=== PATIENT | female | born 1960 | race Caucasian/White ===

== ENCOUNTER 2021-10-22 20:44 | Inpatient (IN) ==
[2021-10-22] MEDS ORDERED: dilTIAZem HCl 5 MG/ML 5 ML VIAL IV STA (21:22)
[2021-10-22] MEDS ORDERED: STAT IV Infusion **Titration per Protocol STA (21:22)
[2021-10-22 21:26] LABS: Basophils # (auto) 0.02 K/uL (0-0.2); Basophils % (auto) 0.2 %; Eosinophils # (auto) 0.11 K/uL (0-0.5); Eosinophils % (auto) 1.1 %; Hematocrit (blood only) 36.7 % (37-47); Hemoglobin 11.6 g/dL (12.0-16.0); Immature Granulocytes # (auto) 0.03 K/uL (0.00-0.02); Immature Granulocytes % (auto) 0.3 %; Lymphocytes # (auto) 2.85 K/uL (1.2-3.4); Lymphocytes % (auto) 27.6 %; Mean Corpuscular Hemoglobin 26.4 pg (25-34); Mean Corpuscular Hgb Conc 31.6 g/dL (32-36); Mean Corpuscular Volume 83.6 fL (80-100); Mean Platelet Volume 9.8 fL (7.4-10.4); Monocytes # (auto) 0.88 K/uL (0.11-0.59); Monocytes % (auto) 8.5 %; Neutrophils # (auto) 6.44 K/uL (1.4-6.5); Neutrophils % (auto) 62.3 %; Platelet Count 303 K/uL (130-400); RDW Standard Deviation 46.2 fL (36.4-46.3); Red Blood Count 4.39 M/uL (4.2-5.4); White Blood Count 10.33 K/uL (4.8-10.8)
[2021-10-22] MEDS ORDERED: dilTIAZem HCL 125 MG in DEXTROSE 5% 100 ML IV SCH (21:30)
[2021-10-22 21:47] LABS: Partial Thromboplastin Ratio 0.9; Partial Thromboplastin Time 23.4 Seconds (21.0-31.0); Prothrombin Time 10.6 Seconds (9.0-12.0)
[2021-10-22 21:50] LABS: Alanine Aminotransferase 15 U/L (12-78); Albumin Globulin Ratio 0.8 (0.9-2); Albumin Level 3.7 gm/dl (3.4-5.0); Alkaline Phosphatase 66 U/L (45-117); Aspartate Aminotransferase 12 U/L (15-37); BUN Creatinine Ratio 20.2 (10-20); Bilirubin,Total 0.5 mg/dl (0.2-1); Blood Urea Nitrogen 21 mg/dl (7-18); Calcium 8.7 mg/dl (8.5-10.1); Carbon Dioxide 25 mmol/L (21-32); Chloride 105 mmol/L (98-107); Est GFR (African American) 66.6 ml/min; Est GFR (Non-African American) 57.4 ml/min; Globulin 4.4 gm/dl (2.5-4.0); Glucose 122 mg/dl (70-99); Lipase 151 U/L (73-393); Potassium 3.2 mmol/L (3.5-5.1); Sodium 140 mmol/L (136-145); Total Protein 8.1 gm/dl (6.4-8.2); Troponin I < 0.015 ng/ml (0-0.045)
[2021-10-22] MEDS ORDERED: Heparin IV Adult Wt-Based Low-Dose WITH Bolus Protocol IV STA (21:57)
[2021-10-22] MEDS ORDERED: HEPARIN SOD (PORCINE) 1000 UNIT/ML IV ONE (22:12)
[2021-10-22] MEDS ORDERED: HEPARIN SODIUM/DEXTROSE 25,000 UNITS/500 ML BAG IV SCH (22:15)
--- NOTE | 2021-10-22 23:38 | Emergency Department Note ---
Impression & Plan Atrial fibrillation with rapid ventricular response ED Provider Note Provider: Sctot Paulson MD DATE OF SERVICE: 10/22/2021 CHIEF COMPLAINT: Heart palpitations, back discomfort HISTORY OF PRESENT ILLNESS: Patient is a 60-year-old female history of hypertension and hypothyroidism presenting here today with maggy reporting onset about an hour prior to arrival of some palpitation sensation. Patient states he felt like her heart was beating fast and this is been consistent since it began. Patient denies chest pain or shortness of breath. Denies trauma. Reports has had little bit of back discomfort throughout the day and did come home from [facility]. Denies history of cardiac arrhythmia. Denies a significant cardiac history. Patient denies syncope. Denies fever or URI symptoms. Patient reports she does not take any aspirin regularly. REVIEW OF SYSTEMS: A total of 10 review of systems was obtained and negative except as stated above in the HPI. PAST MEDICAL HISTORY: As noted above MEDICATIONS: Reviewed home medications SOCIAL HISTORY:lives at home with maggy, works at [employer] PHYSICAL EXAM: GENERAL: alert and oriented in no acute distress on stretcher Head: normocephalic and atraumatic EYES: No injection, discharge or icterus. NECK: Trachea midline. LUNGS: Airway patent. No retractions. Breath sounds clear HEART: Irregular tachycardic rate and rhythm. No chest wall tenderness ABDOMEN: Soft and non-tender, without guarding or rebound. SKIN: Acyanotic, warm, dry EXTREMITIES: Without tenderness with 1+ bilateral lower extremity edema. NEUROLOGICAL: No focal deficits. No aphasia. No facial droop or slurred speech. Ambulatory EK bpm atrial fibrillation with rapid ventricular response. No acute ST segment elevation but diffuse ST segment depressions. QTc 458. CONTINUOUS CARDIAC MONITORING: was ordered and showed a heart rate of 100s to 150s bpm in atrial fibrillation 1 view chest x-ray per my interpretation: No evidence of pneumothorax or pneumonia. Borderline cardiomegaly. No free air under the diaphragm. Patient's laboratory studies and imaging reviewed. Differential includes Premature contractions, electrolyte abnormality, cardiac dysrhythmia, thyroid dysfunction, pulmonary embolism, infection, gastrointestinal, as well as other pathologies. IMPRESSION/MEDICAL DECISION MAKING: Patient with what appears to be new onset rapid atrial fibrillation. Given diltiazem start diltiazem drip. Blood pressure is elevated. Some mild back discomfort. Denies anterior chest pain. No trauma history. Mild hypokalemia noted but no signs of renal dysfunction. Troponin not elevated but some EKG changes indicative of likely some possible demand ischemia. Question she may bump her troponin going forward. Again rate control be important. Doubt acute ACS. Will start heparin drip. Not with severe back pain or chest pain and lower suspicion this represents dissection. No evidence of hepatitis or pancreatitis based on labs. Covid test negative. Patient not anxious to stay but after discussion with her and her fianc at bedside she was willing for further cardiac care here. Hospitalist contacted. DIAGNOSIS: Atrial fibrillation with rapid ventricular response DISPOSITION: Hospitalist will evaluate Patient was agreeable with this plan. Critical Care I have personally spent 32 minutes of critical care time in the direct management of this patient. This includes bedside care, interpretation of diagnostic studies, and testing, discussion with consultants, patient, and family members, and other required patient management activities. These 32 minutes is in excess of all separately billable procedures. Past Med/Surg History Medical History Hypertension Social History Smoking Status: Never smoker Preferred Language: Com[place] Feels Safe at Home: Yes Allergies Allergies Allergy/AdvReac Type Severity Reaction Status Date / Time lisinopril Allergy Unknown RASH Verified 10/22/21 22:16 simvastatin Allergy Unknown UNKNOWN Verified 10/22/21 22:16 baby oil Allergy Intermediate Rash Uncoded 10/22/21 22:16 Home Meds Home Medications Medication Instructions Recorded Confirmed alendronate 70 mg tablet 70 mg PO WK 02/04/21 10/22/21 atenolol 50 mg tablet 50 mg PO QAM 02/04/21 10/22/21 hydrochlorothiazide 25 mg tablet 25 mg PO QAM 02/04/21 10/22/21 naproxen 500 mg tablet 500 mg PO BID PRN 02/04/21 10/22/21 atorvastatin 20 mg tablet 20 mg PO DAILY 10/23/21 10/23/21 levothyroxine 100 mcg tablet 100 mcg PO DAILY 10/23/21 10/23/21 (Euthyrox) Previous Rx's Medication Instructions Recorded oxycodone-acetaminophen 5 mg-325 1 tab PO Q6H PRN #12 tab 02/04/21 mg tablet (Percocet) Results & Data (ED) Vital Signs Vital Signs - 24 hr 10/22/21 20:45 10/22/21 20:49 10/22/21 20:50 Temperature 36.4 C L Temperature Source Temporal Artery Scan Pulse Rate 149 H Pulse Rate [Finger] 140 H Pulse Rate from SpO2 Sensor Pulse Rhythm [Finger] Irregular Pulse Strength [Finger] Normal Respiratory Rate 18 16 Respiratory Effort / Characteristics Non-Labored Spontaneous Non-Labored Spontaneous Respiratory Depth Normal Respiratory Pattern Regular Blood Pressure 198/113 H Blood Pressure [Left Arm] 185/130 H Blood Pressure Mean 141 Blood Pressure Mean [Left Arm] 148 Blood Pressure Position Sitting Blood Pressure Position [Left Arm] Sitting Pulse Oximetry 97 99 99 Oxygen Delivery Method Room Air Room Air Room Air Sepsis Recent Fever Within 48 Hours No Sepsis New/Unexplained Change in Mental Status No Sepsis Action Taken by Nursing No Action Required 10/22/21 21:11 10/22/21 21:15 10/22/21 21:30 Temperature Temperature Source Pulse Rate 142 H 163 H 168 H Pulse Rate [Finger] Pulse Rate from SpO2 Sensor 109 H 154 H Pulse Rhythm [Finger] Pulse Strength [Finger] Respiratory Rate 20 37 H 21 Respiratory Effort / Characteristics Respiratory Depth Respiratory Pattern Blood Pressure Blood Pressure [Left Arm] Blood Pressure Mean Blood Pressure Mean [Left Arm] Blood Pressure Position Blood Pressure Position [Left Arm] Pulse Oximetry 99 98 Oxygen Delivery Method Sepsis Recent Fever Within 48 Hours Sepsis New/Unexplained Change in Mental Status Sepsis Action Taken by Nursing 10/22/21 21:45 10/22/21 22:00 10/22/21 22:15 Temperature Temperature Source Pulse Rate 116 H 146 H 118 H Pulse Rate [Finger] Pulse Rate from SpO2 Sensor 99 H 105 H 99 H Pulse Rhythm [Finger] Pulse Strength [Finger] Respiratory Rate 20 14 15 Respiratory Effort / Characteristics Respiratory Depth Respiratory Pattern Blood Pressure Blood Pressure [Left Arm] Blood Pressure Mean Blood Pressure Mean [Left Arm] Blood Pressure Position Blood Pressure Position [Left Arm] Pulse Oximetry 97 98 97 Oxygen Delivery Method Sepsis Recent Fever Within 48 Hours Sepsis New/Unexplained Change in Mental Status Sepsis Action Taken by Nursing 10/22/21 22:30 10/22/21 22:45 10/22/21 23:00 Temperature Temperature Source Pulse Rate 154 H 135 H 157 H Pulse Rate [Finger] Pulse Rate from SpO2 Sensor 134 H 107 H 104 H Pulse Rhythm [Finger] Pulse Strength [Finger] Respiratory Rate 17 18 16 Respiratory Effort / Characteristics Respiratory Depth Respiratory Pattern Blood Pressure Blood Pressure [Left Arm] Blood Pressure Mean Blood Pressure Mean [Left Arm] Blood Pressure Position Blood Pressure Position [Left Arm] Pulse Oximetry 97 97 97 Oxygen Delivery Method Sepsis Recent Fever Within 48 Hours Sepsis New/Unexplained Change in Mental Status Sepsis Action Taken by Nursing 10/22/21 23:15 10/22/21 23:30 10/22/21 23:45 Temperature Temperature Source Pulse Rate 150 H 135 H 125 H Pulse Rate [Finger] Pulse Rate from SpO2 Sensor 93 H 106 H 105 H Pulse Rhythm [Finger] Pulse Strength [Finger] Respiratory Rate 19 13 14 Respiratory Effort / Characteristics Respiratory Depth Respiratory Pattern Blood Pressure Blood Pressure [Left Arm] Blood Pressure Mean Blood Pressure Mean [Left Arm] Blood Pressure Position Blood Pressure Position [Left Arm] Pulse Oximetry 97 97 96 Oxygen Delivery Method Sepsis Recent Fever Within 48 Hours Sepsis New/Unexplained Change in Mental Status Sepsis Action Taken by Nursing 10/23/21 00:05 10/23/21 00:15 10/23/21 00:30 Temperature Temperature Source Pulse Rate 172 H 155 H 145 H Pulse Rate [Finger] Pulse Rate from SpO2 Sensor 97 H 94 H 100 H Pulse Rhythm [Finger] Pulse Strength [Finger] Respiratory Rate 18 18 Respiratory Effort / Characteristics Respiratory Depth Respiratory Pattern Blood Pressure Blood Pressure [Left Arm] Blood Pressure Mean Blood Pressure Mean [Left Arm] Blood Pressure Position Blood Pressure Position [Left Arm] Pulse Oximetry 96 97 97 Oxygen Delivery Method Sepsis Recent Fever Within 48 Hours Sepsis New/Unexplained Change in Mental Status Sepsis Action Taken by Nursing Laboratory Data Result diagrams: 10/22/21 21:12 10/22/21 21:12 Lab Results 10/22/21 10/22/21 10/22/21 Range/Units 21:12 21:12 21:12 WBC 10.33 (4.8-10.8) K/uL RBC 4.39 (4.2-5.4) M/uL Hgb 11.6 L (12.0-16.0) g/dL Hct 36.7 L (37-47) % MCV 83.6 (80-100) fL MCH 26.4 (25-34) pg MCHC 31.6 L (32-36) g/dL RDW Std Deviation 46.2 (36.4-46.3) fL RDW Coeff of Johnny 15.0 H (11.5-14.5) % Plt Count 303 (130-400) K/uL MPV 9.8 (7.4-10.4) fL Immature Gran % (Auto) 0.3 % Neut % (Auto) 62.3 % Lymph % (Auto) 27.6 % [place] % (Auto) 8.5 % Eos % (Auto) 1.1 % Baso % (Auto) 0.2 % Neut # (Auto) 6.44 (1.4-6.5) K/uL Lymph # (Auto) 2.85 (1.2-3.4) K/uL [place] # (Auto) 0.88 H (0.11-0.59) K/uL Eos # (Auto) 0.11 (0-0.5) K/uL Baso # (Auto) 0.02 (0-0.2) K/uL Immature Gran # (Auto) 0.03 H (0.00-0.02) K/uL PT 10.6 (9.0-12.0) Seconds INR 1.0 (0.9-1.1) APTT 23.4 (21.0-31.0) Seconds PTT Ratio 0.9 Sodium 140 (136-145) mmol/L Potassium 3.2 L (3.5-5.1) mmol/L Chloride 105 (98-107) mmol/L Carbon Dioxide 25 (21-32) mmol/L Anion Gap 10.0 (3-11) BUN 21 H (7-18) mg/dl Creatinine 1.06 (0.6-1.2) mg/dl Est Cr Clr Drug Dosing Not Reportable Est GFR ( Amer) 66.6 ml/min Est GFR (Non-Af Amer) 57.4 ml/min BUN/Creatinine Ratio 20.2 H (10-20) Glucose 122 H (70-99) mg/dl Calcium 8.7 (8.5-10.1) mg/dl Total Bilirubin 0.5 (0.2-1) mg/dl AST 12 L (15-37) U/L ALT 15 (12-78) U/L Alkaline Phosphatase 66 (45-117) U/L Troponin I < 0.015 (0-0.045) ng/ml Total Protein 8.1 (6.4-8.2) gm/dl Albumin 3.7 (3.4-5.0) gm/dl Globulin 4.4 H (2.5-4.0) gm/dl Albumin/Globulin Ratio 0.8 L (0.9-2) Lipase 151 (73-393) U/L Specimen Hemolysis SARS-CoV-2, RNA, NAAT (NEGATIVE) 10/22/21 Range/Units 22:00 WBC (4.8-10.8) K/uL RBC (4.2-5.4) M/uL Hgb (12.0-16.0) g/dL Hct (37-47) % MCV (80-100) fL MCH (25-34) pg MCHC (32-36) g/dL RDW Std Deviation (36.4-46.3) fL RDW Coeff of Johnny (11.5-14.5) % Plt Count (130-400) K/uL MPV (7.4-10.4) fL Immature Gran % (Auto) % Neut % (Auto) % Lymph % (Auto) % [place] % (Auto) % Eos % (Auto) % Baso % (Auto) % Neut # (Auto) (1.4-6.5) K/uL Lymph # (Auto) (1.2-3.4) K/uL [place] # (Auto) (0.11-0.59) K/uL Eos # (Auto) (0-0.5) K/uL Baso # (Auto) (0-0.2) K/uL Immature Gran # (Auto) (0.00-0.02) K/uL PT (9.0-12.0) Seconds INR (0.9-1.1) APTT (21.0-31.0) Seconds PTT Ratio Sodium (136-145) mmol/L Potassium (3.5-5.1) mmol/L Chloride (98-107) mmol/L Carbon Dioxide (21-32) mmol/L Anion Gap (3-11) BUN (7-18) mg/dl Creatinine (0.6-1.2) mg/dl Est Cr Clr Drug Dosing Est GFR ( Amer) ml/min Est GFR (Non-Af Amer) ml/min BUN/Creatinine Ratio (10-20) Glucose (70-99) mg/dl Calcium (8.5-10.1) mg/dl Total Bilirubin (0.2-1) mg/dl AST (15-37) U/L ALT (12-78) U/L Alkaline Phosphatase (45-117) U/L Troponin I (0-0.045) ng/ml Total Protein (6.4-8.2) gm/dl Albumin (3.4-5.0) gm/dl Globulin (2.5-4.0) gm/dl Albumin/Globulin Ratio (0.9-2) Lipase (73-393) U/L Specimen Hemolysis SARS-CoV-2, RNA, NAAT NEGATIVE (NEGATIVE) Administered Medications Diltiazem HCl 125 mg/ Dextrose 125 mls @ 5 mls/hr IV .Q24H BALJEET; Protocol Stop: 11/21/21 21:29 Last Admin: 10/22/21 21:57 Dose: 5 mg/hr, 5 mls/hr Documented by: [id number] Cosigned by: [id number] Heparin Sodium/Dextrose (Heparin Sodium/Dextrose) 25,000 units in 500 mls @ 20 mls/hr IV .Q24H BALJEET; Protocol Stop: 11/21/21 22:14 Last Admin: 10/23/21 00:51 Dose: 1,000 units/hr, 20 mls/hr Documented by: [id number] Cosigned by: [id number] Discontinued Medications Diltiazem HCl (Diltiazem Hcl 5 Mg/Ml 5 Ml Vial) 10 mg IV NOW STA Stop: 10/22/21 21:23 Last Admin: 10/22/21 21:37 Dose: 10 mg Documented by: [id number] Cosigned by: [id number] Diltiazem HCl (Diltiazem Hcl 5 Mg/Ml 5 Ml Vial) 10 mg IV NOW STA Stop: 10/23/21 00:39 Last Admin: 10/23/21 00:56 Dose: 10 mg Documented by: [id number] Cosigned by: [id number] Heparin Sodium/Dextrose (Heparin Iv Adult Wt-Based Low-Dose With Bolus Protocol) 1 ea IV NOW STA; Protocol Stop: 10/22/21 21:58 Last Admin: 10/23/21 00:53 Dose: 4,000 ea Documented by: [id number] Discharge Plan Visit Data Chief Complaint: Chest Pain Stated Complaint: CHEST PAIN ED Provider: Scott Paulson Discharge Problem: Atrial fibrillation with rapid ventricular response Patient Disposition: Admitted As Inpatient Discharge Instructions Interventions: ED Discharge Assessment Last Done: 10/23/21 02:21
[2021-10-23] MEDS ORDERED: dilTIAZem HCl 5 MG/ML 5 ML VIAL IV STA (00:38)
[2021-10-23] MEDS ORDERED: oxyCODONE/ACETAMINOPHEN 5mg/325mg TAB PO PRN (02:15)
[2021-10-23] MEDS ORDERED: ACETAMINOPHEN 325 MG TAB PO PRN (02:15)
[2021-10-23] MEDS ORDERED: NITROGLYCERIN SL 0.4 MG/TAB TAB SL PRN (02:15)
[2021-10-23] MEDS ORDERED: ONDANSETRON INJ 2 MG/ML 2 ML VIAL IV PRN (02:15)
[2021-10-23] MEDS ORDERED: LEVOTHYROXINE SODIUM 100 MCG TABLET PO SCH (06:30)
[2021-10-23] MEDS ORDERED: POTASSIUM CHLORIDE CRTAB 20 MEQ TABCR PO STA (07:03)
[2021-10-23 07:23] LABS: Basophils # (auto) 0.03 K/uL (0-0.2); Basophils % (auto) 0.4 %; Eosinophils # (auto) 0.09 K/uL (0-0.5); Eosinophils % (auto) 1.3 %; Hematocrit (blood only) 35.5 % (37-47); Hemoglobin 11.1 g/dL (12.0-16.0); Immature Granulocytes # (auto) 0.01 K/uL (0.00-0.02); Immature Granulocytes % (auto) 0.1 %; Lymphocytes # (auto) 2.52 K/uL (1.2-3.4); Lymphocytes % (auto) 36.4 %; Mean Corpuscular Hemoglobin 26.2 pg (25-34); Mean Corpuscular Hgb Conc 31.3 g/dL (32-36); Mean Corpuscular Volume 83.9 fL (80-100); Mean Platelet Volume 9.6 fL (7.4-10.4); Monocytes # (auto) 0.57 K/uL (0.11-0.59); Monocytes % (auto) 8.2 %; Neutrophils % (auto) 53.6 %; Platelet Count 280 K/uL (130-400); RDW Coefficient of Variation 15.1 % (11.5-14.5); RDW Standard Deviation 46.6 fL (36.4-46.3); Red Blood Count 4.23 M/uL (4.2-5.4); White Blood Count 6.92 K/uL (4.8-10.8)
[2021-10-23 07:42] LABS: Partial Thromboplastin Ratio 1.8
--- NOTE | 2021-10-23 07:42 | History and Physical Report ---
DATE OF ADMISSION: 10/23/2021. CHIEF COMPLAINT: New-onset atrial fibrillation. HISTORY OF PRESENT ILLNESS: This is a 60-year-old female with past medical history significant for hyperlipidemia, hypothyroidism, prediabetes, hypertension, obesity, female infertility, senile osteoporosis, depression, psychosis unspecific, comes because of feeling chest discomfort and palpitations in the evening. In the ER, she was found to have rapid AFib. Started on Cardizem drip and IV heparin. Currently, feeling better, but when she was trying to go to bathroom, she was feeling dizzy. Denies any shortness of breath, no cough, no fever, no chills, no headache, no blurred visions, no earache, no runny nose, no sore throat, no nausea, no abdominal pain. Normal bowel and bladder movements. Currently resting comfortably. ALLERGIES: LISINOPRIL, SIMVASTATIN, AND BABY OIL. PAST MEDICAL HISTORY: As mentioned above. PAST SURGICAL HISTORY: Cystoscopy, bilateral hip fracture repair. MEDICATIONS: The patient is on alendronate 70 mg p.o. weekly, atenolol 50 mg p.o. a.m., hydrochlorothiazide 25 mg p.o. a.m., naproxen 500 mg p.o. b.i.d. p.r.n., Percocet 1 tablet p.o. q. 6 hours p.r.n. FAMILY HISTORY: Significant for mother had cervical cancer, stroke; father had diabetes, hypertension. SOCIAL HISTORY: No smoking. Alcohol rare. No drug use. REVIEW OF SYSTEMS: As per HPI. Rest of the review of systems is negative. PHYSICAL EXAMINATION: GENERAL: The patient is morbidly obese, not in acute distress. VITAL SIGNS: Temperature 36.4, pulse 143, respiratory rate 16, blood pressure 180s/110s, oxygen 99% on room air. HEENT: Pupils equal, round and reactive to light. Oral mucosa moist. NECK: No JVD, no neck masses. CARDIOVASCULAR: S1 and S2 heard, tachycardia. Irregular rhythm. No murmurs. RESPIRATORY SYSTEM: Normal AP diameter. No accessory muscle use. No wheezing, no crackles. ABDOMEN: Soft. Bowel sounds present, nontender, no distention. CENTRAL NERVOUS SYSTEM: Cranial nerves II-XII grossly intact, nonfocal. EXTREMITIES: Bilateral lower extremity edema present, no erythema seen. LABORATORY DATA: WBC 10.3, hemoglobin 11.6, hematocrit 36.7, platelets 303. PT 10.6, INR 1, APTT 23.4. Sodium 140, potassium 3.2, chloride 105, bicarbonate 25, BUN 21, creatinine 1.06, serum glucose 102, calcium 8.7, total bilirubin 0.5, AST 12, ALT 15, alkaline phosphatase 66. Troponin I less than 0.015. Lipase 151. SARS-CoV-2 PCR negative. IMAGING DATA: Chest x-ray, no acute findings. EKG: Rapid AFib at the rate of 148. ST abnormalities seen. ASSESSMENT AND PLAN: This is a 60-year-old female who presents with chest discomfort and rapid atrial fibrillation. 1. Rapid atrial fibrillation, new onset: ER started on Cardizem drip and heparin drip, which will be continued. Monitor the heart rates. Monitor in the tele. Serial enzymes, echo, and keep her n.p.o. and consult cardiology in the a.m. for further recommendations. 2. Chest discomfort probably from above. Will follow serial enzymes, echocardiograms, and consult cardiology in the a.m. 3. History of hypertension: Continue her home atenolol and hydrochlorothiazide. Currently getting Cardizem drip. Will monitor the blood pressure. 4. Morbid obesity: Needs counseling. 5. Hypothyroidism: On levothyroxine. 6. Prediabetes: Will follow HbA1c levels.ISS 7. Osteoporosis: On alendronate. 8. Deep venous thrombosis prophylaxis: On IV heparin. DISPOSITION: Admit to tele floor. Expect to discharge home and follow with family doctor. Job ID: [id number] [facility]
[2021-10-23 07:51] LABS: BUN Creatinine Ratio 25.8 (10-20); Calcium 8.5 mg/dl (8.5-10.1); Creatinine Clr Calc Pharmacy 107.5 ml/min; Est GFR (African American) 88.2 ml/min; Est GFR (Non-African American) 76.1 ml/min; Magnesium 2.4 mg/dl (1.8-2.4); Potassium 3.4 mmol/L (3.5-5.1)
[2021-10-23 07:54] LABS: Partial Thromboplastin Time 46.8 Seconds (21.0-31.0)
[2021-10-23 08:11] LABS: Thyroid Stimulating Hormone 2.54 uIu/ml (0.300-4.500); Troponin I 0.227 ng/ml (0-0.045)
--- NOTE | 2021-10-23 08:54 | Cardiology Consultation ---
Date of Consultation October 23, 2021 Assessment & Plan (1) Atrial fibrillation with rapid ventricular response: (2) Hypertension: The patient spontaneously converted to normal sinus rhythm and I believe she can be continued on her beta-annamaria for now. In regard to anticoagulation, the patient's Gilbert vas score is 2 so she should return home on anticoagulation. An echocardiogram was completed and I will review it. I believe the borderline elevation in her cardiac troponin is related to stress from the atrial fibrillation and RVR and not acute coronary syndrome. History of Present Illness Attending Physician: Dagmar Soriano MD History of Present Illness This is a morbidly obese 60-year-old female who presented with heart palpitations and tachycardia. The patient was found to be in atrial fibrillation with RVR when she arrived to the emergency department. The patient was admitted and started on a diltiazem drip to control her heart rate. She converted spontaneously to sinus rhythm overnight. She has maintained sinus rhythm for several hours. She has no previous history of heart disease. No previous history of atrial arrhythmias. The patient's second troponin is slightly elevated which most likely reflects stress induced leakage of troponin due to the atrial fibrillation with RVR. Echocardiogram was completed and I will review it when it is available. Past medical history: Female infertility DEPRESS PSYCHOSIS-UNSPEC Dyslipidemia, goal LDL below 160 Adult body mass index 60.0-69.9 (HCC) Hypothyroidism due to acquired atrophy of thyroid Essential hypertension with goal blood pressure less than 140/90 Senile osteoporosis Prediabetes Allergies Allergy/AdvReac Type Severity Reaction Status Date / Time lisinopril Allergy Unknown RASH Verified 10/22/21 22:16 simvastatin Allergy Unknown UNKNOWN Verified 10/22/21 22:16 baby oil Allergy Intermediate Rash Uncoded 10/22/21 22:16 Home Medications Medication Instructions Recorded Confirmed Type alendronate 70 mg tablet 70 mg PO WK 02/04/21 10/22/21 History atenolol 50 mg tablet 50 mg PO QAM 02/04/21 10/22/21 History hydrochlorothiazide 25 mg tablet 25 mg PO QAM 02/04/21 10/22/21 History naproxen 500 mg tablet 500 mg PO BID PRN 02/04/21 10/22/21 History oxycodone-acetaminophen 5 mg-325 1 tab PO Q6H PRN #12 tab 02/04/21 10/22/21 Rx mg tablet (Percocet) atorvastatin 20 mg tablet 20 mg PO DAILY 10/23/21 10/23/21 History levothyroxine 100 mcg tablet 100 mcg PO DAILY 10/23/21 10/23/21 History (Euthyrox) Patient History Medical History Hypertension Social History Smoking Status: Never smoker Second Hand Exposure: No; Do You Dip or Chew Tobacco: No; Hx Alcohol Use: No Hx Substance Use: No Preferred Language: Greenlandic Communication Ability: Effective Cigar Inspector Required: No Beliefs That Will Affect Care: None Current Living Situation: Other Current Living Situation Comment: Home with Fiancee Other Information That Helps Us Care for You: No Feels Safe at Home: Yes Safety Concerns: Feels Safe At This Time Assistive Devices: Cane and Walker Review of Systems Review of Systems: Review of Systems: See HPI for pertinent positives. All other 10 point review of systems are negative. Physical Exam Physical Exam: General: no acute distress and stated age Head: normocephalic, no masses, lesions, tenderness or abnormalities Eyes: conjunctiva are pink and non-injected, sclera clear Neck: supple, no adenopathy, no bruits, normal jugular venous pulse, no hepatojugular reflux Chest: normal shape and normal respiratory effort Lungs: clear to auscultation and percussion Cardiac Exam: - regular rate & rhythm, no murmurs gallops or rubs - normal S1, normal S2 Pulses: 2(+) throughout Abdomen: abdomen soft, non-tender, no abnormal masses and no hepatosplenomegaly Musculoskeletal: no gait disturbance, no joint inflammation, no deforming arthritis Extremities: no edema and no cyanosis Neuro: grossly normal exam Results & Data ([facility]) Vital Signs (Past 12 Hours) Vital Signs Temp Pulse Pulse Resp BP BP Pulse Ox 10/23/21 07:00 36.8 C 71 20 169/81 H 95 10/23/21 03:50 36.7 C 72 20 188/92 H 96 10/23/21 02:38 127 H 10/23/21 02:15 37 C 80 17 142/61 H 96 10/23/21 01:45 112 H 20 96 10/23/21 01:30 108 H 18 96 10/23/21 01:15 135 H 17 95 10/23/21 01:00 147 H 18 117/78 97 10/23/21 00:45 125 H 16 160/89 H 96 10/23/21 00:30 145 H 18 97 10/23/21 00:15 155 H 18 97 10/23/21 00:05 172 H 96 10/22/21 23:45 125 H 14 96 10/22/21 23:30 135 H 13 97 10/22/21 23:15 150 H 19 97 10/22/21 23:00 157 H 16 97 10/22/21 22:45 135 H 18 97 10/22/21 22:30 154 H 17 97 10/22/21 22:15 118 H 15 97 10/22/21 22:00 146 H 14 98 10/22/21 21:45 116 H 20 97 10/22/21 21:30 168 H 21 98 10/22/21 21:15 163 H 37 H 99 10/22/21 21:11 142 H 20 Laboratory Results Laboratory Results - last 24 hr 10/22/21 10/22/21 10/22/21 21:12 21:12 21:12 WBC 10.33 RBC 4.39 Hgb 11.6 L Hct 36.7 L MCV 83.6 MCH 26.4 MCHC 31.6 L RDW Std Deviation 46.2 RDW Coeff of Johnny 15.0 H Plt Count 303 MPV 9.8 Immature Gran % (Auto) 0.3 Neut % (Auto) 62.3 Lymph % (Auto) 27.6 [place] % (Auto) 8.5 Eos % (Auto) 1.1 Baso % (Auto) 0.2 Neut # (Auto) 6.44 Lymph # (Auto) 2.85 [place] # (Auto) 0.88 H Eos # (Auto) 0.11 Baso # (Auto) 0.02 Immature Gran # (Auto) 0.03 H PT 10.6 INR 1.0 APTT 23.4 PTT Ratio 0.9 Sodium 140 Potassium 3.2 L Chloride 105 Carbon Dioxide 25 Anion Gap 10.0 BUN 21 H Creatinine 1.06 Est Cr Clr Drug Dosing Not Reportable Est GFR ( Amer) 66.6 Est GFR (Non-Af Amer) 57.4 BUN/Creatinine Ratio 20.2 H Glucose 122 H Calcium 8.7 Magnesium Total Bilirubin 0.5 AST 12 L ALT 15 Alkaline Phosphatase 66 Troponin I < 0.015 Total Protein 8.1 Albumin 3.7 Globulin 4.4 H Albumin/Globulin Ratio 0.8 L Lipase 151 TSH Specimen Hemolysis SARS-CoV-2, RNA, NAAT 10/22/21 10/23/21 10/23/21 22:00 07:09 07:09 WBC RBC Hgb Hct MCV MCH MCHC RDW Std Deviation RDW Coeff of Johnny Plt Count MPV Immature Gran % (Auto) Neut % (Auto) Lymph % (Auto) [place] % (Auto) Eos % (Auto) Baso % (Auto) Neut # (Auto) Lymph # (Auto) [place] # (Auto) Eos # (Auto) Baso # (Auto) Immature Gran # (Auto) PT INR APTT 46.8 H* PTT Ratio 1.8 Sodium 140 Potassium 3.4 L Chloride 107 Carbon Dioxide 25 Anion Gap 9.0 BUN 22 H Creatinine 0.84 Est Cr Clr Drug Dosing 107.5 Est GFR ( Amer) 88.2 Est GFR (Non-Af Amer) 76.1 BUN/Creatinine Ratio 25.8 H Glucose 127 H Calcium 8.5 Magnesium 2.4 Total Bilirubin AST ALT Alkaline Phosphatase Troponin I 0.227 H* Total Protein Albumin Globulin Albumin/Globulin Ratio Lipase TSH 2.540 Specimen Hemolysis SARS-CoV-2, RNA, NAAT NEGATIVE 10/23/21 10/23/21 07:09 11:16 WBC 6.92 RBC 4.23 Hgb 11.1 L Hct 35.5 L MCV 83.9 MCH 26.2 MCHC 31.3 L RDW Std Deviation 46.6 H RDW Coeff of Johnny 15.1 H Plt Count 280 MPV 9.6 Immature Gran % (Auto) 0.1 Neut % (Auto) 53.6 Lymph % (Auto) 36.4 [place] % (Auto) 8.2 Eos % (Auto) 1.3 Baso % (Auto) 0.4 Neut # (Auto) 3.70 Lymph # (Auto) 2.52 [place] # (Auto) 0.57 Eos # (Auto) 0.09 Baso # (Auto) 0.03 Immature Gran # (Auto) 0.01 PT INR APTT PTT Ratio Sodium Potassium Chloride Carbon Dioxide Anion Gap BUN Creatinine Est Cr Clr Drug Dosing Est GFR ( Amer) Est GFR (Non-Af Amer) BUN/Creatinine Ratio Glucose Calcium Magnesium Total Bilirubin AST ALT Alkaline Phosphatase Troponin I Pending Total Protein Albumin Globulin Albumin/Globulin Ratio Lipase TSH Specimen Hemolysis SARS-CoV-2, RNA, NAAT Medications Administered Current Inpatient Medications Alendronate Sodium (Alendronate Sodium 70 Mg Tab) 70 mg PO Sa@0630 [facility], [facility]1983 Stop: 11/24/21 06:29 Apixaban (Apixaban 5 Mg Tablet) 5 mg PO BID [facility]1983 Stop: 11/22/21 11:59 Atenolol (Atenolol 50 Mg Tablet) 50 mg PO QAM [facility], [facility]1983 Stop: 11/22/21 08:59 Last Admin: 10/23/21 08:21 Dose: 50 mg Documented by: Atorvastatin Calcium (Atorvastatin 20 Mg Tab) 20 mg PO DAILY [facility], [facility]1983 Stop: 11/22/21 08:59 Last Admin: 10/23/21 08:21 Dose: 20 mg Documented by: Hydrochlorothiazide (Hydrochlorothiazide 25 Mg Tab) 25 mg PO QAM [facility], [facility]1983 Stop: 11/22/21 08:59 Last Admin: 10/23/21 08:21 Dose: 25 mg Documented by: Levothyroxine Sodium (Levothyroxine Sodium 100 Mcg Tablet) 100 mcg PO DAILYBB [facility], [facility]1983 Stop: 11/22/21 06:29 Last Admin: 10/23/21 06:39 Dose: 100 mcg Documented by: Miscellaneous (Stop Order) 1 ea N/A ONE ONE Stop: 10/23/21 12:01 Oxycodone/Acetaminophen (Oxycodone/Acetaminophen 5mg/325mg Tab) 1 tab PO Q6H PRN PRN Reason: pain Stop: 11/06/21 02:14 Last Admin: 10/23/21 08:57 Dose: 1 tab Documented by:
[2021-10-23] MEDS ORDERED: ATORVASTATIN 20 MG TAB PO SCH (09:00)
[2021-10-23] MEDS ORDERED: ATENOLOL 50 MG TABLET PO SCH (09:00)
[2021-10-23] MEDS ORDERED: hydroCHLOROthiazide 25 MG TAB PO SCH (09:00)
--- NOTE | 2021-10-23 10:58 | XRay Report ---
XR chest 1V portable HISTORY: Atypical Chest Pain COMPARISON: Chest 06/18/2021. FINDINGS: No pneumothorax. No pleural effusions. The cardiac silhouette is mildly enlarged. No focal lung consolidations to suggest pneumonia. No evidence for pulmonary edema. Old, healed upper right ri b fractures. IMPRESSION: Mild cardiomegaly. ACT 112: Negative or not required by law. Electronically signed by: Clinton Chen M.D. 10/23/2021 10:56 AM
[2021-10-23] MEDS ORDERED: APIXABAN 5 MG TABLET PO SCH (12:00)
--- NOTE | 2021-10-23 12:27 | Electrocardiogram Report ---
Test Reason : Blood Pressure : / mmHG Vent. Rate : 148 BPM Atrial Rate : 197 BPM P-R Int : 000 ms QRS Dur : 096 ms QT Int : 292 ms P-R-T Axes : 000 007 191 degrees QTc Int : 458 ms Atrial fibrillation with rapid ventricular response Minimal voltage criteria for LVH, may be normal variant Marked ST abnormality, possible inferolateral subendocardial injury Abnormal ECG Confirmed by Frankie Escalera ([id number]) on 10/23/2021 12:27:05 PM Referred By: REFERRED SELF Confirmed By:Thomas Escalera
[2021-10-23 13:11] LABS: Partial Thromboplastin Ratio 0.9; Partial Thromboplastin Time 24.9 Seconds (21.0-31.0)
--- NOTE | 2021-10-23 13:44 | Discharge Summary ---
Date of Service October 23, 2021 Admission HPI Per Admitting Provider This is a 60-year-old female with past medical history significant for hyperlipidemia, hypothyroidism, prediabetes, hypertension, obesity, female infertility, senile osteoporosis, depression, psychosis unspecific, comes because of feeling chest discomfort and palpitations in the evening. In the ER, she was found to have rapid AFib. Started on Cardizem drip and IV heparin. Currently, feeling better, but when she was trying to go to bathroom, she was feeling dizzy. Denies any shortness of breath, no cough, no fever, no chills, no headache, no blurred visions, no earache, no runny nose, no sore throat, no nausea, no abdominal pain. Normal bowel and bladder movements. Currently resting comfortably. Admission Exam Per Admitting Provider GENERAL: The patient is morbidly obese, not in acute distress. VITAL SIGNS: Temperature 36.4, pulse 143, respiratory rate 16, blood pressure 180s/110s, oxygen 99% on room air. HEENT: Pupils equal, round and reactive to light. Oral mucosa moist. NECK: No JVD, no neck masses. CARDIOVASCULAR: S1 and S2 heard, tachycardia. Irregular rhythm. No murmurs. RESPIRATORY SYSTEM: Normal AP diameter. No accessory muscle use. No wheezing, no crackles. ABDOMEN: Soft. Bowel sounds present, nontender, no distention. CENTRAL NERVOUS SYSTEM: Cranial nerves II-XII grossly intact, nonfocal. EXTREMITIES: Bilateral lower extremity edema present, no erythema seen. Principal Diagnosis Atrial fibrillation with rapid ventricular rate Discharge Exam Constitutional + well hydrated and + morbidly obese; no acute distress Eyes PERRL, conjunctivae normal, anicteric sclerae ENMT external ear and nose normal, oropharynx normal Respiratory normal respiratory effort, lungs clear to auscultation Cardiovascular RRR, no murmur, no edema Gastrointestinal (Abdomen) normal bowel sounds, soft, nontender, no hepatosplenomegaly Musculoskeletal no cyanosis or clubbing, extremities motor strength 5/5 Neurologic PERRL, EOMI, accommodation nl, no face palsy, no dysarthria Psychiatric A+Ox3, euthymic affect Discharge Data Allergies Allergy/AdvReac Type Severity Reaction Status Date / Time lisinopril Allergy Unknown RASH Verified 10/22/21 22:16 simvastatin Allergy Unknown UNKNOWN Verified 11/24/21 22:16 baby oil Allergy Intermediate Rash Uncoded 10/22/21 22:16 Consultations 10/22/21 22:22 ED Decision to Admit Stat Hospital Course (1) Atrial fibrillation with rapid ventricular response: Atrial fibrillation, new onset with rapid ventricular rate Was started on cardizem drip in ER [facility] 2. Was started on heparin drip Afib converted to sinus rhythm this morning. Cardizem drip discontinued Chest discomfort resolved Evaluated by Cardiology. Echo grossly unremarkable except for moderate Aortic valve sclerosis without significant stenosis. Continue home atenolol Anticoagulation changed to eliquis. Patient educated on this Morbid obesity: Counselled on need for weight loss and lifestyle modification. Hypothyroidism: Continue levothyroxine. Total Time Total Time Spent Total Time Spent (In Minutes): 35 Total Time Includes: Examination of the Patient, Discharge Planning, Medication Reconciliation and Communication With Other Providers Discharge Plan Discharge Items Patient Disposition: Home - Self-Care Reason For Visit: CHEST PAIN, PALPITATIONS Discharge Diagnosis: Chest Pain New onset Atrial fibrillation with rapid ventricular rate Activity: Resume your previous activity Non-emergency contact: Primary Care Provider and Licensed Professional Counselor Call non-emergency contact if: you have any medication questions and your symptoms worsen Follow-up/Referrals: Rik Alan, [Primary Care Provider] - Diet: Heart Healthy Addtl Attending Provider Instructions: Ms Cox You came to the hospital with chest discomfort and palpitations. You were evaluated and found to have new onset Atrial fibrillation with rapid rate. This was managed with medications Your heart rhythm reverted to normal. Due to risk of stroke, you were started on blood thinner called eliquis / apixaban. Please take as prescribed. Please use tylenol as needed for pain. Stop taking naproxen while on the blood thinner. Please ensure follow up with your Primary Doctor. It was a pleasure taking care of you. Pending Studies at Discharge: No Stand-Alone Forms: My [employer], Smoking Cessation Medications and DC Order Prescriptions: New Eliquis 5 mg Tablet 5 mg PO BID Qty: 60 RF: 0 Continued alendronate 70 mg tablet 70 mg PO WK RF: 0 hydrochlorothiazide 25 mg tablet 25 mg PO QAM RF: 0 atenolol 50 mg tablet 50 mg PO QAM RF: 0 oxycodone-acetaminophen [Percocet] 5-325 mg tablet 1 tab PO Q6H PRN (Reason: pain) Qty: 12 RF: 0 atorvastatin 20 mg Tablet 20 mg PO DAILY RF: 0 levothyroxine [Euthyrox] 100 mcg tablet 100 mcg PO DAILY RF: 0 Discontinued naproxen 500 mg tablet 500 mg PO BID PRN (Reason: Pain) RF: 0 Discharge Orders: Discharge Order (Routine); Ordered 10/23/21 Ordered By: Dagmar Sorinao Admission Data Admit Date/Time: 10/23/21 00:38 Attending Provider: Dagmar Soriano I. Admit Provider: Jeronimo Sullivan Primary Care Provider: Rik Alan Other Providers: Jeronimo Sullivan Other Interventions: Discharge Summary Assessment (RN) Last Done: 10/23/21 13:49
[2021-10-23] MEDS ORDERED: HEPARIN SOD (PORCINE) 1000 UNIT/ML IV ONE (23:45)
[2021-10-25] MEDS ORDERED: ALENDRONATE SODIUM 70 MG TAB PO SCH (06:30)
== END 2021-10-23 15:00 | disposition home or self-care (01) | DRG 309 ==
LOC: ED 20:44 → 2S 10-23 00:38
DX: E78.5 Hyperlipidemia, unspecified; R73.03 Prediabetes; I10 Essential (primary) hypertension; R79.89 Other specified abnormal findings of blood chemistry; Z79.899 Other long term (current) drug therapy; Z20.822 Contact with and (suspected) exposure to COVID-19; M81.0 Age-related osteoporosis without current pathological fracture; Z79.890 Hormone replacement therapy; Z82.49 Family history of ischemic heart disease and other diseases of the circulatory system; Z51.81 Encounter for therapeutic drug level monitoring; I48.91 Unspecified atrial fibrillation; Z88.8 Allergy status to other drugs, medicaments and biological substances; Z68.43 Body mass index [BMI] 50.0-59.9, adult; E66.01 Morbid (severe) obesity due to excess calories; Z91.048 Other nonmedicinal substance allergy status; E03.9 Hypothyroidism, unspecified

== ENCOUNTER 2022-05-15 22:09 | Inpatient (IN) ==
[2022-05-15] MEDS ORDERED: dilTIAZem HCl 5 MG/ML 5 ML VIAL IV STA (22:46)
[2022-05-15] MEDS ORDERED: dilTIAZem HCl 5 MG/ML 5 ML VIAL IV ONE (22:47)
[2022-05-15 23:08] LABS: Hematocrit (blood only) 34.3 % (37-47); Hemoglobin 11.1 g/dL (12.0-16.0); Mean Corpuscular Hemoglobin 27.6 pg (25-34); Mean Corpuscular Hgb Conc 32.4 g/dL (32-36); Mean Corpuscular Volume 85.3 fL (80-100); Mean Platelet Volume 9.7 fL (7.4-10.4); Platelet Count 305 K/uL (130-400); RDW Coefficient of Variation 14.9 % (11.5-14.5); RDW Standard Deviation 47.1 fL (36.4-46.3); Red Blood Count 4.02 M/uL (4.2-5.4); White Blood Count 10.29 K/uL (4.8-10.8)
[2022-05-15] MEDS ORDERED: SODIUM CHLORIDE 0.9% 500 ML IV ONE (23:19)
[2022-05-15 23:22] LABS: Albumin Globulin Ratio 1.3 (0.9-2); Albumin Level 3.9 gm/dl (3.4-5.0); BUN Creatinine Ratio 23.9 (10-20); Bilirubin,Total 0.5 mg/dl (0.2-1.0); Calcium 8.5 mg/dl (8.5-10.1); Creatinine Clr Calc Pharmacy 104.8 ml/min; Est GFR (African American) 82.8 ml/min; Est GFR (Non-African American) 71.4 ml/min; Globulin 3.1 gm/dl (2.5-4.0); Potassium 3.8 mmol/L (3.5-5.1)
[2022-05-15 23:23] LABS: Troponin I High Sensitivity 7.1 pg/ml (0-14)
[2022-05-15 23:27] LABS: Basophils # (auto) 0.02 K/uL (0-0.2); Basophils % (auto) 0.2 %; Eosinophils # (auto) 0.16 K/uL (0-0.5); Eosinophils % (auto) 1.6 %; Immature Granulocytes # (auto) 0.03 K/uL (0.00-0.02); Immature Granulocytes % (auto) 0.3 %; Lymphocytes # (auto) 3.27 K/uL (1.2-3.4); Lymphocytes % (auto) 31.8 %; Monocytes % (auto) 7.8 %; Neutrophils # (auto) 6.01 K/uL (1.4-6.5); Neutrophils % (auto) 58.3 %
[2022-05-16] MEDS ORDERED: STAT IV Infusion **Titration per Protocol STA (00:20)
--- NOTE | 2022-05-16 00:25 | Emergency Department Note ---
History of Present Illness General Chief complaint: Tachycardia Stated complaint: FAST HEARTBEAT, SOB History of Present Illness Maximum Pain Intensity: 5 This 61-year-old with history of A. fib on Eliquis presents to the ER complaining of racing heart chest discomfort and shortness of breath Location: Chest Quality: Racing Severity: Moderate Duration: Today Timing: Today Context: Patient was concerned and came in Modifying factors: better with nothing; worse with activity patient is concerned she is back in A. fib. She is a history of this. She is on Eliquis. Patient denies fever, chills, flulike illness. She currently has a sore throat and ear discomfort and is on Bactrim by the PCP. Home Medications Medication Instructions Recorded Confirmed Type apixaban 5 mg tablet (Eliquis) 5 mg PO BID #60 tab 10/23/21 05/15/22 Rx atorvastatin 20 mg tablet 20 mg PO DAILY 10/23/21 05/15/22 History levothyroxine 100 mcg tablet 100 mcg PO DAILY 10/23/21 05/15/22 History (Euthyrox) acetaminophen 650 mg 1,300 mg PO Q8H PRN 05/15/22 05/15/22 History tablet,extended release alendronate 70 mg tablet 70 mg PO WK 05/15/22 05/15/22 History carvedilol 6.25 mg tablet 6.25 mg PO BID 05/15/22 05/15/22 History sulfamethoxazole 800 1 tab PO BID 05/15/22 05/15/22 History mg-trimethoprim 160 mg tablet (Bactrim DS) Allergies Allergy/AdvReac Type Severity Reaction Status Date / Time lisinopril Allergy Intermediate RASH Verified 05/15/22 23:12 simvastatin Allergy Unknown UNKNOWN Verified 05/15/22 23:12 baby oil Allergy Intermediate Rash Uncoded 05/15/22 23:12 Past Med/Surg History Medical History Hypertension Surgical History (Updated 05/16/22 @ 00:21 by Asya Haji PA-C) No pertinent past surgical history Social History Smoking Status: Never smoker Second Hand Exposure: No; Hx Alcohol Use: No Hx Substance Use: No Preferred Language: Turkish Communication Ability: Effective 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 Public Message Service Required: No Beliefs That Will Affect Care: None Current Living Situation: Other Current Living Situation Comment: Home with Ann Marie Feels Safe at Home: Yes Assistive Devices: Cane and Walker Review of Systems A total of 10 systems reviewed and were otherwise negative Physical Exam Vital Signs Vital Signs - 24 hr 05/15/22 22:17 05/15/22 22:50 05/15/22 22:51 Temperature 36.5 C Temperature Source Temporal Artery Scan Pulse Rate 101 H 142 H Pulse Rate [Right Finger] Respiratory Rate 20 24 Respiratory Effort / Characteristics Non-Labored Spontaneous Respiratory Depth Normal Respiratory Pattern Regular Blood Pressure 190/90 H 156/98 H Blood Pressure [Right Arm] Blood Pressure Mean 123 117 Blood Pressure Mean [Right Arm] Pulse Oximetry 96 97 Oxygen Delivery Method Room Air Sepsis Recent Fever Within 48 Hours No Sepsis New/Unexplained Change in Mental Status N/A Sepsis Action Taken by Nursing No Action Required 05/15/22 22:54 05/15/22 23:00 05/15/22 23:46 Temperature Temperature Source Pulse Rate 87 80 97 H Pulse Rate [Right Finger] Respiratory Rate 21 18 18 Respiratory Effort / Characteristics Respiratory Depth Respiratory Pattern Blood Pressure 103/63 131/63 172/101 H Blood Pressure [Right Arm] Blood Pressure Mean 76 85 124 Blood Pressure Mean [Right Arm] Pulse Oximetry 97 96 97 Oxygen Delivery Method Room Air Sepsis Recent Fever Within 48 Hours Sepsis New/Unexplained Change in Mental Status Sepsis Action Taken by Nursing 05/16/22 00:03 05/16/22 00:44 05/16/22 00:51 Temperature Temperature Source Pulse Rate 142 H Pulse Rate [Right Finger] 132 H 123 H Respiratory Rate 23 20 18 Respiratory Effort / Characteristics Respiratory Depth Respiratory Pattern Blood Pressure Blood Pressure [Right Arm] 174/70 H 151/60 H Blood Pressure Mean Blood Pressure Mean [Right Arm] 104 90 Pulse Oximetry 97 97 Oxygen Delivery Method Room Air Room Air Sepsis Recent Fever Within 48 Hours Sepsis New/Unexplained Change in Mental Status Sepsis Action Taken by Nursing 05/16/22 01:01 Temperature Temperature Source Pulse Rate 128 H Pulse Rate [Right Finger] Respiratory Rate 20 Respiratory Effort / Characteristics Respiratory Depth Respiratory Pattern Blood Pressure 145/62 H Blood Pressure [Right Arm] Blood Pressure Mean 89 Blood Pressure Mean [Right Arm] Pulse Oximetry Oxygen Delivery Method Sepsis Recent Fever Within 48 Hours Sepsis New/Unexplained Change in Mental Status Sepsis Action Taken by Nursing VITALS: Vitals are noted on the nurse's note and reviewed by myself. Vital signs tachycardic and hypertensive. GENERAL: Pleasant female with an elevated BMI, in no acute distress, nondiaphoretic, well-developed well-nourished. SKIN: The skin was without rashes, erythema, edema, or bruising. There is no tenting of the skin. Capillary reflex less than 2 seconds. HEAD: Normocephalic atraumatic. EARS: External auditory canals clear, tympanic membranes pearly rae without erythema or effusion bilaterally. EYES: Pupils equal round and reactive to light and accommodation. Conjunctivae without injection, sclerae without icterus. Extraocular movements intact. NOSE: Patent, turbinates without inflammation or discharge. No sinus tenderness. MOUTH: Mucous membranes moist. Pharynx without erythema or exudate. Uvula midline. Airway patent. Tongue does not deviate. NECK: Supple without nuchal rigidity. No lymphadenopathy. No thyromegaly. Cervical spine is nontender. No JVD. HEART: Tachycardic irregularly irregular LUNGS: Clear to auscultation bilaterally without wheezes, rales or rhonchi. No retractions or accessory muscle use. ABDOMEN: Positive bowel sounds x 4. Normal tympanic percussion. Soft, nontender, without masses or organomegaly. Mancuso sign negative. No guarding or rebound tenderness. No CVA tenderness MUSCULOSKELETAL: No muscle atrophy noted. NEURO: Patient was alert and oriented to person place and time. Normal sensatio n to light and sharp touch. No focal neurological deficits. Course Administered Medications Diltiazem HCl 125 mg/ Dextrose 125 mls @ 5 mls/hr IV .Q24H [facility]; Protocol Stop: 06/15/22 00:29 Last Admin: 05/16/22 00:51 Dose: 5 mg/hr, 5 mls/hr Documented by: [id number] Cosigned by: [id number] Discontinued Medications Diltiazem HCl (Diltiazem Hcl 5 Mg/Ml 5 Ml Vial) Confirm Administered Dose 25 mg IV .[facility]-MED ONE Stop: 05/15/22 22:48 Last Admin: 05/15/22 22:53 Dose: Not Given Documented by: [id number] Diltiazem HCl (Diltiazem Hcl 5 Mg/Ml 5 Ml Vial) 20 mg IV NOW STA Stop: 05/15/22 22:47 Last Admin: 05/15/22 22:53 Dose: 20 mg Documented by: [id number] Cosigned by: [id number] Sodium Chloride (Nss) 500 mls @ 999 mls/hr IV .Q31M ONE Stop: 05/15/22 23:49 Last Infusion: 05/15/22 23:51 Dose: 0 mls/hr Documented by: [id number] Admin: 05/15/22 23:20 Dose: 999 mls/hr Documented by: [id number] Critical Care Time Critical Care Time: Yes Total Critical Care Time: 35 I have personally spent 35 minutes of critical care time in the direct management of this patient. This includes bedside care, interpretation of diagnostic studies, and testing, discussion with consultants, patient, and family members, and other required patient management activities. This 35 minutes is in excess of all separately billable procedures. Medical Decision Making Medical Records Attestation: I reviewed the patient's medical records. Home Medications Current Medication List: was personally reviewed by me Laboratory Data Attestation: I reviewed the patient's lab results. Result diagrams: 05/15/22 22:22 05/15/22 22:22 Lab Results 05/15/22 05/15/22 05/15/22 Range/Units 22:22 22:22 22:22 WBC 10.29 (4.8-10.8) K/uL RBC 4.02 L (4.2-5.4) M/uL Hgb 11.1 L (12.0-16.0) g/dL Hct 34.3 L (37-47) % MCV 85.3 (80-100) fL MCH 27.6 (25-34) pg MCHC 32.4 (32-36) g/dL RDW Std Deviation 47.1 H (36.4-46.3) fL RDW Coeff of Johnny 14.9 H (11.5-14.5) % Plt Count 305 (130-400) K/uL MPV 9.7 (7.4-10.4) fL Immature Gran % (Auto) 0.3 % Neut % (Auto) 58.3 % Lymph % (Auto) 31.8 % Dupage % (Auto) 7.8 % Eos % (Auto) 1.6 % Baso % (Auto) 0.2 % Neut # (Auto) 6.01 (1.4-6.5) K/uL Lymph # (Auto) 3.27 (1.2-3.4) K/uL Dupage # (Auto) 0.80 H (0.11-0.59) K/uL Eos # (Auto) 0.16 (0-0.5) K/uL Baso # (Auto) 0.02 (0-0.2) K/uL Immature Gran # (Auto) 0.03 H (0.00-0.02) K/uL PT Cancelled INR Cancelled APTT Cancelled PTT Ratio Cancelled Sodium 138 (136-145) mmol/L Potassium 3.8 (3.5-5.1) mmol/L Chloride 103 (98-107) mmol/L Carbon Dioxide 27 (21-32) mmol/L Anion Gap 8 (3-11) BUN 21 (6-23) mg/dl Creatinine 0.88 (0.6-1.2) mg/dl Est Cr Clr Drug Dosing 104.8 ml/min Est GFR ( Amer) 82.8 ml/min Est GFR (Non-Af Amer) 71.4 ml/min BUN/Creatinine Ratio 23.9 H (10-20) Glucose 100 H (70-99(Fasting)) mg/dl Calcium 8.5 (8.5-10.1) mg/dl Magnesium (1.7-2.4) mg/dl Total Bilirubin 0.5 (0.2-1.0) mg/dl AST 11 L (13-39) U/L ALT 8 (7-52) U/L Alkaline Phosphatase 66 (34-104) U/L Troponin I High Sens 7.1 (0-14) pg/ml Total Protein 7.0 (6.0-8.3) gm/dl Albumin 3.9 (3.4-5.0) gm/dl Globulin 3.1 (2.5-4.0) gm/dl Albumin/Globulin Ratio 1.3 (0.9-2) SARS-CoV-2, RNA, NAAT (NEGATIVE) Group A Strep (PCR) (NotDetected) 05/15/22 05/15/22 05/15/22 Range/Units 22:22 22:55 22:55 WBC (4.8-10.8) K/uL RBC (4.2-5.4) M/uL Hgb (12.0-16.0) g/dL Hct (37-47) % MCV (80-100) fL MCH (25-34) pg MCHC (32-36) g/dL RDW Std Deviation (36.4-46.3) fL RDW Coeff of Johnny (11.5-14.5) % Plt Count (130-400) K/uL MPV (7.4-10.4) fL Immature Gran % (Auto) % Neut % (Auto) % Lymph % (Auto) % Dupage % (Auto) % Eos % (Auto) % Baso % (Auto) % Neut # (Auto) (1.4-6.5) K/uL Lymph # (Auto) (1.2-3.4) K/uL Dupage # (Auto) (0.11-0.59) K/uL Eos # (Auto) (0-0.5) K/uL Baso # (Auto) (0-0.2) K/uL Immature Gran # (Auto) (0.00-0.02) K/uL PT INR APTT PTT Ratio Sodium (136-145) mmol/L Potassium (3.5-5.1) mmol/L Chloride (98-107) mmol/L Carbon Dioxide (21-32) mmol/L Anion Gap (3-11) BUN (6-23) mg/dl Creatinine (0.6-1.2) mg/dl Est Cr Clr Drug Dosing ml/min Est GFR ( Amer) ml/min Est GFR (Non-Af Amer) ml/min BUN/Creatinine Ratio (10-20) Glucose (70-99(Fasting)) mg/dl Calcium (8.5-10.1) mg/dl Magnesium 2.1 (1.7-2.4) mg/dl Total Bilirubin (0.2-1.0) mg/dl AST (13-39) U/L ALT (7-52) U/L Alkaline Phosphatase (34-104) U/L Troponin I High Sens (0-14) pg/ml Total Protein (6.0-8.3) gm/dl Albumin (3.4-5.0) gm/dl Globulin (2.5-4.0) gm/dl Albumin/Globulin Ratio (0.9-2) SARS-CoV-2, RNA, NAAT NEGATIVE (NEGATIVE) Group A Strep (PCR) NOT DETECTED (NotDetected) 05/16/22 Range/Units 00:55 WBC (4.8-10.8) K/uL RBC (4.2-5.4) M/uL Hgb (12.0-16.0) g/dL Hct (37-47) % MCV (80-100) fL MCH (25-34) pg MCHC (32-36) g/dL RDW Std Deviation (36.4-46.3) fL RDW Coeff of Johnny (11.5-14.5) % Plt Count (130-400) K/uL MPV (7.4-10.4) fL Immature Gran % (Auto) % Neut % (Auto) % Lymph % (Auto) % Dupage % (Auto) % Eos % (Auto) % Baso % (Auto) % Neut # (Auto) (1.4-6.5) K/uL Lymph # (Auto) (1.2-3.4) K/uL Dupage # (Auto) (0.11-0.59) K/uL Eos # (Auto) (0-0.5) K/uL Baso # (Auto) (0-0.2) K/uL Immature Gran # (Auto) (0.00-0.02) K/uL PT INR APTT PTT Ratio Sodium (136-145) mmol/L Potassium (3.5-5.1) mmol/L Chloride (98-107) mmol/L Carbon Dioxide (21-32) mmol/L Anion Gap (3-11) BUN (6-23) mg/dl Creatinine (0.6-1.2) mg/dl Est Cr Clr Drug Dosing ml/min Est GFR ( Amer) ml/min Est GFR (Non-Af Amer) ml/min BUN/Creatinine Ratio (10-20) Glucose (70-99(Fasting)) mg/dl Calcium (8.5-10.1) mg/dl Magnesium (1.7-2.4) mg/dl Total Bilirubin (0.2-1.0) mg/dl AST (13-39) U/L ALT (7-52) U/L Alkaline Phosphatase (34-104) U/L Troponin I High Sens 13.4 D (0-14) pg/ml Total Protein (6.0-8.3) gm/dl Albumin (3.4-5.0) gm/dl Globulin (2.5-4.0) gm/dl Albumin/Globulin Ratio (0.9-2) SARS-CoV-2, RNA, NAAT (NEGATIVE) Group A Strep (PCR) (NotDetected) Imaging Data Attestation: I personally reviewed and interpreted this imaging study as follows: MDM Narrative Prior records/ancillary studies reviewed. Triage Nursing notes reviewed. Additional history obtained from family. The patient's history was concerning for tachycardia and chest pain. Differential diagnosis: Etiologies such as A. fib, dysrhythmia, cardiac ischemia, aortic dissection, pulmonary embolism, pneumonia, pneumothorax, musculoskeletal, infections, pericarditis, myocarditis, esophageal rupture, gastrointestinal, as well as others were entertained. Physical examination: As above. ER treatment provided: An order was placed for continuous cardiac monitoring. The monitor shows a rate of 60-200 with a A. fib rhythm. Cardizem IV fluids Cardizem drip On reassessment the patient felt better. Diagnostic interpretation by me: The electrocardiogram was ordered for tachycardia and chest pain EKG: Irregularly irregular with minimal ST depressions in the lateral leads occasional PVC with rate of 143. Impression A. fib with RVR with occasional PVC with ST depressions in lateral leads interpreted by myself The labs revealed negative troponin and repeat was ordered Euthyroid Imaging studies: Chest x-ray with no acute consolidation, pneumothorax or free air per my interpretation HEART SCORE: Hx: high/mod/low suspicion: 1 ECG: ST depression/nonspecific changes/normal: 1 Age: Greater than 65/45-64/less than 45: 1 Risk factors: (Hypertension, hyperlipidemia, diabetes, coronary disease, tobacco use, cocaine use): 2 Troponin: Greater than 2 times normal limits/1-2 times normal limits/normal: 0 Total: 5 Consultation: A consultation was placed with the hospitalist. The case was discussed and diagnostics were reviewed. The patient was evaluated in the ER for further treatment. Exam and history seem consistent with A. fib with RVR. Patient started on Cardizem. Her heart rate did drop to the 80s but then tracked back up. Drip was ordered. Medicine is consulted. She will be admitted. By the evaluation outlined above emergent etiologies such as aortic dissection, pulmonary embolism, pneumonia, pneumothorax, pericarditis, myocarditis, gastrointestinal, as well as others were deemed relatively unlikely. The pt informed about the findings as listed above. All questions were answered and pleased with the treatment. The chart was completed utilizing [employer] Speech voice recognition software. Grammatical errors, random word insertions, pronoun errors, and incomplete sentences are an occassional consequence of this system due to software limitations, ambient noise, and hardware issues. Any formal questions or concerns about the content, text, or information contained within the body of this dictation should be directly addressed to the physician sales assistant entertainment and media for clarification. Impression & Plan Atrial fibrillation with rapid ventricular response, Chest pain Discharge Plan Visit Data Chief Complaint: Tachycardia Stated Complaint: FAST HEARTBEAT, SOB ED Provider: Dinah Ortiz ED Midlevel Provider: Asya Haji Discharge Problem: Atrial fibrillation with rapid ventricular response, Chest pain Patient Disposition: Admitted As Inpatient Condition: Good Forms Stand Alone Forms: [email or web address] Prescriptions Prescriptions: No Action atorvastatin 20 mg Tablet 20 mg PO DAILY RF: 0 levothyroxine [Euthyrox] 100 mcg tablet 100 mcg PO DAILY RF: 0 Eliquis 5 mg Tablet 5 mg PO BID Qty: 60 RF: 0 carvedilol 6.25 mg tablet 6.25 mg PO BID RF: 0 alendronate 70 mg tablet 70 mg PO WK RF: 0 sulfamethoxazole-trimethoprim [Bactrim DS] 800-160 mg Tablet 1 tab PO BID RF: 0 acetaminophen [Tylenol Arthritis] 650 mg Tablet Extended Release 1,300 mg PO Q8H PRN (Reason: Pain) RF: 0 Referrals Referrals: Rik Alan, [Primary Care Provider] -
[2022-05-16] MEDS ORDERED: dilTIAZem HCL 125 MG in DEXTROSE 5% 100 ML IV SCH (00:30)
--- NOTE | 2022-05-16 00:37 | Emergency Department Note ---
ED Visit Note I agree with the diagnosis and management decisions and have been personally involved in the case. Patient received IV Cardizem for rapid atrial fib rillation with better rate control. Patient did require Cardizem drip for continued atrial fib with RVR. Please see Analilia Haji PA-C's notes for further details of the history, physical and visit. .
[2022-05-16] MEDS ORDERED: POLYETHYLENE (MIRALAX) 17 GM PACK PO PRN (03:04)
[2022-05-16] MEDS ORDERED: NITROGLYCERIN SL 0.4 MG/TAB TAB SL PRN (03:04)
[2022-05-16] MEDS: cefTRIAXone SODIUM 2,000 MG in DEXTROSE 5% 50 ML IV SCH (04:08)
[2022-05-16 05:46] LABS: Basophils # (auto) 0.01 K/uL (0-0.2); Basophils % (auto) 0.1 %; Eosinophils # (auto) 0.09 K/uL (0-0.5); Eosinophils % (auto) 0.9 %; Hematocrit (blood only) 33.6 % (37-47); Hemoglobin 10.6 g/dL (12.0-16.0); Immature Granulocytes # (auto) 0.04 K/uL (0.00-0.02); Immature Granulocytes % (auto) 0.4 %; Lymphocytes # (auto) 3.55 K/uL (1.2-3.4); Lymphocytes % (auto) 36.9 %; Mean Corpuscular Hemoglobin 26.4 pg (25-34); Mean Corpuscular Hgb Conc 31.5 g/dL (32-36); Mean Corpuscular Volume 83.8 fL (80-100); Mean Platelet Volume 9.6 fL (7.4-10.4); Monocytes # (auto) 0.75 K/uL (0.11-0.59); Monocytes % (auto) 7.8 %; Neutrophils # (auto) 5.19 K/uL (1.4-6.5); Neutrophils % (auto) 53.9 %; Platelet Count 298 K/uL (130-400); RDW Standard Deviation 46.5 fL (36.4-46.3); Red Blood Count 4.01 M/uL (4.2-5.4); White Blood Count 9.63 K/uL (4.8-10.8)
[2022-05-16] MEDS: LEVOTHYROXINE SODIUM 100 MCG TABLET PO SCH (05:48)
[2022-05-16 05:55] LABS: Partial Thromboplastin Time 27.3 Seconds (21.0-31.0); Prothrombin Time 11.1 Seconds (9.0-12.0)
[2022-05-16 06:03] LABS: BUN Creatinine Ratio 26.6 (10-20); Calcium 8.1 mg/dl (8.5-10.1); Creatinine Clr Calc Pharmacy 117.9 ml/min; Est GFR (African American) 94.3 ml/min; Est GFR (Non-African American) 81.4 ml/min; Magnesium 2.1 mg/dl (1.7-2.4); Potassium 3.7 mmol/L (3.5-5.1)
[2022-05-16 06:09] LABS: Troponin I High Sensitivity 20.7 pg/ml (0-14)
--- NOTE | 2022-05-16 07:23 | XRay Report ---
XR chest 1V portable CLINICAL HISTORY: Chest Pain. COMPARISON STUDY: 10/22/2021 TECHNIQUE: 1 view of the chest FINDINGS: Single frontal view of the chest demonstrates the heart to again be enlarged. The lungs are clear of alveolar opacities. There is no evidence for pleural effusion. There is no evidence for vascular arely estion. There is no acute osseous pathology. IMPRESSION: 1. No acute cardiopulmonary disease. ACT 112: Negative or not required by law. Electronically signed by: Ravi Adame M.D. 05/16/2022 7:21 AM
[2022-05-16] MEDS: hydroCHLOROthiazide 25 MG TAB PO SCH (07:44)
[2022-05-16] MEDS: LOSARTAN POTASSIUM 50 MG TAB PO SCH (07:44)
[2022-05-16] MEDS: APIXABAN 5 MG TABLET PO SCH ×2 (07:45→20:13)
[2022-05-16] MEDS: ATORVASTATIN 20 MG TAB PO SCH (07:45)
--- NOTE | 2022-05-16 07:55 | History and Physical Report ---
DATE OF ADMISSION: 05/16/2022. CHIEF COMPLAINT: Rapid AFib. HISTORY OF PRESENT ILLNESS: A 61-year-old female with past medical history significant for hyperlipidemia, hypothyroidism, AFib, hypertension, morbid obesity, female infertility, senile osteoporosis, neuropathy, depression, who presents with rapid atrial fibrillation. The patient says when she was trying to sleep, she felt chest discomfort, palpitations, and shortness of breath.In ER found to be in rapid AFib, started on Cardizem drip. Currently resting comfortably, hemodynamically stable. Currently asymptomatic. Denies any headache, felt dizzy . No blurred vision, no earache, no runny nose. She always has some cough. She recently has some sore throat and earache and she was started on Bactrim, she took first dose tonight. No nausea, no abdominal pain. Normal bowel and bladder movements. She has chronic swelling of the lower extremities. Ambulates with a cane. ALLERGIES: LISINOPRIL, ZOCOR. PAST MEDICAL HISTORY: As mentioned above. PAST SURGICAL HISTORY: Cystoscopy, repair of hip fractures and fixation, bilateral. MEDICATIONS: The patient is on Tylenol Arthritis p.o. q. 8 hours p.r.n., alendronate 70 mg p.o. weekly, Eliquis 5 mg p.o. b.i.d., atorvastatin 20 mg p.o. daily, Coreg 6.25 mg p.o. b.i.d., hydrochlorothiazide 25 mg p.o. daily, levothyroxine 100 mcg p.o. daily, losartan 50 mg daily, Bactrim Double Strength one tablet p.o. b.i.d. FAMILY HISTORY: Significant for mother has cervical cancer; father has diabetes, hypertension; mother has stroke. SOCIAL HISTORY: . No smoking. Alcohol rare. No drug use. REVIEW OF SYSTEMS: As per HPI. Rest of the review of systems is negative. PHYSICAL EXAMINATION: GENERAL: The patient is morbidly obese, not in acute distress. VITAL SIGNS: Temperature 36.5, pulse 108, respiratory rate 20, blood pressure 131/74, oxygen 97% on room air. HEENT: Pupils equal, round and reactive to light. Oral mucosa moist. LUNGS: No JVD, no neck masses. CARDIOVASCULAR: S1 and S2 heard. irregular rhythm, tachycardia. No murmurs. RESPIRATORY SYSTEM: Normal AP diameter. No accessory muscle use. No wheezing, no crackles. ABDOMEN: Soft. Bowel sounds are present, nontender, no distention. CENTRAL NERVOUS SYSTEM: Cranial nerves II-XII grossly intact, nonfocal. EXTREMITIES: Bilateral lower extremity, +2 pedal edema present, no erythema seen. LABORATORY DATA: WBC 10.9, hemoglobin 11.1, hematocrit 34.3, platelets 305. Sodium 138, potassium 3.8, chloride 103, bicarbonate 27, BUN 21, creatinine 0.8, serum glucose 100, calcium 8.5, magnesium 2.1, total bilirubin 0.5, AST 11, ALT 8, alkaline phosphatase 66. Troponin I high sensitivity 13.4. TSH pending. SARS-CoV-2 rapid test negative. Group A PCR not detected. IMAGING DATA: Chest x-ray, no acute findings. EKG: Rapid AFib with rate of 143, no acute ST changes seen. ASSESSMENT AND PLAN: This is a 61-year-old female who presents with rapid atrial fibrillation. 1. Rapid atrial fibrillation: Chest discomfort and shortness of breath most likely from rapid fibrillation. Started on Cardizem drip, which will be continued. Continue her home Coreg. The patient is on Eliquis. Initial troponin negative. Follow serial cardiac enzymes. Repeat EKG in the a.m., echocardiogram. Consult cardiology in the a.m. for further recommendations. 2. History of hypertension: Continue home Coreg, hydrochlorothiazide, losartan. Will monitor blood pressure while the patient is on Cardizem drip. 3. History of otitis media: The patient was recently prescribed Bactrim, which she took one dose. While the patient is in the hospital, will place her on Rocephin. 4. History of hyperlipidemia: Continue statin. 5. Morbid obesity: Needs counseling. 6. Hypothyroidism: On Synthroid. 7. Deep venous thrombosis prophylaxis: On Eliquis. DISPOSITION: Admit to tele floor. Expect to discharge home and follow with family doctor. Job ID: [id number] [facility]
[2022-05-16] MEDS ORDERED: POTASSIUM CHLORIDE CRTAB 20 MEQ TABCR PO ONE (08:17)
[2022-05-16] MEDS ORDERED: carvediloL 6.25 MG TAB PO SCH (09:00)
--- NOTE | 2022-05-16 10:33 | Electrocardiogram Report ---
Test Reason : Blood Pressure : / mmHG Vent. Rate : 143 BPM Atrial Rate : 105 BPM P-R Int : 000 ms QRS Dur : 088 ms QT Int : 300 ms P-R-T Axes : 000 009 248 degrees QTc Int : 463 ms Poor data quality, interpretation may be adversely affected Atrial fibrillation with rapid ventricular response with premature ventricular or aberrantly conducte d complexes Abnormal ECG When compared with ECG of 22-OCT-2021 20:57, No significant change was found Confirmed by Goyo Schwartz ([id number]) on 05/16/2022 10:32:36 AM Referred By: REFERRED SELF Confirmed By:Goyo Schwartz
[2022-05-16] MEDS ORDERED: CHLORASEPTIC 1.4% SOLN 180 ML BTL MT PRN (10:35)
--- NOTE | 2022-05-16 10:41 | Electrocardiogram Report ---
Test Reason : Blood Pressure : / mmHG Vent. Rate : 088 BPM Atrial Rate : 120 BPM P-R Int : 000 ms QRS Dur : 076 ms QT Int : 346 ms P-R-T Axes : 000 000 000 degrees QTc Int : 418 ms Poor data quality, interpretation may be adversely affected Atrial fibrillation with premature ventricular or aberrantly conducted complexes Voltage criteria for left ventricular hypertrophy Abnormal ECG When compared with ECG of 15-MAY-2022 22:22, (unconfirmed) Vent. rate has decreased BY [address] depression has resolved T wave inversion no longer evident in Lateral leads Confirmed by Goyo Schwartz ([id number]) on 05/16/2022 10:41:34 AM Referred By: REFERRED SELF Confirmed By:Goyo Schwartz
--- NOTE | 2022-05-16 14:35 | Cardiology Consultation ---
Date of Consultation May 16, 2022 Assessment & Plan (1) Atrial fibrillation with rapid ventricular response: (2) Chest pain: (3) Hypertension: (4) Tachycardia-bradycardia syndrome: The pathophysiology, treatment options were discussed with the patient and her at great lengths. Given the fact that this is now recurrent atrial fibrillation I believe the patient would benefit from antiarrhythmic therapy. Likely she has been anticoagulated for a month without interruption so at this time I will initiate sotalol 80 mg p.o. twice daily. She will then be monitored on telemetry and DC cardioversion may be considered should she not lapsed back into normal sinus on her own. Follow and replete electrolytes Daily EKGs and continuous telemetry monitoring during 72-hour sotalol load Obviously Eliquis will be continued uninterrupted. History of Present Illness Reason for Consultation: afib with rvr Requesting Physician: Dr. Sullivan Attending Physician: Stef Lugo MD History of Present Illness It was my pleasure to see Mrs. Cox in cardiac consultation today May 16, 2022. She is a 61-year-old woman who routinely follows with Dr. Corley and Angela of our cardiology practice for history of paroxysmal atrial fibrillation. She states that she awoke this morning and felt her self lapsed back into atrial fibrillation which she has experienced in the past. She states that she felt weak, short of breath and her heart racing in her chest. Upon presentation emergency department it was confirmed that she was in atrial fibrillation. She states that she been compliant with her medications as an outpatient. She has not missed any doses of her Eliquis since restarting on April 18 after being held for dental extraction by the patient. Past medical history: 1. Paroxysmal atrial fibrillation, [id number] score of 2, on Eliquis a. Negative nuclear stress 12/31/2021 2. Tachy-brennan syndrome, asymptomatic requiring pacemaker at this juncture 3. Hypertension 4. Dyslipidemia 5. ? CARINE 6. Obesity 7. Medication noncompliance Allergies Allergy/AdvReac Type Severity Reaction Status Date / Time lisinopril Allergy Intermediate RASH Verified 05/15/22 23:12 simvastatin Allergy Unknown UNKNOWN Verified 05/15/22 23:12 baby oil Allergy Intermediate Rash Uncoded 05/15/22 23:12 Home Medications Medication Instructions Recorded Confirmed Type apixaban 5 mg tablet (Eliquis) 5 mg PO BID #60 tab 10/23/21 05/15/22 Rx atorvastatin 20 mg tablet 20 mg PO DAILY 10/23/21 05/15/22 History levothyroxine 100 mcg tablet 100 mcg PO DAILY 10/23/21 05/15/22 History (Euthyrox) acetaminophen 650 mg 1,300 mg PO Q8H PRN 05/15/22 05/15/22 History tablet,extended release alendronate 70 mg tablet 70 mg PO WK 05/15/22 05/15/22 History carvedilol 6.25 mg tablet 6.25 mg PO BID 05/15/22 05/15/22 History sulfamethoxazole 800 1 tab PO BID 05/15/22 05/15/22 History mg-trimethoprim 160 mg tablet (Bactrim DS) hydrochlorothiazide 25 mg tablet 25 mg PO DAILY 05/16/22 05/16/22 History losartan 50 mg PO DAILY 05/16/22 05/16/22 History Patient History Medical History Hypertension Surgical History No pertinent past surgical history Social History Smoking Status: Never smoker Second Hand Exposure: No; Do You Dip or Chew Tobacco: No; Tobacco Cessation Education Requested by Patient: No Hx Alcohol Use: No Hx Substance Use: No Preferred Language: Wolof Communication Ability: Effective I&C Technician Required: No Beliefs That Will Affect Care: None Current Living Situation: Significant Other Current Living Situation Comment: Home with Ann Marie How many Children do You have: 0 Feels Safe at Home: Yes Safety Concerns: Feels Safe At This Time Assistive Devices: Cane and Walker Review of Systems Review of Systems: All systems reviewed & are unremarkable except as noted in HPI & below Physical Exam Physical Exam: General: Awake, alert and oriented x 3. No acute distress. HEENT: Normocephalic, atraumatic. Pupils equal, round and reactive to light and accommodation. Extraocular muscles are intact. Anicteric sclera. Moist mucous membranes. Neck: No JVD. No bruit. Cardiovascular: irregularly irregular, unable to appreciate murmur, rub or gallop. Pulmonary: Clear to auscultation bilaterally. No rales, rhonchi, or wheezing. Abdomen: Bowel sounds x 4, soft. No rebound, guarding or tenderness. No organomegaly. Extremities: No clubbing, cyanosis or edema. +2 pedal pulses bilaterally. Skin: Warm and dry. Results & Data ([facility]) Vital Signs (Past 12 Hours) Vital Signs Temp Pulse Pulse Resp BP Pulse Ox 05/16/22 08:00 92 H 05/16/22 06:46 36.6 C 17 95 05/16/22 06:33 95 H 119/76 05/16/22 06:06 90 138/67 05/16/22 05:28 90 134/69 05/16/22 04:56 106 H 145/69 H 05/16/22 04:42 101 H 127/74 05/16/22 04:17 106 H 143/79 H 05/16/22 03:43 103 H 157/97 H 05/16/22 03:06 36.9 C 115 H 20 135/109 H 95
--- NOTE | 2022-05-16 16:46 | Hospitalist Progress Note ---
Date of Service May 16, 2022 Assessment & Plan (1) Tachycardia-bradycardia syndrome: Plan: Patient is a 61 yr old female who presents with rapid atrial fibrillation Atrial fibrillation with rapid ventricular response Tachybradycardia syndrome Normal TSH ECHO: No significant change from prior echo. EF 65 to 70%. No segmental left ventricular wall motion abnormality. Aortic valve sclerosis moderate, without significant aortic valvular stenosis. IV Cardizem discontinued Started on sotalol 80 mg twice a day Daily EKGs to monitor for QTC Appreciate cardiology input May need DC cardioversion Continue Eliquis for anticoagulation Monitor and replace electrolytes as needed Hypertension: Continue losartan, HCTZ Carvedilol on hold Also on sotalol Otitis media: Continue Rocephin Hyperlipidemia: Continue statin Morbid obesity: BMI 62 Needs counseling. Hypothyroidism: Continue Levothyroxine DVT Px: SCDs Admission and Anticipated Discharge Date Admission Date: May 16, 2022 Subjective Patient is seen and examined at bedside States having sore throat, back pain Palpitation, dyspnea resolved Denies any chest pain, nausea, vomiting, abdominal pain, diarrhea Offers no other complaints Review of Systems Review of Systems: All systems reviewed & are unremarkable except as noted in Subjective Physical Exam Physical Exam: Physical Exam: Vitals signs as noted above General Appearance:Morbidly Obese, no apparent distress Head: normocephalic, Atraumatic Eyes: normal inspection, EOMI Neck: supple, Trachea midline Respiratory/Chest: Normal breath sounds, CTA, No accessory muscle use Cardiovascular: Irregular, irregular, No murmur Abdomen/GI:Soft, Non tender, Bowel sounds present Extremities/Musculoskeletal:normal inspection, + edema Neurologic/Psych:AAOX3, grossly no focal neurological deficits Skin: normal color, warm Results & Data Results & Data ([facility]) Vital Signs (Past 12 Hours) Vital Signs Temp Pulse Pulse Pulse Resp BP Pulse Ox 05/16/22 15:47 93 H 05/16/22 15:25 36.5 C 87 18 146/66 H 97 05/16/22 08:00 92 H 05/16/22 06:46 36.6 C 17 95 05/16/22 06:33 95 H 119/76 05/16/22 06:06 90 138/67 05/16/22 05:28 90 134/69 05/16/22 04:56 106 H 145/69 H 05/16/22 04:42 101 H 127/74 Laboratory Results Short CBC 05/15/22 05/16/22 Range/Units 22:22 05:21 WBC 10.29 9.63 (4.8-10.8) K/uL Hgb 11.1 L 10.6 L (12.0-16.0) g/dL Hct 34.3 L 33.6 L (37-47) % Plt Count 305 298 (130-400) K/uL BMP 05/15/22 05/16/22 22:22 05:21 Sodium 138 136 Potassium 3.8 3.7 Chloride 103 103 Carbon Dioxide 27 26 BUN 21 21 Creatinine 0.88 0.79 Glucose 100 H 106 H Calcium 8.5 8.1 L Liver Function 05/15/22 Range/Units 22:22 Total Bilirubin 0.5 (0.2-1.0) mg/dl AST 11 L (13-39) U/L ALT 8 (7-52) U/L Alkaline Phosphatase 66 (34-104) U/L Albumin 3.9 (3.4-5.0) gm/dl
[2022-05-16] MEDS: SOTALOL HCL 80 MG TAB PO SCH (17:35)
[2022-05-17] MEDS: cefTRIAXone SODIUM 2,000 MG in DEXTROSE 5% 50 ML IV SCH (04:21)
[2022-05-17] MEDS: LEVOTHYROXINE SODIUM 100 MCG TABLET PO SCH (06:17)
[2022-05-17 07:23] LABS: Hematocrit (blood only) 32.6 % (37-47); Hemoglobin 10.3 g/dL (12.0-16.0); Mean Corpuscular Hemoglobin 26.4 pg (25-34); Mean Corpuscular Hgb Conc 31.6 g/dL (32-36); Mean Corpuscular Volume 83.6 fL (80-100); Mean Platelet Volume 9.6 fL (7.4-10.4); Platelet Count 304 K/uL (130-400); RDW Coefficient of Variation 15.3 % (11.5-14.5); RDW Standard Deviation 46.8 fL (36.4-46.3); White Blood Count 8.33 K/uL (4.8-10.8)
[2022-05-17 07:53] LABS: BUN Creatinine Ratio 28.8 (10-20); Calcium 8.5 mg/dl (8.5-10.1); Creatinine Clr Calc Pharmacy 116.4 ml/min; Est GFR (African American) 92.9 ml/min; Est GFR (Non-African American) 80.1 ml/min; Magnesium 2.1 mg/dl (1.7-2.4); Potassium 3.9 mmol/L (3.5-5.1)
[2022-05-17] MEDS: APIXABAN 5 MG TABLET PO SCH ×2 (08:19→20:24)
[2022-05-17] MEDS: LOSARTAN POTASSIUM 50 MG TAB PO SCH (08:20)
[2022-05-17] MEDS: hydroCHLOROthiazide 25 MG TAB PO SCH (08:20)
[2022-05-17] MEDS: SOTALOL HCL 80 MG TAB PO SCH ×2 (08:20→17:53)
[2022-05-17] MEDS: ATORVASTATIN 20 MG TAB PO SCH (08:20)
--- NOTE | 2022-05-17 09:14 | Cardiology Progress Note ---
Date of Service May 17, 2022 Assessment & Plan (1) Atrial fibrillation with rapid ventricular response: (2) Chest pain: (3) Hypertension: (4) Tachycardia-bradycardia syndrome: Plan: The pathophysiology, treatment options were discussed with the patient and her at great lengths. Given the fact that this is now recurrent atrial fibrillation I believe the patient would benefit from antiarrhythmic therapy. Likely she has been anticoagulated for a month without interruption so at this time I will initiate sotalol 80 mg p.o. twice daily. She will then be monitored on telemetry and DC cardioversion may be considered should she not lapsed back into normal sinus on her own. spontaneously converted to sinus after intitial dose of sotalol cont eliquis cont 72 hour monitoring on tele daily ekg follow and replete lytes Admission and Anticipated Discharge Date Admission Date: May 16, 2022 Subjective Pt seen and examined, chart reviewed. No further cardiac complaints. Chest discomfort resolved. tele reviewed: spontaneously converted to sinus rhythm last PM. no arrhythmias Review of Systems Review of Systems: All systems reviewed & are unremarkable except as noted in HPI & below Physical Exam Physical Exam: General: Awake, alert and oriented x 3. No acute distress. HEENT: Normocephalic, atraumatic. Pupils equal, round and reactive to light and accommodation. Extraocular muscles are intact. Anicteric sclera. Moist mucous membranes. Neck: No JVD. No bruit. Cardiovascular: Regular. Positive S-4. Normal S-1 and S-2. No S-3. 3/6 mid to late systolic ejection murmur, greatest at the right sternal border, second intercostal space with radiation to the bilateral carotids. No rubs. Pulmonary: Clear to auscultation bilaterally. No rales, rhonchi, or wheezing. Abdomen: Bowel sounds x 4, soft. No rebound, guarding or tenderness. No organomegaly. Extremities: No clubbing, cyanosis or edema. +2 pedal pulses bilaterally. Skin: Warm and dry. Results & Data ([facility]) Vital Signs (Past 12 Hours) Vital Signs Temp Pulse Pulse Pulse Resp BP Pulse Ox 05/17/22 07:30 59 L 05/17/22 06:57 36.6 C 62 21 145/64 H 95 05/17/22 03:41 36.8 C 63 16 120/90 96 05/16/22 23:29 36.7 C 61 16 127/68 96
[2022-05-17] MEDS: ACETAMINOPHEN 325 MG TAB PO PRN (10:14)
--- NOTE | 2022-05-17 10:29 | Electrocardiogram Report ---
Test Reason : Blood Pressure : / mmHG Vent. Rate : 059 BPM Atrial Rate : 059 BPM P-R Int : 178 ms QRS Dur : 084 ms QT Int : 438 ms P-R-T Axes : 020 002 000 degrees QTc Int : 433 ms Sinus bradycardia Otherwise normal ECG When compared with ECG of 16-MAY-2022 05:37, Sinus rhythm has replaced Atrial fibrillation Vent. rate has decreased BY 29 BPM Confirmed by Goyo Schwartz ([id number]) on 05/17/2022 10:29:33 AM Referred By: REFERRED SELF Confirmed By:Goyo Schwartz
--- NOTE | 2022-05-17 15:22 | Hospitalist Progress Note ---
Date of Service May 17, 2022 Assessment & Plan (1) Tachycardia-bradycardia syndrome: Plan: Patient is a 61 yr old female who presents with rapid atrial fibrillation Atrial fibrillation with rapid ventricular response Tachybradycardia syndrome Normal TSH ECHO: No significant change from prior echo. EF 65 to 70%. No segmental left ventricular wall motion abnormality. Aortic valve sclerosis moderate, without significant aortic valvular stenosis. On IV Cardizem Continue sotalol 80 mg twice a day Daily EKGs to monitor for QTC Appreciate cardiology input Continue Eliquis for anticoagulation Monitor and replace electrolytes as needed Converted to sinus Hypertension: Continue losartan, HCTZ Carvedilol on hold Also on sotalol Otitis media: Continue Rocephin Hyperlipidemia: Continue statin Morbid obesity: BMI 62 Needs counseling. Hypothyroidism: Continue Levothyroxine DVT Px: SCDs Admission and Anticipated Discharge Date Admission Date: May 16, 2022 Subjective Patient is seen and examined at bedside Spontaneously converted to sinus States having minimal cough Sore throat better Denies any chest pain, dyspnea, nausea, vomiting, abdominal pain, diarrhea Review of Systems Review of Systems: All systems reviewed & are unremarkable except as noted in Subjective Physical Exam Physical Exam: Physical Exam: Vitals signs as noted above General Appearance:Morbidly Obese, no apparent distress Head: normocephalic, Atraumatic Eyes: normal inspection, EOMI Neck: supple, Trachea midline Respiratory/Chest: Normal breath sounds, CTA, No accessory muscle use Cardiovascular: S1, S2, No murmur Abdomen/GI:Soft, Non tender, Bowel sounds present Extremities/Musculoskeletal:normal inspection, + edema Neurologic/Psych:AAOX3, grossly no focal neurological deficits Skin: normal color, warm Results & Data Results & Data ([facility]) Vital Signs (Past 12 Hours) Vital Signs Temp Pulse Pulse Pulse Resp BP Pulse Ox 05/17/22 15:04 60 05/17/22 11:38 36.7 C 58 L 20 147/66 H 97 05/17/22 07:30 59 L 05/17/22 06:57 36.6 C 62 21 145/64 H 95 05/17/22 03:41 36.8 C 63 16 120/90 96 Laboratory Results Short CBC 05/17/22 Range/Units 06:43 WBC 8.33 (4.8-10.8) K/uL Hgb 10.3 L (12.0-16.0) g/dL Hct 32.6 L (37-47) % Plt Count 304 (130-400) K/uL BMP 05/17/22 06:43 Sodium 135 L Potassium 3.9 Chloride 102 Carbon Dioxide 27 BUN 23 Creatinine 0.80 Glucose 102 H Calcium 8.5
[2022-05-18] MEDS: cefTRIAXone SODIUM 2,000 MG in DEXTROSE 5% 50 ML IV SCH (04:20)
[2022-05-18] MEDS: LEVOTHYROXINE SODIUM 100 MCG TABLET PO SCH (06:09)
[2022-05-18 06:56] LABS: BUN Creatinine Ratio 30.9 (10-20); Calcium 8.4 mg/dl (8.5-10.1); Creatinine Clr Calc Pharmacy 113.6 ml/min; Est GFR (African American) 91.5 ml/min; Est GFR (Non-African American) 78.9 ml/min; Magnesium 2.1 mg/dl (1.7-2.4); Potassium 3.9 mmol/L (3.5-5.1)
[2022-05-18] MEDS: ATORVASTATIN 20 MG TAB PO SCH (09:10)
[2022-05-18] MEDS: LOSARTAN POTASSIUM 50 MG TAB PO SCH (09:10)
[2022-05-18] MEDS: APIXABAN 5 MG TABLET PO SCH ×2 (09:10→20:57)
[2022-05-18] MEDS: hydroCHLOROthiazide 25 MG TAB PO SCH (09:10)
[2022-05-18] MEDS: SOTALOL HCL 80 MG TAB PO SCH ×2 (09:11→16:55)
--- NOTE | 2022-05-18 14:13 | Electrocardiogram Report ---
Test Reason : Blood Pressure : / mmHG Vent. Rate : 051 BPM Atrial Rate : 051 BPM P-R Int : 182 ms QRS Dur : 096 ms QT Int : 506 ms P-R-T Axes : 044 015 017 degrees QTc Int : 466 ms Sinus bradycardia Otherwise normal ECG When compared with ECG of 17-MAY-2022 06:20, No significant change was found Confirmed by Adrien Moody ([id number] on 05/18/2022 2:13:17 PM Referred By: REFERRED SELF Confirmed By:Adrien Moody
--- NOTE | 2022-05-18 15:15 | Cardiology Progress Note ---
Date of Service May 18, 2022 Assessment & Plan (1) Atrial fibrillation with rapid ventricular response: (2) Chest pain: (3) Hypertension: (4) Tachycardia-bradycardia syndrome: Plan: The pathophysiology, treatment options were discussed with the patient and her at great lengths. Given the fact that this is now recurrent atrial fibrillation I believe the patient would benefit from antiarrhythmic therapy. Likely she has been anticoagulated for a month without interruption so at this time I will initiate sotalol 80 mg p.o. twice daily. She will then be monitored on telemetry and DC cardioversion may be considered should she not lapsed back into normal sinus on her own. spontaneously converted to sinus after intitial dose of sotalol, 6th dose will be be tomorrow morning qtc stable at 466 ms cont eliquis cont 72 hour monitoring on tele daily ekg follow and replete lytes HR in 50's will decrease coreg and increase losartan Admission and Anticipated Discharge Date Admission Date: May 16, 2022 Subjective Pt seen and examined, chart reviewed. No further cardiac complaints. Chest discomfort resolved. tele reviewed: spontaneously converted to sinus rhythm last PM. no arrhythmias Review of Systems Review of Systems: All systems reviewed & are unremarkable except as noted in HPI & below Physical Exam Physical Exam: General: Awake, alert and oriented x 3. No acute distress. HEENT: Normocephalic, atraumatic. Pupils equal, round and reactive to light and accommodation. Extraocular muscles are intact. Anicteric sclera. Moist mucous membranes. Neck: No JVD. No bruit. Cardiovascular: Regular. Positive S-4. Normal S-1 and S-2. No S-3. 3/6 mid to late systolic ejection murmur, greatest at the right sternal border, second intercostal space with radiation to the bilateral carotids. No rubs. Pulmonary: Clear to auscultation bilaterally. No rales, rhonchi, or wheezing. Abdomen: Bowel sounds x 4, soft. No rebound, guarding or tenderness. No organomegaly. Extremities: No clubbing, cyanosis or edema. +2 pedal pulses bilaterally. Skin: Warm and dry. Results & Data ([facility]) Vital Signs (Past 12 Hours) Vital Signs Temp Pulse Pulse Resp BP Pulse Ox 05/18/22 10:41 36.5 C 55 L 17 112/68 96 05/18/22 07:52 36.6 C 57 L 19 169/79 H 96 05/18/22 04:42 36.6 C 53 L 20 140/64 94
--- NOTE | 2022-05-18 18:15 | Hospitalist Progress Note ---
Date of Service May 18, 2022 Assessment & Plan (1) Tachycardia-bradycardia syndrome: Plan: Patient is a 61 yr old female who presents with rapid atrial fibrillation Atrial fibrillation with rapid ventricular response Tachybradycardia syndrome Normal TSH ECHO: No significant change from prior echo. EF 65 to 70%. No segmental left ventricular wall motion abnormality. Aortic valve sclerosis moderate, without significant aortic valvular stenosis. On IV Cardizem discontinued Resume Coreg as able Continue sotalol 80 mg twice a day Daily EKGs to monitor for QTC Appreciate cardiology input Continue Eliquis for anticoagulation Monitor and replace electrolytes as needed Converted to sinus spontaneously Needs follow-up with cardiology upon discharge Hypertension: Continue losartan, HCTZ Carvedilol on hold Also on sotalol Losartan dose increased 100 mg daily Otitis media: Continue Rocephin Hyperlipidemia: Continue statin Morbid obesity: BMI 62 Needs counseling. Hypothyroidism: Continue Levothyroxine DVT Px: SCDs Admission and Anticipated Discharge Date Admission Date: May 16, 2022 Subjective Patient is seen and examined at bedside Remains in sinus Sore throat slowly improving No new complaints Denies any chest pain, dyspnea, palpitations, nausea, vomiting, abdominal pain, diarrhea Review of Systems Review of Systems: All systems reviewed & are unremarkable except as noted in Subjective Physical Exam Physical Exam: Physical Exam: Vitals signs as noted above General Appearance:Morbidly Obese, no apparent distress Head: normocephalic, Atraumatic Eyes: normal inspection, EOMI Neck: supple, Trachea midline Respiratory/Chest: Normal breath sounds, CTA, No accessory muscle use Cardiovascular: S1, S2, No murmur Abdomen/GI:Soft, Non tender, Bowel sounds present Extremities/Musculoskeletal:normal inspection, + edema Neurologic/Psych:AAOX3, grossly no focal neurological deficits Skin: normal color, warm Results & Data Results & Data ([facility]) Vital Signs (Past 12 Hours) Vital Signs Temp Pulse Resp BP Pulse Ox 05/18/22 16:05 36.6 C 59 L 18 164/79 H 94 05/18/22 10:41 36.5 C 55 L 17 112/68 96 05/18/22 07:52 36.6 C 57 L 19 169/79 H 96 Laboratory Results [facility] 05/18/22 06:01 Sodium 136 Potassium 3.9 Chloride 101 Carbon Dioxide 28 BUN 25 H Creatinine 0.81 Glucose 95 Calcium 8.4 L
[2022-05-18] MEDS: ACETAMINOPHEN 325 MG TAB PO PRN (19:29)
[2022-05-18] MEDS ORDERED: DICLOFENAC SOD 1% GEL 100 GM TUBE EXT PRN (19:50)
[2022-05-18] MEDS ORDERED: carvediloL 3.125 MG TAB PO SCH (21:00)
[2022-05-19] MEDS: cefTRIAXone SODIUM 2,000 MG in DEXTROSE 5% 50 ML IV SCH (03:39)
[2022-05-19] MEDS: LEVOTHYROXINE SODIUM 100 MCG TABLET PO SCH (05:51)
[2022-05-19 07:10] LABS: BUN Creatinine Ratio 34.9 (10-20); Calcium 8.6 mg/dl (8.5-10.1); Est GFR (African American) 88.8 ml/min; Est GFR (Non-African American) 76.6 ml/min; Potassium 3.5 mmol/L (3.5-5.1)
[2022-05-19] MEDS: SOTALOL HCL 80 MG TAB PO SCH (08:55)
[2022-05-19] MEDS: APIXABAN 5 MG TABLET PO SCH (08:55)
[2022-05-19] MEDS ORDERED: POTASSIUM CHLORIDE CRTAB 20 MEQ TABCR PO ONE (08:55)
[2022-05-19] MEDS: ATORVASTATIN 20 MG TAB PO SCH (08:55)
[2022-05-19] MEDS: hydroCHLOROthiazide 25 MG TAB PO SCH (08:55)
[2022-05-19] MEDS ORDERED: LOSARTAN POTASSIUM 50 MG TAB PO SCH (09:00)
--- NOTE | 2022-05-19 10:13 | Cardiology Progress Note ---
Date of Service May 19, 2022 Assessment & Plan (1) Atrial fibrillation with rapid ventricular response: (2) Chest pain: (3) Hypertension: (4) Tachycardia-bradycardia syndrome: Plan: The pathophysiology, treatment options were discussed with the patient and her at great lengths. Given the fact that this is now recurrent atrial fibrillation I believe the patient would benefit from antiarrhythmic therapy. Likely she has been anticoagulated for a month without interruption so at this time I will initiate sotalol 80 mg p.o. twice daily. She will then be monitored on telemetry and DC cardioversion may be considered should she not lapsed back into normal sinus on her own. spontaneously converted to sinus after intitial dose of sotalol, qtc stable at 437 ms cont eliquis sotalol load has been completed ok to d/c to home from cardiac standpoint my office will call to arrange follow up Admission and Anticipated Discharge Date Admission Date: May 16, 2022 Subjective Patient seen and examined, chart reviewed. No further cardiac complaints. Telemetry reviewed: Normal sinus rhythm without significant ventricular ectopy Review of Systems Review of Systems: All systems reviewed & are unremarkable except as noted in HPI & below Physical Exam Physical Exam: General: Awake, alert and oriented x 3. No acute distress. HEENT: Normocephalic, atraumatic. Pupils equal, round and reactive to light and accommodation. Extraocular muscles are intact. Anicteric sclera. Moist mucous membranes. Neck: No JVD. No bruit. Cardiovascular: Regular. Positive S-4. Normal S-1 and S-2. No S-3. 3/6 mid to late systolic ejection murmur, greatest at the right sternal border, second intercostal space with radiation to the bilateral carotids. No rubs. Pulmonary: Clear to auscultation bilaterally. No rales, rhonchi, or wheezing. Abdomen: Bowel sounds x 4, soft. No rebound, guarding or tenderness. No organomegaly. Extremities: No clubbing, cyanosis or edema. +2 pedal pulses bilaterally. Skin: Warm and dry. Results & Data ([facility]) Vital Signs (Past 12 Hours) Vital Signs Temp Pulse Pulse Resp BP BP Pulse Ox 05/19/22 08:00 36.2 C L 54 L 20 141/59 H 05/19/22 03:42 36.5 C 58 L 18 142/54 H 96 05/18/22 22:56 36.6 C 48 L 18 152/68 H 96 05/18/22 22:54 51 L
--- NOTE | 2022-05-19 12:56 | Hospitalist Progress Note ---
Date of Service May 19, 2022 Assessment & Plan (1) Tachycardia-bradycardia syndrome: Plan: Patient is a 61 yr old female who presents with rapid atrial fibrillation Atrial fibrillation with rapid ventricular response Tachybradycardia syndrome Normal TSH ECHO: No significant change from prior echo. EF 65 to 70%. No segmental left ventricular wall motion abnormality. Aortic valve sclerosis moderate, without significant aortic valvular stenosis. On IV Cardizem discontinued Coreg held for now--Continue to hold upon discharge as per cardiology (Discussed on 05/19/22) Continue sotalol 80 mg twice a day Daily EKGs to monitor for QTC Appreciate cardiology input Continue Eliquis for anticoagulation Monitor and replace electrolytes as needed Converted to sinus spontaneously Needs follow-up with cardiology upon discharge Plan to continue sotalol 80 mg twice a day upon discharge. Hypertension: Continue losartan, HCTZ Carvedilol held for now Also on sotalol Losartan dose increased 100 mg daily Otitis media: Continue Rocephin Hyperlipidemia: Continue statin Morbid obesity: BMI 62 Needs counseling. Hypothyroidism: Continue Levothyroxine DVT Px: SCDs Admission and Anticipated Discharge Date Admission Date: May 16, 2022 Subjective Patient is seen and examined at bedside States having some hip pain today but otherwise no complaints Sore throat improved No other complaints Denies any chest pain, dyspnea, palpitations, nausea, vomiting, abdominal pain, diarrhea Review of Systems Review of Systems: All systems reviewed & are unremarkable except as noted in Subjective Physical Exam Physical Exam: Physical Exam: Vitals signs as noted above General Appearance:Morbidly Obese, no apparent distress Head: normocephalic, Atraumatic Eyes: normal inspection, EOMI Neck: supple, Trachea midline Respiratory/Chest: Normal breath sounds, CTA, No accessory muscle use Cardiovascular: S1, S2, No murmur Abdomen/GI:Soft, Non tender, Bowel sounds present Extremities/Musculoskeletal:normal inspection, + edema Neurologic/Psych:AAOX3, grossly no focal neurological deficits Skin: normal color, warm Results & Data Results & Data ([facility]) Vital Signs (Past 12 Hours) Vital Signs Temp Pulse Resp BP BP Pulse Ox 05/19/22 12:00 36.8 C 54 L 20 136/49 L 96 05/19/22 08:00 36.2 C L 54 L 20 141/59 H 05/19/22 03:42 36.5 C 58 L 18 142/54 H 96 Laboratory Results [facility] 05/19/22 06:02 Sodium 134 L Potassium 3.5 Chloride 99 Carbon Dioxide 28 BUN 29 H Creatinine 0.83 Glucose 95 Calcium 8.6
--- NOTE | 2022-05-19 13:13 | Discharge Summary ---
Date of Service May 19, 2022 Admission HPI Per Admitting Provider CHIEF COMPLAINT: Rapid AFib. HISTORY OF PRESENT ILLNESS: A 61-year-old female with past medical history significant for hyperlipidemia, hypothyroidism, AFib, hypertension, morbid obesity, female infertility, senile osteoporosis, neuropathy, depression, who presents with rapid atrial fibrillation. The patient says when she was trying to sleep, she felt chest discomfort, palpitations, and shortness of breath.In ER found to be in rapid AFib, started on Cardizem drip. Currently resting comfortably, hemodynamically stable. Currently asymptomatic. Denies any headache, felt dizzy . No blurred vision, no earache, no runny nose. She always has some cough. She recently has some sore throat and earache and she was started on Bactrim, she took first dose tonight. No nausea, no abdominal pain. Normal bowel and bladder movements. She has chronic swelling of the lower extremities. Ambulates with a cane. Admission Exam Per Admitting Provider PHYSICAL EXAMINATION: GENERAL: The patient is morbidly obese, not in acute distress. VITAL SIGNS: Temperature 36.5, pulse 108, respiratory rate 20, blood pressure 131/74, oxygen 97% on room air. HEENT: Pupils equal, round and reactive to light. Oral mucosa moist. LUNGS: No JVD, no neck masses. CARDIOVASCULAR: S1 and S2 heard. irregular rhythm, tachycardia. No murmurs. RESPIRATORY SYSTEM: Normal AP diameter. No accessory muscle use. No wheezing, no crackles. ABDOMEN: Soft. Bowel sounds are present, nontender, no distention. CENTRAL NERVOUS SYSTEM: Cranial nerves II-XII grossly intact, nonfocal. EXTREMITIES: Bilateral lower extremity, +2 pedal edema present, no erythema seen. Principal Diagnosis Atrial fibrillation with rapid ventricular response Tachybradycardia syndrome Hypertension Discharge Data Allergies Allergy/AdvReac Type Severity Reaction Status Date / Time lisinopril Allergy Intermediate RASH Verified 05/15/22 23:12 simvastatin Allergy Unknown UNKNOWN Verified 05/15/22 23:12 baby oil Allergy Intermediate Rash Uncoded 05/15/22 23:12 Consultations 05/15/22 23:35 ED Decision to Admit Stat 05/16/22 08:00 Consult Cardiology Routine Hospital Course (1) Tachycardia-bradycardia syndrome: Patient is a 61 yr old female who presents with rapid atrial fibrillation Atrial fibrillation with rapid ventricular response Tachybradycardia syndrome Normal TSH ECHO: No significant change from prior echo. EF 65 to 70%. No segmental left ventricular wall motion abnormality. Aortic valve sclerosis moderate, without significant aortic valvular stenosis. On IV Cardizem discontinued Coreg held for now--Continue to hold upon discharge as per cardiology (Discussed on 05/19/22) Continue sotalol 80 mg twice a day Daily EKGs to monitor for QTC Appreciate cardiology input Continue Eliquis for anticoagulation Monitor and replace electrolytes as needed Converted to sinus spontaneously Needs follow-up with cardiology upon discharge Plan to continue sotalol 80 mg twice a day upon discharge. Hypertension: Continue losartan, HCTZ Carvedilol held for now Also on sotalol Losartan dose increased 100 mg daily Otitis media: Continue Rocephin Hyperlipidemia: Continue statin Morbid obesity: BMI 62 Needs counseling. Hypothyroidism: Continue Levothyroxine DVT Px: SCDs Total Time Total Time Spent Total Time Spent (In Minutes): 45 minutes Discharge Plan Discharge Items Patient Disposition: Home - Self-Care Reason For Visit: TACHYCARDIA Discharge Diagnosis: Atrial fibrillation with rapid ventricular response Tachybradycardia syndrome Hypertension Condition on Discharge: Good Activity: Per Instructions section Exercise/Sports: Gradually increase as tolerated Non-emergency contact: Primary Care Provider and In Class Special Education Teacher Call non-emergency contact if: you have any medication questions, your symptoms worsen, your pain is concerning for you and you have a fever Follow-up/Referrals: [facility] Cardiology [Other] (The Cardiology office will call you with a follow up appointment.) Rik Alan DO [Primary Care Provider] - (Date & Time 05/22/2022 1:40 PM Provider Rik Alan DO Department [facility] ) Diet: Heart Healthy Addtl Attending Provider Instructions: Follow-up with your primary care physician on 05/22/2022 1:40 PM Follow-up with your In Class Special Education Teacher at [facility] cardiology as advised. Office will call you with appointment. --Medication Changes: 1) you are started on sotalol 80 mg twice a day 2) your losartan dose is increased 100 mg daily 3) your antibiotic--Bactrim is changed to cefdinir to complete the course for ear infection 4) your carvedilol is currently discontinued. Follow-up with your physician for further recommendations. Seek immediate medical attention if your symptoms reoccur or worsen Please take all medications as instructed on discharge list below. Please call if you have any questions or problems. You can reach a [facility] hospitalist on duty at [facility] 24 hours a day by calling [phone] Pending Studies at Discharge: No Stand-Alone Forms: My [facility], Smoking Cessation Medications and DC Order Prescriptions: New sotalol 80 mg Tablet 80 mg PO BID17 Qty: 60 RF: 1 losartan 100 mg tablet 100 mg PO DAILY Qty: 30 RF: 1 cefdinir 300 mg capsule 300 mg PO BID Qty: 6 RF: 0 Continued atorvastatin 20 mg Tablet 20 mg PO DAILY RF: 0 levothyroxine [Euthyrox] 100 mcg tablet 100 mcg PO DAILY RF: 0 Eliquis 5 mg Tablet 5 mg PO BID Qty: 60 RF: 0 alendronate 70 mg tablet 70 mg PO WK RF: 0 acetaminophen [Tylenol Arthritis] 650 mg Tablet Extended Release 1,300 mg PO Q8H PRN (Reason: Pain) RF: 0 hydrochlorothiazide 25 mg tablet 25 mg PO DAILY RF: 0 Discontinued carvedilol 6.25 mg tablet 6.25 mg PO BID RF: 0 sulfamethoxazole-trimethoprim [Bactrim DS] 800-160 mg Tablet 1 tab PO BID RF: 0 losartan 50 mg 50 mg PO DAILY RF: 0 Discharge Orders: Discharge Order (Routine); Ordered 05/19/22 Ordered By: Stef Lugo Admission Data Admit Date/Time: 05/16/22 01:38 Attending Provider: Stef Lugo Admit Provider: Jeronimo Sullivan Primary Care Provider: Rik Alan Other Providers: Jeronimo Sullivan ; Stephen Ambrocio ; Asher Arreola ; Buddy Maria ; Daron Duggan ; Pasha Roe ; Adrian Barrientos ; Mellisa Puentes ; Kristan Hill ; Angela Benton ; Alvin Vaughan
--- NOTE | 2022-05-19 14:20 | Electrocardiogram Report ---
Test Reason : Blood Pressure : / mmHG Vent. Rate : 058 BPM Atrial Rate : 058 BPM P-R Int : 174 ms QRS Dur : 094 ms QT Int : 446 ms P-R-T Axes : 050 013 013 degrees QTc Int : 437 ms Sinus bradycardia Otherwise normal ECG When compared with ECG of 19-MAY-2022 06:11, (unconfirmed) No significant change was found Confirmed by Adrien Moody ([id number]) on 05/19/2022 2:19:25 PM Referred By: REFERRED SELF Confirmed By:Adrien Moody
== END 2022-05-19 13:55 | disposition home or self-care (01) | DRG 309 ==
LOC: ED 22:09 → 2E 05-16 01:38

== ENCOUNTER 2023-11-08 09:28 | Inpatient (IN) ==
--- NOTE | 2023-11-08 09:43 | Emergency Department Note ---
ED Provider Note History of Present Illness Chief Complaint: Flank Pain Stated Complaint: pains down left side, feels like kidney stone Time Seen by Provider: 11/08/23 09:42 This is a 63-year-old female who presents to the emergency department with left sided abdominal pain that began acutely yesterday. She is concerned this is a kidney stone. Has a history of kidney stones about 10 years ago which felt very similar to this. She also states that she has had hematuria over the past 2 weeks. She did see her urologist last week who ordered a CAT scan but she has not received the results. She was not having the pain that she is currently experiencing when a CAT scan was obtained. Patient denies any nausea or vomiting. No significant back pain. Pain does not radiate. It is relatively constant in nature. She has not had any fevers or chills. No chest pain or shortness of breath. Has been dealing with urinary frequency as well. Does take Eliquis for atrial fibrillation. Home Medications Medication Instructions Recorded Confirmed Type apixaban 5 mg tablet (Eliquis) 5 mg PO BID #60 tabs 10/23/21 11/08/23 Rx atorvastatin 20 mg tablet 40 mg PO QAM 10/23/21 11/08/23 History levothyroxine 100 mcg tablet 100 mcg PO QAM 10/23/21 11/08/23 History (Euthyrox) acetaminophen 650 mg 1,300 mg PO Q8H PRN Pain 05/15/22 11/08/23 History tablet,extended release alendronate 70 mg tablet 70 mg PO WK 05/15/22 11/08/23 History hydrochlorothiazide 25 mg tablet 25 mg PO QAM 05/16/22 11/08/23 History hydroxyzine HCl 25 mg tablet 25 - 50 mg (1 - 2 x 25 mg) PO Q6H 07/10/22 11/08/23 Rx PRN itching #20 tabs losartan 100 mg tablet 50 mg PO QAM 12/16/22 11/08/23 History nystatin 100,000 unit/gram topical 1 applic topical TID #15 grams 05/06/23 11/08/23 Rx powder mirabegron 50 mg tablet,extended 50 mg PO DAILY 11/08/23 11/08/23 History release 24 hr (Myrbetriq) sotalol 80 mg tablet 40 mg PO BID17 11/08/23 11/08/23 History valacyclovir 1 gram tablet See Rx Instructions .Route 11/08/23 11/08/23 History (Valtrex) .COMPLEX PRN Cold Sores Allergies Allergy/AdvReac Type Severity Reaction Status Date / Time lisinopril Allergy Intermediate RASH Verified 12/24/22 08:43 simvastatin Allergy Unknown UNKNOWN Verified 12/24/22 08:43 nickel Allergy itching Verified 12/24/22 08:43 baby oil Allergy Intermediate Rash Uncoded 12/24/22 08:43 Past Med/Surg History Medical History Morbid obesity with BMI of 60.0-69.9, adult Frequent urination at night Pre-diabetes Neuropathy Atrial fibrillation on Eliquis Cardiac murmur Follows with Dr. Olga Lidia BARRAZA (hyperlipidemia) Osteoporosis Hypothyroidism Tachycardia-bradycardia syndrome Hypertension Surgical History History of wisdom tooth extraction History of hip surgery BL Family History Other No family history of adverse response to anesthesia Social History Smoking Status: Never smoker Second Hand Exposure: No; Do You Dip or Chew Tobacco: No; Hx Alcohol Use: No Hx Substance Use: No Preferred Language: Citizen Of [place] Communication Ability: Effective Naturalist Required: No Beliefs That Will Affect Care: None Current Living Situation: Significant Other Current Living Situation Comment: Home with Fiancee How many Children do You have: 0 Feels Safe at Home: Yes Assistive Devices: Cane and Glasses Physical Exam Vital Signs Vital Signs - 24 hr 11/08/23 09:29 11/08/23 10:05 11/08/23 11:09 Temperature 97.0 F L Temperature Source Skin Pulse Rate 66 69 Pulse Rate [Apical] 67 Respiratory Rate 20 20 Respiratory Effort / Characteristics Non-Labored Spontaneous Non-Labored Respiratory Depth Normal Normal Respiratory Pattern Regular Blood Pressure 203/87 H Blood Pressure [Right Arm] 202/75 H Blood Pressure Mean 125 Blood Pressure Mean [Right Arm] 117 Blood Pressure Position [Right Arm] Lying Pulse Oximetry 97 94 Oxygen Delivery Method Room Air Room Air Sepsis Recent Fever Within 48 Hours No Sepsis New/Unexplained Change in Mental Status N/A Sepsis Action Taken by Nursing No Action Required 11/08/23 11:09 11/08/23 12:32 11/08/23 12:32 Temperature Temperature Source Pulse Rate 68 73 Pulse Rate [Apical] 72 Respiratory Rate 22 22 22 Respiratory Effort / Characteristics Respiratory Depth Normal Respiratory Pattern Blood Pressure Blood Pressure [Right Arm] 206/97 H Blood Pressure Mean Blood Pressure Mean [Right Arm] 133 Blood Pressure Position [Right Arm] Pulse Oximetry 95 97 97 Oxygen Delivery Method Room Air Room Air Room Air Sepsis Recent Fever Within 48 Hours Sepsis New/Unexplained Change in Mental Status Sepsis Action Taken by Nursing CONSTITUTIONAL: Well developed, well nourished, appears to be uncomfortable. HEAD: Normocephalic, atraumatic. EYES: conjunctivae normal, extraocular muscles intact. No scleral icterus ENMT: External ears normal. Nose with normal external appearance, no congestion. Oral mucous membranes moist. NECK: Full active range of motion. LYMPHATIC: No inguinal adenopathy RESPIRATORY: Breathing unlabored and symmetric. Lungs clear to auscultation bilaterally. No wheeze, rales, or rhonchi. CARDIOVASCULAR: Regular rate and rhythm. No murmurs, rubs, or gallops. ABDOMEN: Normal bowel sounds. There is reproducible tenderness in the left lower quadrant extending into the left oblique. No CVA tenderness bilaterally. No back tenderness. MUSCULOSKELETAL: Moves all extremities at all joints without pain or difficulty SKIN: [place], warm, dry. No rash, skin changes, or swelling about the back or abdomen NEUROLOGIC: Awake, alert, oriented. Gaze is conjugate. Face symmetric, speech normal. Moves head and all four extremities spontaneously. PSYCHIATRIC: Appropriate. Normal affect Course Administered Medications Lactated Ringer's (Lr) 1,000 mls @ 15 mls/hr IV .Q24H BALJEET Stop: 12/08/23 12:59 Last Admin: 11/08/23 13:30 Dose: 15 mls/hr Documented By: NOVA Cefazolin Sodium (Ancef 3000mg) 72.5 mls @ 130 mls/hr IV PREOP BALJEET; Protocol Stop: 11/08/23 20:00 Last Admin: 11/08/23 13:52 Dose: 130 mls/hr Documented By: [id number] Promethazine HCl 6.25 mg/ (Sodium Chloride) 50.25 mls @ 204 mls/hr IV ONCE PRN PRN Reason: PACU Use Only-Nausea/Vomiting Stop: 11/08/23 21:53 Last Admin: 11/08/23 16:15 Dose: 204 mls/hr Documented By: JONATHON Ondansetron HCl (Ondansetron Inj 2 Mg/Ml 2 Ml Vial) 4 mg IV Q6H PRN PRN Reason: Nausea Stop: 12/08/23 12:23 Last Admin: 11/08/23 12:48 Dose: 4 mg Documented By: YUSUF Discontinued Medications Cefazolin Sodium (Cefazolin 3000mg/72.5 Ml Bag) Confirm Administered Dose 3,000 mg IV .STK-MED ONE Stop: 11/08/23 13:39 Last Admin: 11/08/23 14:27 Dose: Not Given Documented By: LDV Diatrizoate Meglumine (Diatrizoate Meglumine 30% 100ml Vial) 100 ml INSTIL ONCE ONE Stop: 11/08/23 14:40 Last Admin: 11/08/23 14:39 Dose: 10 ml Documented By: [id number] Hydralazine HCl (Hydralazine Hcl 20 Mg/Ml Vial) 5 mg IV NOW ONE Stop: 11/08/23 16:00 Last Admin: 11/08/23 16:03 Dose: 5 mg Documented By: JONATHON Hydralazine HCl (Hydralazine Hcl 20 Mg/Ml Vial) Confirm Administered Dose 20 mg .ROUTE .STK-MED ONE Stop: 11/08/23 16:02 Last Admin: 11/08/23 16:04 Dose: Not Given Documented By: JONATHON Hydromorphone HCl (Hydromorphone Inj 1 Mg/Ml Syringe) 1 mg IV NOW STA Stop: 11/08/23 11:52 Last Admin: 11/08/23 12:32 Dose: 1 mg Documented By: YUSUF Sodium Chloride (Nss) 500 mls @ 999 mls/hr IV .Q31M ONE Stop: 11/08/23 10:36 Last Infusion: 11/08/23 11:09 Dose: Infused Documented By: Admin: 11/08/23 10:32 Dose: 999 mls/hr Documented By: LUIS Ioversol (Optiray 320 125ml) 116 ml IV ONCE ONE Stop: 11/08/23 10:46 Last Admin: 12/11/23 10:45 Dose: 116 ml Documented By: QUINN Morphine Sulfate (Morphine Sulfate 4 Mg/Ml 1 Ml Carp\Vial) 4 mg IV NOW STA Stop: 11/08/23 10:02 Last Admin: 11/08/23 10:05 Dose: 4 mg Documented By: LUIS Promethazine HCl (Promethazine Hcl Inj 25 Mg/Ml 1 Ml Vial) Confirm Administered Dose 25 mg .ROUTE .STK-MED ONE Stop: 11/08/23 16:10 Last Admin: 11/08/23 16:41 Dose: Not Given Documented By: [facility] Sodium Chloride (Sodium Chloride 0.9% 50 Ml Bag) Confirm Administered Dose 50 ml .ROUTE .STK-MED ONE Stop: 11/08/23 16:10 Last Admin: 11/08/23 16:41 Dose: Not Given Documented By: [facility] Medical Decision Making Differential Diagnosis Ureterolithiasis, hydronephrosis, abscess, UTI, pyelonephritis, myofascial pain, radicular pain, diverticulitis, constipation, bowel gas, vascular injury, among other pathology Laboratory Data 11/08/23 09:57 11/08/23 09:57 Lab Results 11/08/23 11/08/23 Range/Units 09:50 09:57 WBC 9.95 (4.8-10.8) K/ul RBC 4.09 L (4.20-5.40) M/uL Hgb 11.4 L (12.0-16.0) g/dl Hct 35.4 L (37.0-47.0) % MCV 86.6 (80.0-100.0) fL MCH 27.9 (25.0-34.0) pg MCHC 32.2 (32.0-36.0) g/dL RDW Std Deviation 45.1 (36.4-46.3) fL RDW Coeff of Johnny 14.4 (11.5-14.5) % Plt Count 299 (130-400) K/uL MPV 9.5 (9.4-12.4) fL Immature Gran % (Auto) 0.7 % Neut % (Auto) 60.4 % Lymph % (Auto) 30.3 % [place] % (Auto) 6.9 % Eos % (Auto) 1.3 % Baso % (Auto) 0.4 % Neut # (Auto) 6.01 (1.40-6.50) K/uL Lymph # (Auto) 3.01 (1.20-3.40) K/uL [place] # (Auto) 0.69 H (0.11-0.59) K/uL Eos # (Auto) 0.13 (0.00-0.50) K/uL Baso # (Auto) 0.04 (0.00-0.20) K/uL Immature Gran # (Auto) 0.07 (0.01-0.20) K/uL PT 10.4 (9.0-12.0) Seconds INR 0.9 (0.9-1.1) APTT 25 (21-31) Seconds PTT Ratio 0.9 Sodium 136 (136-145) mmol/L Potassium 4.2 (3.5-5.1) mmol/L Chloride 103 (98-107) mmol/L Carbon Dioxide 27 (21-32) mmol/L Anion Gap 6 (3-11) BUN 19 (6-23) mg/dl Creatinine 0.92 (0.6-1.2) mg/dl Est Cr Clr Drug Dosing Not Reportable Est GFR ( Amer) 77.3 ml/min Est GFR (Non-Af Amer) 66.7 ml/min BUN/Creatinine Ratio 20.7 H (10-20) Glucose 108 H (70-99(Fasting)) mg/dl Calcium 9.0 (8.6-10.3) mg/dl Total Bilirubin 0.5 (0.2-1.0) mg/dl AST 12 L (13-39) U/L ALT 9 (7-52) U/L Alkaline Phosphatase 65 (34-104) U/L Total Protein 7.3 (6.0-8.3) gm/dl Albumin 4.0 (3.4-5.0) gm/dl Globulin 3.3 (2.5-4.0) gm/dl Albumin/Globulin Ratio 1.2 (0.9-2) Lipase 20 (11-82) U/L Urine Color Yellow Urine Appearance Cloudy A (Clear) Urine pH 5.5 (4.5-7.5) Ur Specific [place] 1.015 (1.000-1.030) Urine Protein Negative (Negative) Urine Glucose (UA) Negative (Negative) Urine Ketones Negative (Negative) Urine Blood 3+ H (Negative) Urine Nitrite Negative (Negative) Urine Bilirubin Negative (Negative) Urine Urobilinogen Negative (Negative) Ur Leukocyte Esterase Trace H (Negative) Urine WBC (Auto) 1-5 (0-5) /hpf Urine RBC (Auto) >30 H (0-4) /hpf U Hyaline Cast (Auto) 1-5 (0-5) /lpf U Epithel Cells (Auto) >30 H (0-5) /lpf Urine Bacteria (Auto) Negative (Negative) Imaging Data Radiologist's Impression: Abdomen/Pelvis CT 11/08/23 09:59 CT SCAN OF THE ABDOMEN AND PELVIS WITH IV CONTRAST CLINICAL HISTORY: Left flank/lower quadrant abdominal pain. COMPARISON STUDY: Abdominal CT dated 03/08/2023. TECHNIQUE: Following the IV administration of 116 cc of Optiray 320, CT scan of the abdomen and pelvis is performed from the lung bases to the proximal femora. Images are reviewed in the axial, sagittal, and coronal planes. IV contrast was administered without complication. A dose lowering technique was utilized adhering to the principles of ALARA. The examination is degraded by large body habitus, and by streak artifact from the body wall abutting the CT gantry. CT DOSE: 1535.53 mGy.cm FINDINGS: Lung bases: The heart is normal in size and without pericardial effusion. The lung bases are clear. Liver: The contrast-enhanced liver is enlarged, measuring 20 cm in length. The liver demonstrates diffusely diminished attenuation indicating steatosis. Fatty sparing is seen adjacent to the gallbladder fossa. There is no intrahepatic biliary ductal dilatation. The hepatic veins and portal veins are patent. Gallbladder: Unremarkable. Spleen: Normal in size and attenuation. Pancreas: Unremarkable. Adrenal glands: Unremarkable. Kidneys: The contrast enhanced kidneys are normal in size. There is a 10 mm obstructing calculus in the proximal ureter below the ureteropelvic junction. This is seen on image #177 at the level of L3 and causes mild to moderate left hydroureteronephrosis. There is associated left-sided perinephric stranding and trace fluid. There is heterogeneously diminished enhancement of the left kidney as compared to the right. There is an additional 2 cm nonobstructing calculus in the left upper pole. Punctate nonobstructing calculi are suspected in the left lower pole. There are at least 2 nonobstructing right renal calculi which measure up to 9 mm. No right ureteral stones or right-sided hydronephrosis is seen. Abdominal vasculature: The abdominal aorta is normal in course and caliber noting advanced atherosclerotic calcification. Bowel: There is moderate sigmoid diverticulosis without CT evidence of acute diverticulitis. No bowel obstruction is seen. The appendix is well-visualized and normal. Peritoneum: There is no intraperitoneal free air or abdominal ascites. Lymphadenopathy: None. Pelvic viscera: The bladder, uterus, and adnexa are normal as visualized. Skeletal structures: The skeletal structures are osteopenic. There is mild to moderate lumbosacral spondylosis. No lytic or blastic lesions are seen. Postsurgical change is seen in the proximal femora. IMPRESSION: 1. There is a 10 mm obstructing calculus in the left proximal ureter. This causes mild to moderate left-sided hydronephrosis. 2. Additional bilateral nonobstructing renal calculi as above. 3. There is heterogeneously diminished enhancement of the left kidney as compared to the right, likely related to obstruction and hydronephrosis. Correlate with clinical findings and urinalysis for evidence of superimposed urinary tract infection. 4. Hepatomegaly and hepatic steatosis. 5. Sigmoid diverticulosis without CT evidence of acute diverticulitis. 6. Additional findings as above. ACT 112: Negative or not required by law. Electronically signed by: Leland Tate M.D. 11/08/2023 11:01 AM MDM Narrative This is a 63-year-old female who presents to the emergency department with acute left abdominal/flank pain that began yesterday and has been progressively worsening. Has had hematuria and urinary frequency over the past 2 weeks. See above for further details. Patient does appear to be in acute pain on my initial exam. She was hypertensive. She has reproducible tenderness in the left lower abdomen into the left oblique region. IV was inserted and labs were obtained. She was given IV morphine and gentle IV fluids. Labs: No leukocytosis. Stable anemia. No thrombocytopenia. Coags are normal. Renal function is normal. No transaminitis. Lipase is normal. Urine is positive for blood, trace leukocyte esterase, and greater than 30 epithelial cells. No convincing evidence of infection. CT abdomen and pelvis was obtained demonstrating a 10 mm left proximal ureter stone with hydronephrosis and decreased enhancement of the left kidney. Do not suspect infection. This was reviewed with ED attending Dr. Wallace who agrees. I had reviewed a prior CT from [facility] obtained several days ago and there were no stones in the ureter at that time however there were stones sitting within the upper and lower poles of the kidney at that time which certainly could be contributing to her symptoms over the past few weeks. Patient did not receive relief with morphine so was given a dose of Dilaudid. I discussed the case with [facility] urology on-call Jennifer Tucker who requested that she remain NPO and will likely be taken to the OR later for stenting. They requested that I admit the patient under medicine with urology consult. Spoke with [facility] hospitalist group Vy Schmidt DISPLAY FABRICATION SUPERVISOR who agrees to admit the patient under Dr. Mason. Impression Calculus of proximal left ureter, Intractable back pain Discharge Plan Visit Data Chief Complaint: Flank Pain Stated Complaint: pains down left side, feels like kidney stone ED Provider: Ruddy Wallace ED Midlevel Provider: Tyrese Phan Discharge Problem: Calculus of proximal left ureter, Intractable back pain Patient Disposition: Admitted As Inpatient Condition: Fair
[2023-11-08] MEDS ORDERED: MoRPHine SULFATE 4 MG/ML 1 ML CARP\\VIAL IV STA (10:01)
[2023-11-08] MEDS ORDERED: SODIUM CHLORIDE 0.9% 500 ML IV ONE (10:06)
[2023-11-08 10:19] LABS: Basophils # (auto) 0.04 K/uL (0.00-0.20); Basophils % (auto) 0.4 %; Eosinophils # (auto) 0.13 K/uL (0.00-0.50); Eosinophils % (auto) 1.3 %; Hematocrit (blood only) 35.4 % (37.0-47.0); Hemoglobin 11.4 g/dl (12.0-16.0); Immature Granulocytes # (auto) 0.07 K/uL (0.01-0.20); Immature Granulocytes % (auto) 0.7 %; Lymphocytes # (auto) 3.01 K/uL (1.20-3.40); Lymphocytes % (auto) 30.3 %; Mean Corpuscular Hemoglobin 27.9 pg (25.0-34.0); Mean Corpuscular Hgb Conc 32.2 g/dL (32.0-36.0); Mean Corpuscular Volume 86.6 fL (80.0-100.0); Mean Platelet Volume 9.5 fL (9.4-12.4); Monocytes # (auto) 0.69 K/uL (0.11-0.59); Monocytes % (auto) 6.9 %; Neutrophils # (auto) 6.01 K/uL (1.40-6.50); Neutrophils % (auto) 60.4 %; Platelet Count 299 K/uL (130-400); RDW Coefficient of Variation 14.4 % (11.5-14.5); RDW Standard Deviation 45.1 fL (36.4-46.3); Red Blood Count 4.09 M/uL (4.20-5.40); White Blood Count 9.95 K/ul (4.8-10.8)
[2023-11-08 10:29] LABS: Appearance Urine Cloudy (Clear); Bacteria Urine Automated Negative (Negative); Bilirubin Urine Negative (Negative); Blood Urine 3+ (Negative); Color Urine Yellow; Epithelial Cell Urine Auto >30 /lpf (0-5); Glucose Urine UA Negative (Negative); Ketones Urine Negative (Negative); Leukocyte Esterase Urine Trace (Negative); Nitrite Urine Negative (Negative); Protein Urine Negative (Negative); RBC Urine Automated >30 /hpf (0-4); Specific Gravity Urine 1.015 (1.000-1.030); Urobilinogen Urine Negative (Negative); pH Urine 5.5 (4.5-7.5)
[2023-11-08 10:30] LABS: Alanine Aminotransferase 9 U/L (7-52); Albumin Globulin Ratio 1.2 (0.9-2); Alkaline Phosphatase 65 U/L (34-104); Anion Gap 6 (3-11); Aspartate Aminotransferase 12 U/L (13-39); BUN Creatinine Ratio 20.7 (10-20); Bilirubin,Total 0.5 mg/dl (0.2-1.0); Blood Urea Nitrogen 19 mg/dl (6-23); Carbon Dioxide 27 mmol/L (21-32); Chloride 103 mmol/L (98-107); Est GFR (African American) 77.3 ml/min; Est GFR (Non-African American) 66.7 ml/min; Globulin 3.3 gm/dl (2.5-4.0); Glucose 108 mg/dl (70-99(Fasting)); Potassium 4.2 mmol/L (3.5-5.1); Sodium 136 mmol/L (136-145); Total Protein 7.3 gm/dl (6.0-8.3)
[2023-11-08 10:41] LABS: INR 0.9 (0.9-1.1); Partial Thromboplastin Ratio 0.9; Partial Thromboplastin Time 25 Seconds (21-31); Prothrombin Time 10.4 Seconds (9.0-12.0)
[2023-11-08] MEDS ORDERED: OPTIRAY 320 125ml IV ONE (10:45)
--- NOTE | 2023-11-08 11:04 | CT Scan Report ---
CT SCAN OF THE ABDOMEN AND PELVIS WITH IV CONTRAST CLINICAL HISTORY: Left flank/lower quadrant abdominal pain. COMPARISON STUDY: Abdominal CT dated 03/08/2023. TECHNIQUE: Following the IV administration of 116 cc of Optiray 320, CT scan of the abdomen and pelv is is performed from the lung bases to the proximal femora. Images are reviewed in the axial, sagitta l, and coronal planes. IV contrast was administered without complication. A dose lowering technique w as utilized adhering to the principles of ALARA. The examination is degraded by large body habitus, a nd by streak artifact from the body wall abutting the CT gantry. CT DOSE: 1535.53 mGy.cm FINDINGS: Lung bases: The heart is normal in size and without pericardial effusion. The lung bases are clear. Liver: The contrast-enhanced liver is enlarged, measuring 20 cm in length. The liver demonstrates dif fusely diminished attenuation indicating steatosis. Fatty sparing is seen adjacent to the gallbladder fossa. There is no intrahepatic biliary ductal dilatation. The hepatic veins and portal veins are pa tent. Gallbladder: Unremarkable. Spleen: Normal in size and attenuation. Pancreas: Unremarkable. Adrenal glands: Unremarkable. Kidneys: The contrast enhanced kidneys are normal in size. There is a 10 mm obstructing calculus in t he proximal ureter below the ureteropelvic junction. This is seen on image #177 at the level of L3 an d causes mild to moderate left hydroureteronephrosis. There is associated left-sided perinephric stra nding and trace fluid. There is heterogeneously diminished enhancement of the left kidney as compared to the right. There is an additional 2 cm nonobstructing calculus in the left upper pole. Punctate n onobstructing calculi are suspected in the left lower pole. There are at least 2 nonobstructing right renal calculi which measure up to 9 mm. No right ureteral stones or right-sided hydronephrosis is se en. Abdominal vasculature: The abdominal aorta is normal in course and caliber noting advanced atheroscle rotic calcification. Bowel: There is moderate sigmoid diverticulosis without CT evidence of acute diverticulitis. No bowel obstruction is seen. The appendix is well-visualized and normal. Peritoneum: There is no intraperitoneal free air or abdominal ascites. Lymphadenopathy: None. Pelvic viscera: The bladder, uterus, and adnexa are normal as visualized. Skeletal structures: The skeletal structures are osteopenic. There is mild to moderate lumbosacral sp ondylosis. No lytic or blastic lesions are seen. Postsurgical change is seen in the proximal femora. IMPRESSION: 1. There is a 10 mm obstructing calculus in the left proximal ureter. This causes mild to moderate le ft-sided hydronephrosis. 2. Additional bilateral nonobstructing renal calculi as above. 3. There is heterogeneously diminished enhancement of the left kidney as compared to the right, likel y related to obstruction and hydronephrosis. Correlate with clinical findings and urinalysis for evid ence of superimposed urinary tract infection. 4. Hepatomegaly and hepatic steatosis. 5. Sigmoid diverticulosis without CT evidence of acute diverticulitis. 6. Additional findings as above. ACT 112: Negative or not required by law. Electronically signed by: Leland Tate M.D. 11/08/2023 11:01 AM
[2023-11-08 11:08] LABS: Lipase 20 U/L (11-82)
--- NOTE | 2023-11-08 11:42 | Emergency Department Note ---
ED Visit Note Physician Evaluation Note: I did review patient's history and chart with JOSE E and developed MDM. I agree with assessment and plan of Tyrese Phan PA-C. I did independently interpret and formulated the CT scan of the abdomen pelvis. There is a proximal left ureteral stone causing obstruction and hydronephrosis. Ruddy Wallace MD
[2023-11-08] MEDS ORDERED: HYDROmorphone INJ 1 MG/ML SYRINGE IV STA (11:51)
[2023-11-08] MEDS ORDERED: MAGNESIUM HYDROXIDE SUSP 30 ML UDC PO PRN (12:24)
[2023-11-08] MEDS ORDERED: ALUMINUM/MAGNESIUM SUSP 30 ML UDC PO PRN (12:24)
[2023-11-08] MEDS ORDERED: POLYETHYLENE (MIRALAX) 17 GM PACK PO PRN (12:24)
--- NOTE | 2023-11-08 12:40 | History & Physical Report ---
Date of Service November 08, 2023 Assessment & Plan (1) Calculus of proximal left ureter: (2) Atrial fibrillation: (3) Hypothyroidism: (4) Obesity: (5) HLD (hyperlipidemia): Plan Ms. Cox is a 63 year old female with a PMH of Atrial Fibrillation (On Eliquis), HDL, and Hypothyroidism that presents to the ED today with acute left flank pain. She has been complaining of having hematuria for three weeks. She does follow with [facility] for urine incontinence and nocturia (6-7 x per night). Patient afebrile and does not appear systemic/does not appear toxic. Hypertensive in ED likely secondary to pain. She was given Dilaudid in the ED with some relief. Urology saw the patient and discussed acute stone management with cystoscopy and stent placement. Ureteral stents were discussed as well as postoperative issues and pain management. It will be necessary for her to undergo a second procedure for stone treatment in the future. Abdomen/Pelvis CT reveals There is a 10 mm obstructing calculus in the left proximal ureter. This causes mild to moderate left-sided hydronephrosis. 2. Additional bilateral nonobstructing renal calculi as above. 3. There is heterogeneously diminished enhancement of the left kidney as compared to the right, likely related to obstruction and hydronephrosis. Correlate with clinical findings and urinalysis for evidence of superimposed urinary tract infection. 4. Hepatomegaly and hepatic steatosis. 5. Sigmoid diverticulosis without CT evidence of acute diverticulitis. Spoke with Urology; likely plan for stent placement proceed to OR today for cystoscopy, left retrograde pyelogram, left ureteral stent placement with Dr. Nassar. For now, keep NPO (has not eaten anything today), and pain control. Urology will initiate preop abx. Patient cleared for surgery from a hospitalist perspective. Calculus of proximal left ureter with hydronephrosis: Acute History of kidney stones; 10 years ago without surgical intervention abdomen/pelvis CT: 1. There is a 10 mm obstructing calculus in the left proximal ureter. This causes mild to moderate left-sided hydronephrosis. 2. Additional bilateral nonobstructing renal calculi as above. 3. There is heterogeneously diminished enhancement of the left kidney as compared to the right, likely related to obstruction and hydronephrosis. Correlate with clinical findings and urinalysis for evidence of superimposed urinary tract infection. 5. Sigmoid diverticulosis without CT evidence of acute diverticulitis. No Leukocytosis, does not appear toxic (+) flank/abdominal pain; Dilaudid given in ED; caused nausea; Zofran administered. Keep NPO Urology planning to take to OR for stent placement this afternoon Urology will order pre-op abx Atrial fibrillation: Chronic stable Diagnosed 2020; spontaneous conversion to NSR Takes Eliquis, sotalol; continue Did not take Eliquis or any of her medications this AM Resume Eliquis tonight; discussed with Urology Hepatomegaly: Acute Noted on CT Check LFTs and consider liver US Denies alcohol use H/O Urolithiasis: Follows with Dr. Sanford [facility] Urinary incontinence and nocturia 6-7 times per night No surgery in the past Consideration discussed regarding starting oxybutynin HTN: Chronic stable Follows with outpatient cardiology Currently hypertensive suspect due to pain Takes losartan; continue HLD: Chronic stable Last lipid panel 10/26/2023; TG 160, HDL 37 LDL 128 Takes atorvastatin; continue Hypothyroidism: Chronic stable Most recent TSH 09/11/2023; 3.55 Takes levothyroxine; continue Disposition: PCP: Dr. Alan Code Status: Full Code VTE Prophylaxis: On Eliquis I spent a total of 87 minutes coordinating, documenting, and providing care for this patient excluding time spent in the performance of separately billed services. All of the aforementioned completed while collaborating with the assigned attending physician for a full treatment plan. Please see their addendum for further details. History of Present Illness Chief Complaint: obstructing kidney stone Primary Care Provider: Rik Alan DO Ms. Cox is a 63 year old female with a PMH of Atrial Fibrillation (On Eliquis), HDL, and Hypothyroidism that presents to the ED today with acute left flank pain. She has been complaining of having hematuria for three weeks. She does follow with [facility] for urine incontinence and nocturia (6-7 x per night). Patient afebrile and does not appear systemic/does not appear toxic. Hypertensive in ED likely secondary to pain. She was given Dilaudid in the ED with some relief. Urology saw the patient and discussed acute stone management with cystoscopy and stent placement. Ureteral stents were discussed as well as postoperative issues and pain management. It will be necessary for her to undergo a second procedure for stone treatment in the future. Abdomen/Pelvis CT reveals There is a 10 mm obstructing calculus in the left proximal ureter. This causes mild to moderate left-sided hydronephrosis. 2. Additional bilateral nonobstructing renal calculi as above. 3. There is heterogeneously diminished enhancement of the left kidney as compared to the right, likely related to obstruction and hydronephrosis. Correlate with clinical findings and urinalysis for evidence of superimposed urinary tract infection. 4. Hepatomegaly and hepatic steatosis. 5. Sigmoid diverticulosis without CT evidence of acute diverticulitis. She was diagnosed with AF in 2020 and had a ZIO patch in 2021 with thirteen runs of SVT lasting up to seven seconds. There was discussion of pacemaker placement but patient was hesitant. Spoke with Urology; likely plan for stent placement this afternoon in the OR. For now, keep NPO (has not eaten anything today), and pain control. Urology will initiate preop abx. Patient cleared for surgery from a hospitalist perspective. Patient would like to proceed to OR today for cystoscopy, left retrograde pyelogram, left ureteral stent placement with Dr. Nassar. Patient will be admitted for further evaluation and management. Please see A/P for further details. Allergies Allergy/AdvReac Type Severity Reaction Status Date / Time lisinopril Allergy Intermediate RASH Verified 12/24/22 08:43 simvastatin Allergy Unknown UNKNOWN Verified 12/24/22 08:43 nickel Allergy itching Verified 12/24/22 08:43 baby oil Allergy Intermediate Rash Uncoded 12/24/22 08:43 Home Medications Medication Instructions Recorded Confirmed Type apixaban 5 mg tablet (Eliquis) 5 mg PO BID #60 tabs 10/23/21 11/08/23 Rx atorvastatin 20 mg tablet 40 mg PO QAM 10/23/21 11/08/23 History levothyroxine 100 mcg tablet 100 mcg PO QAM 10/23/21 11/08/23 History (Euthyrox) acetaminophen 650 mg 1,300 mg PO Q8H PRN Pain 05/15/22 11/08/23 History tablet,extended release alendronate 70 mg tablet 70 mg PO WK 05/15/22 11/08/23 History hydrochlorothiazide 25 mg tablet 25 mg PO QAM 05/16/22 11/08/23 History hydroxyzine HCl 25 mg tablet 25 - 50 mg (1 - 2 x 25 mg) PO Q6H 07/10/22 11/08/23 Rx PRN itching #20 tabs losartan 100 mg tablet 50 mg PO QAM 12/16/22 11/08/23 History nystatin 100,000 unit/gram topical 1 applic topical TID #15 grams 05/06/23 11/08/23 Rx powder mirabegron 50 mg tablet,extended 50 mg PO DAILY 11/08/23 11/08/23 History release 24 hr (Myrbetriq) sotalol 80 mg tablet 40 mg PO BID17 11/08/23 11/08/23 History valacyclovir 1 gram tablet See Rx Instructions .Route 11/08/23 11/08/23 History (Valtrex) .COMPLEX PRN Cold Sores Past Med/Surg History Medical History Morbid obesity with BMI of 60.0-69.9, adult Frequent urination at night Pre-diabetes Neuropathy Atrial fibrillation on Eliquis Cardiac murmur Follows with Dr. 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: No Beliefs That Will Affect Care: None Current Living Situation: Significant Other Current Living Situation Comment: Home with Fiancee How many Children do You have: 0 Feels Safe at Home: Yes Assistive Devices: Cane, Denture - Upper, Denture - Lower and Walker Review of Systems Review of Systems: Neuro: (-) Falls, trauma, slurred speech HEENT: (-) FIELDS, dizziness, dysphagia, visual or auditory changes CV: (-) CP, palpitations, swelling Resp: (-) SOB GI: (-) appetite changes, N/V/D, bowel changes : (-) urinary changes Skin: (-) rashes Psych: (-) anxiety, depression Physical Exam Physical Exam: Neuro: AAOx4, PERRLA, no aphagia, memory changes, CNII-XII grossly intact (+) pain HEENT: head normocephalic, moist mucus membranes CV: S1/S2, (+) M (-) G/R, (+) generalized LE edema, cap refill < 3 seconds Resp: Lungs CTA in all redding. On RA GI: Abdomen S/NT/ND, Ax4 bowel sounds, (+) left CVA tenderness Musculoskeletal: 5/5 B/L UE strength, 5/5 B/L LE strength. Uses a walker at baseline d/t knee pain Skin: (-) rashes , (-) erythema. Psych: euthymic mood Results & Data Results & Data Vital Signs (Past 12 Hours) Vital Signs Temp Pulse Pulse Resp BP BP Pulse Ox 11/08/23 11:09 68 22 95 11/08/23 11:09 67 20 202/75 H 94 11/08/23 10:05 69 11/08/23 09:29 36.1 C L 66 20 203/87 H 97 O2 Del Method 11/08/23 11:09 Room Air 11/08/23 11:09 Room Air 11/08/23 10:05 11/08/23 09:29 Room Air Laboratory Results Short CBC 11/08/23 Range/Units 09:57 WBC 9.95 (4.8-10.8) K/ul Hgb 11.4 L (12.0-16.0) g/dl Hct 35.4 L (37.0-47.0) % Plt Count 299 (130-400) K/uL BMP 11/08/23 09:57 Sodium 136 Potassium 4.2 Chloride 103 Carbon Dioxide 27 BUN 19 Creatinine 0.92 Glucose 108 H Calcium 9.0 Liver Function 11/08/23 Range/Units 09:57 Total Bilirubin 0.5 (0.2-1.0) mg/dl AST 12 L (13-39) U/L ALT 9 (7-52) U/L Alkaline Phosphatase 65 (34-104) U/L Albumin 4.0 (3.4-5.0) gm/dl Urine 11/08/23 Range/Units 09:50 Urine Color Yellow Urine Appearance Cloudy A (Clear) Urine pH 5.5 (4.5-7.5) Ur Specific [place] 1.015 (1.000-1.030) Urine Protein Negative (Negative) Urine Glucose (UA) Negative (Negative) Diagnostic Findings Abdomen/Pelvis CT 11/08/23 09:59 CT SCAN OF THE ABDOMEN AND PELVIS WITH IV CONTRAST CLINICAL HISTORY: Left flank/lower quadrant abdominal pain. COMPARISON STUDY: Abdominal CT dated 03/08/2023. TECHNIQUE: Following the IV administration of 116 cc of Optiray 320, CT scan of the abdomen and pelvis is performed from the lung bases to the proximal femora. Images are reviewed in the axial, sagittal, and coronal planes. IV contrast was administered without complication. A dose lowering technique was utilized adhering to the principles of ALARA. The examination is degraded by large body habitus, and by streak artifact from the body wall abutting the CT gantry. CT DOSE: 1535.53 mGy.cm FINDINGS: Lung bases: The heart is normal in size and without pericardial effusion. The lung bases are clear. Liver: The contrast-enhanced liver is enlarged, measuring 20 cm in length. The liver demonstrates diffusely diminished attenuation indicating steatosis. Fatty sparing is seen adjacent to the gallbladder fossa. There is no intrahepatic biliary ductal dilatation. The hepatic veins and portal veins are patent. Gallbladder: Unremarkable. Spleen: Normal in size and attenuation. Pancreas: Unremarkable. Adrenal glands: Unremarkable. Kidneys: The contrast enhanced kidneys are normal in size. There is a 10 mm obstructing calculus in the proximal ureter below the ureteropelvic junction. This is seen on image #177 at the level of L3 and causes mild to moderate left hydroureteronephrosis. There is associated left-sided perinephric stranding and trace fluid. There is heterogeneously diminished enhancement of the left kidney as compared to the right. There is an additional 2 cm nonobstructing calculus in the left upper pole. Punctate nonobstructing calculi are suspected in the left lower pole. There are at least 2 nonobstructing right renal calculi which measure up to 9 mm. No right ureteral stones or right-sided hydronephrosis is seen. Abdominal vasculature: The abdominal aorta is normal in course and caliber noting advanced atherosclerotic calcification. Bowel: There is moderate sigmoid diverticulosis without CT evidence of acute diverticulitis. No bowel obstruction is seen. The appendix is well-visualized and normal. Peritoneum: There is no intraperitoneal free air or abdominal ascites. Lymphadenopathy: None. Pelvic viscera: The bladder, uterus, and adnexa are normal as visualized. Skeletal structures: The skeletal structures are osteopenic. There is mild to moderate lumbosacral spondylosis. No lytic or blastic lesions are seen. Postsurgical change is seen in the proximal femora. IMPRESSION: 1. There is a 10 mm obstructing calculus in the left proximal ureter. This causes mild to moderate left-sided hydronephrosis. 2. Additional bilateral nonobstructing renal calculi as above. 3. There is heterogeneously diminished enhancement of the left kidney as compared to the right, likely related to obstruction and hydronephrosis. Correlate with clinical findings and urinalysis for evidence of superimposed urinary tract infection. 4. Hepatomegaly and hepatic steatosis. 5. Sigmoid diverticulosis without CT evidence of acute diverticulitis. 6. Additional findings as above. ACT 112: Negative or not required by law. Electronically signed by: Leland Tate M.D. 11/08/2023 11:01 AM Code Status & VTE Plan Code Status Full Code in the event of cardiac or respiratory arrest VTE Prophylaxis Plan VTE Prophylaxis will be ordered: Yes Supervising Physician Co-Signing Physician Notes Pt seen and examined by myself, Nancy Mason MD on the day of service. Care was coordinated with FLYNN Piper. 63yoF with 10mm obstructing kidney stone. Pt in significant pain on exam, not comfortable. Abdomen tender diffusely, left flank pain. CT abd/pelvis with 10mm obstructing stone and mild-moderate hydronephrosis pain control, antiemetics Urology consult- pt made NPO in anticipation of surgery. Hold home eliquis in anticipation of surgery. Otherwise as above.
--- OUTSIDE RECORDS SUMMARY | 2023-11-08 12:43 | External Medical Summary | Summary of Care ---
Author Name Unknown Organization [facility] Address [address] [facility] [address] [address] [place] [address] Phone [phone] Care Team Providers Care Assembly Lead Person Name Role Phone Dayanna Rik Shamika CH Primary Care Provider [phone] Reason for Visit * Reason Comments Outpatient Testing Encounter Details Date Type Department Care Team (Late st Contact Info) Description 10/26/2023 10:30 AM EST Laboratory Laboratory, [facility] [address] [facility] [address] [facility] [address] [facility] [address] Dyslipidemia, goal LDL below 160; Hypothyroidism due to acquired atrophy of thyroid; Hypertension, unspecified type Allergies Active Allergy Reactions Criticality Noted Date Comments Baby Oil High 05/15/2022 Other reaction(s): Rash Lisinopril Cough 09/10/2010 Other Allergy (See Comments) Itching 014 BABY OIL Simvastatin 01/24/2008 myalgias documented as of this encounter (statuses as of 10/26/2023) Medications Medication Sig Dispensed Refills Start Date End Date Status Tylenol PM Extra Strength 500-25 MG Oral Tablet (diphenhydrAMINE-APA P (sleep)) Take 1 Tablet by mouth at bedtime as needed for Sleep. 0 Active Loperamide HCl 2 MG Oral Tablet (Immodium (A-D)) Take 1 Tablet by mouth 4 times a day as needed for Diarrhea. 0 Active hydrOXYzine HCl 25 MG Oral Tablet TAKE 1 TO 2 TABLETS BY MOUTH EVERY 6 HOURS NEEDED FOR ITCHING 20 Tablet 5 11/04/2022 3 Active Fluocinolone Acetonide 0.01 % Otic Oil (DermOtic) Applied to the ears once daily for 2 weeks and then once weekly for maintenance. 20 mL 1 05/26/2023 Active Additional Information Patient not taking.Reported on 09/03/2023 Nystatin 719027 UNIT/GM External Powder 3 times a day. 0 05/06/2023 Active valACYclovir HCl 1 GM Oral Tablet (Valtrex)Indications :Cold sore Take 2 Tablets by mouth in the morning and 2 Tablets before bedtime. For 1 day for cold sores. 4 Tablet 11 07/29/2023 Active Additional Information Patient not taking.Reported on 10/26/2023 Apixaban 5 MG Oral Tablet (Eliquis)Indications :Essential hypertension with goal blood pressure less than 140/90 TAKE 1 TABLET BY MOUTH IN THE MORNING AND 1 TABLET BEFORE BEDTIME. 180 Tablet 0 08/12/2023 4 Active Gabapentin 600 MG Oral Tablet (Neurontin)Indicatio ns:Idiopathic polyneuropathy Take 1 Tablet by mouth at bedtime. 90 Tablet 1 09/03/2023 Active oxyBUTYnin Chloride ER 5 MG Oral Tablet Extended Release 24 Hour (Ditropan XL)Indications:Urina ry frequency Take 1 Tablet by mouth in the morning. Do not cut, crush or chew. 90 Tablet 3 09/03/2023 Active Alendronate Sodium 70 MG Oral Tablet (Fosamax)Indications :Senile osteoporosis Take 1 Tablet by mouth once a week. 12 Tablet 3 10/12/2023 Active Atorvastatin Calcium 40 MG Oral Tablet (Lipitor)Indications :Dyslipidemia, goal LDL below 160 Take 1 Tablet by mouth in the morning. 90 Tablet 3 10/12/2023 Active Sotalol HCl 80 MG Oral Tablet (Betapace) Take 1/2 a tablet by mouth in the morning and 1/2 a tablet before bedtime. 90 Tablet 2 10/12/2023 Active Losartan Potassium 50 MG Oral Tablet (Cozaar)Indications: Essential hypertension with goal blood pressure less than 140/90 Take 1 Tablet by mouth in the morning. 90 Tablet 3 10/12/2023 Active Levothyroxine Sodium 100 MCG Oral Tablet (Levoxyl) Take 1 Tablet by mouth in the morning. (at least 30 min prior to breakfast or other meds). 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 08/31/2022 Medical home patient encounter 08/18/2022 Neuropathy 02/18/2022 Body mass index (BMI) of 60.0 to 69.9 in adult 0 02/09/2022 Overview: Per Obesity protocol - Per Obesity protocol PAF (paroxysmal atrial fibrillation) 10/28/2021 Senile osteoporosis 11/10/2016 HTN, goal below 130/80 06/16/2016 Hypothyroidism due to acquired atrophy of thyroi d 07/31/2015 Dyslipidemia, goal LDL below 160 02/17/2011 Female infertility DEPRESS PSYCHOSIS-UNSPEC documented as of this encounter (statuses as of 10/26/2023) Resolved Problems Problem Noted Date Diagnosed Date Resolved Date Body mass index (BMI) of 50. 0 to 59.9 in adult 11/10/2021 02/11/2022 Overview: Per Obesity protocol Prediabetes 06/09/2021 12/11/2021 Overview: Per Prediabetes protocol Super obese 08/16/2017 08/16/2017 Bilateral hip fractures 07/30/201512/31 Age-related osteoporosis wit h current pathological fracture 07/22/2015 02/08/2018 Adult body mass index 60.0-69.9 02/17/2011 11/13/2021 Overview: Per Obesity protocol Obesity, morbid (more than 1 00 lbs over ideal weight or BMI > 40) 02/25/2010 02/17/2011 Overview: Per Obesity Taxonomy ICD-10 update of inactive term Dyslipidemia, goal to be determined 11/14/2009 02/17/2011 Overview: Per Lipid Taxonomy. Dyslipidemia, goal LDL below 160 05/08/2008 11/14/2009 Overview: Per Lipid Taxonomy. Morbid obesity, BMI not known 05/03/2007 02/25/2010 Overview: Per Obesity Taxonomy ACQUIRED HYPOTHYROID NEC 06/08/2006 ADVANCE DIRECTIVE INFORMATION 03/25/2005 02/08/2018 Overview: pt was given a brochure at a prior appt. HTN, goal below 140/90 02/03/200506/16 Mixed dyslipidemia 02/14/200310/23/ 9 Overview: Per Lipid Taxonomy OBESITY, UNSPECIFIED 007 documented as of this encounter (statuses as of 10/26/2023) Immunizations Name Administration Dates Next Due COVID-19 mRNA, LNP-s, PF, 18 + or 6-11Yrs (Moderna) 10/31/2021 COVID-19, LNP-s, No Preserve , Alexx-sucrose, Ages 12+ (Pfizer) 06/02/2022 Covid-19 Ad26, Single Dose (Aaron/J&J) 03/09/2021 Pneumococcal Conjugate Vacci ne, 20-valent ([id number]) 02/24/2023 SEASONAL INFLUENZA, PF, 6 M & Above, IM , (FLULAVAL or FLUZONE) 08/27/2023,08/25/2022,09/09/2021,2019,08/15/2019,08/16/2018 Seasonal Influenza, Quadriva lent, No Preserve, IM 08/10/2017,09/01/2016 Seasonal Influenza, Split, I IV3, With Preserve, Inj 07/30/2015,2013,10/18/2012,2010,01/20/2010,11/06/2008 TD, Preservative Free 02/14/2019 TDAP (age 11 and older)(Adacel) 05/08/2008 Zoster Vaccine Recombinant (Shingrix) 08/25/2022 ,09/09/2021 documented as of this encounter Social History Tobacco Use Types Packs/Day Years Used Date Smoking Tobacco: Never Smokeless Tobacco: Never Alcohol Use Standard Drinks/Week Comments Yes 0 (1 standard drink = 0.6 oz pur e alcohol) rare PHQ-2 Answer Date Recorded PHQ Adult Total Score 0 07/14/2022 Sex and Gender Information Value Date Recorded Sex Assigned at Female 02/14/2019 9:12 AM EDT Gender Identity Female 02/14/2019 9:12 AM EDT Sexual Orientation Straight 02/14/2019 9: 12 AM EDT Job Start Date Occupation Industry Not on file Not on file Not on file documented as of this encounter Plan of Treatment Upcoming Encounters Date Type Department Care Team (Late st Contact Info) Description 11/12/2023 1:00 PM EST Office Visit Orthopaedics [facility] [address] [place] [address] Sree Monsivais MD [address] [place] [address] 02/09/2024 9:30 AM EDT Cardiac Studies Cardiac Studies, [facility] [address] [place] [address] 03/07/2024 10:00 AM EDT Office Visit Cardiology, [facility] [address] [place] [address] Soila Esparza CRNP [address] [place] [address] 03/07/2024 1:40 PM EDT Office Visit Family Practice [facility] [place] [address] [place] [address] Rik lAan DO [address] [place] [address] Pending Results Name Type Priority Associated Diagnoses Date /Time LIPID PANEL WITH DIRECT LDL IF TG IS HIGH Lab Routine Dyslipidemia, goal LDL below 160 10/26/2023 10:14 AM EST TSH WITH FREE T4 IF INDICATED Lab Routine Hypothyroidism due to acquired atrophy of thyroid 10/26/2023 10:14 AM EST ALBUMIN / CREATININE RATIO, URINE Lab Routine Hypertension, unspecified type 10/26/2023 10:42 AM EST Scheduled Procedures Name Priority Associated Diagnoses Date/Ti me COLONOSCOPY FLEXIBLE PROXIMAL DIAGNOSTIC Recall History of colon polyps Health Maintenance Due Date Last Done Comments Albumin/Creatinine Ratio 1979 HPV/Co-Test 1991 Cervical Cancer Screening 12/25/2011 Pap Smear 12/25/2011 12/25/2008, 11/30, 01/13/2005, Additional history exists Depression Screening 07/14/2023 07/14/2022 COVID-19 Vaccine ( season) 2023 06/02/2022, 10/31/2021, 03/09/2021 GFR 02/25/2024 02/24/2023, 07/03/2022, 05/23/2022, Additional history exists Mammogram 04/16/2024 04/16/2023, 03/29, 09/20/2007 TSH 08/13/2024 08/13/2023, 01/28, 05/23/2022, Additional history exists DXA Scan 02/09/2025 02/09/2023, 10/29, 10/29/2015, Additional history exists Diabetes Screening 02/24/2026 02/24/2023, 0 02/24/2023, 06/02/2022, Additional history exists COLONOSCOPY-EVERY 5 YRS AGES 18-100 12/24/2027 12/24/2022 Lipid Panel 02/25/2028 02/24/2023, 12/30, 04/23/2022, Additional history exists DTaP,Tdap,and Td Vaccines (3 - Td or Tdap) 02/14/2029 02/14/2019, 05/08/2008 Fecal Occult Blood Test Discontinued 11/09/2013 VITAMIN D LEVEL ONCE IN A LIFETIME-USE SMARTSET# [id number] Completed 02/20/2020, 11/09/2017, 04/14/2016, Additional history exists Zoster Vaccines Completed 08/25/2022, 09/09/2021 Colonoscopy Discontinued 12/24/2022 Colorectal Cancer Screening Discontinued Pneumococcal Vaccine: Pediatrics (0 to 5 Years) and At-Risk Patients (6 to 64 Years) Aged Out 02/24/2023 No longer eligible based on patient's age to complete this topic Influenza Vaccine (FLU shot) Completed 08/27/2023, 08/25/2022, 09/09/2021, Additional history exists Cologuard Discontinued GARDASIL-HPV IMMUNIZATION SERIES Aged Out No longer eligible based on patient's age to complete this topic Hepatitis B Aged Out No longer eligi ble based on patient's age to complete this topic MENINGOCOCCAL (MENACTRA/MENVEO) Aged Out No longer eligible based on patient's age to complete this topic Sigmoidoscopy Discontinued documented as of this encounter Medical Devices Not on filedocumented as of this encounter Visit Diagnoses Diagnosis Dyslipidemia, goal LDL below 160 Other and unspecified hyperlipidemia Hypothyroidism due to acquired atrophy of thyroid Hypertension, unspecified type documented in this encounter Care Teams Assembly Lead Person Relationship Specialty Start Date End Date Rik Alan DO [address] [place] [address] PCP - General Family Medicine 04/17/16 documented as of this encounter
--- OUTSIDE RECORDS SUMMARY | 2023-11-08 12:43 | External Medical Summary ---
Author Name Unknown Address Unknown Organization K01:[facility] [address] [place] [address] Laboratory Report Ordering Provider Test Date Status KATIE SOSAVICKY 10/26/2023 10:42:22 Final Normal: <30 mg/g creatinine< br/>High: 30-300 mg/g creatinine
Very High: >300 mg/g creatinine
Nephrotic: >2200 mg/g creatinine Observation Date Value Abnormality Reference (Units ) Status Albumin, Urine 10/26/2023 10:42:22 28.82 (mg/dL) Final Creatinine, Urine 10/26/2023 10:42:22 101 (mg/dL) Final Albumin/Creatinine [Mass Ratio] in Urine 10/26/2023 10:42:22 285 Above high normal <30 (mg/g Creat) Final Performing Location [facility] [place] [facility] [address] [place] [address]
--- OUTSIDE RECORDS SUMMARY | 2023-11-08 12:43 | External Medical Summary | Summary of Care ---
Author Name Unknown Organization [facility] Address [address] [facility] [place] [address] Phone [phone] Care Team Providers Care Movers Name Role Phone Rik Alan DO Primary Care Provider [phone] Reason for Visit * Reason Onset Date Comments Order Request 10/25/2023 Encounter Details Date Type Department Care Team (Late st Contact Info) Description 10/25/2023 Telephone Family Practice [facility] [address] [facility] [place] [address] Rik Alan DO [address] [facility] [place] [address] Order Request Allergies Active Allergy Reactions Criticality Noted Date [...] Information Patient not taking.Reported on 09/03/2023 Nystatin [id number] UNIT/GM External Powder 3 times a day. [...] HTN, goal below 140/90 02/03/200506/16 Mixed dyslipidemia 02/14/2003 9 Overview: Per Lipid Taxonomy OBESITY, UNSPECIFIED 007 documented as of this encounter (statuses as of 10/26/2023) Immunizations Name Administration Dates Next Due COVID-19 mRNA, LNP-s, PF, 18 + or 6-11Yrs (Moderna) 10/31/2021 COVID-19, LNP-s, No Preserve , Alexx-sucrose, Ages 12+ (Pfizer) 06/02/2022 Covid-19 Ad26, Single Dose (Aaron/J&J) 03/09/2021 Pneumococcal Conjugate Vacci ne, 20-valent ([id number]) 02/24/2023 SEASONAL INFLUENZA, PF, 6 M & [...] on file documented as of this encounter Miscellaneous Notes * Telephone Encounter - Tammy Hurtado LPN - 10/26/2023 12:33 PM EST Submitted online via [employer] * Telephone Encounter - Rik Alan DO - 10/26/2023 10:27 AM EST Please fax order * Telephone Encounter - Heena Parrish PA-C - 10/25/2023 3:56 PM EST Order signed. * Telephone Encounter - Lexi Frank LPN - 10/25/2023 3:45 PM EST Patient states that the last time she was in the office 10/12/23 She asked Heena Parrish for a DME order for a new walker, she has had her since 2013 and it is starting to fall apart She has [employer] Ins and will need to use [employer] DME order pended Please advise * Telephone Encounter - Jessica Celaya OSA - 10/25/2023 3:39 PM EST Reason for patient's call: wants to speak to nurse about an order that was supposed to be put in Caller was transferred to [facility] at the nurse line. documented in this encounter Plan of Treatment Upcoming Encounters Date Type Department Care Team (Late st Contact Info) Description 11/04/2023 4:00 PM EST Imaging Radiology [facility] 1st Floor, [place] [address] [facility] [place] [address] 11/12/2023 1:00 PM EST Office Visit Orthopaedics [facility] [address] [facility] [place] [address] Sree Monsivais MD [address] [place] [address] 02/09/2024 9:30 AM EDT Cardiac Studies Cardiac Studies, [facility] 132 [facility] [place] [address] 03/07/2024 10:00 AM EDT Office Visit Cardiology, [facility] 132 [facility] [place] [address] Soila Esparza CRNP 132 [facility] [place] [address] 03/07/2024 1:40 PM EDT Office Visit Family Practice [facility] [place] [address] [facility] [place] [address] Rik Alan, DO [address] [facility] [place] [address] 03/20/2024 3:30 PM EDT Procedure Only Urology, [facility] 132 [facility] [place] [address] Candido Sanford MD 27 [facility] [address] [place] [address] Scheduled Procedures Name Priority Associated Diagnoses Date/Ti me COLONOSCOPY FLEXIBLE PROXIMAL DIAGNOSTIC Recall History of colon polyps Health Maintenance Due Date Last Done Comments Albumin/Creatinine Ratio 1979 HPV/Co-Test 1991 Cervical Cancer Screening 12/25/2011 Pap Smear 12/25/2011 12/25/2008, 11/30, 01/13/2005, Additional history exists Depression Screening 07/14/2023 07/14/2022 COVID-19 Vaccine ( season) 2023 06/02/2022, 10/31/2021, 03/09/2021 GFR 02/25/2024 02/24/2023, 03/2022, 05/23/2022, Additional history exists Mammogram 04/16/2024 04/16/2023, [...] D LEVEL ONCE IN A LIFETIME-USE SMARTSET# [id number] Completed 02/20/2020, 11/09/2017, 04/14/2016, Additional history exists [...] as of this encounter Visit Diagnoses Diagnosis Osteoporosis- Primary Osteoporosis, unspecified Idiopathic polyneuropathy Unspecified hereditary and idiopathic peripheral neuropathy CMC arthritis Unspecified arthropathy, hand Neuropathy Mononeuritis of unspecified site documented in this encounter Care Teams Movers Relationship Specialty Start Date End Date Rik Alan DO [address] [place] [address] PCP - General Family Medicine 04/17/16 documented as of this encounter
--- OUTSIDE RECORDS SUMMARY | 2023-11-08 12:43 | External Medical Summary | Summary of Care ---
Author Name Unknown Organization [facility] Address 100 [facility] [place] [address] Phone [phone] Care Team Providers Care Jack Tamp Operator Name Role Phone Rik Aaln DO Primary Care Provider [phone] Reason for Visit * Reason Onset Date Comments Order Request 10/25/2023 Encounter Details Date Type Department Care Team (Late st Contact Info) Description 10/25/2023 Telephone Family Practice [facility] [address] [facility] [place] [address] Rik Alan DO 200 [facility] [place] [address] Order Request Allergies Active Allergy Reactions Criticality Noted Date Comments Baby Oil High 05/15/2022 Other reaction(s): Rash Lisinopril Cough 09/10/2010 Other Allergy (See Comments) Itching 014 BABY OIL Simvastatin 01/24/2008 myalgias documented as of this encounter (statuses as of 11/05/2023) Medications Medication Sig Dispensed Refills Start Date End Date Status Tylenol PM Extra Strength 500-25 MG Oral Tablet (diphenhydrAMINE-AP AP (sleep)) Take 1 Tablet by mouth at bedtime as needed for Sleep. 0 Active Loperamide HCl 2 MG Oral Tablet (Immodium (A-D)) Take 1 Tablet by mouth 4 times a day as needed for Diarrhea. 0 Active Fluocinolone Acetonide 0.01 % Otic Oil (DermOtic) Applied to the ears once daily for 2 weeks and then once weekly for maintenance. 20 mL 1 05/26/2023 Active Additional Information Patient not taking.Reported on 09/03/2023 Nystatin [id number] UNIT/GM External Powder 3 times a day. 0 05/06/2023 Active valACYclovir HCl 1 GM Oral Tablet (Valtrex)Indication s:Cold sore Take 2 Tablets by mouth in the morning and 2 Tablets before bedtime. For 1 day for cold sores. 4 Tablet 11 07/29/2023 Active Additional Information Patient not taking.Reported on 10/26/2023 Gabapentin 600 MG Oral Tablet (Neurontin)Indicati ons:Idiopathic polyneuropathy Take 1 Tablet by mouth at bedtime. 90 Tablet 1 09/03/2023 Active oxyBUTYnin Chloride ER 5 MG Oral Tablet Extended Release 24 Hour (Ditropan XL)Indications:Urin lazara frequency Take 1 Tablet by mouth in the morning. Do not cut, crush or chew. 90 Tablet 3 09/03/2023 Active Alendronate Sodium 70 MG Oral Tablet (Fosamax)Indication s:Senile osteoporosis Take 1 Tablet by mouth once a week. 12 Tablet 3 10/12/2023 Active Atorvastatin Calcium 40 MG Oral Tablet (Lipitor)Indication s:Dyslipidemia, goal LDL below 160 Take 1 Tablet by mouth in the morning. 90 Tablet 3 10/12/2023 Active Sotalol HCl 80 MG Oral Tablet (Betapace) Take 1/2 a tablet by mouth in the morning and 1/2 a tablet before bedtime. 90 Tablet 2 10/12/2023 Active Losartan Potassium 50 MG Oral Tablet (Cozaar)Indications :Essential hypertension with goal blood pressure less than 140/90 Take 1 Tablet by mouth in the morning. 90 Tablet 3 10/12/2023 Active Levothyroxine Sodium 100 MCG Oral Tablet (Levoxyl) Take 1 Tablet by mouth in the morning. (at least 30 min prior to breakfast or other meds). 90 Tablet 3 10/12/2023 Active hydrOXYzine HCl 25 MG Oral Tablet TAKE 1 TO 2 TABLETS BY MOUTH EVERY 6 HOURS NEEDED FOR ITCHING 20 Tablet 5 11/04/2022 11/04/20 23 Apixaban 5 MG Oral Tablet (Eliquis)Indication s:Essential hypertension with goal blood pressure less than 140/90 TAKE 1 TABLET BY MOUTH IN THE MORNING AND 1 TABLET BEFORE BEDTIME. 180 Tablet 0 08/12/2023 11/04/20 Discontinue d(Refill) documented as of this encounter (statuses as of 11/05/2023) Active Problems Problem Noted Date Diagnosed Date FELTCHER (acute kidney injury) 05/10/2023 Idiopathic polyneuropathy 05/10/2023 [...] as of this encounter (statuses as of 11/05/2023) Resolved Problems Problem Noted Date Diagnosed Date [...] as of this encounter (statuses as of 11/05/2023) Immunizations Name Administration Dates Next Due COVID-19 mRNA, LNP-s, PF, 18 + or 6-11Yrs (Moderna) 10/31/2021 COVID-19, LNP-s, No Preserve , Alexx-sucrose, Ages 12+ (Pfizer) 06/02/2022 Covid-19 Ad26, Single Dose (Aaron/J&J) 03/09/2021 Pneumococcal Conjugate Vacci ne, 20-valent ([id number]) 02/24/2023 SEASONAL INFLUENZA, PF, 6 M & [...] encounter Miscellaneous Notes * Telephone Encounter - Lucille Chowdhury OSA - 11/05/2023 1:52 PM EST Pt is calling to say the request for the walker fax to [employer] on 10/26/23 has not been received. Please refax order. Call [phone] for more information. * Telephone Encounter - Tammy Hurtado LPN - 10/26/2023 12:33 PM EST Submitted online via [employer] * Telephone Encounter - Rik Alan DO - 10/26/2023 10:27 AM EST Please fax order * Telephone Encounter - Heena Parrish PA-C - 10/25/2023 3:56 PM EST Order signed. * Telephone Encounter - Kayley Frank LPN - 10/25/2023 3:45 PM EST Patient states that the last time she was in the office 10/12/23 She asked Heena Parrish for a DME order for a new walker, she has had her since 2014 and it is starting to fall apart She has [employer] Ins and will need to use [employer] DME order pended Please advise * Telephone Encounter - Jessica Celaya OSA - 10/25/2023 3:39 PM EST Reason for patient's call: wants to speak to nurse about an order that was supposed to be put in Caller was transferred to [facility] at the nurse line. documented in this encounter Plan of Treatment Upcoming Encounters Date Type Department Care Team (Late st Contact Info) Description 11/12/2023 1:00 PM EST Office Visit Orthopaedics [facility] [address] [place] [address] Sree Monsivais MD [address] [place] [address] 02/09/2024 9:30 AM EDT Cardiac Studies Cardiac Studies, [facility] [address] [place] [address] 03/07/2024 10:00 AM EDT Office Visit Cardiology, [facility] [address] [place] [address] Soila Esparza CRNP [address] [place] [address] 03/07/2024 1:40 PM EDT Office Visit Family Practice [facility] [place] [address] [facility] [place] [address] Rik Alan, 200 [facility] [place] [address] 03/20/2024 3:30 PM EDT Procedure Only Urology, [facility] [address] [place] [address] Candido Sanford MD 27 [facility] [place] [address] [place] [address] Scheduled Procedures Name Priority Associated Diagnoses Date/Ti me COLONOSCOPY FLEXIBLE PROXIMAL DIAGNOSTIC Recall History of colon polyps Health Maintenance Due Date Last Done Comments HPV/Co-Test 1991 Cervical Cancer Screening 12/25/2011 Pap Smear 12/25/2011 12/25/2008, 11/30, 01/13/2005, Additional history exists Depression Screening 07/14/2023 07/14/2022 COVID-19 Vaccine ( season) 2023 06/02/2022, 10/31/2021, 03/09/2021 Mammogram 04/16/2024 04/16/2023, 03/29, 09/20/2007 GFR 10/26/2024 10/26/2023, 01/28, 06/02/2022, Additional history exists TSH 10/26/2024 10/26/2023, 07/30, 02/24/2023, Additional history exists DXA Scan 02/09/2025 02/09/2023, 10/29, 10/29/2015, Additional history exists Diabetes Screening 02/24/2026 02/24/2023, 0 02/24/2023, 06/02/2022, Additional history exists Albumin/Creatinine Ratio 10/26/2026 10/26/2023 COLONOSCOPY-EVERY 5 YRS AGES 18-100 12/24/2027 12/24/2022 Lipid Panel 10/26/2028 10/26/2023, 01/28, 01/13/2023, Additional history exists DTaP,Tdap,and Td Vaccines (3 - Td or Tdap) 02/14/2029 02/14/2019, 05/08/2008 Fecal Occult Blood Test Discontinued 11/09/2013 VITAMIN D LEVEL ONCE IN A LIFETIME-USE SMARTSET# [id number] Completed 02/20/2020, 11/09/2017, 04/14/2016, Additional history exists [...] site documented in this encounter Care Teams Jack Tamp Operator Relationship Specialty Start Date End Date Rik Alan DO [address] [place] [address] PCP - General Family Medicine 04/17/16 documented as of this encounter
--- OUTSIDE RECORDS SUMMARY | 2023-11-08 12:43 | External Medical Summary | Summary of Care ---
Author Name Unknown Organization [facility] Address [address] [address] Phone [phone] Care Team Providers Care Photoresist Contact Printer Name Role Phone Saud Alane Shamika CH Primary Care Provider [phone] Reason for Visit * Reason Comments Medication Refill Encounter Details Date Type Department Care Team (Late st Contact Info) Description 11/04/2023 Refill Family Practice [facility] [address] [facility] [place] [address] Kassandra Farfan PA-C [address] [facility] [place] [address] Essential hypertension with goal blood pressure less than 140/90 Allergies Active Allergy Reactions Criticality Noted Date Comments Baby Oil High 05/15/2022 Other reaction(s): Rash Lisinopril Cough 09/10/2010 Other Allergy (See Comments) Itching 014 BABY OIL Simvastatin 01/24/2008 myalgias documented as of this encounter (statuses as of 11/04/2023) Medications Medication Sig Dispensed Refills Start Date [...] NEEDED FOR ITCHING 20 Tablet 5 11/04/2022 Active Fluocinolone Acetonide 0.01 % Otic Oil (DermOtic) Applied to the ears once daily for 2 weeks and then once weekly for maintenance. 20 mL 1 05/26/2023 Active Additional Information Patient not taking.Reported on 09/03/2023 Nystatin 213609 UNIT/GM External Powder 3 times a day. [...] other meds). 90 Tablet 3 10/12/2023 Active Myrbetriq 50 MG Oral Tablet Extended Release 24 Hour (Mirabegron ER) Take 1 Tablet by mouth in the morning. 30 Tablet 6 10/26/2023 Active Apixaban 5 MG Oral Tablet (Eliquis)Indication s:Essential hypertension with goal blood pressure less than 140/90 TAKE 1 TABLET BY MOUTH IN THE MORNING AND 1 TABLET BEFORE BEDTIME. 180 Tablet 0 11/04/2023 4 Active Apixaban 5 MG Oral Tablet (Eliquis)Indication s:Essential hypertension with goal blood pressure less than 140/90 TAKE 1 TABLET BY MOUTH IN THE MORNING AND 1 TABLET BEFORE BEDTIME. 180 Tablet 0 08/12/2023 3 Discontinu ed(Refill) Hospital, Clinic, or Other Facility Administered Medication Ordered Dose Route Frequency Start Date End Date Status sodium chloride 0.9 % flush/inj 10 mL 10 mL IV PUSH ONCE 11/04/2023 11/05/2023 Active documented as of this encounter (statuses as of 11/04/2023) Active Problems Problem Noted Date Diagnosed Date [...] as of this encounter (statuses as of 11/04/2023) Resolved Problems Problem Noted Date Diagnosed Date [...] HTN, goal below 140/90 02/03/200506/16 Mixed dyslipidemia 02/14/200310/23/200 9 Overview: Per Lipid Taxonomy OBESITY, UNSPECIFIED 007 documented as of this encounter (statuses as of 11/04/2023) Immunizations Name Administration Dates Next Due COVID-19 mRNA, LNP-s, PF, 18 + or 6-11Yrs (Moderna) 10/31/2021 COVID-19, LNP-s, No Preserve , Alexx-sucrose, Ages 12+ (Pfizer) 06/02/2022 Covid-19 Ad26, Single Dose (Aaron/J&J) 03/09/2021 Pneumococcal Conjugate Vacci ne, 20-valent ([id number]) 02/24/2023 SEASONAL INFLUENZA, PF, 6 M & [...] encounter Miscellaneous Notes * Telephone Encounter - Kassandra Farfan PA-C - 11/04/2023 6:30 PM ESTSigned Prescriptions: Disp Refills Apixaban 5 MG Oral Tablet (Eliquis) 180 Ta*0 Sig: TAKE 1 TABLETBY MOUTH IN THE MORNING AND 1 TABLET BEFORE BEDTIME.Authorizing Provider: KASSANDRA FARFAN documented in this encounter Plan of Treatment Upcoming Encounters Date Type Department Care Team (Late st Contact Info) Description 11/12/2023 1:00 PM EST Office Visit Orthopaedics [facility] [address] [facility] [place] [address] Sree Monsivais MD [address] [place] [address] 02/09/2024 9:30 AM EDT Cardiac Studies Cardiac Studies, [facility] [address] [facility] [place] [address] 03/07/2024 10:00 AM EDT Office Visit Cardiology, [facility] [address] [facility] [place] [address] Soila Esparza CRNP [address] [facility] [place] [address] 03/07/2024 1:40 PM EDT Office Visit Family Practice [facility] [address] [facility] [address] [place] [address] Rik Alan, DO [address] [facility] [place] [address] 03/20/2024 3:30 PM EDT Procedure Only Urology, [facility] [address] [facility] [place] [address] Candido Sanford MD [address] [facility] [address] [place] [address] Scheduled Procedures Name Priority Associated Diagnoses Date/Ti [...] D LEVEL ONCE IN A LIFETIME-USE SMARTSET# [id number] Completed 02/20/2020, 11/09/2017, 04/14/2016, Additional history exists [...] as of this encounter Visit Diagnoses Diagnosis Essential hypertension with goal blood pressure less than 140/90 documented in this encounter Care Teams Photoresist Contact Printer Relationship Specialty Start Date End Date Rik Alan DO [facility] [place] [address] PCP - General Family Medicine 04/17/16 documented as of this encounter
--- OUTSIDE RECORDS SUMMARY | 2023-11-08 12:43 | External Medical Summary | Summary of Care ---
Author Name Unknown Organization [facility] Address [address] [facility] [place] [address] Phone [phone] Care Team Providers Care Sales And Leasing Agent Name Role Phone DayannaRik Shamika CH Primary Care Provider [phone] Reason for Visit * Reason Comments Outpatient Testing Encounter Details Date Type Department Care Team (Late st Contact Info) Description 10/26/2023 10:30 AM EST Laboratory Laboratory, [facility] [address] [facility] [address] [facility] [address] [facility] [address] Dyslipidemia, goal LDL below 160; Hypothyroidism due to acquired atrophy of thyroid; Hypertension, unspecified type; Hematuria, gross Allergies Active Allergy Reactions Criticality Noted Date Comments Baby Oil High 05/15/2022 Other reaction(s): Rash Lisinopril Cough 09/10/2010 Other Allergy (See Comments) Itching 014 BABY OIL Simvastatin 01/24/2008 myalgias documented as of this encounter (statuses as of 11/01/2023) Medications Medication Sig Dispensed Refills Start Date [...] Information Patient not taking.Reported on 09/03/2023 Nystatin [id number] UNIT/GM External Powder 3 times a day. [...] as of this encounter (statuses as of 11/01/2023) Active Problems Problem Noted Date Diagnosed Date [...] as of this encounter (statuses as of 11/01/2023) Resolved Problems Problem Noted Date Diagnosed Date [...] as of this encounter (statuses as of 11/01/2023) Immunizations Name Administration Dates Next Due COVID-19 mRNA, LNP-s, PF, 18 + or 6-11Yrs (Moderna) 10/31/2021 COVID-19, LNP-s, No Preserve , Alexx-sucrose, Ages 12+ (Pfizer) 06/02/2022 Covid-19 Ad26, Single Dose (Aaron/J&J) 03/09/2021 Pneumococcal Conjugate Vacci ne, 20-valent ([id number]) 02/24/2023 SEASONAL INFLUENZA, PF, 6 M & [...] on file documented as of this encounter Progress Notes * Heidy Alfaro LPN - 11/01/2023 12:57 PM EST Lab letter sent. documented in this encounter Miscellaneous Notes * Result Encounter Note - Soila Esparza CRNP - 10/29/2023 2:33 PM EST Lipid levels are stable. LDL still slightly above target, but significant improvement from one yearago. Continue current medications. * Result Encounter Note - Rik Alan DO - 10/29/2023 9:05 AM EST Letter: Your urine shows some protein sneaking through from your kidneys. I recommend that you keep workingon adding water to help prevent kidney failure in the future. documented in this encounter Plan of Treatment Upcoming Encounters Date Type Department Care Team (Late st Contact Info) Description 11/04/2023 4:00 PM EST Imaging Radiology [address], [address] [place] [address] 11/12/2023 1:00 PM EST Office Visit Orthopaedics [facility] [address] [facility] [place] [address] Sree Monsivais MD [address] [place] [address] 02/09/2024 9:30 AM EDT Cardiac Studies Cardiac Studies, [facility] [address] [facility] [place] [address] 03/07/2024 10:00 AM EDT Office Visit Cardiology, [facility] [address] [facility] [place] [address] Soila Esparza CRNP [address] [place] [address] 03/07/2024 1:40 PM EDT Office Visit Family Practice [facility] [address] [facility] [address] [place] [address] Rik Alan, DO [address] [facility] [place] [address] 03/20/2024 3:30 PM EDT Procedure Only Urology, [facility] [address] [facility] [place] [address] Candido Sanford MD [address] [facility] [address] [place] [address] Scheduled Procedures Name Priority Associated Diagnoses Date/Ti [...] D LEVEL ONCE IN A LIFETIME-USE SMARTSET# [id number] Completed 02/20/2020, 11/09/2017, 04/14/2016, Additional history exists [...] Not on filedocumented as of this encounter Procedures Procedure Name Priority Date/Time Associated Diagnosis Comments ALBUMIN / CREATININE RATIO, URINE Routine 10/26/2023 10:42 AM EST Hypertension, unspecified type TSH WITH FREE T4 IF INDICATED Routine 10/26/2023 10:14 AM EST Hypothyroidism due to acquired atrophy of thyroid LIPID PANEL WITH DIRECT LDL IF TG IS HIGH Routine 10/26/2023 10:14 AM EST Dyslipidemia, goal LDL below 160 CREATININE Routine 10/26/2023 10:14 AM EST Hematuria, gross documented in this encounter Results * (ABNORMAL) ALBUMIN / CREATININE RATIO, URINE (10/26/2023 10:42 AM EST) Albumin, Random Urine 28.82 mg/dL 10/26/2023 8:19 PM EST [facility] [place] Creatinine, Random Urine 101 mg/dL 10/26/2023 8:19 PM EST [facility] [place] Albumin / Creatinine Ratio, Urine 285(H) <30 mg/g Creat 10/26/2023 8:19 PM EST [facility] [place] Urine Urine specimen obtained by clean catch procedure / Unknown Non-blood Collection / Unknown 10/26/2023 10:42 AM EST 10/26/2023 10:42 AM EST [facility]ORY [facility] [place] - 10/26/2023 8:19 PM EST Normal: <30 mg/g creatinine High: 30-300 mg/g creatinine Very High: >300 mg/g creatinine Nephrotic: >2200 mg/g creatinine Rik Alan DO LAB URINE ORDERABLE S LAB[facility]ORY [facility] [place] [address] [place] [address] * CREATININE (10/26/2023 10:14 AM EST) Creatinine 0.9 0.5 - 1.0 mg/dL 10/26/2023 7:48 PM EST [facility] [place] Estimated Glomerular Filtration Rate 72 >=60 mL/min 10/26/2023 7:48 PM EST LABORATORY [facility] Comment:eGFR is calculated b ased on the CKD-EPI 2020 equation Blood Venous blood specimen / Unknown Venipuncture / Unknown 10/26/2023 10:14 AM EST 10/26/2023 10:14 AM EST Candido Sanford MD LAB BLOOD ORDERA BLES Performing Organization Address City/[facility] [address]/ZIP Co de Phone Number LAB[facility]ATORY [facility] [place] [place] [address] [place] [address] * TSH WITH FREE T4 IF INDICATED (10/26/2023 10:14 AM EST) TSH 3.55 0.27 - 4.20 uIU/mL 10/26/2023 8:49 PM EST [facility]ORY [facility] [place] Blood Venous blood specimen / Unknown Venipuncture / Unknown 10/26/2023 10:14 AM EST 10/26/2023 10:14 AM EST Rik Alan DO LAB BLOOD ORDERABLE S Performing Organization Address City/[facility] [address]/ZIP Co de Phone Number LAB[facility]ATORY [facility] [place] [place] [address] [place] [address] * (ABNORMAL) LIPID PANEL WITH DIRECT LDL IF TG IS HIGH (10/26/2023 10:14 AM EST) Triglycerides 160 <=174 mg/dL 10/26/2023 7:48 PM EST LAB[facility]ORY [facility] [place] Comment: Triglyceride Reference Ranges (mg/dL): <150 Acceptable 150-174 Borderline high 175-499 High >=500 Very high Cholesterol 197 <200 mg/dL 10/26/2023 7:48 PM EST [facility]ORY [facility] [place] Comment: Total Cholesterol Reference Ranges (mg/dL): <200 Desirable 200-239 Borderline high >=240 High HDL Cholesterol 37(L) >49 mg/dL 7:48 PM EST LAB[facility]ORY [facility] [place] Comment: HDL Cholesterol Reference Ranges (mg/dL): >=60 High (Desirable) <50 Low (Undesirable) For Females <40 Low (Undesirable) For Males Non-HDL Cholesterol 160(H) <=159 mg/dL 10/26/2023 7:48 PM EST LAB[facility]ORY [facility] [place] Comment: Non-HDL Cholesterol Reference Range (mg/dL): <100 Target level for high risk ASCVD patient <130 Optimal for general population 130-159 Near optimal for general population 160-189 Borderline High 190-219 High >=220 Very High LDL Cholesterol 128 <=129 mg/dL 10/26/2023 7:48 PM EST LAB[facility]ORY [facility] [place] Comment: LDL Cholesterol Reference Ranges (mg/dL): <70 Target level for high risk ASCVD patient <100 Optimal for general population 100-129 Near optimal for general population 130-159 Borderline high 160-189 High >=190 Very high Blood Venous blood specimen / Unknown Venipuncture / Unknown 10/26/2023 10:14 AM EST 10/26/2023 10:14 AM EST Soila PRUETT LAB BLOOD ORDER ANDREW LAB[facility]ATORY [facility] [place] [address] [place] [address] documented in this encounter Visit Diagnoses Diagnosis Dyslipidemia, goal LDL below 160 Other and unspecified hyperlipidemia Hypothyroidism due to acquired atrophy of thyroid Hypertension, unspecified type Hematuria, gross Gross hematuria documented in this encounter Care Teams Sales And Leasing Agent Relationship Specialty Start Date End Date Rik Alan DO [address] [place] [address] PCP - General Family Medicine 04/17/16 documented as of this encounter
--- OUTSIDE RECORDS SUMMARY | 2023-11-08 12:43 | External Medical Summary | Summary of Care ---
Author Name Unknown Organization [facility] Address [address] [address] Phone [phone] Care Team Providers Care Automotive Professional Name Role Phone Sheila Alan Primary Care Provider [phone] [phone] Reason for Referral * Precert (Within 10 days (routine)) - Pending Review Specialty Diagnoses / Procedures Referred By Contriddhi t Referred To Contact Radiology Diagnoses Hematuria, gross Procedures CT ABD/PELVIS W WO IV CONTRAST - WO ORAL CONT Candido Sanford MD [address] [place] [address] [place] [address] Referral ID Status Reason Start Date Expiration Date V isits Requested Visits Authorized [id number] Pending Review 10/26/2023 999 999 Reason for Visit * Reason Comments NEW PATIENT * Evaluate & Treat - Unlimited Visits (Within 30 days (routine)) - Closed Specialty Diagnoses / Procedures Referred By Devan t Referred To Contact Urology Diagnoses Urinary incontinence, unspecified type Keeley Zambrano PA-C [address] [facility] [place] [address] Referral ID Status Reason Start Date Expiration Date V isits Requested Visits Authorized [id number] Closed Specialty Services Required 09/23/[phone] Encounter Details Date Type Department Care Team (Late st Contact Info) Description 10/26/2023 11:00 AM EST Office Visit Urology, [facility] [place] [address] [place] [phone] Candido Sanford MD [address] [facility] [address] [place] [address] Hematuria, gross*; Urge incontinence Allergies Active Allergy Reactions Criticality Noted Date [...] Information Patient not taking.Reported on 09/03/2023 Nystatin 285413 UNIT/GM External Powder 3 times a day. [...] TABLET BEFORE BEDTIME. 180 Tablet 0 08/12/2023 Active Gabapentin 600 MG Oral Tablet (Neurontin)Indicatio [...] the morning. 30 Tablet 6 10/26/2023 Active documented as of this encounter (statuses [...] (Aaron/J&J) 03/09/2021 Pneumococcal Conjugate Vacci ne, 20-valent ([id number]) 02/24/2023 SEASONAL INFLUENZA, PF, 6 M & [...] as of this encounter Progress Notes * Candido Sanford MD - 10/26/2023 11:00 AM EST [id number] PCP: SHEILA ALAN [address] [place] [address] [phone] Dipesh Cox is a 62 year old female, who presents in referral for evaluation of urinary incontinence. She notes nocturia x 6-7, urgency and urge incontinence. She feels this is causing a rash on her legs when urine runs down the legs. Patient notes gross hematuria. Records from mid from are reviewed. Urolithiasis: Patient is being seen for stone disease today. Problem has been present for years.. They have been seen in the ER for their stones previously. Severity is mild Problem is about the same. Patient has had the following imaging done: CT scan. In the past they have had no surgery for stoneto manage their stones. Stone composition is unknown. Previous evaluation was done by urologist. Urinary Incontinence: Patient is being seen for urinary incontinence. Problem has been present for years. Severity is high. Problem is getting worse. Urinary incontinence is urge incontinence. They are using no pads a day. They have used oxybutynin XL 5 mg. Current Outpatient Medications Medication Sig Dispense Refill Tylenol PM Extra Strength 500-25 MG Oral Tablet (diphenhydrAMINE-APAP (sleep)) Take 1 Tablet by mouth at bedtime as needed for Sleep. Loperamide HCl 2 MG Oral Tablet (Immodium (A-D)) Take 1 Tablet by mouth 4 times a day as needed forDiarrhea. hydrOXYzine HCl 25 MG Oral Tablet TAKE 1 TO 2 TABLETS BY MOUTH EVERY 6 HOURS NEEDED FOR ITCHING 20 Tablet 5 Fluocinolone Acetonide 0.01 % Otic Oil (DermOtic) Applied to the ears once daily for 2 weeks and then once weekly for maintenance. (Patient not taking: Reported on 09/03/2023) 20 mL 1 Nystatin 518422 UNIT/GM External Powder 3 times a day. valACYclovir HCl 1 GM Oral Tablet (Valtrex) Take 2 Tablets by mouth in the morning and 2 Tablets before bedtime. For 1 day for cold sores. 4 Tablet 11 Apixaban 5 MG Oral Tablet (Eliquis) TAKE 1 TABLET BY MOUTH IN THE MORNING AND 1 TABLET BEFORE BEDTIME. 180 Tablet 0 Gabapentin 600 MG Oral Tablet (Neurontin) Take 1 Tablet by mouth at bedtime. 90 Tablet 1 oxyBUTYnin Chloride ER 5 MG Oral Tablet Extended Release 24 Hour (Ditropan XL) Take 1 Tablet by mouth in the morning. Do not cut, crush or chew. 90 Tablet 3 Alendronate Sodium 70 MG Oral Tablet (Fosamax) Take 1 Tablet by mouth once a week. 12 Tablet 3 Atorvastatin Calcium 40 MG Oral Tablet (Lipitor) Take 1 Tablet by mouth in the morning. 90 Tablet 3 Sotalol HCl 80 MG Oral Tablet (Betapace) Take 1/2 a tablet by mouth in the morning and 1/2 a tabletbefore bedtime. 90 Tablet 2 Losartan Potassium 50 MG Oral Tablet (Cozaar) Take 1 Tablet by mouth in the morning. 90 Tablet 3 Levothyroxine Sodium 100 MCG Oral Tablet (Levoxyl) Take 1 Tablet by mouth in the morning. (at least30 min prior to breakfast or other meds). 90 Tablet 3 No current facility-administered medications for this visit. Review of patient's allergies indicates: Allergen Reactions Baby Oil Other reaction(s): Rash Lisinopril Cough Other Allergy (See Comments) Itching BABY OIL Zocor [Simvastatin] myalgias Social History: Social History Tobacco Use Smoking status: Never Smokeless tobacco: Never Substance Use Topics Alcohol use: Yes Comment: rare Vaping/E-Cigarette Use Vaping/E-Cigarette Use Never User Vaping/E-Cigarette Substances Nicotine No Other No Flavoring No THC No Cannabidiol (CBD) No Vaping/E-Cigarette Devices Disposable No Pre-filled or Refillable Cartridge No Refillable Tank No Pre-filled Pod No Family History Problem Relation Age of Onset Stroke Mother Cervical Cancer Mother Diabetes Father Hypertension Father Arthritis Sister No Known Problems Sister No Known Problems Sister No Known Problems Brother Psoriasis Aunt (Maternal) great aunt Skin cancer No significant family history Breast Cancer No significant family history Colon cancer No significant family history Ovarian cancer No significant family history Past Surgical History: Procedure Laterality Date COLONOSCOPY, DIAGNOSTIC (RECTUM) 12/24/2022 benign adenomatous polyp, diverticulosis, repeat 5 yrs / [facility] CYSTOSCOPY 03/18/2005 under anesthesia CYSTOSCOPY 03/24/2005 stent removal REPAIR HIP FRACTURE(S), W/FIXATION Bilateral 07/05/2015 Dr. Ratliff Past Medical History: Diagnosis Date Calculus of kidney Depressive disorder, not elsewhere classified Depression Female infertility Infertility, Female HLD (hyperlipidemia) HTN, goal to be determined Hypothyroidism Obesity, BMI not known Obesity Other psoriasis Psoriasis Patient Active Problem List Diagnosis Code Female infertility N97.9 DEPRESS PSYCHOSIS-UNSPEC F32.9 Dyslipidemia, goal LDL below 160 E78.5 Hypothyroidism due to acquired atrophy of thyroid E03.4 HTN, goal below 130/80 I10 Senile osteoporosis M81.0 PAF (paroxysmal atrial fibrillation) ([facility]) I48.0 Body mass index (BMI) of 60.0 to 69.9 in adult ([facility]) Z68.44 Neuropathy G62.9 Medical home patient encounter Z00.8 Tachy-brennan syndrome ([facility]) I49.5 Urinary incontinence R32 Other hereditary and idiopathic neuropathies G60.8 FLETCHER (acute kidney injury) ([facility]) N17.9 Idiopathic polyneuropathy G60.9 Osteoporosis M81.0 Constitutional: (-) fever and (-) chills Eyes: (+) corrective lenses Abdominal/GI: (+) constipation or change in bowel pattern Female : (+) see HPI Musculoskeletal: (+) joint pain Neurology: (+) loss of balance Psychiatry: (-) negative: no depression or anxiety Physical Exam Constitutional: General: She is not in acute distress. Appearance: She is obese. She is not ill-appearing or toxic-appearing. Comments: Using walker HENT: Head: Normocephalic and atraumatic. Right Ear: External ear normal. Left Ear: External ear normal. Nose: Nose normal. Mouth/Throat: Mouth: Mucous membranes are moist. Eyes: Extraocular Movements: Extraocular movements intact. Cardiovascular: Pulses: Normal pulses. Pulmonary: Effort: Respiratory distress (Pickwickian) present. Abdominal: General: Abdomen is protuberant. Palpations: Abdomen is soft. Musculoskeletal: Cervical back: No rigidity. Right lower leg: Edema present. Left lower leg: Edema present. Skin: Coloration: Skin is not pale. Neurological: Motor: Weakness present. Gait: Gait abnormal. Psychiatric: Mood and Affect: Mood normal. Behavior: Behavior normal. Thought Content: Thought content normal. Impression/Plan: 62 yo female with gross hematuria, urinary incontinence. Seen baseline constipation will add Myrbetriq for her LUTS. Will proceed with hematuria workup withCT urogram and cystoscopy. If her meds are too pricey, can consider alternative depending on what'scovered. Contact us with difficulties, will see at time of cystoscopy. Above content is personally reviewed. Patient vocalizes good understanding of the treatment plan. Candido Sanford MD 9:29 AM 10/26/2023 documented in this encounter Nursing Notes * Kenia Guzman LPN - 10/26/2023 10:43 AM EST New pt. Presents alone. Patient states having blood in urine past two days, nocturia x 5-6, daytimefrequency, urgency, incontinence. Taking oxybutynin. documented in this encounter Plan of Treatment Upcoming Encounters Date Type Department Care Team (Late st Contact Info) Description 11/04/2023 4:00 PM EST Imaging Radiology [facility] [address] [place] [address] 11/12/2023 1:00 PM EST Office Visit Orthopaedics [facility] [place] [address] [place] [address] Sree Monsivais MD [address] [place] [address] 02/09/2024 9:30 AM EDT Cardiac Studies Cardiac Studies, [facility] [place] [address] [place] [address] 03/07/2024 10:00 AM EDT Office Visit Cardiology, [facility] [place] [address] [place] [address] Soila Esparza CRNP [address] [place] [address] 03/07/2024 1:40 PM EDT Office Visit [facility] [address] [place] [address] Sheila Alan, DO [address] [place] [address] 03/20/2024 3:30 PM EDT [facility] [place] [address] [place] [address] Candido Sanford MD [address] [place] [address] [place] [address] Scheduled Orders Name Type Priority Associated Diagnoses Orde r Schedule CT ABD/PELVIS W WO IV CONTRAST - WO ORAL CONT Medical Imaging Routine Hematuria, gross Expected: 10/26/2023, Expires: 11/25/2024 CREATININE Lab Routine Hematuria, gross Expected: 10/26/2023, Expires: 10/26/2024 Scheduled Procedures Name Priority Associated Diagnoses Date/Ti me COLONOSCOPY FLEXIBLE PROXIMAL DIAGNOSTIC Recall History of colon polyps Health Maintenance Due Date Last Done Comments Albumin/Creatinine Ratio 1979 HPV/Co-Test 1991 Cervical Cancer Screening 12/25/2011 Pap Smear 12/25/2011 12/25/2008, 11/30, 01/13/2005, Additional history exists Depression Screening 07/14/2023 07/14/2022 COVID-19 Vaccine ( season) 2023 06/02/2022, 10/31/2021, 03/09/2021 GFR 02/25/2024 02/24/2023, 07/0 03/2022, 05/23/2022, Additional history exists Mammogram 04/16/2024 [...] D LEVEL ONCE IN A LIFETIME-USE SMARTSET# [id number] Completed 02/20/2020, 11/09/2017, 04/14/2016, Additional history exists [...] as of this encounter Visit Diagnoses Diagnosis Hematuria, gross- Primary Gross hematuria Urge incontinence documented in this encounter Care Teams Automotive Professional Relationship Specialty Start Date End Date Sheila Alan DO [facility] [place] [address] PCP - General Family Medicine 04/17/16 documented as of this encounter
--- OUTSIDE RECORDS SUMMARY | 2023-11-08 12:43 | External Medical Summary | Summary of Care ---
Author Name Unknown Organization [facility] Address [address] [facility] [place] [address] Phone [phone] Care Team Providers Care Lime Mixer Tender Name Role Phone Rik Alan DO Primary Care Provider [phone] Reason for Visit * Reason Onset Date Comments Order Request 10/25/2023 Encounter Details Date Type Department Care Team (Late st Contact Info) Description 10/25/2023 Telephone Family Practice [facility] [address] [facility] [place] [address] Rik Alan DO [address] [facility] [place] [address] Order Request Allergies Active Allergy Reactions Criticality [...] Information Patient not taking.Reported on 09/03/2023 Nystatin [id number] UNIT/GM External Powder 3 times a day. [...] (Aaron/J&J) 03/09/2021 Pneumococcal Conjugate Vacci ne, 20-valent ([id number]) 02/24/2023 SEASONAL INFLUENZA, PF, 6 M & [...] the request for the walker fax to [employer] on 10/26/23 has not been received. Please refax order. Call [phone] for more information. * Telephone Encounter - Tammy Hurtado LPN - 10/26/2023 12:33 PM EST Submitted online via [employer] * Telephone Encounter - Rik Alan DO [...] 11/12/2023 1:00 PM EST Office Visit Orthopaedics [facility] [address] [place] [address] Sree Monsivais MD [address] [place] [address] 02/09/2024 9:30 AM EDT Cardiac Studies Cardiac Studies, [facility] [address] [place] [address] 03/07/2024 10:00 AM EDT Office Visit Cardiology, [facility] [address] [place] [address] Soila Esparza CRNP [address] [place] [address] 03/07/2024 1:40 PM EDT Office Visit Family Practice [facility] [place] [address] [facility] [place] [address] Rik Alan, [address] [facility] [place] [address] 03/20/2024 3:30 PM EDT Procedure Only Urology, [facility] [address] [place] [address] Candido Sanford MD [address] [facility] [place] [address] [place] [address] Scheduled Procedures Name Priority Associated Diagnoses Date/Ti [...] D LEVEL ONCE IN A LIFETIME-USE SMARTSET# [id number] Completed 02/20/2020, 11/09/2017, 04/14/2016, Additional history exists [...] site documented in this encounter Care Teams Lime Mixer Tender Relationship Specialty Start Date End Date Rik Alan DO [address] [place] [address] PCP - General Family Medicine 04/17/16 documented as of this encounter
--- OUTSIDE RECORDS SUMMARY | 2023-11-08 12:43 | External Medical Summary | Summary of Care ---
Author Name Unknown Organization [facility] Address [address] [facility] [place] [address] Phone [phone] Care Team Providers Care Core Feeder Name Role Phone Rik Alan DO Primary Care Provider [phone] Reason for Visit * Reason Onset Date Comments Order Request 10/25/2023 Encounter Details Date Type Department Care Team (Late st Contact Info) Description 10/25/2023 Telephone Family Practice [facility] [address] [facility] [place] [address] Rik Alan DO [address] [facility] [place] [address] Order Request Allergies Active Allergy Reactions Criticality [...] Information Patient not taking.Reported on 09/03/2023 Nystatin [id number] UNIT/GM External Powder 3 times a day. 0 05/06/2023 Active valACYclovir HCl 1 GM Oral Tablet (Valtrex)Indications :Cold sore Take 2 Tablets by mouth in the morning and 2 Tablets before bedtime. For 1 day for cold sores. 4 Tablet 11 07/29/2023 Active Apixaban 5 MG Oral Tablet (Eliquis)Indications :Essential [...] (Aaron/J&J) 03/09/2021 Pneumococcal Conjugate Vacci ne, 20-valent ([id number]) 02/24/2023 SEASONAL INFLUENZA, PF, 6 M & [...] encounter Miscellaneous Notes * Telephone Encounter - Rik Alan DO [...] Description 10/26/2023 10:30 AM EST Laboratory Laboratory, [facility] [address] [facility] [place] [id number] BirchBhavya brady [facility] [address] [facility] [place] [address] Dyslipidemia, goal LDL below 160; Hypothyroidism due to acquired atrophy of thyroid 10/26/2023 11:00 AM EST Office Visit Urology, [facility] 132 [facility] [place] [address] Candido Sanford MD [address] [place] [address] [place] [phone] 11/12/2023 1:00 PM EST Office Visit Orthopaedics [facility] [address] [facility] [place] [address] Sree Monsivais MD [address] [facility] [place] [address] 02/09/2024 9:30 AM EDT Cardiac Studies Cardiac Studies, [facility] [address] [facility] [place] [address] 03/07/2024 10:00 AM EDT Office Visit Cardiology, [facility] [address] [facility] [place] [address] Soila Esparza CRNP 132 [facility] [place] [address] 03/07/2024 1:40 PM EDT Office Visit Family Practice [facility] 200 [facility] [place] [address] Rik Alan, DO [address] [facility] [place] [address] Scheduled Procedures Name Priority Associated Diagnoses Date/Ti [...] D LEVEL ONCE IN A LIFETIME-USE SMARTSET# [id number] Completed 02/20/2020, 11/09/2017, 04/14/2016, Additional history exists [...] arthropathy, hand Neuropathy Mononeuritis of unspecified site Dyslipidemia, goal LDL below 160 Other and unspecified hyperlipidemia Hypothyroidism due to acquired atrophy of thyroid documented in this encounter Care Teams Core Feeder Relationship Specialty Start Date End Date Rik Alan DO [address] [place] [address] PCP - General Family Medicine 04/17/16 documented as of this encounter
--- OUTSIDE RECORDS SUMMARY | 2023-11-08 12:44 | External Medical Summary | Summary of Care ---
Author Name Unknown Organization [facility] Address [address] [facility] [place] [address] Phone [phone] Care Team Providers Care Drilling Rig Operator Name Role Phone Rik Alan DO Primary Care Provider [phone] Reason for Visit * Reason Comments New Problem L hand * Evaluate & Treat - Unlimited Visits (Within 10 days (routine)) - Authorized Specialty Diagnoses / Procedures Referred By Devan kulkarni Referred To Contact Orthopaedic Surgery / Orthopedics Diagnoses [facility] arthritis Rik Alan DO [address] [place] [address] Referral ID Status Reason Start Date Expiration Date Visits Requested Visits Authorized [id number] Authorized Specialty Services Required 09/06/[phone] Encounter Details Date Type Department Care Team Description 09/10/[address] [facility] [address] [place] [address] Sree Monsivais MD [address] [place] [id number] Primary osteoarthritis of first carpometacarpal joint of left hand* Allergies Active Allergy Reactions Severity Noted Date Comments Baby Oil High 05/15/2022 Other reaction(s): Rash Lisinopril Cough 09/10/2010 Other Allergy (See Comments) Itching 014 BABY OIL Simvastatin 01/24/2008 myalgias documented as of this encounter (statuses as of 09/10/2023) Medications Medication Sig Dispensed Refills Start Date End Date Status Tylenol PM Extra Strength 500-25 MG Oral Tablet (diphenhydrAMINE-APA P (sleep)) Take 1 Tablet by mouth at bedtime as needed for Sleep. 0 Active Loperamide HCl 2 MG Oral Tablet (Immodium (A-D)) Take 1 Tablet by mouth 4 times a day as needed for Diarrhea. 0 Active Sotalol HCl 80 MG Oral Tablet (Betapace) TAKE 1/2 TABLET BY MOUTH IN THE MORNING THEN 1 TABLET IN THE EVENING 68 Tablet 11 09/16/2022 3 Active Additional Information Patient taking differently: 40 mg Oral BID (.AM/PM), Reported on 05/10/2023 hydrOXYzine HCl 25 MG Oral Tablet TAKE 1 TO 2 TABLETS BY MOUTH EVERY 6 HOURS NEEDED FOR ITCHING 20 Tablet 5 11/04/2022 3 Active Additional Information Patient not taking.Reported on 09/03/2023 Losartan Potassium 50 MG Oral Tablet (Cozaar)Indications: Essential hypertension with goal blood pressure less than 140/90 Take 1 Tablet by mouth in the morning. 90 Tablet 3 01/13/2023 Active Fluocinolone Acetonide 0.01 % Otic Oil (DermOtic) Applied to the ears once daily for 2 weeks and then once weekly for maintenance. 20 mL 1 05/26/2023 Active Additional Information Patient not taking.Reported on 09/03/2023 Nystatin [id number] UNIT/GM External Powder 3 times a day. 0 05/06/2023 Active valACYclovir HCl 1 GM Oral Tablet (Valtrex)Indications :Cold sore Take 2 Tablets by mouth in the morning and 2 Tablets before bedtime. For 1 day for cold sores. 4 Tablet 11 07/29/2023 Active Additional Information Patient not taking.Reported on 09/03/2023 Apixaban 5 MG Oral Tablet (Eliquis)Indications :Essential hypertension with goal blood pressure less than 140/90 TAKE 1 TABLET BY MOUTH IN THE MORNING AND 1 TABLET BEFORE BEDTIME. 180 Tablet 0 08/12/2023 4 Active Gabapentin 600 MG Oral Tablet (Neurontin)Indicatio ns:Idiopathic polyneuropathy Take 1 Tablet by mouth at bedtime. 90 Tablet 1 09/03/2023 Active Levothyroxine Sodium 100 MCG Oral Tablet (Levoxyl) Take 1 Tablet by mouth in the morning. (at least 30 min prior to breakfast or other meds). 90 Tablet 3 09/03/2023 Active oxyBUTYnin Chloride ER 5 MG Oral Tablet Extended Release 24 Hour (Ditropan XL)Indications:Urina ry frequency Take 1 Tablet by mouth in the morning. Do not cut, crush or chew. 90 Tablet 3 09/03/2023 Active Hospital, Clinic, or Other Facility Administered Medication Ordered Dose Route Frequency Start Date End Date Status lidocaine 1% 1 mL - triamcinolone acetonide 40 mg/mL 1 mL inj 2 mLIndications:Primary osteoarthritis of first carpometacarpal joint of left hand 2 mL IJ ONCE 09/10/2023 09/10/2023 Ended documented as of this encounter (statuses as of 09/10/2023) Active Problems Problem Noted Date FLETCHER (acute kidney injury) 05/10/2023 Idiopathic polyneuropathy 05/10/2023 Osteoporosis 05/10/2023 Urinary incontinence 02/24/2023 Other hereditary and idiopathic neuropat hies 02/24/2023 Tachy-brennan syndrome 08/31/2022 Medical home patient encounter 2 Neuropathy 02/18/2022 Body mass index (BMI) of 60.0 to 69.9 in adult 02/09/2022 Overview: Per Obesity protocol - Per Obesity protocol PAF (paroxysmal atrial fibrillation) Senile osteoporosis 11/10/2016 HTN, goal below 130/80 06/16/2016 Hypothyroidism due to acquired atrophy o f thyroid 07/31/2015 Dyslipidemia, goal LDL below 160 011 Female infertility DEPRESS PSYCHOSIS-UNSPEC documented as of this encounter (statuses as of 09/10/2023) Resolved Problems Problem Noted Date Resolved Date Body mass index (BMI) of 50.0 to 59.9 in adult 1 01/11/2021 02/11/2022 Overview: Per Obesity protocol Prediabetes 06/09/2021 12/11/2021 Overview: Per Prediabetes protocol Super obese 08/16/2017 08/16/2017 Bilateral hip fractures 07/30/2015 01/18/20 18 Age-related osteoporosis with current pathologic al fracture 07/22/2015 02/08/2018 Adult body mass index [...] Taxonomy. Morbid obesity, BMI not known 05/03/2007 Overview: Per Obesity Taxonomy ACQUIRED HYPOTHYROID NEC 06/08/2006 018 ADVANCE DIRECTIVE INFORMATION 03/25/2005 Overview: pt was given a brochure at a prior appt. HTN, goal below 140/90 02/03/2005 6 Mixed dyslipidemia 02/14/2003 10/23/2009 Overview: Per Lipid Taxonomy OBESITY, UNSPECIFIED 05/03/2007 documented as of this encounter (statuses as of 09/10/2023) Immunizations Name Administration Dates Next Due COVID-19 mRNA, LNP-s, PF, 18 + or 6-11Yrs (Moderna) 10/31/2021 COVID-19, LNP-s, No Preserve , Alexx-sucrose, Ages 12+ (Pfizer) 06/02/2022 Covid-19 Ad26, Single Dose (Aaron/J&J) 03/09/2021 Pneumococcal Conjugate Vacci ne, 20-valent ([id number]) 02/24/2023 SEASONAL INFLUENZA, PF, 6 M & [...] = 0.6 oz pur e alcohol) rare Sex Assigned at Date Recorded Female 02/14/2019 9:12 AM E DT Job Start Date Occupation Industry Not on file Not on file Not on file documented as of this encounter Progress Notes * Sree Monsivais MD - 09/10/2023 8:30 AM EDT Dipesh Mcgheer [id number] Dipesh Cox is a 62 year old female who presents for consultation to [facility] for right hand injury/pain. Consult requested by Rik Alan DO. Dipesh Cox is here unaccompanied History: Severity: reviewed and agree with Nursing Notes for HPI elements History - presents today for L hand pain x 1.5 months XR 08/27/23 Pain is intermittent is greatest at the basal joint of the thumb. She uses topical diclofenac and also icy hot which can help. ROS: ROS per HPI otherwise non-contributory Past Medical History: Diagnosis Date Calculus of kidney Depressive disorder, not elsewhere classified Depression Female infertility Infertility, Female HLD (hyperlipidemia) HTN, goal to be determined Hypothyroidism Obesity, BMI not known Obesity Other psoriasis Psoriasis Family History Problem Relation Age of Onset Stroke Mother Cervical Cancer Mother Diabetes Father Hypertension Father Arthritis Sister No Known Problems Sister No Known Problems Sister No Known Problems Brother Psoriasis Aunt (Maternal) great aunt Skin cancer No significant family history Breast Cancer No significant family history Colon cancer No significant family history Ovarian cancer No significant family history Social History Socioeconomic History Marital status: Spouse name: Naeem Chi Number of children: 0 Years of education: Not on file Highest education level: Not on file Occupational History Occupation: [employer] Comment: [employer] Tobacco Use Smoking status: Never Smokeless tobacco: Never Vaping Use Vaping Use: Never used Substance and Sexual Activity Alcohol use: Yes Comment: rare Drug use: No Sexual activity: Yes Partners: Male Other Topics Concern Service Not Asked Blood Transfusions Not Asked Caffeine Concern Not Asked Occupational Exposure Not Asked Hobby Hazards Not Asked Sleep Concern Not Asked Stress Concern Not Asked Weight Concern Not Asked Special Diet Not Asked Back Care Not Asked Exercise Not Asked Bike Helmet Not Asked Seat Belt Yes Self-Exams No Comment: breast Social History Narrative Originally from [place]. Graduated from [employer]. 3 Sisters - Nai and Jeannine, 1 brother Social Determinants of Health Financial Resource Strain: Not on file Food Insecurity: Not on file Transportation Needs: Not on file Physical Activity: Not on file Stress: Not on file Social Connections: Not on file Intimate Partner Violence: Not on file Housing Stability: Not on file Physical Exam Constitutional: Generally well-nourished and in no acute distress Psychiatric: Mood and Affect normal Eyes: EOMI Respiratory: Normal respiratory effort with regular rate and rhythm Tender palpate greatest at the basal joint Positive grind test Able to actively flex and extend the thumb Radiology (I have personally reviewed the following films): 08/27/2023: Three-view x-ray left hand IMPRESSION Severe thumb [facility] osteoarthritis Assessment and Plan: 1) left thumb pain Secondary to basal joint DJD which is rated as severe based on radiographs Options discussed Yariel ospina provided Intra-articular steroid injection performed to the basal joint today 09/10/2023 with ultrasound guidance Also discussed continuing diclofenac gel, icy hot Patient also follows with me for her knees and has a pending visit in 2 weeks. She will let me knowif the shot is helping at that time Dipesh Cox [id number] Procedure Note, 1st carpal metacarpal joint, Left: Time out: Prior to injection, a time out was called to confirm the administration of appropriate medicine, patient name, procedure and confirm to the best of our ability and knowledge the presence of any necessary risks and benefits. Patient verbalizes understanding. Ultrasound utilized to guide injection Ultrasound required due to: patient size (obese) and need to visualize specific joint recess - This procedure has been explained to the patient in detail - Skin cleansed with alcohol swab. - Area numbed with ethyl chloride spray - injected using 25 g 1.5 inch needle, Injected with 1 ml lidocaine 1%, triamcinolone acetonide 40mg/ml 1 ml. into carpal space under direct ultrasound guideance -minimal bleeding noted - sterile dressing applied. - Patient was instructed on local wound care and the signs and symptoms of a possible wound infection. Sree Monsivais MD Primary Care Sports Medicine Orthopaedics [facility] [address] [place] [id number] documented in this encounter Nursing Notes * SANDRA Castillo - 09/10/2023 8:01 AM EDT Pt presents today for L hand pain x 1.5 months XR 08/27/23 SANDRA Castillo documented in this encounter Plan of Treatment Upcoming Encounters Date Type Specialty Care Team Description 09/24/2023 Office Visit Orthopedics Sree Monsivais MD [address] [place] [address] 10/26/2023 Office Visit Urology Candido Sanford MD [address] [place] [address] [place] [address] 02/09/2024 Cardiac Studies Cardiac Studies 03/07/2024 Office Visit Cardiology Soila Esparza CRNP [address] [place] [address] 03/07/2024 Office Visit Family Medicine Rik Alan, DO [address] [place] [address] Pending Results Name Type Priority Associated Diagnoses Date /Time POINT OF CARE US JOINT INJECTION SMALL, ORTHO Medical Imaging Routine Primary osteoarthritis of first carpometacarpal joint of left hand 09/10/2023 8:39 AM EDT Scheduled Procedures Name Priority Associated Diagnoses Date/Ti [...] D LEVEL ONCE IN A LIFETIME-USE SMARTSET# [id number] Completed 02/20/2020, 11/09/2017, 04/14/2016, Additional history exists [...] as of this encounter Visit Diagnoses Diagnosis Primary osteoarthritis of first carpometacarpal joint of left hand- Primary Primary localized osteoarthrosis, hand documented in this encounter Administered Medications Inactive Administered Medications - up to 3 most recent administrations Medication Order MAR Action Action Date Dose Rate Site lidocaine 1% 1 mL - triamcinolone acetonide 40 mg/mL 1 mL inj 2 mL 2 mL, Injection, ONCE, On Wed09/10/23 at 0915, For 1 dose, Lidocaine 1% 1mL Triamcinolone Acetonide 40 mg/mL 1 mL (Final concentration = 20 mg/mL) REFRIGERATE and SHAKE WELL Given 09/10/2023 4:47 PM EDT 2 mL Hand Left documented in this encounter Care Teams Drilling Rig Operator Relationship Specialty Start Date End Date Rik Alan, [address] [place] [address] PCP - General Family Medicine 04/17/16 documented as of this encounter
--- OUTSIDE RECORDS SUMMARY | 2023-11-08 12:44 | External Medical Summary | Summary of Care ---
Author Name Unknown Organization [facility] Address [address] [facility] [place] [address] Phone [phone] Care Team Providers Care Digital X Ray Service Engineer Name Role Phone Rik Alan DO Primary Care Provider [phone] Reason for Visit * Reason Onset Date Comments Health Maintenance 09/20/2023 Encounter Details Date Type Department Care Team (Late st Contact Info) Description 09/20/2023 Telephone Family Practice [facility] [address] [facility] [place] [address] Rik Alan DO [address] [facility] [place] [place] [address] Health Maintenance Allergies Active Allergy Reactions Criticality Noted Date Comments Baby Oil High 05/15/2022 Other reaction(s): Rash Lisinopril Cough 09/10/2010 Other Allergy (See Comments) Itching 014 BABY OIL Simvastatin 01/24/2008 myalgias documented as of this encounter (statuses as of 09/22/2023) Medications Medication Sig Dispensed Refills Start Date [...] Information Patient not taking.Reported on 09/03/2023 Nystatin [id number] UNIT/GM External Powder 3 times a day. [...] or chew. 90 Tablet 3 09/03/2023 Active documented as of this encounter (statuses as of 09/22/2023) Active Problems Problem Noted Date Diagnosed Date [...] as of this encounter (statuses as of 09/22/2023) Resolved Problems Problem Noted Date Diagnosed Date [...] as of this encounter (statuses as of 09/22/2023) Immunizations Name Administration Dates Next Due COVID-19 mRNA, LNP-s, PF, 18 + or 6-11Yrs (Moderna) 10/31/2021 COVID-19, LNP-s, No Preserve , Alexx-sucrose, Ages 12+ (Pfizer) 06/02/2022 Covid-19 Ad26, Single Dose (Aaron/J&J) 03/09/2021 Pneumococcal Conjugate Vacci ne, 20-valent ([id number]) 02/24/2023 SEASONAL INFLUENZA, PF, 6 M & [...] 0.6 oz pur e alcohol) rare Sex and Gender Information Value Date Recorded Sex Assigned at Female 02/14/2019 9:12 AM EDT Gender Identity Female 02/14/2019 9:12 AM EDT Sexual Orientation Straight 02/14/2019 9: 12 AM EDT Job Start Date Occupation Industry Not on file Not on file Not on file documented as of this encounter Miscellaneous Notes * Addendum Note - Soha Barber LPN - 09/22/2023 8:59 AM EDTAddended by: SOHA BARBER on: 09/22/2023 08:59 AM Modules accepted: Orders * Telephone Encounter - Soha Barber LPN - 09/22/2023 8:59 AM EDT Spoke to patient. Urine added to labwork. Scheduled lab appt declines pap * Telephone Encounter - Soha Barber LPN - 09/21/2023 8:52 AM EDT Patient left vm message left for patient to call back. * Telephone Encounter - Soha Barber LPN - 09/20/2023 10:23 AM EDT Care Gaps Comprehensive Care Outreach Last Office/Telemedicine Visit: 08/27/2023 (in office), Visit date not found (telemedicine) Next Office Visit: 03/07/2024 Hemoglobin AIC Results: Lab Results Component Value Date/Time HEMOGLOBIN A1C - [facility] 6.0 (H) 02/24/2023 10:39 AM HEMOGLOBIN A1C - [facility] 5.8 (H) 06/03/2021 10:55 AM HEMOGLOBIN A1C - [facility] 5.9 (H) 02/20/2020 11:43 AM HEMOGLOBIN A1C - [facility] 5.9 (H) 08/16/2018 10:09 AM Reviewed Health Maintenance below: Health Maintenance Topic Date Due Albumin/Creatinine Ratio Never done Cervical Cancer Screening 12/25/2011 Depression Screening 07/14/2023 COVID-19 Vaccine ( season) 2023 Urine pap Care Gap Outreach Action Taken: Left message documented in this encounter Plan of Treatment Upcoming Encounters Date Type Department Care Team (Late st Contact Info) Description 10/26/2023 10:30 AM EST Laboratory Laboratory, [facility] [address] [facility] [place] [id number] [facility] [address] [facility] [place] [address] 10/26/2023 11:00 AM EST Office Visit Urology, [facility] [address] [facility] [place] [address] Candido Sanford MD [address] [address] [place] [address] 11/12/2023 1:00 PM EST Office Visit Orthopaedics [facility] [address] [facility] [place] [address] Sree Monsivais MD [address] [facility] [place] [address] 02/09/2024 9:30 AM EDT Cardiac Studies Cardiac Studies, [facility] [address] [facility] [place] [address] 03/07/2024 10:00 AM EDT Office Visit Cardiology, [facility] [address] [facility] [place] [address] Soila Esparza CRNP [address] [facility] [place] [address] 03/07/2024 1:40 PM EDT Office Visit Family Practice [facility] [address] [place] [address] Rik Alan, DO [address] [place], [place] [address] Scheduled Orders Name Type Priority Associated Diagnoses Orde r Schedule ALBUMIN / CREATININE RATIO, URINE Lab Routine Hypertension, unspecified type Expected: 09/22/2023 (Approximate), Expires: 09/22/2024 Scheduled Procedures Name Priority Associated Diagnoses Date/Ti me COLONOSCOPY FLEXIBLE PROXIMAL DIAGNOSTIC Recall History of colon polyps Health Maintenance Due Date Last Done Comments Albumin/Creatinine Ratio 1979 HPV/Co-Test 1991 Cervical Cancer Screening 12/25/2011 Pap Smear 12/25/2011 12/25/2008, 11/30, 01/13/2005, Additional history exists Depression Screening 07/14/2023 07/14/2022 COVID-19 Vaccine ( season) 2023 06/02/2022, 10/31/2021, 03/09/2021 GFR 02/25/2024 02/24/2023, 0703/2022, 05/23/2022, Additional history exists Mammogram 04/16/2024 04/16/2023, [...] D LEVEL ONCE IN A LIFETIME-USE SMARTSET# [id number] Completed 02/20/2020, 11/09/2017, 04/14/2016, Additional history exists [...] as of this encounter Visit Diagnoses Diagnosis Hypertension, unspecified type- Primary documented in this encounter Care Teams Digital X Ray Service Engineer Relationship Specialty Start Date End Date Rik Alan DO [address] [place] [address] PCP - General Family Medicine 04/17/16 documented as of this encounter
--- OUTSIDE RECORDS SUMMARY | 2023-11-08 12:44 | External Medical Summary | Summary of Care ---
Author Name Unknown Organization [facility] Address [address] [facility] [place] [address] Phone [phone] Care Team Providers Care Senior Information Systems Architect Name Role Phone Sheila Alan DO Primary Care Provider [phone] Reason for Referral * Evaluate & Treat - Unlimited Visits (Within 10 days (routine)) - Authorized Specialty Diagnoses / Procedures Referred By Devan kulkarni Referred To Contact Orthopaedic Surgery / Orthopedics Diagnoses [facility] arthritis Sheila Alan DO [address] [place] [address] Referral ID Status Reason Start Date Expiration Date Visits Requested Visits Authorized [id number] Authorized Specialty Services Required 09/06/[phone] Question Answer Referral Priority Within 10 days (routine) Where should this appointment be scheduled? [facility] What body part is the patient being seen for? Hand What condition is the patient being seen for? Arthritis including related infection Reason for Visit * Reason Onset Date Comments Advice 08/31/2023 Test Results 08/31/2023 Encounter Details Date Type Department Care Team Description 08/31/2023 Telephone Family Practice [place] [facility] [address] [place] [address] Sheila Alan DO [address] [place] [address] Advice; Test Results Allergies Active Allergy Reactions Severity Noted Date Comments Baby Oil High 05/15/2022 Other reaction(s): Rash Lisinopril Cough 09/10/2010 Other Allergy (See Comments) Itching 014 BABY OIL Simvastatin 01/24/2008 myalgias documented as of this encounter (statuses as of 09/07/2023) Medications Medication Sig Dispensed Refills Start Date End Date Status Tylenol PM Extra Strength 500-25 MG Oral Tablet (diphenhydrAMINE-A PAP (sleep)) Take 1 Tablet by mouth at bedtime as needed for Sleep. 0 Active Loperamide HCl 2 MG Oral Tablet (Immodium (A-D)) Take 1 Tablet by mouth 4 times a day as needed for Diarrhea. 0 Active Sotalol HCl 80 MG Oral Tablet (Betapace) TAKE 1/2 TABLET BY MOUTH IN THE MORNING THEN 1 TABLET IN THE EVENING 68 Tablet 11 2 023 Active Additional Information Patient taking differently: 40 mg Oral BID (.AM/PM), Reported on 05/10/2023 hydrOXYzine HCl 25 MG Oral Tablet TAKE 1 TO 2 TABLETS BY MOUTH EVERY 6 HOURS NEEDED FOR ITCHING 20 Tablet 5 2 023 Active Additional Information Patient not taking.Reported on 09/03/2023 Losartan Potassium 50 MG Oral Tablet (Cozaar)Indication s:Essential hypertension with goal blood pressure less than 140/90 Take 1 Tablet by mouth in the morning. 90 Tablet 3 3 Active Fluocinolone Acetonide 0.01 % Otic Oil (DermOtic) Applied to the ears once daily for 2 weeks and then once weekly for maintenance. 20 mL 1 3 Active Additional Information Patient not taking.Reported on 09/03/2023 Nystatin 378837 UNIT/GM External Powder 3 times a day. 0 3 Active valACYclovir HCl 1 GM Oral Tablet (Valtrex)Indicatio ns:Cold sore Take 2 Tablets by mouth in the morning and 2 Tablets before bedtime. For 1 day for cold sores. 4 Tablet 11 3 Active Additional Information Patient not taking.Reported on 09/03/2023 Apixaban 5 MG Oral Tablet (Eliquis)Indicatio ns:Essential hypertension with goal blood pressure less than 140/90 TAKE 1 TABLET BY MOUTH IN THE MORNING AND 1 TABLET BEFORE BEDTIME. 180 Tablet 0 3 024 Active hydroCHLOROthiazid e 25 MG Oral Tablet (Hydrodiuril)Indic ations:Essential hypertension with goal blood pressure less than 140/90 TAKE 1 TABLET BY MOUTH ONCE DAILY. 90 Tablet 3 2 023 Atorvastatin Calcium 40 MG Oral Tablet (Lipitor)Indicatio ns:Dyslipidemia, goal LDL below 160 TAKE 1 TABLET BY MOUTH IN THE MORNING. 90 Tablet 3 2 023 Oxybutynin Chloride ER 5 MG Oral Tablet Extended Release 24 Hour (Ditropan XL)Indications:Uri nary frequency Take 1 Tablet by mouth in the morning. Do not cut, crush or chew. 30 Tablet 11 3 023 Discontinued(Re fill) predniSONE 10 MG Oral Tablet (Deltasone)Indicat ions:Bronchitis, complicated Take 5 tablets by mouth for 2 days, 4 tabs for 2 days, 3 tabs for 2 days, 2 tabs for 2 days 1 tab for 2 days 30 Tablet 0 3 023 Discontinued Levothyroxine Sodium 100 MCG Oral Tablet (Levoxyl) Take 1 Tablet by mouth in the morning. (at least 30 min prior to breakfast or other meds). 30 Tablet 11 3 023 Discontinued(Re fill) Alendronate Sodium 70 MG Oral Tablet (Fosamax)Indicatio ns:Senile osteoporosis Take 1 Tablet by mouth once for 1 dose. 4 Tablet 3 3 023 Discontinued(Re fill) Gabapentin 600 MG Oral Tablet (Neurontin)Indicat ions:Idiopathic polyneuropathy Take 1 Tablet by mouth at bedtime. 30 Tablet 5 3 023 Discontinued(Re fill) documented as of this encounter (statuses as of 09/07/2023) Active Problems Problem Noted Date FLETCHER (acute kidney injury) 05/10/2023 Idiopathic polyneuropathy 05/10/2023 Osteoporosis 05/10/2023 Urinary incontinence 02/24/2023 Other hereditary and idiopathic neuropat hies 02/24/2023 Tachy-brennan syndrome 08/31/2022 Medical home patient encounter Neuropathy 02/18/2022 Body mass index (BMI) of 60.0 to 69.9 in adult 02/09/2022 Overview: Per Obesity protocol - Per Obesity protocol PAF (paroxysmal atrial fibrillation) Senile osteoporosis 11/10/2016 HTN, goal below 130/80 06/16/2016 Hypothyroidism due to acquired atrophy o f thyroid 07/31/2015 Dyslipidemia, goal LDL below 160 011 Female infertility DEPRESS PSYCHOSIS-UNSPEC documented as of this encounter (statuses as of 09/07/2023) Resolved Problems Problem Noted Date Resolved Date [...] as of this encounter (statuses as of 09/07/2023) Immunizations Name Administration Dates Next Due COVID-19 mRNA, LNP-s, PF, 18 + or 6-11Yrs (Moderna) 10/31/2021 COVID-19, LNP-s, No Preserve , Alexx-sucrose, Ages 12+ (Pfizer) 06/02/2022 Covid-19 Ad26, Single Dose (MineralTree/J&J) 03/09/2021 Pneumococcal Conjugate Vacci ne, 20-valent ([id number]) 02/24/2023 SEASONAL INFLUENZA, PF, 6 M & [...] encounter Miscellaneous Notes * Telephone Encounter - CARINE Cope - 09/07/2023 1:15 PM EDT Pt is scheduled for 09/10 * Addendum Note - Sheila Alan DO - 09/06/2023 10:55 AM EDTAddended by: SHEILA ALAN on: 09/06/2023 10:55 AM Modules accepted: Orders * Telephone Encounter - Sheila Alan DO - 09/06/2023 10:54 AM EDT Yes, it probably would. I put in for a ortho referral to get this done. * Telephone Encounter - Nani Mcleod LPN - 09/03/2023 1:26 PM EDT Patient returned call. Informed of message. Verbalized understanding. She gets injections in her knees, she inquired if an injection would help her thumb? * Telephone Encounter - CARINE Salvador - 09/03/2023 1:25 PM EDT Reason for patient's call: Requesting to speak with a nurse. Caller was transferred to Nani at the nurse line. * Telephone Encounter - Sheila Alan DO - 09/01/2023 12:40 PM EDT X-rays show no fracture, It shows severe arthritis of thumb but that is it. * Telephone Encounter - Shirley Villa LPN - 08/31/2023 6:49 PM EDT Have you had a chance to review xrays please advise * Telephone Encounter - CARINE Story - 08/31/2023 2:44 PM EDT PT ALSO REQUESTING TO TALK TO NURSE REGARDING MEDICATION Who is Requesting Test Results: Patient Primary Care Provider : Sheila Alan DO Tests Results Requested : Xray left hand Date of Test : 08/27/23 Location of Test: [facility] Ordering Provider: Dayanna Callback Number: [phone] Patient has been made aware that the turnaround time for test results are typically as follows: Laboratory results = within 2 days Urine Cultures = within 2-3 days depending on growth within the culture Pathology results (biopsy results/PAP) = 1-2 weeks Radiology results = within 1 week Cologuard results = within 2 weeks from the shipment date COVID testing = results are on average 7 days documented in this encounter Plan of Treatment Upcoming Encounters Date Type Specialty Care Team Description 09/10/2023 Office Visit Orthopedics Sree Monsivais MD [address] [place] [address] 09/24/2023 Office Visit Orthopedics Sree Monsivais MD [address] [place] [address] 10/26/2023 Office Visit Urology Candido Sanford MD [address] [place] [address] 02/09/2024 Cardiac Studies Cardiac Studies 03/07/2024 Office Visit Cardiology Soila Esparza CRNP [address] [place] [address] 03/07/2024 Office Visit Family Medicine Sheila Alan, DO [address] [facility], [place] [id number] Scheduled Procedures Name Priority Associated Diagnoses Date/Ti me COLONOSCOPY FLEXIBLE PROXIMAL DIAGNOSTIC Recall History of colon polyps Scheduled Referrals Name Type Priority Associated Diagnoses Order Schedule ORTHOPAEDICS REFERRAL OP Referral Within 10 days (routine) [facility] arthritis Ordered: 09/06/2023 Health Maintenance Due Date Last Done Comments [...] D LEVEL ONCE IN A LIFETIME-USE SMARTSET# [id number] Completed 02/20/2020, 11/09/2017, 04/14/2016, Additional history exists [...] as of this encounter Visit Diagnoses Diagnosis [facility] arthritis- Primary Unspecified arthropathy, hand documented in this encounter Care Teams Senior Information Systems Architect Relationship Specialty Start Date End Date Sheila Alan, DO [address] [place] [address] PCP - General Family Medicine 04/17/16 documented as of this encounter
--- OUTSIDE RECORDS SUMMARY | 2023-11-08 12:44 | External Medical Summary | Summary of Care ---
Author Name Unknown Organization [facility] Address [address] [facility] [place] [address] Phone [phone] Care Team Providers Care Product Safety Officer Name Role Phone Rik Alan DO Primary Care Provider [phone] Reason for Visit * Reason Onset Date Comments Health Maintenance 09/20/2023 Encounter Details Date Type Department Care Team (Late st Contact Info) Description 09/20/2023 Telephone Family Practice [facility] [address] [facility] [place] [address] Rik Alan DO [address] [facility] [place] [address] Health Maintenance Allergies Active Allergy Reactions Criticality Noted Date Comments Baby Oil High 05/15/2022 Other reaction(s): Rash Lisinopril Cough 09/10/2010 Other Allergy (See Comments) Itching 014 BABY OIL Simvastatin 01/24/2008 myalgias documented as of this encounter (statuses as of 09/20/2023) Medications Medication Sig Dispensed Refills Start Date [...] Information Patient not taking.Reported on 09/03/2023 Nystatin [id number] UNIT/GM External Powder 3 times a day. [...] as of this encounter (statuses as of 09/20/2023) Active Problems Problem Noted Date Diagnosed Date [...] as of this encounter (statuses as of 09/20/2023) Resolved Problems Problem Noted Date Diagnosed Date [...] as of this encounter (statuses as of 09/20/2023) Immunizations Name Administration Dates Next Due COVID-19 mRNA, LNP-s, PF, 18 + or 6-11Yrs (Moderna) 10/31/2021 COVID-19, LNP-s, No Preserve , Alexx-sucrose, Ages 12+ (Pfizer) 06/02/2022 Covid-19 Ad26, Single Dose (Aaron/J&J) 03/09/2021 Pneumococcal Conjugate Vacci ne, 20-valent ([id number]) 02/24/2023 SEASONAL INFLUENZA, PF, 6 M & [...] encounter Miscellaneous Notes * Telephone Encounter - Soha Barber LPN [...] 10/26/2023 11:00 AM EST Office Visit Urology, [facility] [address] [place] [address] Candido Sanford MD [address] [facility] [address] [place] [address] 11/12/2023 1:00 PM EST Office Visit Orthopaedics [facility] [address] [place] [address] Sree Monsivais MD [address] [place] [address] 02/09/2024 9:30 AM EDT Cardiac Studies Cardiac Studies, [facility] [address] [place] [address] 03/07/2024 10:00 AM EDT Office Visit Cardiology, [facility] [address] [facility] [place] [address] Soila Esparza CRNP [address] [place] [address] 03/07/2024 1:40 PM EDT Office Visit Family Practice [facility] [address] [facility] [place] [address] Rik Alan, DO [address] [facility] [place] [address] Scheduled Procedures Name Priority Associated Diagnoses Date/Ti [...] D LEVEL ONCE IN A LIFETIME-USE SMARTSET# [id number] Completed 02/20/2020, 11/09/2017, 04/14/2016, Additional history exists [...] Not on filedocumented as of this encounter Care Teams Product Safety Officer Relationship Specialty Start Date End Date Rik Alan DO [address] [place] [address] PCP - General Family Medicine 04/17/16 documented as of this encounter
--- OUTSIDE RECORDS SUMMARY | 2023-11-08 12:44 | External Medical Summary | Summary of Care ---
Author Name Unknown Organization [facility] Address [address] [facility] [place] [address] Phone [phone] Care Team Providers Care Seed Cleaner Operator Name Role Phone Rik Alan DO Primary Care Provider [phone] Reason for Visit * Reason Comments New Problem L hand * Evaluate & Treat - Unlimited Visits (Within 10 days (routine)) - Authorized Specialty Diagnoses / Procedures Referred By Devan kulkarni Referred To Contact Orthopaedic Surgery / Orthopedics Diagnoses [facility] arthritis Rik Alan DO [address] [place] [address] Referral ID Status Reason Start Date Expiration Date Visits Requested Visits Authorized [id number] Authorized Specialty Services Required 09/06/[phone] Encounter Details Date Type Department Care Team Description 09/10/2023 Office Visit Orthopaedics [facility] [address] [place] [address] Sree Monsivais MD [address] [place] [address] Primary osteoarthritis of first carpometacarpal joint of [...] Information Patient not taking.Reported on 09/03/2023 Nystatin [id number] UNIT/GM External Powder 3 times a day. [...] hand 2 mL IJ ONCE 09/10/2023 09/10/2023 Active documented as of this encounter (statuses [...] (Aaron/J&J) 03/09/2021 Pneumococcal Conjugate Vacci ne, 20-valent ([id number]) 02/24/2023 SEASONAL INFLUENZA, PF, 6 M & [...] - 09/10/2023 8:30 AM EDT Dipesh Mcgheer [id number] Dipesh Cox is a 62 year old female who presents for consultation to [facility] for right hand [...] Comment: breast Social History Narrative Originally from [place]. Graduated from [employer], 1 [...] is helping at that time Dipesh Cox [id number] Procedure Note, 1st carpal metacarpal joint, Left: [...] Monsivais MD Primary Care Sports Medicine Orthopaedics [facility] [address] [place] [address] documented in this encounter Nursing Notes * SANDRA Castillo - 09/10/2023 8:01 AM EDT Pt presents today for L hand pain x 1.5 months XR 08/27/23 SANDRA Castillo documented in this encounter Plan of Treatment Upcoming Encounters Date Type Specialty Care Team Description 09/24/2023 Office Visit Orthopedics Sree Monsivais MD [address] [place] [address] 10/26/2023 Office Visit Urology Candido Sanford MD [address] [place] [address] [place] [address] 02/09/2024 Cardiac Studies Cardiac Studies 03/07/2024 Office Visit Cardiology Soila Esparza CRNP [address] [place] [address] 03/07/2024 Office Visit Family Medicine Rik Alan, DO [address] [place] [address] Pending Results Name Type Priority Associated Diagnoses [...] D LEVEL ONCE IN A LIFETIME-USE SMARTSET# [id number] Completed 02/20/2020, 11/09/2017, 04/14/2016, Additional history exists [...] localized osteoarthrosis, hand documented in this encounter Care Teams Seed Cleaner Operator Relationship Specialty Start Date End Date Rik Alan, DO [address] [facility] [place] [address] PCP - General Family Medicine 04/17/16 documented as of this encounter
--- OUTSIDE RECORDS SUMMARY | 2023-11-08 12:44 | External Medical Summary ---
Author Name Unknown Address Unknown Organization K01:[facility] [place] [facility] [address] [place] [address] Laboratory Report Ordering Provider Test Date Status SHARON MARQUEZ 10/26/2023 10:14:32 Final Observation Date Value Abnormality Reference (Units ) Status Creatinine 10/26/2023 10:14:32 0.9 0.5-1.0 (mg/dL) Final Glomerular filtration rate/1.73 sq M.predicted [Volume Rate/Area] in Serum, Plasma or Blood by Creatinine-based formula (CKD-EPI) 10/26/2023 10:14:32 72 >=60 (mL/min) Final eGFR is calculated based on the CKD-EPI 2020 equation Performing Location [facility] [place] [facility] [address] [place] [place] [address]
--- OUTSIDE RECORDS SUMMARY | 2023-11-08 12:44 | External Medical Summary | Summary of Care ---
Author Name Unknown Organization [facility] Address [address] [facility] [place] [address] Phone [phone] Care Team Providers Care Experimental Technician Name Role Phone Rik Alan DO Primary Care Provider +1 [phone] Reason for Visit * Reason Onset Date Comments Re-Check Medication Administration 08/27/2023 Flu an d/or Pneumo Inj Encounter Details Date Type Department Care Team Description 08/27/2023 Office Visit Family Practice [facility] [address] [place] [address] Rik Alan DO [address] [place] [address] Idiopathic polyneuropathy*; Need for prophylactic vaccination and inoculation against influenza; Injury of left hand, subsequent encounter; Senile osteoporosis Allergies Active Allergy Reactions Severity Noted Date Comments Baby Oil High 05/15/2022 Other reaction(s): Rash Lisinopril Cough 09/10/2010 Other Allergy (See Comments) Itching 014 BABY OIL Simvastatin 01/24/2008 myalgias documented as of this encounter (statuses as of 09/06/2023) Medications Medication Sig Dispensed Refills Start Date [...] ITCHING 20 Tablet 5 2 023 Active Losartan Potassium 50 MG Oral Tablet (Cozaar)Indication s:Essential hypertension with goal blood pressure less than 140/90 Take 1 Tablet by mouth in the morning. 90 Tablet 3 3 Active Fluocinolone Acetonide 0.01 % Otic Oil (DermOtic) Applied to the ears once daily for 2 weeks and then once weekly for maintenance. 20 mL 1 3 Active Nystatin 554945 UNIT/GM External Powder 3 times a day. 0 3 Active valACYclovir HCl 1 GM Oral Tablet (Valtrex)Indicatio ns:Cold sore Take 2 Tablets by mouth in the morning and 2 Tablets before bedtime. For 1 day for cold sores. 4 Tablet 11 3 Active Apixaban 5 MG Oral Tablet (Eliquis)Indicatio ns:Essential hypertension with goal blood pressure less than 140/90 TAKE 1 TABLET BY MOUTH IN THE MORNING AND 1 TABLET BEFORE BEDTIME. 180 Tablet 0 3 024 Active Gabapentin 300 MG Oral Capsule (Neurontin) TAKE ONE CAPSULE BY MOUTH AT BEDTIME 30 Capsule 5 2 023 Discontinued Oxybutynin Chloride ER 5 MG Oral Tablet [...] fill) Alendronate Sodium 70 MG Oral Tablet Effervescent (Binosto) Take by mouth. 0 023 Discontinued(Re fill) Alendronate Sodium 70 MG Oral Tablet (Fosamax)Indicatio ns:Senile osteoporosis Take 1 Tablet by mouth once for 1 dose. 4 Tablet 3 3 023 Discontinued(Re fill) Gabapentin 600 MG Oral Tablet (Neurontin)Indicat ions:Idiopathic polyneuropathy Take 1 Tablet by mouth at bedtime. 30 Tablet 5 3 023 Discontinued(Re fill) documented as of this encounter (statuses as of 09/06/2023) Active Problems Problem Noted Date FLETCHER (acute [...] as of this encounter (statuses as of 09/06/2023) Resolved Problems Problem Noted Date Resolved Date [...] as of this encounter (statuses as of 09/06/2023) Immunizations Name Administration Dates Next Due COVID-19 mRNA, LNP-s, PF, 18 + or 6-11Yrs (Moderna) 10/31/2021 COVID-19, LNP-s, No Preserve , Alexx-sucrose, Ages 12+ (Pfizer) 06/02/2022 Covid-19 Ad26, Single Dose (Aaron/J&J) 03/09/2021 Pneumococcal Conjugate Vacci ne, 20-valent ([id number]) 02/24/2023 SEASONAL INFLUENZA, PF, 6 M & [...] on file documented as of this encounter Last Filed Vital Signs Vital Sign Reading Time Taken Comments Blood Pressure 128/64 08/27/2023 11:40 AM EDT Pulse 51 08/27/2023 11:40 AM EDT Temperature 36.2 C (97.1 F) 08/27/2023 1 1:40 AM EDT Respiratory Rate 16 08/27/2023 11:4 0 AM EDT Oxygen Saturation 98% 08/27/2023 11: 40 AM EDT Inhaled Oxygen Concentration - - Weight 174.4 kg (384 lb 6.4 oz) 023 11:40 AM EDT Height - - Body Mass Index 68.11 05/26/2023 12:40 PM EDT documented in this encounter Progress Notes * Rik Alan, - 08/27/2023 11:48 AM EDT Subjective: Dipesh Cox is a 62 year old female. Chief Complaint Patient presents with Re-Check Medication Administration Flu and/or Pneumo Inj HPI: Pain in her L hand from using cane and pushing to get up. She does better with her walker. Gets dizzy with her She a lump below her L eye. Podiatry recommended an increase of her gabapentin. Trouble walking with dizziness and SOB. Gets dizzy quickly with walking. Cardio recommends a pacemaker and that could help. Breathing has been good. PMHx, meds, and allergies reviewed Still itches a lot. Saw derm for it. PMHx, meds, and allergies reviewed Patient Active Problem List Diagnosis Code Female infertility N97.9 DEPRESS PSYCHOSIS-UNSPEC F32.9 Dyslipidemia, goal LDL below 160 E78.5 Hypothyroidism due to acquired atrophy of thyroid E03.4 HTN, goal below 130/80 I10 Senile osteoporosis M81.0 PAF (paroxysmal atrial fibrillation) ([facility]) I48.0 Body mass index (BMI) of 60.0 to 69.9 in adult ([facility]) Z68.44 Neuropathy G62.9 Medical home patient encounter Z00.8 Tachy-brennan syndrome ([facility]) I49.5 Urinary incontinence R32 Other hereditary and idiopathic neuropathies G60.8 FLETCHER (acute kidney injury) ([facility]) N17.9 Idiopathic polyneuropathy G60.9 Osteoporosis M81.0 Current Outpatient Medications Medication Sig Dispense Refill Tylenol PM Extra Strength 500-25 MG Oral Tablet (diphenhydrAMINE-APAP (sleep)) Take 1 Tablet by mouth at bedtime as needed for Sleep. Loperamide HCl 2 MG Oral Tablet (Immodium (A-D)) Take 1 Tablet by mouth 4 times a day as needed forDiarrhea. Sotalol HCl 80 MG Oral Tablet (Betapace) TAKE 1/2 TABLET BY MOUTH IN THE MORNING THEN 1 TABLET IN THE EVENING (Patient taking differently: Take 0.5 Tablets by mouth in the morning and 0.5 Tablets before bedtime.) 68 Tablet 11 hydrOXYzine HCl 25 MG Oral Tablet TAKE 1 TO 2 TABLETS BY MOUTH EVERY 6 HOURS NEEDED FOR ITCHING 20 Tablet 5 Gabapentin 300 MG Oral Capsule (Neurontin) TAKE ONE CAPSULE BY MOUTH AT BEDTIME 30 Capsule 5 Losartan Potassium 50 MG Oral Tablet (Cozaar) Take 1 Tablet by mouth in the morning. 90 Tablet 3 Oxybutynin Chloride ER 5 MG Oral Tablet Extended Release 24 Hour (Ditropan XL) Take 1 Tablet by mouth in the morning. Do not cut, crush or chew. 30 Tablet 11 Fluocinolone Acetonide 0.01 % Otic Oil (DermOtic) Applied to the ears once daily for 2 weeks and then once weekly for maintenance. 20 mL 1 Nystatin 701217 UNIT/GM External Powder 3 times a day. valACYclovir HCl 1 GM Oral Tablet (Valtrex) Take 2 Tablets by mouth in the morning and 2 Tablets before bedtime. For 1 day for cold sores. 4 Tablet 11 predniSONE 10 MG Oral Tablet (Deltasone) Take 5 tablets by mouth for 2 days, 4 tabs for 2 days, 3 tabs for 2 days, 2 tabs for 2 days 1 tab for 2 days 30 Tablet 0 Apixaban 5 MG Oral Tablet (Eliquis) TAKE 1 TABLET BY MOUTH IN THE MORNING AND 1 TABLET BEFORE BEDTIME. 180 Tablet 0 Levothyroxine Sodium 100 MCG Oral Tablet (Levoxyl) Take 1 Tablet by mouth in the morning. (at least30 min prior to breakfast or other meds). 30 Tablet 11 Alendronate Sodium 70 MG Oral Tablet Effervescent (Binosto) Take by mouth. No current facility-administered medications for this visit. Review of patient's allergies indicates: Allergen Reactions Baby Oil Other reaction(s): Rash Lisinopril Cough Other Allergy (See Comments) Itching BABY OIL Zocor [Simvastatin] myalgias OBJECTIVE: BP 128/64 | Pulse 51 | Temp 36.2 C (97.1 F) (Tympanic) | Resp 16 | Wt (!) 174.4 kg (384 lb 6.4 oz) | LMP 12/12/2004 | SpO2 98% | BMI 68.11 kg/m | BSA 2.78 m Estimated body mass index is 68.11 kg/m as calculated from the following: Height as of 05/26/23: 1.6 m (5' 2.99"). Weight as of this encounter: 174.4 kg (384 lb 6.4 oz). BP Readings from Last 3 Encounters: 08/27/23 128/64 07/29/23 136/72 05/14/23 160/82 Wt Readings from Last 3 Encounters: 08/27/23 (!) 174.4 kg (384 lb 6.4 oz) 07/29/23 (!) 174.4 kg (384 lb 6.4 oz) 05/26/23 (!) 175.5 kg (387 lb) ROS: Negative except for above PHYSICAL EXAM: General: alert, healthy, and no distress Head: Normocephalic, No masses, lesions, tenderness or abnormalities Heart: regular rate & rhythm, no murmur, and no gallops Lungs: chest symmetric with normal AP diameter, no chest deformities noted, no chest wall tenderness, lungs clear to auscultation ASSESSMENT/Plan Idiopathic polyneuropathy (Primary) - Gabapentin 600 MG Oral Tablet (Neurontin); Take 1 Tablet by mouth at bedtime. Need for prophylactic vaccination and inoculation against influenza - INFLUENZA VACC, QUAD, PF, 6 MONTHS & UP, 0.5 ML, IM Injury of left hand, subsequent encounter - XR HAND 3 OR MORE VIEWS Senile osteoporosis - Alendronate Sodium 70 MG Oral Tablet (Fosamax); Take 1 Tablet by mouth once for 1 dose. I spent over 25 minutes of time face to face with more than half of it being in counseling and coordination of care Check x-ray of her hand and increase gabapentin. The above was discussed and understanding was expressed. Rik Alan DO * Shirley Villa LPN - 08/27/2023 11:45 AM EDT PRE - ADMINISTRATION DOCUMENTATION Are you experiencing any cold symptoms or fever? No Have you had Guillain-Berea Syndrome (an illness that causes paralysis) within the last 6 weeks? No Have you had the flu shot in the past? YES Have you ever had a reaction to the flu shot? No Shirley Villa LPN, 08/27/2023 11:45 AM Immunization Administration Documentation Time Out Procedure Performed: Yes Patient Identified (Ask Name/Date of ): Yes Does the patient have a fever greater than 101 degrees today? No Patient allergic to latex? No VFC Stock: No Immunization(s) verified: Yes, Immunization Name: Flu, VIS Sheet(s) given: No Verified Side and Site: Yes Verified Shot(s) with Parent(s)/Patient: Yes documented in this encounter Nursing Notes * Shirley Villa LPN - 08/27/2023 11:35 AM EDT Dipesh Cox presents for 6 month recheck. Medications & HM reviewed. Would like her left hand looked at as it has been sore from using a cane. Is having SOB when walking any distance. Has seen eye dr but states she has a lump on left eye. Would like refill of alendronate. documented in this encounter Miscellaneous Notes * Result Encounter Note - Rik Alan DO - 09/01/2023 11:52 AM EDT Letter: Good news! There were no fractures in your hand after your fall. There was some arthritis in your thumb but otherwise the x-ray looked good. documented in this encounter Plan of Treatment Upcoming Encounters Date Type Specialty Care Team Description 09/24/2023 Office Visit Orthopedics Sree Monsivais MD [address] [place] [address] 10/26/2023 Office Visit Urology Candido Sanford MD [address] [place] [address] [place] [address] 02/09/2024 Cardiac Studies Cardiac Studies 03/07/2024 Office Visit Cardiology Soila Esparza CRNP [address] [place] [address] 03/07/2024 Office Visit Family Medicine Rik Alan DO [address] [place] [address] Scheduled Procedures Name Priority Associated Diagnoses Date/Ti [...] D LEVEL ONCE IN A LIFETIME-USE SMARTSET# [id number] Completed 02/20/2020, 11/09/2017, 04/14/2016, Additional history exists [...] Procedure Name Priority Date/Time Associated Diagnosis Comments XR HAND 3 OR MORE VIEWS Routine 08/27/2023 12:19 PM EDT Injury of left hand, subsequent encounter documented in this encounter Results * XR HAND 3 OR MORE VIEWS (08/27/2023 12:19 PM EDT) Anatomical Region Laterality Modality Upper Extremity, Hand Computed R adiography 08/30/2023 5:30 PM EDT Impressions 08/30/2023 5:27 PM EDT IMPRESSION Severe thumb CMC osteoarthritis. Narrative 08/30/2023 5:27 PM EDT EXAM XR HAND 3 OR MORE VIEWS-08/27/2023 12:19 pm HISTORY fall back onto her hadn, hurts to use recliner. Pain ofus over 2-3rd metacarpal TECHNIQUE Three views of the LT hand COMPARISON None. FINDINGS No acute fracture or dislocation. Hypertrophic changes and severe thumb CMC joint space narrowing. No focal soft tissue swelling. Diffuse osteopenia. Procedure Note Scott Robertson MD - 08/30/2023 EXAM XR HAND 3 OR MORE VIEWS-08/27/2023 12:19 pm HISTORY fall back onto her hadn, hurts to use recliner. Pain ofus over 2-3rdmetacarpal TECHNIQUE Three views of the LT hand COMPARISON None. FINDINGS No acute fracture or dislocation. Hypertrophic changes and severe thumbCMC joint space narrowing. No focal soft tissue swelling. Diffuseosteopenia. IMPRESSION IMPRESSION Severe thumb CMC osteoarthritis. Rik Alan DO RADIOLOGY (RAD GENE RAL) documented in this encounter Visit Diagnoses Diagnosis Idiopathic polyneuropathy- Primary Unspecified hereditary and idiopathic peripheral neuropathy Need for prophylactic vaccination and inoculation against influenza Injury of left hand, subsequent encounter Senile osteoporosis documented in this encounter Care Teams Experimental Technician Relationship Specialty Start Date End Date Rik Alan DO [address] [place] [address] PCP - General Family Medicine 04/17/16 documented as of this encounter
--- OUTSIDE RECORDS SUMMARY | 2023-11-08 12:44 | External Medical Summary | Summary of Care ---
Author Name Unknown Organization [facility] Address [address] [facility] [place] [address] Phone [phone] Care Team Providers Care Director Human Services Name Role Phone Rik Alan DO Primary Care Provider [phone] [phone] Reason for Visit * Reason Onset Date Comments Health Maintenance 09/20/2023 Encounter Details Date Type Department Care Team (Late st Contact Info) Description 09/20/2023 Telephone Family Practice [facility] [address] [facility] [place] [address] Rik Alan DO [address] [facility] [place] [address] Health Maintenance Allergies Active Allergy Reactions Criticality Noted Date Comments Baby Oil High 05/15/2022 Other reaction(s): Rash Lisinopril Cough 09/10/2010 Other Allergy (See Comments) Itching 014 BABY OIL Simvastatin 01/24/2008 myalgias documented as of this encounter (statuses as of 09/21/2023) Medications Medication Sig Dispensed Refills Start Date [...] Information Patient not taking.Reported on 09/03/2023 Nystatin 604715 UNIT/GM External Powder 3 times a day. [...] as of this encounter (statuses as of 09/21/2023) Active Problems Problem Noted Date Diagnosed Date [...] as of this encounter (statuses as of 09/21/2023) Resolved Problems Problem Noted Date Diagnosed Date [...] as of this encounter (statuses as of 09/21/2023) Immunizations Name Administration Dates Next Due COVID-19 mRNA, LNP-s, PF, 18 + or 6-11Yrs (Moderna) 10/31/2021 COVID-19, LNP-s, No Preserve , Alexx-sucrose, Ages 12+ (Pfizer) 06/02/2022 Covid-19 Ad26, Single Dose (Aaron/J&J) 03/09/2021 Pneumococcal Conjugate Vacci ne, 20-valent ([id number]) 02/24/2023 SEASONAL INFLUENZA, PF, 6 M & [...] 10/26/2023 11:00 AM EST Office Visit Urology, [facility] [address] [facility] [place] [address] Candido Sanford MD [address] [facility] [address] [place] [address] 11/12/2023 1:00 PM EST Office Visit Orthopaedics [facility] [address] [facility] [place] [address] Sree Monsivais MD [address] [facility] [place] [address] 02/09/2024 9:30 AM EDT Cardiac Studies Cardiac Studies, [facility] [address] [facility] [place] [address] 03/07/2024 10:00 AM EDT Office Visit Cardiology, [facility] [address] [facility] [place] [address] Soila Esparza CRNP 132 [facility] [place] [address] 03/07/2024 1:40 PM EDT Office Visit Family Practice [facility] [address] [facility] [place] [address] Rik Alan, DO [address] [facility] [place] [address] Scheduled Procedures Name Priority Associated Diagnoses Date/Ti [...] D LEVEL ONCE IN A LIFETIME-USE SMARTSET# [id number] Completed 02/20/2020, 11/09/2017, 04/14/2016, Additional history exists [...] filedocumented as of this encounter Care Teams Director Human Services Relationship Specialty Start Date End Date Rik Alan DO [address] [place] [address] PCP - General Family Medicine 04/17/16 documented as of this encounter
--- OUTSIDE RECORDS SUMMARY | 2023-11-08 12:44 | External Medical Summary ---
Author Name Unknown Address Unknown Organization K01:LABORATORY [facility] [place] - [address] [place] [address] Laboratory Report Ordering Provider Test Date Status HALEY SOSA 10/26/2023 10:14:32 Final Observation Date Value Abnormality Reference (Units ) Status TSH 10/26/2023 10:14:32 3.55 0.27-4.20 (uIU/mL) Final Performing Location LABORATORY [facility] - [address] [place] [address]
--- OUTSIDE RECORDS SUMMARY | 2023-11-08 12:44 | External Medical Summary | Summary of Care ---
Author Name Unknown Organization [facility] Address [address] [facility] [place] [address] Phone [phone] Care Team Providers Care Land Developer Name Role Phone Rik Alan DO Primary Care Provider [phone] [phone] Reason for Visit * Reason Onset Date Comments Health Maintenance 09/20/2023 Encounter Details Date Type Department Care Team (Late st Contact Info) Description 09/20/2023 Telephone Family Practice [facility] [address] [facility] [place] [address] Rik Alan DO [address] [facility] [place] [address] Health Maintenance Allergies Active Allergy Reactions Criticality [...] Information Patient not taking.Reported on 09/03/2023 Nystatin 016039 UNIT/GM External Powder 3 times a day. [...] (Aaron/J&J) 03/09/2021 Pneumococcal Conjugate Vacci ne, 20-valent ([id number]) 02/24/2023 SEASONAL INFLUENZA, PF, 6 M & [...] 10/26/2023 11:00 AM EST Office Visit Urology, [facility] [address] [facility] [place] [address] Candido Sanford MD 27 [facility] [address] [place] [address] 11/12/2023 1:00 PM EST Office Visit Orthopaedics [facility] [address] [facility] [place] [address] Sree Monsivais MD 132 [facility] [place] [address] 02/09/2024 9:30 AM EDT Cardiac Studies Cardiac Studies, [facility] [address] [facility] [place] [address] 03/07/2024 10:00 AM EDT Office Visit Cardiology, [facility] [address] [facility] [place] [address] Soila Esparza CRNP 132 [facility] [place] [address] 03/07/2024 1:40 PM EDT Office Visit Family Practice [facility] [address] [facility] [place] [address] Rik Alan, DO [address] [facility] [place] [address] Scheduled Procedures Name Priority Associated Diagnoses Date/Ti [...] D LEVEL ONCE IN A LIFETIME-USE SMARTSET# [id number] Completed 02/20/2020, 11/09/2017, 04/14/2016, Additional history exists [...] filedocumented as of this encounter Care Teams Land Developer Relationship Specialty Start Date End Date Rik Alan DO [address] [place] [address] PCP - General Family Medicine 04/17/16 documented as of this encounter
--- OUTSIDE RECORDS SUMMARY | 2023-11-08 12:44 | External Medical Summary | Summary of Care ---
Author Name Unknown Organization [facility] Address [address] [facility] [place] [address] Phone [phone] Care Team Providers Care Automotive Dismantler Name Role Phone Rik Alan DO Primary Care Provider [phone] [phone] Reason for Visit * Reason Onset Date Comments Order Request 10/25/2023 Encounter Details Date Type Department Care Team (Late st Contact Info) Description 10/25/2023 Telephone Family Practice [facility] 200 [facility] [place] [address] Rik Alan DO [address] [facility] [place] [address] Order Request Allergies Active Allergy Reactions Criticality Noted Date Comments Baby Oil High 05/15/2022 Other reaction(s): Rash Lisinopril Cough 09/10/2010 Other Allergy (See Comments) Itching 014 BABY OIL Simvastatin 01/24/2008 myalgias documented as of this encounter (statuses as of 10/25/2023) Medications Medication Sig Dispensed Refills Start Date [...] Information Patient not taking.Reported on 09/03/2023 Nystatin 722273 UNIT/GM External Powder 3 times a day. [...] as of this encounter (statuses as of 10/25/2023) Active Problems Problem Noted Date Diagnosed Date [...] as of this encounter (statuses as of 10/25/2023) Resolved Problems Problem Noted Date Diagnosed Date [...] as of this encounter (statuses as of 10/25/2023) Immunizations Name Administration Dates Next Due COVID-19 mRNA, LNP-s, PF, 18 + or 6-11Yrs (Moderna) 10/31/2021 COVID-19, LNP-s, No Preserve , Alexx-sucrose, Ages 12+ (Pfizer) 06/02/2022 Covid-19 Ad26, Single Dose (Aaron/J&J) 03/09/2021 Pneumococcal Conjugate Vacci ne, 20-valent ([id number]) 02/24/2023 SEASONAL INFLUENZA, PF, 6 M & [...] encounter Miscellaneous Notes * Telephone Encounter - Heena Parrish PA-C [...] Description 10/26/2023 10:30 AM EST [facility] [address] [facility] [place] [id number] Bhavya Birch 132 [facility] [place] [address] 10/26/2023 11:00 AM EST Office Visit Urology, [facility] [address] [facility] [place] [address] Candido Sanford MD [address] [place] [address] [place] [address] 11/12/2023 1:00 PM EST Office Visit Orthopaedics [facility] 132 [facility] [place] [address] Sree Monsivais MD 132 [facility] [place] [address] 02/09/2024 9:30 AM EDT Cardiac Studies Cardiac Studies, [facility] [address] [facility] [place] [address] 03/07/2024 10:00 AM EDT Office Visit Cardiology, [facility] [address] [facility] [place] [address] Soila Esparza CRNP 132 [facility] [place] [address] 03/07/2024 1:40 PM EDT Office Visit Family Practice [facility] 200 [facility] [place] [address] Rik Alan, DO 200 [facility] [place] [address] Scheduled Procedures Name Priority Associated Diagnoses Date/Ti me COLONOSCOPY FLEXIBLE PROXIMAL DIAGNOSTIC Recall History of colon polyps Health Maintenance Due Date Last Done Comments Albumin/Creatinine Ratio 1979 HPV/Co-Test 1991 Cervical Cancer Screening 12/25/2011 Pap Smear 12/25/2011 12/25/2008, 11/30, 01/13/2005, Additional history exists Depression Screening 07/14/2023 07/14/2022 COVID-19 Vaccine ( - season) 2023 06/02/2022, 10/31/2021, 03/09/2021 GFR 02/25/2024 [...] D LEVEL ONCE IN A LIFETIME-USE SMARTSET# [id number] Completed 02/20/2020, 11/09/2017, 04/14/2016, Additional history exists [...] site documented in this encounter Care Teams Automotive Dismantler Relationship Specialty Start Date End Date Rik Alan DO [address] [place] [address] PCP - General Family Medicine 04/17/16 documented as of this encounter
--- OUTSIDE RECORDS SUMMARY | 2023-11-08 12:44 | External Medical Summary | Summary of Care ---
Author Name Unknown Organization [facility] Address [address] [facility] [address] Phone [phone] Care Team Providers Care Report Developer Name Role Phone KimberlyRik houston Primary Care Provider [phone] Reason for Visit * Reason Comments Acute Swelling of feet, li ghtheaded. Encounter Details Date Type Department Care Team (Late st Contact Info) Description 10/12/2023 1:40 PM EST Office Visit Family Practice [facility] [address] [facility] [place] [address] Heena Parrish PA-C [address] [facility] [place] [address] Cellulitis of left lower leg*; Senile osteoporosis; Dyslipidemia, goal LDL below 160; Essential hypertension with goal blood pressure less than 140/90 Allergies Active Allergy Reactions Criticality Noted Date Comments Baby Oil High 05/15/2022 Other reaction(s): Rash Lisinopril Cough 09/10/2010 Other Allergy (See Comments) Itching 014 BABY OIL Simvastatin 01/24/2008 myalgias documented as of this encounter (statuses as of 10/12/2023) Medications Medication Sig Dispensed Refills Start Date [...] Information Patient not taking.Reported on 09/03/2023 Nystatin 687601 UNIT/GM External Powder 3 times a day. 0 05/06/2023 Active valACYclovir HCl 1 GM Oral Tablet (Valtrex)Indication s:Cold sore Take 2 Tablets by mouth in the morning and 2 Tablets before bedtime. For 1 day for cold sores. 4 Tablet 11 07/29/2023 Active Apixaban 5 MG Oral Tablet (Eliquis)Indication s:Essential hypertension with goal blood pressure less than 140/90 TAKE 1 TABLET BY MOUTH IN THE MORNING AND 1 TABLET BEFORE BEDTIME. 180 Tablet 0 08/12/2023 4 Active Gabapentin 600 MG Oral Tablet (Neurontin)Indicati ons:Idiopathic [...] other meds). 90 Tablet 3 10/12/2023 Active Doxycycline Hyclate 100 MG Oral CapsuleIndications: Cellulitis of left lower leg Take 1 Capsule by mouth in the morning and 1 Capsule before bedtime. Do all this for 10 days. Until gone.. 20 Capsule 0 10/12/2023 3 Active Sotalol HCl 80 MG Oral Tablet (Betapace) TAKE 1/2 TABLET BY MOUTH IN THE MORNING THEN 1 TABLET IN THE EVENING 68 Tablet 11 09/16/2022 3 Discontinu ed(Refill) Atorvastatin Calcium 40 MG Oral Tablet (Lipitor)Indication s:Dyslipidemia, goal LDL below 160 TAKE 1 TABLET BY MOUTH IN THE MORNING. 90 Tablet 3 05/05/2022 3 Discontinu ed(Refill) Losartan Potassium 50 MG Oral Tablet (Cozaar)Indications :Essential hypertension with goal blood pressure less than 140/90 Take 1 Tablet by mouth in the morning. 90 Tablet 3 01/13/2023 3 Discontinu ed(Refill) Alendronate Sodium 70 MG Oral Tablet (Fosamax)Indication s:Senile osteoporosis Take 1 Tablet by mouth once for 1 dose. 12 Tablet 3 09/03/2023 3 Discontinu ed(Refill) Levothyroxine Sodium 100 MCG Oral Tablet (Levoxyl) Take 1 Tablet by mouth in the morning. (at least 30 min prior to breakfast or other meds). 90 Tablet 3 09/03/2023 3 Discontinu ed(Refill) documented as of this encounter (statuses as of 10/12/2023) Active Problems Problem Noted Date Diagnosed Date [...] as of this encounter (statuses as of 10/12/2023) Resolved Problems Problem Noted Date Diagnosed Date [...] as of this encounter (statuses as of 10/12/2023) Immunizations Name Administration Dates Next Due COVID-19 mRNA, LNP-s, PF, 18 + or 6-11Yrs (Moderna) 10/31/2021 COVID-19, LNP-s, No Preserve , Alexx-sucrose, Ages 12+ (Pfizer) 06/02/2022 Covid-19 Ad26, Single Dose (Aaron/J&J) 03/09/2021 Pneumococcal Conjugate Vacci ne, 20-valent ([id number]) 02/24/2023 SEASONAL INFLUENZA, PF, 6 M & [...] Sign Reading Time Taken Comments Blood Pressure 112/70 10/12/2023 1:41 PM EST Pulse 81 10/12/2023 1:41 PM EST Temperature 36.9 C (98.5 F) 10/12/2023 1:41 PM ES T Respiratory Rate 16 10/12/2023 1:41 PM EST Oxygen Saturation 93% 10/12/2023 1:41 PM EST Inhaled Oxygen Concentration - - Weight 177.4 kg (391 lb 1.9 oz) 10/12/2023 1:41 PM EST Height 160 cm (5' 2.99") 10/12/2023 1:41 PM EST Body Mass Index 69.31 10/12/2023 1:41 PM EST documented in this encounter Progress Notes * Heena Parrish PA-C - 10/12/2023 2:03 PM EST Subjective Dipesh Cox is a 62 year old female that presents for Acute (Swelling of feet, lightheaded. ) 62 y/o female presents c/o left lower leg swelling and blistering. Patient states she popped the blister a few days ago, and now there is redness and purulent discharge from the blister. She states she continues to have recurrent issues with leg swelling and rashes on the lower leg secondary to venous stasis. She currently denies any fevers, chills, chest pain, shortness for breath, nausea, vomiting, diarrhea. Allergies medications reviewed and verified. Patient states she does not take her hydrochlorothiazide because it causes her to pee too much at nighttime. Objective BP 112/70 | Pulse 81 | Temp 36.9 C (98.5 F) (Tympanic) | Resp 16 | Ht 1.6 m (5' 2.99") | Wt (!)177.4 kg (391 lb 1.9 oz) | LMP 12/12/2004 | SpO2 93% | BMI 69.31 kg/m | BSA 2.81 m Body mass index is 69.31 kg/m. BP Readings from Last 3 Encounters: 10/12/23 112/70 09/03/23 110/62 08/27/23 128/64 Wt Readings from Last 3 Encounters: 10/12/23 (!) 177.4 kg (391 lb 1.9 oz) 09/03/23 (!) 176.9 kg (390 lb) 08/27/23 (!) 174.4 kg (384 lb 6.4 oz) Physical Exam Vitals and nursing note reviewed. Constitutional: General: She is not in acute distress. Appearance: Normal appearance. HENT: Head: Normocephalic and atraumatic. Eyes: General: No scleral icterus. Extraocular Movements: Extraocular movements intact. Conjunctiva/sclera: Conjunctivae normal. Pupils: Pupils are equal, round, and reactive to light. Cardiovascular: Rate and Rhythm: Normal rate and regular rhythm. Heart sounds: No murmur heard. No friction rub. No gallop. Pulmonary: Effort: Pulmonary effort is normal. Breath sounds: Normal breath sounds. No stridor. No wheezing, rhonchi or rales. Skin: General: Skin is warm and dry. Comments: There is +2 edema to the bilateral lower legs. On the left lower leg, there is an open wound with purulent discharge. There is surrounding erythema to the lower anterior leg. It is mildly tender to palpation. No calf tenderness, redness appreciated. Neurological: General: No focal deficit present. Mental Status: She is alert and oriented to person, place, and time. Psychiatric: Mood and Affect: Mood normal. Behavior: Behavior normal. Assessment and plan 1. Cellulitis of left lower leg - Doxycycline Hyclate 100 MG Oral Capsule; Take 1 Capsule by mouth in the morning and 1 Capsule before bedtime. Do all this for 10 days. Until gone.. Dispense: 20 Capsule; Refill: 0 2. Senile osteoporosis - Alendronate Sodium 70 MG Oral Tablet (Fosamax); Take 1 Tablet by mouth once a week. Dispense: 12 Tablet; Refill: 3 3. Dyslipidemia, goal LDL below 160 - Atorvastatin Calcium 40 MG Oral Tablet (Lipitor); Take 1 Tablet by mouth in the morning. Dispense: 90 Tablet; Refill: 3 4. Essential hypertension with goal blood pressure less than 140/90 - Losartan Potassium 50 MG Oral Tablet (Cozaar); Take 1 Tablet by mouth in the morning. Dispense: 90 Tablet; Refill: 3 We will start her on doxycycline to cover cellulitis. She will elevate the legs to the best of her ability to help reduce the swelling. She will reach out with any acutely worsening symptoms. She also request 90 day prescriptions to be sent in to [facility]. This is done for her today. She will be getting new insurance at the new year. She is not sure which 1 she will be getting yet,and this is a major stressor for her. Total time today including reviewing chart before the visit, pertinent labs, imaging reports, face to face time, and documentation time was 20 minutes. The above was discussed and understanding was expressed. Heena Parrish PA-C documented in this encounter Nursing Notes * Sierra Fonseca LPN - 10/12/2023 1:40 PM EST Patient presents today for her left leg and left foot. She said that it is really hurting her and she has a few blisters on the bottom of her left leg. documented in this encounter Plan of Treatment Upcoming Encounters Date Type Department Care Team (Late st Contact Info) Description 10/26/2023 10:30 AM EST Laboratory Laboratory, [facility] [address] [facility] [place] [address] BirchBhavya brady [facility] [address] [facility] [place] [address] 10/26/2023 11:00 AM EST Office Visit Urology, [facility] [address] [facility] [place] [address] Candido Sanford MD [address] [facility] [address] [place] [address] 11/12/2023 1:00 PM EST Office Visit Orthopaedics [facility] [address] [facility] [place] [address] Sree Monsivais MD [address] [facility] [place] [address] 02/09/2024 9:30 AM EDT Cardiac Studies Cardiac Studies, [facility] [place] [address] 03/07/2024 10:00 AM EDT Office Visit Cardiology, [facility] [address] [place] [address] Soila Esparza CRNP [address] [place] [address] 03/07/2024 1:40 PM EDT Office Visit Family Practice [facility] [address] [facility] [place] [address] Rik Alan, DO [address] [facility] [place] [address] Scheduled Procedures Name Priority Associated Diagnoses Date/Ti [...] D LEVEL ONCE IN A LIFETIME-USE SMARTSET# [id number] Completed 02/20/2020, 11/09/2017, 04/14/2016, Additional history exists [...] as of this encounter Visit Diagnoses Diagnosis Cellulitis of left lower leg- Primary Cellulitis and abscess of leg, except foot Senile osteoporosis Dyslipidemia, goal LDL below 160 Other and unspecified hyperlipidemia Essential hypertension with goal blood pressure less than 140/90 documented in this encounter Care Teams Report Developer Relationship Specialty Start Date End Date Rik Alan DO [address] [place] [address] PCP - General Family Medicine 04/17/16 documented as of this encounter
--- OUTSIDE RECORDS SUMMARY | 2023-11-08 12:45 | External Medical Summary | Summary of Care ---
Author Name Unknown Organization [facility] Address [address] [facility] [place] [address] Phone [phone] Care Team Providers Care Human Factors Advisor Lead Name Role Phone Rik Alan DO Primary Care Provider [phone] Reason for Visit * Reason Onset Date Comments Re-Check Medication Administration 08/27/2023 Flu an d/or Pneumo Inj Encounter Details Date Type Department Care Team Description 08/27/2023 Office Visit Family Practice [facility] [address] [facility] [place] [address] Rik Alan DO [address] [place] [address] Idiopathic polyneuropathy*; Need for prophylactic vaccination and inoculation against influenza; Injury of left hand, subsequent encounter; Senile osteoporosis Allergies Active Allergy Reactions Severity Noted Date Comments Baby Oil High 05/15/2022 Other reaction(s): Rash Lisinopril Cough 09/10/2010 Other Allergy (See Comments) Itching 014 BABY OIL Simvastatin 01/24/2008 myalgias documented as of this encounter (statuses as of 08/30/2023) Medications Medication Sig Dispensed Refills Start Date [...] the morning. 90 Tablet 3 3 Active Oxybutynin Chloride ER 5 MG Oral Tablet Extended Release 24 Hour (Ditropan XL)Indications:Uri nary frequency Take 1 Tablet by mouth in the morning. Do not cut, crush or chew. 30 Tablet 11 3 Active Fluocinolone Acetonide 0.01 % Otic Oil (DermOtic) Applied to the ears once daily for 2 weeks and then once weekly for maintenance. 20 mL 1 3 Active Nystatin [id number] UNIT/GM External Powder 3 times a day. 0 3 Active valACYclovir HCl 1 GM Oral Tablet (Valtrex)Indicatio ns:Cold sore Take 2 Tablets by mouth in the morning and 2 Tablets before bedtime. For 1 day for cold sores. 4 Tablet 11 3 Active predniSONE 10 MG Oral Tablet (Deltasone)Indicat ions:Bronchitis, complicated Take 5 tablets by mouth for 2 days, 4 tabs for 2 days, 3 tabs for 2 days, 2 tabs for 2 days 1 tab for 2 days 30 Tablet 0 3 Active Apixaban 5 MG Oral Tablet (Eliquis)Indicatio ns:Essential hypertension with goal blood pressure less than 140/90 TAKE 1 TABLET BY MOUTH IN THE MORNING AND 1 TABLET BEFORE BEDTIME. 180 Tablet 0 3 024 Active Levothyroxine Sodium 100 MCG Oral Tablet (Levoxyl) Take 1 Tablet by mouth in the morning. (at least 30 min prior to breakfast or other meds). 30 Tablet 11 3 Active Gabapentin 600 MG Oral Tablet (Neurontin)Indicat ions:Idiopathic polyneuropathy Take 1 Tablet by mouth at bedtime. 30 Tablet 5 3 Active Gabapentin 300 MG Oral Capsule (Neurontin) TAKE ONE CAPSULE BY MOUTH AT BEDTIME 30 Capsule 5 2 023 Discontinued Alendronate Sodium 70 MG Oral Tablet Effervescent (Binosto) Take by mouth. 0 023 Discontinued(Re fill) Alendronate Sodium 70 MG Oral Tablet (Fosamax)Indicatio ns:Senile osteoporosis Take 1 Tablet by mouth once for 1 dose. 4 Tablet 3 3 023 documented as of this encounter (statuses as of 08/30/2023) Active Problems Problem Noted Date FLETCHER (acute [...] as of this encounter (statuses as of 08/30/2023) Resolved Problems Problem Noted Date Resolved Date Body mass index (BMI) of 50.0 to 59.9 in adult 1 01/11/2021 02/11/2022 Overview: Per Obesity protocol Prediabetes 06/09/2021 12/11/2021 Overview: Per Prediabetes protocol Super obese 08/16/2017 08/16/2017 Bilateral hip fractures 07/30/2015 02/20/20 18 Age-related osteoporosis with current pathologic al [...] as of this encounter (statuses as of 08/30/2023) Immunizations Name Administration Dates Next Due COVID-19 mRNA, LNP-s, PF, 18 + or 6-11Yrs (Moderna) 10/31/2021 COVID-19, LNP-s, No Preserve , Alexx-sucrose, Ages 12+ (Pfizer) 06/02/2022 Covid-19 Ad26, Single Dose (Aaron/J&J) 03/09/2021 Pneumococcal Conjugate Vacci ne, 20-valent ([id number]) 02/24/2023 SEASONAL INFLUENZA, PF, 6 M & [...] in this encounter Progress Notes * Rik Alan DO - 08/27/2023 11:48 AM EDT Subjective: Dipesh [...] Senile osteoporosis M81.0 PAF (paroxysmal atrial fibrillation) ([facility]) I48.0 Body mass index (BMI) of 60.0 to 69.9 in adult ([facility]) Z68.44 Neuropathy G62.9 Medical home patient encounter Z00.8 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 20 mL 1 Nystatin [id number] UNIT/GM External Powder 3 times a day. [...] symptoms or fever? No Have you had Guillain-Overbrook Syndrome (an illness that causes paralysis) within [...] today? No Patient allergic to latex? No C Stock: No Immunization(s) verified: Yes, Immunization Name: [...] refill of alendronate. documented in this encounter Plan of Treatment Upcoming Encounters Date Type Specialty Care Team Description 09/03/2023 Office Visit Cardiology Soila Esparza CRNP [address] [place] [address] 09/24/2023 Office Visit Orthopedics Sree Monsivais MD [address] [place] [address] 10/26/2023 Office Visit Urology Candido Sanford MD [address] [place] [address] [place] [id number] 02/11/2024 Office Visit Cardiology Kristan Hill, DO [address] [facility] [place] [id number] 03/07/2024 Office Visit Family Medicine Rik Alan, DO [address] [facility] [place] [address] Pending Results Name Type Priority Associated Diagnoses Date /Time XR HAND 3 OR MORE VIEWS Medical Imaging Routine Injury of left hand, subsequent encounter 08/27/2023 12:19 PM EDT Scheduled Procedures Name Priority Associated Diagnoses Date/Ti me COLONOSCOPY FLEXIBLE PROXIMAL DIAGNOSTIC Recall History of colon polyps Health Maintenance Due Date Last Done Comments Albumin/Creatinine Ratio 1979 HPV/Co-Test 1991 Cervical Cancer Screening 12/25/2011 Pap Smear 12/25/2011 12/25/2008, 11/30, 01/13/2005, Additional history exists COVID-19 Vaccine (4 - Booster for Aaron series) 07/28/2022 06/02/2022, 10/31/2021, 03/09/2021 Depression Screening 07/14/2023 07/14/2022 GFR 02/25/2024 02/24/2023, 07/0 03/2022, 05/23/2022, Additional [...] D LEVEL ONCE IN A LIFETIME-USE SMARTSET# [id number] Completed 02/20/2020, 11/09/2017, 04/14/2016, Additional history exists [...] as of this encounter Visit Diagnoses Diagnosis Idiopathic polyneuropathy- Primary Unspecified hereditary and idiopathic peripheral neuropathy Need for prophylactic vaccination and inoculation against influenza Injury of left hand, subsequent encounter Senile osteoporosis documented in this encounter Care Teams Human Factors Advisor Lead Relationship Specialty Start Date End Date Rik Alan, DO [address] [place] [address] PCP - General Family Medicine 04/17/16 documented as of this encounter
--- OUTSIDE RECORDS SUMMARY | 2023-11-08 12:45 | External Medical Summary | Summary of Care ---
Author Name Unknown Organization [facility] Address [address] [facility] [place] [address] Phone [phone] Care Team Providers Care Materials Mgmt Tech Name Role Phone MunirRik irizarry Primary Care Provider [phone] Reason for Referral * Precert (Within 10 days (routine)) - Authorized Specialty Diagnoses / Procedures Referred By Devan kulkarni Referred To Contact Cardiac Studies Diagnoses HTN, goal below 130/80 PAF (paroxysmal atrial fibrillation) (HCC) Nonrheumatic aortic valve stenosis Procedures ECHO, COMPLETE (2D), TRANS-THORACIC Soila Esparza CRNP [address] [place] [address] Referral ID Status Reason Start Date Expiration Date V isits Requested Visits Authorized [id number] Authorized Precert 09/03/2023 999 999 Reason for Visit * Reason Comments Follow Up Encounter Details Date Type Department Care Team Description 09/03/2023 Office Visit Cardiology, [facility] [address] [place] [address] Soila Esparza CRNP [address] [place] [address] PAF (paroxysmal atrial fibrillation) (HCC)*; Tachy-brennan syndrome (HCC); HTN, goal below 130/80; Dyslipidemia, goal LDL below 160; Nonrheumatic aortic valve stenosis Allergies Active Allergy Reactions Severity Noted Date Comments Baby Oil High 05/15/2022 Other reaction(s): Rash Lisinopril Cough 09/10/2010 Other Allergy (See Comments) Itching 014 BABY OIL Simvastatin 01/24/2008 myalgias documented as of this encounter (statuses as of 09/03/2023) Medications Medication Sig Dispensed Refills Start Date [...] IN THE EVENING 68 Tablet 11 2 09/16/20 23 Active Additional Information Patient taking differently: 40 mg Oral BID (.AM/PM), Reported on 05/10/2023 hydroCHLOROthiazide 25 MG Oral Tablet (Hydrodiuril)Indica tions:Essential hypertension with goal blood pressure less than 140/90 TAKE 1 TABLET BY MOUTH ONCE DAILY. 90 Tablet 3 2 09/03/20 23 Active Atorvastatin Calcium 40 MG Oral Tablet (Lipitor)Indication s:Dyslipidemia, goal LDL below 160 TAKE 1 TABLET BY MOUTH IN THE MORNING. 90 Tablet 3 2 09/03/20 23 Active hydrOXYzine HCl 25 MG Oral Tablet TAKE 1 TO 2 TABLETS BY MOUTH EVERY 6 HOURS NEEDED FOR ITCHING 20 Tablet 5 2 11/04/20 23 Active Additional Information Patient not taking.Reported on 09/03/2023 Losartan Potassium 50 MG Oral Tablet (Cozaar)Indications [...] Information Patient not taking.Reported on 09/03/2023 Nystatin 300540 UNIT/GM External Powder 3 times a day. 0 3 Active valACYclovir HCl 1 GM Oral Tablet (Valtrex)Indication s:Cold sore Take 2 Tablets by mouth in the morning and 2 Tablets before bedtime. For 1 day for cold sores. 4 Tablet 11 3 Active Additional Information Patient not taking.Reported on 09/03/2023 Apixaban 5 MG Oral Tablet (Eliquis)Indication s:Essential hypertension with goal blood pressure less than 140/90 TAKE 1 TABLET BY MOUTH IN THE MORNING AND 1 TABLET BEFORE BEDTIME. 180 Tablet 0 3 08/11/20 24 Active Levothyroxine Sodium 100 MCG Oral Tablet (Levoxyl) Take 1 Tablet by mouth in the morning. (at least 30 min prior to breakfast or other meds). 30 Tablet 11 3 Active Gabapentin 600 MG Oral Tablet (Neurontin)Indicati ons:Idiopathic polyneuropathy Take 1 Tablet by mouth at bedtime. 30 Tablet 5 3 Active predniSONE 10 MG Oral Tablet (Deltasone)Indicati ons:Bronchitis, complicated Take 5 tablets by mouth for 2 days, 4 tabs for 2 days, 3 tabs for 2 days, 2 tabs for 2 days 1 tab for 2 days 30 Tablet 0 3 09/03/20 23 Discontinued documented as of this encounter (statuses as of 09/03/2023) Active Problems Problem Noted Date FLETCHER (acute [...] as of this encounter (statuses as of 09/03/2023) Resolved Problems Problem Noted Date Resolved Date [...] as of this encounter (statuses as of 09/03/2023) Immunizations Name Administration Dates Next Due COVID-19 mRNA, LNP-s, PF, 18 + or 6-11Yrs (Moderna) 10/31/2021 COVID-19, LNP-s, No Preserve , Alexx-sucrose, Ages 12+ (Pfizer) 06/02/2022 Covid-19 Ad26, Single Dose (Aaron/J&J) 03/09/2021 Pneumococcal Conjugate Vacci ne, 20-valent ([id number]) 02/24/2023 SEASONAL INFLUENZA, PF, 6 M & [...] Date Smoking Tobacco: Never Smokeless Tobacco: Never Tobacco Cessation:Counseling Given: Not Answered Alcohol Use Standard Drinks/Week Comments Yes 0 (1 standard drink = 0.6 oz pur e alcohol) rare Sex Assigned at Date Recorded Female 02/14/2019 9:12 AM E DT Job Start Date Occupation Industry Not on file Not on file Not on file documented as of this encounter Last Filed Vital Signs Vital Sign Reading Time Taken Comments Blood Pressure 110/62 09/03/2023 8:54 AM EDT Pulse 48 09/03/2023 8:54 AM EDT Temperature - - Respiratory Rate - - Oxygen Saturation - - Inhaled Oxygen Concentration - - Weight 176.9 kg (390 lb) 09/03/2023 8:54 AM EDT Height - - Body Mass Index 69.1 05/26/2023 12:40 PM EDT documented in this encounter Progress Notes * FLYNN Taylor - 09/03/2023 9:06 AM EDT 09/03/2023 Cardiology Follow Up Primary Relocation Manager: Dr. Duggan/ Dr. Hill (EP) Cardiac Problems: Recurrent A-fib with rVR Tachy brennan syndrome HTN Aortic valve stenosis HPI: Dipesh Cox is a 62 year old female presents for routine follow up. Last seen in our office by EP on 05/14/23, Patient had been in the ER for non- cardiac reasons, but was noted to have a HR in the 30's. Her Sotaol was reduced to 40mg BID prior to seeing Dr. Pedro. She recommended to continue low dose sotalol and advised that she will eventually need a pacemaker Patient is very resistant to the idea of a pacemaker. Discussed her reasons why, fear of a battery dying and no one knowing because she had "heard this before" She also seems to correlate the need with a pacemaker to be related to bypass surgery. Explained to patient that the two things are not necessarily related and that our concern with her based on prior testing is an electrical issues not plumbing. Last seen by primary cardiology, Dr. Duggan on 01/13/23 feeling well at that time. Cardiac history: Admitted to [facility] 10/23/2021 secondary to chest discomfort, and palpitations. In the ER ECG demonstrated atrial fibrillation with rapid ventricular response. Intravenous Cardizem and heparin infusion initiated. She was evaluated by Cardiology October 23, 2021 after spontaneous conversion to sinus rhythm. Mildly elevated troponin during hospitalization attributed to atrial fibrillation with rapid ventricular response (demand ischemia). Prescribed Eliquis 5 mg twice daily. Overall today, She presents feeling well from a cardiovascular standpoint. Denies any change in herfunctional capacity. BP is at target. She is currently not taking her HCTZ daily, only as needed when she feels excess fluid. She states that she has been urinating a lot recently and having additional bladder issues. She is going to be seeing urology soon. She reports compliance with all other medications with no untoward effects. REVIEW OF SYSTEMS: See HPI for pertinent positives. All others negative other than those noted in the HPI. CONSTITUTIONAL: No change in weight, No weakness, No fatigue and No fevers, No sweats or chills. PULMONARY: No cough, sputum, or hemoptysis, No wheezing, No shortness or breath and No recent change in breathing. CARDIOVASCULAR: No chest pain, No dyspnea on exertion, No edema, No palpitations and No syncope. GASTROINTESTINAL: No abdominal pain, No change in bowel habits, No significant heartburn, No nausea, No vomiting, No diarrhea, No constipation, No blood in stools or black tarry stools. No dysphagia. HEMATOLOGIC: No abnormal bleeding and No bruising. NEUROLOGICAL: Normal balance, No headaches and No weakness. Review of patient's allergies indicates: Allergen Reactions Baby Oil Other reaction(s): Rash Lisinopril Cough Other Allergy (See Comments) Itching BABY OIL Zocor [Simvastatin] myalgias Current Outpatient Medications Medication Sig Dispense Refill [...] 0.5 Tablets before bedtime.) 68 Tablet 11 hydroCHLOROthiazide 25 MG Oral Tablet (Hydrodiuril) TAKE 1 TABLET BY MOUTH ONCE DAILY. 90 Tablet 3 Atorvastatin Calcium 40 MG Oral Tablet (Lipitor) TAKE 1 TABLET BY MOUTH IN THE MORNING. 90 Tablet 3 Losartan Potassium 50 MG Oral Tablet (Cozaar) Take 1 Tablet by mouth in the morning. 90 Tablet 3 Oxybutynin Chloride ER 5 MG Oral Tablet Extended Release 24 Hour (Ditropan XL) Take 1 Tablet by mouth in the morning. Do not cut, crush or chew. 30 Tablet 11 Apixaban 5 MG Oral Tablet (Eliquis) TAKE 1 TABLET BY MOUTH IN THE MORNING AND 1 TABLET BEFORE BEDTIME. 180 Tablet 0 Levothyroxine Sodium 100 MCG Oral Tablet (Levoxyl) Take 1 Tablet by mouth in the morning. (at least30 min prior to breakfast or other meds). 30 Tablet 11 Gabapentin 600 MG Oral Tablet (Neurontin) Take 1 Tablet by mouth at bedtime. 30 Tablet 5 hydrOXYzine HCl 25 MG Oral Tablet TAKE 1 TO 2 TABLETS BY MOUTH EVERY 6 HOURS NEEDED FOR ITCHING (Patient not taking: Reported on 09/03/2023) 20 Tablet 5 Fluocinolone Acetonide 0.01 % Otic Oil (DermOtic) Applied to the ears once daily for 2 weeks and then once weekly for maintenance. (Patient not taking: Reported on 09/03/2023) 20 mL 1 Nystatin [id number] UNIT/GM External Powder 3 times a day. (Patient not taking: Reported on 09/03/2023) valACYclovir HCl 1 GM Oral Tablet (Valtrex) Take 2 Tablets by mouth in the morning and 2 Tablets before bedtime. For 1 day for cold sores. (Patient not taking: Reported on 09/03/2023) 4 Tablet 11 No current facility-administered medications for this visit. Past Medical History: Diagnosis Date Calculus of [...] name: Naeem Chi Number of children: 0 Occupational History Occupation: [employer] Comment: [employer] Tobacco Use Smoking status: Never Smokeless tobacco: Never Vaping Use Vaping Use: Never used Substance and Sexual Activity Alcohol use: Yes Comment: rare Drug use: No Sexual activity: Yes Partners: Male Other Topics Concern Seat Belt Yes Self-Exams No Comment: breast Social History Narrative Originally from [place]. Graduated from [employer]. 3 Sisters - Nai and Jeannine, 1 brother OBJECTIVE/PHYSICAL EXAMINATION: BP 110/62 | Pulse 48 | Wt (!) 176.9 kg (390 lb) | LMP 12/12/2004 | BMI 69.10 kg/m | BSA 2.8 m General: No acute distress. A+Ox3. HEENT: Normocephalic. Atraumatic. PERRL. EOMI. Conjunctiva and sclera clear. NECK: No carotid bruits. No JVD. Carotid upstrokes are brisk. Heart: RRR. S1 and S2 noted. +2/6 systolic murmur. No rubs or gallops. PMI non displaced. Lungs: Clear to auscultation. No wheezes.No rhonchi. No rales. Abdomen: Normal bowel sounds. Soft. Nontender. No masses or organomegaly. No abdominal bruits. Extremities: No edema. No clubbing or cyanosis. Pulses: radial=2/4, posterior tibial=2/4, dorsalis pedis = 2/4. NEURO: No focal deficits. PSYCH: Appropriate affect and insight. DATA Labs & Imaging Reviewed Below: [facility] 05/06/2023: SB 43bpm QTc 414ms 06/17/2022: SB 48bpm QTc 452ms 05/17/2022: SB 59bpm QTC 433ms Lexiscan nuclear stress test report December 31, 2021: Lexiscan nuclear cardiac stress test negative for ischemia. Gated SPECT images reveals normal myocardial thickening and wall motion. The LV ejection fraction is calculated at 66%. 2D echocardiogram [facility] report summary October 23, 2021: Left ventricular ejection fraction 60-65% Moderate aortic valve sclerosis without stenosis Mild left atrial dilatation 14 day Zio 08/28/2022: Patient had a min HR of 40 bpm, max HR of 171 bpm, and avg HR of 61 bpm. Predominant underlying rhythm was Sinus Rhythm. 26 Supraventricular Tachycardia runs occurred, the run with the fastest interval lasting 7 beats with a max rate of 171 bpm, the longest lasting 32.2 secs with an avg rate of 108 bpm. Isolated SVEs were rare (<1.0%), SVE Couplets were rare (<1.0%), and SVE Triplets were rare (<1.0%). Isolated VEs were rare (<1.0%), VE Couplets were rare (<1.0%), and no VE Triplets were present. Ventricular Bigeminy was present. Agree with above. Occasional salvos of SVT with the longest lasting 32 seconds. Low heart rate of 40 beats per minute likely occurred during sleep. 7 day [facility] monitor report summary: Patient had a min HR of 43 bpm, max HR of 210 bpm, and avg HR of 71 bpm. Predominant underlying rhythm was Sinus Rhythm. 13 Supraventricular Tachycardia runs occurred, the run with the fastest interval lasting 8 beats with a max rate of 210 bpm, the longest lasting 9 beats with an avg rate of 106 bpm. Isolated SVEs were rare (<1.0%), SVE Couplets were rare (<1.0%), and SVE Triplets were rare (<1.0%). Isolated VEs were rare (<1.0%), VE Couplets were rare (<1.0%), and no VE Triplets were present. Agree with the above interpretation and findings. At least some of the patient's SVT appears to be due to sinus arrhythmia which occurred in the very admissions clinician hours most likely during sleep. The remainder of the SVT could have been PAF butwere infrequent and very short. ASSESSMENT/PLAN: 62 year old year old female 1. PAF (paroxysmal atrial fibrillation) (HCC) 2. Tachy-brennan syndrome (HCC) - EKG today SB rate 49, patient is asymptomatic. -Continue Sotalol 40mg BID -Continue Eliquis 5mg PO BID -Keep EP follow up as scheduled. -discussed with patient natural progression of A-fib and possible need for pacemaker in the future. - EKG - ECHO, COMPLETE (2D), TRANS-THORACIC; Future 3. HTN, goal below 130/80 -Well controlled. Continue Losartan 50mg QD. Patient taking HCTZ intermittently while attempting tohave bladder issues addressed. - EKG - ECHO, COMPLETE (2D), TRANS-THORACIC; Future 4. Dyslipidemia, goal LDL below 160 -Last labs 6 months ago, above target. -Encouraged heart healthy diet, reduction of high fat, fried and high sugar foods -Continue Atorvastatin 40mg QD -Labs prior to next follow up - LIPID PANEL WITH DIRECT LDL IF TG IS HIGH; Future 5. Nonrheumatic aortic valve stenosis -last echo 2020 showing mild . Patient denies any change or decline in her functional capacity. -She continues with intermittent dizziness improved with medication dosages. -Repeat echo prior to follow up for surveillance/progression of valvular disease. - ECHO, COMPLETE (2D), TRANS-THORACIC; Future DISPOSITION: Follow up 6 months or if symptoms worsen/fail to improve. All questions were answered to the patients satisfaction. Patient advised to report to ED with any and all emergencies. The patient agrees to the above plan and will call with additional questions or concerns. [facility], [address] [place] [address] I spent a total of 35 minutes on the date of service in preparation, delivery, and documentation ofthe care provided to Dipesh Cox excluding any time spent in the performance of separately billedservices. This chart was completed in part utilizing [employer] Speech Voice Recognition Software. Grammatical errors, random word insertions, pronoun errors, and incomplete sentences are an occasional consequence of this system due to software limitations, ambient noise, and hardware issues. Any formal questions or concerns about the content, text, or information contained within the body of this dictation should be directly addressed to the provider for clarification. documented in this encounter Procedure Notes * Buddy Maria MD - 09/03/2023 9:01 AM EDTAssociated Order(s): EKG REASON FOR STUDY: routine CONCLUSIONS: Sinus bradycardia High QRS voltage may be normal variant or due to lve Borderline ECG When compared with ECG of 17-JUN-2022 08:58, T wave inversion now evident in Inferior leads Ventricular Rate: 49 Atrial Rate: 49 OR Interval: 168 QRS Duration: 82 QT/QTc: 468/422 ms P-R-T [place]: 39 : 0 : 1 degrees documented in this encounter Nursing Notes * Lelo Hoang CMA - 09/03/2023 8:53 AM EDT Examination Room: 1 Name: Dipesh Cox Date of : (1960) Reason for Visit: 6m Interim Hospitalization(s): none Problems/Concerns: denied Chest Pain/SOB: denied My [facility] is a way you can talk to your provider online through e-mail. Would you like to sign up? I can activate it for you? ALREADY ACTIVE Patient was instructed to not get up on the exam table until directed and assisted by their provider; patient is to remain seated in the chair/ wheelchair/ exam table for fall prevention and safety reasons. Patient is aware to have assistance to step down off exam table with personnel. Patient voiced full comprehension of instructions. r documented in this encounter Plan of Treatment Upcoming Encounters Date Type Specialty Care Team Description 09/24/2023 Office Visit Orthopedics Sree Monsivais MD [address] [place] [address] 10/26/2023 Office Visit Urology Candido Sanford MD [address] [place] [address] [place] [address] 02/09/2024 Cardiac Studies Cardiac Studies 03/07/2024 Office Visit Cardiology Soila Esparza CRNP [address] [place] [address] 03/07/2024 Office Visit Family Medicine Rik Alan, DO [address] [place] [address] Scheduled Orders Name Type Priority Associated Diagnoses Orde r Schedule ECHO, COMPLETE (2D), TRANS-THORACIC Echocardiology Routine HTN, goal below 130/80 PAF (paroxysmal atrial fibrillation) (HCC) Nonrheumatic aortic valve stenosis Expected: 09/03/2023 (Approximate), Expires: 10/03/2025 LIPID PANEL WITH DIRECT LDL IF TG IS HIGH Lab Routine Dyslipidemia, goal LDL below 160 Expected: 01/28/2024, Expires: 09/03/2024 Scheduled Procedures Name Priority Associated Diagnoses Date/Ti [...] D LEVEL ONCE IN A LIFETIME-USE SMARTSET# [id number] Completed 02/20/2020, 11/09/2017, 04/14/2016, Additional history exists [...] Procedure Name Priority Date/Time Associated Diagnosis Comments OR ECG ROUTINE ECG W/LEAST 12 LDS W/I&R Routine 09/03/2023 9:01 AM EDT HTN, goal below 130/80 Tachy-brennan syndrome (HCC) PAF (paroxysmal atrial fibrillation) (HCC) documented in this encounter Results * EKG (09/03/2023 9:01 AM EDT) 09/03/2023 9:01 AM EDT Procedure Note Buddy Maria MD - 09/03/2023 9:01 AM EDT REASON FOR STUDY: routine CONCLUSIONS: Sinus bradycardia High QRS voltage may be normal variant or due to lve Borderline ECG When compared with ECG of 17-JUN-2022 08:58, T wave inversion now evident in Inferior leads Ventricular Rate: 49 Atrial Rate: 49 OR Interval: 168 QRS Duration: 82 QT/QTc: 468/422 ms P-R-T [place]: 39 : 0 : 1 degrees Soila PRUETT EKG [facility] documented in this encounter Visit Diagnoses Diagnosis PAF (paroxysmal atrial fibrillation) (HCC)- Primary Atrial fibrillation Tachy-brennan syndrome (HCC) Sinoatrial node dysfunction HTN, goal below 130/80 Unspecified essential hypertension Dyslipidemia, goal LDL below 160 Other and unspecified hyperlipidemia Nonrheumatic aortic valve stenosis Aortic valve disorders documented in this encounter Care Teams Materials Mgmt Tech Relationship Specialty Start Date End Date Rik Alan, [address] [facility] [place] [address] PCP - General Family Medicine 04/17/16 documented as of this encounter
--- OUTSIDE RECORDS SUMMARY | 2023-11-08 12:45 | External Medical Summary | Summary of Care ---
Author Name Unknown Organization [facility] Address [address] [facility] [place] [address] Phone [phone] Care Team Providers Care Billboard Poster Helper Name Role Phone Rik Alan DO Primary Care Provider [phone] Reason for Visit * Reason Onset Date Comments Advice 08/31/2023 Test Results 08/31/2023 Encounter Details Date Type Department Care Team Description 08/31/2023 Telephone Family Practice [facility] [address] [facility] [place] [address] Rik Alan DO [address] [place] [address] Advice; Test Results Allergies Active Allergy Reactions [...] THE MORNING. 90 Tablet 3 2 09/03/20 Active hydrOXYzine HCl 25 MG Oral Tablet TAKE 1 TO 2 TABLETS BY MOUTH EVERY 6 HOURS NEEDED FOR ITCHING 20 Tablet 5 2 11/04/20 Active Additional Information Patient not taking.Reported on [...] Information Patient not taking.Reported on 09/03/2023 Nystatin [id number] UNIT/GM External Powder 3 times a day. [...] 1 TABLET BEFORE BEDTIME. 180 Tablet 0 09/14/202 3 08/11/20 24 Active Levothyroxine Sodium 100 MCG Oral Tablet (Levoxyl) Take 1 Tablet by mouth in the morning. (at least 30 min prior to breakfast or other meds). 30 Tablet 11 3 Active Alendronate Sodium 70 MG Oral Tablet (Fosamax)Indication s:Senile osteoporosis Take 1 Tablet by mouth once for 1 dose. 4 Tablet 3 3 09/04/20 23 Active Gabapentin 600 MG Oral Tablet (Neurontin)Indicati [...] (Aaron/J&J) 03/09/2021 Pneumococcal Conjugate Vacci ne, 20-valent ([id number]) 02/24/2023 SEASONAL INFLUENZA, PF, 6 M & [...] encounter Miscellaneous Notes * Telephone Encounter - Nani Mcleod LPN [...] the nurse line. * Telephone Encounter - Rik Alan DO - 09/01/2023 12:40 PM EDT [...] Test Results: Patient Primary Care Provider : Rik Alan DO Tests Results Requested : Xray left hand Date of Test : 08/27/23 Location of Test: [facility] Ordering Provider: Dayanna Callback Number: [phone] Patient has been made aware that the [...] Office Visit Orthopedics Sree Monsivais MD [address] [place] [address] 10/26/2023 Office Visit Urology Candido Sanford MD [address] [place] [address] [place] [address] 02/09/2024 Cardiac Studies Cardiac Studies 03/07/2024 Office Visit Cardiology Soila Esparza CRNP [address] [place] [address] 03/07/2024 Office Visit Family Medicine Rik Alan, DO [address] [place] [address] Scheduled Procedures Name Priority Associated Diagnoses Date/Ti [...] D LEVEL ONCE IN A LIFETIME-USE SMARTSET# [id number] Completed 02/20/2020, 11/09/2017, 04/14/2016, Additional history exists [...] filedocumented as of this encounter Care Teams Billboard Poster Helper Relationship Specialty Start Date End Date Rik Alan, DO [address] [facility] [place] [address] PCP - General Family Medicine 04/17/16 documented as of this encounter
--- OUTSIDE RECORDS SUMMARY | 2023-11-08 12:45 | External Medical Summary | Summary of Care ---
Author Name Unknown Organization [facility] Address [address] [facility] [place] [address] Phone [phone] Care Team Providers Care Stringed Instrument Repairer Name Role Phone Rik Alan DO Primary Care Provider [phone] Reason for Visit * Reason Onset Date Comments Advice 08/31/2023 Test Results 08/31/2023 Encounter Details Date Type Department Care Team Description 08/31/2023 Telephone Family Practice [facility] 200 [place] [address] Rik Alan DO 200 [place] [address] Advice; Test Results Allergies Active Allergy Reactions [...] Information Patient not taking.Reported on 09/03/2023 Nystatin 299020 UNIT/GM External Powder 3 times a day. [...] (Aaron/J&J) 03/09/2021 Pneumococcal Conjugate Vacci ne, 20-valent ([id number]) 02/24/2023 SEASONAL INFLUENZA, PF, 6 M & [...] of Test : 08/27/23 Location of Test: [facility] Ordering Provider: Dayanna Callback Number: [phone] Patient has been made aware that the [...] Monsivais MD [address] [place] [address] 10/26/2023 Office Visit Urology Candido Sanford MD [address] [place] [address] [place] [address] 02/09/2024 Cardiac Studies Cardiac Studies 03/07/2024 Office Visit Cardiology Soila Esparza CRNP [address] [place] [address] 03/07/2024 Office Visit Family Medicine Rik Alan, DO [address] [place] [address] Scheduled Procedures Name Priority Associated Diagnoses Date/Ti [...] D LEVEL ONCE IN A LIFETIME-USE SMARTSET# [id number] Completed 02/20/2020, 11/09/2017, 04/14/2016, Additional history exists [...] filedocumented as of this encounter Care Teams Stringed Instrument Repairer Relationship Specialty Start Date End Date Rik Alan, DO [address] [place] [address] PCP - General Family Medicine 04/17/16 documented as of this encounter
--- OUTSIDE RECORDS SUMMARY | 2023-11-08 12:45 | External Medical Summary | Summary of Care ---
Author Name Unknown Organization [facility] Address [address] [facility] [place] [address] Phone [phone] Care Team Providers Care Manufacturing Operator Name Role Phone Sheila Alan DO Primary Care Provider [phone] Reason for Referral * Evaluate & Treat - Unlimited Visits (Within 10 days (routine)) - Authorized Specialty Diagnoses / Procedures Referred By Devan kulkarni Referred To Contact Orthopaedic Surgery / Orthopedics Diagnoses [facility] arthritis Sheila Alan DO [address] [place] [address] Referral ID Status Reason Start Date Expiration Date Visits Requested Visits Authorized [id number] Authorized Specialty Services Required 09/06/2023 999 999 [...] Practice State Bradly Garay [address] [place] [address] Sheila Alan DO [address] [place] [address] Advice; Test Results Allergies Active Allergy Reactions [...] Information Patient not taking.Reported on 09/03/2023 Nystatin 277191 UNIT/GM External Powder 3 times a day. [...] 12+ (Pfizer) 06/02/2022 Covid-19 Ad26, Single Dose ([employer]/J&J) 03/09/2021 Pneumococcal Conjugate Vacci ne, 20-valent ([id number]) 02/24/2023 SEASONAL INFLUENZA, PF, 6 M & [...] encounter Miscellaneous Notes * Addendum Note - Sheila Alan, DO - 09/06/2023 10:55 AM EDTAddended by: [...] of Test : 08/27/23 Location of Test: [facility] Ordering Provider: Dayanna Callback Number: [phone] Patient has been made aware that the [...] Monsivais MD [address] [place] [address] 10/26/2023 Office Visit Urology Candido Sanford MD [address] [facility] [address] [facility] [place] [address] 02/09/2024 Cardiac Studies Cardiac Studies 03/07/2024 Office Visit Cardiology Soila Esparza CRNP [address] [place] [address] 03/07/2024 Office Visit Family Medicine Sheila Alan DO [address] [place] [address] Scheduled Procedures Name Priority Associated Diagnoses Date/Ti [...] D LEVEL ONCE IN A LIFETIME-USE SMARTSET# [id number] Completed 02/20/2020, 11/09/2017, 04/14/2016, Additional history exists [...] hand documented in this encounter Care Teams Manufacturing Operator Relationship Specialty Start Date End Date Sheila Alan, DO [address] [place] [address] PCP - General Family Medicine 04/17/16 documented as of this encounter
--- OUTSIDE RECORDS SUMMARY | 2023-11-08 12:46 | External Medical Summary | Summary of Care ---
Author Name Unknown Organization [facility] Address [address] [facility] [place] [address] Phone [phone] Care Team Providers Care Geometry Professor Name Role Phone Dayanna Rik Shamika CH Primary Care Provider [phone] Reason for Visit * Reason Comments Outpatient Testing Encounter Details Date Type Department Care Team Description 08/13/2023 Laboratory Laboratory [facility] [place] [address] [place] [address] [place], [facility] [address] [place] [address] Allergies Active Allergy Reactions Severity Noted Date Comments Baby Oil High 05/15/2022 Other reaction(s): Rash Lisinopril Cough 09/10/2010 Other Allergy (See Comments) Itching 014 BABY OIL Simvastatin 01/24/2008 myalgias documented as of this encounter (statuses as of 08/13/2023) Medications Medication Sig Dispensed Refills Start Date [...] IN THE EVENING 68 Tablet 11 09/16/2022 09/16/2023 Active Additional Information Patient taking differently: 40 mg Oral BID (.AM/PM), Reported on 05/10/2023 hydrOXYzine HCl 25 MG Oral Tablet TAKE 1 TO 2 TABLETS BY MOUTH EVERY 6 HOURS NEEDED FOR ITCHING 20 Tablet 5 11/04/2022 11/04/2023 Active Gabapentin 300 MG Oral Capsule (Neurontin) TAKE ONE CAPSULE BY MOUTH AT BEDTIME 30 Capsule 5 11/10/2022 11/10/2023 Active Losartan Potassium 50 MG Oral Tablet (Cozaar)Indications :Essential hypertension with goal blood pressure less than 140/90 Take 1 Tablet by mouth in the morning. 90 Tablet 3 01/13/2023 Active Levothyroxine Sodium 88 MCG Oral Tablet (Levoxyl) Take 1 Tablet by mouth in the morning. (at least 30 min prior to breakfast or other meds). 90 Tablet 3 02/25/2023 Active Oxybutynin Chloride ER 5 MG Oral Tablet Extended Release 24 Hour (Ditropan XL)Indications:Urin lazara frequency Take 1 Tablet by mouth in the morning. Do not cut, crush or chew. 30 Tablet 11 05/10/2023 Active Fluocinolone Acetonide 0.01 % Otic Oil (DermOtic) Applied to the ears once daily for 2 weeks and then once weekly for maintenance. 20 mL 1 05/26/2023 Active Nystatin 908519 UNIT/GM External Powder (Nystop) 3 times a day. 0 05/06/2023 Activ e valACYclovir HCl 1 GM Oral Tablet (Valtrex)Indication s:Cold sore Take 2 Tablets by mouth in the morning and 2 Tablets before bedtime. For 1 day for cold sores. 4 Tablet 11 07/29/2023 Active predniSONE 10 MG Oral Tablet (Deltasone)Indicati ons:Bronchitis, complicated Take 5 tablets by mouth for 2 days, 4 tabs for 2 days, 3 tabs for 2 days, 2 tabs for 2 days 1 tab for 2 days 30 Tablet 0 07/29/2023 Active Apixaban 5 MG Oral Tablet (Eliquis)Indication s:Essential hypertension with goal blood pressure less than 140/90 TAKE 1 TABLET BY MOUTH IN THE MORNING AND 1 TABLET BEFORE BEDTIME. 180 Tablet 0 08/12/2023 08/11/2024 Active documented as of this encounter (statuses as of 08/13/2023) Active Problems Problem Noted Date FLETCHER (acute [...] as of this encounter (statuses as of 08/13/2023) Resolved Problems Problem Noted Date Resolved Date [...] as of this encounter (statuses as of 08/13/2023) Immunizations Name Administration Dates Next Due COVID-19 mRNA, LNP-s, PF, 18 + or 6-11Yrs (Moderna) 10/31/2021 COVID-19, LNP-s, No Preserve , Alexx-sucrose, Ages 12+ (Pfizer) 06/02/2022 Covid-19 Ad26, Single Dose (Aaron/J&J) 03/09/2021 Pneumococcal Conjugate Vacci ne, 20-valent ([id number]) 02/24/2023 Seasonal Influenza, PF, 6 mo ns & Above, IM , (Flulaval) 08/25/2022,09/09/2021,08/27/2020,2018,08/16/2018 Seasonal Influenza, Quadriva lent, No Preserve, IM [...] Encounters Date Type Specialty Care Team Description 08/27/2023 Office Visit Family Medicine Rik Alan, DO [address] [place] [address] 09/03/2023 Office Visit Cardiology Soila Esparza CRNP [address] [place] [address] 09/24/2023 Office Visit Orthopedics Sree Monsivais MD [address] [place] [address] 10/26/2023 Office Visit Urology Candido Sanford MD [address] [place] [address] [place] [address] 02/11/2024 Office Visit Cardiology Kristan Hill, DO [address] [facility] [place] [address] Scheduled Procedures Name Priority Associated Diagnoses Date/Ti me COLONOSCOPY FLEXIBLE PROXIMAL DIAGNOSTIC Recall History of colon polyps Health Maintenance Due Date Last Done Comments Albumin/Creatinine Ratio 1979 HPV/Co-Test 1991 Cervical Cancer Screening 12/25/2011 Pap Smear 12/25/2011 12/25/2008, 11/30, 01/13/2005, Additional history exists COVID-19 Vaccine (4 - Booster for Aaron series) 07/28/2022 06/02/2022, 10/31/2021, 03/09/2021 Depression Screening 07/14/2023 07/14/2022 Influenza Vaccine (FLU shot) (#1) 2023 08/25/2022, 09/09/2021, 08/27/2020, Additional history exists GFR 02/25/2024 02/24/2023, 07/0 03/2022, 05/23/2022, Additional history exists TSH 02/25/2024 02/24/2023, 04/30, 02/18/2022, Additional history exists Mammogram 04/16/2024 04/16/2023, 03/29, 09/20/2007 DXA Scan 02/09/2025 02/09/2023, 10/29, 10/29/2015, Additional history exists Diabetes Screening 02/24/2026 02/24/2023, 0 02/24/2023, 06/02/2022, Additional history exists COLONOSCOPY-EVERY 5 YRS AGES 18-100 12/24/2027 12/24/2022 Lipid Panel 02/25/2028 02/24/2023, 12/30, 04/23/2022, Additional history exists DTaP,Tdap,and Td Vaccines (3 - Td or Tdap) 02/14/2029 02/14/2019, 05/08/2008 Fecal Occult Blood Test Discontinued 11/09/2013 VITAMIN D LEVEL ONCE IN A LIFETIME-USE SMARTSET# [id number] Completed 02/20/2020, 11/09/2017, 04/14/2016, Additional history exists Zoster Vaccines Completed 08/25/2022, 09/09/2021 Colonoscopy Discontinued 12/24/2022 Colorectal Cancer Screening Discontinued Pneumococcal Vaccine: Pediatrics (0 to 5 Years) and At-Risk Patients (6 to 64 Years) Aged Out 02/24/2023 No longer eligible based on patient's age to complete this topic Cologuard Discontinued GARDASIL-HPV IMMUNIZATION SERIES Aged Out [...] filedocumented as of this encounter Care Teams Geometry Professor Relationship Specialty Start Date End Date Rik Alan, DO [address] [place] [address] PCP - General Family Medicine 04/17/16 documented as of this encounter
--- OUTSIDE RECORDS SUMMARY | 2023-11-08 12:46 | External Medical Summary | Summary of Care ---
Author Name Unknown Organization [facility] Address [address] [facility] [place] [address] Phone [phone] Care Team Providers Care Radiologic Technician Name Role Phone Dayanna Rik Shamika CH Primary Care Provider [phone] Reason for Visit * Reason Comments Follow Up L foot pain Encounter Details Date Type Department Care Team Description 07/19/2023 Office Visit Podiatry [facility] [address] [place] [address] Jacki Cano DPM [address] [place] [address] Left foot pain*; Pes planus of both feet; Lower extremity edema; Primary osteoarthritis of left foot; Sinus tarsi syndrome of left ankle Allergies Active Allergy Reactions Severity Noted Date Comments Baby Oil High 05/15/2022 Other reaction(s): Rash Lisinopril Cough 09/10/2010 Other Allergy (See Comments) Itching 014 BABY OIL Simvastatin 01/24/2008 myalgias documented as of this encounter (statuses as of 07/19/2023) Medications Medication Sig Dispensed Refills Start Date [...] Information Patient taking differently: 40 mg Oral BID(AM/PM), Reported on 05/10/2023 Apixaban 5 MG Oral Tablet (Eliquis)Indication s:Essential hypertension with goal blood pressure less than 140/90 TAKE 1 TABLET BY MOUTH IN THE MORNING AND 1 TABLET BEFORE BEDTIME. 180 Tablet 3 05/15/2022 08/03/2023 Active hydrOXYzine HCl 25 MG Oral Tablet [...] maintenance. 20 mL 1 05/26/2023 Active Nystatin 550923 UNIT/GM External Powder (Nystop) 3 times a day. 0 05/06/2023 Activ e Hospital, Clinic, or Other Facility Administered Medication Ordered Dose Route Frequency Start Date End Date Status bupivacaine HCl (Sensorcaine) 0.5 % (PF) inj 5 mgIndications:Pes planus of both feet,Lower extremity edema,Left foot pain,Primary osteoarthritis of left foot,Sinus tarsi syndrome of left ankle 5 mg IJ ONCE 07/19/2023 07/19/2023 Ac tive dexamethasone sodium phosphate 20 MG/5ML inj 4 mgIndications:Pes planus of both feet,Lower extremity edema,Left foot pain,Primary osteoarthritis of left foot,Sinus tarsi syndrome of left ankle 4 mg IJ ONCE 07/19/2023 07/19/2023 Ac tive betamethasone acet & sod phos (Celestone Soluspan) inj 6 mgIndications:Pes planus of both feet,Lower extremity edema,Left foot pain,Primary osteoarthritis of left foot,Sinus tarsi syndrome of left ankle 6 mg IX ONCE 07/19/2023 07/19/2023 Ac tive documented as of this encounter (statuses as of 07/19/2023) Active Problems Problem Noted Date FLETCHER (acute [...] as of this encounter (statuses as of 07/19/2023) Resolved Problems Problem Noted Date Resolved Date [...] as of this encounter (statuses as of 07/19/2023) Immunizations Name Administration Dates Next Due COVID-19 mRNA, LNP-s, PF, 18 + or 6-11Yrs (Moderna) 10/31/2021 COVID-19, LNP-s, No Preserve , Alexx-sucrose, Ages 12+ (Pfizer) 06/02/2022 Covid-19 Ad26, Single Dose (Aaron/J&J) 03/09/2021 Pneumococcal Conjugate Vacci ne, 20-valent ([id number]) 02/24/2023 Seasonal Influenza, PF, 6 mo ns [...] as of this encounter Progress Notes * Jacki Cano, MARIA ISABEL - 07/19/2023 8:00 AM EDT Podiatry Established Patient Note [facility] Name: Dipesh Cox : 1960 Date: 07/19/2023 CHIEF COMPLAINT: Left foot pain- follow up HISTORY OF PRESENT ILLNESS: This patient is a 62 year old female who presents today with complaintsof left foot pain. She is requesting a steroid injection today. She went to urgent care a couple weeks ago asking for a shot, but was misuse of the ortho urgent care as they do not do injections. Shedenies any other complaints. She is not a diabetic. Picking up her new shoes tomorrow. 07/19/2023- Today, pt presents for follow up. States the STJ injection was helpful and would like totry another one. Going to the [employer] today. Past Medical History: Diagnosis Date Calculus of kidney Depressive disorder, not elsewhere classified Depression Female infertility Infertility, Female HLD (hyperlipidemia) HTN, goal to be determined Hypothyroidism Obesity, BMI not known Obesity Other psoriasis Psoriasis Past Surgical History: Procedure Laterality Date COLONOSCOPY, DIAGNOSTIC (RECTUM) 12/24/2022 benign adenomatous polyp, diverticulosis, repeat 5 yrs / [facility] CYSTOSCOPY 03/18/2005 under anesthesia CYSTOSCOPY 03/24/2005 stent removal REPAIR HIP FRACTURE(S), W/FIXATION Bilateral 07/05/2015 Dr. Ratliff Family History Problem Relation Age of Onset [...] on file Occupational History Occupation: [employer] Comment: [employer] Social Needs Financial resource strain: Not on file Food insecurity: Worry: Not on file Inability: Not on file Transportation needs: Medical: Not on file Non-medical: Not on file Tobacco Use Smoking status: Never Smoker Smokeless tobacco: Never Used Substance and Sexual Activity Alcohol use: Yes Comment: rare Drug use: No Sexual activity: Yes Partners: Male Lifestyle Physical activity: Days per week: Not on file Minutes per session: Not on file Stress: Not on file Relationships Social connections: Talks on phone: Not on file Gets together: Not on file Attends yarsani service: Not on file Active member of club or organization: Not on file Attends meetings of clubs or organizations: Not on file Relationship status: Not on file Intimate partner violence: Fear of current or ex partner: Not on file Emotionally abused: Not on file Physically abused: Not on file Forced sexual activity: Not on file Other Topics Concern Service Not Asked Blood Transfusions Not Asked Caffeine Concern Not Asked Occupational Exposure Not Asked Hobby Hazards Not Asked Sleep Concern Not Asked Stress Concern Not Asked Weight Concern Not Asked Special Diet Not Asked Back Care Not Asked Exercise Not Asked Bike Helmet Not Asked Seat Belt Yes Self-Exams No Comment: breast Social History Narrative Originally from [place]. Graduated from [employer] 3 Sisters - Nai and Jeannine, 1 brother Current Outpatient Medications Medication Sig Dispense Refill Nystatin 944493 UNIT/GM External Powder (Nystop) 3 times a day. Tylenol PM Extra Strength 500-25 MG Oral [...] 0.5 Tablets before bedtime.) 68 Tablet 11 Apixaban 5 MG Oral Tablet (Eliquis) TAKE 1 TABLET BY MOUTH IN THE MORNING AND 1 TABLET BEFORE BEDTIME. 180 Tablet 3 hydrOXYzine HCl 25 MG Oral Tablet TAKE 1 TO 2 TABLETS BY MOUTH EVERY 6 HOURS NEEDED FOR ITCHING 20 Tablet 5 Gabapentin 300 MG Oral Capsule (Neurontin) TAKE ONE CAPSULE BY MOUTH AT BEDTIME 30 Capsule 5 Losartan Potassium 50 MG Oral Tablet (Cozaar) Take 1 Tablet by mouth in the morning. 90 Tablet 3 Levothyroxine Sodium 88 MCG Oral Tablet (Levoxyl) Take 1 Tablet by mouth in the morning. (at least 30 min prior to breakfast or other meds). 90 Tablet 3 Oxybutynin Chloride ER 5 MG Oral Tablet Extended Release 24 Hour (Ditropan XL) Take 1 Tablet by mouth in the morning. Do not cut, crush or chew. 30 Tablet 11 Fluocinolone Acetonide 0.01 % Otic Oil (DermOtic) Applied to the ears once daily for 2 weeks and then once weekly for maintenance. 20 mL 1 No current facility-administered medications for this visit. ALLERGIES: Review of patient's allergies indicates: Allergen Reactions Baby Oil Other reaction(s): Rash Lisinopril Cough Other Allergy (See Comments) Itching BABY OIL Zocor [Simvastatin] myalgias REVIEW OF SYSTEMS: CONSTITUTIONAL: No change in weight, No weakness, No fatigue and No fevers, sweats, or chills EYE: No recent significant change in vision and No eye pain, redness, discharge EARS: No ear pain and No recent change in hearing NOSE: No history of frequent colds or sinusitis and No nasal stuffiness PULMONARY: No cough, sputum, or hemoptysis and No recent change in breathing CARDIOVASCULAR: No chest pain and No shortness of breath EXTREMITIES: Ingrowing nail, medial border, left great toe SKIN/INTEGUMENTARY: No edema, No rash and No itching NEUROLOGIC: Normal balance, No headaches, No seizures and No weakness PSYCHIATRIC: No depression, No anxiety and No psychosis LEFT FOCUSED PODIATRIC EXAM: Vitals: There were no vitals filed for this visit. General: Patient is awake alert oriented to person place time. No apparent distress. Vascular: DP/PT pulses palpable. CFT < 3 sec 1-5. Edema noted. Temperature gradient is normal warm to cold. Lymphedema noted. Neurologic: Protective sensation intact to light touch. Sensation to sharp/dull is intact. Dermatological: Skin is normal in appearance with no open lesions or interdigital macerations. Nails 1-5 are elongated and thickened. Pedal hair is noted. Musculoskeletal: POP noted to the TMTJ and TN joint. No pain with active or passive ROM of the digits or ankle joint. Muscle strength is 5/5 for all muscle groups of the lower extremity, mone. Pes planus. DIAGNOSTIC STUDIES: 3 views of the left foot (01/26/2023) FINDINGS Diffuse osseous demineralization. No radiographically apparent fracture. No dislocation. There are degenerative changes throughout the foot, greatest and severe in the talonavicular joint. Pes planusdeformity. Hallux valgus deformity. Atherosclerotic vascular calcifications. IMPRESSION IMPRESSION Degenerative changes, greatest and severe in the talonavicular joint. No acute findings. PROCEDURE: Written consent was obtained. The area was cleansed with alcohol and 3 cc of 1.0 cc of 0.5 marcaine plain, 1.0 cc of Betamethasone and 1 cc of Dexamethasone was administered to the left STJ. Hemostasis was achieved and a bandaid was applied. Pt tolerated the procedure well without any complications. ASSESSMENT: 1. Left foot pain 2. Pes planus, mone 3. OA, TN joint, left foot 4. Lymphedema 5. Sinus tarsi syndrome, left foot PLAN: - Xrays personally reviewed and discussed with the pt. All questions answered. I was able to pull up he old xrays to show the progression of her deformity. - I explained the arthritis is severe and conservatively, she should continue with good, supportiveshoes, topicals, bracing and discussed a boot. Information given to see if this is covered from herinsurance. Will call to let us know if she wants this. Will schedule with nurse to be fitted if shewould like this. - I also explained with the degree of deformity and arthritic changes, she will likely always have some level of discomfort to the foot. - She is seeing [facility] next week for new shoes and encouraged her to move forward with these. - We also discussed possible surgical intervention. I explained this would need to be performed in [place], but with her lymphedema and weight, they will likely not perform this. The lymphedema is concerning for any surgical procedure. I offered to place a referral for them, however, she declined. - Written consent was obtained and the left STJ was injected. Explained this may or may not help her. Also again explained with the degree of her deformity and arthritis she will always have pain to her foot. - Picking up her new shoes tomorrow. - Pt to RTC PRN. Instructed to call with any problems or questions. Can have a repeat injection every 3 months. Jacki Cano DPM documented in this encounter Nursing Notes * SANDRA Castillo - 07/19/2023 7:55 AM EDT Pt presents today for L foot injection Last injection 04/15/23 SANDRA Castillo documented in this encounter Miscellaneous Notes * Addendum Note - Jacki Cano DPM - 07/19/2023 8:15 AM EDTAddended by: JACKI CANO on: 07/19/2023 08:15 AM Modules accepted: Orders * Addendum Note - SANDRA Castillo - 07/19/2023 8:15 AM EDTAddended by: ALBIN ARCHIBALD on: 07/19/2023 08:15 AM Modules accepted: Orders documented in this encounter Plan of Treatment Upcoming Encounters Date Type Specialty Care Team Description 08/11/2023 Office Visit Orthopedics Sree Monsivais MD [address] [facility] [place] [address] 08/27/2023 Office Visit Family Medicine Rik Alan DO [address] [place] [address] 09/03/2023 Office Visit Cardiology Soila Esparza CRNP [address] [place] [address] 10/26/2023 Office Visit Urology Candido Sanford MD [address] [place] [address] [place] [id number] 02/11/2024 Office Visit Cardiology Kristan Hill, DO [address] [facility] [place] [id number] Scheduled Procedures Name Priority Associated Diagnoses Date/Ti me COLONOSCOPY FLEXIBLE PROXIMAL DIAGNOSTIC Recall History of colon polyps Health Maintenance Due Date Last Done Comments Albumin/Creatinine Ratio 1979 HPV/Co-Test 1991 Cervical Cancer Screening 12/25/2011 Pap Smear 12/25/2011 12/25/2008, 11/30, 01/13/2005, Additional history exists COVID-19 Vaccine (4 - Booster for Aaron series) 07/28/2022 06/02/2022, 10/31/2021, 03/09/2021 Depression Screening, Annual for Pts 12 and Over 07/14/2023 07/14/2022 Influenza Vaccine (FLU shot) (#1) [...] D LEVEL ONCE IN A LIFETIME-USE SMARTSET# [id number] Completed 02/20/2020, 11/09/2017, 04/14/2016, Additional history exists [...] as of this encounter Visit Diagnoses Diagnosis Left foot pain- Primary Pain in limb Pes planus of both feet Lower extremity edema Edema 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
--- OUTSIDE RECORDS SUMMARY | 2023-11-08 12:46 | External Medical Summary | Summary of Care ---
Author Name Unknown Organization [facility] Address [address] [facility] [place] [address] Phone [phone] Care Team Providers Care Industrial Training Specialist Name Role Phone Rik Alan DO Primary Care Provider [phone] Reason for Visit * Reason Onset Date Comments Abnormal Test Results 08/20/2023 Encounter Details Date Type Department Care Team Description 08/20/2023 Telephone Family Practice [facility] [place] [address] [facility] [place] [address] Rik Alan DO [address] [facility] [place] [address] Abnormal Test Results Allergies Active Allergy Reactions Severity Noted Date Comments Baby Oil High 05/15/2022 Other reaction(s): Rash Lisinopril Cough 09/10/2010 Other Allergy (See Comments) Itching 014 BABY OIL Simvastatin 01/24/2008 myalgias documented as of this encounter (statuses as of 08/20/2023) Medications Medication Sig Dispensed Refills Start Date End Date Status Tylenol PM Extra Strength 500-25 MG Oral Tablet (diphenhydrAMINE- APAP (sleep)) Take 1 Tablet by mouth at bedtime as needed for Sleep. 0 Active Loperamide HCl 2 MG Oral Tablet (Immodium (A-D)) Take 1 Tablet by mouth 4 times a day as needed for Diarrhea. 0 Active Sotalol HCl 80 MG Oral Tablet (Betapace) TAKE 1/2 TABLET BY MOUTH IN THE MORNING THEN 1 TABLET IN THE EVENING 68 Tablet 11 09/16/2022 09/16/20 23 Active Additional Information Patient taking differently: 40 mg Oral BID (.AM/PM), Reported on 05/10/2023 hydrOXYzine HCl 25 MG Oral Tablet TAKE 1 TO 2 TABLETS BY MOUTH EVERY 6 HOURS NEEDED FOR ITCHING 20 Tablet 5 11/04/2022 11/04/20 23 Active Gabapentin 300 MG Oral Capsule (Neurontin) TAKE ONE CAPSULE BY MOUTH AT BEDTIME 30 Capsule 5 11/10/2022 11/10/20 23 Active Losartan Potassium 50 MG Oral Tablet (Cozaar)Indicatio ns:Essential hypertension with goal blood pressure less than 140/90 Take 1 Tablet by mouth in the morning. 90 Tablet 3 01/13/2023 Active Oxybutynin Chloride ER 5 MG Oral Tablet Extended Release 24 Hour (Ditropan XL)Indications:Ur inary frequency Take 1 Tablet by mouth in the morning. Do not cut, crush or chew. 30 Tablet 11 05/10/2023 Active Fluocinolone Acetonide 0.01 % Otic Oil (DermOtic) Applied to the ears once daily for 2 weeks and then once weekly for maintenance. 20 mL 1 05/26/2023 Active Nystatin 828763 UNIT/GM External Powder (Nystop) 3 times a day. 0 05/06/2023 Activ e valACYclovir HCl 1 GM Oral Tablet (Valtrex)Indicati ons:Cold sore Take 2 Tablets by mouth in the morning and 2 Tablets before bedtime. For 1 day for cold sores. 4 Tablet 11 07/29/2023 Active predniSONE 10 MG Oral Tablet (Deltasone)Indica tions:Bronchitis, complicated Take 5 tablets by mouth for 2 days, 4 tabs for 2 days, 3 tabs for 2 days, 2 tabs for 2 days 1 tab for 2 days 30 Tablet 0 07/29/2023 Active Apixaban 5 MG Oral Tablet (Eliquis)Indicati ons:Essential hypertension with goal blood pressure less than 140/90 TAKE 1 TABLET BY MOUTH IN THE MORNING AND 1 TABLET BEFORE BEDTIME. 180 Tablet 0 08/12/2023 08/11/20 24 Active Levothyroxine Sodium 100 MCG Oral Tablet (Levoxyl) Take 1 Tablet by mouth in the morning. (at least 30 min prior to breakfast or other meds). 30 Tablet 11 08/20/2023 Active Levothyroxine Sodium 88 MCG Oral Tablet (Levoxyl) Take 1 Tablet by mouth in the morning. (at least 30 min prior to breakfast or other meds). 90 Tablet 3 02/25/2023 08/20/20 23 Discontinued documented as of this encounter (statuses as of 08/20/2023) Active Problems Problem Noted Date FLETCHER (acute [...] as of this encounter (statuses as of 08/20/2023) Resolved Problems Problem Noted Date Resolved Date [...] as of this encounter (statuses as of 08/20/2023) Immunizations Name Administration Dates Next Due COVID-19 mRNA, LNP-s, PF, 18 + or 6-11Yrs (Moderna) 10/31/2021 COVID-19, LNP-s, No Preserve , Alexx-sucrose, Ages 12+ (Pfizer) 06/02/2022 Covid-19 Ad26, Single Dose (Aaron/J&J) 03/09/2021 Pneumococcal Conjugate Vacci ne, 20-valent ([id number]) 02/24/2023 Seasonal Influenza, PF, 6 mo ns [...] encounter Miscellaneous Notes * Telephone Encounter - SCOTT Campos ASSIST - 08/20/2023 11:44 AM EDT Provider to address: Increased levothyroxine dosage Reason for Call: Abnormal Test Results Contact: Telephone Call Contact Type: Medication Outcome: Patient aware and agreeable. Total Time including non face to face (minutes): 5 * Telephone Encounter - Rik Alan DO - 08/20/2023 10:07 AM EDT Please call Dipesh; her thyrpod level came back off and I put in for a higher dose of levothyroxine for her. I also put in for a repeat check in two months * Telephone Encounter - Rik Alan DO - 08/20/2023 10:06 AM EDT ----- Message from Amber Hinton RPh sent at 08/13/2023 11:40 AM EDT ----- ----- Message ----- From: Piper [employer] Automated Processing Sent: 08/13/2023 11:02 AM EDT To: Amber Hinton RPh documented in this encounter Plan of Treatment Upcoming Encounters Date Type Specialty Care Team Description 08/27/2023 Office Visit Family Medicine Rik Alan DO [address] [address] 09/03/2023 Office Visit Cardiology Soila Esparza CRNP [address] [place] [address] 09/24/2023 Office Visit Orthopedics Sree Monsivais MD [address] [place] [address] 10/26/2023 Office Visit Urology Candido Sanford MD [address] [place] [address] 02/11/2024 Office Visit Cardiology Kristan Hill, DO [address] [facility] [place] [address] Scheduled Orders Name Type Priority Associated Diagnoses Orde r Schedule TSH WITH FREE T4 IF INDICATED Lab Routine Hypothyroidism due to acquired atrophy of thyroid Expected: 08/20/2023 (Approximate), Expires: 08/19/2024 Scheduled Procedures Name Priority Associated Diagnoses Date/Ti [...] D LEVEL ONCE IN A LIFETIME-USE SMARTSET# [id number] Completed 02/20/2020, 11/09/2017, 04/14/2016, Additional history exists [...] as of this encounter Visit Diagnoses Diagnosis Hypothyroidism due to acquired atrophy of thyroid- Primary documented in this encounter Care Teams Industrial Training Specialist Relationship Specialty Start Date End Date Rik Alan, DO [address] [place] [address] PCP - General Family Medicine 04/17/16 documented as of this encounter
--- OUTSIDE RECORDS SUMMARY | 2023-11-08 12:46 | External Medical Summary | Summary of Care ---
Author Name Unknown Organization [facility] Address [address] [facility] [place] [address] Phone [phone] Care Team Providers Care Bat Carrier Name Role Phone Rik Alan DO Primary Care Provider [phone] Reason for Visit * Reason Comments Medication Refill Encounter Details Date Type Department Care Team Description 08/11/2023 Refill Family Practice [facility] [place] [address] [facility] [place] [address] Rik Alan DO [address] [facility] [place] [address] Encounter for long-term (current) use of medications*; Essential hypertension with goal blood pressure less than 140/90 Allergies Active Allergy Reactions Severity Noted Date Comments Baby Oil High 05/15/2022 Other reaction(s): Rash Lisinopril Cough 09/10/2010 Other Allergy (See Comments) Itching 014 BABY OIL Simvastatin 01/24/2008 myalgias documented as of this encounter (statuses as of 08/12/2023) Medications Medication Sig Dispensed Refills Start Date [...] maintenance. 20 mL 1 05/26/2023 Active Nystatin 654180 UNIT/GM External Powder (Nystop) 3 times a day. 0 05/06/2023 Activ e valACYclovir HCl 1 GM Oral Tablet (Valtrex) Take 2 Tablets by mouth in the morning and 2 Tablets before bedtime. For 1 day for cold sores. 4 Tablet 11 07/29/2023 Active predniSONE 10 MG Oral Tablet (Deltasone) Take [...] as of this encounter (statuses as of 08/12/2023) Active Problems Problem Noted Date FLETCHER (acute [...] as of this encounter (statuses as of 08/12/2023) Resolved Problems Problem Noted Date Resolved Date [...] as of this encounter (statuses as of 08/12/2023) Immunizations Name Administration Dates Next Due COVID-19 mRNA, LNP-s, PF, 18 + or 6-11Yrs (Moderna) 10/31/2021 COVID-19, LNP-s, No Preserve , Alexx-sucrose, Ages 12+ (Pfizer) 06/02/2022 Covid-19 Ad26, Single Dose (Aaron/J&J) 03/09/2021 Pneumococcal Conjugate Vacci ne, 20-valent ([id number]) 02/24/2023 Seasonal Influenza, PF, 6 mo ns [...] Miscellaneous Notes * Telephone Encounter - Kassandra Yoon PA-C - 08/12/2023 8:45 PM EDTSigned Prescriptions: Disp Refills Apixaban 5 MG Oral Tablet (Eliquis) 180 Ta*0 Sig: TAKE 1 TABLET BY MOUTH IN THE MORNING AND 1 TABLET BEFORE BEDTIME. Authorizing Provider: KASSANDRA YOON * Telephone Encounter - Ilene Don CPhT - 08/12/2023 4:22 PM EDTPending Prescriptions: Disp Refills Apixaban 5 MG Oral Tablet (Eliquis) 180 Ta*0 Sig: TAKE 1 TABLET BY MOUTH IN THE MORNING AND 1 TABLET BEFORE BEDTIME. * Telephone Encounter - Ilene Don CPhT - 08/12/2023 4:21 PM EDT Received message from [facility] regarding patient needing labs. Placed call to patient to advise. Pt was agreeable to set up lab appointment. Patient scheduled for 08/13/23. Thank you, Ilene Don CPhT Gun Sealing Machine Operator II [facility] ( [facility]) 08/12/2023,4:21 PM * Telephone Encounter - Amber Hinton [facility] - 08/12/2023 12:04 PM EDTPending Prescriptions: Disp Refills Apixaban 5 MG Oral Tablet (Eliquis) 180 Ta*0 Sig: TAKE 1 TABLET BY MOUTH IN THE MORNING AND 1 TABLET BEFORE BEDTIME. * Telephone Encounter - Amber Hinton [facility] - 08/12/2023 12:02 PM EDT Unable to authorize medication refills for pended medication(s) at this time. Per refill protocol patient should have CBC on file within past year. Reviewed AMP report, Care Gaps/Health Maintenance, medications list, and for any routine labs typically ordered for this patient. Lab orders placed. Please contact patient to advise of labs ordered for blood draw. Fasting is not required. Advise toobtain labs before requesting the next refill. After contacting patient, please forward request to Rik Alan DO. Thanks, Amber Hinton Clinical Pharmacist [facility] ([facility]) (Formerly [facility]) [phone] 08/12/2023, 12:03 PM documented in this encounter Plan of Treatment Upcoming Encounters Date Type Specialty Care Team Description 08/13/2023 Laboratory Laboratory Bhavya Bunn [address] [facility] [place] [address] 08/27/2023 Office Visit Family Medicine Rik Alan DO [address] [place] [address] [address] 09/03/2023 Office Visit Cardiology Soila Esparza CRNP [address] [place] [address] 09/24/2023 Office Visit Orthopedics Sree Monsivais MD [address] [place] [address] 10/26/2023 Office Visit Urology Candido Sanford MD [address] [place] [address] [place] [address] 02/11/2024 Office Visit Cardiology Kristan Hill, [address] [facility] [place] [address] Scheduled Orders Name Type Priority Associated Diagnoses Orde r Schedule CBC Lab Routine Encounter for long-term (current) use of medications Expected: 08/19/2023 (Approximate), Expires: 08/12/2024 Scheduled Procedures Name Priority Associated Diagnoses Date/Ti [...] D LEVEL ONCE IN A LIFETIME-USE SMARTSET# [id number] Completed 02/20/2020, 11/09/2017, 04/14/2016, Additional history exists [...] as of this encounter Visit Diagnoses Diagnosis Encounter for long-term (current) use of medications- Primary Encounter for long-term (current) use of other medications Essential hypertension with goal blood pressure less than 140/90 documented in this encounter Care Teams Bat Carrier Relationship Specialty Start Date End Date Rik Alan, DO [address] [place] [address] PCP - General Family Medicine 04/17/16 documented as of this encounter
--- OUTSIDE RECORDS SUMMARY | 2023-11-08 12:46 | External Medical Summary | Summary of Care ---
Author Name Unknown Organization [facility] Address [address] [facility] [place] [address] Phone [phone] Care Team Providers Care Life Science Technical Officer Name Role Phone Dayanna Rik Shamika CH Primary Care Provider [phone] Reason for Visit * Reason Comments Follow Up L foot pain Encounter Details Date Type Department Care Team Description 07/19/2023 Office Visit Podiatry [facility] [address] [place] [address] Jacki Cano DPM [address] [place] [address] Left foot pain*; Pes planus of both [...] maintenance. 20 mL 1 05/26/2023 Active Nystatin 238192 UNIT/GM External Powder (Nystop) 3 times a day. 0 05/06/2023 Activ e Hospital, Clinic, or Other Facility Administered Medication Ordered Dose Route Frequency Start Date End Date Status bupivacaine HCl (Sensorcaine) 0.5 % (PF) inj 5 mgIndications:Pes planus of both feet,Lower extremity edema,Left foot pain,Primary osteoarthritis of left foot,Sinus tarsi syndrome of left ankle 5 mg IJ ONCE 07/19/2023 07/19/2023 En ded dexamethasone sodium phosphate 20 MG/5ML inj 4 mgIndications:Pes planus of both feet,Lower extremity edema,Left foot pain,Primary osteoarthritis of left foot,Sinus tarsi syndrome of left ankle 4 mg IJ ONCE 07/19/2023 07/19/2023 En ded betamethasone acet & sod phos (Celestone Soluspan) inj 6 mgIndications:Pes planus of both feet,Lower extremity edema,Left foot pain,Primary osteoarthritis of left foot,Sinus tarsi syndrome of left ankle 6 mg IX ONCE 07/19/2023 07/19/2023 En ded documented as of this encounter (statuses as [...] (Aaron/J&J) 03/09/2021 Pneumococcal Conjugate Vacci ne, 20-valent ([id number]) 02/24/2023 Seasonal Influenza, PF, 6 mo ns [...] this encounter Progress Notes * Jacki Cano, STUARTM - 07/19/2023 8:00 AM EDT Podiatry Established Patient Note [facility] Name: Dipesh Cox : 1960 Date: [...] like totry another one. [place] [employer] today. Past Medical History: Diagnosis Date Calculus of kidney Depressive disorder, not elsewhere classified Depression Female infertility Infertility, Female HLD (hyperlipidemia) HTN, goal to be determined Hypothyroidism Obesity, BMI not known Obesity Other psoriasis Psoriasis Past Surgical History: Procedure Laterality Date COLONOSCOPY, DIAGNOSTIC (RECTUM) 12/24/2022 benign adenomatous polyp, diverticulosis, repeat 5 yrs / [facility] CYSTOSCOPY 03/18/2005 under anesthesia CYSTOSCOPY 03/24/2005 stent [...] on file Occupational History Occupation: [employer] Comment: [employer] Social Needs Financial resource strain: Not on [...] file Gets together: Not on file Attends zoroastrianism service: Not on file Active member of [...] Comment: breast Social History Narrative Originally from [place]. Graduated from [employer]. 3 Sisters - Nai and Jeannine, 1 brother Current Outpatient Medications Medication Sig Dispense Refill Nystatin 709759 UNIT/GM External Powder (Nystop) 3 times a [...] this would need to be performed in [place], but with her lymphedema and weight, they [...] Office Visit Orthopedics Sree Monsivais MD [address] [facility] [place] [address] 08/27/2023 Office Visit Family Medicine Rik Alan, DO [address] [place] [address] 09/03/2023 Office Visit Cardiology Soila Esparza CRNP [address] [place] [address] 10/26/2023 Office Visit Urology Candido Sanford MD [address] [place] [address] [place] [address] 02/11/2024 Office Visit Cardiology Kristan Hill, DO [address] [facility] [place] [id number] Scheduled Procedures Name Priority Associated Diagnoses Date/Ti [...] D LEVEL ONCE IN A LIFETIME-USE SMARTSET# [id number] Completed 02/20/2020, 11/09/2017, 04/14/2016, Additional history exists [...] of left ankle documented in this encounter Administered Medications Inactive Administered Medications - up to 3 most recent administrations Medication Order MAR Action Action Date Dose Rate Site betamethasone acet & sod phos (Celestone Soluspan) inj 6 mg 6 mg, Intra-Articular, ONCE, On Wed07/19/23 at 0900, For 1 dose Given 07/19/2023 8:57 AM EDT 6 mg Foot Left bupivacaine HCl (Sensorcaine) 0.5 % (PF) inj 5 mg 5 mg (1 mL), Injection, ONCE, On Wed07/19/23 at 0900, For 1 dose Given 07/19/2023 8:55 AM EDT 5 mg Foot Left dexamethasone sodium phosphate 20 MG/5ML inj 4 mg 4 mg, Injection, ONCE, On Wed07/19/23 at 0900, For 1 dose, Protect from Light Given 07/19/2023 8:56 AM EDT 4 mg Foot Left documented in this encounter Care Teams Life Science Technical Officer Relationship Specialty Start Date End Date Rik Alan, DO [address] [place] [address] PCP - General Family Medicine 04/17/16 documented as of this encounter
--- OUTSIDE RECORDS SUMMARY | 2023-11-08 12:46 | External Medical Summary | Summary of Care ---
Author Name Unknown Organization [facility] Address [address] [facility] [place] [address] Phone [phone] Care Team Providers Care Driver Material Handler Name Role Phone MunirRik irizarry Primary Care Provider [phone] Reason for Visit * Reason Comments Follow Up BL knees Encounter Details Date Type Department Care Team Description 08/11/2023 Office Visit Orthopaedics [facility] [address] [place] [address] Sree Monsivais MD [address] [place] [address] Primary osteoarthritis of left knee*; Primary osteoarthritis of right knee Allergies Active Allergy Reactions Severity Noted Date Comments Baby Oil High 05/15/2022 Other reaction(s): Rash Lisinopril Cough 09/10/2010 Other Allergy (See Comments) Itching 014 BABY OIL Simvastatin 01/24/2008 myalgias documented as of this encounter (statuses as of 08/11/2023) Medications Medication Sig Dispensed Refills Start Date [...] mg Oral BID (.AM/PM), Reported on 05/10/2023 Apixaban 5 MG Oral Tablet (Eliquis)Indication s:Essential hypertension with goal blood pressure less than 140/90 TAKE 1 TABLET BY MOUTH IN THE MORNING AND 1 TABLET BEFORE BEDTIME. 180 Tablet 3 05/15/2022 Active hydrOXYzine HCl 25 MG Oral Tablet [...] maintenance. 20 mL 1 05/26/2023 Active Nystatin 831492 UNIT/GM External Powder (Nystop) 3 times a [...] 2 days 30 Tablet 0 07/29/2023 Active Hospital, Clinic, or Other Facility Administered Medication Ordered Dose Route Frequency Start Date End Date Status lidocaine 1% 1 mL - triamcinolone acetonide 40 mg/mL 1 mL inj 2 mLIndications:Primary osteoarthritis of left knee 2 mL IJ ONCE 08/11/2023 08/11/20 Active lidocaine 1% 1 mL - triamcinolone acetonide 40 mg/mL 1 mL inj 2 mLIndications:Primary osteoarthritis of right knee 2 mL IJ ONCE 08/11/2023 08/11/2023 Active documented as of this encounter (statuses as of 08/11/2023) Active Problems Problem Noted Date FLETCHER (acute [...] as of this encounter (statuses as of 08/11/2023) Resolved Problems Problem Noted Date Resolved Date [...] as of this encounter (statuses as of 08/11/2023) Immunizations Name Administration Dates Next Due COVID-19 mRNA, LNP-s, PF, 18 + or 6-11Yrs (Moderna) 10/31/2021 COVID-19, LNP-s, No Preserve , Alexx-sucrose, Ages 12+ (Pfizer) 06/02/2022 Covid-19 Ad26, Single Dose (Aaron/J&J) 03/09/2021 Pneumococcal Conjugate Vacci ne, 20-valent ([id number]) 02/24/2023 Seasonal Influenza, PF, 6 mo ns [...] Progress Notes * Sree Monsivais MD - 08/11/2023 8:36 AM EDT Dipesh Cox [id number] Dipesh Cox is a 60 year old female who presents for f/u to [facility] for bilateral knee injury/pain, R hip pain I originally saw her for bilateral knee as well as right hip pain on 03/06/2021 Most recent complete visit visit on 11/20/2022 was a telephone encounter for bilateral knee injury/pain, R hip pain and New evaluation of Left shoulder pain. However she was seen since for bilateral procedure only visit. Telephone visit done today rather than in office visit. Dipesh Cox is here unaccompanied Quality: reviewed and agree with Nursing Notes for HPI elements History: History on 03/06/2021 - B/L knee pain and R hip pain. Pain in both knees is chronic however she hadan exacerbation recently. She notes she twisted her L knee while at work at [employer]. Notes both knees bother her. She initially went to [email or web address] where they tried to Xray her and she fell, was transported via EMS to [facility] where she got XRs. I have read the note from that evaluation which was on 02/04/2021. In summary: She presented with 3 days of right knee pain. This occurred after she twisted her knee while trying to go to the restroom. X-rays of the right knee were obtained and the impression was no fractures. She was diagnosed with a differential of contusion, sprain, fracture, dislocation, neurovascular compromise, other. However she was neurovascularly intact on exam. She wasencouraged to ice and minimize weight-bearing and follow up with Orthopedics. She was given a limited (12 tablet) oxycodone/acetaminophen 5/325 prescription on discharge. She notes she cannot get up on the table. Additional history 01/16/2022: She has not had any improvement in the right knee despite steroid injection performed on 03/06/21. No change in left knee pain but is not been treated yet She noted several days of benefit with the right hip following the fluoro guided IA injection of the FA joint by Dr. Warner ([facility] [place] [facility]) on 03/18/2021. However the benefit was not substantial was short-lived. Additional history 01/27/2022: Pt presents for bilateral knee pain. Minimal relief from bilateral Gelsyn series completed on 04/15/2021. Has tried PT and cortisone injections Patient also complained of left shoulder at that visit. Additional history 02/17/2022: Patient notes significant improvement in her left shoulder pain but not resolution. Does not want to talk about her chronic hip or back pain at today's visit as she had originally been scheduled for follow-up the shoulder as well as her chronic hip and back pain. Additional history 03/16/2022: She had substantial improvement from the glenohumeral joint steroid injection I performed at the visit on 02/17/2022. She is very pleased. She also complains of increasing deformity of the left knee region where she reports that it goes out. Which she is complaining about is valgus deformity. Additional history 10/27/2022: Pt presents today for f/u bilateral knee pain. Pt states pain is 9/10. Right knee steroid injectionperformed and Gelsyn series completed on 04/15/2021. Pt is interested today in injections in bilateral knees Additional history 11/20/2022 Has noted improvement in the left knee more than the right knee. Left shoulder has had improvement.She did not end up going to therapy. Since that visit: Received bilateral viscosupplementation Durolane on 12/08/2022. These were of some benefit but have worn off. Pain has returned in her knees. She would like to have updated x-rays and potential injections. ROS: ROS per HPI otherwise non-contributory Past [...] Financial resource strain: Not on file Food insecurity Worry: Not on file Inability: Not on file Transportation needs Medical: Not on file Non-medical: Not on file Tobacco Use Smoking status: Never Smoker Smokeless tobacco: Never Used Substance and Sexual Activity Alcohol use: Yes Comment: rare Drug use: No Sexual activity: Yes Partners: Male Lifestyle Physical activity Days per week: Not on file Minutes per session: Not on file Stress: Not on file Relationships Social connections Talks on phone: Not on file Gets together: Not on file Attends samaritan service: Not on file Active member of club or organization: Not on file Attends meetings of clubs or organizations: Not on file Relationship status: Not on file Intimate partner violence Fear of current or ex partner: Not [...] Comment: breast Social History Narrative Originally from [place]. Graduated from [employer]. 3 Sisters - Nai and Jeannine, 1 brother Vaping/E-Cigarette Use Vaping/E-Cigarette Use Never User Vaping/E-Cigarette Substances Nicotine No Other No Flavoring No THC No Cannabidiol (CBD) No Vaping/E-Cigarette Devices Disposable No Pre-filled or Refillable Cartridge No Refillable Tank No Pre-filled Pod No Physical Exam Constitutional: Morbidly obese and in no acute distress Psychiatric: Mood and Affect normal Eyes: EOMI Respiratory: Normal respiratory effort with regular rate and rhythm Cardiovascular: No edema in the affected extremity(s) Knee Exam, Bilateral Exam limited by habitus Inspection: No swelling or effusion noted Alignment: Valgus left greater than right Effusion: Negative Bilateral Palpation: Tender palpate greatest along the medial joint on the right and lateral joint line on the left ROM: Flexion/Neutral/Extension: L - 100/0/0, R - 100/0/0 Limited by habitus Strength: SLR: Extension: L - 5/5, R - 5/5 Flexion: L - 5/5, R - 5/5 Quadriceps Tone: Difficult to evaluate Radiology (I have personally reviewed the following films): 08/11/2023: Three-view x-ray of each Left: Tricompartmental DJD greates laterally where it is severe Right: Tricompartmental DJD greates medially where it is moderate to severe 03/06/2021: Three-view x-ray of the right hip BilFINDINGS Chronic incompletely healed bilateral femoral neck fractures, status post operative fixation with 3percutaneous screws in each femoral neck. Fractures are grossly unchanged in alignment and appearance compared to the radiographs dated May 20, 2018. No abnormal lucency surrounding the fixation screws. No acute fracture identified. No joint malalignment. Multilevel intervertebral disc degeneration in the lower lumbar spine. IMPRESSION IMPRESSION Chronic bilateral femoral neck fractures, grossly unchanged. 03/06/2021: Three-view x-ray of each knee FINDINGS Right knee: No significant joint malalignment. Tricompartmental osteoarthritis, severe in the patellofemoral compartment. No fracture or aggressive osseous lesion identified. No significant joint effusion. Left knee: Genu valgum. Relative anterior translation of the proximal tibia suggestive of ACL insufficiency. Tricompartmental osteoarthritis, severe in the lateral compartment. No fracture or aggressive osseouslesion identified. No significant joint effusion. IMPRESSION IMPRESSION Chronic findings as above. 02/20/2020: 6 view x-ray of the left knee FINDINGS No significant joint malalignment. Moderate tricompartmental osteoarthritis, greatest in the lateral compartment. No fracture, aggressive osseous lesion, or abnormal periosteal reaction. No significant joint effusion. Chronic heterotopic ossification near the tibial tubercle, consistent with prior Campos-Schlatter's disease. IMPRESSION IMPRESSION Moderate osteoarthritis of the left knee. Assessment and Plan: 1) right knee pain status post a fall I suspect the patient aggravated her severe DJD. Intra-articular steroid injection performed 03/06/2021 was of no benefit Minimal relief from bilateral Gelsyn series completed on 04/15/2021. 2) left knee pain Once again suspect this is secondary to severe DJD. Minimal relief from bilateral Gelsyn series completed on 04/15/2021. Bilateral intra-articular steroid injection performed 10/27/2022. Has noted improvement in the left knee more than the right knee. She has previously attended physical therapy and did not have benefit. She would consider going to a different location but wants to see how she does with injection therapy 1st. Received bilateral viscosupplementation Durolane on 12/08/2022. These were of some benefit but have worn off. She requested to try a different shot viscosupplementation. Seeking authorization for [facility]. May try to do this in supine position with ultrasound guidance. Bilateral intra-articular steroid injections performed today 08/11/2023 to see if she is any benefit. I used a longer needle than I had in the past. Patient is aware that she currently is not a surgical candidate given her weight. Procedure note (knee injection), bilateral : Time out: Prior to injection, a time out was called to confirm the administration of appropriate medicine, patient name, procedure and confirm to the best of our ability and knowledge the presence of any necessary risks and benefits. Patient verbalizes understanding. Sterile techinique applied. Skin sterilized with alcohol swab. Knee injected using 2.5 inch, 22 gauge needle (needle not inserted completely). Injected with 1 ml lidocaine 1%, triamcinolone [id number]/ml 1 ml. Patient tolerated procedure with no significant bleeding or adverse reaction. Patient instructed to call or return to clinic for fever or warmth and redness at injection site for potential infection. Patient also advised as to potential for steroid flare reaction including increased pain and redness at injection site which should be treated with ice and resolve within 24 hours. Sree Monsivais MD Primary Care Sports Medicine [facility] [address] [place] [address] documented in this encounter Nursing Notes * SANDRA Castillo - 08/11/2023 8:30 AM EDT Pt presents today for BL knees Requesting FIELDS injections for BL knees Advised pt her insurance requires prior auth SANDRA Castillo documented in this encounter Plan of Treatment Upcoming Encounters Date Type Specialty Care Team Description 08/27/2023 Office Visit Family Medicine Rik Alan, DO [address] [place] [address] 09/03/2023 Office Visit Cardiology Soila Esparza CRNP [address] [place] [address] 09/24/2023 Office Visit Orthopedics Sree Monsivais MD [address] [place] [address] 10/26/2023 Office Visit Urology Candido Sanford MD [address] [place] [address] 02/11/2024 Office Visit Cardiology Kristan Hill, DO [address] [place] [address] Pending Results Name Type Priority Associated Diagnoses Date /Time XR KNEE 3 VIEWS Medical Imaging Routine Primary osteoarthritis of left knee Primary osteoarthritis of right knee 08/11/2023 8:45 AM EDT Scheduled Procedures Name Priority Associated [...] D LEVEL ONCE IN A LIFETIME-USE SMARTSET# [id number] Completed 02/20/2020, 11/09/2017, 04/14/2016, Additional history exists [...] encounter Visit Diagnoses Diagnosis Primary osteoarthritis of left knee- Primary Primary localized osteoarthrosis, lower leg Primary osteoarthritis of right knee Primary localized osteoarthrosis, lower leg documented in this encounter Care Teams Driver Material Handler Relationship Specialty Start Date End Date Rik Alan, DO [address] [place] [place] [address] PCP - General Family Medicine 04/17/16 documented as of this encounter
--- OUTSIDE RECORDS SUMMARY | 2023-11-08 12:46 | External Medical Summary | Summary of Care ---
Author Name Unknown Organization [facility] Address [address] [facility] [place] [address] Phone [phone] Care Team Providers Care Brand Protection Manager Name Role Phone Dayanna Rik Shamika CH Primary Care Provider [phone] Reason for Visit * Reason Comments Follow Up L foot pain Encounter Details Date Type Department Care Team Description 07/19/2023 Office Visit Podiatry [facility] [address] [place] [address] Jacki Cano DPM [address] [place] [address] Left foot pain*; Pes planus of both [...] maintenance. 20 mL 1 05/26/2023 Active Nystatin 041592 UNIT/GM External Powder (Nystop) 3 times a [...] (Aaron/J&J) 03/09/2021 Pneumococcal Conjugate Vacci ne, 20-valent ([id number]) 02/24/2023 Seasonal Influenza, PF, 6 mo ns [...] EDT Podiatry Established Patient Note [facility] Name: Dipesh Cox : 1960 Date: [...] like totry another one. Going to the [employer] today. Past Medical History: Diagnosis Date Calculus of kidney Depressive disorder, not elsewhere classified Depression Female infertility Infertility, Female HLD (hyperlipidemia) HTN, goal to be determined Hypothyroidism Obesity, BMI not known Obesity Other psoriasis Psoriasis Past Surgical History: Procedure Laterality Date COLONOSCOPY, DIAGNOSTIC (RECTUM) 12/24/2022 benign adenomatous polyp, diverticulosis, repeat 5 yrs / [facility] CYSTOSCOPY 03/18/2005 under anesthesia CYSTOSCOPY 03/24/2005 [...] file Gets together: Not on file Attends lutheran service: Not on file Active member of [...] Comment: breast Social History Narrative Originally from [place]. Graduated from [employer]. 3 Sisters - Nai and Jeannine, 1 brother Current Outpatient Medications Medication Sig Dispense Refill Nystatin 022394 UNIT/GM External Powder (Nystop) 3 times a [...] this would need to be performed in [place], but with her lymphedema and weight, they [...] Office Visit Orthopedics Sree Monsivais MD [address] [facility] [place] [address] 08/27/2023 Office Visit Family Medicine Rik Alan DO [address] [place] [address] 09/03/2023 Office Visit Cardiology Soila Esparza CRNP [address] [place] [address] 10/26/2023 Office Visit Urology Candido Sanford MD [address] [place] [place] [id number] 02/11/2024 Office Visit Cardiology Kristan Hill, DO [address] [facility] [place] [phone] Scheduled Procedures Name Priority Associated Diagnoses Date/Ti [...] D LEVEL ONCE IN A LIFETIME-USE SMARTSET# [id number] Completed 02/20/2020, 11/09/2017, 04/14/2016, Additional history exists [...] ankle documented in this encounter Care Teams Brand Protection Manager Relationship Specialty Start Date End Date Rik Alan, [address] [place] [address] PCP - General Family Medicine 04/17/16 documented as of this encounter
--- OUTSIDE RECORDS SUMMARY | 2023-11-08 12:46 | External Medical Summary | Summary of Care ---
Author Name Unknown Organization [facility] Address [address] [facility] [place] [address] Phone [phone] Care Team Providers Care Disintegrator Operator Name Role Phone KimberlyRik [place] Shamika CH Primary Care Provider [phone] Reason for Visit * Reason Comments Cough Congestion Encounter Details Date Type Department Care Team Description 07/29/2023 [facility] Visit [facility] [address] [facility] [place] [address] Marcela Christopher DO [address] [facility] [place] [address] Bronchitis, complicated*; Cold sore Allergies Active Allergy Reactions Severity Noted Date [...] ITCHING 20 Tablet 5 11/04/2022 3 Active Gabapentin 300 MG Oral Capsule (Neurontin) TAKE ONE CAPSULE BY MOUTH AT BEDTIME 30 Capsule 5 11/10/2022 3 Active Losartan Potassium 50 MG Oral Tablet [...] maintenance. 20 mL 1 05/26/2023 Active Nystatin 091813 UNIT/GM External Powder (Nystop) 3 times a day. 0 05/06/2023 Activ e valACYclovir HCl 1 GM Oral Tablet (Valtrex)Indicatio ns:Cold sore Take 2 Tablets by mouth in the morning and 2 Tablets before bedtime. For 1 day for cold sores. 4 Tablet 11 07/29/2023 Active predniSONE 10 MG Oral Tablet (Deltasone)Indicat ions:Bronchitis, complicated Take 5 tablets by mouth for 2 days, 4 tabs for 2 days, 3 tabs for 2 days, 2 tabs for 2 days 1 tab for 2 days 30 Tablet 0 07/29/2023 Active Apixaban 5 MG Oral Tablet (Eliquis)Indicatio ns:Essential hypertension with goal blood pressure less than 140/90 TAKE 1 TABLET BY MOUTH IN THE MORNING AND 1 TABLET BEFORE BEDTIME. 180 Tablet 3 05/15/2022 3 Discontinue d(Refill) documented as of this encounter [...] (Aaron/J&J) 03/09/2021 Pneumococcal Conjugate Vacci ne, 20-valent ([id number]) 02/24/2023 Seasonal Influenza, PF, 6 mo ns [...] Sign Reading Time Taken Comments Blood Pressure 136/72 07/29/2023 11:46 AM EDT Pulse 43 07/29/2023 11:46 AM EDT Temperature 36.2 C (97.1 F) 07/29/2023 1 1:46 AM EDT Respiratory Rate 18 07/29/2023 11:4 6 AM EDT Oxygen Saturation 98% 07/29/2023 11: 46 AM EDT Inhaled Oxygen Concentration - - Weight 174.4 kg (384 lb 6.4 oz) 023 11:46 AM EDT Height - - Body Mass Index 68.11 05/26/2023 12:40 PM EDT documented in this encounter Progress Notes * Marcela Christopher, - 07/29/2023 12:01 PM EDT Subjective: Dipesh Cox is a 62 year old female. Chief Complaint Patient presents with Cough Congestion HPI: Dipesh Cox presents with complaints of sinus congestion with pain/pressure, ear pressure/itching, post nasal drip, sore throat, productive cough with SOB/wheezing, sweats, body aches, & fatigue for past 3 weeks. PHM: Patient Active Problem List Diagnosis Code Female infertility N97.9 DEPRESS PSYCHOSIS-UNSPEC F32.9 Dyslipidemia, goal LDL below 160 E78.5 Hypothyroidism due to acquired atrophy of thyroid E03.4 HTN, goal below 130/80 I10 Senile osteoporosis M81.0 PAF (paroxysmal atrial fibrillation) ([facility]) I48.0 Body mass index (BMI) of 60.0 to 69.9 in adult ([facility]) Z68.44 Neuropathy G62.9 Medical home patient encounter Z00.8 Tachy-brennan syndrome ([facility]) I49.5 Urinary incontinence R32 Other hereditary and idiopathic neuropathies G60.8 FLETCHER (acute kidney injury) ([facility]) N17.9 Idiopathic polyneuropathy G60.9 Osteoporosis M81.0 Outpatient Medications Prior to Visit Medication Sig Dispense Refill Nystatin 065319 UNIT/GM External Powder (Nystop) 3 times a day. Oxybutynin Chloride ER 5 MG Oral Tablet Extended Release 24 Hour (Ditropan XL) Take 1 Tablet by mouth in the morning. Do not cut, crush or chew. 30 Tablet 11 Levothyroxine Sodium 88 MCG Oral Tablet (Levoxyl) Take 1 Tablet by mouth in the morning. (at least 30 min prior to breakfast or other meds). 90 Tablet 3 Losartan Potassium 50 MG Oral Tablet (Cozaar) Take 1 Tablet by mouth in the morning. 90 Tablet 3 Gabapentin 300 MG Oral Capsule (Neurontin) TAKE ONE CAPSULE BY MOUTH AT BEDTIME 30 Capsule 5 hydrOXYzine HCl 25 MG Oral Tablet TAKE 1 TO 2 TABLETS BY MOUTH EVERY 6 HOURS NEEDED FOR ITCHING 20 Tablet 5 Sotalol HCl 80 MG Oral Tablet (Betapace) TAKE 1/2 TABLET BY MOUTH IN THE MORNING THEN 1 TABLET IN THE EVENING (Patient taking differently: Take 0.5 Tablets by mouth in the morning and 0.5 Tablets before bedtime.) 68 Tablet 11 Loperamide HCl 2 MG Oral Tablet (Immodium (A-D)) Take 1 Tablet by mouth 4 times a day as needed forDiarrhea. Tylenol PM Extra Strength 500-25 MG Oral Tablet (diphenhydrAMINE-APAP (sleep)) Take 1 Tablet by mouth at bedtime as needed for Sleep. [DISCONTINUED] Apixaban 5 MG Oral Tablet (Eliquis) TAKE 1 TABLET BY MOUTH IN THE MORNING AND 1 TABLET BEFORE BEDTIME. 180 Tablet 3 Fluocinolone Acetonide 0.01 % Otic Oil (DermOtic) Applied to the ears once daily for 2 weeks and then once weekly for maintenance. 20 mL 1 No facility-administered medications prior to visit. Last reviewed on 08/11/2023 10:17 AM by Sree Monsivais MD Review of patient's allergies indicates: Allergen Reactions Baby Oil Other reaction(s): Rash Lisinopril Cough Other Allergy (See Comments) Itching BABY OIL Zocor [Simvastatin] myalgias Objective: BP 136/72 | Pulse 43 | Temp 36.2 C (97.1 F) (Tympanic) | Resp 18 | Wt (!) 174.4 kg (384 lb 6.4 oz) | LMP 12/12/2004 | SpO2 98% | BMI 68.11 kg/m | BSA 2.78 m Physical Exam: Head: Normocephalic, No masses, lesions, tenderness or abnormalities Ears: External ears normal, Canals clear, TM's Normal Nose: no mucosal erythema, no mucosal edema, no purulent discharge Oropharynx: no exudate, no erythema, lips, buccal mucosa, and tongue normal, and mucous membranes are moist Neck: supple, no adenopathy, no bruits, thyroid normal size, non-tender, without nodularity Lymph: no palpable lymphadenopathy Heart: regular rate & rhythm, no murmur, and no gallops Lungs: chest symmetric with normal AP diameter, no chest deformities noted, no chest wall tenderness, lungs clear to auscultation Pulses: carotid=2/4 w/o bruits Extremities: less than 2 second capillary refill, no joint deformities, effusion, or inflammation ASSESSMENT/PLAN: Bronchitis, complicated (Primary) - predniSONE 10 MG Oral Tablet (Deltasone); Take 5 tablets by mouth for 2 days, 4 tabs for 2 days, 3 tabs for 2 days, 2 tabs for 2 days 1 tab for 2 days Cold sore - valACYclovir HCl 1 GM Oral Tablet (Valtrex); Take 2 Tablets by mouth in the morning and 2 Tabletsbefore bedtime. For 1 day for cold sores. supportive care, fluids, rest, precautions, salt water gargles, tylenol or NSAIDS as needed Call or go to ED with concerns for dehydration, lethargy, respiratory distress. If cough still not better after prednisone, check CXR due to prolonged cough, discussed Ddx such asGERD, and PND due to allergies as well. Suspect pt had cold, felt a little better, and recently has a new viral illness this week. 20 min spent with patient, reviewing history, performing physical exam, reviewing labs, studies, specialist OVNs, and reports, educating and coordinating care, discussing treatment Marcela Christopher DO documented in this encounter Nursing Notes * Sherrie Gallegos LPN - 07/29/2023 11:48 AM EDT Dipesh Arturo Brooke presents with complaints of sinus congestion with pain/pressure, ear pressure/itching, post nasal drip, sore throat, productive cough with SOB/wheezing, sweats, body aches, & fatigue for past 3 weeks. documented in this encounter Plan of Treatment Upcoming Encounters Date Type Specialty Care Team Description 08/27/2023 Office Visit Family Medicine Rik Alan, DO [address] [facility] [place] [address] 09/03/2023 Office Visit Cardiology Soila Esparza CRNP [address] [place] [address] 09/24/2023 Office Visit Orthopedics rSee Monsivais MD [address] [facility] [address] 10/26/2023 Office Visit Urology Candido Sanford MD [address] [place] [address] [place] [address] 02/11/2024 Office Visit Cardiology Kristan Hill, DO [address] [facility] [place] [address] Scheduled Procedures Name Priority Associated Diagnoses Date/Ti [...] D LEVEL ONCE IN A LIFETIME-USE SMARTSET# [id number] Completed 02/20/2020, 11/09/2017, 04/14/2016, Additional history exists [...] as of this encounter Visit Diagnoses Diagnosis Bronchitis, complicated- Primary Bronchitis, not specified as acute or chronic Cold sore Herpes simplex without mention of complication documented in this encounter Care Teams Disintegrator Operator Relationship Specialty Start Date End Date Rik Alan, DO [address] [place] [address] PCP - General Family Medicine 04/17/16 documented as of this encounter"
--- OUTSIDE RECORDS SUMMARY | 2023-11-08 12:46 | External Medical Summary | Summary of Care ---
Author Name Unknown Organization [facility] Address [address] [facility] [place] [address] Phone [phone] Care Team Providers Care Business Teacher Name Role Phone Dayanna Rik Shamika CH Primary Care Provider [phone] Reason for Visit * Reason Comments Outpatient Testing Encounter Details Date Type Department Care Team Description 08/13/2023 Laboratory [facility] [place] [address] [place] [address] [place], [facility] Sc[facility] [address] [place] [address] Hypothyroidism due to acquired atrophy of thyroid; Encounter for long-term (current) use of medications Allergies Active Allergy Reactions Severity Noted Date [...] maintenance. 20 mL 1 05/26/2023 Active Nystatin 127363 UNIT/GM External Powder (Nystop) 3 times a [...] (Aaron/J&J) 03/09/2021 Pneumococcal Conjugate Vacci ne, 20-valent ([id number]) 02/24/2023 Seasonal Influenza, PF, 6 mo ns [...] Family Medicine Rik Alan, DO [address] [place] [address] 09/03/2023 Office Visit Cardiology Soila Esparza CRNP [address] [place] [address] 09/24/2023 Office Visit Orthopedics Sree Monsivais MD [address] [place] [address] 10/26/2023 Office Visit Urology Candido Sanford MD [address] [place] [address] [place] [address] 02/11/2024 Office Visit Cardiology Kristan Hill, DO [address] [facility] [place] [id number] Pending Results Name Type Priority Associated Diagnoses Date /Time TSH WITH FREE T4 IF INDICATED Lab Routine Hypothyroidism due to acquired atrophy of thyroid 08/13/2023 10:32 AM EDT Scheduled Procedures Name Priority Associated [...] D LEVEL ONCE IN A LIFETIME-USE SMARTSET# [id number] Completed 02/20/2020, 11/09/2017, 04/14/2016, Additional history exists [...] Procedure Name Priority Date/Time Associated Diagnosis Comments CBC Routine 08/13/2023 10:32 AM EDT Encounter for long-term (current) use of medications documented in this encounter Results * (ABNORMAL) CBC (08/13/2023 10:32 AM EDT) WBC 9.52 4.00 - 10.80 K/uL 08/13/2023 11:02 AM EDT [facility]- RBC 3.76 3.85 - 5.15 M/uL 08/13/2023 11:02 AM EDT [address] HGB 10.4(L) 12.0 - 15.3 g/dL 08/13/2023 11:02 AM EDT [facility] HCT 34.0(L) 36.0 - 45.2 % 08/13/2023 11:02 AM EDT [facility] MCV 90.4 81.5 - 97.5 fL 08/13/2023 11:02 AM EDT [facility]- MCH 27.7 27.0 - 34.0 pg 08/13/2023 11:02 AM EDT [facility] MCHC 30.6 32.0 - 36.0 g/dL 08/13/2023 11:02 AM EDT [facility] RDW 15.5 11.5 - 15.5 % 08/13/2023 11:02 AM EDT [facility]- PLT 288 140 - 400 K/uL 08/13/2023 11:02 AM EDT [facility]- MPV 10.2 6.6 - 11.1 fL 08/13/2023 11:02 AM EDT [facility]- Blood Venous blood specimen / Unknown Venipuncture / Unknown 08/13/2023 10:32 AM EDT 08/13/2023 10:33 AM EDT Amber Hinton [facility] LAB BLOOD ORDERABLES [facility]- [address] [place] [address] documented in this encounter Visit Diagnoses Diagnosis Hypothyroidism due to acquired atrophy of thyroid Encounter for long-term (current) use of medications Encounter for long-term (current) use of other medications documented in this encounter Care Teams Business Teacher Relationship Specialty Start Date End Date Rik Alan, DO [address] [place] [address] PCP - General Family Medicine 04/17/16 documented as of this encounter
--- OUTSIDE RECORDS SUMMARY | 2023-11-08 12:46 | External Medical Summary ---
Author Name Unknown Address Unknown Organization K[facility] [place] [address] [place] [address] Laboratory Report Ordering Provider Test Date Status HALEY SOSA 08/13/2023 10:32:19 Final Observation Date Value Abnormality Reference (Units ) Status TSH 08/13/2023 10:32:19 6.18 Above high normal 0. 27-4.20 (uIU/mL) Final Performing Location [facility] [place] [address] [place] [address]
--- OUTSIDE RECORDS SUMMARY | 2023-11-08 12:46 | External Medical Summary ---
Author Name Unknown Address Unknown Organization K01:[facility] - [address] [place] [address] Laboratory Report Ordering Provider Test Date Status HALEY SOSA 08/13/2023 10:32:19 Final Observation Date Value Abnormality Reference (Units ) Status T4, Free 08/13/2023 10:32:19 0.9 0.9-1.7 (n g/dL) Final Performing Location [facility] - [address] [place] [address]
--- OUTSIDE RECORDS SUMMARY | 2023-11-08 12:46 | External Medical Summary | Summary of Care ---
Author Name Unknown Organization [facility] Address [address] [facility] [place] [address] Phone [phone] Care Team Providers Care Neuroradiologist Name Role Phone MunirRik irizarry Primary Care Provider [phone] Reason for Visit * Reason Comments Follow Up BL knees Encounter Details Date Type Department Care Team Description 08/11/[address] [facility] [address] [place] [address] Sree Monsivais MD [address] [place] [address] Primary osteoarthritis of left knee*; Primary osteoarthritis [...] maintenance. 20 mL 1 05/26/2023 Active Nystatin 487398 UNIT/GM External Powder (Nystop) 3 times a [...] knee 2 mL IJ ONCE 08/11/2023 08/11/20 23 Ended lidocaine 1% 1 mL - triamcinolone acetonide 40 mg/mL 1 mL inj 2 mLIndications:Primary osteoarthritis of right knee 2 mL IJ ONCE 08/11/2023 08/11/2023 Ended documented as of this encounter (statuses [...] (Aaron/J&J) 03/09/2021 Pneumococcal Conjugate Vacci ne, 20-valent ([id number]) 02/24/2023 Seasonal Influenza, PF, 6 mo ns [...] - 08/11/2023 8:36 AM EDT Dipesh Cox [id number] Dipesh oCx is a 60 year old female who presents for f/u to [facility] for bilateral [...] her L knee while at work at [employer]. Notes both knees bother her. She initially went to [facility] where they tried to Xray her and she fell, was transported via EMS to [facility] where she got XRs. I have read [...] of the FA joint by Dr. Warner ([facility] radiology [facility]) on 03/18/2021. However the benefit was [...] file Gets together: Not on file Attends latter day service: Not on file Active member of [...] Comment: breast Social History Narrative Originally from [place]. Graduated from [employer] and Jeannine, 1 [...] near the tibial tubercle, consistent with prior Swiss-Schlatter's disease. IMPRESSION IMPRESSION Moderate osteoarthritis of the [...] a different shot viscosupplementation. Seeking authorization for [facility]. May try to do this in supine [...] Injected with 1 ml lidocaine 1%, triamcinolone [id number]/ml 1 ml. Patient tolerated procedure with no [...] Sree Monsivais MD Primary Care Sports Medicine [facility] [address] [place] [address] documented in this encounter Nursing Notes * SADNRA Castillo - 08/11/2023 8:30 AM EDT Pt presents today for BL knees Requesting FIELDS injections for BL knees Advised pt her insurance requires prior auth SANDRA Castillo documented in this encounter Plan of Treatment Upcoming Encounters Date Type Specialty Care Team Description 08/27/2023 Office Visit Family Medicine Rik Alan, DO [address] [place] [address] 09/03/2023 Office Visit Cardiology Soila Esparza CRNP [address] [place] [address] 09/24/2023 Office Visit Orthopedics Sree Monsivais MD [address] [place] [address] 10/26/2023 Office Visit Urology Candido Sanford MD [address] [place] [address] [place] [address] 02/11/2024 Office Visit Cardiology Kristan Hill, DO [address] [place] [address] Pending Results Name Type Priority Associated Diagnoses [...] D LEVEL ONCE IN A LIFETIME-USE SMARTSET# [id number] Completed 02/20/2020, 11/09/2017, 04/14/2016, Additional history exists [...] osteoarthrosis, lower leg documented in this encounter Administered Medications Inactive Administered Medications - up to 3 most recent administrations Medication Order MAR Action Action Date Dose Rate Site lidocaine 1% 1 mL - triamcinolone acetonide 40 mg/mL 1 mL inj 2 mL 2 mL, Injection, ONCE, On Wed08/11/23 at 1045, For 1 dose, Lidocaine 1% 1mL Triamcinolone Acetonide 40 mg/mL 1 mL (Final concentration = 20 mg/mL) REFRIGERATE and SHAKE WELL Given 08/11/2023 10:41 AM EDT 2 mL Knee Right lidocaine 1% 1 mL - triamcinolone acetonide 40 mg/mL 1 mL inj 2 mL 2 mL, Injection, ONCE, On Wed08/11/23 at 1045, For 1 dose, Lidocaine 1% 1mL Triamcinolone Acetonide 40 mg/mL 1 mL (Final concentration = 20 mg/mL) REFRIGERATE and SHAKE WELL Given 08/11/2023 10:41 AM EDT 2 mL Knee Left documented in this encounter Care Teams Neuroradiologist Relationship Specialty Start Date End Date Rik Alan, DO [address] [facility] [place] [address] PCP - General Family Medicine 04/17/16 documented as of this encounter
--- OUTSIDE RECORDS SUMMARY | 2023-11-08 12:46 | External Medical Summary ---
Author Name Unknown Address Unknown Organization K09:[facility] [place] [address] Laboratory Report Ordering Provider Test Date Status KING SHANNON 08/13/2023 10:32:19 Final Observation Date Value Abnormality Reference (Units ) Status WBC, Total 08/13/2023 10:32:19 9.52 4.00-10.8 0 (K/uL) Final RBC 08/13/2023 10:32:19 3.76 3.85-5.15 (M/uL) Final Hemoglobin 08/13/2023 10:32:19 10.4 Below low normal 12 .0-15.3 (g/dL) Final HCT 08/13/2023 10:32:19 34.0 Below low normal 36. 0-45.2 (%) Final MCV 08/13/2023 10:32:19 90.4 81.5-97.5 (fL) Final MCH 08/13/2023 10:32:19 27.7 27.0-34.0 (pg) Final MCHC 08/13/2023 10:32:19 30.6 32.0-36.0 (g/dL) Final RDW 08/13/2023 10:32:19 15.5 11.5-15.5 (%) Final Platelets 08/13/2023 10:32:19 288 140-400 (K /uL) Final MPV 08/13/2023 10:32:19 10.2 6.6-11.1 ( fL) Final Performing Location [facility] [place] [address]
--- OUTSIDE RECORDS SUMMARY | 2023-11-08 12:47 | External Medical Summary | Summary of Care ---
Author Name Unknown Organization [facility] Address [address] [facility] [place] [address] Phone [phone] Care Team Providers Care Roll Clamp Operator Name Role Phone MunirRik irizarry Shamika CH Primary Care Provider [phone] Reason for Visit * Reason Comments NEW PATIENT * Evaluate & Treat - Unlimited Visits (Within 24 hrs (call dept; emergent)) - Authorized Specialty Diagnoses / Procedures Referred By Contriddhi t Referred To Contact Otolaryngology Diagnoses Excessive cerumen in ear canal, right Other infective acute otitis externa of right ear Decreased hearing of right ear Lizbeth Camejo MD [address] [place] [address] Referral ID Status Reason Start Date Expiration Date Visits Requested Visits Authorized [id number] Authorized Specialty Services Required 02/25/2023 999 999 Encounter Details Date Type Department Care Team Description 05/26/[address] [facility] [address] [place] [address] Isaac Macias DO [address] [place] [address] Dermatitis of both ear canals* Allergies Active Allergy Reactions Severity Noted Date Comments Baby Oil High 05/15/2022 Other reaction(s): Rash Lisinopril Cough 09/10/2010 Other Allergy (See Comments) Itching 014 BABY OIL Simvastatin 01/24/2008 myalgias documented as of this encounter (statuses as of 05/26/2023) Medications Medication Sig Dispensed Refills Start Date [...] for maintenance. 20 mL 1 05/26/2023 Active documented as of this encounter (statuses as of 05/26/2023) Active Problems Problem Noted Date FLETCHER (acute [...] as of this encounter (statuses as of 05/26/2023) Resolved Problems Problem Noted Date Resolved Date [...] as of this encounter (statuses as of 05/26/2023) Immunizations Name Administration Dates Next Due COVID-19 mRNA, LNP-s, PF, 18 + or 6-11Yrs (Moderna) 10/31/2021 COVID-19, LNP-s, No Preserve , Alexx-sucrose, Ages 12+ (Pfizer) 06/02/2022 Covid-19 Ad26, Single Dose (Aaron/J&J) 03/09/2021 Pneumococcal Conjugate Vacci ne, 20-valent ([id number]) 02/24/2023 Seasonal Influenza, Quadriva lent, No Preserve, 6 Mons & Above, IM 08/25/2022,09/09/2021,08/27/2020,2018,08/16/2018 Seasonal Influenza, Quadriva lent, No Preserve, [...] Sign Reading Time Taken Comments Blood Pressure - - Pulse - - Temperature 35.9 C (96.7 F) 05/26/2023 12:40 PM E DT Respiratory Rate - - Oxygen Saturation - - Inhaled Oxygen Concentration - - Weight 175.5 kg (387 lb) 05/26/2023 12:40 PM EDT Height 160 cm (5' 2.99") 05/26/2023 12:40 PM EDT Body Mass Index 68.57 05/26/2023 12:40 PM EDT documented in this encounter Progress Notes * Isaac Macias DO - 05/26/2023 12:49 PM EDT 05/26/2023 HISTORY OF PRESENT ILLNESS This 62 year old YO female is seen at the request of Rik Alan DO for the evaluation of Itching of the ears and cerumen impactions. Patient states that she had the ears flushed about a monthor so ago at her family doctor for cerumen. She states her ears are constantly itching. She denies any otorrhea or otalgia. She denies any hearing loss. No previous otologic surgery.. Problem List Patient Active Problem List Diagnosis Code Female infertility N97.9 DEPRESS PSYCHOSIS-UNSPEC F32.9 Dyslipidemia, goal LDL below 160 E78.5 Hypothyroidism due to acquired atrophy of thyroid E03.4 HTN, goal below 130/80 I10 Senile osteoporosis M81.0 PAF (paroxysmal atrial fibrillation) ([facility]) I48.0 Body mass index (BMI) of 60.0 to 69.9 in adult ([facility]) Z68.44 Neuropathy G62.9 Medical home patient encounter Z00.8 Tachy-brennan syndrome ([facility]) I49.5 Urinary incontinence R32 Other hereditary and idiopathic neuropathies G60.8 FLETCHER (acute kidney injury) ([facility]) N17.9 Idiopathic polyneuropathy G60.9 Osteoporosis M81.0 Past Medical History: Diagnosis Date Calculus of kidney Depressive disorder, not elsewhere classified Depression Female infertility Infertility, Female HLD (hyperlipidemia) HTN, goal to be determined Hypothyroidism Obesity, BMI not known Obesity Other psoriasis Psoriasis Past Surgical History: Procedure Laterality Date COLONOSCOPY, DIAGNOSTIC (RECTUM) 12/24/2022 benign adenomatous polyp, diverticulosis, repeat 5 yrs / [facility] CYSTOSCOPY 03/18/2005 under anesthesia CYSTOSCOPY 03/24/2005 stent removal REPAIR HIP FRACTURE(S), W/FIXATION Bilateral 07/05/2015 Dr. Ratliff Medications Current Outpatient Medications Medication Sig Dispense Refill Fluocinolone Acetonide 0.01 % Otic Oil (DermOtic) Applied to the ears once daily for 2 weeks and then once weekly for maintenance. 20 mL 1 Tylenol PM Extra Strength 500-25 MG Oral Tablet (diphenhydrAMINE-APAP (sleep)) Take 1 Tablet bymouth at bedtime as needed for Sleep. Loperamide HCl 2 MG Oral Tablet (Immodium (A-D)) Take 1 Tablet by mouth 4 times a day as neededfor Diarrhea. Sotalol HCl 80 MG Oral Tablet (Betapace) TAKE 1/2 TABLET BY MOUTH IN THE MORNING THEN 1 TABLET IN THE EVENING (Patient taking differently: Take 0.5 Tablets by mouth in the morning and 0.5 Tabletsbefore bedtime.) 68 Tablet 11 Apixaban 5 MG [...] 24 Hour (Ditropan XL) Take 1 Tablet bymouth in the morning. Do not cut, crush or chew. 30 Tablet 11 No current facility-administered medications for this visit. Allergies Review of patient's allergies indicates: Allergen Reactions Baby Oil Other reaction(s): Rash Lisinopril Cough Other Allergy (See Comments) Itching BABY OIL Zocor [Simvastatin] myalgias Family History Family History Problem Relation Age of Onset Stroke Mother Cervical Cancer Mother Diabetes Father Hypertension Father Arthritis Sister No Known Problems Sister No Known Problems Sister No Known Problems Brother Psoriasis Aunt (Maternal) great aunt Skin cancer No significant family history Breast Cancer No significant family history Colon cancer No significant family history Ovarian cancer No significant family history Social History Social History Tobacco Use Smoking status: Never Smokeless tobacco: Never Substance Use Topics Alcohol use: Yes Comment: rare Vaping/E-Cigarette Use Vaping/E-Cigarette Use Never User Vaping/E-Cigarette Substances Nicotine No Other No Flavoring No THC No Cannabidiol (CBD) No Vaping/E-Cigarette Devices Disposable No Pre-filled or Refillable Cartridge No Refillable Tank No Pre-filled Pod No Review of Systems Negative for constitutional, eyes, cardiac, pulmonary, hepatic, renal, digestive, hematologic, epileptic, syncopal, musculo-skeletal, mental health, integumentary, hypertensive, lipid, arthritic, diabetic, thyroid or neurologic disorders (except as listed in the PMH and Problem List). Physical Examination: Temp 35.9 C (96.7 F) (Tympanic) | Ht 1.6 m (5' 2.99") | Wt (!) 175.5 kg (387 lb) | LMP 12/12/2004 | BMI 68.57 kg/m | BSA 2.79 m PHYSICAL EXAM General: This is a healthy appearing female who appears her stated age. The patient is alert and appropriately verbally conversant without hoarseness. Face: The face was inspected and no cutaneous masses or lesions were visualized. There was no erythema or edema noted. Facial movement was symmetric without weakness. No skin lesions were detected. Eyes: Extra-ocular muscle function was intact. No nystagmus was observed. Pupils were equal. Cranial Nerves: Cranial nerves II, III, IV, and were noted to be intact via extra-ocular muscle movement testing. Cranial nerve VII noted to be intact and symmetric by facial movement. Ears: Examination of the ears revealed that the auricles were normally formed with no lesions. The external auditory canals were cleaned of any obstructing cerumen. The tympanic membranes were intactand freely mobile to pneumatoscopy. There are no significant retraction pockets. There is no inflammation visualized. No effusions are seen. Procedure: In order to assess ears in further detail, the patient was brought to the microscope room and the ears were evaluated under the operating microscope. The findings are as noted in the above physical exam. Assessment: 62-year-old female with bilateral auricular dermatitis. Plan: Will start her on dermotic drop patient reassured her ears are healthy on exam today. No evidence of otitis externa. she will follow-up p.r.n. I spent a total of 30 minutes on the date of service in preparation, delivery, and documentation ofthe care provided to the above patient, excluding any time spent on the performance of any procedures or separately billable services. Isaac Macias DO, FACS [facility] Otolaryngology Head and Neck Surgery [place], [place] 05/26/2023 12:51 PM documented in this encounter Nursing Notes * Glendy Banuelos LPN - 05/26/2023 12:38 PM EDT Patient presents today for wax removal. States had PCP clean out her ears. She has itchiness. documented in this encounter Plan of Treatment Upcoming Encounters Date Type Specialty Care Team Description 07/19/2023 Office Visit Podiatry Nani Marx DPM [address] [place] [address] 07/22/2023 Office Visit Cardiology Daron Duggan DO [address] [place] [address] 08/27/2023 Office Visit Family Medicine Rik Alan DO [address] [place] [facility] [place] [address] 10/26/2023 Office Visit Urology Candido Sanford MD [address] [facility] [address] [place] [address] 02/11/2024 Office Visit Cardiology Kristan Hill, DO [address] [place] [address] Scheduled Procedures Name Priority Associated Diagnoses Date/Ti me COLONOSCOPY FLEXIBLE PROXIMAL DIAGNOSTIC Recall History of colon polyps Health Maintenance Due Date Last Done Comments Albumin/Creatinine Ratio 1979 Pap Smear 12/25/2013 12/25/2008, 11/30, 01/13/2005, Additional history exists COVID-19 Vaccine (4 - Booster for Aaron series) 07/28/2022 06/02/2022, 10/31/2021, 03/09/2021 Depression Screening, Annual for Pts 12 and Over 07/14/2023 07/14/2022 GFR 02/25/2024 02/24/2023, 07/0 03/2022, [...] D LEVEL ONCE IN A LIFETIME-USE SMARTSET# [id number] Completed 02/20/2020, 11/09/2017, 04/14/2016, Additional history exists Influenza Vaccine (FLU shot) Completed 08/25/2022, 09/09/2021, 08/27/2020, Additional history exists Zoster Vaccines Completed 08/25/2022, [...] as of this encounter Visit Diagnoses Diagnosis Dermatitis of both ear canals- Primary documented in this encounter Care Teams Roll Clamp Operator Relationship Specialty Start Date End Date Rik Alan, DO [address] [place] [address] PCP - General Family Medicine 04/17/16 documented as of this encounter
--- OUTSIDE RECORDS SUMMARY | 2023-11-08 12:47 | External Medical Summary | Summary of Care ---
Author Name Unknown Organization [facility] Address [address] [facility] [place] [address] Phone [phone] Care Team Providers Care Application Designer Name Role Phone Dayanna Rik Shamika CH Primary Care Provider [phone] Reason for Visit * Reason Comments Follow Up L foot pain Encounter Details Date Type Department Care Team Description 07/19/2023 Office Visit Podiatry [facility] [address] [place] [address] Nani Marx DPM [address] [place] [address] Left foot pain*; Pes planus of both [...] maintenance. 20 mL 1 05/26/2023 Active Nystatin 398418 UNIT/GM External Powder (Nystop) 3 times a day. 0 05/06/2023 Activ e documented as of this encounter (statuses as [...] 12+ (Pfizer) 06/02/2022 Covid-19 Ad26, Single Dose (CNS Response/J&J) 03/09/2021 Pneumococcal Conjugate Vacci ne, 20-valent ([id number]) 02/24/2023 Seasonal Influenza, PF, 6 mo ns [...] as of this encounter Progress Notes * Nani Marx, MARIA ISABEL - 07/19/2023 8:00 AM EDT Podiatry Established Patient Note [facility] [employer] System Name: Dipesh Cox : 1960 Date: 07/19/2023 [...] like totry another one. Going to the [employer] today. 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 Graduated from [employer]. 3 Sisters - Nai and Jeannine, 1 brother Current Outpatient Medications Medication Sig Dispense Refill Nystatin 821531 UNIT/GM External Powder (Nystop) 3 times a [...] this would need to be performed in [place], but with her lymphedema and weight, they [...] have a repeat injection every 3 months. Nani Marx DPM documented in this encounter Nursing Notes * SANDRA Castillo - 07/19/2023 7:55 AM EDT Pt presents today for L foot injection Last injection 04/15/23 SANDRA Castillo documented in this encounter Miscellaneous Notes * Addendum Note - SANDRA Castillo - 07/19/2023 8:15 AM EDTAddended by: ALBIN ARCHIBALD on: 07/19/2023 08:15 AM Modules accepted: Orders documented in this encounter Plan of Treatment Upcoming Encounters Date Type Specialty Care Team Description 08/11/2023 Office Visit Orthopedics Sree Monsivais MD [address] [place] [address] 08/27/2023 Office Visit Family Medicine Rik Alan DO [address] [place] [address] 09/03/2023 Office Visit Cardiology Soila Esparza CRNP [address] [place] [address] 10/26/2023 Office Visit Urology Candido Sanford MD [address] [place] [address] [place] [address] 02/11/2024 Office Visit Cardiology Kristan Hill, DO [address] [facility] [place] [address] Scheduled Procedures Name Priority Associated Diagnoses Date/Ti [...] D LEVEL ONCE IN A LIFETIME-USE SMARTSET# [id number] Completed 02/20/2020, 11/09/2017, 04/14/2016, Additional history exists [...] ankle documented in this encounter Care Teams Application Designer Relationship Specialty Start Date End Date Rik Alan, DO [address] [place] [address] PCP - General Family Medicine 04/17/16 documented as of this encounter
--- OUTSIDE RECORDS SUMMARY | 2023-11-08 12:47 | External Medical Summary | Summary of Care ---
Author Name Unknown Organization [facility] Address [address] [facility] [place] [address] Phone [phone] Care Team Providers Care Special Agent In Charge Name Role Phone Dayanna Rik Shamika CH Primary Care Provider [phone] Reason for Visit * Reason Comments Follow Up Encounter Details Date Type Department Care Team Description 05/14/2023 Office Visit Cardiology, [facility] [address] [facility] [place] [address] [place] [address] [facility] [place] [address] Tachy-brennan syndrome (HCC)*; PAF (paroxysmal atrial fibrillation) (HCC); HTN, goal below 130/80; Dyslipidemia, goal LDL below 160 Allergies Active Allergy Reactions Severity Noted Date Comments Baby Oil High 05/15/2022 Other reaction(s): Rash Lisinopril Cough 09/10/2010 Other Allergy (See Comments) Itching 014 BABY OIL Simvastatin 01/24/2008 myalgias documented as of this encounter (statuses as of 05/30/2023) Medications Medication Sig Dispensed Refills Start Date [...] on 05/10/2023 Apixaban 5 MG Oral Tablet (Eliquis)Indicatio ns:Essential [...] or chew. 30 Tablet 11 05/10/2023 Active Acetaminophen ER 650 MG Oral Tablet Extended Release (Tylenol ER)Indications:Ess ential hypertension with goal blood pressure less than 140/90 TAKE 1 TABLET BY MOUTH EVERY 8 HOURS NEEDED FOR MILD PAIN. 100 Tablet 5 05/15/2022 05/15/2023 hydroCHLOROthiazid e 25 MG Oral Tablet (Hydrodiuril)Indic ations:Essential hypertension with goal blood pressure less than 140/90 TAKE 1 TABLET BY MOUTH ONCE DAILY. 90 Tablet 3 05/15/2022 05/15/2023 Atorvastatin Calcium 40 MG Oral Tablet (Lipitor)Indicatio ns:Dyslipidemia, goal LDL below 160 TAKE 1 TABLET BY MOUTH IN THE MORNING. 90 Tablet 3 05/05/2022 05/18/2023 documented as of this encounter (statuses as of 05/30/2023) Active Problems Problem Noted Date FLETCHER (acute [...] as of this encounter (statuses as of 05/30/2023) Resolved Problems Problem Noted Date Resolved Date [...] as of this encounter (statuses as of 05/30/2023) Immunizations Name Administration Dates Next Due COVID-19 mRNA, LNP-s, PF, 18 + or 6-11Yrs (Moderna) 10/31/2021 COVID-19, LNP-s, No Preserve , Alexx-sucrose, Ages 12+ (Pfizer) 06/02/2022 Covid-19 Ad26, Single Dose (Aaron/J&J) 03/09/2021 Pneumococcal Conjugate Vacci ne, 20-valent ([id number]) 02/24/2023 Seasonal Influenza, Quadriva lent, No Preserve, [...] Never Smokeless Tobacco: Never Tobacco Cessation:Counseling Given: Yes Alcohol Use Standard Drinks/Week Comments Yes 0 (1 standard drink = 0.6 oz pur e alcohol) rare Sex Assigned at Date Recorded Female 02/14/2019 9:12 AM E DT Job Start Date Occupation Industry Not on file Not on file Not on file documented as of this encounter Last Filed Vital Signs Vital Sign Reading Time Taken Comments Blood Pressure 160/82 05/14/2023 10:14 AM EDT Pulse 48 05/14/2023 10:14 AM EDT Temperature - - Respiratory Rate 20 05/14/2023 10:14 AM EDT Oxygen Saturation - - Inhaled Oxygen Concentration - - Weight 175.5 kg (387 lb) 05/14/2023 10:14 AM EDT Height - - Body Mass Index 68.58 01/26/2023 11:40 AM EST documented in this encounter Progress Notes * Kristan Nadya Jettpham, DO - 05/14/2023 10:38 AM EDT Subjective Dipesh Cox is a 62 year old female. Chief Complaint Patient presents with Follow Up Pt returns to EP due to TBS Referring Provider: Dr. Duggan Cardiac Problems: TBS pAF on started on sotalol 04/2022 and on eliquis [id number] 2 (female, HTN) h/o DCCV HTN HLD Hypothroidism HPI: Pt was in [facility] ED due to a pulled muscle and she tells me her HR was down in the 30s; she was not admitted. Her sotalol dose was decreased. Dr. Maria saw her in the ED. She is tired and fatigued but she does not sleep well as she is up all night urinating PMH: Patient Active Problem List Diagnosis Code Female infertility N97.9 DEPRESS PSYCHOSIS-UNSPEC F32.9 Dyslipidemia, goal LDL below 160 E78.5 Hypothyroidism due to acquired atrophy of thyroid E03.4 HTN, goal below 130/80 I10 Senile osteoporosis M81.0 PAF (paroxysmal atrial fibrillation) ([facility]) I48.0 Body mass index (BMI) of 60.0 to 69.9 in adult ([facility]) Z68.44 Neuropathy G62.9 Medical home patient encounter Z00.8 Tachy-brennan syndrome ([facility]) I49.5 Urinary incontinence R32 Other hereditary and idiopathic neuropathies G60.8 FLETCHER (acute kidney injury) ([facility]) N17.9 Idiopathic polyneuropathy G60.9 Osteoporosis M81.0 Current Outpatient Medications Medication Sig Dispense Refill Loperamide HCl 2 MG Oral Tablet (Immodium (A-D)) Take 1 Tablet by mouth 4 times a day as neededfor Diarrhea. Sotalol HCl 80 MG Oral Tablet (Betapace) TAKE 1/2 TABLET BY MOUTH IN THE MORNING THEN 1 TABLET IN THE EVENING (Patient taking differently: Take 0.5 Tablets by mouth in the morning and 0.5 Tabletsbefore bedtime.) 68 Tablet 11 Acetaminophen ER 650 MG Oral Tablet Extended Release (Tylenol ER) TAKE 1 TABLET BY MOUTH EVERY 8 HOURS NEEDED FOR MILD PAIN. 100 Tablet 5 hydroCHLOROthiazide 25 MG Oral Tablet (Hydrodiuril) TAKE 1 TABLET BY MOUTH ONCE DAILY. 90 Tablet 3 Apixaban 5 MG Oral Tablet (Eliquis) TAKE 1 TABLET BY MOUTH IN THE MORNING AND 1 TABLET BEFORE BEDTIME. 180 Tablet 3 Atorvastatin Calcium 40 MG Oral Tablet (Lipitor) TAKE 1 TABLET BY MOUTH IN THE MORNING. 90 Tablet 3 hydrOXYzine HCl 25 MG Oral [...] cut, crush or chew. 30 Tablet 11 Tylenol PM Extra Strength 500-25 MG Oral Tablet (diphenhydrAMINE-APAP (sleep)) Take 1 Tablet bymouth at bedtime as needed for Sleep. No current facility-administered medications for this visit. Past Medical History: Diagnosis Date Calculus of kidney Depressive disorder, not elsewhere classified Depression Female infertility Infertility, Female HLD (hyperlipidemia) HTN, goal to be determined Hypothyroidism Obesity, BMI not known Obesity Other psoriasis Psoriasis Past Surgical History: Procedure Laterality Date COLONOSCOPY, DIAGNOSTIC (RECTUM) 12/24/2022 benign adenomatous polyp, diverticulosis, repeat 5 yrs / [facility] CYSTOSCOPY 03/18/2005 under anesthesia CYSTOSCOPY 03/24/2005 stent removal REPAIR HIP FRACTURE(S), W/FIXATION Bilateral 07/05/2015 Dr. Ratliff Review of patient's allergies indicates: Allergen Reactions Baby Oil Other reaction(s): Rash Lisinopril Cough Other Allergy (See Comments) Itching BABY OIL Zocor [Simvastatin] myalgias Family History Problem Relation Age of Onset Stroke Mother Cervical Cancer Mother Diabetes Father Hypertension Father Arthritis Sister No Known Problems Sister No Known Problems Sister No Known Problems Brother Psoriasis Aunt (Maternal) great aunt Skin cancer No significant family history Breast Cancer No significant family history Colon cancer No significant family history Ovarian cancer No significant family history Family Status Relation Status Mo Alive Fa at age 60's Sis Alive arthritis Sis Alive Sis Alive Bro Alive MAUNT (Not Specified) No history (Not Specified) Social History Socioeconomic History Marital status: Spouse name: Naeem Chi Number of children: 0 Years of education: Not on file Highest education level: Not on file Occupational History Occupation: [employer] Comment: [employer] Tobacco Use Smoking status: Never Smokeless tobacco: [...] Comment: breast Social History Narrative Originally from [place]. Graduated from [employer]. 3 Sisters - Nai and Jeannine, 1 brother Social Determinants of Health Financial Resource Strain: Not on file Food Insecurity: Not on file Transportation Needs: Not on file Physical Activity: Not on file Stress: Not on file Social Connections: Not on file Intimate Partner Violence: Not on file Housing Stability: Not on file Review of Systems Constitutional: Positive for activity change and fatigue. Negative for chills, fever and unexpectedweight change. HENT: Negative for postnasal drip, rhinorrhea and sinus pressure. Eyes: Negative for visual disturbance. +glasses Respiratory: Positive for shortness of breath. Cardiovascular: Positive for leg swelling. Negative for chest pain and palpitations. Gastrointestinal: Positive for diarrhea. Negative for blood in stool, constipation, nausea and vomiting. Genitourinary: Negative for dysuria and hematuria. Musculoskeletal: Positive for arthralgias and gait problem. Skin: Negative for rash. Neurological: Positive for dizziness and light-headedness. Negative for syncope. Psychiatric/Behavioral: Positive for sleep disturbance. Objective BP 160/82 | Pulse 48 | Resp 20 | Wt (!) 175.5 kg (387 lb) | LMP 12/12/2004 | BMI 68.58 kg/m | BSA2.79 m Physical Exam Vitals and nursing note reviewed. Constitutional: General: She is awake. Appearance: Normal appearance. She is well-developed. HENT: Head: Normocephalic and atraumatic. Eyes: General: No scleral icterus. Extraocular Movements: Extraocular movements intact. Neck: Vascular: Normal carotid pulses. No carotid bruit or JVD. Cardiovascular: Rate and Rhythm: Normal rate and regular rhythm. Pulses: Carotid pulses are 2+ on the right side and 2+ on the left side. Radial pulses are 2+ on the right side and 2+ on the left side. Posterior tibial pulses are 2+ on the right side and 2+ on the left side. Heart sounds: S1 normal and S2 normal. Murmur heard. Pulmonary: Effort: Pulmonary effort is normal. Breath sounds: Normal breath sounds. No decreased breath sounds, wheezing, rhonchi or rales. Musculoskeletal: Cervical back: Neck supple. Right lower leg: No edema. Left lower leg: No edema. Skin: General: Skin is warm and dry. Neurological: General: No focal deficit present. Mental Status: She is alert and oriented to person, place, and time. Psychiatric: Attention and Perception: Attention normal. Mood and Affect: Mood normal. Speech: Speech normal. Behavior: Behavior normal. Behavior is cooperative. Thought Content: Thought content normal. Cognition and Memory: Cognition normal. Judgment: Judgment normal. RESULTS: ECGS: [facility] 05/06/2023: SB 43bpm QTc 414ms 06/17/2022: SB 48bpm QTc 452ms 05/17/2022: SB 59bpm QTC 433ms 05/16/2022: AF 88bpm 05/15/2022 @ [facility]: AF 140bpm ST & T wave abnormalities QTc 463ms 11/04/2021: Marked SB 42bpm QTc 410ms 06/18/2021: SR 82bpm QTc 434ms 02/17/2011: SB 51bpm QTc 398ms Zio Patch: 11/11/2021: CONCLUSIONS: Preliminary Findings Patient had a min HR of 43 bpm, max HR of 210 bpm, and avg HR of 71bpm. Predominant underlying rhythm was Sinus Rhythm. 13 [...] sinus arrhythmia which occurred in the very corporate development officer hours most likely during sleep. The remainder of the SVT could have been PAF but were infrequent and very short. Echocardiograms: 04/2022 @ [facility]: EF 65% moderate AV sclerosis 10/23/2021 @ [facility]: Left ventricular ejection fraction 60-65% Moderate aortic valve sclerosis without stenosis Mild left atrial dilatation 07/29/2021: The left ventricular cavity size is normal. The LV wall thickness is mildly increased (concentric). The left ventricular wall motion is normal. The qualitative LV ejection fraction is 55-59% (normal). Calculated LV ejection Fraction = 57% (bi-plane method of discs). The left ventricular diastolic function is abnormal. The left atrium is mildly enlarged (35-41 ml/m^2). The aortic valve has three leaflets. The aortic valve is mildly calcified. The aortic valve opening is mildly reduced. There is borderline mild aortic valve stenosis. Peak instantaneous pressure gradient across the aortic valve is approximately 22 mmHg, with mean pressure gradient 10 mmHg, and a calculated aortic valve orifice area of 1.2 cm2. Mild aortic valve regurgitation is present. Nuclear Stress Test: 01/01/2022: Lexiscan nuclear cardiac stress test negative for ischemia. Gated SPECT images reveals normal myocardial thickening and wall motion. The LV ejection fraction is calculated at 66%. Lab Work Reviewed: Component Latest Ref Rng 02/24/2023 BUN 6 - 20 mg/dL 23 (H) Creatinine 0.5 - 1.0 mg/dL 0.8 Estimated Glomerular Filtration Rate >=60 mL/min 84 Sodium 135 - 146 mmol/L 141 Potassium 3.5 - 5.1 mmol/L 4.9 Chloride 98 - 107 mmol/L 105 CO2 22 - 32 mmol/L 26 Anion Gap 7 - 15 mmol/L 10 Glucose 70 - 120 mg/dL 97 Albumin 3.8 - 5.0 g/dL 4.2 AST 10 - 35 U/L 13 Alkaline Phosphatase 35 - 130 U/L 86 Bilirubin, Total <=1.2 mg/dL 0.7 Calcium 8.4 - 10.2 mg/dL 9.2 Protein 6.0 - 8.3 g/dL 6.8 ALT 10 - 35 U/L 13 Triglycerides <=174 mg/dL 132 Cholesterol <200 mg/dL 190 HDL Cholesterol >49 mg/dL 38 (L) Non-HDL Cholesterol <=159 mg/dL 152 LDL Cholesterol <=129 mg/dL 126 Hemoglobin A1C 4.0 - 5.6 % 6.0 (H) Estimated Average Glucose <126 mg/dL 126 (H) TSH 0.27 - 4.20 uIU/mL 0.26 (L) T4, Free 0.9 - 1.7 ng/dL 1.3 ASSESSMENT: 1. TBS 2. pAF on started on sotalol 04/2022 and on eliquis [id number] 2 (female, HTN) h/o DCCV 3. HTN 4. HLD 5. Hypothyroidism 6. Depression PLAN: -Discussed again with pt that she will need a pacemaker at some juncture in her life time; she is still not keen with the idea -Continue current low dose sotalol -educated pt about sotalol interactions and checking with pharmacists or our office before startingany new medications -Continue losartan BP is ok -Continue eliquis -Continue with general cardiology f/u -EP f/u 9 months Kristan Hill DO I spent a total of 30 minutes coordinating, documenting, and providing care for this patient excluding time spent in the performance of separately billed services or time spent by another provider/QHP. documented in this encounter Nursing Notes * Rosmery Montes LPN - 05/14/2023 10:13 AM EDT Examination Room: 14 Name: Dipesh Cox Date of : 1960 Reason for Visit: Follow up Problems/Concerns: Denies complaints with afib Interim Hosp(s): 05/06/23 L sided pain (pulled muscle) Chest Pain/SOB: denies [facility] Discussed: Yes MyChart Discussed: ALREADY ACTIVE Patient was instructed to not get up on the exam table until directed and assisted by their provider; patient is to remain seated in the chair/ wheelchair/ exam table for fall prevention and safety reasons. Patient is aware to have assistance to step down off exam table with personnel. Patient voiced full comprehension of instructions. documented in this encounter Plan of Treatment Upcoming Encounters Date Type Specialty Care Team Description 07/19/2023 Office Visit Podiatry Nani Marx DPM [address] [place] [address] 07/22/2023 Office Visit Cardiology Daron Duggan DO [address] [place] [address] 08/27/2023 Office Visit Family Medicine [facility] [address] [facility] [address] 10/26/2023 Office Visit Urology Candido Sanford MD [address] [place] [address] 02/11/2024 Office Visit Cardiology Kristan Hill DO [address] [place] [address] Scheduled Procedures Name Priority [...] D LEVEL ONCE IN A LIFETIME-USE SMARTSET# 22633 Completed 02/20/2020, 11/09/2017, 04/14/2016, Additional history exists [...] as of this encounter Visit Diagnoses Diagnosis Tachy-brennan syndrome (HCC)- Primary Sinoatrial node dysfunction PAF (paroxysmal atrial fibrillation) (HCC) Atrial fibrillation HTN, goal below 130/80 Unspecified essential hypertension Dyslipidemia, goal LDL below 160 Other and unspecified hyperlipidemia documented in this encounter Care Teams Special Agent In Charge Relationship Specialty Start Date End Date Rik Alan, DO [address] [facility] [place] [address] PCP - General Family Medicine 04/17/16 documented as of this encounter"
[2023-11-08] MEDS: ONDANSETRON INJ 2 MG/ML 2 ML VIAL IV PRN ×2 (12:48→20:12)
--- NOTE | 2023-11-08 12:51 | Urology Consultation ---
Date of Consultation November 08, 2023 Assessment & Plan (1) Hydronephrosis with renal and ureteral calculous obstruction: (2) Renal colic: Plan 63yo/F admitted with intractable left flank pain secondary to a 10mm obstructing stone in the proximal left ureter with mild to moderate left hydronephrosis We discussed option for acute stone management with cystoscopy and stent placement. Ureteral stents were discussed as well as postoperative issues and pain management. She is aware a second procedure will be needed for stone treatment in the future. Expected clinical course reviewed extensively with patient. Risks and benefits were discussed. All questions were answered. Patient would like to proceed to OR today for cystoscopy, left retrograde pyelogram, left ureteral stent placement with Dr. Nassar. Risks and benefits to be reviewed with patient by Dr. Nassar. Will cover with IV Ancef preoperatively. Continue supportive care and pain management. Urology will follow. Supervising Physician Co-Signing Physician Notes Discussed patient with JOSE E. Agree with plan. Plan to go to the OR for cystoscopy with left retrograde and left ureteral stent placement due to intractable pain. History of Present Illness History of Present Illness 63-year-old female who presented to the emergency department today with acute left flank pain which started yesterday. She also reported hematuria and urinary frequency for the past 2-3 weeks. On arrival she was afebrile and hypertensive. Labs show no leukocytosis and normal renal function. Urinalysis with 3+ blood, trace LE, >30RBC, >30Epi, negative bacteria, negative nitrite. CT abdomen pelvis obtained and notable for a 10mm obstructing stone in the proximal left ureter with mild to moderate left hydronephrosis and additional bilateral nonobstructing renal stones. ED course: IV fluids, Morphine, Dilaudid. Patient admitted to medicine service for continued care and pain management. CT abdomen pelvis- 1. There is a 10 mm obstructing calculus in the left proximal ureter. This causes mild to moderate left-sided hydronephrosis. 2. Additional bilateral nonobstructing renal calculi as above. 3. There is heterogeneously diminished enhancement of the left kidney as compared to the right, likely related to obstruction and hydronephrosis. Correlate with clinical findings and urinalysis for evidence of superimposed urinary tract infection. 4. Hepatomegaly and hepatic steatosis. 5. Sigmoid diverticulosis without CT evidence of acute diverticulitis. Patient examined at bedside in the ED. Awake, sitting up in bed on arrival. No acute distress. She hasnt had anything to eat or drink since last night. Still with left flank pain. Some nausea due to the pain, no vomiting. No fevers but c/o chills. Some hematuria and dysuria. History of kidney stones approximately 10 years ago. Follows with [facility] urology. Has had hematuria and worsening urinary frequency over the past few weeks. She did see her urologist last week who ordered a CT scan. Per chart review- CT from [facility] urology obtained several days ago and there were no stones in the ureter at that time however there were stones sitting within the upper and lower poles of the kidney. I do not have the CT or report to personally review. Allergies Allergy/AdvReac Type Severity Reaction Status Date / Time lisinopril Allergy Intermediate RASH Verified 12/24/22 08:43 simvastatin Allergy Unknown UNKNOWN Verified 12/24/22 08:43 nickel Allergy itching Verified 12/24/22 08:43 baby oil Allergy Intermediate Rash Uncoded 12/24/22 08:43 Home Medications Medication Instructions Recorded Confirmed Type apixaban 5 mg tablet (Eliquis) 5 mg PO BID #60 tabs 10/23/21 11/08/23 Rx atorvastatin 20 mg tablet 40 mg PO QAM 10/23/21 11/08/23 History levothyroxine 100 mcg tablet 100 mcg PO QAM 10/23/21 11/08/23 History (Euthyrox) acetaminophen 650 mg 1,300 mg PO Q8H PRN Pain 05/15/22 11/08/23 History tablet,extended release alendronate 70 mg tablet 70 mg PO WK 05/15/22 11/08/23 History hydrochlorothiazide 25 mg tablet 25 mg PO QAM 05/16/22 11/08/23 History hydroxyzine HCl 25 mg tablet 25 - 50 mg (1 - 2 x 25 mg) PO Q6H 07/10/22 11/08/23 Rx PRN itching #20 tabs losartan 100 mg tablet 50 mg PO QAM 12/16/22 11/08/23 History nystatin 100,000 unit/gram topical 1 applic topical TID #15 grams 05/06/23 11/08/23 Rx powder mirabegron 50 mg tablet,extended 50 mg PO DAILY 11/08/23 11/08/23 History release 24 hr (Myrbetriq) sotalol 80 mg tablet 40 mg PO BID17 11/08/23 11/08/23 History valacyclovir 1 gram tablet See Rx Instructions .Route 11/08/23 11/08/23 History (Valtrex) .COMPLEX PRN Cold Sores Patient History Medical History (Updated 11/08/23 @ 13:01 by FLYNN Schwarz) Morbid obesity with BMI of 60.0-69.9, adult Frequent urination at night Pre-diabetes Neuropathy Atrial fibrillation on Eliquis Cardiac murmur Follows with Dr. Olga Lidia BARRAZA (hyperlipidemia) Osteoporosis Hypothyroidism Tachycardia-bradycardia syndrome Hypertension Surgical History History of wisdom tooth extraction History of hip surgery BL Family History Other No family history of adverse response to anesthesia Social History Smoking Status: Never smoker Second Hand Exposure: No; Do You Dip or Chew Tobacco: No; Hx Alcohol Use: No Hx Substance Use: No Preferred Language: Bengali Communication Ability: Effective J2Ee Programmer Required: No Beliefs That Will Affect Care: None Current Living Situation: Significant Other Current Living Situation Comment: Home with Fiancee How many Children do You have: 0 Feels Safe at Home: Yes Assistive Devices: Cane and Glasses Review of Systems Review of Systems: All systems reviewed & are unremarkable except as noted in HPI & below Physical Exam Constitutional: + obese; no acute distress and + uncomfo rtable ENMT: Ears: no external ear abnormality Neck: normal visual inspection Respiratory: normal respiratory effort; no respiratory distress and no labored breathing Musculoskeletal: Head/Neck/Chest: normocephalic Skin: No visible rashes or lesions to exposed skin areas Neurologic: moves all extremities and awake Psychiatric: Orientation: alert and oriented x 3 Affect: + anxious affect and + tearful affect Results & Data Vital Signs (Past 12 Hours) Vital Signs Temp Pulse Pulse Resp BP BP Pulse Ox 11/08/23 12:32 72 22 206/97 H 97 11/08/23 12:32 73 22 97 11/08/23 11:09 68 22 95 12/11/23 11:09 67 20 202/75 H 94 11/08/23 10:05 69 11/08/23 09:29 36.1 C L 66 20 203/87 H 97 O2 Del Method 11/08/23 12:32 Room Air 11/08/23 12:32 Room Air 11/08/23 11:09 Room Air 11/08/23 11:09 Room Air 11/08/23 10:05 11/08/23 09:29 Room Air PG Care Time/CCT Total # of Minutes Spent Total Time Spent with Patient: Total time spent is greater than 50% in coordination of care (as documented) at patient's floor/unit and/or counseling patient: Coding Level of Care Code 65193 IN/OBS CONSULT LVL 4,60M Diagnoses Hydronephrosis with renal and ureteral calculous obstruction N13.2 Renal colic N23
[2023-11-08] MEDS: LACTATED RINGER'S 1,000 ML IV SCH (13:30)
[2023-11-08] MEDS ORDERED: ceFAZolin 2000MG 2,000 MG/15 ML SYR IV ONE (13:35)
[2023-11-08] MEDS ORDERED: PROPOFOL IV EMULSION 10 MG/ML 20 ML VIAL IV ONE ×2 (13:47→14:23)
[2023-11-08] MEDS ORDERED: MIDAZOLAM HCL 1 MG/ML 2ML VIAL ONE (13:47)
[2023-11-08] MEDS ORDERED: fentaNYL citrate PF 100 MCG/2 ML VIAL ONE (13:47)
[2023-11-08] MEDS ORDERED: LIDOCAINE 2% 2 ML VIAL/AMP(20MG/ML) INFIL ONE (13:47)
--- NOTE | 2023-11-08 13:50 | Anesthesiology Consultation ---
Date of Service November 08, 2023 Assessment & Plan ASA ASA3 Proposed Anesthesia Anesthesia Type: MAC Risk / Benefits Reviewed With: PT / POA / Parent / Guardian, Accepts Plan and Informed Consent Obtained History Surgery Operation Date: 11/08/23 08:50 Proposed Procedures p Cystoscopy, Left Retrograde Pyelogram, Left Stent Placement - Abhijit Nassar MD Height/Weight Height: 5 ft 4 in Weight: 179.5 kg Allergies Allergy/AdvReac Type Severity Reaction Status Date / Time lisinopril Allergy Intermediate RASH Verified 12/24/22 08:43 simvastatin Allergy Unknown UNKNOWN Verified 12/24/22 08:43 nickel Allergy itching Verified 12/24/22 08:43 baby oil Allergy Intermediate Rash Uncoded 12/24/22 08:43 Medications Home Medications Medication Instructions Recorded Confirmed Last Taken apixaban 5 mg tablet (Eliquis) 5 mg PO BID #60 tabs 10/23/21 11/08/23 12/19/22 atorvastatin 20 mg tablet 40 mg PO QAM 10/23/21 11/08/23 12/21/22 levothyroxine 100 mcg tablet 100 mcg PO QAM 10/23/21 11/08/23 12/24/22 07:00 (Euthyrox) acetaminophen 650 mg 1,300 mg PO Q8H PRN Pain 05/15/22 11/08/23 Unknown tablet,extended release alendronate 70 mg tablet 70 mg PO WK 05/15/22 11/08/23 12/20/22 hydrochlorothiazide 25 mg tablet 25 mg PO QAM 05/16/22 11/08/23 12/17/22 hydroxyzine HCl 25 mg tablet 25 - 50 mg (1 - 2 x 25 mg) PO Q6H 07/10/22 11/08/23 Unknown PRN itching #20 tabs losartan 100 mg tablet 50 mg PO QAM 12/16/22 11/08/23 12/24/22 07:00 nystatin 100,000 unit/gram topical 1 applic topical TID #15 grams 05/06/23 11/08/23 Unknown powder mirabegron 50 mg tablet,extended 50 mg PO DAILY 11/08/23 11/08/23 Unknown release 24 hr (Myrbetriq) sotalol 80 mg tablet 40 mg PO BID17 11/08/23 11/08/23 Unknown valacyclovir 1 gram tablet See Rx Instructions .Route 11/08/23 11/08/23 Unknown (Valtrex) .COMPLEX PRN Cold Sores Active Medications Generic Name Dose Route Start Last Admin Trade Name Lisa PRN Reason Stop Dose Admin Lactated Ringer's 1,000 mls @ 15 mls/hr 11/08/23 13:00 11/08/23 13:30 Lr IV 12/08/23 12:59 15 mls/hr .Q24H BALJEET Administration Ondansetron HCl 4 mg 11/08/23 12:24 11/08/23 12:48 Ondansetron Inj 2 Mg/Ml 2 Ml Vial IV 12/08/23 12:23 4 mg Q6H PRN Administration Nausea NPO Date Last Intake of Fluids: 11/07/23 Time Last Intake of Fluids: 20:30 Date Last Intake of Solids: 11/07/23 Time Last Intake of Solids: 20:30 Past Medical History Medical History Morbid obesity with BMI of 60.0-69.9, adult Frequent urination at night Pre-diabetes Neuropathy Atrial fibrillation on Eliquis Cardiac murmur Follows with Dr. Olga Lidia BARRAZA (hyperlipidemia) Osteoporosis Hypothyroidism Tachycardia-bradycardia syndrome Hypertension Exercise / Class Metabolic Activity II 4-5 Yardwork/Stairs/Walk up hill Past Family History Family History Other No family history of adverse response to anesthesia Past Surgical History Surgical History History of wisdom tooth extraction History of hip surgery BL Past Anesthesia History No Hx of Anesthesia Complications and No Family Hx of Anesthesia Complications History of PONV No Hx of PONV and No Hx of Motion Sickness Social History Smoking Status: Never smoker Do You Dip or Chew Tobacco: No Hx Alcohol Use: No Hx Substance Use: No substance use type: does not use Review of Systems denies fever/cough/ colds/ chest pain/ SOB/ CARINE denies CARINE Physical Exam Vital Signs Last Vital Signs Temp 36.6 C 11/08/23 13:21 Pulse 68 11/08/23 13:21 Resp 22 11/08/23 13:21 BP 187/91 H 11/08/23 13:21 Pulse Ox 92 11/08/23 13:21 O2 Del Method Room Air 11/08/23 13:21 ENMT Mouth: no TMJ abnormality and no dentition abnormality Thyromental Distance: > or= 3.5 Finger Breadths Mallampati Class: II Neck neck extension not limited Respiratory normal respiratory effort; no respiratory distress Auscultation: lungs clear to auscultation bilaterally Cardiovascular Rate/Rhythm: regular rate and regular rhythm Neurologic moves all extremities Psychiatric Orientation: alert and oriented x 3 Testing Laboratory Results 11/08/23 09:57 11/08/23 09:57 PT 10.4 Seconds (9.0-12.0) 11/08/23 09:57 INR 0.9 (0.9-1.1) 11/08/23 09:57 APTT 25 Seconds (21-31) 11/08/23 09:57 Urine Color Yellow 11/08/23 09:50 Urine Appearance Cloudy (Clear) A 11/08/23 09:50 Urine pH 5.5 (4.5-7.5) 11/08/23 09:50 Ur Specific [place] 1.015 (1.000-1.030) 11/08/23 09:50 Urine Protein Negative (Negative) 11/08/23 09:50 Urine Glucose (UA) Negative (Negative) 11/08/23 09:50 Urine Ketones Negative (Negative) 11/08/23 09:50 Urine Nitrite Negative (Negative) 11/08/23 09:50 Ur Leukocyte Esterase Trace (Negative) H 11/08/23 09:50 Urine WBC (Auto) 1-5 /hpf (0-5) 11/08/23 09:50 Urine RBC (Auto) >30 /hpf (0-4) H 11/08/23 09:50 U Hyaline Cast (Auto) 1-5 /lpf (0-5) 11/08/23 09:50 U Epithel Cells (Auto) >30 /lpf (0-5) H 11/08/23 09:50 Urine Bacteria (Auto) Negative (Negative) 11/08/23 09:50
[2023-11-08] MEDS: ceFAZolin 3000MG/72.5 ML BAG IV ONE ×2 (13:52→14:27)
[2023-11-08] MEDS ORDERED: ePHEDrine sulfate 50 MG/ML AMP IV PRN (13:52)
[2023-11-08] MEDS ORDERED: PROMETHAZINE HCL 6.25 MG in SODIUM CHLORIDE 0.9% 50 ML IV PRN (13:52)
[2023-11-08] MEDS ORDERED: fentaNYL citrate PF 100 MCG/2 ML VIAL IV PRN (13:52)
[2023-11-08] MEDS ORDERED: ATROPINE SULFATE 0.1 MG/ML 10ML SYR IV PRN (13:52)
[2023-11-08] MEDS ORDERED: HYDROmorphone INJ 2 MG/ML SYR/VIAL IV PRN (13:52)
--- NOTE | 2023-11-08 14:28 | Operative Report ---
PG Post Operative Report Pre & Post Diagnosis Operation Date: 11/08/23 08:50 Pre-Op Diagnosis: Hydronephrosis with renal and ureteral calculus obstruction; Renal colic Post-Op Diagnosis: Hydronephrosis with renal and ureteral calculus obstruction; Renal colic I identified the patient and participated in the time-out.: Yes Procedure Operation Date: 11/08/23 08:50 Actual Procedures p Cystoscopy, Left Retrograde Pyelogram with radiographic interpretation, Left Ureteral Stent Placement(Left) - Abhijit Nassar MD Surgeon Abhijit Nassar MD Fan Mail Editor None Estimated Blood Loss 0 Findings See Below Stent in appropriate position. Retrograde showed mild hydronephrosis. Specimens None Drains 6 Israeli by 26 cm left ureteral stent Anesthesia Type General Complications none Indications 63-year-old female with left proximal ureteral calculus who opted for stent placement due to intractable pain. Description of Procedure After informed consent was obtained, the patient was transported operative suite. MAC anesthesia was induced. The patient was placed in dorsal lithotomy position prepped and draped in a sterile fashion. They received preoperative Ancef for antibiotic prophylaxis. An appropriate surgical timeout was performed. A 21 Israeli rigid scope was inserted per urethra into the bladder. Garcia cystoscopy revealed no stones or lesions. I turned my attention the left ureteral orifice and intubated this with a 5 Israeli open-ended catheter. A left retrograde pyelogram was shot which showed mild hydronephrosis. A sensor wire was advanced into the kidney and confirmed fluoroscopically. A 6 Israeli by 26 cm left ureteral stent was deployed with a good proximal coil in the renal pelvis and a good distal coil noted in the bladder. Unfortunately the string malfunctioned and it would not remove from the stent so I had to remove the stent, remove the string and then replaced the wire and redeployed the stent with an appropriate curl in the kidney and appropriate coil in the bladder. These were confirmed fluoroscopically and under direct visualization, respectively. The bladder was emptied and the scope was removed. This concluded the end of the case. All counts were correct at the end of the case. I was present, scrubbed, and actively participated for the entirety of the procedure. I attest to the content of the Intraoperative Record and any orders documented therein. Any exceptions are noted below.
[2023-11-08] MEDS ORDERED: DIATRIZOATE MEGLUMINE 30% 100ML VIAL INSTIL ONE (14:39)
--- NOTE | 2023-11-08 15:03 | Anesthesiology Progress Note ---
Date of Service November 08, 2023 Anesthesia Post Procedure Vital Signs Vital Signs: Temp Pulse Pulse Resp BP BP Pulse Ox 11/08/23 14:55 68 14 178/87 H 99 11/08/23 14:45 63 12 164/83 H 100 11/08/23 14:34 36.2 C L 84 14 188/87 H 100 11/08/23 13:21 36.6 C 68 22 187/91 H 92 11/08/23 12:32 72 22 206/97 H 97 11/08/23 12:32 73 22 97 11/08/23 11:09 68 22 95 11/08/23 11:09 67 20 202/75 H 94 11/08/23 10:05 69 11/08/23 09:29 36.1 C L 66 20 203/87 H 97 O2 Del Method O2 Flow Rate 11/08/23 14:55 Room Air 11/08/23 14:45 Oxymask 4 11/08/23 14:34 Oxymask 6 11/08/23 13:21 Room Air 11/08/23 12:32 Room Air 11/08/23 12:32 Room Air 11/08/23 11:09 Room Air 11/08/23 11:09 Room Air 11/08/23 10:05 11/08/23 09:29 Room Air Pain Intensity Flank: Pain Intensity: 2 Transfer of Care Handoff Completed per policy Notes Mental Status: alert / awake / arousable and participated in evaluation Patient Amnestic to Procedure: Yes Nausea / Vomiting: adequately controlled Pain: adequately controlled Airway Patency, RR, SpO2: stable & adequate BP & HR: stable & adequate Hydration State: stable & adequate Anesthetic Complications: no major complications apparent and Pt Satisfied with anesthetic care
--- NOTE | 2023-11-08 15:12 | Fluoroscopy Report ---
FL retrograde includes kub CLINICAL HISTORY: LEFT CYSTO STENTleft-sided cystourethrogram COMPARISON STUDY: CT of same day FLUOROSCOPY TIME: 12.9 seconds FLUOROSCOPY IMAGES: 2 EXPOSURE DOSE: 16.34 mGy FINDINGS: Opacified mildly dilated left renal pelvis. Proximal portion of a left ureteral stent appea rs to be in satisfactory positioning. The distal portion of the stent was not imaged. IMPRESSION: Fluoroscopic assistance was above. ACT 112: Negative or not required by law. Electronically signed by: Harsh Olivarez M.D. 11/08/2023 3:11 PM
[2023-11-08] MEDS ORDERED: hydrALAZINE HCL 20 MG/ML VIAL IV ONE (15:59)
[2023-11-08] MEDS ORDERED: hydrALAZINE HCL 20 MG/ML VIAL ONE (16:01)
[2023-11-08] MEDS ORDERED: PROMETHAZINE HCL INJ 25 MG/ML 1 ML VIAL ONE (16:09)
[2023-11-08] MEDS ORDERED: SODIUM CHLORIDE 0.9% 50 ML BAG ONE (16:09)
[2023-11-08] MEDS: SOTALOL HCL 80 MG TAB PO SCH (17:10)
[2023-11-08 18:49] LABS: Bilirubin Direct 0.1 mg/dl (0-0.2); Bilirubin,Total 0.5 mg/dl (0.2-1.0); Total Protein 7.3 gm/dl (6.0-8.3)
[2023-11-08] MEDS: GABAPENTIN 300 MG CAP PO SCH (21:43)
[2023-11-08] MEDS: ACETAMINOPHEN 325 MG TAB PO PRN (21:43)
[2023-11-08] MEDS: APIXABAN 5 MG TABLET PO SCH (21:44)
[2023-11-09] MEDS: LEVOTHYROXINE SODIUM 100 MCG TABLET PO SCH (06:00)
[2023-11-09 06:40] LABS: Bilirubin Urine Negative (Negative); Blood Urine 3+ (Negative); Color Urine Red; Glucose Urine UA Negative (Negative); Ketones Urine Negative (Negative); Leukocyte Esterase Urine Negative (Negative); Nitrite Urine Negative (Negative); Protein Urine 3+ (Negative); Urobilinogen Urine Negative (Negative); pH Urine 5.5 (4.5-7.5)
[2023-11-09 06:43] LABS: Appearance Urine Cloudy (Clear)
[2023-11-09 06:47] LABS: Epithelial Cell Urine 0-5 /lpf (0-5)
[2023-11-09 06:48] LABS: Bacteria Urine Negative (Negative); RBC Urine >30 /hpf (0-4)
[2023-11-09] MEDS ORDERED: MICONAZOLE NITRATE POWDER 85 GM EXT PRN (07:01)
[2023-11-09 07:32] LABS: Hematocrit (blood only) 32.1 % (37.0-47.0); Hemoglobin 10.3 g/dl (12.0-16.0); Mean Corpuscular Hemoglobin 27.8 pg (25.0-34.0); Mean Corpuscular Hgb Conc 32.1 g/dL (32.0-36.0); Mean Corpuscular Volume 86.5 fL (80.0-100.0); Mean Platelet Volume 9.7 fL (9.4-12.4); Platelet Count 268 K/uL (130-400); RDW Coefficient of Variation 14.6 % (11.5-14.5); RDW Standard Deviation 46.4 fL (36.4-46.3); Red Blood Count 3.71 M/uL (4.20-5.40); White Blood Count 10.88 K/ul (4.8-10.8)
[2023-11-09 07:56] LABS: Albumin Globulin Ratio 1.2 (0.9-2); Albumin Level 3.5 gm/dl (3.4-5.0); BUN Creatinine Ratio 18.5 (10-20); Bilirubin,Total 0.6 mg/dl (0.2-1.0); Calcium 8.7 mg/dl (8.6-10.3); Est GFR (African American) 63.7 ml/min; Globulin 2.9 gm/dl (2.5-4.0); Phosphorus 3.6 mg/dl (2.5-4.9); Potassium 4.2 mmol/L (3.5-5.1); Total Protein 6.4 gm/dl (6.0-8.3)
[2023-11-09] MEDS: VIBEGRON 75 MG TAB PO SCH (08:46)
[2023-11-09] MEDS: LOSARTAN POTASSIUM 50 MG TAB PO SCH (08:47)
[2023-11-09] MEDS: SOTALOL HCL 80 MG TAB PO SCH ×2 (08:47→17:00)
[2023-11-09] MEDS: APIXABAN 5 MG TABLET PO SCH ×2 (08:47→20:14)
[2023-11-09] MEDS: ATORVASTATIN 40 MG TAB PO SCH (08:48)
[2023-11-09] MEDS: LACTATED RINGER'S 1,000 ML IV SCH (11:59)
--- NOTE | 2023-11-09 13:26 | Urology Progress Note ---
Date of Service November 09, 2023 Assessment & Plan (1) Hydronephrosis with renal and ureteral calculous obstruction: (2) Renal colic: Plan 63yo/F admitted with intractable left flank pain secondary to a 10mm obstructing stone in the proximal left ureter with mild to moderate left hydronephrosis - POD #1 s/p cystoscopy and left ureteral stent placement. - Overall feeling much better today, left flank pain has improved. - She is tolerating the ureteral stent with minimal bother. - Afebrile and hemodynamically stable. - Labs today reviewedWBC 10.88, creatinine 1.08. - Urine culture pending. - Okay to d/c from perspective when medically stable - Recommend d/c with Pyridium and pain medication for stent management as needed. - Expected clinical course reviewed, all questions answered - Will arrange outpatient follow-up with our service. - Urology will sign off. Please contact any further questions or concerns. Admission and Anticipated Discharge Date Admission Date: November 08, 2023 Subjective Patient examined at bedside this afternoon. Awake, resting in bed on arrival. No acute distress. Left flank pain has significantly improved since stent placement yesterday. Denies fevers, chills, nausea, vomiting. She does report 1 episode of emesis last night. Notes some hematuria and dysuria with voiding. Review of Systems Constitutional: as per Subjective / HPI Gastrointestinal: as per Subjective / HPI Genitourinary: as per Subjective / HPI Physical Exam Constitutional: no acute distress Respiratory: no respiratory distress and no labored breathing Neurologic: moves all extremities and awake Psychiatric: A+Ox3, euthymic affect Results & Data Vital Signs (Past 12 Hours) Vital Signs Temp Pulse Pulse Resp BP BP Pulse Ox 11/09/23 11:32 36.6 C 73 18 122/70 96 11/09/23 07:49 36.7 C 66 18 165/82 H 96 11/09/23 05:57 87 11/09/23 03:51 36.5 C 69 18 151/57 H 97 O2 Del Method 11/09/23 11:32 Room Air 11/09/23 07:49 Room Air 11/09/23 05:57 11/09/23 03:51 Room Air PG Care Time/CCT Total # of Minutes Spent Total Time Spent with Patient: Total time spent is greater than 50% in coordination of care (as documented) at patient's floor/unit and/or counseling patient: Coding Level of Care Code 11262 SUB INP/OBS CARE MIN Diagnoses Hydronephrosis with renal and ureteral calculous obstruction N13.2 Renal colic N23
--- NOTE | 2023-11-09 14:04 | Hospitalist Progress Note ---
Date of Service November 09, 2023 Assessment & Plan (1) Calculus of proximal left ureter: (2) Atrial fibrillation: (3) Hypothyroidism: (4) Obesity: (5) HLD (hyperlipidemia): Plan Ms. Cox is a 63 year old female with a PMH of Atrial Fibrillation (On Eliquis), HDL, and Hypothyroidism that presents to the ED today with acute left flank pain. She has been complaining of having hematuria for three weeks. She does follow with [facility] for urine incontinence and nocturia (6-7 x per night). Patient afebrile and does not appear systemic/does not appear toxic. Hypertensive in ED likely secondary to pain. She was given Dilaudid in the ED with some relief. Urology saw the patient and discussed acute stone management with cystoscopy and stent placement. Ureteral stents were discussed as well as postoperative issues and pain management. It will be necessary for her to undergo a second procedure for stone treatment in the future. Abdomen/Pelvis CT reveals There is a 10 mm obstructing calculus in the left proximal ureter. This causes mild to moderate left-sided hydronephrosis. 2. Additional bilateral nonobstructing renal calculi as above. 3. There is heterogeneously diminished enhancement of the left kidney as compared to the right, likely related to obstruction and hydronephrosis. Correlate with clinical findings and urinalysis for evidence of superimposed urinary tract infection. 4. Hepatomegaly and hepatic steatosis. 5. Sigmoid diverticulosis without CT evidence of acute diverticulitis. Spoke with Urology; likely plan for stent placement proceed to OR today for cystoscopy, left retrograde pyelogram, left ureteral stent placement with Dr. Nassar. For now, keep NPO (has not eaten anything today), and pain control. Urology will initiate preop abx. Patient cleared for surgery from a hospitalist perspective. Calculus of proximal left ureter with hydronephrosis: Acute History of kidney stones; 10 years ago without surgical intervention abdomen/pelvis CT: 1. There is a 10 mm obstructing calculus in the left proximal ureter. This causes mild to moderate left-sided hydronephrosis. 2. Additional bilateral nonobstructing renal calculi as above. 3. There is heterogeneously diminished enhancement of the left kidney as compared to the right, likely related to obstruction and hydronephrosis. Correlate with clinical findings and urinalysis for evidence of superimposed urinary tract infection. 5. Sigmoid diverticulosis without CT evidence of acute diverticulitis. No Leukocytosis, does not appear toxic (+) flank/abdominal pain; Dilaudid given in ED; caused nausea; Zofran administered. Keep NPO Urology planning to take to OR for stent placement this afternoon Urology will order pre-op abx Status post cystoscopy, left retrograde pyelogram and left ureteral stent placement on 11/08/2023 Still continues to have some hematuria Clinically much better Appreciate urology follow-up and recommendation for discharge Awaiting urine culture and clearance of hematuria prior to discharge Atrial fibrillation: Chronic stable Diagnosed 2020; spontaneous conversion to NSR Takes Eliquis, sotalol; continue Did not take Eliquis or any of her medications this AM Resume Eliquis tonight; discussed with Urology Rate is controlled denies any cardiac symptoms Hepatomegaly: Acute Noted on CT Check LFTs and consider liver US Denies alcohol use H/O Urolithiasis: Follows with Dr. Sanford [facility] Urinary incontinence and nocturia 6-7 times per night No surgery in the past Consideration discussed regarding starting oxybutynin HTN: Chronic stable Follows with outpatient cardiology Currently hypertensive suspect due to pain Takes losartan; continue Blood pressure is controlled HLD: Chronic stable Last lipid panel 10/26/2023; TG 160, HDL 37 LDL 128 Takes atorvastatin; continue Hypothyroidism: Chronic stable Most recent TSH 09/11/2023; 3.55 Takes levothyroxine; continue Disposition: PCP: Dr. Alan Code Status: Full Code VTE Prophylaxis: On Eliquis Remains medically stable Likely discharge tomorrow Admission and Anticipated Discharge Date Admission Date: November 08, 2023 Subjective 11/09/2023 The patient was seen and examined in medical telemetry unit in presence of the She is a status post a left retrograde pyelogram and left ureteral stent placement Complains to hematuria but otherwise denies any pain Review of Systems Review of Systems: All systems reviewed and are unremarkable except as noted below Physical Exam Physical Exam: Sitting on bed without any acute distress Constitutional: well developed, well nourished, + ill appearing and + morbidly obese Eyes: PERRL, conjunctivae normal, anicteric sclerae ENMT: external ear and nose normal, oropharynx normal Neck: trachea midline, no thyromegaly Respiratory: no respiratory distress Auscultation: lungs clear to auscultation bilaterally Cardiovascular: Rate/Rhythm: regular rate and regular rhythm; not tachycardic Heart Sounds: normal S1, normal S2 and + murmur (2/6 ESM over aortic area) Extremities: + edema (1+ bilateral leg edema//lymphedema) Gastrointestinal (Abdomen): Inspection/Auscultation: + abdomen distended and normal bowel sounds Percussion/Palpation: abdomen soft; abdomen nontender Musculoskeletal: No acute arthritis involving any joint Neurologic: normal touch/pain/proprioception and moves all extremities; no focal motor deficits Lymphatic: no cervical or axillary lymphadenopathy Results & Data Results & Data Vital Signs (Past 12 Hours) Vital Signs Temp Pulse Pulse Resp BP BP Pulse Ox 11/09/23 11:32 36.6 C 73 18 122/70 96 11/09/23 07:49 36.7 C 66 18 165/82 H 96 11/09/23 05:57 87 11/09/23 03:51 36.5 C 69 18 151/57 H 97 O2 Del Method 11/09/23 11:32 Room Air 11/09/23 07:49 Room Air 11/09/23 05:57 11/09/23 03:51 Room Air Laboratory Results Short CBC 11/09/23 Range/Units 07:08 WBC 10.88 H (4.8-10.8) K/ul Hgb 10.3 L (12.0-16.0) g/dl Hct 32.1 L (37.0-47.0) % Plt Count 268 (130-400) K/uL BMP 11/09/23 07:08 Sodium 139 Potassium 4.2 Chloride 104 Carbon Dioxide 29 BUN 20 Creatinine 1.08 Glucose 97 Calcium 8.7 Liver Function 11/08/23 11/09/23 Range/Units 18:17 07:08 Total Bilirubin 0.5 0.6 (0.2-1.0) mg/dl Direct Bilirubin 0.1 (0-0.2) mg/dl AST 14 12 L (13-39) U/L ALT 10 8 (7-52) U/L Alkaline Phosphatase 66 56 (34-104) U/L Albumin 4.0 3.5 (3.4-5.0) gm/dl Urine 11/09/23 Range/Units 06:03 Urine Color Red Urine Appearance Cloudy A (Clear) Urine pH 5.5 (4.5-7.5) Ur Specific [place] 1.020 (1.000-1.030) Urine Protein 3+ H (Negative) Urine Glucose (UA) Negative (Negative) Medications Administered Current Inpatient Medications Acetaminophen (Acetaminophen 325 Mg Tab) 650 mg PO Q4H PRN PRN Reason: Pain or Fever Stop: 12/08/23 12:23 Last Admin: 11/08/23 21:43 Dose: 650 mg Al Hydrox/Mg Hydrox/Simethicone (Aluminum/Magnesium Susp 30 Ml Udc) 15 ml PO Q4H PRN PRN Reason: Dyspepsia Stop: 12/08/23 12:23 Apixaban (Apixaban 5 Mg Tablet) 5 mg PO BID [facility] Stop: 12/08/23 20:59 Last Admin: 11/09/23 08:47 Dose: 5 mg Atorvastatin Calcium (Atorvastatin 40 Mg Tab) 40 mg PO [facility] Stop: 12/09/23 08:59 Last Admin: 11/09/23 08:48 Dose: 40 mg Gabapentin (Gabapentin 300 Mg Cap) 300 mg PO HS [facility] Stop: 12/08/23 21:14 Last Admin: 11/08/23 21:43 Dose: 300 mg Lactated Ringer's (Lr) 1,000 mls @ 15 mls/hr IV .Q24H [facility] Stop: 12/08/23 12:59 Last Admin: 11/09/23 11:59 Dose: Not Given Levothyroxine Sodium (Levothyroxine Sodium 100 Mcg Tablet) 100 mcg PO DAILYBB [facility] Stop: 12/09/23 06:29 Last Admin: 11/09/23 06:00 Dose: 100 mcg Losartan Potassium (Losartan Potassium 50 Mg Tab) [facility] Stop: 12/09/23 08:59 Last Admin: 11/09/23 08:47 Dose: 50 mg Magnesium Hydroxide (Magnesium Hydroxide Susp 30 Ml Udc) 30 ml PO Q12H PRN PRN Reason: Constipation Stop: 12/08/23 12:23 Miconazole Nitrate (Miconazole Nitrate Powder 85 Gm) 1 appln EXT PRN PRN PRN Reason: Affected Skin Folds Stop: 12/09/23 07:00 Ondansetron HCl (Ondansetron Inj 2 Mg/Ml 2 Ml Vial) 4 mg IV Q6H PRN PRN Reason: Nausea Stop: 12/08/23 12:23 Last Admin: 11/08/23 20:12 Dose: 4 mg Polyethylene Glycol (Polyethylene (Miralax) 17 Gm Pack) 17 gm PO DAILY PRN PRN Reason: Constipation Stop: 12/08/23 12:23 Sotalol HCl (Sotalol Hcl 80 Mg Tab) 40 mg PO BID17 [facility] Stop: 12/08/23 16:59 Last Admin: 11/09/23 08:47 Dose: 40 mg Vibegron (Vibegron 75 Mg Tab) 75 mg PO DAILY [facility] Stop: 12/09/23 08:59 Last Admin: 11/09/23 08:46 Dose: 75 mg
--- OUTSIDE RECORDS SUMMARY | 2023-11-09 17:01 | External Medical Summary | Summary of Care ---
Author Name Unknown Organization [facility] Address [address] [facility] [place] [address] Phone [phone] Care Team Providers Care Behavioral Health Worker Name Role Phone Rik Alan Primary Care Provider [phone] Encounter Details Date Type Department Care Team (Late st Contact Info) Description 11/09/2023 Telephone Urology Evelin Moore [address] [place] [address] [place] [id number] Candido Sanford MD [address] [place] [address] [place] [id number] Allergies Active Allergy Reactions Criticality Noted Date Comments Baby Oil High 05/15/2022 Other reaction(s): Rash Lisinopril Cough 09/10/2010 Other Allergy (See Comments) Itching 014 BABY OIL Simvastatin 01/24/2008 myalgias documented as of this encounter (statuses as of 11/09/2023) Medications Medication Sig Dispensed Refills Start Date [...] Information Patient not taking.Reported on 09/03/2023 Nystatin [id number] UNIT/GM External Powder 3 times a day. 0 05/06/2023 Active valACYclovir HCl 1 GM Oral Tablet (Valtrex)Indications :Cold sore Take 2 Tablets by mouth in the morning and 2 Tablets before bedtime. For 1 day for cold sores. 4 Tablet 11 07/29/2023 Active Additional Information Patient not taking.Reported on 10/26/2023 Gabapentin 600 MG Oral Tablet (Neurontin)Indicatio ns:Idiopathic [...] 10/26/2023 Active Apixaban 5 MG Oral Tablet (Eliquis)Indications :Essential hypertension with goal blood pressure less than 140/90 TAKE 1 TABLET BY MOUTH IN THE MORNING AND 1 TABLET BEFORE BEDTIME. 180 Tablet 0 11/04/2023 4 Active documented as of this encounter (statuses as of 11/09/2023) Active Problems Problem Noted Date Diagnosed Date [...] as of this encounter (statuses as of 11/09/2023) Resolved Problems Problem Noted Date Diagnosed Date [...] as of this encounter (statuses as of 11/09/2023) Immunizations Name Administration Dates Next Due COVID-19 mRNA, LNP-s, PF, 18 + or 6-11Yrs (Moderna) 10/31/2021 COVID-19, LNP-s, No Preserve , Alexx-sucrose, Ages 12+ (Pfizer) 06/02/2022 Covid-19 Ad26, Single Dose (Aaron/J&J) 03/09/2021 Pneumococcal Conjugate Vacci ne, 20-valent ([id number]) 02/24/2023 Seasonal Influenza, PF, 6 M & above, IM , (FluLaval or Fluzone) 08/27/2023,08/25/2022,09/09/2021,2019,08/15/2019,08/16/2018 Seasonal Influenza, Quadriva lent, No Preserve, [...] encounter Miscellaneous Notes * Telephone Encounter - Mary Ann Hamilton LPN - 11/09/2023 9:11 AM EST Patients HIPAA contact Ray was made aware, he states the patient is currently admitted at [facility] for the kidney stones. They advised surgery get scheduled sobia due to a stone being 10 mm. He is requesting the soonest available appointment for her to discuss surgery. Please advise. * Telephone Encounter - Mary Ann Hamilton LPN - 11/09/2023 9:11 AM EST ----- Message from Candido Sanford MD sent at 11/08/2023 12:56 PM EST ----- OK to notify patient CT scan shows bilateral kidney stones, no obstruction. We can review at the time of follow-up visit, contact us with any kidney stone pain. Patiencex, HM documented in this encounter Plan of Treatment Upcoming Encounters Date Type Department Care Team (Late st Contact Info) Description 11/12/2023 1:00 PM EST Office Visit Orthopaedics [facility] [address] [id number] Sree Monsivais MD [address] [place] [address] 02/09/2024 9:30 AM EDT Cardiac Studies Cardiac Studies, Health system [address] [facility] [place] [address] 03/07/2024 10:00 AM EDT Office Visit Cardiology, Health system [address] [place] [address] Soila Esparza CRNP [address] [facility] [place] [address] 03/07/2024 1:40 PM EDT Office Visit Family Practice [facility] [address] [facility] [place] [address] Rik Alan DO [address] [facility] [place] [address] 03/20/2024 3:30 PM EDT Procedure Only Urology, Health system [address] [place] [address] Candido Sanford MD [address] [place] [address] [place] [address] Scheduled Procedures Name Priority Associated Diagnoses Date/Ti [...] D LEVEL ONCE IN A LIFETIME-USE SMARTSET# [id number] Completed 02/20/2020, 11/09/2017, 04/14/2016, Additional history exists [...] filedocumented as of this encounter Care Teams Behavioral Health Worker Relationship Specialty Start Date End Date Rik Alan DO [address] [place] [address] PCP - General Family Medicine 04/17/16 documented as of this encounter
[2023-11-09] MEDS: ACETAMINOPHEN 325 MG TAB PO PRN (19:13)
[2023-11-09] MEDS: GABAPENTIN 300 MG CAP PO SCH (20:14)
[2023-11-10] MEDS: LEVOTHYROXINE SODIUM 100 MCG TABLET PO SCH (05:49)
[2023-11-10] MEDS: LOSARTAN POTASSIUM 50 MG TAB PO SCH (09:32)
[2023-11-10] MEDS: SOTALOL HCL 80 MG TAB PO SCH ×2 (09:32→17:58)
[2023-11-10] MEDS: VIBEGRON 75 MG TAB PO SCH (09:32)
[2023-11-10] MEDS: ATORVASTATIN 40 MG TAB PO SCH (09:33)
[2023-11-10] MEDS: APIXABAN 5 MG TABLET PO SCH ×2 (09:34→20:48)
[2023-11-10] MEDS: LACTATED RINGER'S 1,000 ML IV SCH (12:29)
--- NOTE | 2023-11-10 14:07 | XRay Report ---
XR foot LT 2V HISTORY: 63 years-old Female fall, foot pain acute left foot pain status post fall COMPARISON: None TECHNIQUE: 2 views of the left foot FINDINGS: Demineralized appearance of the bones. Pes planus. Arterial calcifications. Spurring of the calcaneus . There is severe degeneration of the talonavicular joint with prominent marginal osteophytic spurrin g. Hallux valgus. No acute fracture, dislocation or radiopaque foreign body. Diffuse soft tissue swel ling. IMPRESSION: No acute fracture identified. ACT 112: Negative or not required by law. The above report was generated using voice recognition software. It may contain grammatical, syntax o r spelling errors. Electronically signed by: Harsh Olivarez M.D. 11/10/2023 2:05 PM
--- NOTE | 2023-11-10 14:14 | XRay Report ---
RIGHT KNEE 2 VIEWS CLINICAL HISTORY: Fall. Right knee pain. FINDINGS: AP and crosstable lateral views of the right knee are compared to study dated 02/04/2021. The skeletal structures are osteopenic. No fracture is seen. There is mild tricompartmental degenerative joint space narrowing. There are patellar enthesophytes, marginal osteophytes, and degenerative beak ing of the tibial spine. There is no radiographic evidence of joint effusion. The overlying soft tiss ues are normal as imaged. Atherosclerotic calcification is noted in the regional arteries. IMPRESSION: No acute bony abnormality is identified. Electronically signed by: Leland Tate M.D. 11/10/2023 2:12 PM
--- NOTE | 2023-11-10 14:17 | XRay Report ---
RIGHT FOOT 2 VIEWS CLINICAL HISTORY: Fall with right foot pain. FINDINGS: AP and crosstable lateral views of the right foot are obtained. No prior studies are availa ble for comparison at the time of dictation. The skeletal structures are heterogeneously osteopenic. There is a comminuted and angulated age-indeterminate fracture through the distal shaft and head of t he first proximal phalanx. No additional findings are suspicious for acute fracture. Mild osteoarthri tic change is noted throughout the foot. Moderate osteoarthritic change is noted at the tibiotalar ar ticulation. There are small dorsal and large plantar heel spurs. Degenerative spurring is seen along the dorsal aspect of the tarsal bones. There is mild soft tissue edema throughout the foot. Atheroscl erotic calcification is observed in the residual arteries. IMPRESSION: 1. Age-indeterminate and likely acute fracture of the first proximal phalanx as above. 2. No additional findings are suspicious for acute fracture. 3. Osteopenia with degenerative change and heel spurs as above. Electronically signed by: Leland Tate M.D. 11/10/2023 2:16 PM
--- NOTE | 2023-11-10 15:13 | XRay Report ---
XR knee LT 1 or 2V routine CLINICAL HISTORY: fall, knee pain COMPARISON: None FINDINGS: Exam is compromised given difficulty positioning although is diagnostic. No acute fracture is present. Moderate left knee osteoarthritis with joint space narrowing and osteophytosis within th e medial and lateral compartments. IMPRESSION: 1. No acute fracture within the left knee. 2. Moderate left knee osteoarthritis. ACT 112: Negative or not required by law. Electronically signed by: Giorgio Rincon M.D. 11/10/2023 3:11 PM
--- NOTE | 2023-11-10 15:32 | Orthopedic Consultation ---
Date of Service November 10, 2023 Assessment & Plan (1) Foot pain: I went over the x-rays. She is not having any pain in over the proximal phalanx of the great toe of her right foot.. This is a chronic fracture that was seen on the x-rays. She does have some mild foot pain bilaterally and some mild knee pain. She does have chronic osteoarthritis of both feet and both knees. At this point no orthopedic intervention is necessary. She is stable to return home when medically ready. She will need to follow-up with orthopedics on an as-needed basis. History of Present Illness Reason for Consultation: Right foot pain. Requesting Physician: . Attending Physician: Deedee Flanagan MD Dipesh is a 63-year-old female who is in the hospital for some renal issues. She had a fall last night. She injured both of her feet and both of her knees. She is a minimal ambulator. She is morbidly obese. X-rays were obtained of both feet and both knees. The x-rays of her right foot showed an age-indeterminate right proximal phalanx fracture. Orthopedics was consulted to evaluate and treat.. Allergies Allergy/AdvReac Type Severity Reaction Status Date / Time lisinopril Allergy Intermediate RASH Verified 12/24/22 08:43 simvastatin Allergy Unknown UNKNOWN Verified 12/24/22 08:43 nickel Allergy itching Verified 12/24/22 08:43 baby oil Allergy Intermediate Rash Uncoded 12/24/22 08:43 Home Medications Medication Instructions Recorded Confirmed Type apixaban 5 mg tablet (Eliquis) 5 mg PO BID #60 tabs 10/23/21 11/08/23 Rx atorvastatin 20 mg tablet 40 mg PO QAM 10/23/21 11/08/23 History levothyroxine 100 mcg tablet 100 mcg PO QAM 10/23/21 11/08/23 History (Euthyrox) acetaminophen 650 mg 1,300 mg PO Q8H PRN Pain 05/15/22 11/08/23 History tablet,extended release alendronate 70 mg tablet 70 mg PO WK 05/15/22 11/08/23 History hydrochlorothiazide 25 mg tablet 25 mg PO QAM 05/16/22 11/08/23 History hydroxyzine HCl 25 mg tablet 25 - 50 mg (1 - 2 x 25 mg) PO Q6H 07/10/22 11/08/23 Rx PRN itching #20 tabs losartan 100 mg tablet 50 mg PO QAM 12/16/22 11/08/23 History nystatin 100,000 unit/gram topical 1 applic topical TID #15 grams 05/06/23 11/08/23 Rx powder mirabegron 50 mg tablet,extended 50 mg PO DAILY 11/08/23 11/08/23 History release 24 hr (Myrbetriq) sotalol 80 mg tablet 40 mg PO BID17 11/08/23 11/08/23 History valacyclovir 1 gram tablet See Rx Instructions .Route 11/08/23 11/08/23 History (Valtrex) .COMPLEX PRN Cold Sores Past Med/Surg History Medical History Morbid obesity with BMI of 60.0-69.9, adult Frequent urination at night Pre-diabetes Neuropathy Atrial fibrillation on Eliquis Cardiac murmur Follows with Dr. Olga Lidia BARRAZA (hyperlipidemia) Osteoporosis Hypothyroidism Tachycardia-bradycardia syndrome Hypertension Surgical History History of wisdom tooth extraction History of hip surgery BL Family History Other No family history of adverse response to anesthesia Social History Smoking Status: Former smoker Second Hand Exposure: No; Do You Dip or Chew Tobacco: No; Hx Alcohol Use: Yes Alcohol type: other Hx Substance Use: No Preferred Language: Mongolian Communication Ability: Effective Engineering Test Specialist Required: No Beliefs That Will Affect Care: None Current Living Situation: Significant Other Current Living Situation Comment: Home with Ann Marie How many Children do You have: 0 Feels Safe at Home: Yes Assistive Devices: Cane and Walker Review of Systems All systems reviewed & are unremarkable except as noted in HPI & below. Physical Exam On physical examination of both knees, she is a very large soft tissue envelope. She has range of motion from 5 to 90 degrees. She has pain of the distal femoral condyles. No signs of fracture or effusion. Examination of both feet show no tenderness palpation along the hallux or the proximal phalanx. There is no swelling. There is no bruising or signs of fracture. She is a little bit of lateral sided pain but not to palpation.. Constitutional WD/WN, vitals as above Eyes PERRL, conjunctivae normal, anicteric sclerae ENMT external ear and nose normal, oropharynx normal Neck trachea midline, no thyromegaly Respiratory normal respiratory effort Cardiovascular RRR, no murmur, no edema Gastrointestinal (Abdomen) normal bowel sounds, soft, nontender, no hepatosplenomegaly Psychiatric A+Ox3, euthymic affect Results & Data Results & Data Laboratory Results . Diagnostic Findings X-rays of both knees show mild to moderate osteoarthritis without any evidence of fracture. X-rays of the left foot show no evidence of fracture. There is signs of a skew foot. X-rays of the right foot show a skew foot and show an age-indeterminate transverse fracture through the proximal phalanx of the right great toe. This appears to be mostly a chronic fracture.. PG Care Time/CCT Total # of Minutes Spent Total Time Spent with Patient: Total time spent is greater than 50% in coordination of care (as documented) at patient's floor/unit and/or counseling patient: Coding Level of Care Code 89869 IN/OBS CONSULT LVL 4,60M Diagnoses Foot pain M79.673
--- NOTE | 2023-11-10 15:41 | Hospitalist Progress Note ---
Date of Service November 10, 2023 Assessment & Plan (1) Calculus of proximal left ureter: (2) Atrial fibrillation: (3) Hypothyroidism: (4) Obesity: (5) HLD (hyperlipidemia): Plan 63 year old female with a PMH of Atrial Fibrillation (On Eliquis), HDL, and Hypothyroidism that presents to the ED 11/08/23 with acute left flank pain. 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 She does follow with [facility] for urine incontinence and nocturia (6-7 x per night). Patient afebrile and does not appear systemic/does not appear toxic. Hypertensive in ED likely secondary to pain. She is being managed for the following: Calculus of proximal left ureter with hydronephrosis: Acute History of kidney stones; 10 years ago without surgical intervention Admitting abdomen/pelvis CT: 1. There is a 10 mm obstructing calculus in the left proximal ureter. This causes mild to moderate left-sided hydronephrosis. 2. Additional bilateral nonobstructing renal calculi as above. 3. There is heterogeneously diminished enhancement of the left kidney as compared to the right, likely related to obstruction and hydronephrosis. Correlate with clinical findings and urinalysis for evidence of superimposed urinary tract infection. 5. Sigmoid diverticulosis without CT evidence of acute diverticulitis. No Leukocytosis, does not appear toxic at presentation (+) flank/abdominal pain; Dilaudid given in ED; caused nausea; Zofran administered. status post cystoscopy, left retrograde pyelogram, left ureteral stent placement 11/08/2023 by Abhijit Nassar MD Patient reports ongoing hematuria, H&H has been stable, patient denies any dizziness. Urology evaluated, by resuming pain medication for stent management. Outpatient follow-up with urology upon discharge. Will use 5-day course of antibiotic as ongoing hematuria [that has increased after stent placement] per patient without any improvement. Atrial fibrillation: Chronic stable Diagnosed 2020; spontaneous conversion to NSR Takes Eliquis, sotalol; continue Hepatomegaly: Noted on CT, lft fairly wnl. Denies alcohol use f/u as OP w/ PCP for long term care phlebotomist monitoring. H/O Urolithiasis: Follows with Dr. Sanford [facility] Urinary incontinence and nocturia 6-7 times per night No surgery in the past Consideration discussed regarding starting oxybutynin c/w home vibegron. HTN: Chronic stable, c/w home losartan. HLD: Chronic stable, c/w home statin. Hypothyroidism: Chronic stable, c/w home levothyroxine. Disposition: PCP: Dr. Alan Code Status: Full Code VTE Prophylaxis: On Eliquis Admission and Anticipated Discharge Date Admission Date: November 08, 2023 Subjective Patient was seen and examined at bedside. Patient was lying in bed, on room air, resting comfortably, not in any acute distress. Patient reports falling overnight while trying to get out of bed when her walker " flew away" and landed on her knees and hurt her both feet. Today she feels more pain in her right knee and right foot. xr foot and knees reviewed, consulted ortho. Patient otherwise reports eating okay and moving bowels okay, continues to report bloody urine which has not increased but has stayed about the same since the day of stenting. Physical Exam Physical Exam: GENERAL: Alert and oriented x3. NAD, on RA. Morbidly obese. HEENT: No pallor, no icterus. Pupils equal, round and reactive to light. Oral mucosa moist. NECK: No JVD, no neck masses. HEART: S1 and S2 heard. Regular rate and rhythm. + murmur, no gallop. RESPIRATORY SYSTEM: Normal AP diameter. No accessory muscle use. No wheezing, no crackles. ABDOMEN: Soft, bowel sounds present, nontender, no distention. CENTRAL NERVOUS SYSTEM: No facial droop. Speech is clear. Obeys simple commands. Moves extremities. EXTREMITIES: 1+ ble edema, no erythema seen. Right knee bruise noted. No tenderness on bilateral knee exam. No bruise noted bilateral feet. Results & Data Results & Data Vital Signs (Past 12 Hours) Vital Signs Temp Pulse Pulse Resp BP Pulse Ox O2 Del Method 11/10/23 15:11 36.7 C 64 16 102/66 94 Room Air 11/10/23 12:12 36.5 C 63 18 113/46 L 97 Room Air 11/10/23 09:47 54 L 11/10/23 09:47 Room Air 11/10/23 07:27 36.7 C 76 18 156/72 H 100 Room Air
[2023-11-10] MEDS: cefTRIAXone SODIUM 2,000 MG in DEXTROSE 5 % MINI-B 50 ML IV SCH (17:12)
[2023-11-10] MEDS: DICLOFENAC SOD 1% GEL 100 GM TUBE EXT SCH ×2 (17:13→21:17)
[2023-11-10] MEDS ORDERED: CHLORASEPTIC (PHENOL) 1.4% SOLN 180 ML BTL MT PRN (20:26)
[2023-11-10] MEDS: GABAPENTIN 300 MG CAP PO SCH (20:48)
[2023-11-11] MEDS: DICLOFENAC SOD 1% GEL 100 GM TUBE EXT SCH ×4 (05:38→21:51)
[2023-11-11] MEDS: LEVOTHYROXINE SODIUM 100 MCG TABLET PO SCH (05:38)
[2023-11-11 07:33] LABS: Hematocrit (blood only) 30.2 % (37.0-47.0); Hemoglobin 9.5 g/dl (12.0-16.0); Mean Corpuscular Hemoglobin 27.5 pg (25.0-34.0); Mean Corpuscular Hgb Conc 31.5 g/dL (32.0-36.0); Mean Corpuscular Volume 87.5 fL (80.0-100.0); Mean Platelet Volume 9.9 fL (9.4-12.4); Platelet Count 258 K/uL (130-400); RDW Coefficient of Variation 15.1 % (11.5-14.5); RDW Standard Deviation 48.1 fL (36.4-46.3); Red Blood Count 3.45 M/uL (4.20-5.40); White Blood Count 8.43 K/ul (4.8-10.8)
[2023-11-11 07:51] LABS: BUN Creatinine Ratio 22.5 (10-20); Calcium 8.6 mg/dl (8.6-10.3); Creatinine Clr Calc Pharmacy 50.4 ml/min; Est GFR (African American) 32.8 ml/min; Est GFR (Non-African American) 28.3 ml/min; Magnesium 2.2 mg/dl (1.7-2.4); Phosphorus 4.4 mg/dl (2.5-4.9); Potassium 4.1 mmol/L (3.5-5.1)
[2023-11-11] MEDS: VIBEGRON 75 MG TAB PO SCH (09:05)
[2023-11-11] MEDS: ATORVASTATIN 40 MG TAB PO SCH (09:05)
[2023-11-11] MEDS: SOTALOL HCL 80 MG TAB PO SCH ×2 (09:05→18:22)
[2023-11-11] MEDS: APIXABAN 5 MG TABLET PO SCH ×2 (09:05→20:01)
[2023-11-11] MEDS: LOSARTAN POTASSIUM 50 MG TAB PO SCH (09:05)
[2023-11-11] MEDS ORDERED: ERGOCALCIFEROL 50,000 UNITS 1250 MCG CAP PO ONE (13:37)
--- NOTE | 2023-11-11 15:07 | Hospitalist Progress Note ---
Date of Service November 11, 2023 Assessment & Plan (1) Calculus of proximal left ureter: (2) Atrial fibrillation: (3) Hypothyroidism: (4) Obesity: (5) HLD (hyperlipidemia): Plan 63 year old female with a PMH of Atrial Fibrillation (On Eliquis), HDL, and Hypothyroidism that presents to the ED 11/08/23 with acute left flank pain. 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 She does follow with [facility] for urine incontinence and nocturia (6-7 x per night). Patient afebrile and does not appear systemic/does not appear toxic. Hypertensive in ED likely secondary to pain. She is being managed for the following: Calculus of proximal left ureter with hydronephrosis: Acute History of kidney stones; 10 years ago without surgical intervention Admitting abdomen/pelvis CT: 1. There is a 10 mm obstructing calculus in the left proximal ureter. This causes mild to moderate left-sided hydronephrosis. 2. Additional bilateral nonobstructing renal calculi as above. 3. There is heterogeneously diminished enhancement of the left kidney as compared to the right, likely related to obstruction and hydronephrosis. Correlate with clinical findings and urinalysis for evidence of superimposed urinary tract infection. 5. Sigmoid diverticulosis without CT evidence of acute diverticulitis. No Leukocytosis, does not appear toxic at presentation (+) flank/abdominal pain; Dilaudid given in ED; caused nausea; Zofran administered. status post cystoscopy, left retrograde pyelogram, left ureteral stent placement 11/08/2023 by Abhijit Nassar MD Patient reports ongoing hematuria, H&H has been stable/minimally downtrended, patient denies any dizziness. Urology evaluated, pain medication for stent management. Outpatient follow-up with urology upon discharge. Will use 5-day course of antibiotic from 11/10 as ongoing hematuria [that has increased after stent placement and has not improved per pt]. Acute Kidney Injury: Cr uptrended to 1.87 today, will hold losartan, gentle ivf, bmp in AM. Nephro if w/ worsening renal fxn. Vitamin D deficiency: Vit D level of 10.4; given 41013 units vit D on 11/11; will need vit D supplement on DC. Atrial fibrillation: Chronic stable Diagnosed 2020; spontaneous conversion to NSR Takes Eliquis, sotalol; continue Hepatomegaly: Noted on CT, lft fairly wnl. Denies alcohol use f/u as OP w/ PCP for terminal manager monitoring. H/O Urolithiasis: Follows with Dr. Sanford [facility] Urinary incontinence and nocturia 6-7 times per night No surgery in the past Consideration discussed regarding starting oxybutynin c/w home vibegron. HTN: Chronic stable, c/w home losartan. HLD: Chronic stable, c/w home statin. Hypothyroidism: Chronic stable, c/w home levothyroxine. Disposition: PCP: Dr. Alan Code Status: Full Code VTE Prophylaxis: On Eliquis Admission and Anticipated Discharge Date Admission Date: November 08, 2023 Subjective Patient was seen and examined at bedside. Patient was lying in bed, on room air, resting comfortably, not in any acute distress. Pt denies headache, chest pain, palpitation or sob. Patient otherwise reports eating okay and moving bowels okay, continues to report bloody urine which has not increased but has stayed about the same since the day of stenting. Physical Exam Physical Exam: GENERAL: Alert and oriented x3. NAD, on RA. Morbidly obese. HEENT: No pallor, no icterus. Pupils equal, round and reactive to light. Oral mucosa moist. NECK: No JVD, no neck masses. HEART: S1 and S2 heard. Regular rate and rhythm. + murmur, no gallop. RESPIRATORY SYSTEM: Normal AP diameter. No accessory muscle use. No wheezing, no crackles. ABDOMEN: Soft, bowel sounds present, nontender, no distention. CENTRAL NERVOUS SYSTEM: No facial droop. Speech is clear. Obeys simple commands. Moves extremities. EXTREMITIES: 1+ ble edema, no erythema seen. Right knee bruise noted. No tenderness on bilateral knee exam. No bruise noted bilateral feet. Results & Data Results & Data Vital Signs (Past 12 Hours) Vital Signs Temp Pulse Pulse Resp BP Pulse Ox O2 Del Method 11/11/23 11:31 36.5 C 74 20 90/65 L 94 Room Air 11/11/23 08:15 60 11/11/23 07:51 36.5 C 53 L 20 90/44 L 98 Room Air 11/11/23 07:30 Room Air 11/11/23 04:00 36.6 C 63 18 115/70 93 Room Air
[2023-11-11] MEDS: SODIUM CHLORIDE 0.9% 1,000 ML IV SCH (16:09)
[2023-11-11] MEDS: cefTRIAXone SODIUM 2,000 MG in DEXTROSE 5 % MINI-B 50 ML IV SCH (16:09)
[2023-11-11] MEDS: GABAPENTIN 300 MG CAP PO SCH (20:01)
[2023-11-11] MEDS: DOCUSATE SODIUM 100 MG CAP PO SCH (20:01)
[2023-11-12] MEDS: SODIUM CHLORIDE 0.9% 1,000 ML IV SCH (04:50)
[2023-11-12] MEDS: LEVOTHYROXINE SODIUM 100 MCG TABLET PO SCH (04:51)
[2023-11-12] MEDS: DICLOFENAC SOD 1% GEL 100 GM TUBE EXT SCH ×4 (04:51→21:34)
[2023-11-12 07:24] LABS: Hematocrit (blood only) 29.6 % (37.0-47.0); Mean Corpuscular Hemoglobin 27.5 pg (25.0-34.0); Mean Corpuscular Hgb Conc 30.4 g/dL (32.0-36.0); Mean Corpuscular Volume 90.5 fL (80.0-100.0); Mean Platelet Volume 10.1 fL (9.4-12.4); Platelet Count 254 K/uL (130-400); RDW Coefficient of Variation 14.9 % (11.5-14.5); RDW Standard Deviation 49.4 fL (36.4-46.3); Red Blood Count 3.27 M/uL (4.20-5.40)
[2023-11-12 07:31] LABS: BUN Creatinine Ratio 24.5 (10-20); Calcium 8.3 mg/dl (8.6-10.3); Creatinine Clr Calc Pharmacy 41.4 ml/min; Est GFR (African American) 25.7 ml/min; Est GFR (Non-African American) 22.2 ml/min; Magnesium 2.2 mg/dl (1.7-2.4); Phosphorus 4.6 mg/dl (2.5-4.9); Potassium 4.3 mmol/L (3.5-5.1)
[2023-11-12] MEDS ORDERED: BUPIVACAINE 0.5 % 5 MG/1 ML MPF 30ML VIAL INFIL ONE ×2 (08:39→08:44)
[2023-11-12] MEDS ORDERED: TRIAMCINOLONE ACET 40 MG/ML VIAL IA ONE ×2 (08:39→08:44)
[2023-11-12] MEDS: SOTALOL HCL 80 MG TAB PO SCH ×2 (09:41→16:37)
[2023-11-12] MEDS: ATORVASTATIN 40 MG TAB PO SCH (09:42)
[2023-11-12] MEDS: DOCUSATE SODIUM 100 MG CAP PO SCH ×2 (09:42→21:34)
[2023-11-12] MEDS: VIBEGRON 75 MG TAB PO SCH (09:42)
--- NOTE | 2023-11-12 10:11 | Ultrasound Report ---
RENAL ULTRASOUND HISTORY: acute kidney injury COMPARISON: CT abdomen and pelvis 11/08/2023 FINDINGS: Right kidney: 9.1 cm. No hydronephrosis. Right-sided renal calculi are again noted measuring up to 8 mm. Mild diffuse cortical thinning. Left kidney: 11.8 cm. Persistent hydronephrosis. 1.4 cm calculus of the inferior pole left kidney. No rmal corticomedullary differentiation and cortical thickness. Bladder: The ureteral jets are not identified. Partial distention of the urinary bladder. Limited exam secondary to patient body habitus. Hepatic steatosis. IMPRESSION: 1. Limited exam secondary to patient body habitus. 2. Mild left-sided hydronephrosis again noted. 2. Bilateral nephrolithiasis. 3. Partial distention of the urinary bladder. ACT 112: Negative or not required by law. Electronically signed by: Harsh Olivarez M.D. 11/12/2023 10:10 AM
--- NOTE | 2023-11-12 13:11 | Orthopedic Progress Note ---
Date of Service November 12, 2023 Assessment & Plan (1) Osteoarthritis of knees, bilateral: I had a long and detailed discussion today with the patient about her bilateral knee pathology. She had ample amount of time to ask any questions or state any concerns. All questions and concerns were answered to the patient's satisfaction. At this time, she would like to proceed with intra-articular steroid injections to bilateral knees. Please see procedure note below. Postinjection instructions were given to the patient. She would like to follow- up with our orthopedic practice on an outpatient basis. She may follow-up with one of our joint guys upon discharge. At this point in time, she would not be a surgical candidate for total knee arthroplasty. Please [place] text or reach out to [facility] orthopedics if the patient situation is to change. Procedure: Left knee intra-articular steroid injection. The left knee was prepped using aseptic technique. Site was marked and prepped with Betadine and alcohol swabs. Injection of 40 mg of Kenalog and 5 cc of half percent Marcaine with epinephrine was administered using a 10 cc syringe with a 20-gauge spinal needle. A Band-Aid was placed over the injection site. She tolerated the procedure well and noted immediate relief. Procedure: Right knee intra-articular steroid injection. The right knee was prepped using aseptic technique. Site was marked and prepped with Betadine and alcohol swabs. Injection of 40 mg of Kenalog and 5 cc of half percent Marcaine with epinephrine was administered using a 10 cc syringe with a 20-gauge spinal needle. A Band-Aid was placed over the injection site. She tolerated the procedure well and noted immediate relief. Kiet Landon was seen and evaluated at bedside today resting comfortably in bed in no apparent distress. We are asked again by the hospitalist service about getting her to intra-articular knee joint injections to the right and left knee. She had a scheduled appointment today with an outpatient orthopedist in which she missed. She was scheduled to get steroid injections and she said if she missed this appointment, she could be a couple months of a wait for her to get back into the office. She notes pain to both knees diffusely throughout. She notes that her right knee was exacerbated after a recent fall. She has had steroid injections in the past and stated that they have gave her good relief. She denies any other concerns. Review of Systems All systems reviewed & are unremarkable except as noted in HPI & below. Physical Exam . On physical examination of bilateral knees, she has a very soft tissue envelope bilaterally. She has range of motion from about 5 to 90 degrees. She has pain diffusely throughout the bilateral knees. No laxity with valgus or varus stress. Less than 2-second capillary refill. Normal sensation. Neurovascular intact. Results & Data Results & Data Laboratory Results . Diagnostic Findings . X-rays of both knees show mild to moderate osteoarthritis without any evidence of fracture. PG Care Time/CCT Total # of Minutes Spent Total Time Spent with Patient: Total time spent is greater than 50% in coordination of care (as documented) at patient's floor/unit and/or counseling patient: Coding Level of Care Code 53189 SUB INP/OBS CARE MIN Diagnoses Primary osteoarthritis of both knees M17.0 Osteoarthritis type: primary (1) Osteoarthritis of knees, bilateral Osteoarthritis type: primary Qualified Code(s): M17.0 - Bilateral primary osteoarthritis of knee
--- NOTE | 2023-11-12 13:21 | Hospitalist Progress Note ---
Date of Service November 12, 2023 Assessment & Plan (1) Calculus of proximal left ureter: (2) Atrial fibrillation: (3) Hypothyroidism: (4) Obesity: (5) HLD (hyperlipidemia): Plan 63 year old female with a PMH of Atrial Fibrillation (On Eliquis), HDL, and Hypothyroidism that presents to the ED 11/08/23 with acute left flank pain. 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 She does follow with [facility] for urine incontinence and nocturia (6-7 x per night). Patient afebrile and does not appear systemic/does not appear toxic. Hypertensive in ED likely secondary to pain. She is being managed for the following: Calculus of proximal left ureter with hydronephrosis: Acute History of kidney stones; 10 years ago without surgical intervention Admitting abdomen/pelvis CT: 1. There is a 10 mm obstructing calculus in the left proximal ureter. This causes mild to moderate left-sided hydronephrosis. 2. Additional bilateral nonobstructing renal calculi as above. 3. There is heterogeneously diminished enhancement of the left kidney as compared to the right, likely related to obstruction and hydronephrosis. Correlate with clinical findings and urinalysis for evidence of superimposed urinary tract infection. 5. Sigmoid diverticulosis without CT evidence of acute diverticulitis. No Leukocytosis, does not appear toxic at presentation (+) flank/abdominal pain; Dilaudid given in ED; caused nausea; Zofran administered. status post cystoscopy, left retrograde pyelogram, left ureteral stent placement 11/08/2023 by Abhijit Nassar MD Patient reports ongoing hematuria, H&H has been minimally downtrending, patient denies any dizziness. Will hold eliquis, trend HnH closely. Urology evaluated, pain medication for stent management. Outpatient follow-up with urology upon discharge. Will use 5-day course of antibiotic from 11/10 as ongoing hematuria [that has in creased after stent placement and has not improved per pt]. Acute Kidney Injury: Cr uptrended to 1.87 11/11, further uptrended today despite holding losartan and initiating ivf. Will consult nephro. will obtain US renal. c/w ivf. labs in AM. Vitamin D deficiency: Vit D level of 10.4; given 56575 units vit D on 11/11; will need vit D supplement on DC. 50K U D2 weekly x 6 wks starting 11/17, then 800 units daily. Atrial fibrillation: Chronic stable Diagnosed 2020; spontaneous conversion to NSR Takes Eliquis, sotalol; continue as able b/l knee OA: s/p b/l knee injection 11/12. Appreciate orthopaedic's help. Hepatomegaly: Noted on CT, lft fairly wnl. 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 H/O Urolithiasis: Follows with Dr. Sanford [facility] Urinary incontinence and nocturia 6-7 times per night No surgery in the past Consideration discussed regarding starting oxybutynin c/w home vibegron. HTN: Chronic stable, c/w home losartan. HLD: Chronic stable, c/w home statin. Hypothyroidism: Chronic stable, c/w home levothyroxine. Disposition: PCP: Dr. Alan Code Status: Full Code VTE Prophylaxis: On [facility] Admission and Anticipated Discharge Date Admission Date: November 08, 2023 Subjective Patient was seen and examined at bedside. Patient was sitting up in bed, on room air, resting comfortably, not in any acute distress. Pt's boyfriend at bedside who was also updated on plan of care. Pt denies headache, chest pain, palpitation or sob. Patient otherwise reports eating okay and moving bowels okay, continues to report hematuria, not so much clearing up. Hb gradually dropping, will hold eliquis and trend HnH closely. Physical Exam Physical Exam: GENERAL: Alert and oriented x3. NAD, on RA. Morbidly obese. HEENT: No pallor, no icterus. Pupils equal, round and reactive to light. Oral mucosa moist. NECK: No JVD, no neck masses. HEART: S1 and S2 heard. Regular rate and rhythm. + murmur, no gallop. RESPIRATORY SYSTEM: Normal AP diameter. No accessory muscle use. No wheezing, no crackles. ABDOMEN: Soft, bowel sounds present, nontender, no distention. CENTRAL NERVOUS SYSTEM: No facial droop. Speech is clear. Obeys simple commands. Moves extremities. EXTREMITIES: 1+ ble edema, no erythema seen. Right knee bruise noted. No tenderness on bilateral knee exam. No bruise noted bilateral feet. Results & Data Results & Data Vital Signs (Past 12 Hours) Vital Signs Temp Pulse Pulse Resp BP Pulse Ox O2 Del Method 11/12/23 11:56 36.5 C 65 62 H 116/49 L 96 Room Air 11/12/23 08:23 36.7 C 59 L 20 110/52 L 94 Room Air 11/12/23 07:35 65 11/12/23 07:35 Room Air 11/12/23 04:00 36.5 C 63 18 118/62 94 Room Air
[2023-11-12 14:58] LABS: Hematocrit (blood only) 30.8 % (37.0-47.0); Hemoglobin 9.6 g/dl (12.0-16.0)
[2023-11-12] MEDS: cefTRIAXone SODIUM 2,000 MG in DEXTROSE 5 % MINI-B 50 ML IV SCH (15:07)
--- NOTE | 2023-11-12 17:04 | Nephrology Consultation ---
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 chemistries and volume status acceptable. no clear cause here > could be ischemic atn after relatively hypotension/ARB use; not entirely satisfactory explanation though; will check CK -daily bmp -strict I/O -repeat UACM -will check CK w/ AM labs -continue to hold losartan and hctz (2) Urolithiasis: s/p L ureteral stent and still w/ BL stones -recommend OP metabolic w/u History of Present Illness Reason for Consultation: worsening FLETCHER Requesting Physician: Dr Flanagan Attending Physician: Deedee Flanagan MD History of Present Illness 63 y/o F whom I'm asked to see for worsening FLETCHER was admitted 11/08 w/ L obstructing ureteral stone and 3 wks gross hematuria. PMH includes Atrial Fibrillation (On Eliquis), tachybrady syndrome, Hypothyroidism, class 3 obesity (BMI 69), HL; chronic urge incontinence; stones. On day of admission she underwent cystoscopy, left retrograde pyelogram, left ureteral stent placement with Dr. Nassar. She will need to undergo a second procedure for stone treatment in the future. ortho is following for BL knee OA and she has had steroid injections by them to knees this admission. Her baseline creatinine in 2022 is 0.8-0.9. Presented at 0.9; on 11/09 creat was up to 1.1; then on 11/11 (note missed day of labs) 1.9 and today 2.3. Urine cx from admission w/ gardnerella like bacteria. repeat renal imaging today showed ongoing mild L hydronephrosis and BL stones, none impacted. her 50 mg daily losartan was last given yesterday. Her OP HCTZ has been on hold since admission. She had 2L NS yesterday w/o improvement in her labs. some labile blood pressures since admission with initially marked HTN; yesterday w/ about 4 hrs SBP in 90s. HR generally wnl though did have soem readings in 100- 120s on presentation. endorses mild exertional dyspnea and ongoing mild R (sic) flank pain. no further L flank pain. feels gross hematuria is clearing a bit. no issues passing urine. has not really increased total amount she drinks (about 1.5-2L/day) but is drinking more water, less soda. moving bowels. no abd pain or n/v. fell a few days back (after admission) and bruised knees she tells me. no musculoskeletal pain currently Allergies Allergy/AdvReac Type Severity Reaction Status Date / Time lisinopril Allergy Intermediate RASH Verified 12/24/22 08:43 simvastatin Allergy Unknown UNKNOWN Verified 12/24/22 08:43 nickel Allergy itching Verified 12/24/22 08:43 baby oil Allergy Intermediate Rash Uncoded 12/24/22 08:43 Home Medications Medication Instructions Recorded Confirmed Type apixaban 5 mg tablet (Eliquis) 5 mg PO BID #60 tabs 10/23/21 11/08/23 Rx atorvastatin 20 mg tablet 40 mg PO QAM 10/23/21 11/08/23 History levothyroxine 100 mcg tablet 100 mcg PO QAM 10/23/21 11/08/23 History (Euthyrox) acetaminophen 650 mg 1,300 mg PO Q8H PRN Pain 05/15/22 11/08/23 History tablet,extended release alendronate 70 mg tablet 70 mg PO WK 05/15/22 11/08/23 History hydrochlorothiazide 25 mg tablet 25 mg PO QAM 05/16/22 11/08/23 History hydroxyzine HCl 25 mg tablet 25 - 50 mg (1 - 2 x 25 mg) PO Q6H 07/10/22 11/08/23 Rx PRN itching #20 tabs losartan 100 mg tablet 50 mg PO QAM 12/16/22 11/08/23 History nystatin 100,000 unit/gram topical 1 applic topical TID #15 grams 05/06/23 11/08/23 Rx powder mirabegron 50 mg tablet,extended 50 mg PO DAILY 11/08/23 11/08/23 History release 24 hr (Myrbetriq) sotalol 80 mg tablet 40 mg PO BID17 11/08/23 11/08/23 History valacyclovir 1 gram tablet See Rx Instructions .Route 11/08/23 11/08/23 History (Valtrex) .COMPLEX PRN Cold Sores cefdinir 300 mg capsule 300 mg PO BID 3 days #6 caps 11/11/23 Rx diclofenac sodium 1 % topical gel 4 g EXT Q6H PRN knee pain #100 11/11/23 Rx (Voltaren Arthritis Pain) grams gabapentin 300 mg capsule 300 mg PO HS #30 caps 11/11/23 Rx lactobacillus combination no.4 3 3,000 mmu cells PO DAILY 1 week #7 11/11/23 Rx billion cell capsule (Probiotic) caps miconazole nitrate 2 % topical 1 applic EXT BID PRN fungal 11/11/23 Rx powder (Desenex) infection #85 grams Patient History Medical History (Updated 11/12/23 @ 17:03 by Yaima Green MD, PhD) Urolithiasis Morbid obesity with BMI of 60.0-69.9, adult Frequent urination at night Pre-diabetes Neuropathy Atrial fibrillation on Eliquis Cardiac murmur Follows with Dr. 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 Beliefs That Will Affect Care: None Current Living Situation: Significant Other Current Living Situation Comment: Home with yandele How many Children do You have: 0 Feels Safe at Home: Yes Assistive Devices: Cane and Walker Review of Systems 2 Review of Systems: All systems reviewed & are unremarkable except as noted in HPI & below Physical Exam 2 Constitutional: well developed, well nourished, + morbidly obese and cooperative; no acute distress Eyes: EOM intact bilaterally ENMT: Ears: no external ear abnormality Nose: no external nose abnormality Mouth: + dry oral mucous membranes Neck: no nuchal rigidity Respiratory: normal respiratory effort and able to speak in complete sentences (but slightly dyspneic w/ speech); no labored breathing and expiratory phase not prolonged Auscultation: + diminished lung sounds Cardiovascular: Rate/Rhythm: regular rate and regular rhythm Extremities: + edema Gastrointestinal (Abdomen): Inspection/Auscultation: normal bowel sounds P ercussion/Palpation: abdomen soft; abdomen nontender Musculoskeletal: Extremities: strength 5/5 throughout Skin: no rashes, warm and dry large ecchymosis R knee Neurologic: yao, fluent speech, no tremor Psychiatric: Orientation: alert and oriented x 3 Results & Data Vital Signs (Past 12 Hours) Vital Signs Temp Pulse Pulse Resp BP Pulse Ox O2 Del Method 11/12/23 15:55 36.6 C 66 18 110/55 L 96 Room Air 11/12/23 15:36 67 11/12/23 11:56 36.5 C 65 62 H 116/49 L 96 Room Air 11/12/23 08:23 36.7 C 59 L 20 110/52 L 94 Room Air 11/12/23 07:35 65 11/12/23 07:35 Room Air Laboratory Results 11/12/23 14:40 11/12/23 06:[address] a/p admission 10 mm obstructing calculus in the left proximal ureter. This causes mild to moderate left-sided hydronephrosis. 2. Additional bilateral nonobstructing renal calculi as above. 3. There is heterogeneously diminished enhancement of the left kidney as compared to the right, likely related to obstruction and hydronephrosis. Correlate with clinical findings and urinalysis for evidence of superimposed urinary tract infection. 4. Hepatomegaly and hepatic steatosis. 5. Sigmoid diverticulosis without CT evidence of acute diverticulitis. renal u/s today Right kidney: 9.1 cm. No hydronephrosis. Right-sided renal calculi are again noted measuring up to 8 mm. Mild diffuse cortical thinning. Left kidney: 11.8 cm. Persistent hydronephrosis. 1.4 cm calculus of the inferior pole left kidney. Normal corticomedullary differentiation and cortical thickness. Bladder: The ureteral jets are not identified. Partial distention of the urinary bladder. Limited exam secondary to patient body habitus. Hepatic steatosis. IMPRESSION: 1. Limited exam secondary to patient body habitus. 2. Mild left-sided hydronephrosis again noted. 2. Bilateral nephrolithiasis. 3. Partial distention of the urinary bladder.
[2023-11-12] MEDS: GABAPENTIN 300 MG CAP PO SCH (21:34)
[2023-11-13] MEDS: LEVOTHYROXINE SODIUM 100 MCG TABLET PO SCH (06:05)
[2023-11-13] MEDS: DICLOFENAC SOD 1% GEL 100 GM TUBE EXT SCH ×2 (06:05→11:11)
[2023-11-13 07:14] LABS: Hematocrit (blood only) 29.4 % (37.0-47.0); Hemoglobin 9.3 g/dl (12.0-16.0)
[2023-11-13 07:46] LABS: BUN Creatinine Ratio 48.5 (10-20); Calcium 8.4 mg/dl (8.6-10.3); Creatinine Clr Calc Pharmacy 86.9 ml/min; Est GFR (African American) 67.5 ml/min; Est GFR (Non-African American) 58.2 ml/min; Potassium 4.2 mmol/L (3.5-5.1)
[2023-11-13] MEDS: DOCUSATE SODIUM 100 MG CAP PO SCH (07:47)
[2023-11-13] MEDS: SOTALOL HCL 80 MG TAB PO SCH (07:48)
[2023-11-13] MEDS: VIBEGRON 75 MG TAB PO SCH (07:48)
[2023-11-13] MEDS: ATORVASTATIN 40 MG TAB PO SCH (07:49)
[2023-11-13 11:09] LABS: Appearance Urine Cloudy (Clear); Bilirubin Urine Negative (Negative); Blood Urine 3+ (Negative); Color Urine Red; Glucose Urine UA Negative (Negative); Ketones Urine Negative (Negative); Leukocyte Esterase Urine Negative (Negative); Nitrite Urine Negative (Negative); Protein Urine 3+ (Negative); Urobilinogen Urine Negative (Negative); pH Urine 5.5 (4.5-7.5)
[2023-11-13 11:14] LABS: Bacteria Urine 2+ (Negative); RBC Urine >30 /hpf (0-4); Uric Acid Crystals Urine Present (None Prsent); WBC Urine >30 /hpf (0-5)
--- NOTE | 2023-11-13 12:25 | Discharge Summary ---
Date of Service November 13, 2023 Admission HPI Per Admitting Provider Ms. Cox is a 63 year old female with a PMH of Atrial Fibrillation (On Eliquis), HDL, and Hypothyroidism that presents to the ED today with acute left flank pain. She has been complaining of having hematuria for three weeks. She does follow with [facility] for urine incontinence and nocturia (6-7 x per night). Patient afebrile and does not appear systemic/does not appear toxic. Hypertensive in ED likely secondary to pain. She was given Dilaudid in the ED with some relief. Urology saw the patient and discussed acute stone management with cystoscopy and stent placement. Ureteral stents were discussed as well as postoperative issues and pain management. It will be necessary for her to undergo a second procedure for stone treatment in the future. Abdomen/Pelvis CT reveals There is a 10 mm obstructing calculus in the left proximal ureter. This causes mild to moderate left-sided hydronephrosis. 2. Additional bilateral nonobstructing renal calculi as above. 3. There is heterogeneously diminished enhancement of the left kidney as compared to the right, likely related to obstruction and hydronephrosis. Correlate with clinical findings and urinalysis for evidence of superimposed urinary tract infection. 4. Hepatomegaly and hepatic steatosis. 5. Sigmoid diverticulosis without CT evidence of acute diverticulitis. She was diagnosed with AF in 2020 and had a ZIO patch in 2021 with thirteen runs of SVT lasting up to seven seconds. There was discussion of pacemaker placement but patient was hesitant. Spoke with Urology; likely plan for stent placement this afternoon in the OR. For now, keep NPO (has not eaten anything today), and pain control. Urology will initiate preop abx. Patient cleared for surgery from a hospitalist perspective. Patient would like to proceed to OR today for cystoscopy, left retrograde pyelogram, left ureteral stent placement with Dr. Nassar. Patient will be admitted for further evaluation and management. Please see A/P for further details. Admission Exam Per Admitting Provider Neuro: AAOx4, PERRLA, no aphagia, memory changes, CNII-XII grossly intact (+) pain HEENT: head normocephalic, moist mucus membranes CV: S1/S2, (+) M (-) G/R, (+) generalized LE edema, cap refill < 3 seconds Resp: Lungs CTA in all redding. On RA GI: Abdomen S/NT/ND, Ax4 bowel sounds, (+) left CVA tenderness Musculoskeletal: 5/5 B/L UE strength, 5/5 B/L LE strength. Uses a walker at baseline d/t knee pain Skin: (-) rashes , (-) erythema. Psych: euthymic mood Principal Diagnosis Calculus of proximal left ureter with hydronephrosis Atrial fibrillation history Discharge Exam GENERAL: Alert and oriented x3. NAD, on RA. Morbidly obese. HEENT: No pallor, no icterus. Pupils equal, round and reactive to light. Oral mucosa moist. NECK: No JVD, no neck masses. HEART: S1 and S2 heard. Regular rate and rhythm. + murmur, no gallop. RESPIRATORY SYSTEM: Normal AP diameter. No accessory muscle use. No wheezing, no crackles. ABDOMEN: Soft, bowel sounds present, nontender, no distention. CENTRAL NERVOUS SYSTEM: No facial droop. Speech is clear. Obeys simple commands. Moves extremities. EXTREMITIES: 1+ ble edema, no erythema seen. Right knee bruise noted. No tenderness on bilateral knee exam. No bruise noted bilateral feet. Discharge Data Allergies Allergy/AdvReac Type Severity Reaction Status Date / Time lisinopril Allergy Intermediate RASH Verified 12/24/22 08:43 simvastatin Allergy Unknown UNKNOWN Verified 12/24/22 08:43 nickel Allergy itching Verified 12/24/22 08:43 baby oil Allergy Intermediate Rash Uncoded 12/24/22 08:43 Consultations 11/08/23 12:14 ED Decision to Admit Stat 11/08/23 12:24 Consult Urology Routine 11/10/23 14:47 Consult Orthopedic Surgery Routine 11/12/23 07:55 Consult Nephrology Routine Procedures Performed Operation Date: 11/08/23 08:50 Actual Procedures p Cystoscopy, Left Retrograde Pyelogram, Left Ureteral Stent Placement(Left) - Abhijit Nassar MD Ordered Studies 11/08/23 09:59 CT Abd and Pelvis [CT abd pelvis IV con only] Stat 11/08/23 13:50 FL retrograde includes kub Routine 11/12/23 08:01 US Renal Bladder [US renal/blad retro comp] Urgent Hospital Course (1) Calculus of proximal left ureter: (2) Atrial fibrillation: (3) Hypothyroidism: (4) Obesity: (5) HLD (hyperlipidemia): Plan 63 year old female with a PMH of Atrial Fibrillation (On Eliquis), HDL, and Hypothyroidism that presents to the ED 11/08/23 with acute left flank pain. She has been complaining of having hematuria for three weeks [employer]YWALL [employer]. She does follow with [facility] for urine incontinence and nocturia (6-7 x per night). Patient afebrile and does not appear systemic/does not appear toxic. Hypertensive in ED likely secondary to pain. She was managed for the following: Calculus of proximal left ureter with hydronephrosis: Acute History of kidney stones; 10 years ago without surgical intervention Admitting abdomen/pelvis CT: 1. There is a 10 mm obstructing calculus in the left proximal ureter. This causes mild to moderate left-sided hydronephrosis. 2. Additional bilateral nonobstructing renal calculi as above. 3. There is heterogeneously diminished enhancement of the left kidney as compared to the right, likely related to obstruction and hydronephrosis. Correlate with clinical findings and urinalysis for evidence of superimposed urinary tract infection. 5. Sigmoid diverticulosis without CT evidence of acute diverticulitis. No Leukocytosis, does not appear toxic at presentation (+) flank/abdominal pain; Dilaudid given in ED; caused nausea; Zofran administered. status post cystoscopy, left retrograde pyelogram, left ureteral stent placement 11/08/2023 by Abhijit Nassar MD Patient reports ongoing hematuria, H&H has been now stable, patient denies any dizziness. c/w home eliquis Urology evaluated, pain medication for stent management. Outpatient follow-up with urology upon discharge. Will use 5-day course of antibiotic from 11/10 as ongoing hematuria [that has increased after stent placement and has not improved per pt]. Acute Kidney Injury: Cr normalized; d/w nephro; resuming home HCTZ and losartan on DC. Vitamin D deficiency: Vit D level of 10.4; given 93655 units vit D on 11/11; will need vit D supplement on DC. 50K U D2 weekly x 6 wks starting 11/17, then 800 units daily. Atrial fibrillation: Chronic stable Diagnosed 2020; spontaneous conversion to NSR Takes Eliquis, sotalol; continue as able b/l knee OA: s/p b/l knee injection 11/12. Appreciate orthopaedic's help. Hepatomegaly: Noted on CT, lft fairly wnl. Denies alcohol use f/u as OP w/ PCP for detention monitoring. H/O Urolithiasis: Follows with Dr. Sanford [facility] [place] Urinary incontinence and nocturia 6-7 times per night No surgery in the past Consideration discussed regarding starting oxybutynin c/w home vibegron. HTN: Chronic stable, c/w home losartan. HLD: Chronic stable, c/w home statin. Hypothyroidism: Chronic stable, c/w home levothyroxine. Disposition: PCP: Dr. Alan Code Status: Full Code VTE Prophylaxis: On Eliquis Patient is being discharged to home with home health with following instruction at the point of discharge: Follow-up with your primary care physician within a week time and likely you will need labs CBC/CMP/magnesium/phosphorus. You recently got a stent placement for your left ureteral stone. Follow-up with urology in 1 to 2 weeks time upon discharge. Because you had continued hematuria, you are being treated in the line of UTI as well, complete the course of antibiotic as prescribed. Continue with home health therapy upon discharge. If increasing blood in the urine or chest pain/palpitations/lightheadedness/dizziness/shortness of breath then contact emergency and/or your urology office immediately. Vitamin D supplement is started. 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 Please make sure that you are able to get your medications today by calling your pharmacy before you leave the hospital so that your treatment continuity is not broken. Home Health Attestation I certify that this patient is under my care and that I, or a physicians under water assistant working with me, had a face to-face encounter that meets the home health [id number] encounter requirements with this patient. The encounter with the patient was in whole, or in part, for the following medical condition, which is the primary reason for home health care (list medical condition): hydronephrosis w/ stent placement; recent fall I certify that, based on my findings, the following services are medically necessary home health services: My clinical findings support the need for the above services because: Home Safety Assessment Medication Compliance OT Assess ADL Status and Restore Function w ADLs PT Assessment for Endurance / Balance / Strength PT Eval for Safety and Mobility PT Eval for Safety, Gait Training, Assistive Devices PT Gait and Balance Training, Strengthening and Safety Safety Skilled Nsg Assessment S/S to Report to Provider Teach on Disease Management and Interventions Vital Signs Further, I certify that my clinical findings support that this patient is homebound (i.e. absences from home require considerable and taxing effort and are for medical reasons or mandaen services or infrequently or of short duration when for other reasons) because: Transportation Assistance/Unable to Leave Home Unassisted Certification for Home Health Services: Based on the above findings, I certify that this patient is confined to the home and needs intermittent care home care, physical therapy and/or speech therapy or continues to need occupational therapy. The patient is under my care, and I have initiated the establishment of the plan of care. This patient will be followed by a physician who will periodically review the plan of care. Total Time Total Time Spent Total Time Spent (In Minutes): 45 Discharge Plan Discharge Items Patient Disposition: Home - Home Health Services Reason For Visit: KIDNEY STONE Discharge Diagnosis: Calculus of proximal left ureter with hydronephrosis Atrial fibrillation history Condition on Discharge: Fair Activity: Resume your previous activity Non-emergency contact: Primary Care Provider Call non-emergency contact if: you have any medication questions, your symptoms worsen and your temperature is above 101 Follow-up/Referrals: Rik Alan DO [Primary Care Provider] - (Date & Time 11/15/2023 1:40 PM Provider Rik Alan DO Department [facility] ) Abhijit Nassar MD [Physician] - (The Urology office will contact you for a follow up appointment.) Diet: Heart Healthy Addtl Attending Provider Instructions: Follow-up with your primary care physician within a week time and likely you will need labs CBC/CMP/magnesium/phosphorus. You recently got a stent placement for your left ureteral stone. Follow-up with urology in 1 to 2 weeks time upon discharge. Because you had continued hematuria, you are being treated in the line of UTI as well, complete the course of antibiotic as prescribed. Continue with home health therapy upon discharge. If increasing blood in the urine or chest pain/palpitations/lightheadedness/dizziness/shortness of breath then contact emergency and/or your urology office immediately. Vitamin D supplement is started. f/u with pcp office for detention monitoring. Please make sure that you are able to get your medications today by calling your pharmacy before you leave the hospital so that your treatment continuity is not broken. Pending Studies at Discharge: No Stand-Alone Forms: My [facility], Smoking Cessation Medications and DC Order Prescriptions: New diclofenac sodium [Voltaren Arthritis Pain] 1 % Gel 4 g EXT Q6H PRN (Reason: knee pain) Qty: 100 0RF gabapentin 300 mg Capsule 300 mg PO HS Qty: 30 0RF miconazole nitrate [Desenex] 2 % Powder 1 applic EXT BID PRN (Reason: fungal infection) Qty: 85 0RF cefdinir 300 mg capsule 300 mg PO BID 3 Days Qty: 6 0RF Probiotic 3 billion cell capsule 3,000 mmu cells PO DAILY 7 Days Qty: 7 0RF Rx Instructions: administer with a meal ergocalciferol (vitamin D2) [Vitamin D2] 1,250 mcg (50,000 unit) capsule 50,000 unit PO .weekly 42 Days Qty: 6 0RF Rx Instructions: Start taking vit D capsule 50K Units weekly from 11/17/2023. Continued atorvastatin 20 mg Tablet 40 mg PO QAM levothyroxine [Euthyrox] 100 mcg tablet 100 mcg PO QAM Eliquis 5 mg Tablet 5 mg PO BID Qty: 60 0RF alendronate 70 mg tablet 70 mg PO WK acetaminophen 650 mg Tablet Extended Release 1,300 mg PO Q8H PRN (Reason: Pain) hydrochlorothiazide 25 mg tablet 25 mg PO QAM hydroxyzine HCl 25 mg tablet 25 - 50 mg PO Q6H PRN (Reason: itching) Qty: 20 0RF losartan 100 mg tablet 50 mg PO QAM valacyclovir [Valtrex] 1 gram tablet See Rx Instructions .ROUTE .COMPLEX PRN (Reason: Cold Sores) Rx Instructions: as directed Myrbetriq 50 mg tablet extended release 24 hr 50 mg PO DAILY sotalol 80 mg tablet 40 mg PO [id number] Rx Instructions: half of tab am and pm Discontinued nystatin 100,000 unit/gram powder 1 applic topical TID Qty: 15 0RF Discharge Orders: Discharge Order (Routine); Ordered 11/13/23 Ordered By: Deedee Flanagan Admission Data Admit Date/Time: 11/08/23 12:24 Attending Provider: Deedee Flanagan [place] Provider: Nancy Mason Primary Care Provider: Rik Alan Other Providers: Nancy Mason; Arben Chowdhury; Jam Yung; [facility]; Yaima Green
[2023-11-13] MEDS ORDERED: LABETALOL HCL IV 5 MG/ML 20ML IV STA (14:21)
[2023-11-13] MEDS ORDERED: amLODIPine BESYLATE 5 MG TAB PO ONE (14:35)
== END 2023-11-13 17:23 | disposition home health service (06) | DRG 660 ==
LOC: ED 09:28 → SUATTDRO 12:24 → OR 12:45 → PACUINP 12:45 → SUATTDRO 12:46 → PACUINP 12:46 → 2N 17:51

== ENCOUNTER 2023-12-05 10:08 | Inpatient (IN) ==
--- NOTE | 2023-12-05 10:15 | Emergency Department Note ---
Impression & Plan COVID-19, Atrial fibrillation with rapid ventricular response, Hypoxia, Renal colic, Renal insufficiency ED Provider Note NAME: VJ NORRIS AGE: 63 SEX: F ARRIVES VIA: Ambulance INFORMANT: Patient ED PROVIDER(S): John Rao MD CHIEF COMPLAINT: Right flank pain. PLAN: Disposition: Admit MEDICAL DECISION MAKING: The patient is a pleasant 63-year-old woman with a past medical history of atrial fibrillation on Eliquis and sotalol, hypertension, hyperlipidemia, nephrolithiasis with recent left ureteral stent still present who presents to the emergency department via EMS for acute onset right lower abdominal pain which was consistent with her kidney stone pain and so presents for evaluation. The patient arrives in the setting of being seen in this emergency department yesterday evening around 10 PM for generalized weakness and near syncope with ultimate diagnosis of COVID-[address] imaging including CT of the head and abdomen pelvis as well as chest x-ray. The patient reports she did take her sotalol as usual yesterday but had yet to take it this morning due to feeling unwell. She did receive analgesia and antiemetics by EMS prior to arrival and reports her pain has resolved and has not returned. She admits that she did not sleep much last night at all as she did not leave our facility until around 5 AM and then when she returned home had severe pain. She denies chest pain or shortness of breath at this time. On my evaluation the patient is uncomfortable in no distress, afebrile with heart rate in the 150s-160s in atrial fibrillation and vital signs otherwise stable. O2 saturation was noted to range from 85-89% on room air and so was placed on 3 L nasal cannula. She appears clinically dry. Abdomen is benign. EKG demonstrates atrial fibrillation with RVR without overt acute ischemia. Chest x-ray is negative for acute cardiopulmonary process and is similar to prior. WBC and platelets within normal limits. H/H 9.6/31, similar to prior. Chemistry without metabolic acidosis. Creatinine 1.6, within prior range of values but increased from last night. Electrolytes without significant abnormality. High-sensitivity troponin 54.3, nonspecific in the setting of the patient's A-fib with RVR. Lipase is not elevated. TSH is elevated at 5.3 with free T4 pending. Given the patient's right flank/abdominal pain has resolved and has not recurred and over [address] hours will defer repeat CT scan at this time as CT was performed last night around 10 PM. However, given the patient's uncontrolled atrial fibrillation with RVR which is suspected to have been provoked by her COVID-19 infection the patient does agree with plan for admission for further management. Patient did receive 5 mg of IV Lopressor x 3 with gradual improved rate to the 110s-120s. Her home sotalol was also provided. Given patient's hypoxia in the setting of COVID-19 she was also provided with dexamethasone. Beta agonist deferred at this time due to A-fib with RVR. Case was discussed with [facility] PAC, with Franklyn Mason hospitalist who will evaluate the patient for admission. Triage Nursing notes reviewed and agree them. Prior/external medical records reviewed Vital Signs: reviewed Differential diagnosis: Renal colic, UTI, appendicitis, diverticulitis, mesenteric ischemia, aortic pathology, infections, inflammatory bowel disease, PUD, biliary pathology, as well as other pathologies. ER treatment provided: See below. Diagnostics interpreted by me: ECG: Atrial fibrillation with RVR, 143 bpm, PVC, no overt ST elevation or depression, QTc 469, QRS 78. Cardiac Monitoring: An order for continuous cardiac monitoring was placed and demonstrated Atrial fibrillation with RVR, 143 bpm, PVC. Laboratory studies: See below Imaging studies: See below Consultation(s): [facility], with Franklyn Mason hospitalist who will evaluate the patient for admission. HPI: The patient is a pleasant 63-year-old woman with a past medical history of atrial fibrillation on Eliquis and sotalol, hypertension, hyperlipidemia, nephrolithiasis with recent left ureteral stent still present who presents to the emergency department via EMS for acute onset right lower abdominal pain which was consistent with her kidney stone pain and so presents for evaluation. The patient arrives in the setting of being seen in this emergency department yesterday evening around 10 PM for generalized weakness and near syncope with ultimate diagnosis of COVID-[address] imaging including CT of the head and abdomen pelvis as well as chest x-ray. The patient reports she did take her sotalol as usual yesterday but had yet to take it this morning due to feeling unwell. She did receive analgesia and antiemetics by EMS prior to arrival and reports her pain has resolved and has not returned. She admits that she did not sleep much last night at all as she did not leave our facility until around 5 AM and then when she returned home had severe pain. She denies chest pain or shortness of breath at this time. ROS: See above HPI for pertinent positives & negatives. A total of 10 systems reviewed and were otherwise negative. VITALS:See Below PHYSICAL EXAMINATION: GENERAL: Awake, alert, fatigued-appearing, in no distress, BMI 67.5. HENT: Normocephalic, atraumatic. Oropharynx with dry mucous membranes and otherwise unremarkable. EYES: Normal conjunctiva. Sclera non-icteric. NECK: Supple. No nuchal rigidity. FROM. No JVD. RESPIRATORY: Clear to auscultation. CARDIAC: Tachycardic rate, irregular rhythm. Extremities warm and well perfused. Pulses equal. ABDOMEN: Soft, non-distended. No tenderness to palpation. No rebound or guarding. No masses. RECTAL: Deferred. MUSCULOSKELETAL: Chest examination reveals no tenderness. The back is symmetrical on inspection without obvious abnormality. There is no CVA tenderness to palpation. No joint edema. LOWER EXTREMITIES: Calves are equal size bilaterally and non-tender. No edema. No discoloration. NEURO: Normal sensorium. No sensory or motor deficits noted. SKIN: No rash or jaundice noted. ED COURSE: Critical Care: I have personally spent greater than 35 minutes of critical care time in the direct management of this patient. This includes bedside care, interpretation of diagnostic studies, and testing, discussion with consultants, patient, and family members, and other required patient management activities. This 35 minutes is in excess of all separately billable procedures. John Rao MD Past Med/Surg History Medical History Urolithiasis Morbid obesity with BMI of 60.0-69.9, adult Frequent urination at night Pre-diabetes Neuropathy Atrial fibrillation on Eliquis Cardiac murmur Follows with Dr. Olga Lidia BARRAZA (hyperlipidemia) Osteoporosis Hypothyroidism Tachycardia-bradycardia syndrome Hypertension Surgical History History of wisdom tooth extraction History of hip surgery BL Family History Other No family history of adverse response to anesthesia Social History Smoking Status: Former smoker Second Hand Exposure: No; Do You Dip or Chew Tobacco: No; Tobacco Cessation Education Requested by Patient: No Hx Alcohol Use: Yes Alcohol type: other Hx Substance Use: No Preferred Language: [place] Communication Ability: Effective Client Development Director Required: No Beliefs That Will Affect Care: None Current Living Situation: Significant Other Current Living Situation Comment: Home with Ann Marie How many Children do You have: 0 Other Information That Helps Us Care for You: No Feels Safe at Home: Yes Safety Concerns: Feels Safe At This Time Assistive Devices: Denture - Upper, Denture - Lower and Walker Allergies Allergies Allergy/AdvReac Type Severity Reaction Status Date / Time lisinopril Allergy Intermediate Cough Verified 12/05/23 12:35 nickel Allergy itching Verified 12/24/22 08:43 simvastatin AdvReac Unknown Muscle Pain Verified 12/05/23 12:35 baby oil Allergy Intermediate Rash Uncoded 12/24/22 08:43 Home Meds Home Medications Medication Instructions Recorded Confirmed levothyroxine 100 mcg tablet 100 mcg PO QAM 10/23/21 12/05/23 (Euthyrox) alendronate 70 mg tablet 70 mg PO WK 05/15/22 12/05/23 hydrochlorothiazide 25 mg tablet 25 mg PO QAM 05/16/22 12/05/23 sotalol 80 mg tablet 40 mg PO BID17 11/08/23 12/05/23 valacyclovir 1 gram tablet See Rx Instructions .Route 11/08/23 12/05/23 (Valtrex) .COMPLEX PRN Cold Sores atorvastatin 40 mg tablet 40 mg PO DAILY 12/05/23 12/05/23 losartan 50 mg tablet 50 mg PO DAILY 12/05/23 12/05/23 Previous Rx's Medication Instructions Recorded apixaban 5 mg tablet (Eliquis) 5 mg PO BID #60 tabs 10/23/21 hydroxyzine HCl 25 mg tablet 25 - 50 mg (1 - 2 x 25 mg) PO Q6H 07/10/22 PRN itching #20 tabs diclofenac sodium 1 % topical gel 4 g EXT Q6H PRN knee pain #100 11/11/23 (Voltaren Arthritis Pain) grams gabapentin 300 mg capsule 300 mg PO HS #30 caps 11/11/23 miconazole nitrate 2 % topical 1 applic EXT BID PRN fungal 11/11/23 powder (Desenex) infection #85 grams ergocalciferol (vitamin D2) 1,250 50,000 unit PO .weekly 6 weeks #6 11/13/23 mcg (50,000 unit) capsule (Vitamin caps D2) benzonatate 100 mg capsule 100 mg PO TID PRN cough #20 caps 12/05/23 nirmatrelvir 300 mg (150 mg See Rx Instructions PO .COMPLEX 12/05/23 x2)-ritonavir 100 mg tablet,dose #30 tabs pack (Paxlovid) Results & Data (ED) Vital Signs Vital Signs - 24 hr 12/05/23 10:15 12/05/23 10:16 12/05/23 10:19 Temperature Temperature Source Pulse Rate 147 H 147 H 155 H Pulse Rate [Apical] Pulse Rate from SpO2 Sensor 76 Respiratory Rate 19 22 Respiratory Effort / Characteristics Respiratory Depth Respiratory Pattern Blood Pressure Blood Pressure [Right Arm] Blood Pressure Mean Blood Pressure Mean [Right Arm] Blood Pressure Position Blood Pressure Position [Right Arm] Pulse Oximetry 90 Oxygen Delivery Method Oxygen Flow Rate Sepsis Recent Fever Within 48 Hours Sepsis New/Unexplained Change in Mental Status Sepsis Action Taken by Nursing 12/05/23 10:19 12/05/23 10:20 12/05/23 10:21 Temperature Temperature Source Pulse Rate 149 H Pulse Rate [Apical] Pulse Rate from SpO2 Sensor 90 Respiratory Rate 14 Respiratory Effort / Characteristics Short of Breath Respiratory Depth Respiratory Pattern Blood Pressure 111/71 Blood Pressure [Right Arm] Blood Pressure Mean 91 Blood Pressure Mean [Right Arm] Blood Pressure Position Blood Pressure Position [Right Arm] Pulse Oximetry 89 L Oxygen Delivery Method Oxygen Flow Rate Sepsis Recent Fever Within 48 Hours Sepsis New/Unexplained Change in Mental Status Sepsis Action Taken by Nursing 12/05/23 10:25 12/05/23 10:29 12/05/23 10:30 Temperature Temperature Source Pulse Rate 128 H 150 H 134 H Pulse Rate [Apical] Pulse Rate from SpO2 Sensor 86 102 H Respiratory Rate 14 20 17 Respiratory Effort / Characteristics Non-Labored Spontaneous Short of Breath Respiratory Depth Normal Respiratory Pattern Regular Blood Pressure 111/71 Blood Pressure [Right Arm] Blood Pressure Mean 84 Blood Pressure Mean [Right Arm] Blood Pressure Position Lying Blood Pressure Position [Right Arm] Pulse Oximetry 92 89 L 89 L Oxygen Delivery Method Room Air Oxygen Flow Rate Sepsis Recent Fever Within 48 Hours No Sepsis New/Unexplained Change in Mental Status No Sepsis Action Taken by Nursing No Action Required 12/05/23 10:32 12/05/23 10:32 12/05/23 10:32 Temperature 36.8 C Temperature Source Oral Pulse Rate 157 H Pulse Rate [Apical] 150 H Pulse Rate from SpO2 Sensor Respiratory Rate 20 20 Respiratory Effort / Characteristics Non-Labored Spontaneous Short of Breath Respiratory Depth Normal Respiratory Pattern Regular Blood Pressure Blood Pressure [Right Arm] 111/71 Blood Pressure Mean Blood Pressure Mean [Right Arm] 84 Blood Pressure Position Blood Pressure Position [Right Arm] Lying Pulse Oximetry 93 90 91 Oxygen Delivery Method Room Air Room Air Room Air Oxygen Flow Rate Sepsis Recent Fever Within 48 Hours Sepsis New/Unexplained Change in Mental Status Sepsis Action Taken by Nursing 12/05/23 10:35 12/05/23 10:40 12/05/23 10:45 Temperature Temperature Source Pulse Rate 155 H 122 H 117 H Pulse Rate [Apical] Pulse Rate from SpO2 Sensor 73 89 83 Respiratory Rate 21 19 21 Respiratory Effort / Characteristics Respiratory Depth Respiratory Pattern Blood Pressure Blood Pressure [Right Arm] Blood Pressure Mean Blood Pressure Mean [Right Arm] Blood Pressure Position Blood Pressure Position [Right Arm] Pulse Oximetry 90 92 92 Oxygen Delivery Method Oxygen Flow Rate Sepsis Recent Fever Within 48 Hours Sepsis New/Unexplained Change in Mental Status Sepsis Action Taken by Nursing 12/05/23 10:48 12/05/23 10:48 12/05/23 10:50 Temperature Temperature Source Pulse Rate 138 H 146 H Pulse Rate [Apical] Pulse Rate from SpO2 Sensor 90 75 Respiratory Rate 18 20 Respiratory Effort / Characteristics Respiratory Depth Respiratory Pattern Blood Pressure 142/97 H Blood Pressure [Right Arm] Blood Pressure Mean 112 Blood Pressure Mean [Right Arm] Blood Pressure Position Blood Pressure Position [Right Arm] Pulse Oximetry 86 L 84 L Oxygen Delivery Method Oxygen Flow Rate Sepsis Recent Fever Within 48 Hours Sepsis New/Unexplained Change in Mental Status Sepsis Action Taken by Nursing 12/05/23 10:55 12/05/23 11:00 12/05/23 11:02 Temperature Temperature Source Pulse Rate 131 H 157 H 155 H Pulse Rate [Apical] Pulse Rate from SpO2 Sensor 76 Respiratory Rate 20 22 Respiratory Effort / Characteristics Respiratory Depth Respiratory Pattern Blood Pressure 170/83 H Blood Pressure [Right Arm] Blood Pressure Mean Blood Pressure Mean [Right Arm] Blood Pressure Position Blood Pressure Position [Right Arm] Pulse Oximetry 89 L Oxygen Delivery Method Oxygen Flow Rate Sepsis Recent Fever Within 48 Hours Sepsis New/Unexplained Change in Mental Status Sepsis Action Taken by Nursing 12/05/23 11:04 12/05/23 11:04 12/05/23 11:05 Temperature Temperature Source Pulse Rate 156 H 148 H Pulse Rate [Apical] Pulse Rate from SpO2 Sensor 90 81 Respiratory Rate 19 25 H Respiratory Effort / Characteristics Respiratory Depth Respiratory Pattern Blood Pressure 170/83 H Blood Pressure [Right Arm] Blood Pressure Mean 90 Blood Pressure Mean [Right Arm] Blood Pressure Position Blood Pressure Position [Right Arm] Pulse Oximetry 91 89 L Oxygen Delivery Method Oxygen Flow Rate Sepsis Recent Fever Within 48 Hours Sepsis New/Unexplained Change in Mental Status Sepsis Action Taken by Nursing 12/05/23 11:10 12/05/23 11:11 12/05/23 11:11 Temperature Temperature Source Pulse Rate 146 H Pulse Rate [Apical] Pulse Rate from SpO2 Sensor 75 Respiratory Rate 23 Respiratory Effort / Characteristics Respiratory Depth Respiratory Pattern Blood Pressure Blood Pressure [Right Arm] Blood Pressure Mean Blood Pressure Mean [Right Arm] Blood Pressure Position Blood Pressure Position [Right Arm] Pulse Oximetry 99 85 L 95 Oxygen Delivery Method Room Air Nasal Cannula Oxygen Flow Rate 3 Sepsis Recent Fever Within 48 Hours Sepsis New/Unexplained Change in Mental Status Sepsis Action Taken by Nursing 12/05/23 11:11 12/05/23 11:11 12/05/23 11:15 Temperature Temperature Source Pulse Rate 144 H 160 H Pulse Rate [Apical] Pulse Rate from SpO2 Sensor 80 69 Respiratory Rate 20 22 Respiratory Effort / Characteristics Respiratory Depth Respiratory Pattern Blood Pressure 124/77 Blood Pressure [Right Arm] Blood Pressure Mean 89 Blood Pressure Mean [Right Arm] Blood Pressure Position Blood Pressure Position [Right Arm] Pulse Oximetry 99 98 Oxygen Delivery Method Oxygen Flow Rate Sepsis Recent Fever Within 48 Hours Sepsis New/Unexplained Change in Mental Status Sepsis Action Taken by Nursing 12/05/23 11:16 12/05/23 11:20 12/05/23 11:21 Temperature Temperature Source Pulse Rate 152 H 149 H 122 H Pulse Rate [Apical] Pulse Rate from SpO2 Sensor 76 61 88 Respiratory Rate 22 17 17 Respiratory Effort / Characteristics Respiratory Depth Respiratory Pattern Blood Pressure 108/78 131/70 Blood Pressure [Right Arm] Blood Pressure Mean 88 90 Blood Pressure Mean [Right Arm] Blood Pressure Position Blood Pressure Position [Right Arm] Pulse Oximetry 98 99 99 Oxygen Delivery Method Oxygen Flow Rate Sepsis Recent Fever Within 48 Hours Sepsis New/Unexplained Change in Mental Status Sepsis Action Taken by Nursing 12/05/23 11:22 12/05/23 11:23 12/05/23 11:25 Temperature Temperature Source Pulse Rate 120 H 148 H 109 H Pulse Rate [Apical] Pulse Rate from SpO2 Sensor 69 Respiratory Rate 18 Respiratory Effort / Characteristics Respiratory Depth Respiratory Pattern Blood Pressure 131/70 131/70 Blood Pressure [Right Arm] Blood Pressure Mean Blood Pressure Mean [Right Arm] Blood Pressure Position Blood Pressure Position [Right Arm] Pulse Oximetry 99 Oxygen Delivery Method Oxygen Flow Rate Sepsis Recent Fever Within 48 Hours Sepsis New/Unexplained Change in Mental Status Sepsis Action Taken by Nursing 12/05/23 11:26 12/05/23 11:31 12/05/23 11:36 Temperature Temperature Source Pulse Rate 143 H 125 H 130 H Pulse Rate [Apical] Pulse Rate from SpO2 Sensor 76 78 70 Respiratory Rate 18 19 19 Respiratory Effort / Characteristics Respiratory Depth Respiratory Pattern Blood Pressure 117/67 112/63 122/61 Blood Pressure [Right Arm] Blood Pressure Mean 83 79 81 Blood Pressure Mean [Right Arm] Blood Pressure Position Blood Pressure Position [Right Arm] Pulse Oximetry 99 99 99 Oxygen Delivery Method Oxygen Flow Rate Sepsis Recent Fever Within 48 Hours Sepsis New/Unexplained Change in Mental Status Sepsis Action Taken by Nursing 12/05/23 11:41 12/05/23 11:53 12/05/23 11:53 Temperature Temperature Source Pulse Rate 127 H 133 H 118 H Pulse Rate [Apical] Pulse Rate from SpO2 Sensor 82 77 Respiratory Rate 17 16 Respiratory Effort / Characteristics Respiratory Depth Respiratory Pattern Blood Pressure 94/58 L 125/87 125/87 Blood Pressure [Right Arm] Blood Pressure Mean 70 99 Blood Pressure Mean [Right Arm] Blood Pressure Position Blood Pressure Position [Right Arm] Pulse Oximetry 99 98 Oxygen Delivery Method Oxygen Flow Rate Sepsis Recent Fever Within 48 Hours Sepsis New/Unexplained Change in Mental Status Sepsis Action Taken by Nursing 12/05/23 11:56 12/05/23 12:00 12/05/23 12:06 Temperature Temperature Source Pulse Rate 139 H 136 H 138 H Pulse Rate [Apical] Pulse Rate from SpO2 Sensor 70 70 88 Respiratory Rate 18 18 22 Respiratory Effort / Characteristics Respiratory Depth Respiratory Pattern Blood Pressure 133/105 H 120/66 140/91 Blood Pressure [Right Arm] Blood Pressure Mean 114 84 107 Blood Pressure Mean [Right Arm] Blood Pressure Position Blood Pressure Position [Right Arm] Pulse Oximetry 99 97 99 Oxygen Delivery Method Oxygen Flow Rate Sepsis Recent Fever Within 48 Hours Sepsis New/Unexplained Change in Mental Status Sepsis Action Taken by Nursing 12/05/23 12:10 12/05/23 12:12 12/05/23 12:15 Temperature Temperature Source Pulse Rate 133 H 135 H 151 H Pulse Rate [Apical] Pulse Rate from SpO2 Sensor 80 75 Respiratory Rate 20 21 Respiratory Effort / Characteristics Respiratory Depth Respiratory Pattern Blood Pressure 140/91 116/75 Blood Pressure [Right Arm] Blood Pressure Mean 88 Blood Pressure Mean [Right Arm] Blood Pressure Position Blood Pressure Position [Right Arm] Pulse Oximetry 98 97 Oxygen Delivery Method Oxygen Flow Rate Sepsis Recent Fever Within 48 Hours Sepsis New/Unexplained Change in Mental Status Sepsis Action Taken by Nursing 12/05/23 12:16 12/05/23 12:16 12/05/23 12:30 Temperature Temperature Source Pulse Rate 142 H 114 H Pulse Rate [Apical] Pulse Rate from SpO2 Sensor 53 L 84 Respiratory Rate 22 17 Respiratory Effort / Characteristics Respiratory Depth Respiratory Pattern Blood Pressure 132/82 Blood Pressure [Right Arm] Blood Pressure Mean 103 Blood Pressure Mean [Right Arm] Blood Pressure Position Blood Pressure Position [Right Arm] Pulse Oximetry 97 94 Oxygen Delivery Method Oxygen Flow Rate Sepsis Recent Fever Within 48 Hours Sepsis New/Unexplained Change in Mental Status Sepsis Action Taken by Nursing 12/05/23 12:37 12/05/23 12:37 12/05/23 12:45 Temperature Temperature Source Pulse Rate 128 H 115 H Pulse Rate [Apical] Pulse Rate from SpO2 Sensor 85 77 Respiratory Rate 18 23 Respiratory Effort / Characteristics Respiratory Depth Respiratory Pattern Blood Pressure 137/70 Blood Pressure [Right Arm] Blood Pressure Mean 97 Blood Pressure Mean [Right Arm] Blood Pressure Position Blood Pressure Position [Right Arm] Pulse Oximetry 91 90 Oxygen Delivery Method Room Air Oxygen Flow Rate Sepsis Recent Fever Within 48 Hours Sepsis New/Unexplained Change in Mental Status Sepsis Action Taken by Nursing 12/05/23 13:00 12/05/23 13:00 12/05/23 13:15 Temperature Temperature Source Pulse Rate 123 H 128 H Pulse Rate [Apical] Pulse Rate from SpO2 Sensor 85 80 Respiratory Rate 21 14 Respiratory Effort / Characteristics Respiratory Depth Respiratory Pattern Blood Pressure 124/62 Blood Pressure [Right Arm] Blood Pressure Mean 81 Blood Pressure Mean [Right Arm] Blood Pressure Position Blood Pressure Position [Right Arm] Pulse Oximetry 95 94 Oxygen Delivery Method Room Air Room Air Oxygen Flow Rate Sepsis Recent Fever Within 48 Hours Sepsis New/Unexplained Change in Mental Status Sepsis Action Taken by Nursing Laboratory Data Attestation: I reviewed the patient's lab results. 12/05/23 10:34 12/05/23 10:34 Lab Results 12/05/23 12/05/23 Range/Units 10:34 12:38 WBC 8.03 (4.8-10.8) K/ul RBC 3.50 L (4.20-5.40) M/uL Hgb 9.6 L (12.0-16.0) g/dl Hct 31.0 L (37.0-47.0) % MCV 88.6 (80.0-100.0) fL MCH 27.4 (25.0-34.0) pg MCHC 31.0 L (32.0-36.0) g/dL RDW Std Deviation 49.6 H (36.4-46.3) fL RDW Coeff of Johnny 15.4 H (11.5-14.5) % Plt Count 251 (130-400) K/uL MPV 9.7 (9.4-12.4) fL Immature Gran % (Auto) 0.6 % Neut % (Auto) 68.4 % Lymph % (Auto) 18.3 % Kimball % (Auto) 9.1 % Eos % (Auto) 3.2 % Baso % (Auto) 0.4 % Neut # (Auto) 5.49 (1.40-6.50) K/uL Lymph # (Auto) 1.47 (1.20-3.40) K/uL Kimball # (Auto) 0.73 H (0.11-0.59) K/uL Eos # (Auto) 0.26 (0.00-0.50) K/uL Baso # (Auto) 0.03 (0.00-0.20) K/uL Immature Gran # (Auto) 0.05 (0.01-0.20) K/uL Sodium 136 (136-145) mmol/L Potassium 3.8 (3.5-5.1) mmol/L Chloride 103 (98-107) mmol/L Carbon Dioxide 22 (21-32) mmol/L Anion Gap 11 (3-11) BUN 24 H (6-23) mg/dl Creatinine 1.60 H D (0.6-1.2) mg/dl Est Cr Clr Drug Dosing 57.9 ml/min Est GFR ( Amer) 39.6 ml/min Est GFR (Non-Af Amer) 34.2 ml/min BUN/Creatinine Ratio 15.0 (10-20) Glucose 134 H (70-99(Fasting)) mg/dl Calcium 8.0 L (8.6-10.3) mg/dl Phosphorus 3.7 (2.5-4.9) mg/dl Magnesium 2.0 (1.7-2.4) mg/dl Total Bilirubin 0.8 (0.2-1.0) mg/dl AST 30 (13-39) U/L ALT 20 (7-52) U/L Alkaline Phosphatase 46 (34-104) U/L Troponin I High Sens 54.3 H* 51.7 H* (0-14) pg/ml Total Protein 6.6 (6.0-8.3) gm/dl Albumin 3.6 (3.4-5.0) gm/dl Globulin 3.0 (2.5-4.0) gm/dl Albumin/Globulin Ratio 1.2 (0.9-2) Lipase 9 L (11-82) U/L TSH 5.953 H (0.300-4.500) uIu/ml Free T4 0.98 (0.61-1.60) ng/dl Administered Medications Apixaban (Apixaban 5 Mg Tablet) 5 mg PO BID [facility] Stop: 01/04/24 20:59 Last Admin: 12/05/23 20:40 Dose: 5 mg Documented By: KRT Gabapentin (Gabapentin 300 Mg Cap) 300 mg PO HS BALJEET Stop: 01/04/24 20:59 Last Admin: 12/05/23 20:40 Dose: 300 mg Documented By: KRT Guaifenesin (Guaifenesin 600 Mg Tabcr) 1,200 mg PO Q12 BALJEET Stop: 01/04/24 20:59 Last Admin: 12/05/23 20:40 Dose: 1,200 mg Documented By: KRT Diltiazem HCl 125 mg/ Dextrose 125 mls @ 10 mls/hr IV .[id number] [facility]; Protocol Stop: 01/04/24 13:44 Last Titration: 12/05/23 21:15 Dose: 10 mg/hr, 10 mls/hr Documented By: KIRSTIE Co-signed By: JF Admin: 12/05/23 14:04 Dose: 5 mg/hr, 5 mls/hr Documented By: AM Co-signed By: BOBBY Sodium Chloride (Nss) 1,000 mls @ 80 mls/hr IV .[id number] BALJEET Stop: 12/06/23 15:19 Last Admin: 12/05/23 20:41 Dose: 80 mls/hr Documented By: KRT Morphine Sulfate (Morphine Sulfate 4 Mg/Ml 1 Ml Carp\Vial) 3 mg IV Q4H PRN PRN Reason: Severe Pain (Scale 7, 8, 9,10) Stop: 12/07/23 14:19 Last Admin: 12/05/23 20:34 Dose: 3 mg Documented By: KRT Discontinued Medications Apixaban (Apixaban 5 Mg Tablet) 5 mg PO ONE ONE Stop: 12/05/23 13:19 Last Admin: 12/05/23 14:04 Dose: 5 mg Documented By: AM Dexamethasone Sodium Phosphate (DexamethasonePf 10 Mg/Ml Vial) 6 mg IV NOW ONE Stop: 12/05/23 12:02 Last Admin: 12/05/23 12:12 Dose: 6 mg Documented By: CPB Sodium Chloride (Nss) 1,000 mls @ 999 mls/hr IV .Q1H1M ONE Stop: 12/05/23 11:19 Last Infusion: 12/05/23 14:43 Dose: Infused Documented By: Infusion: 12/05/23 11:57 Dose: 0 mls/hr Documented By: Admin: 12/05/23 10:25 Dose: 999 mls/hr Documented By: SADIE Sodium Chloride (Nss) 500 mls @ 999 mls/hr IV .Q31M ONE Stop: 12/05/23 11:23 Last Infusion: 12/05/23 11:57 Dose: Infused Documented By: Admin: 12/05/23 11:05 Dose: 999 mls/hr Documented By: CPB Metoprolol Tartrate (Metoprolol Tartrate 1 Mg/Ml Vial) 5 mg IV NOW STA Stop: 12/05/23 10:54 Last Admin: 12/05/23 11:02 Dose: 5 mg Documented By: CPB Metoprolol Tartrate (Metoprolol Tartrate 1 Mg/Ml Vial) 5 mg IV NOW STA Stop: 12/05/23 11:18 Last Admin: 12/05/23 11:22 Dose: 5 mg Documented By: CPB Metoprolol Tartrate (Metoprolol Tartrate 1 Mg/Ml Vial) 5 mg IV NOW STA Stop: 12/05/23 12:02 Last Admin: 12/05/23 12:10 Dose: 5 mg Documented By: CPB Sotalol HCl (Sotalol Hcl 80 Mg Tab) 40 mg PO NOW ONE Stop: 12/05/23 10:58 Last Admin: 12/05/23 11:07 Dose: 40 mg Documented By: CPB Imaging Data Radiologist's Impression: Chest X-Ray 12/05/23 10:19 XR chest 1V portable HISTORY: Right-sided chest pain. COMPARISON: Chest 12/04/2023. FINDINGS: No pneumothorax. No pleural effusions. The heart remains enlarged. There are calcifications within the aortic knob. No new focal lung consolidations to suggest a pneumonia. No evidence for pulmonary edema. No acute fractures identified. IMPRESSION: No significant change compared to the prior study. No acute process. ACT 112: Negative or not required by law. Electronically signed by: Clinton Chen M.D. 12/05/2023 10:40 AM Discharge Plan Visit Data Chief Complaint: Cardiac Assessment Stated Complaint: R SIDE PAIN, NAUSEA ED Provider: John Rao Discharge Problem: COVID-19, Atrial fibrillation with rapid ventricular response, Hypoxia, Renal colic, Renal insufficiency Patient Disposition: Admitted As Inpatient Discharge Instructions Interventions: ED Discharge Assessment Last Done: 12/05/23 17:38
[2023-12-05] MEDS: SODIUM CHLORIDE 0.9% 1,000 ML IV ONE (10:25)
--- NOTE | 2023-12-05 10:41 | XRay Report ---
XR chest 1V portable HISTORY: Right-sided chest pain. COMPARISON: Chest 12/04/2023. FINDINGS: No pneumothorax. No pleural effusions. The heart remains enlarged. There are calcifications within the aortic knob. No new focal lung consolidations to suggest a pneumonia. No evidence for pul monary edema. No acute fractures identified. IMPRESSION: No significant change compared to the prior study. No acute process. ACT 112: Negative or not required by law. Electronically signed by: Clinton Chen M.D. 12/05/2023 10:40 AM
[2023-12-05] MEDS: METOPROLOL TARTRATE 1 MG/ML VIAL IV STA ×3 (11:02→12:10)
[2023-12-05 11:05] LABS: Basophils # (auto) 0.03 K/uL (0.00-0.20); Basophils % (auto) 0.4 %; Eosinophils # (auto) 0.26 K/uL (0.00-0.50); Eosinophils % (auto) 3.2 %; Hemoglobin 9.6 g/dl (12.0-16.0); Immature Granulocytes # (auto) 0.05 K/uL (0.01-0.20); Immature Granulocytes % (auto) 0.6 %; Lymphocytes # (auto) 1.47 K/uL (1.20-3.40); Lymphocytes % (auto) 18.3 %; Mean Corpuscular Hemoglobin 27.4 pg (25.0-34.0); Mean Corpuscular Volume 88.6 fL (80.0-100.0); Mean Platelet Volume 9.7 fL (9.4-12.4); Monocytes # (auto) 0.73 K/uL (0.11-0.59); Monocytes % (auto) 9.1 %; Neutrophils # (auto) 5.49 K/uL (1.40-6.50); Neutrophils % (auto) 68.4 %; Platelet Count 251 K/uL (130-400); RDW Coefficient of Variation 15.4 % (11.5-14.5); RDW Standard Deviation 49.6 fL (36.4-46.3); White Blood Count 8.03 K/ul (4.8-10.8)
[2023-12-05] MEDS: SODIUM CHLORIDE 0.9% 500 ML IV ONE (11:05)
[2023-12-05] MEDS: SOTALOL HCL 80 MG TAB PO ONE (11:07)
[2023-12-05 11:33] LABS: Albumin Globulin Ratio 1.2 (0.9-2); Albumin Level 3.6 gm/dl (3.4-5.0); Bilirubin,Total 0.8 mg/dl (0.2-1.0); Creatinine Clr Calc Pharmacy 57.9 ml/min; Est GFR (African American) 39.6 ml/min; Est GFR (Non-African American) 34.2 ml/min; Phosphorus 3.7 mg/dl (2.5-4.9); Potassium 3.8 mmol/L (3.5-5.1); Thyroid Stimulating Hormone 5.953 uIu/ml (0.300-4.500); Total Protein 6.6 gm/dl (6.0-8.3); Troponin I High Sensitivity 54.3 pg/ml (0-14)
[2023-12-05 12:10] LABS: T4 Free Thyroxine 0.98 ng/dl (0.61-1.60)
[2023-12-05] MEDS: dexAMETHasone**PF** 10 MG/ML VIAL IV ONE (12:12)
[2023-12-05] MEDS ORDERED: STAT IV Infusion **Titration per Protocol STA (13:30)
--- NOTE | 2023-12-05 13:30 | History & Physical Report ---
Date of Service December 05, 2023 Assessment & Plan (1) Atrial fibrillation with rapid ventricular response: Plan: Patient is 63-year-old female with PMH paroxysmal atrial fibrillation anticoagulated on Eliquis, tachybradycardia syndrome, HTN, HLD, hypothyroidism, obesity, kidney stones presented to ER with complaint of right-sided abdominal pain started this morning. In ER afebrile, P: 147, RR: 19, BP 111/71. Magnesium: 2.0, TSH: 5.9 EKG: A-fib RVR, rate 143 per my review Patient denies chest pain, palpitations, shortness of breath. Dizziness reported with standing. Seems fairly asymptomatic from A-fib RVR standpoint In ER given total 15 mg Lopressor IV. Heart rate improved from 140s down to 120s. Patient given her morning dose of sotalol in ER Continue Eliquis Start diltiazem drip per cardiology recommendations Cardiology consult Will consider echo pending cardiology recommendations, as patient also with COVID-19 CBC, BMP, magnesium labs in a.m. (2) Elevated troponin: Plan: Initial troponin 54 Likely elevated secondary to demand ischemia from rapid A-fib Trend troponin EKG in a.m. (3) COVID-19: (4) Hypoxia: Plan: Sore throat, cough, congestion started 3-4 days ago In ER 89% on room air up to 95% on 3 L nasal cannula Currently on room air with sats 91-94% CXR: no acute infiltrate +COVID-19 test on 12/04/22 In ER given dexamethasone 6 mg IV Airborne isolation Supplemental oxygen Dexamethasone 6mg IV daily Incentive spirometry, flutter valve CBC, BMP in am (5) FLETCHER (acute kidney injury): Plan: Cr: 1.6. Was 1.0 on 11/15/2023. Had recent FLETCHER in 11/08/2023 that had resolved In ER given NSS Gentle IVF Monitor renal functions If no improvement consider nephrology consult Avoid nephrotoxic agents when possible (6) Abdominal pain: (7) Urolithiasis: Plan: Patient with reported right-sided abdominal pain started this morning, however reports has been having intermittent 12/04/2023: CT abdomen pelvis: Left-sided ureteral stent in place, bilateral intrarenal stones, proximal left ureteral stone, diverticulosis with no signs of diverticulitis. No acute appendicitis or bowel obstruction. No evidence of visceral or intra-abdominal injury. No acute fracture. Patient reportedly given pain medicine by EMS prior to ER arrival. Currently patient pain-free Plan to monitor for pain. Will hold on repeat CT imaging at this time as she just had less than 24 hours ago. Suspect may be renal colic. Will hold on renal ultrasound and KUB as likely limited with patient's body habitus Pain medication as needed If recurrent or worsening pain may need further imaging (8) Generalized weakness: Plan: Ambulates with cane at baseline. Increased generalized weakness past several days. Likely secondary to underlying infection with COVID-19 12/04/2023: CT head: No acute intracranial abnormality Fall precautions PT/OT eval (9) Tachycardia-bradycardia syndrome: Plan: History of tachybrady syndrome. Follows with cardiology and EP. In past has refused pacemaker Monitor on telemetry (10) Hypertension: Plan: Hold losartan and HCTZ with current FLETCHER Currently on diltiazem drip, monitor BPs (11) HLD (hyperlipidemia): Plan: Continue atorvastatin (12) Hypothyroidism: Plan: Continue levothyroxine (13) Morbid obesity with BMI of 60.0-69.9, adult: Plan: BMI: 67 DVT Prophylaxis On Eliquis Full Code as per discussion with pt Follows with Dr Rik Alan for routine care Pt was seen and care coordinated with Dr Mason. See addendum History of Present Illness Chief Complaint: Right sided abdominal pain Primary Care Provider: Rik Alan DO Patient is 63-year-old female with PMH paroxysmal atrial fibrillation anticoagulated on Eliquis, tachybradycardia syndrome, HTN, HLD, hypothyroidism, obesity, kidney stones presented to ER with complaint of right-sided abdominal pain started this morning. History obtained from patient, patient's significant other, inpatient and outpatient chart review. Patient with recent admission [facility] 11/08/2023-11/13/2023 for left ureteral calculus s/p left ureteral stent placement 11/08/2023, FLETCHER. Patient states has had sore throat, cough productive clear sputum, generalized weakness, dizziness with standing x 4 days. Patient seen in [facility] ER last night 12/04/23 for cough, sore throat, syncope, weakness. Was in sinus rhythm at that time. Workup included + COVID-19, unremarkable CT head, CT abdomen pelvis showed left ureteral stent in place and bilateral renal stones without other acute etiology. She was ultimately discharged home with prescription for [place], [place]. Patient reports limited ambulation at baseline. Usually uses cane to assist with ambulation. Reports past several days has been having increased weakness and states last night was dizzy with standing and thinks she passed out causing her to fall. Denies any known injury from the event. Patient reports continued weakness and was having trouble ambulating today. Also reports dizziness with standing. This morning started with right-sided abdominal pain. Patient states this feels like her prior kidney stones and thought it was a kidney stone. She does report intermittent right-sided abdominal pain over the past several weeks. Patient denies left abdominal or flank pain. She reports has continued hematuria since stent placement in October. Reports chronic urinary incontinence and frequency. Patient states some shortness of breath with exertion, she is unsure if this is increased from her baseline. Denies chest pain or palpitations. Denies fever/chills, diaphoresis, N/V/D/C, FIELDS, vision changes, neck pain, hemoptysis, paresthesias, increased extremity edema, rashes. Allergies Allergy/AdvReac Type Severity Reaction Status Date / Time lisinopril Allergy Intermediate Cough Verified 12/05/23 12:35 nickel Allergy itching Verified 12/24/22 08:43 simvastatin AdvReac Unknown Muscle Pain Verified 12/05/23 12:35 baby oil Allergy Intermediate Rash Uncoded 12/24/22 08:43 Home Medications Medication Instructions Recorded Confirmed Type apixaban 5 mg tablet (Eliquis) 5 mg PO BID #60 tabs 10/23/21 12/05/23 Rx levothyroxine 100 mcg tablet 100 mcg PO QAM 10/23/21 12/05/23 History (Euthyrox) alendronate 70 mg tablet 70 mg PO WK 05/15/22 12/05/23 History hydrochlorothiazide 25 mg tablet 25 mg PO QAM 05/16/22 12/05/23 History hydroxyzine HCl 25 mg tablet 25 - 50 mg (1 - 2 x 25 mg) PO Q6H 07/10/22 12/05/23 Rx PRN itching #20 tabs sotalol 80 mg tablet 40 mg PO BID17 11/08/23 12/05/23 History valacyclovir 1 gram tablet See Rx Instructions .Route 11/08/23 12/05/23 History (Valtrex) .COMPLEX PRN Cold Sores diclofenac sodium 1 % topical gel 4 g EXT Q6H PRN knee pain #100 11/11/23 12/05/23 Rx (Voltaren Arthritis Pain) grams gabapentin 300 mg capsule 300 mg PO HS #30 caps 11/11/23 12/05/23 Rx miconazole nitrate 2 % topical 1 applic EXT BID PRN fungal 11/11/23 12/05/23 Rx powder (Desenex) infection #85 grams ergocalciferol (vitamin D2) 1,250 50,000 unit PO .weekly 6 weeks #6 11/13/23 12/05/23 Rx mcg (50,000 unit) capsule (Vitamin caps D2) atorvastatin 40 mg tablet 40 mg PO DAILY 12/05/23 12/05/23 History benzonatate 100 mg capsule 100 mg PO TID PRN cough #20 caps 12/05/23 12/05/23 Rx losartan 50 mg tablet 50 mg PO DAILY 12/05/23 12/05/23 History nirmatrelvir 300 mg (150 mg See Rx Instructions PO .COMPLEX 12/05/23 12/05/23 Rx x2)-ritonavir 100 mg tablet,dose #30 tabs pack (Paxlovid) Past Med/Surg History Medical History Urolithiasis Morbid obesity with BMI of 60.0-69.9, adult Frequent urination at night Pre-diabetes Neuropathy Atrial fibrillation on Eliquis Cardiac murmur Follows with Dr. 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: No Beliefs That Will Affect Care: None Current Living Situation: Significant Other Current Living Situation Comment: Home with Ann Marie How many Children do You have: 0 Other Information That Helps Us Care for You: No Feels Safe at Home: Yes Safety Concerns: Feels Safe At This Time Assistive Devices: Cane and Walker Review of Systems Review of Systems: All systems reviewed & are unremarkable except as noted in HPI & below Physical Exam Physical Exam: General: no distress, +obese Head: normocephalic, atraumatic Eyes: PERRL, EOM's intact, conjunctiva non-injected, anicteric ENT: normal inspection external ears, nose, mucous membranes moist Neck: supple, trachea midline Lungs: clear, no respiratory distress, currently on room air with sat 93%, no wheezing/rhonchi/rales appreciated CV: Irregularly irregular, rate 120, no pretibial edema appreciated Abd: Protuberant, normal BS, soft, non-tender to palpation at this time, no CVA tenderness to percussion Ext: no cyanosis, no calf tenderness Neuro: A&O x 3, no focal deficits noted, normal affect Skin: warm, dry Results & Data Results & Data Vital Signs (Past 12 Hours) Vital Signs Temp Pulse Pulse Resp BP BP Pulse Ox 12/05/23 12:37 128 H 18 91 12/05/23 12:37 137/70 12/05/23 12:30 114 H 17 94 12/05/23 12:16 132/82 12/05/23 12:16 142 H 22 97 12/05/23 12:15 151 H 21 97 12/05/23 12:12 135 H 20 116/75 98 12/05/23 12:10 133 H 140/91 12/05/23 12:06 138 H 22 140/91 99 12/05/23 12:00 136 H 18 120/66 97 12/05/23 11:56 139 H 18 133/105 H 99 12/05/23 11:53 118 H 16 125/87 98 12/05/23 11:53 133 H 125/87 12/05/23 11:41 127 H 17 94/58 L 99 12/05/23 11:36 130 H 19 122/61 99 12/05/23 11:31 125 H 19 112/63 99 12/05/23 11:26 143 H 18 117/67 99 12/05/23 11:25 109 H 18 99 12/05/23 11:23 148 H 131/70 12/05/23 11:22 120 H 131/70 12/05/23 11:21 122 H 17 131/70 99 12/05/23 11:20 149 H 17 99 12/05/23 11:16 152 H 22 108/78 98 12/05/23 11:15 160 H 22 98 12/05/23 11:11 144 H 20 99 12/05/23 11:11 124/77 12/05/23 11:11 95 12/05/23 11:11 85 L 12/05/23 11:10 146 H 23 99 12/05/23 11:05 148 H 25 H 89 L 12/05/23 11:04 156 H 19 91 12/05/23 11:04 170/83 H 12/05/23 11:02 155 H 170/83 H 12/05/23 11:00 157 H 22 89 L 12/05/23 10:55 131 H 20 12/05/23 10:50 146 H 20 84 L 12/05/23 10:48 138 H 18 86 L 12/05/23 10:48 142/97 H 12/05/23 10:45 117 H 21 92 12/05/23 10:40 122 H 19 92 12/05/23 10:35 155 H 21 90 12/05/23 10:32 157 H 20 91 12/05/23 10:32 36.8 C 150 H 20 111/71 90 12/05/23 10:32 93 12/05/23 10:30 134 H 17 89 L 12/05/23 10:29 150 H 20 111/71 89 L 12/05/23 10:25 128 H 14 92 12/05/23 10:20 149 H 14 89 L 12/05/23 10:19 111/71 12/05/23 10:19 155 H 22 90 12/05/23 10:16 147 H 12/05/23 10:15 147 H 19 O2 Del Method O2 Flow Rate 12/05/23 12:37 12/05/23 12:37 12/05/23 12:30 12/05/23 12:16 12/05/23 12:16 12/05/23 12:15 12/05/23 12:12 12/05/23 12:10 12/05/23 12:06 12/05/23 12:00 12/05/23 11:56 12/05/23 11:53 12/05/23 11:53 12/05/23 11:41 12/05/23 11:36 12/05/23 11:31 12/05/23 11:26 12/05/23 11:25 12/05/23 11:23 12/05/23 11:22 12/05/23 11:21 12/05/23 11:20 12/05/23 11:16 12/05/23 11:15 12/05/23 11:11 12/05/23 11:11 12/05/23 11:11 Nasal Cannula 3 12/05/23 11:11 Room Air 12/05/23 11:10 12/05/23 11:05 12/05/23 11:04 12/05/23 11:04 12/05/23 11:02 12/05/23 11:00 12/05/23 10:55 12/05/23 10:50 12/05/23 10:48 12/05/23 10:48 12/05/23 10:45 12/05/23 10:40 12/05/23 10:35 12/05/23 10:32 Room Air 12/05/23 10:32 Room Air 12/05/23 10:32 Room Air 12/05/23 10:30 12/05/23 10:29 Room Air 12/05/23 10:25 12/05/23 10:20 12/05/23 10:19 12/05/23 10:19 12/05/23 10:16 12/05/23 10:15 Laboratory Results Short CBC 12/05/23 Range/Units 10:34 WBC 8.03 (4.8-10.8) K/ul Hgb 9.6 L (12.0-16.0) g/dl Hct 31.0 L (37.0-47.0) % Plt Count 251 (130-400) K/uL BMP 12/05/23 10:34 Sodium 136 Potassium 3.8 Chloride 103 Carbon Dioxide 22 BUN 24 H Creatinine 1.60 H D Glucose 134 H Calcium 8.0 L Liver Function 12/05/23 Range/Units 10:34 Total Bilirubin 0.8 (0.2-1.0) mg/dl AST 30 (13-39) U/L ALT 20 (7-52) U/L Alkaline Phosphatase 46 (34-104) U/L Albumin 3.6 (3.4-5.0) gm/dl Diagnostic Findings Chest X-Ray 12/05/23 10:19 XR chest 1V portable HISTORY: Right-sided chest pain. COMPARISON: Chest 12/04/2023. FINDINGS: No pneumothorax. No pleural effusions. The heart remains enlarged. There are calcifications within the aortic knob. No new focal lung consolidations to suggest a pneumonia. No evidence for pulmonary edema. No acute fractures identified. IMPRESSION: No significant change compared to the prior study. No acute process. ACT 112: Negative or not required by law. Electronically signed by: Clinton Chen M.D. 12/05/2023 10:40 AM Supervising Physician Co-Signing Physician Notes Pt seen and examined by myself, Nancy Mason MD on the day of service. Care was coordinated with Ruby Roque PA-C. 63yoF with Hx of PAF admitted with a fib with RVR in the setting of a COVID infection. Presenting with R sided abdominal pain as well in the setting of recent stent placement on the left for obstructive uropathy. at bedside when pt seen in the ED. Abdomen was non tender on exam diffusely. Per pt she had received pain medications that helped. Cardiology consulted- was given home sotalol dose and started on cardizem drip. Appreciate further cardiology recs and care. Supportive treatment for COVID, supplemental oxygen, daily dexamethasone. Chest xray with no superimposed pneumonia. Consider further renal imaging for R sided abdominal pain, pt with known bilateral kidney stones- CT abd/pelvis from the day before reviewed. FLETCHER noted, very gentle, limited hydration in setting of her cardiac history. Otherwise as above.
[2023-12-05] MEDS: APIXABAN 5 MG TABLET PO ONE (14:04)
[2023-12-05] MEDS: dilTIAZem HCL 125 MG in DEXTROSE 5% 100 ML IV SCH (14:04)
[2023-12-05] MEDS ORDERED: BENZONATATE 100 MG CAPSULE PO PRN (14:20)
--- NOTE | 2023-12-05 15:47 | Cardiology Consultation ---
Date of Consultation December 05, 2023 Assessment & Plan (1) Atrial fibrillation with rapid ventricular response: (2) COVID-19: (3) Morbid obesity with BMI of 60.0-69.9, adult: Plan -Chest x-ray without suggestion of pulmonary edema or infiltrate. -Initial EKG on 12/04/2023 2219 revealed sinus rhythm at 74 bpm with occasional PACs. -Repeat tracing performed 12/05/2023 at 10:15 AM revealed atrial fibrillation with rapid ventricular sponsor 143 bpm without significant repolarization abnormalities. -Patient is on sotalol 40 mg twice daily as an outpatient, with dose limited by borderline tachycardia-bradycardia syndrome. She received a dose of 40 mg this morning at 11:07 AM. Given her degree of acute renal insufficiency, will hold off on further sotalol at this time. -A diltiazem infusion had been initiated prior to my arrival, and her rates were moderately improved. -Will add metoprolol to tartrate and substitute for further sotalol at present given the acute kidney injury. -Continue Eliquis 5 mg twice daily. -Anticipate ventricular rate will improve as she gets over her viral illness. -No need for repeat echocardiogram at present, given her acute illness, together with baseline elevated BMI, images would likely be technically limited, and I think the test would be of higher yield if we wait till she is feeling better, perhaps as an outpatient. -She has a mild but flat elevation of troponin, and I do not think her presentation is suggestive of an acute coronary syndrome. -Mild anemia noted. Will hold follow. . History of Present Illness Attending Physician: Nancy Mason MD History of Present Illness Dipesh Cox is a 63 year old female seen in cardiology consultation per the request of Ruby Roque PA-C and Dr Mason for the evaluation of atrial fibrillation with rapid ventricular response. The patient describes 3 days of progressive upper respiratory symptoms including cough and congestion, and vague dizziness. She also had vague right-sided abdominal pain. The patient has a history of recent ureteral calculus denies subjective palpitations. On arrival to the emergency department she was found to be in atrial fibrillation with rapid ventricular response, ventricular rate as high as 150 bpm. She tested positive for SARS-CoV-2 and has been found to have acute renal insufficiency with creatinine of 1.6 mg/dL today increased compared to 0.94 on 12/04/2023, and 1.03 on 11/13/2023. Noted at time of hospitalization in October, and underwent cystoscopy and left ureter stent placement at that time with plan to repeat cystoscopy scheduled for later this month. The patient has a history of symptomatic paroxysmal atrial fibrillation with borderline tachycardia-bradycardia syndrome. She had been hospitalized with rapid atrial fibrillation in September, and converted to sinus rhythm after administration of IV diltiazem. She has since been anticoagulated with Eliquis, and has been on sotalol 40 mg twice daily. Outpatient echocardiogram performed June, revealed LVEF of 57%,borderline to mild aortic valve stenosis was noted. A nuclear stress test performed in December, was negative for ischemia. Allergies Allergy/AdvReac Type Severity Reaction Status Date / Time lisinopril Allergy Intermediate Cough Verified 12/05/23 12:35 nickel Allergy itching Verified 12/24/22 08:43 simvastatin AdvReac Unknown Muscle Pain Verified 12/05/23 12:35 baby oil Allergy Intermediate Rash Uncoded 12/24/22 08:43 Home Medications Medication Instructions Recorded Confirmed Type apixaban 5 mg tablet (Eliquis) 5 mg PO BID #60 tabs 10/23/21 12/05/23 Rx levothyroxine 100 mcg tablet 100 mcg PO QAM 10/23/21 12/05/23 History (Euthyrox) alendronate 70 mg tablet 70 mg PO WK 05/15/22 12/05/23 History hydrochlorothiazide 25 mg tablet 25 mg PO QAM 05/16/22 12/05/23 History hydroxyzine HCl 25 mg tablet 25 - 50 mg (1 - 2 x 25 mg) PO Q6H 07/10/22 12/05/23 Rx PRN itching #20 tabs sotalol 80 mg tablet 40 mg PO BID17 11/08/23 12/05/23 History valacyclovir 1 gram tablet See Rx Instructions .Route 11/08/23 12/05/23 History (Valtrex) .COMPLEX PRN Cold Sores diclofenac sodium 1 % topical gel 4 g EXT Q6H PRN knee pain #100 11/11/23 12/05/23 Rx (Voltaren Arthritis Pain) grams gabapentin 300 mg capsule 300 mg PO HS #30 caps 11/11/23 12/05/23 Rx miconazole nitrate 2 % topical 1 applic EXT BID PRN fungal 11/11/23 12/05/23 Rx powder (Desenex) infection #85 grams ergocalciferol (vitamin D2) 1,250 50,000 unit PO .weekly 6 weeks #6 11/13/23 12/05/23 Rx mcg (50,000 unit) capsule (Vitamin caps D2) atorvastatin 40 mg tablet 40 mg PO DAILY 12/05/23 12/05/23 History benzonatate 100 mg capsule 100 mg PO TID PRN cough #20 caps 12/05/23 12/05/23 Rx losartan 50 mg tablet 50 mg PO DAILY 12/05/23 12/05/23 History nirmatrelvir 300 mg (150 mg See Rx Instructions PO .COMPLEX 12/05/23 12/05/23 Rx x2)-ritonavir 100 mg tablet,dose #30 tabs pack (Paxlovid) Patient History Medical History Urolithiasis Morbid obesity with BMI of 60.0-69.9, adult Frequent urination at night Pre-diabetes Neuropathy Atrial fibrillation on Eliquis Cardiac murmur Follows with Dr. Olga Lidia BARRAZA (hyperlipidemia) Osteoporosis Hypothyroidism Tachycardia-bradycardia syndrome Hypertension Surgical History History of wisdom tooth extraction History of hip surgery BL Family History Other No family history of adverse response to anesthesia Social History Smoking Status: Never smoker Second Hand Exposure: No; Do You Dip or Chew Tobacco: No; Hx Alcohol Use: Yes Alcohol type: other Hx Substance Use: No Preferred Language: Persian Communication Ability: Effective Plug Saw Operator Required: No Beliefs That Will Affect Care: None Current Living Situation: Significant Other Current Living Situation Comment: Home with Fiancee How many Children do You have: 0 Feels Safe at Home: Yes Assistive Devices: Cane and Walker Review of Systems Review of Systems: All systems reviewed & are unremarkable except as noted in HPI & below Physical Exam Physical Exam: Temp Pulse Resp BP Pulse Ox O2 Del Method O2 Flow Rate 36.8 C 120 H 17 116/65 91 Room Air 3 12/05/23 10:32 12/05/23 15:06 12/05/23 14:30 12/05/23 14:30 12/05/23 14:30 12/05/23 14:30 12/05/23 11:11 Constitutional: + ill appearing and + obese Respiratory: no labored breathing Cardiovascular: Rate/Rhythm: + tachycardic and + irregularly irregular Extremities: no edema
[2023-12-05] MEDS ORDERED: SOTALOL HCL 80 MG TAB PO SCH (17:00)
[2023-12-05] MEDS: MoRPHine SULFATE 4 MG/ML 1 ML CARP\\VIAL IV PRN (20:34)
[2023-12-05] MEDS: GABAPENTIN 300 MG CAP PO SCH (20:40)
[2023-12-05] MEDS: guaiFENesin 600 MG TABCR PO SCH (20:40)
[2023-12-05] MEDS: APIXABAN 5 MG TABLET PO SCH (20:40)
[2023-12-05] MEDS: SODIUM CHLORIDE 0.9% 1,000 ML IV SCH (20:41)
--- NOTE | 2023-12-05 22:14 | Electrocardiogram Report ---
Test Reason : Blood Pressure : / mmHG Vent. Rate : 143 BPM Atrial Rate : 000 BPM P-R Int : 000 ms QRS Dur : 078 ms QT Int : 304 ms P-R-T Axes : 000 -01 150 degrees QTc Int : 469 ms Atrial fibrillation with rapid ventricular response with premature ventricular or aberrantly conducte d complexes Minimal voltage criteria for LVH, may be normal variant ( R in aVL ) Nonspecific ST and T wave abnormality Abnormal ECG When compared with ECG of 04-DEC-2023 22:19, Atrial fibrillation has replaced Sinus rhythm Vent. rate has increased BY 69 BPM Confirmed by Sergey Renteria ([id number]) on 12/05/2023 10:14:18 PM Referred By: REFERRED SELF Confirmed By:Sergey Renteria
[2023-12-06] MEDS: MICONAZOLE NITRATE POWDER 85 GM EXT SCH (03:09)
[2023-12-06 05:44] LABS: Basophils # (auto) 0.01 K/uL (0.00-0.20); Basophils % (auto) 0.1 %; Hematocrit (blood only) 31.3 % (37.0-47.0); Hemoglobin 9.9 g/dl (12.0-16.0); Immature Granulocytes # (auto) 0.04 K/uL (0.01-0.20); Immature Granulocytes % (auto) 0.5 %; Lymphocytes # (auto) 1.45 K/uL (1.20-3.40); Lymphocytes % (auto) 17.7 %; Mean Corpuscular Hgb Conc 31.6 g/dL (32.0-36.0); Mean Corpuscular Volume 88.4 fL (80.0-100.0); Mean Platelet Volume 9.7 fL (9.4-12.4); Monocytes # (auto) 0.63 K/uL (0.11-0.59); Monocytes % (auto) 7.7 %; Neutrophils # (auto) 6.06 K/uL (1.40-6.50); Platelet Count 269 K/uL (130-400); RDW Coefficient of Variation 15.4 % (11.5-14.5); RDW Standard Deviation 49.6 fL (36.4-46.3); Red Blood Count 3.54 M/uL (4.20-5.40); White Blood Count 8.19 K/ul (4.8-10.8)
[2023-12-06 06:01] LABS: Albumin Globulin Ratio 1.2 (0.9-2); Albumin Level 3.6 gm/dl (3.4-5.0); BUN Creatinine Ratio 21.9 (10-20); Bilirubin,Total 0.6 mg/dl (0.2-1.0); Calcium 8.2 mg/dl (8.6-10.3); Creatinine Clr Calc Pharmacy 54.8 ml/min; Est GFR (African American) 37.1 ml/min; Globulin 3.1 gm/dl (2.5-4.0); Magnesium 2.2 mg/dl (1.7-2.4); Total Protein 6.7 gm/dl (6.0-8.3)
[2023-12-06] MEDS: LEVOTHYROXINE SODIUM 100 MCG TABLET PO SCH (06:18)
[2023-12-06] MEDS: METOPROLOL TARTRATE 25 MG TAB PO SCH (08:10)
[2023-12-06] MEDS: ATORVASTATIN 40 MG TAB PO SCH (08:10)
[2023-12-06] MEDS: dexAMETHasone 6 MG in SYRINGE 0 ML IV SCH (08:31)
[2023-12-06] MEDS: oxyCODONE HCL IR 5 MG TAB (IMMEDIATE RELEASE) PO PRN (08:32)
[2023-12-06] MEDS ORDERED: DEXAMETHASONE SOD INJ 4 MG/ML VIAL IV SCH (09:00)
--- NOTE | 2023-12-06 09:23 | Electrocardiogram Report ---
Test Reason : Blood Pressure : / mmHG Vent. Rate : 078 BPM Atrial Rate : 091 BPM P-R Int : 000 ms QRS Dur : 086 ms QT Int : 390 ms P-R-T Axes : 000 000 -10 degrees QTc Int : 444 ms Atrial fibrillation with premature ventricular or aberrantly conducted complexes Moderate voltage criteria for LVH, may be normal variant Abnormal ECG When compared with ECG of 05-DEC-2023 10:15, Vent. rate has decreased BY 65 BPM Confirmed by Liam Melendez ([id number]) on 12/06/2023 9:23:06 AM Referred By: REFERRED SELF Confirmed By:Liam Melendez
[2023-12-06] MEDS: PROMETHAZINE HCL 6.25 MG in SODIUM CHLORIDE 0.9% 50 ML IV PRN (12:04)
--- NOTE | 2023-12-06 14:16 | Urology Consultation ---
Date of Consultation December 06, 2023 Assessment & Plan (1) Gross hematuria: (2) Ureteral stent present: (3) Acute renal failure: (4) Abdominal pain: Plan 63yo/F who was recently admitted with a ureteral stone and underwent left stent placement 11/08/2023. She presented to the ED 12/05/23 with right sided abdominal pain and is admitted with Covid-19, AFib RVR, and FLETCHER. Urology consulted for gross hematuria. - Afebrile, vitals stable. - Labs today show no leukocytosis, hemoglobin 9.9, creatinine 1.69. - Urine culture ordered but not yet collected/pending. - CTAP 12/04/23 reviewed - Bilateral nephrolithiasis, left sided ureteral stent in place, no hydronephrosis - No urological intervention indicated. - There are no acute findings on recent CT to explain her right sided pain. - Hematuria is likely secondary to stent in the setting of chronic anticoagulation. - Recommend checking urine culture to r/o infection and treat if indicated. - Voiding spontaneously w/hematuria. As long as she is emptying her bladder, can continue to monitor. - Anticoagulation per primary team/cardiology. Urology can manage hematuria as needed. - Continue supportive care and pain management. - Continue to trend labs. - Will need to reschedule outpatient follow-up with our service after acute issues have resolved. - Urology will follow peripherally. Please contact us with any further questions, concerns, or changes in patient status. Plan of care reviewed with Dr. Nassar. History of Present Illness Attending Physician: Nancy Mason MD History of Present Illness 63 year old female with a PMHx including paroxysmal atrial fibrillation anticoagulated on Eliquis, tachybradycardia syndrome, HTN, HLD, hypothyroidism, obesity, kidney stones who presented to the ER 12/05/23 with complaints of right- sided abdominal pain. Was seen in [facility] ER 12/04/23 for cough, sore throat, syncope, weakness. Found to be + COVID-19. Had an unremarkable CT head. CT abdomen pelvis showed left ureteral stent in place and bilateral renal stones without other acute etiology. She was discharged home but returned to the ED on 12/05/2022 due to right-sided abdominal pain and increased weakness. On arrival to the emergency department she is found to be in A-fib with RVR. Admitted to medicine service with COVID 19, A-fib RVR, elevated troponin, FLETCHER. Of note, patient with recent admission to [facility] 11/08/2023-11/13/2023 for left ureteral calculus s/p left ureteral stent placement 11/08/2023. Urology consulted for gross hematuria. Patient examined at bedside this afternoon. Awake, sitting in bedside chair on arrival. No acute distress. On COVID precautions. Reports intermittent right- sided discomfort. Voiding spontaneously. Has external catheter in place. Urine is grossly blood in canister. Pt reports urine is "dark brown" in tubing when voiding. Feels she is emptying her bladder well. Denies dysuria. No fever, chills, nausea, vomiting at present. Denies left sided pain/discomfort. Pt was scheduled in urology clinic today for H&P for upcoming procedure. She is currently scheduled 12/15/[address] Nassar for stone treatment. Allergies Allergy/AdvReac Type Severity Reaction Status Date / Time lisinopril Allergy Intermediate Cough Verified 12/05/23 12:35 nickel Allergy itching Verified 12/24/22 08:43 simvastatin AdvReac Unknown Muscle Pain Verified 12/05/23 12:35 baby oil Allergy Intermediate Rash Uncoded 12/24/22 08:43 Home Medications Medication Instructions Recorded Confirmed Type apixaban 5 mg tablet (Eliquis) 5 mg PO BID #60 tabs 10/23/21 12/05/23 Rx levothyroxine 100 mcg tablet 100 mcg PO QAM 10/23/21 12/05/23 History (Euthyrox) alendronate 70 mg tablet 70 mg PO WK 05/15/22 12/05/23 History hydrochlorothiazide 25 mg tablet 25 mg PO QAM 05/16/22 12/05/23 History hydroxyzine HCl 25 mg tablet 25 - 50 mg (1 - 2 x 25 mg) PO Q6H 07/10/22 12/05/23 Rx PRN itching #20 tabs sotalol 80 mg tablet 40 mg PO BID17 11/08/23 12/05/23 History valacyclovir 1 gram tablet See Rx Instructions .Route 11/08/23 12/05/23 History (Valtrex) .COMPLEX PRN Cold Sores diclofenac sodium 1 % topical gel 4 g EXT Q6H PRN knee pain #100 11/11/23 12/05/23 Rx (Voltaren Arthritis Pain) grams gabapentin 300 mg capsule 300 mg PO HS #30 caps 11/11/23 12/05/23 Rx miconazole nitrate 2 % topical 1 applic EXT BID PRN fungal 11/11/23 12/05/23 Rx powder (Desenex) infection #85 grams ergocalciferol (vitamin D2) 1,250 50,000 unit PO .weekly 6 weeks #6 11/13/23 12/05/23 Rx mcg (50,000 unit) capsule (Vitamin caps D2) atorvastatin 40 mg tablet 40 mg PO DAILY 12/05/23 12/05/23 History benzonatate 100 mg capsule 100 mg PO TID PRN cough #20 caps 12/05/23 12/05/23 Rx losartan 50 mg tablet 50 mg PO DAILY 12/05/23 12/05/23 History nirmatrelvir 300 mg (150 mg See Rx Instructions PO .COMPLEX 12/05/23 12/05/23 Rx x2)-ritonavir 100 mg tablet,dose #30 tabs pack (Paxlovid) Patient History Medical History Urolithiasis Morbid obesity with BMI of 60.0-69.9, adult Frequent urination at night Pre-diabetes Neuropathy Atrial fibrillation on Eliquis Cardiac murmur Follows with Dr. Olga Lidia BARRAZA (hyperlipidemia) Osteoporosis Hypothyroidism Tachycardia-bradycardia syndrome Hypertension Surgical History History of wisdom tooth extraction History of hip surgery BL Family History Other No family history of adverse response to anesthesia Social History Smoking Status: Former smoker Second Hand Exposure: No; Do You Dip or Chew Tobacco: No; Tobacco Cessation Education Requested by Patient: No Hx Alcohol Use: Yes Alcohol type: other Hx Substance Use: No Preferred Language: Chinese Communication Ability: Effective Milk Pasteurizer Required: No Beliefs That Will Affect Care: None Current Living Situation: Significant Other Current Living Situation Comment: Home with Fiancee How many Children do You have: 0 Other Information That Helps Us Care for You: No Feels Safe at Home: Yes Safety Concerns: Feels Safe At This Time Assistive Devices: Cane and Walker Review of Systems Review of Systems: All systems reviewed & are unremarkable except as noted in HPI & below Physical Exam Constitutional: + obese; no acute distress Neck: normal visual inspection Respiratory: no respiratory distress and no labored breathing Musculoskeletal: Head/Neck/Chest: normocephalic Skin: No visible rashes or lesions to exposed skin areas Neurologic: moves all extremities and awake Psychiatric: A+Ox3, euthymic affect Genitourinary: External cath in place draining w/hematuria Results & Data Vital Signs (Past 12 Hours) Vital Signs Temp Pulse Pulse Resp BP Pulse Ox O2 Del Method 12/06/23 09:07 71 12/06/23 09:07 Room Air 12/06/23 02:25 36.4 C L 84 18 136/70 95 Room Air PG Care Time/CCT Total # of Minutes Spent Total Time Spent with Patient: Total time spent is greater than 50% in coordination of care (as documented) at patient's floor/unit and/or counseling patient: Coding Level of Care Code 55387 IN/OBS CONSULT LVL 3,45M Diagnoses Gross hematuria R31.0 Ureteral stent present Z96.0 Acute renal failure N17.9 Abdominal pain R10.9
--- NOTE | 2023-12-06 17:16 | Cardiology Progress Note ---
Date of Service December 06, 2023 Assessment & Plan (1) Atrial fibrillation with rapid ventricular response: (2) COVID-19: (3) Morbid obesity with BMI of 60.0-69.9, adult: Plan -Neurology input noted and appreciated with regards to the patient's hematuria. -Dissipate her atrial fibrillation will improve as her viral illness improves. -Sotalol on hold favoring metoprolol tartrate for now -FLETCHER still present, but no worse -Continue diltiazem infusion and Eliquis. Admission and Anticipated Discharge Date Admission Date: December 05, 2023 Subjective Patient seen in cardiology follow-up. She is sitting eating her evening meal. In no acute distress. On telemetry, ongoing atrial fibrillation present with rates generally in the 70s to 80s. Earlier today she had a 2.8-second pause followed by a 3.6-second pause. 3.6-second pause was at 12:44 PM. The diltiazem infusion was therefore decreased from 10 mg/h to 5 mg/h and rates have been stable in the meantime. Physical Exam Constitutional: + ill appearing and + obese Respiratory: no labored breathing Cardiovascular: Rate/Rhythm: + tachycardic and + irregularly irregular Heart Sounds: no murmur Extremities: no edema Gastrointestinal (Abdomen): normal bowel sounds, soft, nontender, no hepatosplenomegaly Neurologic: PERRL, EOMI, accommodation nl, no face palsy, no dysarthria Results & Data Vital Signs (Past 12 Hours) Vital Signs Pulse O2 Del Method 12/06/23 16:01 88 12/06/23 09:07 71 12/06/23 09:07 Room Air Laboratory Results Cardiac Enzymes 12/05/23 12/06/23 12/06/23 Range/Units 18:11 00:25 05:27 AST 21 (13-39) U/L Troponin I High Sens 47.5 H 41.3 H (0-14) pg/ml CBC 12/06/23 Range/Units 05:27 WBC 8.19 (4.8-10.8) K/ul RBC 3.54 L (4.20-5.40) M/uL Hgb 9.9 L (12.0-16.0) g/dl Hct 31.3 L (37.0-47.0) % Plt Count 269 (130-400) K/uL Neut # (Auto) 6.06 (1.40-6.50) K/uL Lymph # (Auto) 1.45 (1.20-3.40) K/uL Hawkins # (Auto) 0.63 H (0.11-0.59) K/uL Eos # (Auto) 0.00 (0.00-0.50) K/uL Baso # (Auto) 0.01 (0.00-0.20) K/uL Comprehensive Metabolic Panel 12/06/23 Range/Units 05:27 Sodium 136 (136-145) mmol/L Potassium 4.0 (3.5-5.1) mmol/L Chloride 104 (98-107) mmol/L Carbon Dioxide 22 (21-32) mmol/L BUN 37 H (6-23) mg/dl Creatinine 1.69 H (0.6-1.2) mg/dl Glucose 136 H (70-99(Fasting)) mg/dl Calcium 8.2 L (8.6-10.3) mg/dl AST 21 (13-39) U/L ALT 18 (7-52) U/L Alkaline Phosphatase 46 (34-104) U/L Total Protein 6.7 (6.0-8.3) gm/dl Albumin 3.6 (3.4-5.0) gm/dl Intake and Output 12/06/23 12/06/23 12/06/23 06:59 14:59 22:59 Intake Total 239.083 / 2068.734 5674.25 / 1125.25 Output Total 100 / 100 Balance 139.083 / 1890.611 0805.25 / 1125.25 Intake: IV 89.083 / 0286.378 5472.25 / 1125.25 Promethazine HCl 6.25 mg In 50.25 / 50.25 Sodium Chloride 0.9% 50 ml @ 201 mls/hr IV Q6H PRN Rx#: [id number] Sodium Chloride 0.9% 1,000 ml @ 1000 / 1000 80 mls/hr IV .[id number] BALJEET Rx#: [id number] dilTIAZem HCL 125 mg In 89.083 / 125.000 75 / 75 Dextrose 5% 100 ml @ 10 MG/HR 10 mls/hr IV .[id number] BALJEET Rx#: [id number] Oral 150 / 400 Output: Urine Amount (Catheter) 100 / 100 External 100 / 100 Other: Weight 173 kg Weight Measurement Method Built in [facility]
--- NOTE | 2023-12-06 19:55 | Hospitalist Progress Note ---
Date of Service December 06, 2023 Assessment & Plan (1) Atrial fibrillation with rapid ventricular response: (2) Elevated troponin: (3) COVID-19: (4) Hypoxia: (5) FLETCHER (acute kidney injury): (6) Abdominal pain: (7) Urolithiasis: (8) Generalized weakness: (9) Tachycardia-bradycardia syndrome: (10) Hypertension: (11) HLD (hyperlipidemia): (12) Hypothyroidism: (13) Morbid obesity with BMI of 60.0-69.9, adult: Plan Patient is a 63yoF with PMHx significant for paroxysmal atrial fibrillation anticoagulated on Eliquis, tachybradycardia syndrome refusing pacemaker, HTN, HLD, hypothyroidism, obesity, obstructive uropathy s/p L uretal stent placement on 11/08 admitted with R sided abdominal pain, FLETCHER and atrial fibrillation with RVR in the setting of a COVID infection. Atrial fibrillation with rapid ventricular response Presented with R abd pain, found to be in a fib with RVR Usually on sotalol 40mg BID with Eliquis for anticoagulation for PAF. Had not taken her AM dose of sotalol. On admission, P: 147, RR: 19, BP 111/71. K 3.8, Magnesium: 2.0, TSH: 5.9 T4 0.98 EKG on admission: A-fib RVR, rate 143 Patient denied chest pain, palpitations, shortness of breath. Dizziness reported with standing. In ER received a total of 15mg of IV Lopressor. Heart rate improved from 140s down to 120s. Patient given her morning dose of sotalol in the ER Started on a diltiazem drip per cardiology recommendations Cardiology consulted- appreciate recs. Recommended: -holding home sotalol in setting of FLETCHER, transitioned to PO metoprolol tartrate 25mg QID with diltiazem drip -Continue Eliquis 5mg BID for anticoagulation -deferring repeat echo 12/06- pt with noted pauses, diltiazem drip rate decreased, heart rates remain controlled. Appreciate cardiology recs for further management Elevated troponin Initial troponin 54. Downtrended to 41.3 EKG with noted atrial fibrillation with RVR Likely elevated secondary to demand ischemia from rapid A-fib, doubt ACS COVID-19 Acute hypoxic respiratory failure Pt with sore throat, cough, congestion that started 3-4 days prior to arrival In ER 89% on room air up to 95% on 3L nasal cannula COVID-19 positive on 12/04/22 Chest xray with no acute changes In ER given dexamethasone 6 mg IV, continue daily Airborne isolation Supplemental oxygen as needed, wean as tolerated Incentive spirometry, flutter valve Further supportive treatment as needed FLETCHER (acute kidney injury) Cr: 1.6 on admission, was 0.94 the day before Received NSS 2L, Cr slightly increased at 1.69 Continue gentle diuresis with NSS @70 for 2 bags. Monitor fluid balance, last echo in 2021 did not note CHF, cardiomegaly however noted on recent chest XRAY. Per cardiology deferring on repeat echo at this time. Avoid contrast/nephrotoxic meds Monitor renal function If no improvement consider nephrology consult Abdominal pain Hx of obstructive uropathy s/p stent placement Patient with reported right-sided abdominal pain that started morning of admission. 12/04/2023 (day before admission), CT abdomen pelvis noted LEFT-sided ureteral stent in place, bilateral intrarenal stones, proximal left ureteral stone, diverticulosis with no signs of diverticulitis. No acute appendicitis or bowel obstruction. No evidence of visceral or intra-abdominal injury. No acute fracture. Pain control Urology consult placed for hematuria (see below) but appreciate recs for this as well. Hematuria Anemia Pt with gross blood in urinary canister near bed Hgb 9.9 currently, was 11.4 on 11/08, appears her baseline is ~11 Appears anemia microcytic, MCV 88 AM iron studies ordered Had uncollected UA from the ED Repeat UA order placed Urology consult- appreciate recs Generalized weakness Ambulates with cane at baseline. Increased generalized weakness over the past several days. Likely secondary to underlying infection with COVID-19 12/04/2023: CT head: No acute intracranial abnormality Fall precautions PT/OT eval-awaiting recs Tachycardia-bradycardia syndrome History of tachybrady syndrome. Follows with cardiology and EP. In past has refused pacemaker Monitor on telemetry Hypertension Hold losartan and HCTZ with current FLETCHER Currently on metoprolol tartrate 25mg QID with diltiazem drip, monitor BPs HLD (hyperlipidemia) Continue atorvastatin Hypothyroidism Continue levothyroxine Morbid obesity with BMI of 60.0-69.9, adult BMI: 67 Encourage weight loss Diet: DVT Prophylaxis: On Eliquis CODE STATUS: Full code Dispo: PT/OT orders pending Admission and Anticipated Discharge Date Admission Date: December 05, 2023 Subjective Pt seen while eating lunch, sitting in a chair near her bed. also at bedside. States she was nauseous, occasionally falling asleep during the exam. Per nursing, had received both oxycodone and morphine as her pain was not controlled. Gross bloody urinary output in canister near bed. Otherwise denied acute concerns. Review of Systems Review of Systems: All systems reviewed & are unremarkable except as noted in Subjective Physical Exam Physical Exam: General: Sleepy, oriented. No acute distress, sitting in chair Psych: Appropriate mood and affect Neuro: Drowsy HEENT: NC/AT CV: Heart sounds faint, irregular Resp: no increased effort of breathing Abdomen: Soft, nontender Extremities: edema in lower extremities bilaterally. Results & Data Results & Data Vital Signs (Past 12 Hours) Vital Signs Temp Pulse Pulse Resp BP Pulse Ox O2 Del Method 12/06/23 09:07 71 12/06/23 09:07 Room Air 12/06/23 02:25 36.4 C L 84 18 136/70 95 Room Air
[2023-12-06] MEDS: SODIUM CHLORIDE 0.9% 1,000 ML IV SCH (22:43)
[2023-12-07 01:44] LABS: Appearance Urine Turbid (Clear); Color Urine Red; Specific Gravity Urine 1.024 (1.000-1.030)
[2023-12-07 01:45] LABS: Bacteria Urine Negative (Negative); Epithelial Cell Urine 20-30 /lpf (0-5); RBC Urine >30 /hpf (0-4); WBC Urine >30 /hpf (0-5)
[2023-12-07 01:46] LABS: Hyaline Casts Urine 0-5 /lpf (0-5)
[2023-12-07 07:33] LABS: Hematocrit (blood only) 30.8 % (37.0-47.0); Hemoglobin 9.5 g/dl (12.0-16.0); Mean Corpuscular Hemoglobin 27.5 pg (25.0-34.0); Mean Corpuscular Hgb Conc 30.8 g/dL (32.0-36.0); Platelet Count 279 K/uL (130-400); RDW Standard Deviation 49.2 fL (36.4-46.3); Red Blood Count 3.46 M/uL (4.20-5.40); White Blood Count 9.69 K/ul (4.8-10.8)
[2023-12-07 07:52] LABS: BUN Creatinine Ratio 28.7 (10-20); Calcium 7.9 mg/dl (8.6-10.3); Creatinine Clr Calc Pharmacy 54.1 ml/min; Est GFR (African American) 36.6 ml/min; Est GFR (Non-African American) 31.5 ml/min; Magnesium 2.2 mg/dl (1.7-2.4); Phosphorus 3.8 mg/dl (2.5-4.9); Potassium 4.3 mmol/L (3.5-5.1)
[2023-12-07 08:11] LABS: Ferritin 313.8 ng/ml (8-388)
--- NOTE | 2023-12-07 09:50 | Urology Progress Note ---
Date of Service December 07, 2023 Assessment & Plan (1) Gross hematuria: (2) Ureteral stent present: (3) Acute renal failure: (4) Abdominal pain: Plan 63yo/F who was recently admitted with a ureteral stone and underwent left stent placement 11/08/2023. She presented to the ED 12/05/23 with right sided abdominal pain and is admitted with Covid-19, AFib RVR, and FLETCHER. Urology consulted for gross hematuria. - Afebrile, vitals stable. - Labs today show no leukocytosis, hemoglobin 9.5 (9.9 yesterday), creatinine 1.71 (1.69 yesterday). - Urine culture pending. - CTAP 12/04/23 reviewed - Bilateral nephrolithiasis, left sided ureteral stent in place, no hydronephrosis - No urological intervention indicated. - There are no acute findings on recent CT to explain her right sided pain. - Hematuria is likely secondary to stent in the setting of chronic anticoagulation. - Voiding spontaneously w/ gross hematuria, external cath in place. - Pt does report some difficulty voiding overnight. - Given difficulty voiding and FLETCHER would recommend Danielle catheter placement for bladder decompression. - Anticoagulation per primary team/cardiology. Urology can manage hematuria as needed. - Continue supportive care and pain management. - Continue to trend labs. - Will need to reschedule outpatient follow-up with our service after acute issues have resolved. - Urology will follow. Admission and Anticipated Discharge Date Admission Date: December 05, 2023 Subjective Pt examined at bedside this AM. Awake, sitting in bedside chair on arrival. No acute distress. On Covid precautions. Reports bilateral back pain this morning. Voiding spontaneously. Has external catheter in place. Urine is grossly bloody in canister. Reports some difficulty voiding overnight Feels she is emptying her bladder well now. Denies dysuria. Denies fever, chills, vomiting. Reports some nausea. Review of Systems Constitutional: as per Subjective / HPI Genitourinary: as per Subjective / HPI Physical Exam Constitutional: + obese; no acute distress Respiratory: no respiratory distress and no labored breathing Neurologic: moves all extremities and awake Psychiatric: Orientation: alert and oriented x 3 Genitourinary: External catheter w/gross hematuria Results & Data Vital Signs (Past 12 Hours) Vital Signs Temp Pulse Pulse Pulse Resp BP Pulse Ox 12/07/23 07:38 36.2 C L 77 16 148/71 H 95 12/07/23 02:51 36.6 C 63 18 118/75 94 12/06/23 23:00 36.5 C 75 20 158/84 H 93 12/06/23 22:00 12/06/23 21:57 75 O2 Del Method 12/07/23 07:38 Room Air 12/07/23 02:51 Room Air 12/06/23 23:00 Room Air 12/06/23 22:00 Room Air 12/06/23 21:57 PG Care Time/CCT Total # of Minutes Spent Total Time Spent with Patient: Total time spent is greater than 50% in coordination of care (as documented) at patient's floor/unit and/or counseling patient: Coding Level of Care Code 66817 SUB INP/OBS CARE 2/35MIN Diagnoses Gross hematuria R31.0 Ureteral stent present Z96.0 Acute renal failure N17.9 Abdominal pain R10.9
--- NOTE | 2023-12-07 10:17 | Nephrology Consultation ---
Date of Consultation December 07, 2023 Assessment & Plan (1) FLETCHER (acute kidney injury): Slight FLETCHER with rising creat from 0.9 to 1.7 over 3 days in the setting of Afibb with RVR as well as pauses. All of this does affect renal perfusion. making urine and BP is fine now. creat is not going to improve unless we have adequate control of HR. However she does not iv fluid and will stop that. higher risk of CHF with that. rising creat could be reflection of Hemodynamic insult few days back. follow renal panel daily. (2) Hematuria: (3) Ureteral stent present: h/o recurrent Kidney stone and S/p Ureteral Stent placement about 2 weeks bag and currently has gross hematuria. Urology following. She does not want hernandez. No acute findings on the CT report as per urology History of Present Illness Reason for Consultation: FLETCHER Attending Physician: Nancy Mason MD History of Present Illness 63/F with paroxysmal atrial fibrillation anticoagulated on Eliquis, tachybradycardia syndrome, HTN, hypothyroidism, obesity, recurrent kidney stones presented to ER 12/04/2023 with complaint of right-sided abdominal pain. She had recent admission [facility] 11/08/2023-11/13/2023 for left ureteral calculus s/p left ureteral stent placement 11/08/2023 and did have FLETCHER with peak creat of 2.3 but by discharge down to 1 . Also on presentation this time had creat of 0.9 but since then has gone up to 1.7 now over 3 days. During this time she has had issues with Afibb/tachy brennan/ pauses. Also she had sore throat, cough productive clear sputum, generalized weakness, dizziness with standing x 4 days prior to admission. Workup included + COVID-19, unremarkable CT head, CT abdomen pelvis showed left ureteral stent in place and bilateral renal stones without other acute etiology. She does report intermittent right-sided abdominal pain over the past several weeks. Patient denies left abdominal or flank pain. She reports has continued hematuria since stent placement in October. Reports chronic urinary incontinence and frequency. Since admission has been seen by urology ( No acute intervention needed) as we ll as Cardiology ( rate control through meds). She is currently getting NS. Able to eat and drink normally. c/o issues with Purewick but does not want hernandez. ROS---12 systems reviewed and is otherwise negative Physical Exam Physical Exam: General: no distress, +obese Head: normocephalic, atraumatic Eyes: PERRL, EOM's intact, conjunctiva non-injected, anicteric ENT: normal inspection external ears, nose, mucous membranes moist Neck: supple, No JVD Lungs: clear, no respiratory distress CV: Irregularly irregular, rate 80, Trace pretibial edema appreciated Abd: Obese, soft, non-tender , no CVA tenderness to percussion Ext: no cyanosis, no calf tenderness Neuro: A&O x 3, no focal deficits noted, normal affect Skin: warm, dry Allergies Allergy/AdvReac Type Severity Reaction Status Date / Time lisinopril Allergy Intermediate Cough Verified 12/05/23 12:35 nickel Allergy itching Verified 12/24/22 08:43 simvastatin AdvReac Unknown Muscle Pain Verified 12/05/23 12:35 baby oil Allergy Intermediate Rash Uncoded 12/24/22 08:43 Home Medications Medication Instructions Recorded Confirmed Type apixaban 5 mg tablet (Eliquis) 5 mg PO BID #60 tabs 10/23/21 12/05/23 Rx levothyroxine 100 mcg tablet 100 mcg PO QAM 10/23/21 12/05/23 History (Euthyrox) alendronate 70 mg tablet 70 mg PO WK 05/15/22 12/05/23 History hydrochlorothiazide 25 mg tablet 25 mg PO QAM 05/16/22 12/05/23 History hydroxyzine HCl 25 mg tablet 25 - 50 mg (1 - 2 x 25 mg) PO Q6H 07/10/22 12/05/23 Rx PRN itching #20 tabs sotalol 80 mg tablet 40 mg PO BID17 11/08/23 12/05/23 History valacyclovir 1 gram tablet See Rx Instructions .Route 11/08/23 12/05/23 History (Valtrex) .COMPLEX PRN Cold Sores diclofenac sodium 1 % topical gel 4 g EXT Q6H PRN knee pain #100 11/11/23 12/05/23 Rx (Voltaren Arthritis Pain) grams gabapentin 300 mg capsule 300 mg PO HS #30 caps 11/11/23 12/05/23 Rx miconazole nitrate 2 % topical 1 applic EXT BID PRN fungal 11/11/23 12/05/23 Rx powder (Desenex) infection #85 grams ergocalciferol (vitamin D2) 1,250 50,000 unit PO .weekly 6 weeks #6 11/13/23 12/05/23 Rx mcg (50,000 unit) capsule (Vitamin caps D2) atorvastatin 40 mg tablet 40 mg PO DAILY 12/05/23 12/05/23 History benzonatate 100 mg capsule 100 mg PO TID PRN cough #20 caps 12/05/23 12/05/23 Rx losartan 50 mg tablet 50 mg PO DAILY 12/05/23 12/05/23 History nirmatrelvir 300 mg (150 mg See Rx Instructions PO .COMPLEX 12/05/23 12/05/23 Rx x2)-ritonavir 100 mg tablet,dose #30 tabs pack (Paxlovid) Patient History Medical History Urolithiasis Morbid obesity with BMI of 60.0-69.9, adult Frequent urination at night Pre-diabetes Neuropathy Atrial fibrillation on Eliquis Cardiac murmur Follows with Dr. 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 Beliefs That Will Affect Care: None Current Living Situation: Significant Other Current Living Situation Comment: Home with Fiyandele How many Children do You have: 0 Other Information That Helps Us Care for You: No Feels Safe at Home: Yes Safety Concerns: Feels Safe At This Time Assistive Devices: Cane and Walker Results & Data Vital Signs (Past 12 Hours) Vital Signs Temp Pulse Pulse Pulse Resp BP Pulse Ox 12/07/23 07:45 77 12/07/23 07:45 12/07/23 07:38 36.2 C L 77 16 148/71 H 95 12/07/23 02:51 36.6 C 63 18 118/75 94 12/06/23 23:00 36.5 C 75 20 158/84 H 93 O2 Del Method 12/07/23 07:45 12/07/23 07:45 Room Air 12/07/23 07:38 Room Air 12/07/23 02:51 Room Air 12/06/23 23:00 Room Air Laboratory Results reviewed Diagnostic Findings reviewed.
[2023-12-07 13:37] LABS: Appearance Urine Turbid (Clear); Color Urine Brown; Specific Gravity Urine 1.004 (1.000-1.030)
[2023-12-07 13:44] LABS: Bacteria Urine 1+ (Negative); Hyaline Casts Urine 0-5 /lpf (0-5); RBC Urine >30 /hpf (0-4)
--- NOTE | 2023-12-07 17:29 | Cardiology Progress Note ---
Date of Service December 07, 2023 Assessment & Plan (1) Atrial fibrillation with rapid ventricular response: (2) COVID-19: (3) Morbid obesity with BMI of 60.0-69.9, adult: Plan -Sotalol on hold favoring metoprolol tartrate in setting of acute kidney injury -Continue diltiazem infusion -At present, recommend continuing Eliquis for stroke prophylaxis despite hematuria. Monitor INR. -Continue dexamethasone, supportive care for SARS-CoV-2 illness Admission and Anticipated Discharge Date Admission Date: December 05, 2023 Subjective Patient seen in cardiology follow-up. Sitting in bed, still not quite feeling back to herself. Danielle catheter in place, with noted gross hematuria. Remains in atrial fibrillation with rate controlled in the 80s. Diltiazem infusion 5 mg/h. Physical Exam Constitutional: + ill appearing and + obese Respiratory: no labored breathing Cardiovascular: Rate/Rhythm: + tachycardic and + irregularly irregular Heart Sounds: no murmur Extremities: no edema Gastrointestinal (Abdomen): normal bowel sounds, soft, nontender, no hepatosplenomegaly Neurologic: PERRL, EOMI, accommodation nl, no face palsy, no dysarthria Results & Data Vital Signs (Past 12 Hours) Vital Signs Temp Pulse Pulse Resp BP Pulse Ox O2 Del Method 12/07/23 15:20 36.2 C L 66 14 153/85 H 95 Room Air 12/07/23 15:11 90 12/07/23 13:03 36.5 C 68 16 155/83 H 94 Room Air 12/07/23 07:45 77 12/07/23 07:45 Room Air 12/07/23 07:38 36.2 C L 77 16 148/71 H 95 Room Air
--- NOTE | 2023-12-07 19:14 | Hospitalist Progress Note ---
Date of Service December 07, 2023 Assessment & Plan (1) Atrial fibrillation with rapid ventricular response: (2) Elevated troponin: (3) COVID-19: (4) Hypoxia: (5) FLETCHER (acute kidney injury): (6) Abdominal pain: (7) Urolithiasis: (8) Generalized weakness: (9) Tachycardia-bradycardia syndrome: (10) Hypertension: (11) HLD (hyperlipidemia): (12) Hypothyroidism: (13) Morbid obesity with BMI of 60.0-69.9, adult: Plan Patient is a 63yoF with PMHx significant for paroxysmal atrial fibrillation anticoagulated on Eliquis, tachybradycardia syndrome refusing pacemaker, HTN, HLD, hypothyroidism, obesity, obstructive uropathy s/p L uretal stent placement on 11/08 admitted with R sided abdominal pain, FLETCHER and atrial fibrillation with RVR in the setting of a COVID infection. Atrial fibrillation with rapid ventricular response Presented with R abd pain, found to be in a fib with RVR Usually on sotalol 40mg BID with Eliquis for anticoagulation for PAF. Had not taken her AM dose of sotalol. On admission, P: 147, RR: 19, BP 111/71. K 3.8, Magnesium: 2.0, TSH: 5.9 T4 0.98 EKG on admission: A-fib RVR, rate 143 Patient denied chest pain, palpitations, shortness of breath. Dizziness reported with standing. In ER received a total of 15mg of IV Lopressor. Heart rate improved from 140s down to 120s. Patient given her morning dose of sotalol in the ER Started on a diltiazem drip per cardiology recommendations Cardiology consulted- appreciate recs. Recommended: -holding home sotalol in setting of FLETCHER, transitioned to PO metoprolol tartrate 25mg QID with diltiazem drip -Continue Eliquis 5mg BID for anticoagulation -deferring repeat echo 12/06- pt with noted pauses, diltiazem drip rate decreased, heart rates remain controlled. Appreciate cardiology recs for further management 12/07-HR remains controlled on diltiazem drip and PO metoprolol regimen, cards advising to continue with anticoagulation, INR monitoring. Elevated troponin Initial troponin 54. Downtrended to 41.3 EKG with noted atrial fibrillation with RVR Likely elevated secondary to demand ischemia from rapid A-fib, doubt ACS COVID-19 Acute hypoxic respiratory failure Pt with sore throat, cough, congestion that started 3-4 days prior to arrival In ER 89% on room air up to 95% on 3L nasal cannula COVID-19 positive on 12/04/22 Chest xray with no acute changes In ER given dexamethasone 6 mg IV, continue daily Airborne isolation Supplemental oxygen as needed, wean as tolerated Incentive spirometry, flutter valve Further supportive treatment as needed FLETCHER (acute kidney injury) Cr: 1.6 on admission, was 0.94 the day before Received NSS 2L, Cr slightly increased at 1.69 Continued gentle diuresis with NSS @70 for 2 bags. However FLETCHER persists, Nephrology consult placed on 12/07, appreciate recs Monitor fluid balance Avoid contrast/nephrotoxic meds Monitor renal function Abdominal pain Hx of obstructive uropathy s/p stent placement Patient with reported right-sided abdominal pain that started morning of admission. 12/04/2023 (day before admission), CT abdomen pelvis noted LEFT-sided ureteral stent in place, bilateral intrarenal stones, proximal left ureteral stone, diverticulosis with no signs of diverticulitis. No acute appendicitis or bowel obstruction. No evidence of visceral or intra-abdominal injury. No acute fracture. Pain control Urology consult placed for hematuria (see below) but appreciate recs for this as well. Hematuria Anemia Pt with gross blood in urinary canister near bed Hgb in 9 range currently, was 11.4 on 11/08, appears her baseline is ~11 Appears anemia microcytic, MCV 88 Iron level 44 Had uncollected UA from the ED Repeat UA order placed- UA with hematuria and pending urine Cx Urology consult- appreciate recs -per cardiology and urology, continue with anticoagulation at this time Generalized weakness Ambulates with cane at baseline. Increased generalized weakness over the past several days. Likely secondary to underlying infection with COVID-19 12/04/2023: CT head: No acute intracranial abnormality Fall precautions PT/OT eval-recommending home with s/o support and HH services Tachycardia-bradycardia syndrome History of tachybrady syndrome. Follows with cardiology and EP. In past has refused pacemaker Monitor on telemetry Hypertension Hold losartan and HCTZ with current FLETCHER Currently on metoprolol tartrate 25mg QID with diltiazem drip, monitor BPs HLD (hyperlipidemia) Continue atorvastatin Hypothyroidism Continue levothyroxine Morbid obesity with BMI of 60.0-69.9, adult BMI: 67 Encourage weight loss Diet: HH DVT Prophylaxis: On Eliquis CODE STATUS: Full code Dispo: PT/OT recommending home with s/o support and HH services Admission and Anticipated Discharge Date Admission Date: December 05, 2023 Subjective Pt seen while attempting to void. States that there was difficulty placing the urinary catheter in. States she "has been bleeding everywhere" indicating bloody urine on seat and in urinary canister. States that pain better controlled today. States she did not sleep well overnight. Review of Systems Review of Systems: All systems reviewed & are unremarkable except as noted in Subjective Physical Exam Physical Exam: General: Sleepy, oriented. No acute distress, sitting in chair Psych: Appropriate mood and affect Neuro: Drowsy HEENT: NC/AT CV: Heart sounds faint, irregular Resp: no increased effort of breathing Abdomen: Soft, nontender Extremities: edema in lower extremities bilaterally. Results & Data Results & Data Vital Signs (Past 12 Hours) Vital Signs Temp Pulse Pulse Pulse Resp BP Pulse Ox 12/07/23 07:45 77 12/07/23 07:45 12/07/23 07:38 36.2 C L 77 16 148/71 H 95 12/07/23 02:51 36.6 C 63 18 118/75 94 O2 Del Method 12/07/23 07:45 12/07/23 07:45 Room Air 12/07/23 07:38 Room Air 12/07/23 02:51 Room Air
[2023-12-08] MEDS: ONDANSETRON INJ 2 MG/ML 2 ML VIAL IV STA (02:11)
[2023-12-08] MEDS: diphenhydrAMINE Capsule 25 MG CAP PO ONE (02:11)
[2023-12-08 07:10] LABS: Hematocrit (blood only) 26.9 % (37.0-47.0); Hemoglobin 8.3 g/dl (12.0-16.0); Mean Corpuscular Hemoglobin 27.1 pg (25.0-34.0); Mean Corpuscular Hgb Conc 30.9 g/dL (32.0-36.0); Mean Corpuscular Volume 87.9 fL (80.0-100.0); Mean Platelet Volume 9.7 fL (9.4-12.4); Nucleated RBC # (auto) 0.02 K/uL (0.00-0.12); Nucleated RBC % (auto) 0.2 %; Platelet Count 276 K/uL (130-400); RDW Standard Deviation 48.4 fL (36.4-46.3); Red Blood Count 3.06 M/uL (4.20-5.40); White Blood Count 10.96 K/ul (4.8-10.8)
[2023-12-08 07:40] LABS: BUN Creatinine Ratio 35.4 (10-20); Calcium 7.8 mg/dl (8.6-10.3); Creatinine Clr Calc Pharmacy 62.8 ml/min; Est GFR (African American) 43.9 ml/min; Est GFR (Non-African American) 37.9 ml/min; Magnesium 2.2 mg/dl (1.7-2.4); Phosphorus 2.6 mg/dl (2.5-4.9); Potassium 4.2 mmol/L (3.5-5.1)
[2023-12-08] MEDS: ERGOCALCIFEROL 1250 MCG (50,000 UNITS) CAP PO SCH (08:02)
[2023-12-08] MEDS: POLYETHYLENE (MIRALAX) 17 GM PACK PO PRN (08:12)
[2023-12-08 08:25] LABS: INR 1.1 (0.9-1.1); Prothrombin Time 11.9 Seconds (9.0-12.0)
--- NOTE | 2023-12-08 09:32 | Urology Progress Note ---
Date of Service December 08, 2023 Assessment & Plan (1) Gross hematuria: (2) Ureteral stent present: (3) Acute renal failure: Plan 63yo/F who was recently admitted with a ureteral stone and underwent left stent placement 11/08/2023. She presented to the ED 12/05/23 with right sided abdominal pain and is now admitted with Covid-19, AFib RVR, and FLETCHER. Urology was consulted for gross hematuria. - Afebrile, vitals stable. - Labs today reviewed -WBC 10.96, hemoglobin 8.3, creatinine 1.71- 1.47 today. - Urine culture with more than 3 types of organisms, all high counts. - Danielle catheter placed yesterday and is currently draining appropriately. Hematuria appears to be improving - urine is light red with some sediment today. Continue to monitor. - Hematuria is likely secondary to stent in the setting of chronic anticoagulation. - Maintain catheter. OK to hand irrigate as needed for clots, retention, suprapubic pain. - Anticoagulation per primary team/cardiology. Urology can manage hematuria as needed. - Continue supportive care and pain management. - Continue to trend labs. - Will arrange outpatient follow-up with our service. - Urology will follow peripherally. Please call with any further question or concerns. Admission and Anticipated Discharge Date Admission Date: December 05, 2023 Subjective Pt examined at bedside this AM. No acute distress. On Covid precautions. Feeling better today. Danielle cath was placed yesterday, currently draining light red urine in tubing with some sediment/small clots. Reports some back pain this morning. Denies flank or suprapubic pain. Denies f/c/n/v. Review of Systems Constitutional: as per Subjective / HPI Genitourinary: as per Subjective / HPI Physical Exam Constitutional: + obese; no acute distress Respiratory: no respiratory distress and no labored breathing Neurologic: awake Psychiatric: Orientation: alert and oriented x 3 Genitourinary: Danielle intact, draining light red urine with sediment and a few small clots in tubing Results & Data Vital Signs (Past 12 Hours) Vital Signs Temp Pulse Pulse Resp BP Pulse Ox O2 Del Method 12/08/23 07:37 36.4 C L 86 19 124/72 93 Room Air 12/08/23 02:35 36.6 C 84 18 131/80 94 Room Air 12/07/23 22:50 36.9 C 91 H 18 137/66 92 Room Air 12/07/23 21:55 86 PG Care Time/CCT Total # of Minutes Spent Total Time Spent with Patient: Total time spent is greater than 50% in coordination of care (as documented) at patient's floor/unit and/or counseling patient: Coding Level of Care Code 88557 SUB INP/OBS CARE 2/35MIN Diagnoses Gross hematuria R31.0 Ureteral stent present Z96.0 Acute renal failure N17.9
--- NOTE | 2023-12-08 10:16 | Hospitalist Progress Note ---
Date of Service December 08, 2023 Assessment & Plan (1) Atrial fibrillation with rapid ventricular response: (2) Elevated troponin: (3) COVID-19: (4) Hypoxia: (5) Abdominal pain: (6) Urolithiasis: (7) Generalized weakness: (8) Tachycardia-bradycardia syndrome: (9) Hypertension: (10) HLD (hyperlipidemia): (11) Hypothyroidism: (12) Morbid obesity with BMI of 60.0-69.9, adult: Plan Patient is a 63yoF with PMHx significant for paroxysmal atrial fibrillation anticoagulated on Eliquis, tachybradycardia syndrome refusing pacemaker, HTN, HLD, hypothyroidism, obesity, obstructive uropathy s/p L uretal stent placement on 11/08 admitted with R sided abdominal pain, FLETCHER and atrial fibrillation with RVR in the setting of a COVID infection. Atrial fibrillation with rapid ventricular response Presented with R abd pain, found to be in a fib with RVR Usually on sotalol 40mg BID with Eliquis for anticoagulation for PAF. Had not taken her AM dose of sotalol. On admission, P: 147, RR: 19, BP 111/71. K 3.8, Magnesium: 2.0, TSH: 5.9 T4 0.98 EKG on admission: A-fib RVR, rate 143 Patient denied chest pain, palpitations, shortness of breath. Dizziness reported with standing. In ER received a total of 15mg of IV Lopressor. Heart rate improved from 140s down to 120s. Patient given her morning dose of sotalol in the ER Started on a diltiazem drip per cardiology recommendations Cardiology consulted- appreciate recs. Recommended: -holding home sotalol in setting of FLETCHER, transitioned to PO metoprolol tartrate 25mg QID with diltiazem drip -Continue Eliquis 5mg BID for anticoagulation -deferring repeat echo 12/06- pt with noted pauses, diltiazem drip rate decreased, heart rates remain controlled. Appreciate cardiology recs for further management 12/07-HR remains controlled on diltiazem drip and PO metoprolol regimen, cards advising to continue with anticoagulation, INR monitoring. 12/08- HR remains controlled on diltiazem drip and PO metoprolol regimen, on anticoagulation, INR wnl. Appreciate cardiology recs Elevated troponin Initial troponin 54. Downtrended to 41.3 EKG with noted atrial fibrillation with RVR Likely elevated secondary to demand ischemia from rapid A-fib, doubt ACS COVID-19 Acute hypoxic respiratory failure Pt with sore throat, cough, congestion that started 3-4 days prior to arrival In ER 89% on room air up to 95% on 3L nasal cannula COVID-19 positive on 12/04/22 Chest xray with no acute changes In ER given dexamethasone 6 mg IV, continue daily x 5 days Airborne isolation Supplemental oxygen as needed, wean as tolerated Incentive spirometry, flutter valve Further supportive treatment as needed FLETCHER (acute kidney injury) Cr: 1.6 on admission, was 0.94 the day before Received NSS 2L, Cr slightly increased at 1.69 Received gentle diuresis with NSS @70 for 2 bags. However FLETCHER persists, Nephrology consult placed on 12/07, appreciate recs Monitor fluid balance Avoid contrast/nephrotoxic meds Monitor renal function 12/08- Cr improved at 1.4 today. Appreciate nephrology recs Abdominal pain Hx of obstructive uropathy s/p stent placement Patient with reported right-sided abdominal pain that started morning of admission. 12/04/2023 (day before admission), CT abdomen pelvis noted LEFT-sided ureteral stent in place, bilateral intrarenal stones, proximal left ureteral stone, diverticulosis with no signs of diverticulitis. No acute appendicitis or bowel obstruction. No evidence of visceral or intra-abdominal injury. No acute fracture. Pain control Urology consult placed for hematuria (see below) but appreciate recs for this as well. Hematuria Anemia Pt with gross blood in urinary canister near bed Hgb in 8-9 range currently, was 11.4 on 11/08, appears her baseline is ~11 Appears anemia microcytic, MCV 88 Iron level 44 Had uncollected UA from the ED Repeat UA order placed- UA with hematuria and urine Cx with no significant growth. WBC likely elevated in the setting of steroid use. Will defer on abx at this time. Urology consult- appreciate recs -per cardiology and urology, continue with anticoagulation at this time - 12/08- hernandez in, hand irrigate for clots retention, suprapubic pain Generalized weakness Ambulates with cane at baseline. Increased generalized weakness over the past several days. Likely secondary to underlying infection with COVID-19 12/04/2023: CT head: No acute intracranial abnormality Fall precautions PT/OT eval-recommending home with s/o support and HH services Tachycardia-bradycardia syndrome History of tachybrady syndrome. Follows with cardiology and EP. In past has refused pacemaker Monitor on telemetry Hypertension Hold losartan and HCTZ with current FLETCHER Currently on metoprolol tartrate 25mg QID with diltiazem drip, monitor BPs HLD (hyperlipidemia) Continue atorvastatin Hypothyroidism Continue levothyroxine Morbid obesity with BMI of 60.0-69.9, adult BMI: 67 Encourage weight loss Diet: HH DVT Prophylaxis: On Eliquis CODE STATUS: Full code Dispo: PT/OT recommending home with s/o support and HH services Admission and Anticipated Discharge Date Admission Date: December 05, 2023 Subjective Pt was seen while laying in bed. States she was taking miralax to help with her bowel movements. Now has hernandez in, draining dark red/brown urine. Review of Systems Review of Systems: All systems reviewed & are unremarkable except as noted in Subjective Physical Exam Physical Exam: General: Alert, oriented. No acute distress Psych: Appropriate mood and affect Neuro:Some difficulty with movements and weakness HEENT: NC/AT CV: Heart sounds faint, irregular Resp: no increased effort of breathing Abdomen: Soft, nontender Extremities: edema in lower extremities bilaterally. Results & Data Results & Data Vital Signs (Past 12 Hours) Vital Signs Temp Pulse Resp BP Pulse Ox O2 Del Method 12/08/23 07:37 36.4 C L 86 19 124/72 93 Room Air 12/08/23 02:35 36.6 C 84 18 131/80 94 Room Air 12/07/23 22:50 36.9 C 91 H 18 137/66 92 Room Air
--- NOTE | 2023-12-08 16:59 | Cardiology Progress Note ---
Date of Service December 08, 2023 Assessment & Plan (1) Atrial fibrillation with rapid ventricular response: (2) COVID-19: (3) Morbid obesity with BMI of 60.0-69.9, adult: (4) Gross hematuria: Plan -Sotalol on hold favoring metoprolol tartrate in setting of acute kidney injury -Continue diltiazem infusion -At present, recommend continuing Eliquis for stroke prophylaxis despite hematuria. Monitor INR. -Continue dexamethasone, supportive care for SARS-CoV-2 illness -Will likely wean / discontinue diltiazem on 12/09/22. Admission and Anticipated Discharge Date Admission Date: December 05, 2023 Subjective Pt seen in cardiology follow up. Sitting in bedside chair. Still with general aches and pains. No symptoms from a cardiac perspective. Gross hematuria noted. Danielle catheter in place. Telemetry reveals AF in the 70-80s. Physical Exam Constitutional: + ill appearing and + obese Respiratory: no labored breathing Cardiovascular: Rate/Rhythm: + tachycardic and + irregularly irregular Heart Sounds: no murmur Extremities: no edema Gastrointestinal (Abdomen): normal bowel sounds, soft, nontender, no hepatosplenomegaly Neurologic: PERRL, EOMI, accommodation nl, no face palsy, no dysarthria Results & Data Vital Signs (Past 12 Hours) Vital Signs Temp Pulse Pulse Resp BP Pulse Ox O2 Del Method 12/08/23 11:35 36.6 C 73 19 136/71 92 Room Air 12/08/23 11:32 Room Air 12/08/23 07:41 85 12/08/23 07:37 36.4 C L 86 19 124/72 93 Room Air
[2023-12-09 07:46] LABS: Hematocrit (blood only) 27.8 % (37.0-47.0); Hemoglobin 8.6 g/dl (12.0-16.0); Mean Corpuscular Hemoglobin 27.1 pg (25.0-34.0); Mean Corpuscular Hgb Conc 30.9 g/dL (32.0-36.0); Mean Corpuscular Volume 87.7 fL (80.0-100.0); Nucleated RBC # (auto) 0.04 K/uL (0.00-0.12); Nucleated RBC % (auto) 0.3 %; Platelet Count 283 K/uL (130-400); RDW Standard Deviation 48.6 fL (36.4-46.3); Red Blood Count 3.17 M/uL (4.20-5.40); White Blood Count 13.53 K/ul (4.8-10.8)
[2023-12-09 07:53] LABS: Calcium 8.1 mg/dl (8.6-10.3); Creatinine Clr Calc Pharmacy 78.5 ml/min; Est GFR (African American) 56.1 ml/min; Est GFR (Non-African American) 48.4 ml/min; Magnesium 2.2 mg/dl (1.7-2.4); Phosphorus 2.8 mg/dl (2.5-4.9); Potassium 4.3 mmol/L (3.5-5.1)
[2023-12-09] MEDS ORDERED: 0.2 MICRON FILTER SET 1 EACH IV STA (07:55)
[2023-12-09] MEDS ORDERED: STAT IV Infusion **Titration per Protocol STA (07:55)
[2023-12-09] MEDS ORDERED: AMIODARONE IV BOLUS & DRIP IV STA (07:55)
--- NOTE | 2023-12-09 07:58 | Communication Note ---
Date of Service: December 09, 2023 Telemetry reviewed . Rate controlled AF overnight. Most recent dose of sotalol was on 12/05. Stop diltiazem and transition to amiodarone infusion. Carolyn Arreola DO
[2023-12-09] MEDS: AMIODARONE / D5W 150 MG/100 ML BAG IV STA (08:09)
[2023-12-09] MEDS: AMIODARONE / D5W 360 MG/200 ML BAG IV ONE (08:15)
[2023-12-09] MEDS: LIDOCAINE 5% 1 PATCH TD SCH (09:49)
[2023-12-09] MEDS: HYDROmorphone INJ 0.5 MG/0.5 ML SYR IV STA (09:49)
[2023-12-09] MEDS: ACETAMINOPHEN 325 MG TAB PO PRN (11:46)
[2023-12-09] MEDS ORDERED: oxyCODONE HCL IR 5 MG TAB (IMMEDIATE RELEASE) PO PRN (11:59)
--- NOTE | 2023-12-09 12:26 | Cardiology Progress Note ---
Date of Service December 09, 2023 Assessment & Plan (1) Atrial fibrillation with rapid ventricular response: (2) COVID-19: (3) Morbid obesity with BMI of 60.0-69.9, adult: (4) Gross hematuria: Plan -Sotalol on hold favoring metoprolol tartrate in setting of acute kidney injury -Now that sotalol has been on hold since 12/05/23 , will discontinue IV dilitazem and start amiodarone infusion. -Pt has not tolerated AF in the past. -At present, recommend continuing Eliquis for stroke prophylaxis despite hematuria. Monitor Hgb /Hct -Continue dexamethasone, supportive care for SARS-CoV-2 illness Admission and Anticipated Discharge Date Admission Date: December 05, 2023 Kiet Landon is seen in follow up of atrial fibrillation. Her is visiting , who has apparently also tested positive for COVID, however, he is doing well. Notes left hip pain. No chest pain or shortness of breath. Telemetry overnight today reveals AF in the 80s. Physical Exam Constitutional: + ill appearing and + obese Respiratory: no labored breathing Cardiovascular: Rate/Rhythm: + tachycardic and + irregularly irregular Heart Sounds: no murmur Extremities: no edema Gastrointestinal (Abdomen): normal bowel sounds, soft, nontender, no hepatosplenomegaly Neurologic: PERRL, EOMI, accommodation nl, no face palsy, no dysarthria Results & Data Vital Signs (Past 12 Hours) Vital Signs Temp Pulse Pulse Resp BP Pulse Ox O2 Del Method 12/09/23 11:56 36.4 C L 74 18 147/89 H 96 Room Air 12/09/23 10:30 76 12/09/23 10:30 Room Air 12/09/23 08:24 76 123/86 12/09/23 07:43 36.5 C 71 18 120/66 94 Room Air 12/09/23 02:41 36.3 C L 59 L 140/83 95 Room Air Laboratory Results CBC 12/09/23 Range/Units 07:03 WBC 13.53 H (4.8-10.8) K/ul RBC 3.17 L (4.20-5.40) M/uL Hgb 8.6 L (12.0-16.0) g/dl Hct 27.8 L (37.0-47.0) % Plt Count 283 (130-400) K/uL Comprehensive Metabolic Panel 12/09/23 Range/Units 07:03 Sodium 133 L (136-145) mmol/L Potassium 4.3 (3.5-5.1) mmol/L Chloride 103 (98-107) mmol/L Carbon Dioxide 22 (21-32) mmol/L BUN 48 H (6-23) mg/dl Creatinine 1.20 (0.6-1.2) mg/dl Glucose 133 H (70-99(Fasting)) mg/dl Calcium 8.1 L (8.6-10.3) mg/dl
[2023-12-09] MEDS: oxyCODONE HCL IR 5 MG TAB (IMMEDIATE RELEASE) PO PRN (13:04)
[2023-12-09] MEDS: AMIODARONE / D5W 360 MG/200 ML BAG IV SCH (14:44)
--- NOTE | 2023-12-09 17:24 | Hospitalist Progress Note ---
Date of Service December 09, 2023 Assessment & Plan (1) Atrial fibrillation with rapid ventricular response: (2) Elevated troponin: (3) COVID-19: (4) Hypoxia: (5) Abdominal pain: (6) Urolithiasis: (7) Generalized weakness: (8) Tachycardia-bradycardia syndrome: (9) Hypertension: (10) HLD (hyperlipidemia): (11) Hypothyroidism: (12) Morbid obesity with BMI of 60.0-69.9, adult: Plan Patient is a 63yoF with PMHx significant for paroxysmal atrial fibrillation anticoagulated on Eliquis, tachybradycardia syndrome refusing pacemaker, HTN, HLD, hypothyroidism, obesity, obstructive uropathy s/p L uretal stent placement on 11/08 admitted with R sided abdominal pain, FLETCHER and atrial fibrillation with RVR in the setting of a COVID infection. Atrial fibrillation with rapid ventricular response Presented with R abd pain, found to be in a fib with RVR Usually on sotalol 40mg BID with Eliquis for anticoagulation for PAF. Had not taken her AM dose of sotalol. On admission, P: 147, RR: 19, BP 111/71. K 3.8, Magnesium: 2.0, TSH: 5.9 T4 0.98 EKG on admission: A-fib RVR, rate 143 Patient denied chest pain, palpitations, shortness of breath. Dizziness reported with standing. In ER received a total of 15mg of IV Lopressor. Heart rate improved from 140s down to 120s. Patient given her morning dose of sotalol in the ER Started on a diltiazem drip per cardiology recommendations Cardiology consulted- appreciate recs. Recommended: -holding home sotalol in setting of FLETCHER, transitioned to PO metoprolol tartrate 25mg QID with diltiazem drip -Continue Eliquis 5mg BID for anticoagulation -deferring repeat echo 12/06- pt with noted pauses, diltiazem drip rate decreased, heart rates remain controlled. Appreciate cardiology recs for further management 12/07-HR remains controlled on diltiazem drip and PO metoprolol regimen, cards advising to continue with anticoagulation, INR monitoring. 12/08- HR remains controlled on diltiazem drip and PO metoprolol regimen, on anticoagulation, INR wnl. Appreciate cardiology recs 12/09- Transitioned to amiodarone drip and PO metoprolol regimen, continue eliquis Hematuria Anemia Pt with gross blood in urinary canister near bed previously Hgb in 8-9 range currently, was 11.4 on 11/08, appears her baseline is ~11 Appears anemia microcytic, MCV 88 Iron level 44 Had uncollected UA from the ED Repeat UA order placed- UA with hematuria and urine Cx with no significant growth. WBC likely elevated in the setting of steroid use. Will defer on abx at this time. Urology consult- appreciate recs -per cardiology and urology, continue with anticoagulation at this time - 12/08- hernandez in, hand irrigate for clots retention, suprapubic pain Elevated troponin Initial troponin 54. Downtrended to 41.3 EKG with noted atrial fibrillation with RVR Likely elevated secondary to demand ischemia from rapid A-fib, doubt ACS COVID-19 Acute hypoxic respiratory failure Pt with sore throat, cough, congestion that started 3-4 days prior to arrival In ER 89% on room air up to 95% on 3L nasal cannula COVID-19 positive on 12/04/22 Chest xray with no acute changes In ER given dexamethasone 6 mg IV, continue daily x 5 days Airborne isolation Supplemental oxygen as needed, wean as tolerated Incentive spirometry, flutter valve Further supportive treatment as needed FLETCHER (acute kidney injury) Cr: 1.6 on admission, was 0.94 the day before Received NSS 2L, Cr slightly increased at 1.69 Received gentle diuresis with NSS @70 for 2 bags. However FLETCHER persists, Nephrology consult placed on 12/07, appreciate recs Monitor fluid balance Avoid contrast/nephrotoxic meds Monitor renal function 12/08- Cr improved at 1.4 today. Appreciate nephrology recs 12/09- Cr wnl, resolved. Abdominal pain Hx of obstructive uropathy s/p stent placement Patient with reported right-sided abdominal pain that started morning of admission. 12/04/2023 (day before admission), CT abdomen pelvis noted LEFT-sided ureteral stent in place, bilateral intrarenal stones, proximal left ureteral stone, diverticulosis with no signs of diverticulitis. No acute appendicitis or bowel obstruction. No evidence of visceral or intra-abdominal injury. No acute fracture. Pain control Urology consult placed for hematuria (see below) but appreciate recs for this as well. Generalized weakness Ambulates with cane at baseline. Increased generalized weakness over the past several days. Likely secondary to underlying infection with COVID-19 12/04/2023: CT head: No acute intracranial abnormality Fall precautions PT/OT eval-recommending home with s/o support and HH services Tachycardia-bradycardia syndrome History of tachybrady syndrome. Follows with cardiology and EP. In past has refused pacemaker Monitor on telemetry Hypertension Hold losartan and HCTZ with current FLETCHER Currently on metoprolol tartrate 25mg QID with diltiazem drip, monitor BPs HLD (hyperlipidemia) Continue atorvastatin Hypothyroidism Continue levothyroxine Morbid obesity with BMI of 60.0-69.9, adult BMI: 67 Encourage weight loss Diet: HH DVT Prophylaxis: On Eliquis CODE STATUS: Full code Dispo: PT/OT recommending home with s/o support and HH services Admission and Anticipated Discharge Date Admission Date: December 05, 2023 Subjective Pt seen in the AM in room, crying out for help. Was sitting in chair at bedside. States that she was having pain in right lower back. notes that "oxycodone is not helping". Review of Systems Review of Systems: All systems reviewed & are unremarkable except as noted in Subjective Physical Exam Physical Exam: General: Alert, oriented. in distress Psych: angry mood and affect Neuro:Some difficulty with movements and weakness HEENT: NC/AT CV: Heart sounds faint, irregular Resp: no increased effort of breathing Abdomen: Soft, nontender Extremities: edema in lower extremities bilaterally. Results & Data Results & Data Vital Signs (Past 12 Hours) Vital Signs Temp Pulse Pulse Resp BP Pulse Ox O2 Del Method 12/09/23 10:30 76 12/09/23 10:30 Room Air 12/09/23 08:24 76 123/86 12/09/23 07:43 36.5 C 71 18 120/66 94 Room Air 12/09/23 02:41 36.3 C L 59 L 140/83 95 Room Air 12/08/23 23:00 36.4 C L 66 19 123/85 93 Room Air
[2023-12-10 07:07] LABS: Hematocrit (blood only) 30.4 % (37.0-47.0); Hemoglobin 9.8 g/dl (12.0-16.0); Mean Corpuscular Hemoglobin 27.6 pg (25.0-34.0); Mean Corpuscular Hgb Conc 32.2 g/dL (32.0-36.0); Mean Corpuscular Volume 85.6 fL (80.0-100.0); Mean Platelet Volume 10.3 fL (9.4-12.4); Nucleated RBC % (auto) 0.6 %; Platelet Count 347 K/uL (130-400); RDW Coefficient of Variation 15.3 % (11.5-14.5); RDW Standard Deviation 47.6 fL (36.4-46.3); Red Blood Count 3.55 M/uL (4.20-5.40)
[2023-12-10 07:46] LABS: Calcium 8.6 mg/dl (8.6-10.3); Magnesium 2.3 mg/dl (1.7-2.4); Potassium 4.4 mmol/L (3.5-5.1)
[2023-12-10 07:52] LABS: BUN Creatinine Ratio 38.9 (10-20); Basophils # (auto) 0.07 K/uL (0.00-0.20); Basophils % (auto) 0.5 %; Creatinine Clr Calc Pharmacy 74.8 ml/min; Eosinophils # (auto) 0.01 K/uL (0.00-0.50); Eosinophils % (auto) 0.1 %; Est GFR (African American) 52.9 ml/min; Est GFR (Non-African American) 45.6 ml/min; Hypochromasia Present; Immature Granulocytes # (auto) 1.12 K/uL (0.01-0.20); Immature Granulocytes % (auto) 7.3 %; Lymphocytes # (auto) 2.74 K/uL (1.20-3.40); Lymphocytes % (auto) 17.8 %; Monocytes # (auto) 1.15 K/uL (0.11-0.59); Monocytes % (auto) 7.5 %; Neutrophils # (auto) 10.31 K/uL (1.40-6.50); Neutrophils % (auto) 66.8 %; Phosphorus 2.8 mg/dl (2.5-4.9)
--- NOTE | 2023-12-10 18:54 | Communication Note ---
Date of Service: December 10, 2023 Patient seen and telemetry reviewed. Patient not examined as she was using the bedside commode at the time my assessment. Her most significant subjective complaint is constipation at present. She remains in atrial fibrillation, ventricular rates in the low 100s with minimal activity, otherwise in the 90s. Ongoing hematuria noted. Continue Eliquis for stroke prophylaxis, at present, benefits outweigh bleeding risks. Continue with metoprolol tartrate 25 mg 4 times daily, amiodarone infusion. Looking ahead, I am not certain sotalol 40 mg twice daily will be effective for her. Discharged with rate control may be most appropriate with follow-up to see if patient spontaneously converts to sinus rhythm. Does have history of borderline tachycardia-bradycardia syndrome, so caution with titrating AV lary blockers. Carolyn Arreola,
--- NOTE | 2023-12-10 19:14 | Hospitalist Progress Note ---
Date of Service December 10, 2023 Assessment & Plan (1) Atrial fibrillation with rapid ventricular response: (2) Elevated troponin: (3) COVID-19: (4) Hypoxia: (5) Abdominal pain: (6) Urolithiasis: (7) Generalized weakness: (8) Tachycardia-bradycardia syndrome: (9) Hypertension: (10) HLD (hyperlipidemia): (11) Hypothyroidism: (12) Morbid obesity with BMI of 60.0-69.9, adult: Plan Patient is a 63yoF with PMHx significant for paroxysmal atrial fibrillation anticoagulated on Eliquis, tachybradycardia syndrome refusing pacemaker, HTN, HLD, hypothyroidism, obesity, obstructive uropathy s/p L uretal stent placement on 11/08 admitted with R sided abdominal pain, FLETCHER and atrial fibrillation with RVR in the setting of a COVID infection. Atrial fibrillation with rapid ventricular response Presented with R abd pain, found to be in a fib with RVR Usually on sotalol 40mg BID with Eliquis for anticoagulation for PAF. Had not taken her AM dose of sotalol. On admission, P: 147, RR: 19, BP 111/71. K 3.8, Magnesium: 2.0, TSH: 5.9 T4 0.98 EKG on admission: A-fib RVR, rate 143 Patient denied chest pain, palpitations, shortness of breath. Dizziness reported with standing. In ER received a total of 15mg of IV Lopressor. Heart rate improved from 140s down to 120s. Patient given her morning dose of sotalol in the ER Started on a diltiazem drip per cardiology recommendations Cardiology consulted- appreciate recs. Recommended: -holding home sotalol in setting of FLETCHER, transitioned to PO metoprolol tartrate 25mg QID with diltiazem drip -Continue Eliquis 5mg BID for anticoagulation -deferring repeat echo 12/06- pt with noted pauses, diltiazem drip rate decreased, heart rates remain controlled. Appreciate cardiology recs for further management 12/07-HR remains controlled on diltiazem drip and PO metoprolol regimen, cards advising to continue with anticoagulation, INR monitoring. 12/08- HR remains controlled on diltiazem drip and PO metoprolol regimen, on anticoagulation, INR wnl. Appreciate cardiology recs 12/09- Transitioned to amiodarone drip and PO metoprolol regimen, continue eliquis 12/10- on amio drip, continue eliquis Hematuria Anemia Pt with gross blood in urinary canister near bed previously Hgb in 8-9 range currently, was 11.4 on 11/08, appears her baseline is ~11 Appears anemia microcytic, MCV 88 Iron level 44 Had uncollected UA from the ED Repeat UA order placed- UA with hematuria and urine Cx with no significant growth. WBC likely elevated in the setting of steroid use. Will defer on abx at this time. Urology consult- appreciate recs -per cardiology and urology, continue with anticoagulation at this time - 12/08- hernandez in, hand irrigate for clots retention, suprapubic pain Stable at this time Elevated troponin Initial troponin 54. Downtrended to 41.3 EKG with noted atrial fibrillation with RVR Likely elevated secondary to demand ischemia from rapid A-fib, doubt ACS COVID-19 Acute hypoxic respiratory failure Pt with sore throat, cough, congestion that started 3-4 days prior to arrival In ER 89% on room air up to 95% on 3L nasal cannula COVID-19 positive on 12/04/22 Chest xray with no acute changes In ER given dexamethasone 6 mg IV, continue daily x 5 days Airborne isolation Supplemental oxygen as needed, wean as tolerated Incentive spirometry, flutter valve Further supportive treatment as needed Stable, currently on RA FLETCHER (acute kidney injury) Cr: 1.6 on admission, was 0.94 the day before Received NSS 2L, Cr slightly increased at 1.69 Received gentle diuresis with NSS @70 for 2 bags. However FLETCHER persists, Nephrology consult placed on 12/07, appreciate recs Monitor fluid balance Avoid contrast/nephrotoxic meds Monitor renal function 12/08- Cr improved at 1.4 today. Appreciate nephrology recs 12/09- Cr wnl, resolved. 12/10- Cr slightly elevated, continue to monitor Abdominal pain Hx of obstructive uropathy s/p stent placement Patient with reported right-sided abdominal pain that started morning of admission. 12/04/2023 (day before admission), CT abdomen pelvis noted LEFT-sided ureteral stent in place, bilateral intrarenal stones, proximal left ureteral stone, diverticulosis with no signs of diverticulitis. No acute appendicitis or bowel obstruction. No evidence of visceral or intra-abdominal injury. No acute fracture. Pain control Urology consult placed for hematuria (see above) but appreciate recs for this as well. Generalized weakness Ambulates with cane at baseline. Increased generalized weakness over the past several days. Likely secondary to underlying infection with COVID-19 12/04/2023: CT head: No acute intracranial abnormality Fall precautions PT/OT eval-recommending home with s/o support and HH services Tachycardia-bradycardia syndrome History of tachybrady syndrome. Follows with cardiology and EP. In past has refused pacemaker Monitor on telemetry Hypertension Hold losartan and HCTZ with current FLETCHER Currently on metoprolol tartrate 25mg QID, monitor BPs HLD (hyperlipidemia) Continue atorvastatin Hypothyroidism Continue levothyroxine Morbid obesity with BMI of 60.0-69.9, adult BMI: 67 Encourage weight loss Constipation Docusate sodium 100mg BID PRN Miralax ordered Consider milk of magnesia Diet: HH DVT Prophylaxis: On Eliquis CODE STATUS: Full code Dispo: PT/OT recommending home with s/o support and HH services Admission and Anticipated Discharge Date Admission Date: December 05, 2023 Subjective Pt was seen sitting in chair near the bed. Stated that she could not sleep comfortably in the bed, so slept in the chair. Concerned that the mattress was too thin for her weight. Notes she was nauseous with food. no BM yet. Review of Systems Review of Systems: All systems reviewed & are unremarkable except as noted in Subjective Physical Exam Physical Exam: General: Alert, oriented. in distress Psych: angry mood and affect Neuro:Some difficulty with movements and weakness HEENT: NC/AT CV: Heart sounds faint, irregular Resp: no increased effort of breathing Abdomen: Soft, nontender Extremities: edema in lower extremities bilaterally. Results & Data Results & Data Vital Signs (Past 12 Hours) Vital Signs Temp Pulse Pulse Resp BP BP Pulse Ox 12/10/23 11:40 36.4 C L 101 H 16 119/87 95 12/10/23 07:37 36.4 C L 91 H 16 140/89 96 12/10/23 07:30 86 12/10/23 07:30 O2 Del Method 12/10/23 11:40 Room Air 12/10/23 07:37 Room Air 12/10/23 07:30 12/10/23 07:30 Room Air
[2023-12-11 06:33] LABS: Anion Gap 9 (3-11); BUN Creatinine Ratio 40.7 (10-20); Blood Urea Nitrogen 48 mg/dl (6-23); Calcium 8.2 mg/dl (8.6-10.3); Carbon Dioxide 22 mmol/L (21-32); Chloride 102 mmol/L (98-107); Creatinine Clr Calc Pharmacy 77.6 ml/min; Est GFR (African American) 57.2 ml/min; Est GFR (Non-African American) 49.4 ml/min; Glucose 123 mg/dl (70-99(Fasting)); Magnesium 2.3 mg/dl (1.7-2.4); Phosphorus 3.5 mg/dl (2.5-4.9); Sodium 133 mmol/L (136-145)
[2023-12-11 06:42] LABS: Hematocrit (blood only) 29.2 % (37.0-47.0); Mean Corpuscular Hemoglobin 26.7 pg (25.0-34.0); Mean Corpuscular Hgb Conc 30.8 g/dL (32.0-36.0); Mean Corpuscular Volume 86.6 fL (80.0-100.0); Mean Platelet Volume 10.3 fL (9.4-12.4); Nucleated RBC # (auto) 0.07 K/uL (0.00-0.12); Nucleated RBC % (auto) 0.5 %; Platelet Count 293 K/uL (130-400); RDW Coefficient of Variation 15.3 % (11.5-14.5); RDW Standard Deviation 47.7 fL (36.4-46.3); Red Blood Count 3.37 M/uL (4.20-5.40); White Blood Count 14.62 K/ul (4.8-10.8)
[2023-12-11 07:06] LABS: Basophils # (auto) 0.05 K/uL (0.00-0.20); Basophils % (auto) 0.3 %; Immature Granulocytes # (auto) 0.87 K/uL (0.01-0.20); Lymphocytes # (auto) 2.66 K/uL (1.20-3.40); Lymphocytes % (auto) 18.2 %; Monocytes # (auto) 1.11 K/uL (0.11-0.59); Monocytes % (auto) 7.6 %; Neutrophils # (auto) 9.93 K/uL (1.40-6.50); Neutrophils % (auto) 67.9 %; Polychromasia 1+
--- NOTE | 2023-12-11 11:48 | Cardiology Progress Note ---
Date of Service December 11, 2023 Assessment & Plan (1) Atrial fibrillation with rapid ventricular response: (2) COVID-19: (3) Morbid obesity with BMI of 60.0-69.9, adult: (4) Gross hematuria: Plan 63-year-old female with acute COVID infection and paroxysmal atrial fibrillation previously rhythm controlled with sotalol. Sotalol discontinued 12/05/2023 secondary to acute renal insufficiency. Treated with metoprolol tartrate with initiation of IV amiodarone 12/10/2023. Atrial fibrillation poorly tolerated in the past. Continue IV amiodarone, oral metoprolol, and Eliquis for stroke prophylaxis. Monitor hematuria and daily H&H. Treatment of COVID-19 infection as per hospitalist. Admission and Anticipated Discharge Date Admission Date: December 05, 2023 Subjective Patient seen examined the bedside. Denies chest pain or palpitations. Complains of cough and dyspnea with mild exertion. Telemetry was atrial fibrillation with rates ranging from 70-80s beats per minute. Review of Systems Review of Systems: All systems reviewed & are unremarkable except as noted in Subjective Physical Exam Constitutional: + morbidly obese Respiratory: no respiratory distress and no retractions Auscultation: + rhonchi and + wheezes (b/L) Cardiovascular: Rate/Rhythm: + irregularly irregular Heart Sounds: normal S2; no murmur Vessels: no JVD Extremities: no edema Gastrointestinal (Abdomen): Inspection/Auscultation: normal bowel sounds; abdomen not distended Percussion/Palpation: abdomen nontender, no guarding an d abdomen not rigid Neurologic: CN's II-XI intact bilaterally and moves all extremities; no focal motor deficits Results & Data Vital Signs (Past 12 Hours) Vital Signs Temp Pulse Pulse Resp BP Pulse Ox O2 Del Method 12/11/23 11:02 36.4 C L 78 18 146/72 H 97 Room Air 12/11/23 07:37 36.3 C L 65 14 138/75 97 Room Air 12/11/23 07:35 84 12/11/23 07:35 Room Air 12/11/23 03:00 36.3 C L 65 18 130/60 97 Room Air Laboratory Results CBC 12/11/23 Range/Units 05:29 WBC 14.62 H (4.8-10.8) K/ul RBC 3.37 L (4.20-5.40) M/uL Hgb 9.0 L (12.0-16.0) g/dl Hct 29.2 L (37.0-47.0) % Plt Count 293 (130-400) K/uL Neut # (Auto) 9.93 H (1.40-6.50) K/uL Lymph # (Auto) 2.66 (1.20-3.40) K/uL [facility] # (Auto) 1.11 H (0.11-0.59) K/uL Eos # (Auto) 0.00 (0.00-0.50) K/uL Baso # (Auto) 0.05 (0.00-0.20) K/uL Comprehensive Metabolic Panel 12/11/23 12/11/23 Range/Units 05:29 07:21 Sodium 133 L (136-145) mmol/L Potassium TNP 4.4 Chloride 102 (98-107) mmol/L Carbon Dioxide 22 (21-32) mmol/L BUN 48 H (6-23) mg/dl Creatinine 1.18 (0.6-1.2) mg/dl Glucose 123 H (70-99(Fasting)) mg/dl Calcium 8.2 L (8.6-10.3) mg/dl Intake and Output 12/10/23 12/11/23 12/11/23 22:59 06:59 14:59 Intake Total 400 / 788.553 192.885 / 788.553 Output Total 301 / 1601 1300 / 1601 Balance 99 / -812.447 -1107.115 / -812.447 Intake: IV 192.885 / 388.553 Amiodarone / D5w 360 mg In 200 192.885 / 388.553 ml @ 0.5 MG/MIN 16.667 mls/hr IV .Q12H BALJEET Rx#:[id number] Oral 400 / 400 Output: Urine Amount (Catheter) 300 / 1600 1300 / 1600 Danielle/Indwelling 300 / 1600 1300 / 1600 # Bowel Movements Other: # Unmeasured Voids 1 Weight 170 kg Weight Measurement Method Built in [facility]
[2023-12-11] MEDS: HYDROmorphone INJ 0.5 MG/0.5 ML SYR IV STA (13:18)
[2023-12-11] MEDS: ACETAMINOPHEN 500 MG TAB PO PRN (16:22)
[2023-12-11] MEDS ORDERED: MAGNESIUM HYDROXIDE SUSP 30 ML UDC PO PRN (18:25)
--- NOTE | 2023-12-11 18:44 | Hospitalist Progress Note ---
Date of Service December 11, 2023 Assessment & Plan (1) Atrial fibrillation with rapid ventricular response: (2) Elevated troponin: (3) COVID-19: (4) Hypoxia: (5) Abdominal pain: (6) Urolithiasis: (7) Generalized weakness: (8) Tachycardia-bradycardia syndrome: (9) Hypertension: (10) HLD (hyperlipidemia): (11) Hypothyroidism: (12) Morbid obesity with BMI of 60.0-69.9, adult: Plan Patient is a 63yoF with PMHx significant for paroxysmal atrial fibrillation anticoagulated on Eliquis, tachybradycardia syndrome refusing pacemaker, HTN, HLD, hypothyroidism, obesity, obstructive uropathy s/p L uretal stent placement on 11/08 admitted with R sided abdominal pain, FLETCHER and atrial fibrillation with RVR in the setting of a COVID infection. Atrial fibrillation with rapid ventricular response Presented with R abd pain, found to be in a fib with RVR Usually on sotalol 40mg BID with Eliquis for anticoagulation for PAF. Had not taken her AM dose of sotalol. On admission, P: 147, RR: 19, BP 111/71. K 3.8, Magnesium: 2.0, TSH: 5.9 T4 0.98 EKG on admission: A-fib RVR, rate 143 Patient denied chest pain, palpitations, shortness of breath. Dizziness reported with standing. In ER received a total of 15mg of IV Lopressor. Heart rate improved from 140s down to 120s. Patient given her morning dose of sotalol in the ER Started on a diltiazem drip per cardiology recommendations Cardiology consulted- appreciate recs. Recommended: -holding home sotalol in setting of FLETCHER, transitioned to PO metoprolol tartrate 25mg QID with diltiazem drip -Continue Eliquis 5mg BID for anticoagulation -deferring repeat echo 12/06- pt with noted pauses, diltiazem drip rate decreased, heart rates remain controlled. Appreciate cardiology recs for further management 12/07-HR remains controlled on diltiazem drip and PO metoprolol regimen, cards advising to continue with anticoagulation, INR monitoring. 12/08- HR remains controlled on diltiazem drip and PO metoprolol regimen, on anticoagulation, INR wnl. Appreciate cardiology recs 12/09- Transitioned to amiodarone drip and PO metoprolol regimen, continue eliquis 12/10- on amio drip and metoprolol QID regimen, continue eliquis 12/11- on amio drip and metoprolol QID regimen, continue eliquis Hematuria Anemia Pt with gross blood in urinary canister near bed previously Hgb in 8-9 range currently, was 11.4 on 11/08, appears her baseline is ~11 Appears anemia microcytic, MCV 88 Iron level 44 Had uncollected UA from the ED Repeat UA order placed- UA with hematuria and urine Cx with no significant growth. WBC likely elevated in the setting of steroid use. Will defer on abx at this time. Urology consult- aliza recs -per cardiology and urology, continue with anticoagulation at this time - 12/08- hernandez in, hand irrigate for clots retention, suprapubic pain Stable at this time Elevated troponin Initial troponin 54. Downtrended to 41.3 EKG with noted atrial fibrillation with RVR Likely elevated secondary to demand ischemia from rapid A-fib, doubt ACS COVID-19 Acute hypoxic respiratory failure Pt with sore throat, cough, congestion that started 3-4 days prior to arrival In ER 89% on room air up to 95% on 3L nasal cannula COVID-19 positive on 12/04/22 Chest xray with no acute changes In ER given dexamethasone 6 mg IV, continue daily x 5 days Airborne isolation Supplemental oxygen as needed, wean as tolerated Incentive spirometry, flutter valve Further supportive treatment as needed Stable, currently on RA FLETCHER (acute kidney injury) Cr: 1.6 on admission, was 0.94 the day before Received NSS 2L, Cr slightly increased at 1.69 Received gentle diuresis with NSS @70 for 2 bags. However FLETCHER persists, Nephrology consult placed on 12/07, appreciate recs Monitor fluid balance Avoid contrast/nephrotoxic meds Monitor renal function 12/08- Cr improved at 1.4 today. Aliza nephrology recs 12/09- Cr wnl, resolved. 12/10- Cr slightly elevated, continue to monitor 12/11- Cr back to normal limits Abdominal pain Hx of obstructive uropathy s/p stent placement Patient with reported right-sided abdominal pain that started morning of admission. 12/04/2023 (day before admission), CT abdomen pelvis noted LEFT-sided ureteral stent in place, bilateral intrarenal stones, proximal left ureteral stone, diverticulosis with no signs of diverticulitis. No acute appendicitis or bowel obstruction. No evidence of visceral or intra-abdominal injury. No acute fracture. Pain control Urology consult placed for hematuria (see above) but appreciate recs for this as well. Generalized weakness Ambulates with cane at baseline. Increased generalized weakness over the past several days. Likely secondary to underlying infection with COVID-19 12/04/2023: CT head: No acute intracranial abnormality Fall precautions PT/OT eval-recommending home with s/o support and HH services Tachycardia-bradycardia syndrome History of tachybrady syndrome. Follows with cardiology and EP. In past has refused pacemaker Monitor on telemetry Hypertension Hold losartan and HCTZ with current FLETCHER Currently on metoprolol tartrate 25mg QID, monitor BPs HLD (hyperlipidemia) Continue atorvastatin Hypothyroidism Continue levothyroxine Morbid obesity with BMI of 60.0-69.9, adult BMI: 67 Encourage weight loss Pt ordered bariatric bed the day before for better comfort Constipation Docusate sodium 100mg BID PRN Miralax ordered PRN milk of magnesia Diet: HH DVT Prophylaxis: On Eliquis CODE STATUS: Full code Dispo: PT/OT recommending home with s/o support and HH services Admission and Anticipated Discharge Date Admission Date: December 05, 2023 Subjective Pt was tearful and shouting during exam today. States that she was having her pain and that she was not receiving her pain meds on a schedule though they were ordered prn States that she wants the "kidney stones out" On bariatric bed, states that it is still not the best option for her Review of Systems Review of Systems: All systems reviewed & are unremarkable except as noted in Subjective Physical Exam Physical Exam: General: Alert, oriented. in distress Psych: angry mood and affect Neuro:Some difficulty with movements and weakness HEENT: NC/AT CV: Heart sounds faint, irregular Resp: no increased effort of breathing Abdomen: Soft, nontender Extremities: edema in lower extremities bilaterally. Results & Data Results & Data Vital Signs (Past 12 Hours) Vital Signs Temp Pulse Pulse Resp BP Pulse Ox O2 Del Method 12/11/23 11:02 36.4 C L 78 18 146/72 H 97 Room Air 12/11/23 07:37 36.3 C L 65 14 138/75 97 Room Air 12/11/23 07:35 84 12/11/23 07:35 Room Air 12/11/23 03:00 36.3 C L 65 18 130/60 97 Room Air
[2023-12-11] MEDS: DOCUSATE SODIUM 100 MG CAP PO SCH (20:37)
[2023-12-12] MEDS: DICLOFENAC SOD 1% GEL 100 GM TUBE EXT PRN (06:27)
[2023-12-12 07:23] LABS: Hematocrit (blood only) 31.5 % (37.0-47.0); Hemoglobin 9.8 g/dl (12.0-16.0); Mean Corpuscular Hemoglobin 27.2 pg (25.0-34.0); Mean Corpuscular Hgb Conc 31.1 g/dL (32.0-36.0); Mean Corpuscular Volume 87.5 fL (80.0-100.0); Mean Platelet Volume 10.5 fL (9.4-12.4); Nucleated RBC # (auto) 0.11 K/uL (0.00-0.12); Nucleated RBC % (auto) 0.9 %; Platelet Count 344 K/uL (130-400); RDW Coefficient of Variation 15.5 % (11.5-14.5); RDW Standard Deviation 48.9 fL (36.4-46.3)
[2023-12-12 07:47] LABS: BUN Creatinine Ratio 39.1 (10-20); Creatinine Clr Calc Pharmacy 68.8 ml/min; Est GFR (African American) 49.5 ml/min; Est GFR (Non-African American) 42.7 ml/min; Magnesium 2.4 mg/dl (1.7-2.4); Phosphorus 3.5 mg/dl (2.5-4.9); Potassium 4.2 mmol/L (3.5-5.1)
[2023-12-12 07:51] LABS: Basophils # (auto) 0.04 K/uL (0.00-0.20); Basophils % (auto) 0.3 %; Eosinophils # (auto) 0.01 K/uL (0.00-0.50); Eosinophils % (auto) 0.1 %; Immature Granulocytes % (auto) 7.2 %; Lymphocytes # (auto) 2.32 K/uL (1.20-3.40); Lymphocytes % (auto) 18.6 %; Neutrophils # (auto) 8.23 K/uL (1.40-6.50); Neutrophils % (auto) 65.8 %; Polychromasia 1+
[2023-12-12 08:16] LABS: Calcium 8.5 mg/dl (8.6-10.3)
--- NOTE | 2023-12-12 16:30 | Hospitalist Progress Note ---
Date of Service December 12, 2023 Assessment & Plan (1) Atrial fibrillation with rapid ventricular response: (2) Elevated troponin: (3) COVID-19: (4) Hypoxia: (5) Abdominal pain: (6) Urolithiasis: (7) Generalized weakness: (8) Tachycardia-bradycardia syndrome: (9) Hypertension: (10) HLD (hyperlipidemia): (11) Hypothyroidism: (12) Morbid obesity with BMI of 60.0-69.9, adult: Plan Patient is a 63yoF with PMHx significant for paroxysmal atrial fibrillation anticoagulated on Eliquis, tachybradycardia syndrome refusing pacemaker, HTN, HLD, hypothyroidism, obesity, obstructive uropathy s/p L uretal stent placement on 11/08 admitted with R sided abdominal pain, FLETCHER and atrial fibrillation with RVR in the setting of a COVID infection. Atrial fibrillation with rapid ventricular response Presented with R abd pain, found to be in a fib with RVR Usually on sotalol 40mg BID with Eliquis for anticoagulation for PAF. Had not taken her AM dose of sotalol. On admission, P: 147, RR: 19, BP 111/71. K 3.8, Magnesium: 2.0, TSH: 5.9 T4 0.98 EKG on admission: A-fib RVR, rate 143 Patient denied chest pain, palpitations, shortness of breath. Dizziness reported with standing. In ER received a total of 15mg of IV Lopressor. Heart rate improved from 140s down to 120s. Patient given her morning dose of sotalol in the ER Started on a diltiazem drip per cardiology recommendations Cardiology consulted- appreciate recs. Recommended: -holding home sotalol in setting of FLETCHER, transitioned to PO metoprolol tartrate 25mg QID with diltiazem drip -Continue Eliquis 5mg BID for anticoagulation -deferring repeat echo 12/06- pt with noted pauses, diltiazem drip rate decreased, heart rates remain controlled. Appreciate cardiology recs for further management 12/07-HR remains controlled on diltiazem drip and PO metoprolol regimen, cards advising to continue with anticoagulation, INR monitoring. 12/08- HR remains controlled on diltiazem drip and PO metoprolol regimen, on anticoagulation, INR wnl. Appreciate cardiology recs 12/09- Transitioned to amiodarone drip and PO metoprolol regimen, continue eliquis 12/10- on amio drip and metoprolol QID regimen, continue eliquis 12/11- on amio drip and metoprolol QID regimen, continue eliquis 12/12- transitioned to PO amiodarone, metoprolol d/c. Continue Eliquis, rate controlled Hematuria Anemia Pt with gross blood in urinary canister near bed previously Hgb in 8-9 range currently, was 11.4 on 11/08, appears her baseline is ~11 Appears anemia microcytic, MCV 88 Iron level 44 Had uncollected UA from the ED Repeat UA order placed- UA with hematuria and urine Cx with no significant growth. WBC likely elevated in the setting of steroid use. Will defer on abx at this time. Urology consult- appreciate recs -per cardiology and urology, continue with anticoagulation at this time - 12/08- hernandez in, hand irrigate for clots retention, suprapubic pain Stable at this time Elevated troponin Initial troponin 54. Downtrended to 41.3 EKG with noted atrial fibrillation with RVR Likely elevated secondary to demand ischemia from rapid A-fib, doubt ACS COVID-19 Acute hypoxic respiratory failure Pt with sore throat, cough, congestion that started 3-4 days prior to arrival In ER 89% on room air up to 95% on 3L nasal cannula COVID-19 positive on 12/04/22 Chest xray with no acute changes In ER given dexamethasone 6 mg IV, continue daily x 5 days Airborne isolation Supplemental oxygen as needed, wean as tolerated Incentive spirometry, flutter valve Further supportive treatment as needed Stable, currently on RA FLETCHER (acute kidney injury) Cr: 1.6 on admission, was 0.94 the day before Received NSS 2L, Cr slightly increased at 1.69 Received gentle diuresis with NSS @70 for 2 bags. However FLETCHER persists, Nephrology consult placed on 12/07, appreciate recs Monitor fluid balance Avoid contrast/nephrotoxic meds Monitor renal function 12/08- Cr improved at 1.4 today. Appreciate nephrology recs 12/09- Cr wnl, resolved. 12/10- Cr slightly elevated, continue to monitor 12/11- Cr back to normal limits 12/12- Cr elevated once more to 1.33 Abdominal pain Hx of obstructive uropathy s/p stent placement Patient with reported right-sided abdominal pain that started morning of admission. 12/04/2023 (day before admission), CT abdomen pelvis noted LEFT-sided ureteral stent in place, bilateral intrarenal stones, proximal left ureteral stone, diverticulosis with no signs of diverticulitis. No acute appendicitis or bowel obstruction. No evidence of visceral or intra-abdominal injury. No acute fracture. Pain control Urology consult placed for hematuria (see above) but appreciate recs for this as well. Generalized weakness Ambulates with cane at baseline. Increased generalized weakness over the past several days. Likely secondary to underlying infection with COVID-19 12/04/2023: CT head: No acute intracranial abnormality Fall precautions PT/OT eval-recommending home with s/o support and HH services Tachycardia-bradycardia syndrome History of tachybrady syndrome. Follows with cardiology and EP. In past has refused pacemaker Monitor on telemetry Hypertension Hold losartan and HCTZ with current FLETCHER Monitor BPs HLD (hyperlipidemia) Continue atorvastatin Hypothyroidism Continue levothyroxine Morbid obesity with BMI of 60.0-69.9, adult BMI: 67 Encourage weight loss Pt ordered bariatric bed the day before for better comfort Constipation Docusate sodium 100mg BID PRN Miralax ordered PRN milk of magnesia Diet: HH DVT Prophylaxis: On Eliquis CODE STATUS: Full code Dispo: PT/OT recommending home with s/o support and HH services Admission and Anticipated Discharge Date Admission Date: December 05, 2023 Subjective Pt seen sitting in chair at bedside. Discussion of PT, agreeable in the hospital not at home. States that she still wants the kidney stones taken out. Review of Systems Review of Systems: All systems reviewed & are unremarkable except as noted in Subjective Physical Exam Physical Exam: General: Alert, oriented. Psych: appropriate mood and affect Neuro:Some difficulty with movements and weakness HEENT: NC/AT CV: Heart sounds faint, irregular Resp: no increased effort of breathing Abdomen: Soft, nontender Extremities: edema in lower extremities bilaterally. Results & Data Results & Data Vital Signs (Past 12 Hours) Vital Signs Temp Pulse Resp BP Pulse Ox O2 Del Method 12/12/23 11:31 36.4 C L 68 18 145/91 H 96 Room Air 12/12/23 07:33 36.4 C L 61 18 143/82 H 96 Room Air 12/12/23 03:30 36.2 C L 73 18 150/77 H 96 Room Air
--- NOTE | 2023-12-12 16:39 | Cardiology Progress Note ---
Date of Service December 12, 2023 Assessment & Plan (1) Atrial fibrillation with rapid ventricular response: (2) COVID-19: (3) Morbid obesity with BMI of 60.0-69.9, adult: (4) Gross hematuria: Plan 63-year-old female with acute COVID infection and paroxysmal atrial fibrillation previously rhythm controlled with sotalol. Sotalol discontinued 12/05/2023 secondary to acute renal insufficiency. Treated with metoprolol tartrate with initiation of IV amiodarone 12/10/2023. Atrial fibrillation poorly tolerated in the past. Heart rate reasonably controlled today. Recommend discontinue IV amiodarone. Initiate oral amiodarone 200 mg 3 times daily. Continue oral metoprolol and Eliquis for stroke prophylaxis. Monitor hematuria and daily H&H. Treatment of COVID-19 infection as per hospitalist. Admission and Anticipated Discharge Date Admission Date: December 05, 2023 Subjective Patient seen examined the bedside. Off supplemental oxygen for the past 3 days. Remains in atrial fibrillation/flutter with borderline rate control. Sotalol discontinued during admission due to renal insufficiency. Has received Eliquis 5 mg twice daily uninterrupted throughout hospitalization. Tolerating intravenous amiodarone plus oral metoprolol. History of borderline tachybradycardia syndrome. Review of Systems Review of Systems: All systems reviewed & are unremarkable except as noted in Subjective Physical Exam Constitutional: + morbidly obese Respiratory: no respiratory distress and no retractions Auscultation: + rhonchi and + wheezes (b/L) Cardiovascular: Rate/Rhythm: + irregularly irregular Heart Sounds: normal S2; no murmur Vessels: no JVD Extremities: + edema (2+ bilateral pretibial edema) Gastrointestinal (Abdomen): Inspection/Auscultation: normal bowel sounds; abdomen not distended Percussion/Palpation: abdomen nontender, no guarding and abdomen not rigid Neurologic: CN's II-XI intact bilaterally and moves all extremities; no focal motor deficits Results & Data Vital Signs (Past 12 Hours) Vital Signs Temp Pulse Resp BP Pulse Ox O2 Del Method 12/12/23 15:20 36.4 C L 82 18 142/84 H 95 Room Air 12/12/23 11:31 36.4 C L 68 18 145/91 H 96 Room Air 12/12/23 07:33 36.4 C L 61 18 143/82 H 96 Room Air Laboratory Results CBC 12/12/23 Range/Units 06:12 WBC 12.50 H (4.8-10.8) K/ul RBC 3.60 L (4.20-5.40) M/uL Hgb 9.8 L (12.0-16.0) g/dl Hct 31.5 L (37.0-47.0) % Plt Count 344 (130-400) K/uL Neut # (Auto) 8.23 H (1.40-6.50) K/uL Lymph # (Auto) 2.32 (1.20-3.40) K/uL [place] # (Auto) 1.00 H (0.11-0.59) K/uL Eos # (Auto) 0.01 (0.00-0.50) K/uL Baso # (Auto) 0.04 (0.00-0.20) K/uL Comprehensive Metabolic Panel 12/12/23 Range/Units 06:12 Sodium 134 L (136-145) mmol/L Potassium 4.2 (3.5-5.1) mmol/L Chloride 103 (98-107) mmol/L Carbon Dioxide 23 (21-32) mmol/L BUN 52 H (6-23) mg/dl Creatinine 1.33 H (0.6-1.2) mg/dl Glucose 130 H (70-99(Fasting)) mg/dl Calcium 8.5 L (8.6-10.3) mg/dl Intake and Output 12/12/23 12/12/23 12/12/23 06:59 14:59 22:59 Intake Total 300 / 1094.813 439.823 / 506.901 67.078 / 506.901 Output Total 300 / 1800 300 / 300 Balance 0 / -705.187 139.823 / 206.901 67.078 / 206.901 Intake: IV 200 / 384.813 189.823 / 256.901 67.078 / 256.901 Amiodarone / D5w 360 mg In 200 200 / 384.813 189.823 / 256.901 67.078 / 256.901 ml @ 0.5 MG/MIN 16.667 mls/hr IV .Q12H [facility] Rx#:[id number] Oral 100 / 710 250 / 250 Output: Urine Amount (Catheter) 300 / 1800 300 / 300 Danielle/Indwelling 300 / 1800 300 / 300
[2023-12-12] MEDS: FUROSEMIDE INJ 20 MG/2 ML VIAL IV ONE (16:50)
[2023-12-12] MEDS: AMIODARONE 200 MG TAB PO SCH (17:51)
--- NOTE | 2023-12-12 20:42 | Electrocardiogram Report ---
Test Reason : Blood Pressure : / mmHG Vent. Rate : 071 BPM Atrial Rate : 241 BPM P-R Int : 000 ms QRS Dur : 086 ms QT Int : 376 ms P-R-T Axes : 000 020 -02 degrees QTc Int : 408 ms Atrial fibrillation Abnormal ECG When compared with ECG of 06-DEC-2023 06:38, No significant change was found Confirmed by Endy Miner ([id number]) on 12/12/2023 8:42:28 PM Referred By: REFERRED SELF Confirmed By:Endy Miner
--- NOTE | 2023-12-12 21:14 | Electrocardiogram Report ---
Test Reason : Blood Pressure : / mmHG Vent. Rate : 092 BPM Atrial Rate : 375 BPM P-R Int : 000 ms QRS Dur : 102 ms QT Int : 352 ms P-R-T Axes : 000 005 -24 degrees QTc Int : 435 ms Atrial fibrillation Moderate voltage criteria for LVH, may be normal variant Nonspecific ST and T wave abnormality Abnormal ECG When compared with ECG of 12-DEC-2023 08:45, (unconfirmed) No significant change was found Confirmed by Endy Miner ([id number]) on 12/12/2023 9:14:02 PM Referred By: REFERRED SELF Confirmed By:Endy Miner
[2023-12-13 07:42] LABS: Hematocrit (blood only) 32.7 % (37.0-47.0); Hemoglobin 10.4 g/dl (12.0-16.0); Mean Corpuscular Hemoglobin 27.2 pg (25.0-34.0); Mean Corpuscular Hgb Conc 31.8 g/dL (32.0-36.0); Mean Corpuscular Volume 85.4 fL (80.0-100.0); Mean Platelet Volume 10.5 fL (9.4-12.4); Nucleated RBC # (auto) 0.14 K/uL (0.00-0.12); Nucleated RBC % (auto) 1.2 %; Platelet Count 366 K/uL (130-400); RDW Coefficient of Variation 15.8 % (11.5-14.5); RDW Standard Deviation 47.3 fL (36.4-46.3); Red Blood Count 3.83 M/uL (4.20-5.40); White Blood Count 12.11 K/ul (4.8-10.8)
[2023-12-13 08:09] LABS: BUN Creatinine Ratio 39.4 (10-20); Calcium 8.7 mg/dl (8.6-10.3); Creatinine Clr Calc Pharmacy 66.8 ml/min; Est GFR (African American) 47.8 ml/min; Est GFR (Non-African American) 41.2 ml/min; Magnesium 2.4 mg/dl (1.7-2.4); Phosphorus 3.8 mg/dl (2.5-4.9)
--- NOTE | 2023-12-13 15:09 | Cardiology Progress Note ---
Date of Service December 13, 2023 Assessment & Plan (1) Atrial fibrillation with rapid ventricular response: (2) COVID-19: (3) Morbid obesity with BMI of 60.0-69.9, adult: (4) Gross hematuria: Plan Complex 63-year-old female admitted with acute COVID infection. As per hospital ist. Atrial fibrillation. Rhythm previously controlled on low-dose sotalol which was discontinued on December 05, 2023 due to acute renal dysfunction. Patient also with Tachy-Ranjan Syndrome prior to hospitalization, now with atrial fibrillation with rapid ventricular response which was previously poorly tolerated though now seemingly asymptomatic. She is chronically prescribed Eliquis anticoagulation. Options of management discussed. We specifically discussed rate versus rhythm control, cardioversion, antiarrhythmic therapy, permanent pacemaker implantation, etc. Patient clearly adverse to permanent pacemaker implantation which carries a relative contraindication at present. Via shared decision making, will attempt rate control strategy. Amiodarone will be discontinued. Lopressor will be increased to 50 mg 3 times daily for now. Continue Eliquis anticoagulation which may be interrupted if necessary for future urological intervention (not an ideal candidate at present with the uncontrolled rate and decompensated heart failure). Decompensated heart failure. Presumably HFpEF. Prior echo in April 2022 with normal to hyperdynamic LV function, EF 65 to 70% without segmental wall motion abnormalities; moderate aortic valve sclerosis without significant stenosis. Recommend IV furosemide, 40 mg daily along with supplemental potassium, potassium chloride 20 mEq/day. Hematuria. As per Hospitalist and Urology. Renal dysfunction. Multifactorial. Avoid contrast if able, and NSAID's Hypertension. BP labile, acceptable. Follow. Admission and Anticipated Discharge Date Admission Date: December 05, 2023 Supervising Physician Co-Signing Physician Notes Patient seen examined the bedside. Borderline rate control on telemetry. Continues to report nonproductive cough. No chest discomfort or heaviness. PE: VSS. Gen: NAD, AAOx3. Heart: Irregular rhythm, normal S1-S2. Lungs: Diminished breath sounds bilateral. No wheeze. Extremities: 2+ bilateral pretibial edema. A/P: Agree with above PA-C history, physical exam, assessment and plan. Patient with history of tachybradycardia syndrome and slow sinus rates while on sotalol. She adamantly declines possibility of pacemaker in the future. Currently relatively asymptomatic as it relates to her atrial fibrillation. Will adopt a rate control strategy with metoprolol. Discontinue amiodarone. Titrate metoprolol to 50 mg 3 times daily. Monitor telemetry. Continue Eliquis for anticoagulation. Initiate IV diuresis due to worsening lower extremity edema. Subjective Patient seen and examined. Chart, medications, and telemetry reviewed. Significant other, Naeem Atkins, at bedside Concerned mainly about the renal calculi, ongoing hematuria, need for urological intervention, and increasing fluid retention Unaware of the atrial fibrillation with a RVR. Notes compliance with Eliquis prior to and throughout hospitalization. Denies chest pain, tachypalpitations, unusual shortness of breath. No melena or hematochezia Telemetry: Atrial fibrillation ranging from 100 to 150 bpm. Review of Systems Review of Systems: Complete review of systems is otherwise as stated above, negative, noncontributory Physical Exam Physical Exam: General: A&Ox3. NAD. Elevated BMI HENT: Normocephalic. Atraumatic. Eyes: PER. Conjunctiva pink, sclera clear. Neck: JVD. Heart: Irregularly irregular at 130 bpm. No murmur appreciated. Lungs: Clear to auscultation. Abdomen: +BS. Soft. Nontender. No masses or organomegaly. Extremities: 3+ pretibial edema. No clubbing. No cyanosis. Limited neurological examination is without focal deficits. Pulses: radial=2/4. Posterior tibial and dorsalis pedis pulses not appreciated Results & Data Vital Signs (Past 12 Hours) Vital Signs Temp Pulse Pulse Resp BP BP Pulse Ox 12/13/23 15:05 138 H 12/13/23 11:48 36.4 C L 93 H 18 151/90 H 96 12/13/23 07:34 36.4 C L 88 16 168/80 H 96 12/13/23 07:30 136 H 12/13/23 07:30 12/13/23 05:52 88 12/13/23 03:25 36.5 C 70 18 138/80 98 O2 Del Method 12/13/23 15:05 12/13/23 11:48 Room Air 12/13/23 07:34 Room Air 12/13/23 07:30 12/13/23 07:30 Room Air 12/13/23 05:52 12/13/23 03:25 Room Air Laboratory Results CBC 12/13/23 Range/Units 06:49 WBC 12.11 H (4.8-10.8) K/ul RBC 3.83 L (4.20-5.40) M/uL Hgb 10.4 L (12.0-16.0) g/dl Hct 32.7 L (37.0-47.0) % Plt Count 366 (130-400) K/uL Comprehensive Metabolic Panel 12/13/23 Range/Units 06:49 Sodium 133 L (136-145) mmol/L Potassium 4.0 (3.5-5.1) mmol/L Chloride 101 (98-107) mmol/L Carbon Dioxide 23 (21-32) mmol/L BUN 54 H (6-23) mg/dl Creatinine 1.37 H (0.6-1.2) mg/dl Glucose 110 H (70-99(Fasting)) mg/dl Calcium 8.7 (8.6-10.3) mg/dl Intake and Output 12/13/23 12/13/23 12/13/23 06:59 14:59 22:59 Intake Total 550 / 550 Output Total 250 / 1450 450 / 450 Balance -250 / -943.099 100 / 100 Intake: Oral 550 / 550 Output: Urine Amount (Catheter) 250 / 1450 450 / 450 External 450 / 450 Danielle/Indwelling 250 / 1450
[2023-12-13] MEDS: FUROSEMIDE 40 MG/4 ML VIAL IV ONE (15:22)
[2023-12-13] MEDS: POTASSIUM CHLORIDE CRTAB 20 MEQ TABCR PO ONE (15:22)
--- NOTE | 2023-12-13 19:27 | Hospitalist Progress Note ---
Date of Service December 13, 2023 Assessment & Plan (1) Atrial fibrillation with rapid ventricular response: (2) Elevated troponin: (3) COVID-19: (4) Hypoxia: (5) Abdominal pain: (6) Urolithiasis: (7) Generalized weakness: (8) Tachycardia-bradycardia syndrome: (9) Hypertension: (10) HLD (hyperlipidemia): (11) Hypothyroidism: (12) Morbid obesity with BMI of 60.0-69.9, adult: Plan Patient is a 63yoF with PMHx significant for paroxysmal atrial fibrillation anticoagulated on Eliquis, tachybradycardia syndrome refusing pacemaker, HTN, HLD, hypothyroidism, obesity, obstructive uropathy s/p L uretal stent placement on 11/08 admitted with R sided abdominal pain, FLETCHER and atrial fibrillation with RVR in the setting of a COVID infection. Atrial fibrillation with rapid ventricular response Presented with R abd pain, found to be in a fib with RVR Usually on sotalol 40mg BID with Eliquis for anticoagulation for PAF. Had not taken her AM dose of sotalol. On admission, P: 147, RR: 19, BP 111/71. K 3.8, Magnesium: 2.0, TSH: 5.9 T4 0.98 EKG on admission: A-fib RVR, rate 143 Patient denied chest pain, palpitations, shortness of breath. Dizziness reported with standing. In ER received a total of 15mg of IV Lopressor. Heart rate improved from 140s down to 120s. Patient given her morning dose of sotalol in the ER Started on a diltiazem drip per cardiology recommendations Cardiology consulted- appreciate recs. Recommended: -holding home sotalol in setting of FLETCHER, transitioned to PO metoprolol tartrate 25mg QID with diltiazem drip -Continue Eliquis 5mg BID for anticoagulation -deferring repeat echo Appreciate Cardiology recs and management: 12/06- pt with noted pauses, diltiazem drip rate decreased, heart rates remain controlled. Appreciate cardiology recs for further management 12/07-HR remains controlled on diltiazem drip and PO metoprolol regimen, cards advising to continue with anticoagulation, INR monitoring. 12/08- HR remains controlled on diltiazem drip and PO metoprolol regimen, on anticoagulation, INR wnl. Appreciate cardiology recs 12/09- Transitioned to amiodarone drip and PO metoprolol regimen, continue eliquis 12/10- on amio drip and metoprolol QID regimen, continue eliquis 12/11- on amio drip and metoprolol QID regimen, continue eliquis 12/12- transitioned to PO amiodarone, metoprolol d/c. Continue Eliquis, rate controlled 12/13- PO amiodarone d/c, on metoprolol 50mg TID, continue eliquis. Currently rate controlled. Hematuria Anemia Pt with gross blood in urinary canister near bed previously Hgb in 8-9 range currently, was 11.4 on 11/08, appears her baseline is ~11 Appears anemia microcytic, MCV 88 Iron level 44 Had uncollected UA from the ED Repeat UA order placed- UA with hematuria and urine Cx with no significant growth. WBC likely elevated in the setting of steroid use. Will defer on abx at this time. Urology consult- appreciate recs -per cardiology and urology, continue with anticoagulation at this time - 12/08- hernandez in, hand irrigate for clots retention, suprapubic pain Stable at this time Elevated troponin Initial troponin 54. Downtrended to 41.3 EKG with noted atrial fibrillation with RVR Likely elevated secondary to demand ischemia from rapid A-fib, doubt ACS COVID-19 Acute hypoxic respiratory failure Pt with sore throat, cough, congestion that started 3-4 days prior to arrival In ER 89% on room air up to 95% on 3L nasal cannula COVID-19 positive on 12/04/22 Chest xray with no acute changes In ER given dexamethasone 6 mg IV, continue daily x 5 days Airborne isolation Supplemental oxygen as needed, wean as tolerated Incentive spirometry, flutter valve Further supportive treatment as needed Stable, currently on RA FLETCHER (acute kidney injury) Cr: 1.6 on admission, was 0.94 the day before Received NSS 2L, Cr slightly increased at 1.69 Received gentle diuresis with NSS @70 for 2 bags. However FLETCHER persists, Nephrology consult placed on 12/07, appreciate recs Monitor fluid balance Avoid contrast/nephrotoxic meds Monitor renal function 12/08- Cr improved at 1.4 today. Appreciate nephrology recs 12/09- Cr wnl, resolved. 12/10- Cr slightly elevated, continue to monitor 12/11- Cr back to normal limits 12/12- Cr elevated once more to 1.33 12/13- Cr 1.37, stable. Continue to monitor Abdominal pain Hx of obstructive uropathy s/p stent placement Patient with reported right-sided abdominal pain that started morning of admission. 12/04/2023 (day before admission), CT abdomen pelvis noted LEFT-sided ureteral stent in place, bilateral intrarenal stones, proximal left ureteral stone, diverticulosis with no signs of diverticulitis. No acute appendicitis or bowel obstruction. No evidence of visceral or intra-abdominal injury. No acute fracture. Pain control Urology consult placed for hematuria (see above) but appreciate recs for this as well. Generalized weakness Ambulates with cane at baseline. Increased generalized weakness over the past several days. Likely secondary to underlying infection with COVID-19 12/04/2023: CT head: No acute intracranial abnormality Fall precautions PT/OT eval-recommending home with s/o support and HH services Tachycardia-bradycardia syndrome History of tachybrady syndrome. Follows with cardiology and EP. In past has refused pacemaker Monitor on telemetry Hypertension Hold losartan and HCTZ with current FLETCHER Monitor BPs HLD (hyperlipidemia) Continue atorvastatin Hypothyroidism Continue levothyroxine Morbid obesity with BMI of 60.0-69.9, adult BMI: 67 Encourage weight loss Pt ordered bariatric bed for better comfort Constipation Docusate sodium 100mg BID PRN Miralax ordered PRN milk of magnesia Diet: HH DVT Prophylaxis: On Eliquis CODE STATUS: Full code Dispo: PT/OT recommending home with s/o support and HH services Admission and Anticipated Discharge Date Admission Date: December 05, 2023 Subjective Seen with boyfriend at bedside. Denies acute concerns today. Was more comfortable. Review of Systems Review of Systems: All systems reviewed & are unremarkable except as noted in Subjective Physical Exam Physical Exam: General: Alert, oriented. Psych: appropriate mood and affect Neuro:Some difficulty with movements and weakness HEENT: NC/AT CV: Heart sounds faint, irregular Resp: no increased effort of breathing Abdomen: Soft, nontender Extremities: edema in lower extremities bilaterally. Results & Data Results & Data Vital Signs (Past 12 Hours) Vital Signs Temp Pulse Pulse Resp BP BP Pulse Ox 12/13/23 15:16 36.6 C 79 18 107/73 96 12/13/23 15:05 138 H 12/13/23 11:48 36.4 C L 93 H 18 151/90 H 96 12/13/23 07:34 36.4 C L 88 16 168/80 H 96 12/13/23 07:30 136 H 12/13/23 07:30 12/13/23 05:52 88 O2 Del Method 12/13/23 15:16 Room Air 12/13/23 15:05 12/13/23 11:48 Room Air 12/13/23 07:34 Room Air 12/13/23 07:30 12/13/23 07:30 Room Air 12/13/23 05:52
[2023-12-13] MEDS: METOPROLOL TARTRATE 50 MG TAB PO SCH (21:14)
[2023-12-14 08:04] LABS: Hematocrit (blood only) 34.8 % (37.0-47.0); Hemoglobin 10.8 g/dl (12.0-16.0); Mean Corpuscular Hemoglobin 26.8 pg (25.0-34.0); Mean Corpuscular Volume 86.4 fL (80.0-100.0); Mean Platelet Volume 10.5 fL (9.4-12.4); Nucleated RBC # (auto) 0.12 K/uL (0.00-0.12); Nucleated RBC % (auto) 0.8 %; Platelet Count 345 K/uL (130-400); RDW Coefficient of Variation 15.8 % (11.5-14.5); RDW Standard Deviation 48.5 fL (36.4-46.3); Red Blood Count 4.03 M/uL (4.20-5.40); White Blood Count 14.28 K/ul (4.8-10.8)
[2023-12-14 08:25] LABS: BUN Creatinine Ratio 43.2 (10-20); Calcium 8.6 mg/dl (8.6-10.3); Creatinine Clr Calc Pharmacy 71.1 ml/min; Est GFR (Non-African American) 43.1 ml/min; Magnesium 2.3 mg/dl (1.7-2.4); Phosphorus 3.9 mg/dl (2.5-4.9); Potassium 3.8 mmol/L (3.5-5.1)
--- NOTE | 2023-12-14 11:30 | Cardiology Progress Note ---
Date of Service December 14, 2023 Assessment & Plan (1) Atrial fibrillation with rapid ventricular response: (2) COVID-19: (3) Morbid obesity with BMI of 60.0-69.9, adult: (4) Gross hematuria: Plan Complex 63-year-old female admitted with acute COVID infection. Covid-19 treatm ent as per hospitalist. Atrial fibrillation. Rhythm previously controlled on low-dose sotalol which was discontinued on December 05, 2023 due to acute renal dysfunction. Patient with moderate bradycardia, Tachy-Ranjan Syndrome prior to hospitalization, now back in atrial fibrillation which was previously poorly tolerated though currently asymptomatic. Patient chronically prescribed Eliquis anticoagulation. Patient adverse to permanent pacemaker implantation. Via shared decision making on 12/13/2023, we changed to a rate control strategy. Amiodarone discontinued on 12/13/2023. Lopressor changed/increased to 50 mg TID with improvement, rates acceptably controlled at present. Will plan to change to Toprol XL 75 mg BID on 12/15/2023. Decompensated heart failure. Presumably HFpEF. Prior echo in April 2022 with normal to hyperdynamic LV function, EF 65 to 70% without segmental wall motion abnormalities; moderate aortic valve sclerosis without significant stenosis. Recommend IV furosemide, 40 mg BID along with supplemental potassium, potassium chloride 20 mEq BID today. Hematuria. As per Hospitalist and Urology. Renal dysfunction. Multifactorial. Avoid contrast if able, and NSAID's Hypertension. See above. Follow. Admission and Anticipated Discharge Date Admission Date: December 05, 2023 Supervising Physician Co-Signing Physician Notes Patient seen examined the bedside. Borderline rate control on telemetry. Continues to report nonproductive cough. No chest discomfort or heaviness. PE: VSS. Gen: NAD, AAOx3. Heart: Irregular rhythm, normal S1-S2. Lungs: Diminished breath sounds bilateral. No wheeze. Extremities: 2+ bilateral pretibial edema. A/P: Agree with above PA-C history, physical exam, assessment and plan. Continue rate control strategy with metoprolol and oral anticoagulation with Eliquis. Titrate Lasix to 40 mg IV twice daily. Supplement potassium as indicated. Monitor daily weight, fluid balance, GFR, and electrolytes. Subjective Patient seen and examined. Chart, medications, and telemetry reviewed. Significant other, Naeem Atkins, is at home today shoveling snow. Off of Covid-19 precautions. Unable to elevated the legs due to neuropathy. Breathing is fine. Edema unchanged. Heart rates improved, telemetry revealing atrial fibrillation in the 70 to 100 bpm range, asymptomatic. Patient compliant with Eliquis prior to and throughout hospitalization. No chest pain. No palpitations. No melena or hematochezia. Review of Systems Review of Systems: Complete review of systems is otherwise as stated above, negative, noncontributory Physical Exam Physical Exam: General: A&Ox3. NAD. Elevated BMI HENT: Normocephalic. Atraumatic. Eyes: PER. Conjunctiva pink, sclera clear. Neck: JVD. Heart: Irregularly irregular in the 80's. No murmur appreciated. Lungs: Clear to auscultation. Abdomen: +BS. Soft. Nontender. No masses or organomegaly. Extremities: 3+ pretibial edema. No clubbing. No cyanosis. Limited neurological examination is without focal deficits. Pulses: radial=2/4. Posterior tibial and dorsalis pedis pulses not appreciated Results & Data Vital Signs (Past 12 Hours) Vital Signs Temp Pulse Pulse Resp BP Pulse Ox O2 Del Method 12/14/23 07:46 36.8 C 97 H 16 169/85 H 97 Room Air 12/14/23 03:58 36.4 C L 85 137/76 99 Room Air 12/14/23 00:00 36.3 C L 87 20 157/94 H 99 Room Air Laboratory Results CBC 12/14/23 Range/Units 07:19 WBC 14.28 H (4.8-10.8) K/ul RBC 4.03 L (4.20-5.40) M/uL Hgb 10.8 L (12.0-16.0) g/dl Hct 34.8 L (37.0-47.0) % Plt Count 345 (130-400) K/uL Comprehensive Metabolic Panel 12/14/23 Range/Units 07:19 Sodium 135 L (136-145) mmol/L Potassium 3.8 (3.5-5.1) mmol/L Chloride 100 (98-107) mmol/L Carbon Dioxide 25 (21-32) mmol/L BUN 57 H (6-23) mg/dl Creatinine 1.32 H (0.6-1.2) mg/dl Glucose 109 H (70-99(Fasting)) mg/dl Calcium 8.6 (8.6-10.3) mg/dl Intake and Output 12/13/23 12/14/23 12/14/23 22:59 06:59 14:59 Output Total 1200 / 1900 250 / 1900 Balance -1200 / -1350 -250 / -1350 Output: Urine Amount (Catheter) 1200 / 1900 250 / 1900 Danielle/Indwelling 1200 / 1450 250 / 1450 Other: Weight 176.311 kg Weight Measurement Method Standing Scale
[2023-12-14] MEDS: FUROSEMIDE 40 MG/4 ML VIAL IV SCH (12:00)
[2023-12-14] MEDS: POTASSIUM CHLORIDE CRTAB 20 MEQ TABCR PO SCH (12:00)
[2023-12-14 12:38] LABS: Appearance Urine Turbid (Clear); Bacteria Urine Automated 2+ (Negative); Bilirubin Urine Negative (Negative); Blood Urine 3+ (Negative); Epithelial Cell Urine Auto >30 /lpf (0-5); Glucose Urine UA Negative (Negative); Ketones Urine Negative (Negative); Leukocyte Esterase Urine 3+ (Negative); Nitrite Urine Positive (Negative); Protein Urine 2+ (Negative); Urobilinogen Urine Negative (Negative); WBC Urine Automated >30 /hpf (0-5); pH Urine 5.5 (4.5-7.5)
[2023-12-14 12:41] LABS: Color Urine Brown
[2023-12-14 12:49] LABS: RBC Urine Automated >30 /hpf (0-4)
[2023-12-14 12:51] LABS: Cast Urine Automated 0 /lpf (0-5)
--- NOTE | 2023-12-14 15:30 | Hospitalist Progress Note ---
Date of Service December 14, 2023 Assessment & Plan (1) Atrial fibrillation with rapid ventricular response: (2) Elevated troponin: (3) COVID-19: (4) Hypoxia: (5) Abdominal pain: (6) Urolithiasis: (7) Generalized weakness: (8) Tachycardia-bradycardia syndrome: (9) Hypertension: (10) HLD (hyperlipidemia): (11) Hypothyroidism: (12) Morbid obesity with BMI of 60.0-69.9, adult: Plan Patient is a 63yoF with PMHx significant for paroxysmal atrial fibrillation anticoagulated on Eliquis, tachybradycardia syndrome refusing pacemaker, HTN, HLD, hypothyroidism, obesity, obstructive uropathy s/p L uretal stent placement on 11/08 admitted with R sided abdominal pain, FLETCHER and atrial fibrillation with RVR in the setting of a COVID infection. Atrial fibrillation with rapid ventricular response Presented with R abd pain, found to be in a fib with RVR Usually on sotalol 40mg BID with Eliquis for anticoagulation for PAF. Had not taken her AM dose of sotalol. On admission, P: 147, RR: 19, BP 111/71. K 3.8, Magnesium: 2.0, TSH: 5.9 T4 0.98 EKG on admission: A-fib RVR, rate 143 Patient denied chest pain, palpitations, shortness of breath. Dizziness reported with standing. In ER received a total of 15mg of IV Lopressor. Heart rate improved from 140s down to 120s. Patient given her morning dose of sotalol in the ER Started on a diltiazem drip per cardiology recommendations Cardiology consulted- appreciate recs. Recommended: -holding home sotalol in setting of FLETCHER, transitioned to PO metoprolol tartrate 25mg QID with diltiazem drip -Continue Eliquis 5mg BID for anticoagulation -deferring repeat echo Appreciate Cardiology recs and management: 12/06- pt with noted pauses, diltiazem drip rate decreased, heart rates remain controlled. Appreciate cardiology recs for further management 12/07-HR remains controlled on diltiazem drip and PO metoprolol regimen, cards advising to continue with anticoagulation, INR monitoring. 12/08- HR remains controlled on diltiazem drip and PO metoprolol regimen, on anticoagulation, INR wnl. Appreciate cardiology recs 12/09- Transitioned to amiodarone drip and PO metoprolol regimen, continue eliquis 12/10- on amio drip and metoprolol QID regimen, continue eliquis 12/11- on amio drip and metoprolol QID regimen, continue eliquis 12/12- transitioned to PO amiodarone, metoprolol d/c. Continue Eliquis, rate controlled 12/13- PO amiodarone d/c, on metoprolol 50mg TID, continue eliquis. Currently rate controlled. 12/14- Continue with regimen from day before, still rate controlled Diastolic congestive heart failure Lower extremity swelling Echo 2021- EF 65-70% On IV Lasix 40mg BID with potassium by cardiology Hematuria Anemia Pt with gross blood in urinary canister near bed previously Hgb in 8-9 range currently, was 11.4 on 11/08, appears her baseline is ~11 Appears anemia microcytic, MCV 88 Iron level 44 Had uncollected UA from the ED Repeat UA order placed- UA with hematuria and urine Cx with no significant growth. WBC likely elevated in the setting of steroid use. Will defer on abx at this time. Urology consult- appreciate recs -per cardiology and urology, continue with anticoagulation at this time - 12/08- hernandez in, hand irrigate for clots retention, suprapubic pain Stable at this time Elevated troponin Initial troponin 54. Downtrended to 41.3 EKG with noted atrial fibrillation with RVR Likely elevated secondary to demand ischemia from rapid A-fib, doubt ACS COVID-19 Acute hypoxic respiratory failure Pt with sore throat, cough, congestion that started 3-4 days prior to arrival In ER 89% on room air up to 95% on 3L nasal cannula COVID-19 positive on 12/04/22 Chest xray with no acute changes In ER given dexamethasone 6 mg IV, was continued and completed course of treatment Airborne isolation for total of 10 days of pt's start of symptoms Supplemental oxygen as needed, wean as tolerated Incentive spirometry, flutter valve Further supportive treatment as needed Stable, currently on RA FLETCHER (acute kidney injury) Cr: 1.6 on admission, was 0.94 the day before Received NSS 2L, Cr slightly increased at 1.69 Received gentle diuresis with NSS @70 for 2 bags. However FLETCHER persists, Nephrology consult placed on 12/07, appreciate recs Monitor fluid balance Avoid contrast/nephrotoxic meds Monitor renal function 12/08- Cr improved at 1.4 today. Appreciate nephrology recs 12/09- Cr wnl, resolved. 12/10- Cr slightly elevated, continue to monitor 12/11- Cr back to normal limits 12/12- Cr elevated once more to 1.33 12/13- Cr 1.37, stable. Continue to monitor 12/14- Cr 1.32, stable Abdominal pain Hx of obstructive uropathy s/p stent placement Patient with reported right-sided abdominal pain that started morning of admission. 12/04/2023 (day before admission), CT abdomen pelvis noted LEFT-sided ureteral stent in place, bilateral intrarenal stones, proximal left ureteral stone, diverticulosis with no signs of diverticulitis. No acute appendicitis or bowel obstruction. No evidence of visceral or intra-abdominal injury. No acute fracture. Pain control Urology consult placed for hematuria (see above) but appreciate recs for this as well. Generalized weakness Ambulates with cane at baseline. Increased generalized weakness over the past several days. Likely secondary to underlying infection with COVID-19 12/04/2023: CT head: No acute intracranial abnormality Fall precautions PT/OT eval-recommending home with s/o support and services Tachycardia-bradycardia syndrome History of tachybrady syndrome. Follows with cardiology and EP. In past has refused pacemaker Monitor on telemetry Hypertension Hold losartan and HCTZ with current FLETCHER Monitor BPs HLD (hyperlipidemia) Continue atorvastatin Hypothyroidism Continue levothyroxine Morbid obesity with BMI of 60.0-69.9, adult BMI: 67 Encourage weight loss Pt ordered bariatric bed for better comfort Constipation Docusate sodium 100mg BID PRN Miralax ordered PRN milk of magnesia Diet: HH DVT Prophylaxis: On Eliquis CODE STATUS: Full code Dispo: PT/OT recommending home with s/o support and HH services Admission and Anticipated Discharge Date Admission Date: December 05, 2023 Subjective Pt was seen sitting at bedside. Denied acute concerns today. Review of Systems Review of Systems: All systems reviewed & are unremarkable except as noted in Subjective Physical Exam Physical Exam: General: Alert, oriented. Psych: appropriate mood and affect Neuro:Some difficulty with movements and weakness HEENT: NC/AT CV: Heart sounds faint, irregular Resp: no increased effort of breathing Abdomen: Soft, nontender Extremities: edema in lower extremities bilaterally. Results & Data Results & Data Vital Signs (Past 12 Hours) Vital Signs Temp Pulse Pulse Resp BP Pulse Ox O2 Del Method 12/14/23 15:11 97 12/14/23 11:46 36.8 C 52 L 18 173/95 H 97 Room Air 12/14/23 07:46 36.8 C 97 H 16 169/85 H 97 Room Air 12/14/23 03:58 36.4 C L 85 137/76 99 Room Air O2 Flow Rate 12/14/23 15:11 0 12/14/23 11:46 12/14/23 07:46 12/14/23 03:58
[2023-12-14] MEDS: METOPROLOL TARTRATE 1 MG/ML VIAL IV STA (20:22)
[2023-12-15] MEDS: cefTRIAXone SODIUM 2,000 MG in DEXTROSE 5 % MINI-B 50 ML IV STA (03:13)
[2023-12-15 07:17] LABS: Hematocrit (blood only) 33.9 % (37.0-47.0); Hemoglobin 10.7 g/dl (12.0-16.0); Mean Corpuscular Hemoglobin 27.2 pg (25.0-34.0); Mean Corpuscular Hgb Conc 31.6 g/dL (32.0-36.0); Mean Platelet Volume 10.5 fL (9.4-12.4); Nucleated RBC # (auto) 0.07 K/uL (0.00-0.12); Nucleated RBC % (auto) 0.5 %; Platelet Count 328 K/uL (130-400); RDW Coefficient of Variation 15.9 % (11.5-14.5); RDW Standard Deviation 48.7 fL (36.4-46.3); Red Blood Count 3.94 M/uL (4.20-5.40); White Blood Count 13.98 K/ul (4.8-10.8)
[2023-12-15 07:28] LABS: BUN Creatinine Ratio 41.1 (10-20); Calcium 8.2 mg/dl (8.6-10.3); Est GFR (African American) 44.3 ml/min; Est GFR (Non-African American) 38.2 ml/min; Magnesium 2.2 mg/dl (1.7-2.4); Potassium 3.5 mmol/L (3.5-5.1)
--- NOTE | 2023-12-15 11:09 | Cardiology Progress Note ---
Date of Service December 15, 2023 Assessment & Plan (1) Atrial fibrillation with rapid ventricular response: (2) COVID-19: (3) Morbid obesity with BMI of 60.0-69.9, adult: (4) Gross hematuria: Plan Complex 63-year-old female admitted with acute COVID infection. Covid-19 treatment as per hospitalist. Atrial fibrillation. Rhythm previously controlled on low-dose sotalol which was discontinued on December 05, 2023 due to acute renal dysfunction. Patient with moderate bradycardia, Tachy-Ranjan Syndrome prior to hospitalization, reverting back to atrial fibrillation earlier this hospitalization. Atrial fibrillation previously poorly tolerated though now asymptomatic, chronically prescribed Eliquis anticoagulation, and adverse to permanent pacemaker implantation. Via shared decision making on 12/13/2023, we changed to a rate control strategy. Amiodarone discontinued on 12/13/2023. Change Lopressor 50 TID to Toprol XL 100 mg BID starting this PM. Decompensated heart failure. Presumably HFpEF. Prior echo in April 2022 with normal to hyperdynamic LV function, EF 65 to 70% without segmental wall motion abnormalities; moderate aortic valve sclerosis without significant stenosis. Continue IV furosemide 40 mg BID. Additional supplemental potassium ordered. Add low dose spironolactone 12.5 mg/day. Check labs in AM of 12/16. Admission and Anticipated Discharge Date Admission Date: December 05, 2023 Supervising Physician Co-Signing Physician Notes Patient seen examined the bedside. Borderline rate control at rest with elevated heart rates recorded during activity. Denies palpitations, lightheadedness, or dizziness. Continues to report nonproductive cough. No chest discomfort or heaviness. Fluid balance - 2455 PE: VSS. Gen: NAD, AAOx3. Heart: Irregular rhythm, normal S1-S2. Lungs: Diminished breath sounds bilateral. No wheeze. Extremities: 2+ bilateral pretibial edema. A/P: Agree with above PA-C history, physical exam, assessment and plan. Continue rate control strategy with metoprolol and oral anticoagulation with Eliquis. Transition metoprolol to tartrate to succinate formulation and titrate dose to 100 mg twice daily. Continue Lasix 40 mg IV twice daily and spironolactone. Supplement potassium as indicated. Monitor daily weight, fluid balance, GFR, and electrolytes. Subjective Patient seen and examined. Chart, medications, and telemetry reviewed. Significant other, Naeem Atkins, at bedside. Off of Covid-19 precautions. Still coughing. No palpitations. No chest pain. Breathing is OK. Edema maybe slight better. I/O's: -812.4 mLs, -705.2 mL's, -943.1 mL's, -1,350 mL's, -2055 mL's Telemetry: Atrial fibrillation currently in the 90's, ranging from the 70's briefly up to 130 bpm over the last 24 hours. Patient compliant with Eliquis prior to and throughout hospitalization. Review of Systems Review of Systems: Complete review of systems is otherwise as stated above, negative, noncontributory Physical Exam Physical Exam: General: A&Ox3. NAD. Elevated BMI HENT: Normocephalic. Atraumatic. Eyes: PER. Conjunctiva pink, sclera clear. Neck: JVD. Heart: Irregularly irregular at 90 bpm. No murmur appreciated. Lungs: Clear to auscultation. Abdomen: +BS. Soft. Nontender. No masses or organomegaly. Extremities: 2-3+ pretibial edema. No clubbing. No cyanosis. Limited neurological examination is without focal deficits. Pulses: radial=2/4. Posterior tibial and dorsalis pedis pulses not appreciated Results & Data Vital Signs (Past 12 Hours) Vital Signs Temp Pulse Resp BP BP Pulse Ox O2 Del Method 12/15/23 07:53 36.7 C 80 18 141/81 H 93 Room Air 12/15/23 02:58 37.5 C 87 18 116/78 92 Room Air Laboratory Results CBC 12/15/23 Range/Units 06:48 WBC 13.98 H (4.8-10.8) K/ul RBC 3.94 L (4.20-5.40) M/uL Hgb 10.7 L (12.0-16.0) g/dl Hct 33.9 L (37.0-47.0) % Plt Count 328 (130-400) K/uL Comprehensive Metabolic Panel 12/15/23 Range/Units 06:48 Sodium 135 L (136-145) mmol/L Potassium 3.5 (3.5-5.1) mmol/L Chloride 99 (98-107) mmol/L Carbon Dioxide 26 (21-32) mmol/L BUN 60 H (6-23) mg/dl Creatinine 1.46 H (0.6-1.2) mg/dl Glucose 110 H (70-99(Fasting)) mg/dl Calcium 8.2 L (8.6-10.3) mg/dl Intake and Output 12/14/23 12/15/23 12/15/23 22:59 06:59 14:59 Intake Total 1050 / 1400 350 / 1400 Output Total 145 / 3455 1999 Balance -405 / -2054 -1649 / Intake: IV 50 / 50 cefTRIAXone SODIUM 2,000 mg In 50 / 50 Dextrose 5 % Mini-B 50 ml @ 100 mls/hr IV NOW STA Rx#:[id number] Oral 1050 / 1350 300 / 1350 Output: Urine Amount (Catheter) 145 / 3454 Danielle/Indwelling 1454 / 3454 Other: Weight 175 kg Weight Measurement Method Standing Scale
[2023-12-15] MEDS: POTASSIUM CHLORIDE 10 MEQ TABCR PO ONE (12:57)
[2023-12-15] MEDS: SPIRONOLACTONE 12.5 MG TAB PO SCH (12:58)
--- NOTE | 2023-12-15 14:06 | Hospitalist Progress Note ---
Date of Service December 15, 2023 Assessment & Plan (1) Atrial fibrillation with rapid ventricular response: (2) Elevated troponin: (3) COVID-19: (4) Hypoxia: (5) Abdominal pain: (6) Urolithiasis: (7) Generalized weakness: (8) Tachycardia-bradycardia syndrome: (9) Hypertension: (10) HLD (hyperlipidemia): (11) Hypothyroidism: (12) Morbid obesity with BMI of 60.0-69.9, adult: Plan Patient is a 63yoF with PMHx significant for paroxysmal atrial fibrillation anticoagulated on Eliquis, tachybradycardia syndrome refusing pacemaker, HTN, HLD, hypothyroidism, obesity, obstructive uropathy s/p L uretal stent placement on 11/08 admitted with R sided abdominal pain, FLETCHER and atrial fibrillation with RVR in the setting of a COVID infection. Atrial fibrillation with rapid ventricular response Presented with R abd pain, found to be in a fib with RVR Usually on sotalol 40mg BID with Eliquis for anticoagulation for PAF. Had not taken her AM dose of sotalol. On admission, P: 147, RR: 19, BP 111/71. K 3.8, Magnesium: 2.0, TSH: 5.9 T4 0.98 EKG on admission: A-fib RVR, rate 143 Patient denied chest pain, palpitations, shortness of breath. Dizziness reported with standing. In ER received a total of 15mg of IV Lopressor. Heart rate improved from 140s down to 120s. Patient given her morning dose of sotalol in the ER Started on a diltiazem drip per cardiology recommendations Cardiology consulted- appreciate recs. Recommended: -holding home sotalol in setting of FLETCHER, transitioned to PO metoprolol tartrate 25mg QID with diltiazem drip -Continue Eliquis 5mg BID for anticoagulation -deferring repeat echo Appreciate Cardiology recs and management: 12/06- pt with noted pauses, diltiazem drip rate decreased, heart rates remain controlled. Appreciate cardiology recs for further management 12/07-HR remains controlled on diltiazem drip and PO metoprolol regimen, cards advising to continue with anticoagulation, INR monitoring. 12/08- HR remains controlled on diltiazem drip and PO metoprolol regimen, on anticoagulation, INR wnl. Appreciate cardiology recs 12/09- Transitioned to amiodarone drip and PO metoprolol regimen, continue eliquis 12/10- on amio drip and metoprolol QID regimen, continue eliquis 12/11- on amio drip and metoprolol QID regimen, continue eliquis 12/12- transitioned to PO amiodarone, metoprolol d/c. Continue Eliquis, rate controlled 12/13- PO amiodarone d/c, on metoprolol 50mg TID, continue eliquis. Currently rate controlled. 12/14- Continue with regimen from day before, still rate controlled 12/15- switched to toprol xl 100mg BID, continue eliquis Diastolic congestive heart failure Lower extremity swelling Echo 2021- EF 65-70% On IV Lasix 40mg BID with potassium by cardiology 12/15- IV Lasix 40mg BID, spironolactone 12.5mg UTI WBC elevated UA repeated and now with nitrites Started on Rocephin Urine Cx pending- follow to narrow abx Hematuria Anemia Pt with gross blood in urinary canister near bed previously Hgb in 9-10 range currently, was 11.4 on 11/08, appears her baseline is ~11 Appears anemia microcytic, MCV 88 Iron level 44 Had uncollected UA from the ED Repeat UA order placed- UA with hematuria and urine Cx with no significant growth. WBC likely elevated in the setting of steroid use. Will defer on abx at this time. Urology consult- appreciate recs -per cardiology and urology, continue with anticoagulation at this time - 12/08- hernandez in, hand irrigate for clots retention, suprapubic pain Stable at this time Elevated troponin Initial troponin 54. Downtrended to 41.3 EKG with noted atrial fibrillation with RVR Likely elevated secondary to demand ischemia from rapid A-fib, doubt ACS COVID-19 Acute hypoxic respiratory failure Pt with sore throat, cough, congestion that started 3-4 days prior to arrival In ER 89% on room air up to 95% on 3L nasal cannula COVID-19 positive on 12/04/22 Chest xray with no acute changes In ER given dexamethasone 6 mg IV, was continued and completed course of treatment Airborne isolation for total of 10 days of pt's start of symptoms Supplemental oxygen as needed, wean as tolerated Incentive spirometry, flutter valve Further supportive treatment as needed Stable, currently on RA FLETCHER (acute kidney injury) Cr: 1.6 on admission, was 0.94 the day before Received NSS 2L, Cr slightly increased at 1.69 Received gentle diuresis with NSS @70 for 2 bags. However FLETCHER persists, Nephrology consult placed on 12/07, appreciate recs Monitor fluid balance Avoid contrast/nephrotoxic meds Monitor renal function 12/08- Cr improved at 1.4 today. Appreciate nephrology recs 12/09- Cr wnl, resolved. 12/10- Cr slightly elevated, continue to monitor 12/11- Cr back to normal limits 12/12- Cr elevated once more to 1.33 12/13- Cr 1.37, stable. Continue to monitor 12/14- Cr 1.32, stable 12/15- Cr 1.46, continue to monitor Abdominal pain Hx of obstructive uropathy s/p stent placement Patient with reported right-sided abdominal pain that started morning of admission. 12/04/2023 (day before admission), CT abdomen pelvis noted LEFT-sided ureteral stent in place, bilateral intrarenal stones, proximal left ureteral stone, div erticulosis with no signs of diverticulitis. No acute appendicitis or bowel obstruction. No evidence of visceral or intra-abdominal injury. No acute fracture. Pain control Urology consult placed for hematuria (see above) but appreciate recs for this as well. Generalized weakness Ambulates with cane at baseline. Increased generalized weakness over the past several days. Likely secondary to underlying infection with COVID-19 12/04/2023: CT head: No acute intracranial abnormality Fall precautions PT/OT eval-recommending home with s/o support and services Tachycardia-bradycardia syndrome History of tachybrady syndrome. Follows with cardiology and EP. In past has refused pacemaker Monitor on telemetry Hypertension Hold losartan and HCTZ with current FLETCHER Monitor BPs HLD (hyperlipidemia) Continue atorvastatin Hypothyroidism Continue levothyroxine Morbid obesity with BMI of 60.0-69.9, adult BMI: 67 Encourage weight loss Pt ordered bariatric bed for better comfort Constipation Docusate sodium 100mg BID PRN Miralax ordered PRN milk of magnesia Diet: HH DVT Prophylaxis: On Eliquis CODE STATUS: Full code Dispo: PT/OT recommending home with s/o support and HH services Admission and Anticipated Discharge Date Admission Date: December 05, 2023 Subjective Seen at bedside eating breakfast. States she was having the right sided back pain but had not yet received AM meds. Review of Systems Review of Systems: All systems reviewed & are unremarkable except as noted in Subjective Physical Exam Physical Exam: General: Alert, oriented. Psych: appropriate mood and affect Neuro:Some difficulty with movements a HEENT: NC/AT CV: Heart sounds faint, irregular Resp: no increased effort of breathing Abdomen: Soft, nontender Extremities: edema in lower extremities bilaterally. Results & Data Results & Data Vital Signs (Past 12 Hours) Vital Signs Temp Pulse Resp BP BP Pulse Ox O2 Del Method 12/15/23 10:37 36.5 C 81 18 112/74 95 Room Air 12/15/23 07:53 36.7 C 80 18 141/81 H 93 Room Air 12/15/23 02:58 37.5 C 87 18 116/78 92 Room Air
[2023-12-15] MEDS: METOPROLOL SUCC 50MG EXT REL TAB PO SCH (22:25)
[2023-12-16 08:14] LABS: Basophils # (auto) 0.02 K/uL (0.00-0.20); Basophils % (auto) 0.2 %; Eosinophils # (auto) 0.07 K/uL (0.00-0.50); Eosinophils % (auto) 0.6 %; Hematocrit (blood only) 34.7 % (37.0-47.0); Hemoglobin 10.7 g/dl (12.0-16.0); Immature Granulocytes # (auto) 0.27 K/uL (0.01-0.20); Immature Granulocytes % (auto) 2.1 %; Lymphocytes # (auto) 3.68 K/uL (1.20-3.40); Mean Corpuscular Hemoglobin 26.8 pg (25.0-34.0); Mean Corpuscular Hgb Conc 30.8 g/dL (32.0-36.0); Mean Platelet Volume 10.6 fL (9.4-12.4); Monocytes # (auto) 1.05 K/uL (0.11-0.59); Monocytes % (auto) 8.3 %; Neutrophils # (auto) 7.61 K/uL (1.40-6.50); Neutrophils % (auto) 59.8 %; Nucleated RBC # (auto) 0.04 K/uL (0.00-0.12); Nucleated RBC % (auto) 0.3 %; Platelet Count 304 K/uL (130-400); RDW Standard Deviation 49.9 fL (36.4-46.3); Red Blood Count 3.99 M/uL (4.20-5.40)
[2023-12-16 08:34] LABS: Albumin Globulin Ratio 1.2 (0.9-2); Albumin Level 3.5 gm/dl (3.4-5.0); BUN Creatinine Ratio 44.9 (10-20); Bilirubin,Total 0.6 mg/dl (0.2-1.0); Calcium 8.4 mg/dl (8.6-10.3); Creatinine Clr Calc Pharmacy 68.7 ml/min; Est GFR (African American) 48.2 ml/min; Est GFR (Non-African American) 41.6 ml/min; Magnesium 2.2 mg/dl (1.7-2.4); Phosphorus 4.4 mg/dl (2.5-4.9); Potassium 3.9 mmol/L (3.5-5.1); Total Protein 6.5 gm/dl (6.0-8.3)
[2023-12-16] MEDS: cefTRIAXone SODIUM 2,000 MG in DEXTROSE 5 % MINI-B 50 ML IV SCH (09:00)
--- NOTE | 2023-12-16 09:49 | Hospitalist Progress Note ---
Date of Service December 16, 2023 Assessment & Plan (1) Atrial fibrillation with rapid ventricular response: (2) Elevated troponin: (3) COVID-19: (4) Hypoxia: (5) Abdominal pain: (6) Urolithiasis: (7) Generalized weakness: (8) Tachycardia-bradycardia syndrome: (9) Hypertension: (10) HLD (hyperlipidemia): (11) Hypothyroidism: (12) Morbid obesity with BMI of 60.0-69.9, adult: Plan Patient is a 63yoF with PMHx significant for paroxysmal atrial fibrillation anticoagulated on Eliquis, tachybradycardia syndrome refusing pacemaker, HTN, HLD, hypothyroidism, obesity, obstructive uropathy s/p L uretal stent placement on 11/08 admitted with R sided abdominal pain, FLETCHER and atrial fibrillation with RVR in the setting of a COVID infection. Atrial fibrillation with rapid ventricular response Presented with R abd pain, found to be in a fib with RVR At home, on sotalol 40mg BID with Eliquis for anticoagulation for PAF. Had not taken her AM dose of sotalol. On admission, P: 147, RR: 19, BP 111/71. K 3.8, Magnesium: 2.0, TSH: 5.9 T4 0.98 EKG on admission: A-fib RVR, rate 143 Patient denied chest pain, palpitations, shortness of breath. Dizziness reported with standing. In ER received a total of 15mg of IV Lopressor. Heart rate improved from 140s down to 120s. Patient given her morning dose of sotalol in the ER. Started on a diltiazem drip per cardiology recommendations Cardiology was then consulted- appreciate recs. Recommended: -holding home sotalol in setting of FLETCHER, transitioned at first to PO metoprolol tartrate 25mg QID with diltiazem drip. Continued Eliquis 5mg BID for anticoagulation -deferring repeat echo Has been further managed by Cardiology, appreciate daily recs: 12/06- pt with noted pauses, diltiazem drip rate decreased, heart rates remain controlled. Appreciate cardiology recs for further management 12/07-HR remains controlled on diltiazem drip and PO metoprolol regimen, cards advising to continue with anticoagulation, INR monitoring. 12/08- HR remains controlled on diltiazem drip and PO metoprolol regimen, on anticoagulation, INR wnl. Appreciate cardiology recs 12/09- Transitioned to amiodarone drip and PO metoprolol regimen, continue eliquis 12/10- on amio drip and metoprolol QID regimen, continue eliquis 12/11- on amio drip and metoprolol QID regimen, continue eliquis 12/12- transitioned to PO amiodarone, metoprolol d/c. Continue Eliquis, rate controlled 12/13- PO amiodarone d/c, on metoprolol 50mg TID, continue eliquis. Currently rate controlled. 12/14- Continue with regimen from day before, still rate controlled 12/15- switched to toprol xl 100mg BID, continue eliquis 12/16- Digoxin load today as HR in 120s. Continue toprol XL 100mg BID. Continue Eliquis. Diastolic congestive heart failure Lower extremity swelling Echo 2021- EF 65-70% On IV Lasix 40mg BID with potassium by cardiology 12/15- IV Lasix 40mg BID, spironolactone 12.5mg 12/15 continuing IV Lasix 40mg BID, spironolactone 12.5mg Elevated troponin Initial troponin 54. Downtrended to 41.3 EKG with noted atrial fibrillation with RVR Likely elevated secondary to demand ischemia from rapid A-fib, doubt ACS Tachycardia-bradycardia syndrome History of tachybrady syndrome. Follows with cardiology and EP. In past has refused pacemaker Monitor on telemetry Hypertension Hold losartan and HCTZ with current FLETCHER Monitor BPs UTI WBC elevated UA repeated and now with nitrites Started on Rocephin on 12/15 Urine Cx growing E coli- follow Cx to narrow abx Hematuria Anemia Pt with gross blood in urinary canister near bed previously Hgb in 9-10 range currently, was 11.4 on 11/08, appears her baseline is ~11 Appears anemia microcytic, MCV 88 Iron level 44 Urology consult- appreciate recs -per cardiology and urology, continue with anticoagulation at this time - 12/08- hernandez in, hand irrigate for clots retention, suprapubic pain Stable at this time COVID-19 Acute hypoxic respiratory failure Pt with sore throat, cough, congestion that started 3-4 days prior to arrival In ER 89% on room air up to 95% on 3L nasal cannula COVID-19 positive on 12/04/22 Chest xray with no acute changes In ER given dexamethasone 6 mg IV, was continued and completed course of treatment Airborne isolation for total of 10 days of pt's start of symptoms Supplemental oxygen as needed, wean as tolerated Incentive spirometry, flutter valve Further supportive treatment as needed Stable, currently on RA FLETCHER (acute kidney injury) Cr: 1.6 on admission, was 0.94 the day before Received NSS 2L, Cr slightly increased at 1.69 Received gentle diuresis with NSS @70 for 2 bags. However FLETCHER persists, Nephrology consult placed on 12/07, appreciate recs Monitor fluid balance Avoid contrast/nephrotoxic meds Monitor renal function 12/08- Cr improved at 1.4 today. Appreciate nephrology recs 12/09- Cr wnl, resolved. 12/10- Cr slightly elevated, continue to monitor 12/11- Cr back to normal limits 12/12- Cr elevated once more to 1.33 12/13- Cr 1.37, stable. Continue to monitor 12/14- Cr 1.32, stable 12/15- Cr 1.46, continue to monitor 12/16- Cr 1.36, continue to monitor Abdominal pain Hx of obstructive uropathy s/p stent placement Patient with reported right-sided abdominal pain that started morning of admission. 12/04/2023 (day before admission), CT abdomen pelvis noted LEFT-sided ureteral stent in place, bilateral intrarenal stones, proximal left ureteral stone, diverticulosis with no signs of diverticulitis. No acute appendicitis or bowel obstruction. No evidence of visceral or intra-abdominal injury. No acute fracture. Pain control Urology consult placed for hematuria (see above) but appreciate recs for this as well -pt now requesting to have stents removed but needs HR under control. Generalized weakness Ambulates with cane at baseline. Increased generalized weakness over the past several days. Likely secondary to underlying infection with COVID-19 12/04/2023: CT head: No acute intracranial abnormality Fall precautions PT/OT eval-recommending home with s/o support and HH services HLD (hyperlipidemia) Continue atorvastatin Hypothyroidism Continue levothyroxine Morbid obesity with BMI of 60.0-69.9, adult BMI: 67 Encourage weight loss Pt ordered bariatric bed for better comfort Constipation Docusate sodium 100mg BID PRN Miralax ordered PRN milk of magnesia Diet: HH DVT Prophylaxis: On Eliquis CODE STATUS: Full code Dispo: PT/OT recommending home with s/o support and HH services Admission and Anticipated Discharge Date Admission Date: December 05, 2023 Subjective Pt notes that she might have some anxiety today. States that she has not had a bowel movement for some time. Per nursing, she has been having big BMs. Otherwise denies acute concerns. Review of Systems Review of Systems: All systems reviewed & are unremarkable except as noted in Subjective Physical Exam Physical Exam: General: Alert, oriented. Psych: appropriate mood and affect Neuro:Some difficulty with movements HEENT: NC/AT CV: Heart sounds faint, irregular Resp: no increased effort of breathing Abdomen: Soft, nontender Extremities: edema in lower extremities bilaterally. Results & Data Results & Data Vital Signs (Past 12 Hours) Vital Signs Temp Pulse Pulse Pulse Resp BP Pulse Ox 12/16/23 07:14 36.5 C 76 18 138/71 95 12/16/23 06:01 112 H 12/16/23 03:13 36.8 C 118 H 18 108/68 92 12/15/23 22:21 36.4 C L 98 H 18 150/86 H 96 12/15/23 22:00 O2 Del Method 12/16/23 07:14 Room Air 12/16/23 06:01 12/16/23 03:13 Room Air 12/15/23 22:21 Room Air 12/15/23 22:00 Room Air
--- NOTE | 2023-12-16 11:55 | Cardiology Progress Note ---
Date of Service December 16, 2023 Assessment & Plan (1) Atrial fibrillation with rapid ventricular response: (2) COVID-19: (3) Morbid obesity with BMI of 60.0-69.9, adult: (4) Gross hematuria: Plan Complex 63-year-old female admitted with acute COVID infection. Covid-19 treatment as per hospitalist. Atrial fibrillation. Rhythm previously controlled on low-dose sotalol which was discontinued on December 05, 2023 due to acute renal dysfunction. Patient with moderate bradycardia, Tachy-Ranjan Syndrome prior to hospitalization, reverting back to atrial fibrillation earlier this hospitalization. Atrial fibrillation previously poorly tolerated though now asymptomatic, chronically prescribed Eliquis anticoagulation, and adverse to permanent pacemaker implantation. Via shared decision making on 12/13/2023, we changed to a rate control strategy. Amiodarone discontinued on 12/13/2023. Lopressor changed to Toprol XL 100 mg BID starting in the evening of 12/15. Heart rates were somewhat controlled overnight though now sustaining heart rates around 120 bpm. Will load with digoxin today. Decompensated heart failure. Presumably HFpEF. Prior echo in April 2022 with normal to hyperdynamic LV function, EF 65 to 70% without segmental wall motion abnormalities; moderate aortic valve sclerosis without significant stenosis. Continue IV furosemide 40 mg BID and oral spironolactone. Admission and Anticipated Discharge Date Admission Date: December 05, 2023 Supervising Physician Co-Signing Physician Notes Patient seen examined the bedside. Elevated heart rate on telemetry ranging from 100-130s. Notes mild palpitations with activity. Denies lightheadedness or dizziness. Nonproductive cough and hematuria unchanged. Fluid balance - 2800cc PE: VSS. Gen: NAD, AAOx3. Heart: Irregular rhythm, normal S1-S2. Lungs: Diminished breath sounds bilateral. No wheeze. Extremities: 2+ bilateral pretibial edema. A/P: Agree with above PA-C history, physical exam, assessment and plan. Continue rate control strategy with metoprolol and oral anticoagulation with Eliquis. Add digoxin 250 mcg IV x 1 now with a repeat dose in 6 hours. Continue Lasix 40 mg IV twice daily and spironolactone. Supplement potassium as indicated. Monitor daily weight, fluid balance, GFR, and electrolytes. Subjective Patient seen and examined. Chart, medications, and telemetry reviewed. Significant other, Naeem Atkins, at bedside. Feeling a little fuzzy in the head; has had before, thinks it due to not having and trying to force a bowel movement. No chest pain. No palpitations. Breathing is OK. Edema maybe slight better. I/O's: -812.4 mLs, -705.2 mL's, -943.1 mL's, -1,350 mL's, -2055 mL's, -875 mL's Telemetry: Atrial fibrillation currently 120 bpm. Patient compliant with Eliquis prior to and throughout hospitalization. Review of Systems Review of Systems: Complete review of systems is otherwise as stated above, negative, noncontributory Physical Exam Physical Exam: General: A&Ox3. NAD. Elevated BMI HENT: Normocephalic. Atraumatic. Eyes: PER. Conjunctiva pink, sclera clear. Neck: JVD. Heart: Irregularly irregular at 120 bpm. No murmur appreciated. Lungs: Clear to auscultation. Abdomen: +BS. Soft. Nontender. No masses or organomegaly. Extremities: 2+ distal edema. No clubbing. No cyanosis. Limited neurological examination is without focal deficits. Pulses: radial=2/4. Posterior tibial and dorsalis pedis pulses not appreciated Results & Data Vital Signs (Past 12 Hours) Vital Signs Temp Pulse Pulse Resp BP Pulse Ox O2 Del Method 12/16/23 07:14 36.5 C 76 18 138/71 95 Room Air 12/16/23 06:01 112 H 12/16/23 03:13 36.8 C 118 H 18 108/68 92 Room Air Laboratory Results Cardiac Enzymes 12/16/23 Range/Units 07:34 AST 12 L (13-39) U/L CBC 12/16/23 Range/Units 07:34 WBC 12.70 H (4.8-10.8) K/ul RBC 3.99 L (4.20-5.40) M/uL Hgb 10.7 L (12.0-16.0) g/dl Hct 34.7 L (37.0-47.0) % Plt Count 304 (130-400) K/uL Neut # (Auto) 7.61 H (1.40-6.50) K/uL Lymph # (Auto) 3.68 H (1.20-3.40) K/uL [place] # (Auto) 1.05 H (0.11-0.59) K/uL Eos # (Auto) 0.07 (0.00-0.50) K/uL Baso # (Auto) 0.02 (0.00-0.20) K/uL Comprehensive Metabolic Panel 12/16/23 Range/Units 07:34 Sodium 136 (136-145) mmol/L Potassium 3.9 (3.5-5.1) mmol/L Chloride 98 (98-107) mmol/L Carbon Dioxide 29 (21-32) mmol/L BUN 61 H (6-23) mg/dl Creatinine 1.36 H (0.6-1.2) mg/dl Glucose 91 (70-99(Fasting)) mg/dl Calcium 8.4 L (8.6-10.3) mg/dl AST 12 L (13-39) U/L ALT 19 (7-52) U/L Alkaline Phosphatase 45 (34-104) U/L Total Protein 6.5 (6.0-8.3) gm/dl Albumin 3.5 (3.4-5.0) gm/dl Intake and Output 12/15/23 12/16/23 12/16/23 22:59 06:59 14:59 Intake Total 200 / 850 50 / 50 Output Total 675 / 1725 Balance -475 / -875 50 / 50 Intake: IV 50 / 50 cefTRIAXone SODIUM 2,000 mg In 50 / 50 Dextrose 5 % Mini-B 50 ml @ 100 mls/hr IV Q24H [facility] Rx#: [id number] Oral 200 / 850 Output: Urine Amount (Catheter) / 172 Danielle/Indwelling / 172 Other: Weight 175 kg Weight Measurement Method Standing Scale Patient Weight 12/17/23 06:59 Weight 175 kg
[2023-12-16] MEDS: DIGOXIN 250 MCG in SYRINGE 9 ML IV ONE ×2 (12:34→16:37)
[2023-12-16] MEDS: hydrOXYzine HCl 25 MG TAB PO PRN (22:20)
--- NOTE | 2023-12-17 07:16 | Hospitalist Progress Note ---
Date of Service December 17, 2023 Assessment & Plan (1) Atrial fibrillation with rapid ventricular response: (2) Elevated troponin: (3) COVID-19: (4) Hypoxia: (5) Abdominal pain: (6) Urolithiasis: (7) Generalized weakness: (8) Tachycardia-bradycardia syndrome: (9) Hypertension: (10) HLD (hyperlipidemia): (11) Hypothyroidism: (12) Morbid obesity with BMI of 60.0-69.9, adult: Plan Ms. Cox is a 63 year old woman with PMHx significant for paroxysmal atrial fibrillation anticoagulated on Eliquis, tachybradycardia syndrome refusing pacemaker, HTN, HLD, hypothyroidism, obesity, obstructive uropathy s/p L uretal stent placement on 11/08 admitted with R sided abdominal pain, FLETCHER and atrial fibrillation with RVR in the setting of a COVID infection and UTI. Patient's course complicated by on sung atrial fibrillation. #Atrial fibrillation with rapid ventricular response Presented with R abd pain, found to be in a fib with RVR Home: sotalol 40mg BID with Eliquis for anticoagulation for PAF. Had not taken her AM dose of sotalol. On admission, P: 147, RR: 19, BP 111/71. K 3.8, Magnesium: 2.0, TSH: 5.9 T4 0.98 EKG on admission: A-fib RVR, rate 143 In ER received a total of 15mg of IV Lopressor. Heart rate improved from 140s down to 120s. Patient given her morning dose of sotalol in the ER. Dilt drip started to no avail. Cardiology was then consulted- appreciate recs. Recommended: -holding home sotalol in setting of FLETCHER, transitioned at first to PO metoprolol tartrate 25mg QID with diltiazem drip. Continued Eliquis 5mg BID for anticoagulation -deferring repeat echo Cardiology recommendations on going, -Transitioned to amiodarone drip from 12/09-12/12; discontinued PO amiodarone; rates remained elevated, loaded with digoxin 12/16. -Continue digoxin today 500mcg total, IV lasix 100mg TID, spironolactone 25mg #Acute on chronic heart failure with preserved ejection fraction Echo 2021- EF 65-70% Aggressive ongoing diuersis with lasix 100mg TID Potassium supplementation Continue spironolactone 25mg daily and metoprolol 100mg XL BID #Elevated troponin *resolved Initial troponin 54. Downtrended to 41.3 EKG with noted atrial fibrillation with RVR Likely elevated secondary to demand ischemia from rapid A-fib, doubt ACS #Tachycardia-bradycardia syndrome History of tachybrady syndrome. Follows with cardiology and EP. In past has refused pacemaker Monitor on telemetry #Hypertension Hold home losartan and HCTZ with current FLETCHER Monitor BPs Currently on metoprolol 100mg BID, lasix IV TID, spironolactone 25mg daily #Acute UTI WBC elevated UA repeated and now with nitrites Started on Rocephin on 12/15 Urine Cx growing E coli- follow Cx to narrow abx -Continue IV abx until discussion with Urology regarding stents #Gross Hematuria #Acute on Chronic microcytic anemia Pt with gross blood in urinary canister near bed previously Hgb in 9-10 range currently, was 11.4 on 11/08, appears her baseline is ~11 Iron level 44, ferritin 313 Urology consult- appreciate recs -per cardiology and urology, continue with anticoagulation at this time - 12/08- hernandez in, hand irrigate for clots retention, suprapubic pain PLan to discuss with urology next steps given UTI and stents #COVID-19 #Acute hypoxic respiratory failure, resolved Pt with sore throat, cough, congestion that started 3-4 days prior to arrival In ER 89% on room air up to 95% on 3L nasal cannula COVID-19 positive on 12/04/22 Chest xray with no acute changes In ER given dexamethasone 6 mg IV, was continued and completed course of treatment Airborne isolation for total of 10 days of pt's start of symptoms Supplemental oxygen as needed, wean as tolerated Incentive spirometry, flutter valve Further supportive treatment as needed Stable, currently on RA #FLETCHER (acute kidney injury) *improving Likely 2/2 a fib RVR and infection Cr: 1.6 on admission, was 0.94 the day before Received gentle diuresis with NSS @70 for 2 bags. Nephrology consult placed on 12/07 -continue to trend, no further IVF required Monitor fluid balance Avoid contrast/nephrotoxic meds Monitor renal function, continue to trend--1.26 this am #obstructive uropathy s/p stent placement 10/2023 Patient with reported right-sided abdominal pain that started morning of admission. 12/04/2023 (day before admission), CT abdomen pelvis noted LEFT-sided ureteral stent in place, bilateral intrarenal stones, proximal left ureteral stone, diverticulosis with no signs of diverticulitis. No acute appendicitis or bowel obstruction. No evidence of visceral or intra-abdominal injury. No acute fracture. Pain control Urology consult placed for hematuria (see above) but appreciate recs for this as well -pt now requesting to have stents removed but needs HR under control -Plan to discuss with urology once A Fib is controlled. #Generalized weakness Ambulates with cane at baseline. Increased generalized weakness over the past several days. Likely secondary to underlying infection with COVID-19 12/04/2023: CT head: No acute intracranial abnormality Fall precautions PT/OT eval-recommending home with s/o support and HH services #HLD (hyperlipidemia) Continue atorvastatin #Hypothyroidism Continue levothyroxine #Morbid obesity with BMI of 60.0-69.9, adult BMI: 68.3 Encourage weight loss Pt ordered bariatric bed for better comfort Constipation Docusate sodium 100mg BID PRN Miralax ordered PRN milk of magnesia Diet: HH DVT Prophylaxis: On Eliquis CODE STATUS: Full code Dispo: PT/OT recommending home with s/o support and HH services Admission and Anticipated Discharge Date Admission Date: December 05, 2023 Subjective NAEO Reports feeling well and trying to work with PT/OT Denies chest pain or sensation of palpitations Physical Exam Constitutional: WD/WN, vitals as above Respiratory: difficult to appreciate 2/2 habitus Cardiovascular: irregular Results & Data Results & Data Vital Signs (Past 12 Hours) Vital Signs Temp Pulse Pulse Pulse Resp BP Pulse Ox 12/17/23 06:59 36.7 C 77 18 120/63 97 12/17/23 03:22 36.9 C 123 H 20 137/81 94 12/16/23 22:41 36.7 C 130 H 18 132/51 L 94 12/16/23 22:00 12/16/23 21:57 123 H 12/16/23 19:58 36.6 C 130 H 74 20 142/84 H 94 O2 Del Method 12/17/23 06:59 Room Air 12/17/23 03:22 Room Air 12/16/23 22:41 Room Air 12/16/23 22:00 Room Air 12/16/23 21:57 12/16/23 19:58 Room Air Laboratory Results Short CBC 12/17/23 Range/Units 07:30 WBC 12.65 H (4.8-10.8) K/ul Hgb 10.1 L (12.0-16.0) g/dl Hct 31.4 L (37.0-47.0) % Plt Count 283 (130-400) K/uL BMP 12/17/23 07:30 Sodium 135 L Potassium 3.8 Chloride 97 L Carbon Dioxide 30 BUN 56 H Creatinine 1.29 H Glucose 93 Calcium 8.3 L Medications Administered Home Medications Medication Instructions Recorded Confirmed Last Taken apixaban 5 mg tablet (Eliquis) 5 mg PO BID #60 tabs 10/23/21 12/05/23 12/04/23 levothyroxine 100 mcg tablet 100 mcg PO QAM 10/23/21 12/05/23 12/04/23 (Euthyrox) alendronate 70 mg tablet 70 mg PO WK 05/15/22 12/05/23 12/02/23 hydrochlorothiazide 25 mg tablet 25 mg PO QAM 05/16/22 12/05/23 12/17/22 hydroxyzine HCl 25 mg tablet 25 - 50 mg (1 - 2 x 25 mg) PO Q6H 07/10/22 12/05/23 Unknown PRN itching #20 tabs sotalol 80 mg tablet 40 mg PO BID17 11/08/23 12/05/23 12/04/23 valacyclovir 1 gram tablet See Rx Instructions .Route 11/08/23 12/05/23 Unknown (Valtrex) .COMPLEX PRN Cold Sores diclofenac sodium 1 % topical gel 4 g EXT Q6H PRN knee pain #100 11/11/23 12/05/23 Unknown (Voltaren Arthritis Pain) grams gabapentin 300 mg capsule 300 mg PO HS #30 caps 11/11/23 12/05/23 Unknown miconazole nitrate 2 % topical 1 applic EXT BID PRN fungal 11/11/23 12/05/23 Unknown powder (Desenex) infection #85 grams ergocalciferol (vitamin D2) 1,250 50,000 unit PO .weekly 6 weeks #6 11/13/23 12/05/23 12/01/23 mcg (50,000 unit) capsule (Vitamin caps D2) atorvastatin 40 mg tablet 40 mg PO DAILY 12/05/23 12/05/23 12/04/23 benzonatate 100 mg capsule 100 mg PO TID PRN cough #20 caps 12/05/23 12/05/23 Unknown losartan 50 mg tablet 50 mg PO DAILY 12/05/23 12/05/23 12/04/23 nirmatrelvir 300 mg (150 mg See Rx Instructions PO .COMPLEX 12/05/23 12/05/23 Unknown x2)-ritonavir 100 mg tablet,dose #30 tabs pack (Paxlovid) Active Medications Generic Name Dose Route Start Last Admin Trade Name Freq PRN Reason Stop Dose Admin Acetaminophen 1,000 mg 12/09/23 11:59 12/17/23 00:32 Acetaminophen 500 Mg Tab PO 01/04/24 14:19 1,000 mg Q8H PRN Administration Pain or Fever Apixaban 5 mg 12/05/23 21:00 12/17/23 09:17 Apixaban 5 Mg Tablet PO 01/04/24 20:59 5 mg BID BALJEET Administration Atorvastatin Calcium 40 mg 12/06/23 09:00 12/17/23 09:18 Atorvastatin 40 Mg Tab PO 01/05/24 08:59 40 mg DAILY BALJEET Administration Diclofenac Sodium 4 gm 12/05/23 14:20 12/16/23 16:43 Diclofenac Sod 1% Gel 100 Gm Tube EXT 01/04/24 14:19 4 gm Q6H PRN Administration knee pain Protocol Docusate Sodium 100 mg 12/11/23 21:00 12/17/23 09:17 Docusate Sodium 100 Mg Cap PO 01/10/24 20:59 100 mg BID BALJEET Administration Ergocalciferol 50,000 units 12/08/23 09:00 12/15/23 09:10 Ergocalciferol 50,000 Units 1250 Mcg Cap PO 01/07/24 08:59 50,000 units We@0900 BALJEET Administration Furosemide 40 mg 12/17/23 14:00 12/17/23 12:30 Furosemide 40 Mg/4 Ml Vial IV 01/16/24 13:59 40 mg TID BALJEET Administration Gabapentin 300 mg 12/05/23 21:00 12/16/23 22:16 Gabapentin 300 Mg Cap PO 01/04/24 20:59 300 mg HS BALJEET Administration Guaifenesin 1,200 mg 12/05/23 21:00 12/17/23 09:17 Guaifenesin 600 Mg Tabcr PO 01/04/24 20:59 1,200 mg Q12 BALJEET Administration Hydroxyzine HCl 25 mg 12/16/23 16:01 12/17/23 09:17 Hydroxyzine Hcl 25 Mg Tab PO 01/15/24 16:00 25 mg Q6H PRN Administration Anxiety/Insomnia Ceftriaxone Sodium 2,000 mg/ 50 mls @ 100 mls/hr 12/16/23 09:00 12/17/23 10:03 Dextrose IV 12/26/23 08:59 Infused Q24H BALJEET Infusion Protocol Levothyroxine Sodium 100 mcg 12/06/23 06:30 12/17/23 09:19 Levothyroxine Sodium 100 Mcg Tablet PO 01/05/24 06:29 100 mcg DAILYBB BALJEET Administration Lidocaine 1 patch 12/09/23 09:15 12/17/23 09:18 Lidocaine 5% 1 Patch TD 01/08/24 09:14 1 patch QAM BALJEET Administration Metoprolol Succinate 100 mg 12/15/23 21:00 12/17/23 09:18 Metoprolol Succ 50mg Ext Rel Tab PO 01/14/24 20:59 100 mg BID BALJEET Administration Miconazole Nitrate 1 appln 12/06/23 00:30 12/17/23 09:20 Miconazole Nitrate Powder 85 Gm EXT 01/05/24 00:29 1 appln BID BALJEET Administration Miscellaneous 1 each 12/09/23 21:00 12/16/23 22:17 Remove Lidoderm Patch N/A 01/08/24 20:59 1 each DAILY@2100 BALJEET Administration Oxycodone HCl 7.5 mg 12/09/23 12:06 12/17/23 15:43 Oxycodone Hcl Ir 5 Mg Tab (Immediate Release) PO 12/23/23 11:58 7.5 mg Q4H PRN Administration Moderate Pain (Scale 4, 5, 6) Polyethylene Glycol 17 gm 12/05/23 14:20 12/16/23 08:58 Polyethylene (Miralax) 17 Gm Pack PO 01/04/24 14:19 17 gm DAILY PRN Administration Constipation
[2023-12-17 08:39] LABS: Basophils # (auto) 0.01 K/uL (0.00-0.20); Basophils % (auto) 0.1 %; Eosinophils # (auto) 0.07 K/uL (0.00-0.50); Eosinophils % (auto) 0.6 %; Hematocrit (blood only) 31.4 % (37.0-47.0); Hemoglobin 10.1 g/dl (12.0-16.0); Immature Granulocytes # (auto) 0.18 K/uL (0.01-0.20); Immature Granulocytes % (auto) 1.4 %; Lymphocytes # (auto) 3.43 K/uL (1.20-3.40); Lymphocytes % (auto) 27.1 %; Mean Corpuscular Hemoglobin 27.6 pg (25.0-34.0); Mean Corpuscular Hgb Conc 32.2 g/dL (32.0-36.0); Mean Corpuscular Volume 85.8 fL (80.0-100.0); Mean Platelet Volume 10.8 fL (9.4-12.4); Monocytes # (auto) 1.04 K/uL (0.11-0.59); Monocytes % (auto) 8.2 %; Neutrophils # (auto) 7.92 K/uL (1.40-6.50); Neutrophils % (auto) 62.6 %; Nucleated RBC # (auto) 0.02 K/uL (0.00-0.12); Nucleated RBC % (auto) 0.2 %; Platelet Count 283 K/uL (130-400); RDW Coefficient of Variation 16.2 % (11.5-14.5); RDW Standard Deviation 49.4 fL (36.4-46.3); Red Blood Count 3.66 M/uL (4.20-5.40); White Blood Count 12.65 K/ul (4.8-10.8)
[2023-12-17 08:58] LABS: BUN Creatinine Ratio 43.4 (10-20); Calcium 8.3 mg/dl (8.6-10.3); Creatinine Clr Calc Pharmacy 72.4 ml/min; Est GFR (African American) 51.4 ml/min; Est GFR (Non-African American) 44.3 ml/min; Magnesium 2.2 mg/dl (1.7-2.4); Phosphorus 3.9 mg/dl (2.5-4.9); Potassium 3.8 mmol/L (3.5-5.1)
--- NOTE | 2023-12-17 11:50 | Cardiology Progress Note ---
Date of Service December 17, 2023 Assessment & Plan (1) Atrial fibrillation with rapid ventricular response: (2) COVID-19: (3) Morbid obesity with BMI of 60.0-69.9, adult: (4) Gross hematuria: Plan Complex 63-year-old female admitted with acute COVID infection. Atrial fibrillation. Rhythm previously controlled on low-dose sotalol which was discontinued on December 05, 2023 due to acute renal dysfunction. Patient with moderate bradycardia, Tachy-Ranjan Syndrome prior to hospitalization, reverting back to atrial fibrillation earlier this hospitalization. Atrial fibrillation previously poorly tolerated though now asymptomatic, chronically prescribed Eliquis anticoagulation, and adverse to permanent pacemaker implantation. Via shared decision making on 12/13/2023, we changed to a rate control strategy. Amiodarone discontinued on 12/13/2023. Lopressor changed to Toprol XL 100 mg BID starting in the evening of 12/15. Patient received IV digoxin x 2 on 12/16/2023. Will continue digoxin loading today then add oral. May need more metoprolol pending BP. Ultimately, patient may require EP evaluation and consideration for device implantation followed by AV junction ablation. Decompensated heart failure. Presumably HFpEF. Prior echo in April 2022 with normal to hyperdynamic LV function, EF 65 to 70% without segmental wall motion abnormalities; moderate aortic valve sclerosis without significant stenosis. Increase IV furosemide 40 mg TID. Increase supplemental potassium to 40 BID. Increase oral spironolactone from 12.5 mg/day to 25 mg/day. Admission and Anticipated Discharge Date Admission Date: December 05, 2023 Supervising Physician Co-Signing Physician Notes Patient seen examined the bedside. Elevated heart rate on telemetry ranging from 100-130s. Notes mild palpitations with activity. Denies lightheadedness or dizziness. Nonproductive cough and hematuria unchanged. Fluid balance - 1690cc PE: VSS. Gen: NAD, AAOx3. Heart: Irregular rhythm, normal S1-S2. Lungs: Diminished breath sounds bilateral. No wheeze. Extremities: 2-3+ bilateral pretibial edema. A/P: Agree with above PA-C history, assessment and plan. Continue rate control strategy with metoprolol, digoxin, and oral anticoagulation with Eliquis. Patient will receive an additional 500 mcg of digoxin today. Titrate Lasix to 40 mg 3 times daily. Continue spironolactone. Monitor daily weight, fluid balance, GFR, and electrolytes. Subjective Patient seen and examined. Chart, medications, and telemetry reviewed. Significant other, Naeem Atkins, at bedside. Feeling OK. No longer fuzzy in the head. Denies chest pain, tachypalpitations, or increased shortness of breath. Edema unchanged. I/O's: -812.4 mLs, -705.2 mL's, -943.1 mL's, -1,350 mL's, -2055 mL's, -875 mL's, -1,590 mL' Telemetry: Atrial fibrillation currently 110 bpm. Patient compliant with Eliquis prior to and throughout hospitalization. Review of Systems Review of Systems: Complete review of systems is otherwise as stated above, negative, noncontributory Results & Data Vital Signs (Past 12 Hours) Vital Signs Temp Pulse Pulse Resp BP BP Pulse Ox 12/17/23 11:16 36.6 C 80 18 135/64 96 12/17/23 07:00 98 H 12/17/23 06:59 36.7 C 77 18 120/63 97 12/17/23 03:22 36.9 C 123 H 20 137/81 94 O2 Del Method 12/17/23 11:16 Room Air 12/17/23 07:00 12/17/23 06:59 Room Air 12/17/23 03:22 Room Air Laboratory Results CBC 12/17/23 Range/Units 07:30 WBC 12.65 H (4.8-10.8) K/ul RBC 3.66 L (4.20-5.40) M/uL Hgb 10.1 L (12.0-16.0) g/dl Hct 31.4 L (37.0-47.0) % Plt Count 283 (130-400) K/uL Neut # (Auto) 7.92 H (1.40-6.50) K/uL Lymph # (Auto) 3.43 H (1.20-3.40) K/uL Starr # (Auto) 1.04 H (0.11-0.59) K/uL Eos # (Auto) 0.07 (0.00-0.50) K/uL Baso # (Auto) 0.01 (0.00-0.20) K/uL Comprehensive Metabolic Panel 12/17/23 Range/Units 07:30 Sodium 135 L (136-145) mmol/L Potassium 3.8 (3.5-5.1) mmol/L Chloride 97 L (98-107) mmol/L Carbon Dioxide 30 (21-32) mmol/L BUN 56 H (6-23) mg/dl Creatinine 1.29 H (0.6-1.2) mg/dl Glucose 93 (70-99(Fasting)) mg/dl Calcium 8.3 L (8.6-10.3) mg/dl Intake and Output 12/16/23 12/17/23 12/17/23 22:59 06:59 14:59 Intake Total 400 / 1110 360 / 1110 50 / 50 Output Total 2200 / 2700 500 / 2700 Balance -1800 / -1590 -140 / -1590 50 / 50 Intake: IV 50 / 50 cefTRIAXone SODIUM 2,000 mg In 50 / 50 Dextrose 5 % Mini-B 50 ml @ 100 mls/hr IV Q24H [facility] Rx#: [id number] Oral 400 / 1060 360 / 1060 Output: Urine Amount (Catheter) 2200 / 2700 500 / 2700 Danielle/Indwelling 2200 / 2700 500 / 2700
[2023-12-17] MEDS: DIGOXIN 250 MCG in SYRINGE 9 ML IV ONE ×2 (12:29→15:50)
[2023-12-17] MEDS: FUROSEMIDE 40 MG/4 ML VIAL IV SCH (12:30)
[2023-12-17] MEDS: POTASSIUM CHLORIDE CRTAB 20 MEQ TABCR PO SCH (20:56)
[2023-12-18 06:21] LABS: Hematocrit (blood only) 31.8 % (37.0-47.0); Hemoglobin 10.2 g/dl (12.0-16.0); Mean Corpuscular Hemoglobin 27.6 pg (25.0-34.0); Mean Corpuscular Hgb Conc 32.1 g/dL (32.0-36.0); Mean Corpuscular Volume 86.2 fL (80.0-100.0); Mean Platelet Volume 10.7 fL (9.4-12.4); Nucleated RBC # (auto) 0.02 K/uL (0.00-0.12); Nucleated RBC % (auto) 0.2 %; Platelet Count 280 K/uL (130-400); RDW Coefficient of Variation 16.2 % (11.5-14.5); RDW Standard Deviation 49.4 fL (36.4-46.3); Red Blood Count 3.69 M/uL (4.20-5.40); White Blood Count 12.37 K/ul (4.8-10.8)
[2023-12-18 06:31] LABS: BUN Creatinine Ratio 36.4 (10-20); Calcium 8.8 mg/dl (8.6-10.3); Creatinine Clr Calc Pharmacy 72.3 ml/min; Est GFR (African American) 51.4 ml/min; Est GFR (Non-African American) 44.3 ml/min; Magnesium 2.2 mg/dl (1.7-2.4); Phosphorus 3.2 mg/dl (2.5-4.9); Potassium 3.9 mmol/L (3.5-5.1)
[2023-12-18] MEDS: SPIRONOLACTONE 25 MG TAB PO SCH (08:12)
--- NOTE | 2023-12-18 16:14 | Hospitalist Progress Note ---
Date of Service December 18, 2023 Assessment & Plan (1) Atrial fibrillation with rapid ventricular response: (2) Elevated troponin: (3) COVID-19: (4) Hypoxia: (5) Abdominal pain: (6) Urolithiasis: (7) Generalized weakness: (8) Tachycardia-bradycardia syndrome: (9) Hypertension: (10) HLD (hyperlipidemia): (11) Hypothyroidism: (12) Morbid obesity with BMI of 60.0-69.9, adult: Plan Ms. Cox is a 63 year old woman with PMHx significant for paroxysmal atrial fibrillation anticoagulated on Eliquis, tachybradycardia syndrome refusing pacemaker, HTN, HLD, hypothyroidism, obesity, obstructive uropathy s/p L uretal stent placement on 11/08 admitted with R sided abdominal pain, FLETCHER and atrial fibrillation with RVR in the setting of a COVID infection and UTI. Patient's course complicated by on sung atrial fibrillation. #Atrial fibrillation with rapid ventricular response Presented with R abd pain, found to be in a fib with RVR Home: sotalol 40mg BID with Eliquis for anticoagulation for PAF. Had not taken her AM dose of sotalol. On admission, P: 147, RR: 19, BP 111/71. K 3.8, Magnesium: 2.0, TSH: 5.9 T4 0.98 EKG on admission: A-fib RVR, rate 143 In ER received a total of 15mg of IV Lopressor. Heart rate improved from 140s down to 120s. Patient given her morning dose of sotalol in the ER. Dilt drip started to no avail. Cardiology was then consulted- appreciate recs. Recommended: -holding home sotalol in setting of FLETCHER, transitioned at first to PO metoprolol tartrate 25mg QID with diltiazem drip. Continued Eliquis 5mg BID for anticoagulation -deferring repeat echo Cardiology recommendations on going, -Transitioned to amiodarone drip from 12/09-12/12; discontinued PO amiodarone; rates remained elevated, loaded with digoxin 12/16. -Continue digoxin today 500mcg total, IV lasix 100mg TID, spironolactone 25mg #Acute on chronic heart failure with preserved ejection fraction Echo 2021- EF 65-70% Aggressive ongoing diuersis with lasix 100mg TID Potassium supplementation Continue spironolactone 25mg daily and metoprolol 100mg XL BID Diuresis via IV until renal function uptrends #Elevated troponin *resolved Initial troponin 54. Downtrended to 41.3 EKG with noted atrial fibrillation with RVR Likely elevated secondary to demand ischemia from rapid A-fib, doubt ACS #Tachycardia-bradycardia syndrome History of tachybrady syndrome. Follows with cardiology and EP. In past has refused pacemaker Monitor on telemetry #Hypertension Hold home losartan and HCTZ with current FLETCHER Monitor BPs Currently on metoprolol 100mg BID, lasix IV TID, spironolactone 25mg daily #Acute UTI 2/2 e coli WBC elevated UA repeated and now with nitrites Continue Rocephin on 12/15 Urine Cx growing E coli- follow Cx to narrow abx -Continue IV abx until discussion with Urology regarding stents #Gross Hematuria #Acute on Chronic microcytic anemia Pt with gross blood in urinary canister near bed previously Hgb in 9-10 range currently, was 11.4 on 11/08, appears her baseline is ~11 Iron level 44, ferritin 313 Urology consult- appreciate recs -per cardiology and urology, continue with anticoagulation at this time - 12/08- hernandez in, hand irrigate for clots retention, suprapubic pain Plan to discuss with urology next steps given UTI and stents Urine appears more clear today, still muddy brown, but likely 2/2 resolving infection #COVID-19 *resoled #Acute hypoxic respiratory failure, resolved Pt with sore throat, cough, congestion that started 3-4 days prior to arrival In ER 89% on room air up to 95% on 3L nasal cannula COVID-19 positive on 12/04/22, enhanced precautions completed, completed dex course Chest xray with no acute changes Supplemental oxygen as needed, wean as tolerated Incentive spirometry, flutter valve Further supportive treatment as needed Stable, currently on RA #FLETCHER (acute kidney injury) *improving Likely 2/2 a fib RVR and infection Cr: 1.6 on admission, was 0.94 the day before Received gentle diuresis with NSS @70 for 2 bags. Nephrology consult placed on 12/07 -continue to trend, no further IVF required Monitor fluid balance Avoid contrast/nephrotoxic meds Monitor renal function, continue to trend--1.29 this am continue aggressive diuresis until renal function unable to tolerate #obstructive uropathy s/p stent placement 10/2023 Patient with reported right-sided abdominal pain that started morning of admission. 12/04/2023 (day before admission), CT abdomen pelvis noted LEFT-sided ureteral stent in place, bilateral intrarenal stones, proximal left ureteral stone, diverticulosis with no signs of diverticulitis. No acute appendicitis or bowel obstruction. No evidence of visceral or intra-abdominal injury. No acute fracture. Pain control Urology consult placed for hematuria (see above) but appreciate recs for this as well -pt now requesting to have stents removed but needs HR under control -Plan to discuss with urology once A Fib is controlled. #Generalized weakness Ambulates with cane at baseline. Increased generalized weakness over the past several days. Likely secondary to underlying infection with COVID-19 12/04/2023: CT head: No acute intracranial abnormality Fall precautions PT/OT eval-recommending home with s/o support and HH services #HLD (hyperlipidemia) Continue atorvastatin #Hypothyroidism Continue levothyroxine #Morbid obesity with BMI of 60.0-69.9, adult BMI: 68.3 Encourage weight loss Pt ordered bariatric bed for better comfort Constipation Docusate sodium 100mg BID PRN Miralax ordered PRN milk of magnesia Diet: HH DVT Prophylaxis: On Eliquis CODE STATUS: Full code Dispo: PT/OT recommending home with s/o support and HH services Admission and Anticipated Discharge Date Admission Date: December 05, 2023 Subjective NAEO Denies acute symptoms, reports multiple stressors at home and expresses desire to improve. Feels upset with situation, but understands the need for prolonged hospitalization. Demonstrates fairly poor insight into medical condition, but is information seeking with prompting/support of Physical Exam Constitutional: WD/WN, vitals as above Respiratory: difficult to appreciate 2/2 habitus Cardiovascular: irregular, tachycardic Gastrointestinal (Abdomen): Urine in hernandez brown Results & Data Results & Data Vital Signs (Past 12 Hours) Vital Signs Temp Pulse Pulse Resp BP Pulse Ox O2 Del Method 12/18/23 15:48 126 H 12/18/23 15:16 36.5 C 89 20 105/72 96 Room Air 12/18/23 12:31 Room Air 12/18/23 11:33 36.6 C 80 18 145/80 H 95 Room Air 12/18/23 08:03 36.4 C L 72 20 152/67 H 96 Room Air 12/18/23 08:00 93 H 12/18/23 08:00 Room Air Laboratory Results Short CBC 12/18/23 Range/Units 05:26 WBC 12.37 H (4.8-10.8) K/ul Hgb 10.2 L (12.0-16.0) g/dl Hct 31.8 L (37.0-47.0) % Plt Count 280 (130-400) K/uL BMP 12/18/23 05:26 Sodium 134 L Potassium 3.9 Chloride 96 L Carbon Dioxide 30 BUN 47 H Creatinine 1.29 H Glucose 106 H Calcium 8.8 Medications Administered Home Medications Medication Instructions Recorded Confirmed Last Taken apixaban 5 mg tablet (Eliquis) 5 mg PO BID #60 tabs 10/23/21 12/05/23 12/04/23 levothyroxine 100 mcg tablet 100 mcg PO QAM 10/23/21 12/05/23 12/04/23 (Euthyrox) alendronate 70 mg tablet 70 mg PO WK 05/15/22 12/05/23 12/02/23 hydrochlorothiazide 25 mg tablet 25 mg PO QAM 05/16/22 12/05/23 12/17/22 hydroxyzine HCl 25 mg tablet 25 - 50 mg (1 - 2 x 25 mg) PO Q6H 07/10/22 12/05/23 Unknown PRN itching #20 tabs sotalol 80 mg tablet 40 mg PO BID17 11/08/23 12/05/23 12/04/23 valacyclovir 1 gram tablet See Rx Instructions .Route 11/08/23 12/05/23 Unknown (Valtrex) .COMPLEX PRN Cold Sores diclofenac sodium 1 % topical gel 4 g EXT Q6H PRN knee pain #100 11/11/23 12/05/23 Unknown (Voltaren Arthritis Pain) grams gabapentin 300 mg capsule 300 mg PO HS #30 caps 11/11/23 12/05/23 Unknown miconazole nitrate 2 % topical 1 applic EXT BID PRN fungal 11/11/23 12/05/23 Unknown powder (Desenex) infection #85 grams ergocalciferol (vitamin D2) 1,250 50,000 unit PO .weekly 6 weeks #6 11/13/23 12/05/23 12/01/23 mcg (50,000 unit) capsule (Vitamin caps D2) atorvastatin 40 mg tablet 40 mg PO DAILY 12/05/23 12/05/23 12/04/23 benzonatate 100 mg capsule 100 mg PO TID PRN cough #20 caps 12/05/23 12/05/23 Unknown losartan 50 mg tablet 50 mg PO DAILY 12/05/23 12/05/23 12/04/23 nirmatrelvir 300 mg (150 mg See Rx Instructions PO .COMPLEX 12/05/23 12/05/23 Unknown x2)-ritonavir 100 mg tablet,dose #30 tabs pack (Paxlovid) Active Medications Generic Name Dose Route Start Last Admin Trade Name Freq PRN Reason Stop Dose Admin Acetaminophen 1,000 mg 12/09/23 11:59 12/17/23 00:32 Acetaminophen 500 Mg Tab PO 01/04/24 14:19 1,000 mg Q8H PRN Administration Pain or Fever Apixaban 5 mg 12/05/23 21:00 12/18/23 08:12 Apixaban 5 Mg Tablet PO 01/04/24 20:59 5 mg BID BALJEET Administration Atorvastatin Calcium 40 mg 12/06/23 09:00 12/18/23 08:12 Atorvastatin 40 Mg Tab PO 01/05/24 08:59 40 mg DAILY BALJEET Administration Diclofenac Sodium 4 gm 12/05/23 14:20 12/18/23 08:13 Diclofenac Sod 1% Gel 100 Gm Tube EXT 01/04/24 14:19 4 gm Q6H PRN Administration knee pain Protocol Docusate Sodium 100 mg 12/11/23 21:00 12/18/23 08:24 Docusate Sodium 100 Mg Cap PO 01/10/24 20:59 100 mg BID BALJEET Administration Ergocalciferol 50,000 units 12/08/23 09:00 12/15/23 09:10 Ergocalciferol 50,000 Units 1250 Mcg Cap PO 01/07/24 08:59 50,000 units We@0900 BALJEET Administration Furosemide 40 mg 12/17/23 14:00 12/18/23 15:18 Furosemide 40 Mg/4 Ml Vial IV 01/16/24 13:59 40 mg TID BALJEET Administration Gabapentin 300 mg 12/05/23 21:00 12/17/23 20:57 Gabapentin 300 Mg Cap PO 01/04/24 20:59 300 mg HS BALJEET Administration Guaifenesin 1,200 mg 12/05/23 21:00 12/18/23 08:11 Guaifenesin 600 Mg Tabcr PO 01/04/24 20:59 1,200 mg Q12 BALJEET Administration Hydroxyzine HCl 25 mg 12/16/23 16:01 12/17/23 09:17 Hydroxyzine Hcl 25 Mg Tab PO 01/15/24 16:00 25 mg Q6H PRN Administration Anxiety/Insomnia Ceftriaxone Sodium 2,000 mg/ 50 mls @ 100 mls/hr 12/16/23 09:00 12/18/23 09:46 Dextrose IV 12/26/23 08:59 Infused Q24H [facility]JEET Infusion Protocol Levothyroxine Sodium 100 mcg 12/06/23 06:30 12/18/23 06:10 Levothyroxine Sodium 100 Mcg Tablet PO 01/05/24 06:29 100 mcg DAILYBB [facility]JEET Administration Lidocaine 1 patch 12/09/23 09:15 12/18/23 08:13 Lidocaine 5% 1 Patch TD 01/08/24 09:14 1 patch QAM BALJEET Administration Metoprolol Succinate 100 mg 12/15/23 21:00 12/18/23 08:12 Metoprolol Succ 50mg Ext Rel Tab PO 01/14/24 20:59 100 mg BID BALJEET Administration Miconazole Nitrate 1 appln 12/06/23 00:30 12/18/23 08:14 Miconazole Nitrate Powder 85 Gm EXT 01/05/24 00:29 1 appln BID BALJEET Administration Miscellaneous 1 each 12/09/23 21:00 12/17/23 20:55 Remove Lidoderm Patch N/A 01/08/24 20:59 1 each DAILY@2100 BALJEET Administration Oxycodone HCl 7.5 mg 12/09/23 12:06 12/18/23 08:08 Oxycodone Hcl Ir 5 Mg Tab (Immediate Release) PO 12/23/23 11:58 7.5 mg Q4H PRN Administration Moderate Pain (Scale 4, 5, 6) Polyethylene Glycol 17 gm 12/05/23 14:20 12/16/23 08:58 Polyethylene (Miralax) 17 Gm Pack PO 01/04/24 14:19 17 gm DAILY PRN Administration Constipation Potassium Chloride 40 meq 12/17/23 21:00 12/18/23 08:12 Potassium Chloride Crtab 20 Meq Tabcr PO 01/16/24 20:59 40 meq BID BALJEET Administration Spironolactone 25 mg 12/18/23 09:00 12/18/23 08:12 Spironolactone 25 Mg Tab PO 01/17/24 08:59 25 mg DAILY BALJEET Administration
--- NOTE | 2023-12-18 17:33 | Cardiology Progress Note ---
Date of Service December 18, 2023 Assessment & Plan (1) Atrial fibrillation with rapid ventricular response: Plan: Pt continues to have AF with moderate ventricular rates; she has failed rhythm management; she is on high doses of metoprolol and has gotten intermittent doses of digoxin as well. some of the higher ventricular rates could be driven from her underlying obesity and COVID with the acute CHF. would add digoxin 125mcg daily can give an IV dose now of 250mcg as well Continue eliquis (2) Acute on chronic heart failure with preserved ejection fraction: Plan: difficult to tell volume status given her body habitus continue current dose of IV lasix 40mg TID dialy weights I/Os daily BMPto monitor kidney and potassium levels (3) COVID-19: (4) Morbid obesity with BMI of 60.0-69.9, adult: (5) Gross hematuria: Plan Complex 63-year-old female admitted with acute COVID infection complicated with AF RVR and acute on chronic heart failure with preserved EF. I would start digoxin PO daily for trying to control the AF rates in addition to the high doses of toprol; ultimately we might need AVJ and pacemaker-but this is not going to be an ideal procedure for fear of her high risk of infection and she would be depend on the ppm-but this would be our last resort as an outpt. I would continue the current dose of IV lasix and potassium for now as well I discussed my recommendations and plan with the hospitalist on the phone today and she agreed with my recommendations Admission and Anticipated Discharge Date Admission Date: December 05, 2023 Subjective Pt seen earlier this afternoon at the bedside; was present at this time as well pt did have some lightheadedness and dizziness earlier today when getting up from bed to chair she feels she is still congested with fluid she does not feel any palpitations, chest pains Review of Systems Review of Systems: All systems reviewed & are unremarkable except as noted in HPI & below Physical Exam Physical Exam: aaox3, NAD, sitting up in chair NC/AT, EOMI Supple difficult to assess JVD irregular/irregular S1/S2, No murmur CTA b/l no w/r/r soft nt/nd + LE edema b/l +hernandez no focal deficits Results & Data Vital Signs (Past 12 Hours) Vital Signs Temp Pulse Pulse Resp BP Pulse Ox O2 Del Method 12/18/23 15:48 126 H 12/18/23 15:16 36.5 C 89 20 105/72 96 Room Air 12/18/23 12:31 Room Air 12/18/23 11:33 36.6 C 80 18 145/80 H 95 Room Air 12/18/23 08:03 36.4 C L 72 20 152/67 H 96 Room Air 12/18/23 08:00 93 H 12/18/23 08:00 Room Air Laboratory Results CBC 12/18/23 Range/Units 05:26 WBC 12.37 H (4.8-10.8) K/ul RBC 3.69 L (4.20-5.40) M/uL Hgb 10.2 L (12.0-16.0) g/dl Hct 31.8 L (37.0-47.0) % Plt Count 280 (130-400) K/uL Comprehensive Metabolic Panel 12/18/23 Range/Units 05:26 Sodium 134 L (136-145) mmol/L Potassium 3.9 (3.5-5.1) mmol/L Chloride 96 L (98-107) mmol/L Carbon Dioxide 30 (21-32) mmol/L BUN 47 H (6-23) mg/dl Creatinine 1.29 H (0.6-1.2) mg/dl Glucose 106 H (70-99(Fasting)) mg/dl Calcium 8.8 (8.6-10.3) mg/dl Intake and Output 12/18/23 12/18/23 12/18/23 06:59 14:59 22:59 Intake Total 50 / 50 Output Total 900 / 1250 801 / 801 Balance -900 / -1000 -751 / -751 Intake: IV 50 / 50 cefTRIAXone SODIUM 2,000 mg In 50 / 50 Dextrose 5 % Mini-B 50 ml @ 100 mls/hr IV Q24H [facility] Rx#: [id number] Output: Urine Amount (Catheter) 900 / 1250 800 / 800 External 800 / 800 Hernandez/Indwelling 900 / 1250 # Bowel Movements Other: Other Intake Source sips Weight 174.6 kg Weight Measurement Method Standing Scale Diagnostic Findings telemetry: AF 100s Medications Administered Current Inpatient Medications Acetaminophen (Acetaminophen 500 Mg Tab) 1,000 mg PO Q8H PRN PRN Reason: Pain or Fever Stop: 01/04/24 14:19 Last Admin: 12/18/23 16:20 Dose: 1,000 mg Apixaban (Apixaban 5 Mg Tablet) 5 mg PO BID BALJEET Stop: 01/04/24 20:59 Last Admin: 12/18/23 08:12 Dose: 5 mg Atorvastatin Calcium (Atorvastatin 40 Mg Tab) 40 mg PO DAILY BALJEET Stop: 01/05/24 08:59 Last Admin: 12/18/23 08:12 Dose: 40 mg Benzonatate (Benzonatate 100 Mg Capsule) 100 mg PO TID PRN PRN Reason: cough Stop: 01/04/24 14:19 Diclofenac Sodium (Diclofenac Sod 1% Gel 100 Gm Tube) 4 gm EXT Q6H PRN; Protocol PRN Reason: knee pain Stop: 01/04/24 14:19 Last Admin: 12/18/23 08:13 Dose: 4 gm Docusate Sodium (Docusate Sodium 100 Mg Cap) 100 mg PO BID BALJEET Stop: 01/10/24 20:59 Last Admin: 12/18/23 08:24 Dose: 100 mg Ergocalciferol (Ergocalciferol 50,000 Units 1250 Mcg Cap) 50,000 units PO We@0900 [facility]JE[facility] Stop: 01/07/24 08:59 Last Admin: 12/15/23 09:10 Dose: 50,000 units Furosemide (Furosemide 40 Mg/4 Ml Vial) 40 mg IV TID [facility]JE[facility] Stop: 01/16/24 13:59 Last Admin: 12/18/23 15:18 Dose: 40 mg Gabapentin (Gabapentin 300 Mg Cap) 300 mg PO HS [facility]JE[facility] Stop: 01/04/24 20:59 Last Admin: 12/17/23 20:57 Dose: 300 mg Guaifenesin (Guaifenesin 600 Mg Tabcr) 1,200 mg PO Q12 [facility]JE[facility] Stop: 01/04/24 20:59 Last Admin: 12/18/23 08:11 Dose: 1,200 mg Hydroxyzine HCl (Hydroxyzine Hcl 25 Mg Tab) 25 mg PO Q6H PRN PRN Reason: Anxiety/Insomnia Stop: 01/15/24 16:00 Last Admin: 12/17/23 09:17 Dose: 25 mg Ceftriaxone Sodium 2,000 mg/ (Dextrose) 50 mls @ 100 mls/hr IV Q24H BALJEET; Protocol Stop: 12/26/23 08:59 Last Infusion: 12/18/23 09:46 Dose: Infused Levothyroxine Sodium (Levothyroxine Sodium 100 Mcg Tablet) 100 mcg PO DAILYBB [facility] Stop: 01/05/24 06:29 Last Admin: 12/18/23 06:10 Dose: 100 mcg Lidocaine (Lidocaine 5% 1 Patch) 1 patch TD QAM [facility] Stop: 01/08/24 09:14 Last Admin: 12/18/23 08:13 Dose: 1 patch Magnesium Hydroxide (Magnesium Hydroxide Susp 30 Ml Udc) 30 ml PO Q6H PRN PRN Reason: Constipation Stop: 01/10/24 18:24 Metoprolol Succinate (Metoprolol Succ 50mg Ext Rel Tab) 100 mg PO BID [facility] Stop: 01/14/24 20:59 Last Admin: 12/18/23 08:12 Dose: 100 mg Miconazole Nitrate (Miconazole Nitrate Powder 85 Gm) 1 appln EXT BID [facility] Stop: 01/05/24 00:29 Last Admin: 12/18/23 08:14 Dose: 1 appln Miscellaneous (Remove Lidoderm Patch) 1 each N/A DAILY@2100 [facility] Stop: 01/08/24 20:59 Last Admin: 12/17/23 20:55 Dose: 1 each Oxycodone HCl (Oxycodone Hcl Ir 5 Mg Tab (Immediate Release)) 7.5 mg PO Q4H PRN PRN Reason: Moderate Pain (Scale 4, 5, 6) Stop: 12/23/23 11:58 Last Admin: 12/18/23 08:08 Dose: 7.5 mg Polyethylene Glycol (Polyethylene (Miralax) 17 Gm Pack) 17 gm PO DAILY PRN PRN Reason: Constipation Stop: 01/04/24 14:19 Last Admin: 12/16/23 08:58 Dose: 17 gm Potassium Chloride (Potassium Chloride Crtab 20 Meq Tabcr) 40 meq PO BID [facility] Stop: 01/16/24 20:59 Last Admin: 12/18/23 08:12 Dose: 40 meq Spironolactone (Spironolactone 25 Mg Tab) 25 mg PO DAILY [facility] Stop: 01/17/24 08:59 Last Admin: 12/18/23 08:12 Dose: 25 mg
[2023-12-18] MEDS: DIGOXIN 250 MCG in SYRINGE 9 ML IV ONE (18:14)
[2023-12-19 06:26] LABS: Hemoglobin 10.5 g/dl (12.0-16.0); Mean Corpuscular Hemoglobin 27.4 pg (25.0-34.0); Mean Corpuscular Hgb Conc 31.8 g/dL (32.0-36.0); Mean Corpuscular Volume 86.2 fL (80.0-100.0); Mean Platelet Volume 10.8 fL (9.4-12.4); Nucleated RBC # (auto) 0.02 K/uL (0.00-0.12); Nucleated RBC % (auto) 0.2 %; Platelet Count 281 K/uL (130-400); RDW Coefficient of Variation 16.4 % (11.5-14.5); RDW Standard Deviation 50.2 fL (36.4-46.3); Red Blood Count 3.83 M/uL (4.20-5.40); White Blood Count 11.42 K/ul (4.8-10.8)
[2023-12-19 06:41] LABS: BUN Creatinine Ratio 35.2 (10-20); Calcium 9.4 mg/dl (8.6-10.3); Creatinine Clr Calc Pharmacy 76.4 ml/min; Est GFR (Non-African American) 47.4 ml/min; Magnesium 2.3 mg/dl (1.7-2.4); Phosphorus 3.7 mg/dl (2.5-4.9); Potassium 4.1 mmol/L (3.5-5.1)
[2023-12-19] MEDS: DIGOXIN 0.125 MG TAB PO SCH (14:49)
[2023-12-19] MEDS ORDERED: DIGOXIN 0.125 MG TAB PO SCH (16:00)
--- NOTE | 2023-12-19 16:00 | Hospitalist Progress Note ---
Date of Service December 19, 2023 Assessment & Plan (1) Atrial fibrillation with rapid ventricular response: (2) Elevated troponin: (3) COVID-19: (4) Hypoxia: (5) Abdominal pain: (6) Urolithiasis: (7) Generalized weakness: (8) Tachycardia-bradycardia syndrome: (9) Hypertension: (10) HLD (hyperlipidemia): (11) Hypothyroidism: (12) Morbid obesity with BMI of 60.0-69.9, adult: Plan Ms. Cox is a 63 year old woman with PMHx significant for paroxysmal atrial fibrillation anticoagulated on Eliquis, tachybradycardia syndrome refusing pacemaker, HTN, HLD, hypothyroidism, obesity, obstructive uropathy s/p L uretal stent placement on 11/08 admitted with R sided abdominal pain, FLETCHER and atrial fibrillation with RVR in the setting of a COVID infection and UTI. Patient's course complicated by ongoing atrial fibrillation. Patient is now on oral digoxin and still diuresing, though minimally net negative; however, renal function continues to downtrend at this point. #Atrial fibrillation with rapid ventricular response Presented with R abd pain, found to be in a fib with RVR Home: sotalol 40mg BID with Eliquis for anticoagulation for PAF. Had not taken her AM dose of sotalol. On admission, P: 147, RR: 19, BP 111/71. K 3.8, Magnesium: 2.0, TSH: 5.9 T4 0.98 EKG on admission: A-fib RVR, rate 143 In ER received a total of 15mg of IV Lopressor. Heart rate improved from 140s down to 120s. Patient given her morning dose of sotalol in the ER. Dilt drip started to no avail. Cardiology was then consulted- appreciate recs. Recommended: -holding home sotalol in setting of FLETCHER, transitioned at first to PO metoprolol tartrate 25mg QID with diltiazem drip. Continued Eliquis 5mg BID for anticoagulation -deferring repeat echo Cardiology recommendations on going, -Transitioned to amiodarone drip from 12/09-12/12; discontinued PO amiodaron e; rates remained elevated, loaded with digoxin 12/16. -Continue IV lasix 100mg TID, spironolactone 25mg metoprolol 100mg XL BID -Started on PO digoxin 125mcg daily #Acute on chronic heart failure with preserved ejection fraction Echo 2021- EF 65-70% Aggressive ongoing diuersis with lasix 100mg TID Potassium supplementation Continue spironolactone 25mg daily and metoprolol 100mg XL BID Diuresis via IV until renal function uptrends #Elevated troponin *resolved Initial troponin 54. Downtrended to 41.3 EKG with noted atrial fibrillation with RVR Likely elevated secondary to demand ischemia from rapid A-fib, doubt ACS #Tachycardia-bradycardia syndrome History of tachybrady syndrome. Follows with cardiology and EP. In past has refused pacemaker Monitor on telemetry #Hypertension Hold home losartan and HCTZ with current FLETCHER Monitor BPs Currently on metoprolol 100mg BID, lasix IV TID, spironolactone 25mg daily #Acute complicated UTI 2/2 e coli WBC elevated UA repeated and now with nitrites Continue Rocephin on 12/15, EOT tentatively 12/29 for 14 day regimen iso stents Urine Cx growing E coli- follow Cx to narrow abx -Continue IV abx until discussion with Urology regarding stents, urine muddy brown but improving -Holding on conversation as current cardiac status makes patient a tenuous candidate for sedation/removal, will reach out when heart status more stable #Gross Hematuria #Acute on Chronic microcytic anemia *stable Pt with gross blood in urinary canister near bed previously Hgb in 9-10 range currently, was 11.4 on 11/08, appears her baseline is ~11 Iron level 44, ferritin 313 Urology consult- appreciate recs -per cardiology and urology, continue with anticoagulation at this time - 12/08- hernandez in, hand irrigate for clots retention, suprapubic pain Plan to discuss with urology next steps given UTI and stents upon better control of cardiac status Urine appears still muddy brown, but likely 2/2 resolving infection #COVID-19 *resoled #Acute hypoxic respiratory failure, resolved Pt with sore throat, cough, congestion that started 3-4 days prior to arrival In ER 89% on room air up to 95% on 3L nasal cannula COVID-19 positive on 12/04/22, enhanced precautions completed, completed dex course Chest xray with no acute changes Supplemental oxygen as needed, wean as tolerated Incentive spirometry, flutter valve Further supportive treatment as needed Stable, currently on RA #FLETCHER (acute kidney injury) *improving Likely 2/2 a fib RVR and infection Cr: 1.6 on admission, was 0.94 the day before Received gentle diuresis with NSS @70 for 2 bags. Nephrology consult placed on 12/07 -continue to trend, no further IVF required Monitor fluid balance Avoid contrast/nephrotoxic meds Monitor renal function, continue to trend--1.22 this am continue aggressive diuresis until renal function unable to tolerate #obstructive uropathy s/p stent placement 10/2023 Patient with reported right-sided abdominal pain that started morning of admission. 12/04/2023 (day before admission), CT abdomen pelvis noted LEFT-sided ureteral stent in place, bilateral intrarenal stones, proximal left ureteral stone, diverticulosis with no signs of diverticulitis. No acute appendicitis or bowel obstruction. No evidence of visceral or intra-abdominal injury. No acute fracture. Pain control Urology consult placed for hematuria (see above) but appreciate recs for this as well -pt now requesting to have stents removed but needs HR under control -Plan to discuss with urology once A Fib is controlled. #Generalized weakness Ambulates with cane at baseline. Increased generalized weakness over the past several days. Likely secondary to underlying infection with COVID-19 12/04/2023: CT head: No acute intracranial abnormality Fall precautions PT/OT eval-recommending home with s/o support and HH services -Patient willing to consider HH services or rehab if covered, will discuss with CM #HLD (hyperlipidemia) Continue atorvastatin #Hypothyroidism Continue levothyroxine #Morbid obesity with BMI of 60.0-69.9, adult BMI: 68.3 Encourage weight loss Pt ordered bariatric bed for better comfort Constipation Docusate sodium 100mg BID PRN Miralax ordered PRN milk of magnesia Diet: HH DVT Prophylaxis: On Eliquis CODE STATUS: Full code Dispo: PT/OT recommending home with s/o support and HH services Admission and Anticipated Discharge Date Admission Date: December 05, 2023 Subjective NAEO Denies any chest pain or acute concerns Reports she is anxious to get home because of finances; after long discussion with partner and patient She notes that her toes are notably less edematous today--stating she can wiggle them and couldnt before Physical Exam Constitutional: WD/WN, vitals as above Respiratory: diminished, difficult to appreciate 2/2 habitus Cardiovascular: diminished, difficult to appreciate 2/2 habitus Musculoskeletal: diffuse lymphedema, however, toes are notably less edematous today, Results & Data Results & Data Vital Signs (Past 12 Hours) Vital Signs Temp Pulse Pulse Resp BP BP Pulse Ox 12/19/23 14:59 128 H 12/19/23 14:49 90 12/19/23 14:02 36.8 C 90 20 115/69 97 12/19/23 11:28 36.5 C 98 H 18 149/85 H 92 12/19/23 10:26 12/19/23 07:37 88 12/19/23 07:28 36.5 C 71 18 132/71 95 O2 Del Method 12/19/23 14:59 12/19/23 14:49 12/19/23 14:02 Room Air 12/19/23 11:28 Room Air 12/19/23 10:26 Room Air 12/19/23 07:37 12/19/23 07:28 Room Air Laboratory Results Short CBC 12/19/23 Range/Units 05:13 WBC 11.42 H (4.8-10.8) K/ul Hgb 10.5 L (12.0-16.0) g/dl Hct 33.0 L (37.0-47.0) % Plt Count 281 (130-400) K/uL BMP 12/19/23 05:13 Sodium 134 L Potassium 4.1 Chloride 96 L Carbon Dioxide 29 BUN 43 H Creatinine 1.22 H Glucose 99 Calcium 9.4 Medications Administered Acetaminophen (Acetaminophen 500 Mg Tab) 1,000 mg PO Q8H PRN PRN Reason: Pain or Fever Stop: 01/04/24 14:19 Last Admin: 12/18/23 16:20 Dose: 1,000 mg Documented By: Admin: 12/17/23 00:32 Dose: 1,000 mg Documented By: Admin: 12/16/23 12:40 Dose: 1,000 mg Documented By: Admin: 12/15/23 14:35 Dose: 1,000 mg Documented By: Admin: 12/12/23 04:09 Dose: 1,000 mg Documented By: Admin: 12/11/23 16:22 Dose: 1,000 mg Documented By: PAPA Apixaban (Apixaban 5 Mg Tablet) 5 mg PO BID [facility] Stop: 01/04/24 20:59 Last Admin: 12/19/23 08:51 Dose: 5 mg Documented By: Admin: 12/18/23 19:43 Dose: 5 mg Documented By: Admin: 12/18/23 08:12 Dose: 5 mg Documented By: Admin: 12/17/23 20:58 Dose: 5 mg Documented By: Admin: 12/17/23 09:17 Dose: 5 mg Documented By: Admin: 12/16/23 22:14 Dose: 5 mg Documented By: Admin: 12/16/23 09:00 Dose: 5 mg Documented By: Admin: 12/15/23 22:24 Dose: 5 mg Documented By: Admin: 12/15/23 09:12 Dose: 5 mg Documented By: Admin: 12/14/23 22:02 Dose: 5 mg Documented By: Admin: 12/14/23 08:06 Dose: 5 mg Documented By: MTTorie Admin: 12/13/23 21:13 Dose: 5 mg Documented By: Admin: 12/13/23 08:00 Dose: 5 mg Documented By: Admin: 12/12/23 21:03 Dose: 5 mg Documented By: Admin: 12/12/23 08:04 Dose: 5 mg Documented By: MTTorie Admin: 12/11/23 20:42 Dose: 5 mg Documented By: Admin: 12/11/23 08:40 Dose: 5 mg Documented By: Admin: 12/10/23 21:29 Dose: 5 mg Documented By: Admin: 12/10/23 08:08 Dose: 5 mg Documented By: Admin: 12/09/23 21:03 Dose: 5 mg Documented By: MNMitch Admin: 12/09/23 08:18 Dose: 5 mg Documented By: DLYeimi Admin: 12/08/23 20:24 Dose: 5 mg Documented By: Admin: 12/08/23 08:01 Dose: 5 mg Documented By: Admin: 12/07/23 20:40 Dose: 5 mg Documented By: Admin: 12/07/23 07:59 Dose: 5 mg Documented By: Admin: 12/06/23 22:46 Dose: 5 mg Documented By: Admin: 12/06/23 08:11 Dose: 5 mg Documented By: Admin: 12/05/23 20:40 Dose: 5 mg Documented By: KIRSTIE Atorvastatin Calcium (Atorvastatin 40 Mg Tab) 40 mg PO DAILY [facility] Stop: 01/05/24 08:59 Last Admin: 12/19/23 08:53 Dose: 40 mg Documented By: Admin: 12/18/23 08:12 Dose: 40 mg Documented By: Admin: 12/17/23 09:18 Dose: 40 mg Documented By: Admin: 12/16/23 09:00 Dose: 40 mg Documented By: Admin: 12/15/23 09:12 Dose: 40 mg Documented By: Admin: 12/14/23 08:06 Dose: 40 mg Documented By: Admin: 12/13/23 08:00 Dose: 40 mg Documented By: Admin: 12/12/23 08:04 Dose: 40 mg Documented By: Admin: 12/11/23 08:40 Dose: 40 mg Documented By: Admin: 12/10/23 08:08 Dose: 40 mg Documented By: Admin: 12/09/23 08:18 Dose: 40 mg Documented By: Admin: 12/08/23 08:01 Dose: 40 mg Documented By: Admin: 12/07/23 07:59 Dose: 40 mg Documented By: Admin: 12/06/23 08:10 Dose: 40 mg Documented By: FATMATA Diclofenac Sodium (Diclofenac Sod 1% Gel 100 Gm Tube) 4 gm EXT Q6H PRN; Protocol PRN Reason: knee pain Stop: 01/04/24 14:19 Last Admin: 12/18/23 08:13 Dose: 4 gm Documented By: Admin: 12/16/23 16:43 Dose: 4 gm Documented By: Admin: 12/12/23 06:27 Dose: 4 gm Documented By: KIRSTIE Digoxin (Digoxin 0.125 Mg Tab) 0.125 mg PO DAILY@1600 [facility] Stop: 01/18/24 15:59 Last Admin: 12/19/23 14:49 Dose: 0.125 mg Documented By: FRANSISCO Docusate Sodium (Docusate Sodium 100 Mg Cap) 100 mg PO BID [facility] Stop: 01/10/24 20:59 Last Admin: 12/19/23 08:53 Dose: 100 mg Documented By: Admin: 12/18/23 19:39 Dose: 100 mg Documented By: Admin: 12/18/23 08:24 Dose: 100 mg Documented By: Admin: 12/17/23 20:59 Dose: 100 mg Documented By: Admin: 12/17/23 09:17 Dose: 100 mg Documented By: Admin: 12/16/23 22:13 Dose: 100 mg Documented By: Admin: 12/16/23 08:59 Dose: 100 mg Documented By: Admin: 12/15/23 22:24 Dose: 100 mg Documented By: Admin: 12/15/23 09:10 Dose: 100 mg Documented By: Admin: 12/14/23 22:03 Dose: 100 mg Documented By: Admin: 12/14/23 08:06 Dose: 100 mg Documented By: Admin: 12/13/23 21:13 Dose: 100 mg Documented By: Admin: 12/13/23 08:00 Dose: 100 mg Documented By: Admin: 12/12/23 21:04 Dose: 100 mg Documented By: Admin: 12/12/23 08:05 Dose: 100 mg Documented By: Admin: 12/11/23 20:37 Dose: 100 mg Documented By: KRT Ergocalciferol (Ergocalciferol 50,000 Units 1250 Mcg Cap) 50,000 units PO We@0900 [facility] Stop: 01/07/24 08:59 Last Admin: 12/15/23 09:10 Dose: 50,000 units Documented By: Admin: 12/08/23 08:02 Dose: 50,000 units Documented By: GLORIA Furosemide (Furosemide 40 Mg/4 Ml Vial) 40 mg IV TID [facility] Stop: 01/16/24 13:59 Last Admin: 12/19/23 14:03 Dose: 40 mg Documented By: Admin: 12/19/23 08:52 Dose: 40 mg Documented By: Admin: 12/18/23 19:39 Dose: 40 mg Documented By: Admin: 12/18/23 15:18 Dose: 40 mg Documented By: Admin: 12/18/23 08:12 Dose: 40 mg Documented By: Admin: 12/17/23 20:56 Dose: 40 mg Documented By: Admin: 12/17/23 12:30 Dose: 40 mg Documented By: EDMUNDO Gabapentin (Gabapentin 300 Mg Cap) 300 mg PO HS [facility] Stop: 01/04/24 20:59 Last Admin: 12/18/23 19:40 Dose: 300 mg Documented By: Admin: 12/17/23 20:57 Dose: 300 mg Documented By: Admin: 12/16/23 22:16 Dose: 300 mg Documented By: Admin: 12/15/23 22:24 Dose: 300 mg Documented By: Admin: 12/14/23 20:26 Dose: 300 mg Documented By: Admin: 12/13/23 21:13 Dose: 300 mg Documented By: Admin: 12/12/23 21:04 Dose: 300 mg Documented By: Admin: 12/11/23 20:39 Dose: 300 mg Documented By: Admin: 12/10/23 22:12 Dose: 300 mg Documented By: Admin: 12/09/23 21:02 Dose: 300 mg Documented By: Admin: 12/08/23 20:25 Dose: 300 mg Documented By: Admin: 12/07/23 20:40 Dose: 300 mg Documented By: Admin: 12/06/23 22:45 Dose: 300 mg Documented By: Admin: 12/05/23 20:40 Dose: 300 mg Documented By: KRT Guaifenesin (Guaifenesin 600 Mg Tabcr) 1,200 mg PO Q12 [facility] Stop: 01/04/24 20:59 Last Admin: 12/19/23 08:53 Dose: 1,200 mg Documented By: Admin: 12/18/23 19:44 Dose: 1,200 mg Documented By: Admin: 12/18/23 08:11 Dose: 1,200 mg Documented By: Admin: 12/17/23 20:58 Dose: 1,200 mg Documented By: Admin: 12/17/23 09:17 Dose: 1,200 mg Documented By: Admin: 12/16/23 22:15 Dose: 1,200 mg Documented By: Admin: 12/16/23 08:59 Dose: 1,200 mg Documented By: Admin: 12/15/23 22:25 Dose: 1,200 mg Documented By: Admin: 12/15/23 09:11 Dose: 1,200 mg Documented By: Admin: 12/14/23 22:03 Dose: 1,200 mg Documented By: Admin: 12/14/23 08:06 Dose: 1,200 mg Documented By: Admin: 12/13/23 21:13 Dose: 1,200 mg Documented By: Admin: 12/13/23 08:00 Dose: 1,200 mg Documented By: Admin: 12/12/23 21:05 Dose: 1,200 mg Documented By: Admin: 12/12/23 08:05 Dose: 1,200 mg Documented By: Admin: 12/11/23 20:38 Dose: 1,200 mg Documented By: Admin: 12/11/23 08:41 Dose: 1,200 mg Documented By: Admin: 12/10/23 21:32 Dose: 1,200 mg Documented By: Admin: 12/10/23 08:08 Dose: 1,200 mg Documented By: Admin: 12/09/23 21:01 Dose: 1,200 mg Documented By: Admin: 12/09/23 08:18 Dose: 1,200 mg Documented By: Admin: 12/08/23 20:24 Dose: 1,200 mg Documented By: Admin: 12/08/23 08:02 Dose: 1,200 mg Documented By: Admin: 12/07/23 20:41 Dose: 1,200 mg Documented By: MLYeimi Admin: 12/07/23 07:59 Dose: 1,200 mg Documented By: Admin: 12/06/23 22:46 Dose: 1,200 mg Documented By: Admin: 12/06/23 08:10 Dose: 1,200 mg Documented By: Admin: 12/05/23 20:40 Dose: 1,200 mg Documented By: KRT Hydroxyzine HCl (Hydroxyzine Hcl 25 Mg Tab) 25 mg PO Q6H PRN PRN Reason: Anxiety/Insomnia Stop: 01/15/24 16:00 Last Admin: 12/18/23 19:44 Dose: 25 mg Documented By: Admin: 12/17/23 09:17 Dose: 25 mg Documented By: Admin: 12/16/23 22:20 Dose: 25 mg Documented By: KIRSTIE Ceftriaxone Sodium 2,000 mg/ (Dextrose) 50 mls @ 100 mls/hr IV Q24H [facility]; Protocol Stop: 12/26/23 08:59 Last Infusion: 12/19/23 10:03 Dose: Infused Documented By: Admin: 12/19/23 08:52 Dose: 100 mls/hr Documented By: Infusion: 12/18/23 09:46 Dose: Infused Documented By: Admin: 12/18/23 08:25 Dose: 100 mls/hr Documented By: Infusion: 12/17/23 10:03 Dose: Infused Documented By: Admin: 12/17/23 09:22 Dose: 100 mls/hr Documented By: Infusion: 12/16/23 10:33 Dose: Infused Documented By: Admin: 12/16/23 09:00 Dose: 100 mls/hr Documented By: MOSES Levothyroxine Sodium (Levothyroxine Sodium 100 Mcg Tablet) 100 mcg PO DAILYBB [facility] Stop: 01/05/24 06:29 Last Admin: 12/19/23 05:42 Dose: 100 mcg Documented By: TMYeimi Admin: 12/18/23 06:10 Dose: 100 mcg Documented By: TMYeimi Admin: 12/17/23 09:19 Dose: 100 mcg Documented By: Admin: 12/16/23 05:53 Dose: 100 mcg Documented By: Admin: 12/15/23 06:08 Dose: 100 mcg Documented By: Admin: 12/14/23 05:27 Dose: 100 mcg Documented By: Admin: 12/13/23 04:09 Dose: 100 mcg Documented By: Admin: 12/12/23 06:26 Dose: 100 mcg Documented By: Admin: 12/11/23 05:56 Dose: 100 mcg Documented By: Admin: 12/10/23 06:13 Dose: 100 mcg Documented By: Admin: 12/09/23 06:08 Dose: 100 mcg Documented By: Admin: 12/08/23 05:29 Dose: 100 mcg Documented By: MLYeimi Admin: 12/07/23 06:09 Dose: 100 mcg Documented By: Admin: 12/06/23 06:18 Dose: 100 mcg Documented By: KIRSTIE Lidocaine (Lidocaine 5% 1 Patch) 1 patch TD QAM [facility] Stop: 01/08/24 09:14 Last Admin: 12/19/23 08:53 Dose: 1 patch Documented By: Admin: 12/18/23 08:13 Dose: 1 patch Documented By: Admin: 12/17/23 09:18 Dose: 1 patch Documented By: Admin: 12/16/23 08:59 Dose: 1 patch Documented By: Admin: 12/15/23 09:11 Dose: 1 patch Documented By: Admin: 12/14/23 08:06 Dose: 1 patch Documented By: Admin: 12/13/23 08:00 Dose: 1 patch Documented By: Admin: 12/12/23 08:05 Dose: 1 patch Documented By: Admin: 12/11/23 08:41 Dose: 1 patch Documented By: Admin: 12/10/23 08:08 Dose: 1 patch Documented By: Admin: 12/09/23 09:49 Dose: 1 patch Documented By: FATMATA Metoprolol Succinate (Metoprolol Succ 50mg Ext Rel Tab) 100 mg PO BID [facility] Stop: 01/14/24 20:59 Last Admin: 12/19/23 08:52 Dose: 100 mg Documented By: Admin: 12/18/23 20:21 Dose: 100 mg Documented By: Admin: 12/18/23 08:12 Dose: 100 mg Documented By: Admin: 12/17/23 20:58 Dose: 100 mg Documented By: Admin: 12/17/23 09:18 Dose: 100 mg Documented By: Admin: 12/16/23 22:13 Dose: 100 mg Documented By: Admin: 12/16/23 09:00 Dose: 100 mg Documented By: Admin: 12/15/23 22:25 Dose: 100 mg Documented By: KIRSTIE Miconazole Nitrate (Miconazole Nitrate Powder 85 Gm) 1 appln EXT BID [facility] Stop: 01/05/24 00:29 Last Admin: 12/19/23 08:55 Dose: 1 appln Documented By: Admin: 12/18/23 19:39 Dose: 1 appln Documented By: Admin: 12/18/23 08:14 Dose: 1 appln Documented By: Admin: 12/17/23 20:55 Dose: 1 appln Documented By: Admin: 12/17/23 09:20 Dose: 1 appln Documented By: Admin: 12/16/23 22:16 Dose: 1 appln Documented By: Admin: 12/16/23 09:01 Dose: 1 appln Documented By: Admin: 12/15/23 22:26 Dose: 1 appln Documented By: Admin: 12/15/23 09:11 Dose: 1 appln Documented By: Admin: 12/14/23 20:25 Dose: 1 appln Documented By: Admin: 12/14/23 08:07 Dose: 1 appln Documented By: Admin: 12/13/23 21:16 Dose: 1 appln Documented By: Admin: 12/13/23 08:01 Dose: 1 appln Documented By: Admin: 12/12/23 21:06 Dose: 1 appln Documented By: Admin: 12/12/23 08:07 Dose: 1 appln Documented By: Admin: 12/11/23 20:41 Dose: 1 appln Documented By: Admin: 12/11/23 08:41 Dose: Not Given Documented By: Admin: 12/10/23 21:33 Dose: 1 appln Documented By: Admin: 12/10/23 08:09 Dose: 1 appln Documented By: Admin: 12/09/23 21:04 Dose: 1 appln Documented By: Admin: 12/09/23 08:18 Dose: 1 appln Documented By: Admin: 12/08/23 20:25 Dose: 1 appln Documented By: Admin: 12/08/23 08:03 Dose: 1 appln Documented By: Admin: 12/07/23 20:42 Dose: 1 appln Documented By: Admin: 12/07/23 08:00 Dose: 1 appln Documented By: Admin: 12/06/23 22:46 Dose: 1 appln Documented By: Admin: 12/06/23 08:32 Dose: 1 appln Documented By: Admin: 12/06/23 03:09 Dose: Not Given Documented By: KRISTIE Miscellaneous (Remove Lidoderm Patch) 1 each N/A DAILY@2100 [facility] Stop: 01/08/24 20:59 Last Admin: 12/18/23 19:39 Dose: 1 each Documented By: [facility] Admin: 12/17/23 20:55 Dose: 1 each Documented By: [facility] Admin: 12/16/23 22:17 Dose: 1 each Documented By: Admin: 12/15/23 22:26 Dose: 1 each Documented By: Admin: 12/14/23 22:03 Dose: 1 each Documented By: Admin: 12/13/23 21:16 Dose: 1 each Documented By: Admin: 12/12/23 21:06 Dose: Not Given Documented By: Admin: 12/11/23 20:42 Dose: Not Given Documented By: Admin: 12/10/23 21:35 Dose: 1 each Documented By: Admin: 12/09/23 21:04 Dose: 1 each Documented By: MNM Oxycodone HCl (Oxycodone Hcl Ir 5 Mg Tab (Immediate Release)) 7.5 mg PO Q4H PRN PRN Reason: Moderate Pain (Scale 4, 5, 6) Stop: 12/23/23 11:58 Last Admin: 12/19/23 08:58 Dose: 7.5 mg Documented By: Admin: 12/18/23 19:38 Dose: 7.5 mg Documented By: Admin: 12/18/23 08:08 Dose: 7.5 mg Documented By: Admin: 12/17/23 20:54 Dose: 7.5 mg Documented By: Admin: 12/17/23 15:43 Dose: 7.5 mg Documented By: Admin: 12/16/23 22:17 Dose: 7.5 mg Documented By: Admin: 12/15/23 22:28 Dose: 7.5 mg Documented By: Admin: 12/15/23 09:08 Dose: 7.5 mg Documented By: Admin: 12/14/23 13:30 Dose: 7.5 mg Documented By: Admin: 12/14/23 05:36 Dose: 7.5 mg Documented By: Admin: 12/13/23 21:23 Dose: 7.5 mg Documented By: Admin: 12/13/23 15:24 Dose: 7.5 mg Documented By: Admin: 12/13/23 07:57 Dose: 7.5 mg Documented By: Admin: 12/12/23 22:56 Dose: 7.5 mg Documented By: Admin: 12/12/23 16:50 Dose: 7.5 mg Documented By: Admin: 12/12/23 11:52 Dose: 7.5 mg Documented By: Admin: 12/12/23 06:24 Dose: 7.5 mg Documented By: Admin: 12/12/23 00:59 Dose: 7.5 mg Documented By: Admin: 12/11/23 20:46 Dose: 7.5 mg Documented By: Admin: 12/11/23 16:22 Dose: 7.5 mg Documented By: Admin: 12/11/23 11:16 Dose: 7.5 mg Documented By: Admin: 12/10/23 21:25 Dose: 7.5 mg Documented By: Admin: 12/10/23 08:07 Dose: 7.5 mg Documented By: Admin: 12/09/23 21:32 Dose: 7.5 mg Documented By: Admin: 12/09/23 13:04 Dose: 7.5 mg Documented By: FATMATA Polyethylene Glycol (Polyethylene (Miralax) 17 Gm Pack) 17 gm PO DAILY PRN PRN Reason: Constipation Stop: 01/04/24 14:19 Last Admin: 12/16/23 08:58 Dose: 17 gm Documented By: Admin: 12/15/23 17:09 Dose: 17 gm Documented By: Admin: 12/10/23 11:48 Dose: 17 gm Documented By: Admin: 12/09/23 11:46 Dose: 17 gm Documented By: Admin: 12/08/23 08:12 Dose: 17 gm Documented By: GLORIA Potassium Chloride (Potassium Chloride Crtab 20 Meq Tabcr) 40 meq PO BID [facility] Stop: 01/16/24 20:59 Last Admin: 12/19/23 08:52 Dose: 40 meq Documented By: Admin: 12/18/23 19:40 Dose: 40 meq Documented By: Admin: 12/18/23 08:12 Dose: 40 meq Documented By: Admin: 12/17/23 20:56 Dose: 40 meq Documented By: NEAL Spironolactone (Spironolactone 25 Mg Tab) 25 mg PO DAILY [facility] Stop: 01/17/24 08:59 Last Admin: 12/19/23 08:53 Dose: 25 mg Documented By: Admin: 12/18/23 08:12 Dose: 25 mg Documented By: ROCCO
--- NOTE | 2023-12-19 18:04 | Cardiology Progress Note ---
Date of Service December 19, 2023 Assessment & Plan (1) Atrial fibrillation with rapid ventricular response: Plan: Pt continues to have AF with moderate ventricular rates; she has failed rhythm management; she is on high doses of metoprolol and has gotten intermittent doses of digoxin as well. some of the higher ventricular rates could be driven from her underlying obesity and COVID with the acute CHF. we can accept higher heart rates especially when she is ambulating around continue digoxin 125mcg daily continue toprol 100gm BID Continue eliquis (2) Acute on chronic heart failure with preserved ejection fraction: Plan: difficult to tell volume status given her body habitus continue current dose of IV lasix 40mg TID-evenutally would switch to torsemide 60mg daily daily weights I/Os daily BMPto monitor kidney and potassium levels (3) COVID-19: (4) Morbid obesity with BMI of 60.0-69.9, adult: (5) Gross hematuria: Plan Complex 63-year-old female admitted with acute COVID infection complicated with AF RVR and acute on chronic heart failure with preserved EF. I would start digoxin PO daily for trying to control the AF rates in addition to the high doses of toprol and digoxin; ultimately we might need AVJ and pacemaker-but this is not going to be an ideal procedure for fear of her high risk of infection and she would be depend on the ppm-but this would be our last resort as an outpt. I would continue the current dose of IV lasix and potassium for now as well with plans to switch to torsemide 60mg daily I discussed my recommendations and plan with the hospitalist on the phone today and she agreed with my recommendations Admission and Anticipated Discharge Date Admission Date: December 05, 2023 Subjective pt seen earlier this afternoon she was sitting up in the chair with at the side she did not have any dizziness or lightheadedness today did get a little winded moving around the room today and her HR did go up at this time Review of Systems Review of Systems: All systems reviewed & are unremarkable except as noted in HPI & below Physical Exam 2 Physical Exam: aaox3, NAD, sitting up in chair NC/AT, EOMI Supple difficult to assess JVD irregular/irregular S1/S2, No murmur CTA b/l no w/r/r soft nt/nd + LE edema b/l +hernandez no focal deficits Results & Data Vital Signs (Past 12 Hours) Vital Signs Temp Pulse Pulse Resp BP BP Pulse Ox 12/19/23 14:59 128 H 12/19/23 14:49 90 12/19/23 14:02 36.8 C 90 20 115/69 97 12/19/23 11:28 36.5 C 98 H 18 149/85 H 92 12/19/23 10:26 12/19/23 07:37 88 12/19/23 07:28 36.5 C 71 18 132/71 95 O2 Del Method 12/19/23 14:59 12/19/23 14:49 12/19/23 14:02 Room Air 12/19/23 11:28 Room Air 12/19/23 10:26 Room Air 12/19/23 07:37 12/19/23 07:28 Room Air Laboratory Results CBC 12/19/23 Range/Units 05:13 WBC 11.42 H (4.8-10.8) K/ul RBC 3.83 L (4.20-5.40) M/uL Hgb 10.5 L (12.0-16.0) g/dl Hct 33.0 L (37.0-47.0) % Plt Count 281 (130-400) K/uL Comprehensive Metabolic Panel 12/19/23 Range/Units 05:13 Sodium 134 L (136-145) mmol/L Potassium 4.1 (3.5-5.1) mmol/L Chloride 96 L (98-107) mmol/L Carbon Dioxide 29 (21-32) mmol/L BUN 43 H (6-23) mg/dl Creatinine 1.22 H (0.6-1.2) mg/dl Glucose 99 (70-99(Fasting)) mg/dl Calcium 9.4 (8.6-10.3) mg/dl Intake and Output 12/19/23 12/19/23 12/19/23 06:59 14:59 22:59 Intake Total 550 / 600 170 / 170 Output Total 500 / 1801 352 / 352 Balance 50 / -1201 -182 / -182 Intake: IV 50 / 50 cefTRIAXone SODIUM 2,000 mg In 50 / 50 Dextrose 5 % Mini-B 50 ml @ 100 mls/hr IV Q24H [facility] Rx#: [id number] Oral 550 / 550 120 / 120 Output: Urine Amount (Catheter) 500 / 1800 350 / 350 Hernandez/Indwelling 500 / 1000 350 / 350 # Bowel Movements 2 / 2 Other: Weight 174.5 kg Weight Measurement Method Standing Scale Medications Administered Current Inpatient Medications Acetaminophen (Acetaminophen 500 Mg Tab) 1,000 mg PO Q8H PRN PRN Reason: Pain or Fever Stop: 01/04/24 14:19 Last Admin: 12/18/23 16:20 Dose: 1,000 mg Apixaban (Apixaban 5 Mg Tablet) 5 mg PO BID [facility] Stop: 01/04/24 20:59 Last Admin: 12/19/23 08:51 Dose: 5 mg Atorvastatin Calcium (Atorvastatin 40 Mg Tab) 40 mg PO DAILY [facility] Stop: 01/05/24 08:59 Last Admin: 12/19/23 08:53 Dose: 40 mg Benzonatate (Benzonatate 100 Mg Capsule) 100 mg PO TID PRN PRN Reason: cough Stop: 01/04/24 14:19 Diclofenac Sodium (Diclofenac Sod 1% Gel 100 Gm Tube) 4 gm EXT Q6H PRN; Protocol PRN Reason: knee pain Stop: 01/04/24 14:19 Last Admin: 12/18/23 08:13 Dose: 4 gm Digoxin (Digoxin 0.125 Mg Tab) 0.125 mg PO DAILY@1600 [facility] Stop: 01/18/24 15:59 Last Admin: 12/19/23 14:49 Dose: 0.125 mg Docusate Sodium (Docusate Sodium 100 Mg Cap) 100 mg PO BID [facility]JE[facility] Stop: 01/10/24 20:59 Last Admin: 12/19/23 08:53 Dose: 100 mg Ergocalciferol (Ergocalciferol 50,000 Units 1250 Mcg Cap) 50,000 units PO We@0900 [facility] Stop: 01/07/24 08:59 Last Admin: 12/15/23 09:10 Dose: 50,000 units Furosemide (Furosemide 40 Mg/4 Ml Vial) 40 mg IV TID [facility]JEET Stop: 01/16/24 13:59 Last Admin: 12/19/23 14:03 Dose: 40 mg Gabapentin (Gabapentin 300 Mg Cap) 300 mg PO HS [facility]JE[facility] Stop: 01/04/24 20:59 Last Admin: 12/18/23 19:40 Dose: 300 mg Guaifenesin (Guaifenesin 600 Mg Tabcr) 1,200 mg PO Q12 [facility] Stop: 01/04/24 20:59 Last Admin: 12/19/23 08:53 Dose: 1,200 mg Hydroxyzine HCl (Hydroxyzine Hcl 25 Mg Tab) 25 mg PO Q6H PRN PRN Reason: Anxiety/Insomnia Stop: 01/15/24 16:00 Last Admin: 12/18/23 19:44 Dose: 25 mg Ceftriaxone Sodium 2,000 mg/ (Dextrose) 50 mls @ 100 mls/hr IV Q24H [facility]; Protocol Stop: 12/26/23 08:59 Last Infusion: 12/19/23 10:03 Dose: Infused Levothyroxine Sodium (Levothyroxine Sodium 100 Mcg Tablet) 100 mcg PO DAILYBB [facility] Stop: 01/05/24 06:29 Last Admin: 12/19/23 05:42 Dose: 100 mcg Lidocaine (Lidocaine 5% 1 Patch) 1 patch TD QAM [facility] Stop: 01/08/24 09:14 Last Admin: 12/19/23 08:53 Dose: 1 patch Magnesium Hydroxide (Magnesium Hydroxide Susp 30 Ml Udc) 30 ml PO Q6H PRN PRN Reason: Constipation Stop: 01/10/24 18:24 Metoprolol Succinate (Metoprolol Succ 50mg Ext Rel Tab) 100 mg PO BID [facility] Stop: 01/14/24 20:59 Last Admin: 12/19/23 08:52 Dose: 100 mg Miconazole Nitrate (Miconazole Nitrate Powder 85 Gm) 1 appln EXT BID [facility] Stop: 01/05/24 00:29 Last Admin: 12/19/23 08:55 Dose: 1 appln Miscellaneous (Remove Lidoderm Patch) 1 each N/A DAILY@2100 [facility] Stop: 01/08/24 20:59 Last Admin: 12/18/23 19:39 Dose: 1 each Oxycodone HCl (Oxycodone Hcl Ir 5 Mg Tab (Immediate Release)) 7.5 mg PO Q4H PRN PRN Reason: Moderate Pain (Scale 4, 5, 6) Stop: 12/23/23 11:58 Last Admin: 12/19/23 08:58 Dose: 7.5 mg Polyethylene Glycol (Polyethylene (Miralax) 17 Gm Pack) 17 gm PO DAILY PRN PRN Reason: Constipation Stop: 01/04/24 14:19 Last Admin: 12/16/23 08:58 Dose: 17 gm Potassium Chloride (Potassium Chloride Crtab 20 Meq Tabcr) 40 meq PO BID [facility]JE[facility] Stop: 01/16/24 20:59 Last Admin: 12/19/23 08:52 Dose: 40 meq Spironolactone (Spironolactone 25 Mg Tab) 25 mg PO DAILY [facility] Stop: 01/17/24 08:59 Last Admin: 12/19/23 08:53 Dose: 25 mg
[2023-12-20 06:57] LABS: Hematocrit (blood only) 30.7 % (37.0-47.0); Hemoglobin 9.5 g/dl (12.0-16.0); Mean Corpuscular Hemoglobin 27.4 pg (25.0-34.0); Mean Corpuscular Hgb Conc 30.9 g/dL (32.0-36.0); Mean Corpuscular Volume 88.5 fL (80.0-100.0); Mean Platelet Volume 10.5 fL (9.4-12.4); Platelet Count 259 K/uL (130-400); RDW Coefficient of Variation 16.5 % (11.5-14.5); Red Blood Count 3.47 M/uL (4.20-5.40); White Blood Count 11.73 K/ul (4.8-10.8)
[2023-12-20 07:25] LABS: BUN Creatinine Ratio 33.8 (10-20); Creatinine Clr Calc Pharmacy 67.1 ml/min; Est GFR (Non-African American) 40.5 ml/min; Magnesium 2.2 mg/dl (1.7-2.4); Phosphorus 3.9 mg/dl (2.5-4.9); Potassium 4.3 mmol/L (3.5-5.1)
--- NOTE | 2023-12-20 08:10 | Hospitalist Progress Note ---
Date of Service December 20, 2023 Assessment & Plan (1) Atrial fibrillation with rapid ventricular response: (2) Elevated troponin: (3) COVID-19: (4) Hypoxia: (5) Abdominal pain: (6) Urolithiasis: (7) Generalized weakness: (8) Tachycardia-bradycardia syndrome: (9) Hypertension: (10) HLD (hyperlipidemia): (11) Hypothyroidism: (12) Morbid obesity with BMI of 60.0-69.9, adult: Plan Ms. Cox is a 63 year old woman with PMHx significant for paroxysmal atrial fibrillation anticoagulated on Eliquis, tachybradycardia syndrome refusing pacemaker, HTN, HLD, hypothyroidism, obesity, obstructive uropathy s/p L uretal stent placement on 11/08 admitted with R sided abdominal pain, FLETCHER and atrial fibrillation with RVR in the setting of a COVID infection and UTI. Patient's course complicated by ongoing atrial fibrillation. Patient is now on oral digoxin and still diuresing, though minimally net negative; however, renal function continues to downtrend at this point. #Atrial fibrillation with rapid ventricular response Presented with R abd pain, found to be in a fib with RVR Home: sotalol 40mg BID with Eliquis for anticoagulation for PAF. Had not taken her AM dose of sotalol. On admission, P: 147, RR: 19, BP 111/71. K 3.8, Magnesium: 2.0, TSH: 5.9 T4 0.98 EKG on admission: A-fib RVR, rate 143 In ER received a total of 15mg of IV Lopressor. Heart rate improved from 140s down to 120s. Patient given her morning dose of sotalol in the ER. Dilt drip started to no avail. Cardiology was then consulted- appreciate recs. Recommended: -holding home sotalol in setting of FLETCHER, transitioned at first to PO metoprolol tartrate 25mg QID with diltiazem drip. Continued Eliquis 5mg BID for anticoagulation -deferring repeat echo Cardiology recommendations on going, -Transitioned to amiodarone drip from 12/09-12/12; discontinued PO amiodaron e; rates remained elevated, loaded with digoxin 12/16. -Discontinue IV lasix 100mg TID -Continue spironolactone 25mg metoprolol 100mg XL BID -Continue on PO digoxin 125mcg daily #Acute on chronic heart failure with preserved ejection fraction Echo 2021- EF 65-70% Aggressive ongoing diuersis with lasix 100mg TID, held 12/20 Potassium supplementation Continue spironolactone 25mg daily and metoprolol 100mg XL BID Plan for Po torsemide in am Plan for OP HF follow up #Elevated troponin *resolved Initial troponin 54. Downtrended to 41.3 EKG with noted atrial fibrillation with RVR Likely elevated secondary to demand ischemia from rapid A-fib, doubt ACS #Tachycardia-bradycardia syndrome History of tachybrady syndrome. Follows with cardiology and EP. In past has refused pacemaker Monitor on telemetry #Hypertension Hold home losartan and HCTZ with current FLETCHER Monitor BPs Currently on metoprolol 100mg BID, spironolactone 25mg daily Plan for torsemide in am #Acute complicated UTI 2/2 e coli WBC elevated UA repeated and now with nitrites Continue Rocephin on 12/15, EOT tentatively 12/29 for 14 day regimen iso stents Urine Cx growing E coli- follow Cx to narrow abx -Continue IV abx until discussion with Urology regarding stents, urine muddy brown but improving -Holding on conversation as current cardiac status makes patient a tenuous candidate for sedation/removal, will reach out when heart status more stable Discussed with LYDIA Tucker with Urology: will keep hernandez and follow up OP #Gross Hematuria #Acute on Chronic microcytic anemia *stable Pt with gross blood in urinary canister near bed previously Hgb in 9-10 range currently, was 11.4 on 11/08, appears her baseline is ~11 Iron level 44, ferritin 313 Urology consult- appreciate recs -per cardiology and urology, continue with anticoagulation at this time - 12/08- hernandez in, hand irrigate for clots retention, suprapubic pain Urine appears still muddy brown, but likely 2/2 resolving infection Discussed with LYDIA Tucker with Urology: will keep hernandez and follow up OP #COVID-19 *resoled #Acute hypoxic respiratory failure, resolved Pt with sore throat, cough, congestion that started 3-4 days prior to arrival In ER 89% on room air up to 95% on 3L nasal cannula COVID-19 positive on 12/04/22, enhanced precautions completed, completed dex course Chest xray with no acute changes Supplemental oxygen as needed, wean as tolerated Incentive spirometry, flutter valve Further supportive treatment as needed Stable, currently on RA #FLETCHER (acute kidney injury) *stable Likely 2/2 a fib RVR and infection Cr: 1.6 on admission, was 0.94 the day before Received gentle diuresis with NSS @70 for 2 bags. Nephrology consult placed on 12/07 -continue to trend, no further IVF required Monitor fluid balance Avoid contrast/nephrotoxic meds Monitor renal function, continue to trend--1.29 this am Plan to transition to PO torsemide in am #obstructive uropathy s/p stent placement 10/2023 Patient with reported right-sided abdominal pain that started morning of admission. 12/04/2023 (day before admission), CT abdomen pelvis noted LEFT-sided ureteral stent in place, bilateral intrarenal stones, proximal left ureteral stone, diverticulosis with no signs of diverticulitis. No acute appendicitis or bowel obstruction. No evidence of visceral or intra-abdominal injury. No acute frac ture. Pain control Urology consult placed for hematuria (see above) but appreciate recs for this as well -pt now requesting to have stents removed but needs HR under control -Plan to discuss with urology once A Fib is controlled: plan for OP follow up, keep hernandez in place #Generalized weakness Ambulates with cane at baseline. Increased generalized weakness over the past several days. Likely secondary to underlying infection with COVID-19 12/04/2023: CT head: No acute intracranial abnormality Fall precautions PT/OT eval-recommending home with s/o support and HH services -Patient willing to consider HH services or rehab if covered, will discuss with CM #HLD (hyperlipidemia) Continue atorvastatin #Hypothyroidism Continue levothyroxine #Morbid obesity with BMI of 60.0-69.9, adult BMI: 68.3 Encourage weight loss Pt ordered bariatric bed for better comfort #Constipation Docusate sodium 100mg BID PRN Miralax ordered PRN milk of magnesia Diet: HH DVT Prophylaxis: On Eliquis CODE STATUS: Full code Dispo: PT/OT recommending home with s/o support and HH services Admission and Anticipated Discharge Date Admission Date: December 05, 2023 Subjective Denies any acute concerns, notes walking to bathroom, but feels exhausted. States she is scared for rehab and any out of pocket costs, discussed that authorization has to be obtained Denies chest pain, palpitations or other acute concerns. Notes sore throat thats the same as usual, but denies new cough, subjective fevers, odynophagia Physical Exam Constitutional: sitting in bed side chair Respiratory: difficult to appreciate 2/2 habitus Cardiovascular: difficult to appreciate 2/2 habitus Results & Data Results & Data Vital Signs (Past 12 Hours) Vital Signs Temp Pulse Pulse Resp BP Pulse Ox O2 Del Method 12/20/23 07:23 36.5 C 86 18 128/66 97 Room Air 12/20/23 02:44 36.4 C L 109 H 22 144/75 H 95 Room Air 12/19/23 23:45 36.6 C 75 18 126/80 99 Room Air 12/19/23 23:15 Room Air Laboratory Results Short CBC 12/20/23 Range/Units 06:20 WBC 11.73 H (4.8-10.8) K/ul Hgb 9.5 L (12.0-16.0) g/dl Hct 30.7 L (37.0-47.0) % Plt Count 259 (130-400) K/uL BMP 12/20/23 06:20 Sodium 135 L Potassium 4.3 Chloride 98 Carbon Dioxide 30 BUN 47 H Creatinine 1.39 H Glucose 101 H Calcium 9.0 Medications Administered Home Medications Medication Instructions Recorded Confirmed Last Taken apixaban 5 mg tablet (Eliquis) 5 mg PO BID #60 tabs 10/23/21 12/05/23 12/04/23 levothyroxine 100 mcg tablet 100 mcg PO QAM 10/23/21 12/05/23 12/04/23 (Euthyrox) alendronate 70 mg tablet 70 mg PO WK 05/15/22 12/05/23 12/02/23 hydrochlorothiazide 25 mg tablet 25 mg PO QAM 05/16/22 12/05/23 12/17/22 hydroxyzine HCl 25 mg tablet 25 - 50 mg (1 - 2 x 25 mg) PO Q6H 07/10/22 12/05/23 Unknown PRN itching #20 tabs sotalol 80 mg tablet 40 mg PO BID17 11/08/23 12/05/23 12/04/23 valacyclovir 1 gram tablet See Rx Instructions .Route 11/08/23 12/05/23 Unknown (Valtrex) .COMPLEX PRN Cold Sores diclofenac sodium 1 % topical gel 4 g EXT Q6H PRN knee pain #100 11/11/23 12/05/23 Unknown (Voltaren Arthritis Pain) grams gabapentin 300 mg capsule 300 mg PO HS #30 caps 11/11/23 12/05/23 Unknown miconazole nitrate 2 % topical 1 applic EXT BID PRN fungal 11/11/23 12/05/23 Unknown powder (Desenex) infection #85 grams ergocalciferol (vitamin D2) 1,250 50,000 unit PO .weekly 6 weeks #6 11/13/23 12/05/23 12/01/23 mcg (50,000 unit) capsule (Vitamin caps D2) atorvastatin 40 mg tablet 40 mg PO DAILY 12/05/23 12/05/23 12/04/23 benzonatate 100 mg capsule 100 mg PO TID PRN cough #20 caps 12/05/23 12/05/23 Unknown losartan 50 mg tablet 50 mg PO DAILY 12/05/23 12/05/23 12/04/23 nirmatrelvir 300 mg (150 mg See Rx Instructions PO .COMPLEX 12/05/23 12/05/23 Unknown x2)-ritonavir 100 mg tablet,dose #30 tabs pack (Paxlovid) Active Medications Generic Name Dose Route Start Last Admin Trade Name Freq PRN Reason Stop Dose Admin Acetaminophen 1,000 mg 12/09/23 11:59 12/18/23 16:20 Acetaminophen 500 Mg Tab PO 01/04/24 14:19 1,000 mg Q8H PRN Administration Pain or Fever Apixaban 5 mg 12/05/23 21:00 12/20/23 08:05 Apixaban 5 Mg Tablet PO 01/04/24 20:59 5 mg BID BALJEET Administration Atorvastatin Calcium 40 mg 12/06/23 09:00 12/20/23 08:06 Atorvastatin 40 Mg Tab PO 01/05/24 08:59 40 mg DAILY [facility]JE[facility] Administration Diclofenac Sodium 4 gm 12/05/23 14:20 12/20/23 08:07 Diclofenac Sod 1% Gel 100 Gm Tube EXT 01/04/24 14:19 4 gm Q6H PRN Administration knee pain Protocol Digoxin 0.125 mg 12/19/23 16:00 12/20/23 15:45 Digoxin 0.125 Mg Tab PO 01/18/24 15:59 0.125 mg DAILY@1600 [facility] Administration Docusate Sodium 100 mg 12/11/23 21:00 12/20/23 08:04 Docusate Sodium 100 Mg Cap PO 01/10/24 20:59 100 mg BID [facility]JEET Administration Ergocalciferol 50,000 units 12/08/23 09:00 12/15/23 09:10 Ergocalciferol 50,000 Units 1250 Mcg Cap PO 01/07/24 08:59 50,000 units We@0900 [facility]JE[facility] Administration Gabapentin 300 mg 12/05/23 21:00 12/19/23 19:43 Gabapentin 300 Mg Cap PO 01/04/24 20:59 300 mg HS [facility]JEET Administration Guaifenesin 1,200 mg 12/05/23 21:00 12/20/23 13:28 Guaifenesin 600 Mg Tabcr PO 01/04/24 20:59 1,200 mg Q12 [facility] Administration Hydroxyzine HCl 25 mg 12/16/23 16:01 12/19/23 19:42 Hydroxyzine Hcl 25 Mg Tab PO 01/15/24 16:00 25 mg Q6H PRN Administration Anxiety/Insomnia Ceftriaxone Sodium 2,000 mg/ 50 mls @ 100 mls/hr 12/16/23 09:00 12/20/23 08:50 Dextrose IV 12/26/23 08:59 Infused Q24H [facility] Infusion Protocol Levothyroxine Sodium 100 mcg 12/06/23 06:30 12/20/23 06:22 Levothyroxine Sodium 100 Mcg Tablet PO 01/05/24 06:29 100 mcg DAILYBB [facility]JE[facility] Administration Lidocaine 1 patch 12/09/23 09:15 12/20/23 08:07 Lidocaine 5% 1 Patch TD 01/08/24 09:14 Not Given QAM [facility] Metoprolol Succinate 100 mg 12/15/23 21:00 12/20/23 08:06 Metoprolol Succ 50mg Ext Rel Tab PO 01/14/24 20:59 100 mg BID [facility]JEET Administration Miconazole Nitrate 1 appln 12/06/23 00:30 12/20/23 13:28 Miconazole Nitrate Powder 85 Gm EXT 01/05/24 00:29 1 appln BID [facility]JEET Administration Miscellaneous 1 each 12/09/23 21:00 12/19/23 19:44 Remove Lidoderm Patch N/A 01/08/24 20:59 1 each DAILY@2100 [facility] Administration Oxycodone HCl 7.5 mg 12/09/23 12:06 12/20/23 08:04 Oxycodone Hcl Ir 5 Mg Tab (Immediate Release) PO 12/23/23 11:58 7.5 mg Q4H PRN Administration Moderate Pain (Scale 4, 5, 6) Polyethylene Glycol 17 gm 12/05/23 14:20 12/16/23 08:58 Polyethylene (Miralax) 17 Gm Pack PO 01/04/24 14:19 17 gm DAILY PRN Administration Constipation Potassium Chloride 40 meq 12/17/23 21:00 12/20/23 08:05 Potassium Chloride Crtab 20 Meq Tabcr PO 01/16/24 20:59 40 meq BID [facility] Administration Spironolactone 25 mg 12/18/23 09:00 12/20/23 08:06 Spironolactone 25 Mg Tab PO 01/17/24 08:59 25 mg DAILY BALJEET Administration
--- NOTE | 2023-12-20 17:22 | Cardiology Progress Note ---
Date of Service December 20, 2023 Assessment & Plan (1) Atrial fibrillation with rapid ventricular response: Plan: Continue rate control with metoprolol succinate 100 mg p.o. twice daily, digoxin 0.125 mg by mouth daily. Continue Eliquis for stroke prophylaxis. Danielle catheter remains in place. Gross hematuria improved. (2) Acute on chronic heart failure with preserved ejection fraction: Plan: Transition to torsemide 60 mg by mouth daily. (3) COVID-19: (4) Morbid obesity with BMI of 60.0-69.9, adult: (5) Gross hematuria: Admission and Anticipated Discharge Date Admission Date: December 05, 2023 Subjective Pt seen in cardiology followup. Hospital day 15. Still has a cough and sore throat , but feeling overall impoved. Telemetry reveals atrial fibrillation with rates as high as 144 bpm, but often times in the range of 100 to 112 bpm. Physical Exam Constitutional: + obese; no acute distress Respiratory: no labored breathing Cardiovascular: Rate/Rhythm: + tachycardic and + irregularly irregular Heart Sounds: no murmur Extremities: no edema Gastrointestinal (Abdomen): normal bowel sounds, soft, nontender, no hepatosplenomegaly Neurologic: PERRL, EOMI, accommodation nl, no face palsy, no dysarthria Results & Data Vital Signs (Past 12 Hours) Vital Signs Temp Pulse Pulse Resp BP BP Pulse Ox 12/20/23 15:45 112 H 12/20/23 14:56 36.4 C L 87 19 121/64 98 12/20/23 10:28 36.6 C 71 20 122/47 L 96 12/20/23 08:00 93 H 12/20/23 08:00 12/20/23 07:23 36.5 C 86 18 128/66 97 O2 Del Method 12/20/23 15:45 12/20/23 14:56 Room Air 12/20/23 10:28 Room Air 12/20/23 08:00 12/20/23 08:00 Room Air 12/20/23 07:23 Room Air Laboratory Results CBC 12/20/23 Range/Units 06:20 WBC 11.73 H (4.8-10.8) K/ul RBC 3.47 L (4.20-5.40) M/uL Hgb 9.5 L (12.0-16.0) g/dl Hct 30.7 L (37.0-47.0) % Plt Count 259 (130-400) K/uL Comprehensive Metabolic Panel 12/20/23 Range/Units 06:20 Sodium 135 L (136-145) mmol/L Potassium 4.3 (3.5-5.1) mmol/L Chloride 98 (98-107) mmol/L Carbon Dioxide 30 (21-32) mmol/L BUN 47 H (6-23) mg/dl Creatinine 1.39 H (0.6-1.2) mg/dl Glucose 101 H (70-99(Fasting)) mg/dl Calcium 9.0 (8.6-10.3) mg/dl Intake and Output 12/20/23 12/20/23 12/20/23 06:59 14:59 22:59 Intake Total 400 / 810 290 / 290 Output Total 601 / 1353 200 / 200 Balance -201 / -543 90 / 90 Intake: IV 50 / 50 cefTRIAXone SODIUM 2,000 mg In 50 / 50 Dextrose 5 % Mini-B 50 ml @ 100 mls/hr IV Q24H [facility] Rx#: [id number] Oral 400 / 760 240 / 240 Output: Urine Amount (Catheter) 600 / 1350 200 / 200 Danielle/Indwelling 600 / 1350 200 / 200 # Bowel Movements 1 / 3
[2023-12-20] MEDS ORDERED: guaiFENesin/DEXTROM SYRUP 200MG/20MG 10ML UDC PO PRN (17:27)
[2023-12-20] MEDS: MICONAZOLE NITRATE 2% CR 30 GM TUBE EXT SCH (19:57)
[2023-12-21 08:17] LABS: Hematocrit (blood only) 32.4 % (37.0-47.0); Hemoglobin 9.9 g/dl (12.0-16.0); Mean Corpuscular Hgb Conc 30.6 g/dL (32.0-36.0); Mean Corpuscular Volume 88.5 fL (80.0-100.0); Mean Platelet Volume 10.3 fL (9.4-12.4); Platelet Count 295 K/uL (130-400); RDW Coefficient of Variation 16.5 % (11.5-14.5); RDW Standard Deviation 52.9 fL (36.4-46.3); Red Blood Count 3.66 M/uL (4.20-5.40); White Blood Count 9.35 K/ul (4.8-10.8)
[2023-12-21 08:30] LABS: BUN Creatinine Ratio 33.6 (10-20); Calcium 9.3 mg/dl (8.6-10.3); Creatinine Clr Calc Pharmacy 69.6 ml/min; Est GFR (African American) 49.1 ml/min; Est GFR (Non-African American) 42.4 ml/min; Magnesium 2.3 mg/dl (1.7-2.4); Phosphorus 3.8 mg/dl (2.5-4.9); Potassium 4.6 mmol/L (3.5-5.1)
[2023-12-21] MEDS: TORSEMIDE 20 MG TAB PO SCH (09:09)
--- NOTE | 2023-12-21 14:18 | Cardiology Progress Note ---
Date of Service December 21, 2023 Assessment & Plan (1) Atrial fibrillation with rapid ventricular response: Plan: Hospital day 16. 63-year-old female with body mass index of 68 kg/m, chronic lymphedema, and paroxysmal atrial fibrillation with borderline tachycardia- bradycardia syndrome. She had previously been maintained in sinus rhythm on sotalol 40 mg twice daily which was held on presentation due to acute kidney injury. She presented with upper respiratory complaint symptoms and findings of SARS-CoV-2 infection. Atrial fibrillation with rapid ventricular spots noted on presentation along with acute kidney injury prompting discontinuation of low-dose sotalol. Initially IV diltiazem utilized for rate control, then a trial of amiodarone had been initiated but patient has remained in atrial fibrillation. Ultimately stress she has been altered from rhythm control to a rate control strategy. Continue rate control with metoprolol succinate 100 mg p.o. twice daily, digoxin 0.125 mg by mouth daily. Continue Eliquis for stroke prophylaxis. Danielle catheter remains in place. Gross hematuria improved. (2) Acute on chronic heart failure with preserved ejection fraction: Plan: Lower extremity edema worse over the last 2 days with de-escalation of diuretic. Resume furosemide 40 mg IV 3 times daily.Repeat BMP am of 12/22/23. (3) Gross hematuria: Plan: Improved. Recent left ureter stent 11/08/2023. Outpatient follow-up recommended by urology with plans for repeat cystoscopy in the future. Admission and Anticipated Discharge Date Admission Date: December 05, 2023 Subjective Patient seen in cardiology follow-up of atrial fibrillation and lower extremity edema. She continues to be in atrial fibrillation. At rest, rates in the range of 100-[address] bpm. Danielle catheter in place. Hematuria that had been present earlier on in the hospital stay has been approved. Subjectively, patient notes worsening lower extremity edema since yesterday 12/20/2023. Physical Exam Constitutional: + ill appearing and + obese; no acute di stress Respiratory: no labored breathing Cardiovascular: Rate/Rhythm: + tachycardic and + irregularly irregular Heart Sounds: no murmur Extremities: + edema (Lymphedema pattern, 2+ lower extremity edema, mild erythema of the skin) Gastrointestinal (Abdomen): normal bowel sounds, soft, nontender, no hepat osplenomegaly Neurologic: PERRL, EOMI, accommodation nl, no face palsy, no dysarthria Results & Data Vital Signs (Past 12 Hours) Vital Signs Temp Pulse Pulse Resp BP BP Pulse Ox 12/21/23 10:32 36.5 C 88 20 134/83 93 12/21/23 09:36 12/21/23 06:58 36.6 C 102 H 20 120/80 95 12/21/23 06:53 120 H 12/21/23 02:46 36.5 C 105 H 18 135/73 96 O2 Del Method 12/21/23 10:32 Room Air 12/21/23 09:36 Room Air 12/21/23 06:58 Room Air 12/21/23 06:53 12/21/23 02:46 Room Air Laboratory Results CBC 12/21/23 Range/Units 07:48 WBC 9.35 (4.8-10.8) K/ul RBC 3.66 L (4.20-5.40) M/uL Hgb 9.9 L (12.0-16.0) g/dl Hct 32.4 L (37.0-47.0) % Plt Count 295 (130-400) K/uL Comprehensive Metabolic Panel 12/21/23 Range/Units 07:48 Sodium 131 L (136-145) mmol/L Potassium 4.6 (3.5-5.1) mmol/L Chloride 95 L (98-107) mmol/L Carbon Dioxide 28 (21-32) mmol/L BUN 45 H (6-23) mg/dl Creatinine 1.34 H (0.6-1.2) mg/dl Glucose 114 H (70-99(Fasting)) mg/dl Calcium 9.3 (8.6-10.3) mg/dl Intake and Output 12/20/23 12/21/23 12/21/23 22:59 06:59 14:59 Intake Total 400 / 690 50 / 50 Output Total 951 / 1151 Balance -551 / -461 50 / 50 Intake: IV 50 / 50 cefTRIAXone SODIUM 2,000 mg In 50 / 50 Dextrose 5 % Mini-B 50 ml @ 100 mls/hr IV Q24H [facility] Rx#: [id number] Oral 400 / 640 Output: Urine Amount (Catheter) 950 / 1150 Danielle/Indwelling 950 / 1150 # Bowel Movements Other: Weight 174.5 kg 174.7 kg
[2023-12-21] MEDS: FUROSEMIDE INJ 20 MG/2 ML VIAL IV ONE (15:45)
--- NOTE | 2023-12-21 16:50 | Hospitalist Progress Note ---
Date of Service December 21, 2023 Assessment & Plan (1) Atrial fibrillation with rapid ventricular response: (2) Elevated troponin: (3) COVID-19: (4) Hypoxia: (5) Abdominal pain: (6) Urolithiasis: (7) Generalized weakness: (8) Tachycardia-bradycardia syndrome: (9) Hypertension: (10) HLD (hyperlipidemia): (11) Hypothyroidism: (12) Morbid obesity with BMI of 60.0-69.9, adult: Plan Ms. Cox is a 63 year old woman with PMHx significant for paroxysmal atrial fibrillation anticoagulated on Eliquis, tachybradycardia syndrome refusing pacemaker, HTN, HLD, hypothyroidism, obesity, obstructive uropathy s/p L uretal stent placement on 11/08 admitted with R sided abdominal pain, FLETCHER and atrial fibrillation with RVR in the setting of a COVID infection and UTI. Patient's course complicated by ongoing atrial fibrillation. Patient is now on oral digoxin and still diuresing, though minimally net negative; however, renal function continues to downtrend at this point. Course complicated by worsening edema upon cessation of IV lasix as well as difficult to control RVR. #Atrial fibrillation with rapid ventricular response Presented with R abd pain, found to be in a fib with RVR Home: sotalol 40mg BID with Eliquis for anticoagulation for PAF. Had not taken her AM dose of sotalol. On admission, P: 147, RR: 19, BP 111/71. K 3.8, Magnesium: 2.0, TSH: 5.9 T4 0.98 EKG on admission: A-fib RVR, rate 143 In ER received a total of 15mg of IV Lopressor. Heart rate improved from 140s down to 120s. Patient given her morning dose of sotalol in the ER. Dilt drip started to no avail. Cardiology was then consulted- appreciate recs. Recommended: -holding home sotalol in setting of FLETCHER, transitioned at first to PO metoprolol tartrate 25mg QID with diltiazem drip. Continued Eliquis 5mg BID for anticoagulation -deferring repeat echo Cardiology recommendations on going, -Transitioned to amiodarone drip from 12/09-12/12; discontinued PO amiodarone; rates remained elevated, loaded with digoxin 12/16. -Resume IV lasix 40mg TID -Continue spironolactone 25mg metoprolol 100mg XL BID -Continue on PO digoxin 125mcg daily Ordered BMP #Acute on chronic heart failure with preserved ejection fraction Echo 2021- EF 65-70% Aggressive ongoing diuersis with lasix 40mg TID, held 12/20 Potassium supplementation Continue spironolactone 25mg daily and metoprolol 100mg XL BID Discontinue PO and transition back to IV 40mg TID #Elevated troponin *resolved Initial troponin 54. Downtrended to 41.3 EKG with noted atrial fibrillation with RVR Likely elevated secondary to demand ischemia from rapid A-fib, doubt ACS #Tachycardia-bradycardia syndrome *stable History of tachybrady syndrome. Follows with cardiology and EP. In past has refused pacemaker Monitor on telemetry #Hypertension Hold home losartan and HCTZ with current FLETCHER Monitor BPs Currently on metoprolol 100mg BID, spironolactone 25mg daily Plan for torsemide in am #Acute complicated UTI 2/2 e coli WBC elevated UA repeated and now with nitrites Continue Rocephin on 12/15, EOT tentatively 12/29 for 14 day regimen iso stents Urine Cx growing E coli- follow Cx to narrow abx -Continue IV abx until discussion with Urology regarding stents, urine muddy brown but improving -Holding on conversation as current cardiac status makes patient a tenuous candidate for sedation/removal, will reach out when heart status more stable Discussed with LYDIA Tucker with Urology: will keep hernandez and follow up OP #Gross Hematuria *improving #Acute on Chronic microcytic anemia *stable Pt with gross blood in urinary canister near bed previously Hgb in 9-10 range currently, was 11.4 on 11/08, appears her baseline is ~11 Iron level 44, ferritin 313 Urology consult- appreciate recs -per cardiology and urology, continue with anticoagulation at this time - 12/08- hernandez in, hand irrigate for clots retention, suprapubic pain Urine appears still muddy brown, but likely 2/2 resolving infection Discussed with LYDIA Tucker with Urology: will keep hernandez and follow up OP #COVID-19 *resolved #Acute hypoxic respiratory failure, resolved Pt with sore throat, cough, congestion that started 3-4 days prior to arrival In ER 89% on room air up to 95% on 3L nasal cannula COVID-19 positive on 12/04/22, enhanced precautions completed, completed dex course Chest xray with no acute changes Supplemental oxygen as needed, wean as tolerated Incentive spirometry, flutter valve Further supportive treatment as needed Stable, currently on RA #FLETCHER (acute kidney injury) *stable Likely 2/2 a fib RVR and infection Cr: 1.6 on admission, was 0.94 the day before Received gentle diuresis with NSS @70 for 2 bags. Nephrology consult placed on 12/07 -continue to trend, no further IVF required Monitor fluid balance Avoid contrast/nephrotoxic meds Monitor renal function, continue to trend CMP IV lasix 40mg TID #obstructive uropathy s/p stent placement 10/2023 Patient with reported right-sided abdominal pain that started morning of admission. 12/04/2023 (day before admission), CT abdomen pelvis noted LEFT-sided ureteral stent in place, bilateral intrarenal stones, proximal left ureteral stone, diverticulosis with no signs of diverticulitis. No acute appendicitis or bowel obstruction. No evidence of visceral or intra-abdominal injury. No acute fracture. Pain control Urology consult placed for hematuria (see above) but appreciate recs for this as well -pt now requesting to have stents removed but needs HR under control -Plan to discuss with urology once A Fib is controlled: plan for OP follow up, keep hernandez in place #Generalized weakness Ambulates with cane at baseline. Increased generalized weakness over the past several days. Likely secondary to underlying infection with COVID-19 12/04/2023: CT head: No acute intracranial abnormality Fall precautions PT/OT eval-recommending home with s/o support and HH services -Patient willing to consider HH services or rehab if covered, will discuss with CM #HLD (hyperlipidemia) Continue atorvastatin #Hypothyroidism Continue levothyroxine #Morbid obesity with BMI of 60.0-69.9, adult BMI: 68.3 Encourage weight loss Pt ordered bariatric bed for better comfort #Constipation Docusate sodium 100mg BID PRN Miralax ordered PRN milk of magnesia Diet: HH DVT Prophylaxis: On Eliquis CODE STATUS: Full code Dispo: PT/OT now with rehab recommendations Admission and Anticipated Discharge Date Admission Date: December 05, 2023 Subjective Reports significant leg swelling overnight Denies chest pain or palpitations Reports feeling worried about leg swelling and frustrated Physical Exam Respiratory: difficult to appreciate 2/2 habitus Cardiovascular: difficult to appreciate 2/2 habitus Notable 3+ bilateral pitting edema with weeping of legs Results & Data Results & Data Vital Signs (Past 12 Hours) Vital Signs Temp Pulse Pulse Resp BP BP Pulse Ox 12/21/23 15:45 95 H 12/21/23 15:36 36.6 C 95 H 17 116/42 L 98 12/21/23 15:24 115 H 12/21/23 10:32 36.5 C 88 20 134/83 93 12/21/23 09:36 12/21/23 06:58 36.6 C 102 H 20 120/80 95 12/21/23 06:53 120 H O2 Del Method 12/21/23 15:45 12/21/23 15:36 Room Air 12/21/23 15:24 12/21/23 10:32 Room Air 12/21/23 09:36 Room Air 12/21/23 06:58 Room Air 12/21/23 06:53 Laboratory Results Short CBC 12/21/23 Range/Units 07:48 WBC 9.35 (4.8-10.8) K/ul Hgb 9.9 L (12.0-16.0) g/dl Hct 32.4 L (37.0-47.0) % Plt Count 295 (130-400) K/uL BMP 12/21/23 07:48 Sodium 131 L Potassium 4.6 Chloride 95 L Carbon Dioxide 28 BUN 45 H Creatinine 1.34 H Glucose 114 H Calcium 9.3 Medications Administered Home Medications Medication Instructions Recorded Confirmed Last Taken apixaban 5 mg tablet (Eliquis) 5 mg PO BID #60 tabs 10/23/21 12/05/23 12/04/23 levothyroxine 100 mcg tablet 100 mcg PO QAM 10/23/21 12/05/23 12/04/23 (Euthyrox) alendronate 70 mg tablet 70 mg PO WK 05/15/22 12/05/23 12/02/23 hydrochlorothiazide 25 mg tablet 25 mg PO QAM 05/16/22 12/05/23 12/17/22 hydroxyzine HCl 25 mg tablet 25 - 50 mg (1 - 2 x 25 mg) PO Q6H 07/10/22 12/05/23 Unknown PRN itching #20 tabs sotalol 80 mg tablet 40 mg PO BID17 12/11/23 01/07/24 01/06/24 valacyclovir 1 gram tablet See Rx Instructions .Route 11/08/23 12/05/23 Unknown (Valtrex) .COMPLEX PRN Cold Sores diclofenac sodium 1 % topical gel 4 g EXT Q6H PRN knee pain #100 11/11/23 12/05/23 Unknown (Voltaren Arthritis Pain) grams gabapentin 300 mg capsule 300 mg PO HS #30 caps 11/11/23 12/05/23 Unknown miconazole nitrate 2 % topical 1 applic EXT BID PRN fungal 11/11/23 12/05/23 Unknown powder (Desenex) infection #85 grams ergocalciferol (vitamin D2) 1,250 50,000 unit PO .weekly 6 weeks #6 11/13/23 12/05/23 12/01/23 mcg (50,000 unit) capsule (Vitamin caps D2) atorvastatin 40 mg tablet 40 mg PO DAILY 12/05/23 12/05/23 12/04/23 benzonatate 100 mg capsule 100 mg PO TID PRN cough #20 caps 12/05/23 12/05/23 Unknown losartan 50 mg tablet 50 mg PO DAILY 12/05/23 12/05/23 12/04/23 nirmatrelvir 300 mg (150 mg See Rx Instructions PO .COMPLEX 12/05/23 12/05/23 Unknown x2)-ritonavir 100 mg tablet,dose #30 tabs pack (Paxlovid) Active Medications Generic Name Dose Route Start Last Admin Trade Name Freq PRN Reason Stop Dose Admin Acetaminophen 1,000 mg 12/09/23 11:59 12/18/23 16:20 Acetaminophen 500 Mg Tab PO 01/04/24 14:19 1,000 mg Q8H PRN Administration Pain or Fever Apixaban 5 mg 12/05/23 21:00 12/21/23 09:27 Apixaban 5 Mg Tablet PO 01/04/24 20:59 5 mg BID BALJEET Administration Atorvastatin Calcium 40 mg 12/06/23 09:00 12/21/23 09:10 Atorvastatin 40 Mg Tab PO 01/05/24 08:59 40 mg DAILY BALJEET Administration Diclofenac Sodium 4 gm 12/05/23 14:20 12/20/23 19:58 Diclofenac Sod 1% Gel 100 Gm Tube EXT 01/04/24 14:19 4 gm Q6H PRN Administration knee pain Protocol Digoxin 0.125 mg 12/19/23 16:00 12/21/23 15:45 Digoxin 0.125 Mg Tab PO 01/18/24 15:59 0.125 mg DAILY@1600 BALJEET Administration Docusate Sodium 100 mg 12/11/23 21:00 12/21/23 09:09 Docusate Sodium 100 Mg Cap PO 01/10/24 20:59 100 mg BID BALJEET Administration Ergocalciferol 50,000 units 12/08/23 09:00 12/15/23 09:10 Ergocalciferol 50,000 Units 1250 Mcg Cap PO 01/07/24 08:59 50,000 units We@0900 BALJEET Administration Gabapentin 300 mg 12/05/23 21:00 12/20/23 19:57 Gabapentin 300 Mg Cap PO 01/04/24 20:59 300 mg HS BALJEET Administration Hydroxyzine HCl 25 mg 12/16/23 16:01 12/19/23 19:42 Hydroxyzine Hcl 25 Mg Tab PO 01/15/24 16:00 25 mg Q6H PRN Administration Anxiety/Insomnia Ceftriaxone Sodium 2,000 mg/ 50 mls @ 100 mls/hr 12/16/23 09:00 12/21/23 09:43 Dextrose IV 12/26/23 08:59 Infused Q24H [facility] Infusion Protocol Levothyroxine Sodium 100 mcg 12/06/23 06:30 12/21/23 06:22 Levothyroxine Sodium 100 Mcg Tablet PO 01/05/24 06:29 100 mcg DAILYBB BALJEET Administration Lidocaine 1 patch 12/09/23 09:15 12/21/23 09:09 Lidocaine 5% 1 Patch TD 01/08/24 09:14 1 patch QAM BALJEET Administration Metoprolol Succinate 100 mg 12/15/23 21:00 12/21/23 09:09 Metoprolol Succ 50mg Ext Rel Tab PO 01/14/24 20:59 100 mg BID BALJEET Administration Miconazole Nitrate 1 appln 12/06/23 00:30 12/21/23 09:10 Miconazole Nitrate Powder 85 Gm EXT 01/05/24 00:29 1 appln BID BALJEET Administration Miconazole Nitrate 1 appln 12/20/23 21:00 12/21/23 09:10 Miconazole Nitrate 2% Cr 30 Gm Tube EXT 01/19/24 20:59 1 appln BID BALJEET Administration Miscellaneous 1 each 12/09/23 21:00 12/20/23 19:59 Remove Lidoderm Patch N/A 01/08/24 20:59 Not Given DAILY@2100 BALJEET Oxycodone HCl 7.5 mg 12/09/23 12:06 12/21/23 09:30 Oxycodone Hcl Ir 5 Mg Tab (Immediate Release) PO 12/23/23 11:58 7.5 mg Q4H PRN Administration Moderate Pain (Scale 4, 5, 6) Polyethylene Glycol 17 gm 12/05/23 14:20 12/16/23 08:58 Polyethylene (Miralax) 17 Gm Pack PO 01/04/24 14:19 17 gm DAILY PRN Administration Constipation Potassium Chloride 40 meq 12/17/23 21:00 12/21/23 09:10 Potassium Chloride Crtab 20 Meq Tabcr PO 01/16/24 20:59 40 meq BID BALJEET Administration Spironolactone 25 mg 12/18/23 09:00 12/21/23 09:10 Spironolactone 25 Mg Tab PO 01/17/24 08:59 25 mg DAILY BALJEET Administration
[2023-12-21] MEDS: FUROSEMIDE 40 MG/4 ML VIAL IV SCH (20:48)
[2023-12-22 08:57] LABS: Calcium 9.1 mg/dl (8.6-10.3); Magnesium 2.1 mg/dl (1.7-2.4); Potassium 4.7 mmol/L (3.5-5.1)
[2023-12-22 09:02] LABS: Creatinine Clr Calc Pharmacy 57.7 ml/min; Est GFR (Non-African American) 33.7 ml/min
--- NOTE | 2023-12-22 15:56 | Cardiology Progress Note ---
Date of Service December 22, 2023 Assessment & Plan (1) Atrial fibrillation with rapid ventricular response: Plan: Hospital day 17. 63-year-old female with body mass index of 68 kg/m, chronic lymphedema, and paroxysmal atrial fibrillation with borderline tachycardia-bradycardia syndrome. She had previously been maintained in sinus rhythm on sotalol 40 mg twice daily which was held on presentation due to acute kidney injury. She presented with upper respiratory complaint symptoms and findings of SARS-CoV-2 infection. She developed Atrial fibrillation with rapid ventricular responsealong with acute kidney injury prompting discontinuation of low-dose sotalol. Initially IV diltiazem utilized for rate control, then a trial of amiodarone had been initiated, but patient failed to convert to NSR Metoprolol titrated to 100 mg BID and digoxin added with IV bolus/load. HR's have improved and now remain around 100-100 bmp Continue Eliquis for stroke prophylaxis. Danielle catheter remains in place. Gross hematuria improved. (2) Acute on chronic heart failure with preserved ejection fraction: Plan: Significnat Lower extremity edema noted. Apparently this had worsened over the last several days. Furosemide increased to 40 mg TID yesterday. Good outputs overnight Creatinine increased from 1.3 to 1.6. Monitor. Continue spironolactone Potassium acceptable Consider future use of metolazone. However with worsening mild renal insufficiency, will not proceed today (3) Gross hematuria: Plan: Improved. Recent left ureter stent 11/08/2023. Outpatient follow-up recommended by urology with plans for repeat cystoscopy in the future. Plan Case discussed with Dr. Crow Bal spent a total of 30 minutes on the date of service in preparation, delivery, and documentation of the care provided to this patient, excluding any time spent in the performance of separately billed services. Mellisa Puentes PA-C Department of Cardiology, [facility] This chart was completed in part utilizing Speech Voice Recognition Software. Grammatical errors, random word insertions, pronoun errors, and incomplete sentences are an occasional consequence of this system due to software limitations, ambient noise, and hardware issues. Any formal questions or concerns about the content, text, or information contained within the body of this dictation should be directly addressed to the provider for clarification. Admission and Anticipated Discharge Date Admission Date: December 05, 2023 Supervising Physician Co-Signing Physician Notes Patient was seen and personally examined. Despite diuresis patient continues to have weeping lower extremity edema 3+. Suspect component of hypoventilation/right heart failure contributing to issues of atrial fibrillation and increasing lower extremity edema. Treatment as above Will repeat CMP assess hepatic enzymes and albumin level Echocardiogram Consider increasing spironolactone depending on renal function in a.m. Nocturnal oximetry this admission Subjective Patient resting in chair. legs elevated. Feeling "foggy" and "lightheaded" this afternoon. No visual disturbances. Good diuresis over the last 24 hours 2 L output, -1500 ml. No chest pain or dyspnea. No sense of palpitations or tachypalpitations. Review of Systems Review of Systems: All systems reviewed & are unremarkable except as noted in HPI & below Physical Exam Constitutional: + ill appearing and + morbidly obese; no acute distress Neck: + thick neck Respiratory: no respiratory distress, no labored breathing and no retractions Auscultation: + diminished lung sounds; no crackles and no rales Cardiovascular: Rate/Rhythm: + irregularly irregular Heart Sounds: normal S2; no murmur Vessels: no JVD Extremities: + edema (Lymphedema pattern, 2- 3+ edema b/l with erythema and seeping) Gastrointestinal (Abdomen): normal bowel sounds, soft, nontender, no hepatosplenomegaly Inspection/Auscultation: normal bowel sounds; abdomen not distended Percussion/Palpation: abdomen nontender, no guarding and abdomen not rigid Neurologic: PERRL, EOMI, accommodation nl, no face palsy, no dysarthria CN's II-XI intact bilaterally and moves all extremities; no focal motor deficits Results & Data Vital Signs (Past 12 Hours) Vital Signs Temp Pulse Pulse Resp BP BP Pulse Ox 12/22/23 14:46 109 H 12/22/23 14:34 36.5 C 77 18 118/62 97 12/22/23 11:52 36.7 C 88 19 106/64 97 12/22/23 09:48 12/22/23 07:06 36.6 C 88 18 107/70 96 O2 Del Method 12/22/23 14:46 12/22/23 14:34 Room Air 12/22/23 11:52 Room Air 12/22/23 09:48 Room Air 12/22/23 07:06 Room Air Laboratory Results Comprehensive Metabolic Panel 12/22/23 Range/Units 07:42 Sodium 134 L (136-145) mmol/L Potassium 4.7 (3.5-5.1) mmol/L Chloride 98 (98-107) mmol/L Carbon Dioxide 28 (21-32) mmol/L BUN 47 H (6-23) mg/dl Creatinine 1.62 H (0.6-1.2) mg/dl Glucose 103 H (70-99(Fasting)) mg/dl Calcium 9.1 (8.6-10.3) mg/dl Intake and Output 12/22/23 12/22/23 12/22/23 06:59 14:59 22:59 Intake Total 50 / 50 Output Total 2000 Balance -400 / -1461 49 Intake: IV 50 / 50 cefTRIAXone SODIUM 2,000 mg In 50 / 50 Dextrose 5 % Mini-B 50 ml @ 100 mls/hr IV Q24H [facility] Rx#: [id number] Output: Urine Amount (Catheter) 1999 Danielle/Indwelling 1999 # Bowel Movements Other: Weight 175.2 kg Weight Measurement Method Standing Scale Diagnostic Findings Telemetry reviewed: Persistent afib with rates ranging 100-110 Medications Administered Current Inpatient Medications Acetaminophen (Acetaminophen 500 Mg Tab) 1,000 mg PO Q8H PRN PRN Reason: Pain or Fever Stop: 01/04/24 14:19 Last Admin: 12/18/23 16:20 Dose: 1,000 mg Apixaban (Apixaban 5 Mg Tablet) 5 mg PO BID [facility] Stop: 01/04/24 20:59 Last Admin: 12/22/23 08:57 Dose: 5 mg Atorvastatin Calcium (Atorvastatin 40 Mg Tab) 40 mg PO DAILY [facility] Stop: 01/05/24 08:59 Last Admin: 12/22/23 08:57 Dose: 40 mg Diclofenac Sodium (Diclofenac Sod 1% Gel 100 Gm Tube) 4 gm EXT Q6H PRN; Protocol PRN Reason: knee pain Stop: 01/04/24 14:19 Last Admin: 12/20/23 19:58 Dose: 4 gm Digoxin (Digoxin 0.125 Mg Tab) 0.125 mg PO DAILY@1600 [facility] Stop: 01/18/24 15:59 Last Admin: 12/21/23 15:45 Dose: 0.125 mg Docusate Sodium (Docusate Sodium 100 Mg Cap) 100 mg PO BID [facility] Stop: 01/10/24 20:59 Last Admin: 12/22/23 08:57 Dose: 100 mg Ergocalciferol (Ergocalciferol 50,000 Units 1250 Mcg Cap) 50,000 units PO We@0900 [facility] Stop: 01/07/24 08:59 Last Admin: 12/22/23 08:57 Dose: 50,000 units Furosemide (Furosemide 40 Mg/4 Ml Vial) 40 mg IV TID [facility] Stop: 01/20/24 20:59 Last Admin: 12/22/23 14:35 Dose: 40 mg Gabapentin (Gabapentin 300 Mg Cap) 300 mg PO HS [facility] Stop: 01/04/24 20:59 Last Admin: 12/21/23 20:46 Dose: 300 mg Guaifenesin/Dextromethorphan (Guaifenesin/Dextrom Syrup 200mg/20mg 10ml Udc) 10 ml PO Q6H PRN PRN Reason: Cough Stop: 01/19/24 17:26 Hydroxyzine HCl (Hydroxyzine Hcl 25 Mg Tab) 25 mg PO Q6H PRN PRN Reason: Anxiety/Insomnia Stop: 01/15/24 16:00 Last Admin: 12/19/23 19:42 Dose: 25 mg Ceftriaxone Sodium 2,000 mg/ (Dextrose) 50 mls @ 100 mls/hr IV Q24H [facility]; Protocol Stop: 12/26/23 08:59 Last Infusion: 12/22/23 09:57 Dose: Infused Levothyroxine Sodium (Levothyroxine Sodium 100 Mcg Tablet) 100 mcg PO DAILYBB [facility] Stop: 01/05/24 06:29 Last Admin: 12/22/23 06:17 Dose: 100 mcg Lidocaine (Lidocaine 5% 1 Patch) 1 patch TD QAM [facility] Stop: 01/08/24 09:14 Last Admin: 12/22/23 08:57 Dose: 1 patch Magnesium Hydroxide (Magnesium Hydroxide Susp 30 Ml Udc) 30 ml PO Q6H PRN PRN Reason: Constipation Stop: 01/10/24 18:24 Metoprolol Succinate (Metoprolol Succ 50mg Ext Rel Tab) 100 mg PO BID [facility] Stop: 01/14/24 20:59 Last Admin: 12/22/23 08:57 Dose: 100 mg Miconazole Nitrate (Miconazole Nitrate Powder 85 Gm) 1 appln EXT BID [facility] Stop: 01/05/24 00:29 Last Admin: 12/22/23 08:58 Dose: 1 appln Miconazole Nitrate (Miconazole Nitrate 2% Cr 30 Gm Tube) 1 appln EXT BID [facility] Stop: 01/19/24 20:59 Last Admin: 12/22/23 08:57 Dose: 1 appln Miscellaneous (Remove Lidoderm Patch) 1 each N/A DAILY@2100 [facility] Stop: 01/08/24 20:59 Last Admin: 12/21/23 20:48 Dose: 1 each Oxycodone HCl (Oxycodone Hcl Ir 5 Mg Tab (Immediate Release)) 7.5 mg PO Q4H PRN PRN Reason: Moderate Pain (Scale 4, 5, 6) Stop: 12/23/23 11:58 Last Admin: 12/22/23 09:05 Dose: 7.5 mg Polyethylene Glycol (Polyethylene (Miralax) 17 Gm Pack) 17 gm PO DAILY PRN PRN Reason: Constipation Stop: 01/04/24 14:19 Last Admin: 12/16/23 08:58 Dose: 17 gm Potassium Chloride (Potassium Chloride Crtab 20 Meq Tabcr) 40 meq PO BID [facility] Stop: 01/16/24 20:59 Last Admin: 12/22/23 08:56 Dose: 40 meq Spironolactone (Spironolactone 25 Mg Tab) 25 mg PO DAILY [facility] Stop: 01/17/24 08:59 Last Admin: 12/22/23 08:57 Dose: 25 mg
[2023-12-22] MEDS ORDERED: guaiFENesin/CODEINE 100MG/10MG 5ML UDC PO PRN (16:19)
--- NOTE | 2023-12-22 16:21 | Hospitalist Progress Note ---
Date of Service December 22, 2023 Assessment & Plan (1) Atrial fibrillation with rapid ventricular response: (2) Elevated troponin: (3) COVID-19: (4) Hypoxia: (5) Abdominal pain: (6) Urolithiasis: (7) Generalized weakness: (8) Tachycardia-bradycardia syndrome: (9) Hypertension: (10) HLD (hyperlipidemia): (11) Hypothyroidism: (12) Morbid obesity with BMI of 60.0-69.9, adult: Plan Ms. Cox is a 63 year old woman with PMHx significant for paroxysmal atrial fibrillation anticoagulated on Eliquis, tachybradycardia syndrome refusing pacemaker, HTN, HLD, hypothyroidism, obesity, obstructive uropathy s/p L uretal stent placement on 11/08 admitted with R sided abdominal pain, FLETCHER and atrial fibrillation with RVR in the setting of a COVID infection and UTI. Patient's course complicated by ongoing atrial fibrillation. Patient is now on oral digoxin and still diuresing, though minimally net negative; however, renal function continues to downtrend at this point. Course complicated by worsening edema upon cessation of IV lasix as well as difficult to control RVR. #Acute on chronic heart failure with preserved ejection fraction Echo 2021- EF 65-70% Aggressive ongoing diuersis with lasix 40mg TID, held 12/20 Potassium supplementation Continue spironolactone 25mg daily and metoprolol 100mg XL BID Continue IV lasix 40mg TID Consult to Nephrology as diuresis limited 2/2 renal dysfunction -Further diuresis recommendations in order to optimize #Atrial fibrillation with rapid ventricular response Presented with R abd pain, found to be in a fib with RVR Home: sotalol 40mg BID with Eliquis for anticoagulation for PAF. Had not taken her AM dose of sotalol. On admission, P: 147, RR: 19, BP 111/71. K 3.8, Magnesium: 2.0, TSH: 5.9 T4 0.98 EKG on admission: A-fib RVR, rate 143 In ER received a total of 15mg of IV Lopressor. Heart rate improved from 140s down to 120s. Patient given her morning dose of sotalol in the ER. Dilt drip started to no avail. Cardiology was then consulted- appreciate recs. Recommended: -holding home sotalol in setting of FLETCHER, transitioned at first to PO metoprolol tartrate 25mg QID with diltiazem drip. Continued Eliquis 5mg BID for anticoagulation -deferring repeat echo Cardiology recommendations on going, -Transitioned to amiodarone drip from 12/09-12/12; discontinued PO amiodarone; rates remained elevated, loaded with digoxin 12/16. -Continue IV lasix 40mg TID -Continue spironolactone 25mg metoprolol 100mg XL BID -Continue on PO digoxin 125mcg daily #Elevated troponin *resolved Initial troponin 54. Downtrended to 41.3 EKG with noted atrial fibrillation with RVR Likely elevated secondary to demand ischemia from rapid A-fib, doubt ACS #Tachycardia-bradycardia syndrome *stable History of tachybrady syndrome. Follows with cardiology and EP. In past has refused pacemaker Monitor on telemetry #Hypertension Hold home losartan and HCTZ with current FLETCHER Monitor BPs Currently on metoprolol 100mg BID, spironolactone 25mg daily IV lasix 40mg TID after unsuccessful PO trial on 12/21 #Acute complicated UTI 2/2 e coli WBC elevated UA repeated and now with nitrites Continue Rocephin on 12/15, EOT tentatively 12/29 for 14 day regimen iso stents Urine Cx growing E coli- follow Cx to narrow abx -Continue IV abx until discussion with Urology regarding stents, urine muddy brown but improving -Holding on conversation as current cardiac status makes patient a tenuous candidate for sedation/removal, will reach out when heart status more stable Discussed with LYDIA Tucker with Urology: will keep hernandez and follow up OP #Gross Hematuria *improving #Acute on Chronic microcytic anemia *stable Pt with gross blood in urinary canister near bed previously Hgb in 9-10 range currently, was 11.4 on 11/08, appears her baseline is ~11 Iron level 44, ferritin 313 Urology consult- appreciate recs -per cardiology and urology, continue with anticoagulation at this time - 12/08- hernandez in, hand irrigate for clots retention, suprapubic pain Urine appears still muddy brown, but likely 2/2 resolving infection Discussed with LYDIA Tucker with Urology: will keep hernandez and follow up OP #COVID-19 *resolved #Acute hypoxic respiratory failure, resolved Pt with sore throat, cough, congestion that started 3-4 days prior to arrival In ER 89% on room air up to 95% on 3L nasal cannula COVID-19 positive on 12/04/22, enhanced precautions completed, completed dex course Chest xray with no acute changes Further supportive treatment as needed Stable, currently on RA #FLETCHER (acute kidney injury) *stable Likely 2/2 a fib RVR and infection Cr: 1.6 on admission, was 0.94 the day before Received gentle diuresis with NSS @70 for 2 bags. Nephrology consult placed on 12/07 -continue to trend, no further IVF required -Reconsulted given need for IV diuresis, Monitor fluid balance Avoid contrast/nephrotoxic meds Monitor renal function, continue to trend CMP IV lasix 40mg TID #obstructive uropathy s/p stent placement 10/2023 Patient with reported right-sided abdominal pain that started morning of admission. 12/04/2023 (day before admission), CT abdomen pelvis noted LEFT-sided ureteral stent in place, bilateral intrarenal stones, proximal left ureteral stone, diverticulosis with no signs of diverticulitis. No acute appendicitis or bowel obstruction. No evidence of visceral or intra-abdominal injury. No acute fracture. Pain control Urology consult placed for hematuria (see above) but appreciate recs for this as well -pt now requesting to have stents removed but needs HR under control -Plan to discuss with urology once A Fib is controlled: plan for OP follow up, keep hernandez in place #Generalized weakness Ambulates with cane at baseline. Increased generalized weakness over the past several days. Likely secondary to underlying infection with COVID-19 12/04/2023: CT head: No acute intracranial abnormality Fall precautions PT/OT eval-recommending home with s/o support and HH services -Patient willing to consider HH services or rehab if covered, will discuss with CM #HLD (hyperlipidemia) Continue atorvastatin #Hypothyroidism Continue levothyroxine #Morbid obesity with BMI of 60.0-69.9, adult BMI: 68.3 Encourage weight loss Pt ordered bariatric bed for better comfort #Constipation Docusate sodium 100mg BID PRN Miralax ordered PRN milk of magnesia Diet: HH DVT Prophylaxis: On Eliquis CODE STATUS: Full code Dispo: PT/OT now with rehab recommendations, ongoing IV diuresis and volume management Admission and Anticipated Discharge Date Admission Date: December 05, 2023 Subjective Discussion had with patient and s/o--- worried over rapid legs swelling, more lifestyle modifications discussed Patient states she feels initially weak when standing, but mostly related to sitting in bedside chair with legs straight Physical Exam Constitutional: WD/WN, vitals as above Respiratory: difficult 2/2 habitus Cardiovascular: difficult 2/2 habitus Gastrointestinal (Abdomen): urine much more clear on exam today Results & Data Results & Data Vital Signs (Past 12 Hours) Vital Signs Temp Pulse Pulse Resp BP BP Pulse Ox 12/22/23 14:46 109 H 12/22/23 14:34 36.5 C 77 18 118/62 97 12/22/23 11:52 36.7 C 88 19 106/64 97 12/22/23 09:48 12/22/23 07:06 36.6 C 88 18 107/70 96 O2 Del Method 12/22/23 14:46 12/22/23 14:34 Room Air 12/22/23 11:52 Room Air 12/22/23 09:48 Room Air 12/22/23 07:06 Room Air
[2023-12-22] MEDS: guaiFENesin/CODEINE 100MG/10MG 5ML UDC PO STA (17:29)
[2023-12-23] MEDS: HYDROmorphone INJ 0.5 MG/0.5 ML SYR IV STA (07:59)
[2023-12-23 08:05] LABS: Hematocrit (blood only) 26.3 % (37.0-47.0); Hemoglobin 8.4 g/dl (12.0-16.0); Mean Corpuscular Hemoglobin 27.7 pg (25.0-34.0); Mean Corpuscular Hgb Conc 31.9 g/dL (32.0-36.0); Mean Corpuscular Volume 86.8 fL (80.0-100.0); Platelet Count 222 K/uL (130-400); RDW Coefficient of Variation 16.6 % (11.5-14.5); RDW Standard Deviation 51.7 fL (36.4-46.3); Red Blood Count 3.03 M/uL (4.20-5.40); White Blood Count 7.65 K/ul (4.8-10.8)
[2023-12-23 08:31] LABS: Albumin Globulin Ratio 1.3 (0.9-2); Albumin Level 3.1 gm/dl (3.4-5.0); BUN Creatinine Ratio 32.2 (10-20); Bilirubin,Total 0.5 mg/dl (0.2-1.0); Calcium 8.7 mg/dl (8.6-10.3); Creatinine Clr Calc Pharmacy 62.7 ml/min; Est GFR (African American) 43.2 ml/min; Est GFR (Non-African American) 37.3 ml/min; Globulin 2.4 gm/dl (2.5-4.0); Magnesium 1.9 mg/dl (1.7-2.4); Phosphorus 3.8 mg/dl (2.5-4.9); Potassium 4.2 mmol/L (3.5-5.1); Total Protein 5.5 gm/dl (6.0-8.3)
--- NOTE | 2023-12-23 08:53 | Cardiology Progress Note ---
Date of Service December 23, 2023 Assessment & Plan (1) Atrial fibrillation with rapid ventricular response: Plan: Hospital day 18. 63-year-old female with body mass index of 68 kg/m, chronic lymphedema, and paroxysmal atrial fibrillation with borderline tachycardia-bradycardia syndrome. She had previously been maintained in sinus rhythm on sotalol 40 mg twice daily which was held on presentation due to acute kidney injury. She presented with upper respiratory complaint symptoms and findings of SARS-CoV-2 infection. She developed Atrial fibrillation with rapid ventricular response along with acute kidney injury prompting discontinuation of low-dose sotalol. Initially IV diltiazem utilized for rate control, then a trial of amiodarone had been initiated, but patient failed to convert to NSR Metoprolol titrated to 100 mg BID and digoxin added with IV bolus/load. HR's have improved and now remain around 100-130 bpm Continue Eliquis for stroke prophylaxis. Danielle catheter remains in place. Gross hematuria improved. (2) Acute on chronic heart failure with preserved ejection fraction: Plan: Significant Lower extremity edema noted. Continue IV Lasix 40 mg TID Decent outputs overnight Creatinine increased from 1.3 to 1.6 >>1.4. Mild hyponatremia-- likely dilutional Single dose of 2.5 mg of metolazone to be given today prior to 2pm Lasix dose +40 KCL x1 with 2pm Lasix (this is in addition to her already scheduled KCL replacement) Monitor BMP this evening Continue spironolactone 1500 mL fld restriction-- NO OUTSIDE SODA. 2g sodium restriction. daily standing weights. Strict I&O. CHF EDU Recommend workup for hypoventilation syndrome. (3) Gross hematuria: Plan: Improved. Recent left ureter stent 11/08/2023. Outpatient follow-up recommended by urology with plans for repeat cystoscopy in the future. Plan Case discussed with Dr. Crow Bal spent a total of 40 minutes on the date of service in preparation, delivery, and documentation of the care provided to this patient, excluding any time spent in the performance of separately billed services. FLYNN Ortega Department of Cardiology, [facility] This chart was completed in part utilizing Speech Voice Recognition Software. G rammatical errors, random word insertions, pronoun errors, and incomplete sentences are an occasional consequence of this system due to software limitations, ambient noise, and hardware issues. Any formal questions or concerns about the content, text, or information contained within the body of this dictation should be directly addressed to the provider for clarification. [place]. Admission and Anticipated Discharge Date Admission Date: December 05, 2023 Supervising Physician Co-Signing Physician Notes Assessment and plan as well outlined above. More aggressive diuresis warranted. Needs further fluid restriction Appreciate nephrology input Subjective Upon entrance into the room patient resting in the chair. Fiance at bedside. No acute concerns. Tried to sleep in the bed last night but had back/hip pain per the patient. Notable dyspnea when she ambulates to the restroom. Significant lower extremity edema. No chest pain. Denies lightheadedness or palpitations Tele: AFIB 100-130s overnight/this am I&O: -1.6L over 24 hrs, total 10L. Weight: 179.5 kg >> 175 kg (? Accuracy) Echo: Preliminary read of echo showed preserved LV systolic function without wall motion abnormalities. Moderate LVH. Aortic sclerosis without stenosis. Review of Systems Review of Systems: All systems reviewed & are unremarkable except as noted in HPI & below Physical Exam Constitutional: + ill appearing and + morbidly obese; no acute distress Neck: + thick neck Respiratory: no respiratory distress, no labored breathing and no retractions Auscultation: + diminished lung sounds; no crackles and no rales Cardiovascular: Rate/Rhythm: + irregularly irregular Heart Sounds: normal S2; no murmur Vessels: no JVD Extremities: + edema (Lymphedema pattern, 2- 3+ edema b/l with erythema and seeping) Gastrointestinal (Abdomen): normal bowel sounds, soft, nontender, no hepatosplenomegaly Inspection/Auscultation: normal bowel sounds; abdomen not distended Percussion/Palpation: abdomen nontender, no guarding and abdomen not rigid Neurologic: PERRL, EOMI, accommodation nl, no face palsy, no dysarthria CN's II-XI intact bilaterally and moves all extremities; no focal motor deficits Psychiatric: Orientation: alert and oriented x 3 Results & Data Vital Signs (Past 12 Hours) Vital Signs Temp Pulse Resp BP Pulse Ox O2 Del Method 12/23/23 08:03 37.2 C 99 H 19 112/64 95 Room Air 12/23/23 03:13 37 C 97 H 20 127/89 95 Room Air 12/22/23 23:15 36.8 C 88 20 138/70 96 Room Air Laboratory Results Cardiac Enzymes 12/23/23 Range/Units 07:11 AST 12 L (13-39) U/L CBC 12/23/23 Range/Units 07:11 WBC 7.65 (4.8-10.8) K/ul RBC 3.03 L (4.20-5.40) M/uL Hgb 8.4 L (12.0-16.0) g/dl Hct 26.3 L (37.0-47.0) % Plt Count 222 (130-400) K/uL Comprehensive Metabolic Panel 12/23/23 Range/Units 07:11 Sodium 135 L (136-145) mmol/L Potassium 4.2 (3.5-5.1) mmol/L Chloride 99 (98-107) mmol/L Carbon Dioxide 27 (21-32) mmol/L BUN 48 H (6-23) mg/dl Creatinine 1.49 H (0.6-1.2) mg/dl Glucose 96 (70-99(Fasting)) mg/dl Calcium 8.7 (8.6-10.3) mg/dl AST 12 L (13-39) U/L ALT 14 (7-52) U/L Alkaline Phosphatase 51 (34-104) U/L Total Protein 5.5 L (6.0-8.3) gm/dl Albumin 3.1 L (3.4-5.0) gm/dl Intake and Output 12/22/23 12/23/23 12/23/23 22:59 06:59 14:59 Intake Total 675 / 1075 350 / 1075 Output Total 476 / 1777 1300 / 1777 Balance 199 / -702 -950 / -702 Intake: Oral 675 / 1025 350 / 1025 Output: Urine Amount (Catheter) 475 / 1775 1300 / 1775 Danielle/Indwelling 475 / 1775 1300 / 1775 # Bowel Movements 1 / 2 Other: Weight 175 kg
--- NOTE | 2023-12-23 11:12 | Nephrology Progress Note ---
Date of Service December 23, 2023 Assessment & Plan Admission and Anticipated Discharge Date Admission Date: December 05, 2023 Subjective S--C/o massive edema and Discomfort. made 1700 ml urine with current diuretics dose. Exam: awake and alert. Chest b/l clear. CVS--Distant Sounds. Abd--obese+++ Ext--4+ edema with skin changesb/l. A/P: Massive edema ( hard to assess fluid status with her wt). Some worsening of Creat . Rec: 1 Double lasix to 80 iv q8h and metolazone 5 bid. 2 Creat may or may not rise --hard to tell. In any case we still need to diurese Results & Data Vital Signs (Past 12 Hours) Vital Signs Temp Pulse Resp BP Pulse Ox O2 Del Method 12/23/23 08:03 37.2 C 99 H 19 112/64 95 Room Air 12/23/23 03:13 37 C 97 H 20 127/89 95 Room Air 12/22/23 23:15 36.8 C 88 20 138/70 96 Room Air PG Care Time/CCT Total # of Minutes Spent Total Time Spent with Patient: Total time spent is greater than 50% in coordination of care (as documented) at patient's floor/unit and/or counseling patient: Coding Level of Care Code 89760 SUB INP/OBS CARE 2/35MIN
[2023-12-23] MEDS ORDERED: metOLazone 2.5 MG TABLET PO ONE (13:30)
[2023-12-23] MEDS: FUROSEMIDE 40 MG/4 ML VIAL IV SCH (13:57)
[2023-12-23] MEDS: metOLazone 5 MG TABLET PO SCH (13:57)
[2023-12-23] MEDS: oxyCODONE/APAP 7.5/325MG TAB PO PRN (14:24)
[2023-12-23] MEDS: POTASSIUM CHLORIDE CRTAB 20 MEQ TABCR PO ONE (14:27)
--- NOTE | 2023-12-23 16:55 | Hospitalist Progress Note ---
Date of Service December 23, 2023 Assessment & Plan (1) Atrial fibrillation with rapid ventricular response: (2) Elevated troponin: (3) COVID-19: (4) Hypoxia: (5) Abdominal pain: (6) Urolithiasis: (7) Generalized weakness: (8) Tachycardia-bradycardia syndrome: (9) Hypertension: (10) HLD (hyperlipidemia): (11) Hypothyroidism: (12) Morbid obesity with BMI of 60.0-69.9, adult: Plan Ms. Cox is a 63 year old woman with PMHx significant for paroxysmal atrial fibrillation anticoagulated on Eliquis, tachybradycardia syndrome refusing pacemaker, HTN, HLD, hypothyroidism, obesity, obstructive uropathy s/p L uretal stent placement on 11/08 admitted with R sided abdominal pain, FLETCHER and atrial fibrillation with RVR in the setting of a COVID infection and UTI. Patient's course complicated by ongoing atrial fibrillation. Patient is now on oral digoxin and still diuresing, though minimally net negative; however, renal function initially continued to downtrend. Course complicated by worsening edema upon cessation of IV lasix as well as difficult to control RVR. Patient has been rate controlled on digoxin; however, renal function seemed to decline prompting transition to PO regimen. This transition was unsuccessful and met with notable bilateral edema that was painful and profound. Nephrology consulted to aid in further diuresis being mindful of renal function. #Acute on chronic heart failure with preserved ejection fraction Echo 2021- EF 65-70% Aggressive ongoing diuersis with lasix 40mg TID, held 12/20 Potassium supplementation Continue spironolactone 25mg daily and metoprolol 100mg XL BID Increase IV lasix 80mg TID Consult to Nephrology as diuresis limited 2/2 renal dysfunction -Further diuresis recommendations in order to optimize -Increase lasix as above, add Metolazone 5mg BID -Trend Cr, continue diuresis despite trend up/down FR to 1.5L #Atrial fibrillation with rapid ventricular response *improved Presented with R abd pain, found to be in a fib with RVR Home: sotalol 40mg BID with Eliquis for anticoagulation for PAF. Had not taken her AM dose of sotalol. On admission, P: 147, RR: 19, BP 111/71. K 3.8, Magnesium: 2.0, TSH: 5.9 T4 0.98 EKG on admission: A-fib RVR, rate 143 In ER received a total of 15mg of IV Lopressor. Heart rate improved from 140s down to 120s. Patient given her morning dose of sotalol in the ER. Dilt drip started to no avail. Cardiology was then consulted- appreciate recs. Recommended: -holding home sotalol in setting of FLETCHER, transitioned at first to PO metoprolol tartrate 25mg QID with diltiazem drip. Continued Eliquis 5mg BID for anticoagulation -deferring repeat echo Cardiology recommendations on going, -Transitioned to amiodarone drip from 12/09-12/12; discontinued PO amiodarone; rates remained elevated, loaded with digoxin 12/16. -Continue IV lasix 40mg TID -Continue spironolactone 25mg metoprolol 100mg XL BID -Continue on PO digoxin 125mcg daily #FLETCHER (acute kidney injury) *stable Likely 2/2 a fib RVR and infection Cr: 1.6 on admission, was 0.94 the day before Received gentle diuresis with NSS @70 for 2 bags. Nephrology consult placed on 12/07 -continue to trend, no further IVF required -Reconsulted given need for IV diuresis, Monitor fluid balance Avoid contrast/nephrotoxic meds Monitor renal function, continue to trend CMP Nephrology reconsulted 12/22 -Increase lasix 80mg TID -Metolazone 5mg BID #Elevated troponin *resolved Initial troponin 54. Downtrended to 41.3 EKG with noted atrial fibrillation with RVR Likely elevated secondary to demand ischemia from rapid A-fib, doubt ACS #Tachycardia-bradycardia syndrome *stable History of tachybrady syndrome. Follows with cardiology and EP. In past has refused pacemaker Monitor on telemetry #Hypertension Hold home losartan and HCTZ with current FLETCHER Monitor BPs Currently on metoprolol 100mg BID, spironolactone 25mg daily IV lasix 40mg TID after unsuccessful PO trial on 12/21 #Acute complicated UTI 2/2 e coli WBC elevated UA repeated and now with nitrites Continue Rocephin on 12/15, EOT tentatively 12/29 for 14 day regimen iso stents Urine Cx growing E coli- follow Cx to narrow abx -Continue IV abx until discussion with Urology regarding stents, urine muddy brown but improving -Holding on conversation as current cardiac status makes patient a tenuous candidate for sedation/removal, will reach out when heart status more stable Discussed with LYDIA Tucker with Urology: will keep hernandez and follow up OP #Gross Hematuria *improving #Acute on Chronic microcytic anemia *stable Pt with gross blood in urinary canister near bed previously Hgb in 9-10 range currently, was 11.4 on 11/08, appears her baseline is ~11 Iron level 44, ferritin 313 Urology consult- appreciate recs -per cardiology and urology, continue with anticoagulation at this time - 12/08- hernandez in, hand irrigate for clots retention, suprapubic pain Urine appears still muddy brown, but likely 2/2 resolving infection Discussed with LYDIA Tucker with Urology: will keep hernandez and follow up OP #COVID-19 *resolved #Acute hypoxic respiratory failure, resolved Pt with sore throat, cough, congestion that started 3-4 days prior to arrival In ER 89% on room air up to 95% on 3L nasal cannula COVID-19 positive on 12/04/22, enhanced precautions completed, completed dex course Chest xray with no acute changes Further supportive treatment as needed Stable, currently on RA #obstructive uropathy s/p stent placement 10/2023 Patient with reported right-sided abdominal pain that started morning of admission. 12/04/2023 (day before admission), CT abdomen pelvis noted LEFT-sided ureteral stent in place, bilateral intrarenal stones, proximal left ureteral stone, diverticulosis with no signs of diverticulitis. No acute appendicitis or bowel obstruction. No evidence of visceral or intra-abdominal injury. No acute fracture. Pain control Urology consult placed for hematuria (see above) but appreciate recs for this as well -pt now requesting to have stents removed but needs HR under control -Plan to discuss with urology once A Fib is controlled: plan for OP follow up, keep hernandez in place #Generalized weakness Ambulates with cane at baseline. Increased generalized weakness over the past several days. Likely secondary to underlying infection with COVID-19 12/04/2023: CT head: No acute intracranial abnormality Fall precautions PT/OT eval-recommending home with s/o support and HH services -Patient willing to consider HH services or rehab if covered, will discuss with CM #HLD (hyperlipidemia) Continue atorvastatin #Hypothyroidism Continue levothyroxine #Morbid obesity with BMI of 60.0-69.9, adult BMI: 68.3 Encourage weight loss Pt ordered bariatric bed for better comfort #Constipation Docusate sodium 100mg BID PRN Miralax ordered PRN milk of magnesia Diet: HH DVT Prophylaxis: On Eliquis CODE STATUS: Full code Dispo: PT/OT now with rehab recommendations, ongoing IV diuresis and volume m anagement Admission and Anticipated Discharge Date Admission Date: December 05, 2023 Subjective States she feels no better, no worse Trying to work with PT as much as able States that she is not really sure she can give up things like sprite, juice, food Physical Exam Constitutional: sitting in bedside recliner, minimal movement, legs up Respiratory: difficult to appreciate 2/2 habitus, does not appear to have wheezing or resp distress Cardiovascular: difficult to appreciate 2/2 habitus, does not appear to have wheezing or resp distress Skin: extremely notable edema bilaterally, minimally improved, extends from toes to thighs Results & Data Results & Data Vital Signs (Past 12 Hours) Vital Signs Temp Pulse Pulse Resp BP BP Pulse Ox 12/23/23 16:46 84 12/23/23 15:22 36.7 C 84 18 92/62 L 96 12/23/23 11:06 36.6 C 89 18 113/66 93 12/23/23 08:03 37.2 C 99 H 19 112/64 95 O2 Del Method 12/23/23 16:46 12/23/23 15:22 Room Air 12/23/23 11:06 Room Air 12/23/23 08:03 Room Air Laboratory Results Short CBC 12/23/23 Range/Units 07:11 WBC 7.65 (4.8-10.8) K/ul Hgb 8.4 L (12.0-16.0) g/dl Hct 26.3 L (37.0-47.0) % Plt Count 222 (130-400) K/uL BMP 12/23/23 07:11 Sodium 135 L Potassium 4.2 Chloride 99 Carbon Dioxide 27 BUN 48 H Creatinine 1.49 H Glucose 96 Calcium 8.7 Liver Function 12/23/23 Range/Units 07:11 Total Bilirubin 0.5 (0.2-1.0) mg/dl AST 12 L (13-39) U/L ALT 14 (7-52) U/L Alkaline Phosphatase 51 (34-104) U/L Albumin 3.1 L (3.4-5.0) gm/dl Medications Administered Home Medications Medication Instructions Recorded Confirmed Last Taken apixaban 5 mg tablet (Eliquis) 5 mg PO BID #60 tabs 10/23/21 12/05/23 12/04/23 levothyroxine 100 mcg tablet 100 mcg PO QAM 10/23/21 12/05/23 12/04/23 (Euthyrox) alendronate 70 mg tablet 70 mg PO WK 05/15/22 12/05/23 12/02/23 hydrochlorothiazide 25 mg tablet 25 mg PO QAM 05/16/22 12/05/23 12/17/22 hydroxyzine HCl 25 mg tablet 25 - 50 mg (1 - 2 x 25 mg) PO Q6H 07/10/22 12/05/23 Unknown PRN itching #20 tabs sotalol 80 mg tablet 40 mg PO BID17 11/08/23 12/05/23 12/04/23 valacyclovir 1 gram tablet See Rx Instructions .Route 11/08/23 12/05/23 Unknown (Valtrex) .COMPLEX PRN Cold Sores diclofenac sodium 1 % topical gel 4 g EXT Q6H PRN knee pain #100 11/11/23 12/05/23 Unknown (Voltaren Arthritis Pain) grams gabapentin 300 mg capsule 300 mg PO HS #30 caps 11/11/23 12/05/23 Unknown miconazole nitrate 2 % topical 1 applic EXT BID PRN fungal 11/11/23 12/05/23 Unknown powder (Desenex) infection #85 grams ergocalciferol (vitamin D2) 1,250 50,000 unit PO .weekly 6 weeks #6 11/13/23 12/05/23 12/01/23 mcg (50,000 unit) capsule (Vitamin caps D2) atorvastatin 40 mg tablet 40 mg PO DAILY 12/05/23 12/05/23 12/04/23 benzonatate 100 mg capsule 100 mg PO TID PRN cough #20 caps 12/05/23 12/05/23 Unknown losartan 50 mg tablet 50 mg PO DAILY 12/05/23 12/05/23 12/04/23 nirmatrelvir 300 mg (150 mg See Rx Instructions PO .COMPLEX 12/05/23 12/05/23 Unknown x2)-ritonavir 100 mg tablet,dose #30 tabs pack (Paxlovid) Active Medications Generic Name Dose Route Start Last Admin Trade Name Freq PRN Reason Stop Dose Admin Acetaminophen 1,000 mg 12/09/23 11:59 12/23/23 08:00 Acetaminophen 500 Mg Tab PO 01/04/24 14:19 1,000 mg Q8H PRN Administration Pain or Fever Apixaban 5 mg 12/05/23 21:00 12/23/23 08:05 Apixaban 5 Mg Tablet PO 01/04/24 20:59 5 mg BID BALJEET Administration Atorvastatin Calcium 40 mg 12/06/23 09:00 12/23/23 08:01 Atorvastatin 40 Mg Tab PO 01/05/24 08:59 40 mg DAILY BALJEET Administration Diclofenac Sodium 4 gm 12/05/23 14:20 12/20/23 19:58 Diclofenac Sod 1% Gel 100 Gm Tube EXT 01/04/24 14:19 4 gm Q6H PRN Administration knee pain Protocol Digoxin 0.125 mg 12/19/23 16:00 12/23/23 16:46 Digoxin 0.125 Mg Tab PO 01/18/24 15:59 0.125 mg DAILY@1600 BALJEET Administration Docusate Sodium 100 mg 12/11/23 21:00 12/23/23 08:00 Docusate Sodium 100 Mg Cap PO 01/10/24 20:59 100 mg BID BALJEET Administration Ergocalciferol 50,000 units 12/08/23 09:00 12/22/23 08:57 Ergocalciferol 50,000 Units 1250 Mcg Cap PO 01/07/24 08:59 50,000 units We@0900 BALJEET Administration Furosemide 80 mg 12/23/23 12:00 12/23/23 13:57 Furosemide 40 Mg/4 Ml Vial IV 01/22/24 11:59 80 mg TIDM BALJEET Administration Gabapentin 300 mg 12/05/23 21:00 12/22/23 21:55 Gabapentin 300 Mg Cap PO 01/04/24 20:59 300 mg HS BALJEET Administration Hydroxyzine HCl 25 mg 12/16/23 16:01 12/23/23 08:01 Hydroxyzine Hcl 25 Mg Tab PO 01/15/24 16:00 25 mg Q6H PRN Administration Anxiety/Insomnia Ceftriaxone Sodium 2,000 mg/ 50 mls @ 100 mls/hr 12/16/23 09:00 12/23/23 12:52 Dextrose IV 12/26/23 08:59 Infused Q24H BALJEET Infusion Protocol Levothyroxine Sodium 100 mcg 12/06/23 06:30 12/23/23 06:24 Levothyroxine Sodium 100 Mcg Tablet PO 01/05/24 06:29 100 mcg DAILYBB BALJEET Administration Lidocaine 1 patch 12/09/23 09:15 12/23/23 08:04 Lidocaine 5% 1 Patch TD 01/08/24 09:14 1 patch QAM BALJEET Administration Metolazone 5 mg 12/23/23 13:30 12/23/23 13:57 Metolazone 5 Mg Tablet PO 01/22/24 13:29 5 mg BID@0730,1330 BALJEET Administration Metoprolol Succinate 100 mg 12/15/23 21:00 12/23/23 08:03 Metoprolol Succ 50mg Ext Rel Tab PO 01/14/24 20:59 100 mg BID BALJEET Administration Miconazole Nitrate 1 appln 12/06/23 00:30 12/23/23 08:05 Miconazole Nitrate Powder 85 Gm EXT 01/05/24 00:29 1 appln BID BALJEET Administration Miconazole Nitrate 1 appln 12/20/23 21:00 12/23/23 08:05 Miconazole Nitrate 2% Cr 30 Gm Tube EXT 01/19/24 20:59 1 appln BID BALJEET Administration Miscellaneous 1 each 12/09/23 21:00 12/22/23 21:57 Remove Lidoderm Patch N/A 01/08/24 20:59 1 each DAILY@2100 BALJEET Administration Oxycodone/Acetaminophen 1 tab 12/23/23 13:12 12/23/23 14:24 Oxycodone/Apap 7.5/325mg Tab PO 01/06/24 13:11 1 tab Q4H PRN Administration Pain Polyethylene Glycol 17 gm 12/05/23 14:20 12/16/23 08:58 Polyethylene (Miralax) 17 Gm Pack PO 01/04/24 14:19 17 gm DAILY PRN Administration Constipation Potassium Chloride 40 meq 12/17/23 21:00 12/23/23 07:59 Potassium Chloride Crtab 20 Meq Tabcr PO 01/16/24 20:59 40 meq BID BALJEET Administration Spironolactone 25 mg 12/18/23 09:00 12/23/23 08:01 Spironolactone 25 Mg Tab PO 01/17/24 08:59 25 mg DAILY BALJEET Administration
[2023-12-23 18:50] LABS: BUN Creatinine Ratio 26.7 (10-20); Creatinine Clr Calc Pharmacy 51.9 ml/min; Est GFR (African American) 34.4 ml/min; Est GFR (Non-African American) 29.6 ml/min; Potassium 4.5 mmol/L (3.5-5.1)
--- NOTE | 2023-12-24 07:32 | Hospitalist Progress Note ---
Date of Service December 24, 2023 Assessment & Plan (1) Atrial fibrillation with rapid ventricular response: (2) Elevated troponin: (3) COVID-19: (4) Hypoxia: (5) Abdominal pain: (6) Urolithiasis: (7) Generalized weakness: (8) Tachycardia-bradycardia syndrome: (9) Hypertension: (10) HLD (hyperlipidemia): (11) Hypothyroidism: (12) Morbid obesity with BMI of 60.0-69.9, adult: Plan Ms. Cox is a 63 year old woman with PMHx significant for paroxysmal atrial fibrillation anticoagulated on Eliquis, tachybradycardia syndrome refusing pacemaker, HTN, HLD, hypothyroidism, obesity, obstructive uropathy s/p L uretal stent placement on 11/08 admitted with R sided abdominal pain, FLETCHER and atrial fibrillation with RVR in the setting of a COVID infection and UTI. Patient's course complicated by ongoing atrial fibrillation. Patient is now on oral digoxin and still diuresing, though minimally net negative; however, renal function initially continued to downtrend. Course complicated by worsening edema upon cessation of IV lasix as well as difficult to control RVR. Patient has been rate controlled on digoxin; however, renal function seemed to decline prompting transition to PO regimen. This transition was unsuccessful and met with notable bilateral edema that was painful and profound. Nephrology consulted to aid in further diuresis being mindful of renal function. #Acute on chronic heart failure with preserved ejection fraction Echo 2021- EF 65-70% Aggressive ongoing diuersis with lasix 40mg TID, held 12/20 Potassium supplementation Discontinue spironolactone 25mg daily Continue metoprolol 100mg XL BID Discontinued IV lasix 80mg TID-->transitioned to Bumex 4mg q8h Consult to Nephrology as diuresis limited 2/2 renal dysfunction -Further diuresis recommendations in order to optimize -Stop lasix, add Bumex 4mg q8h -Continue Metolazone 5mg BID -Trend Cr, continue diuresis despite trend up/down FR to 1.5L #Atrial fibrillation with rapid ventricular response *improved Presented with R abd pain, found to be in a fib with RVR Home: sotalol 40mg BID with Eliquis for anticoagulation for PAF. Had not taken her AM dose of sotalol. On admission, P: 147, RR: 19, BP 111/71. K 3.8, Magnesium: 2.0, TSH: 5.9 T4 0.98 EKG on admission: A-fib RVR, rate 143 In ER received a total of 15mg of IV Lopressor. Heart rate improved from 140s down to 120s. Patient given her morning dose of sotalol in the ER. Dilt drip started to no avail. Cardiology was then consulted- appreciate recs. Recommended: -holding home sotalol in setting of FLETCHER, transitioned at first to PO metoprolol tartrate 25mg QID with diltiazem drip. Continued Eliquis 5mg BID for anticoagulation -deferring repeat echo Cardiology recommendations on going, -Transitioned to amiodarone drip from 12/09-12/12; discontinued PO amiodarone ; rates remained elevated, loaded with digoxin 12/16. -Stop IV lasix 40mg TID--Bumex 4mg IV q8h -Discontinue spironolactone 25mg per nephrology -Continue metoprolol 100mg XL BID -Continue on PO digoxin 125mcg daily #FLETCHER (acute kidney injury) *stable Likely 2/2 a fib RVR and infection Cr: 1.6 on admission, was 0.94 the day before Received gentle diuresis with NSS @70 for 2 bags. Nephrology consult placed on 12/07 -continue to trend, no further IVF required -Reconsulted given need for IV diuresis, Monitor fluid balance Avoid contrast/nephrotoxic meds Monitor renal function, continue to trend CMP Nephrology reconsulted 12/22 -Bumex 4mg q8h -Metolazone 5mg BID #Elevated troponin *resolved Initial troponin 54. Downtrended to 41.3 EKG with noted atrial fibrillation with RVR Likely elevated secondary to demand ischemia from rapid A-fib, doubt ACS #Tachycardia-bradycardia syndrome *stable History of tachybrady syndrome. Follows with cardiology and EP. In past has refused pacemaker Monitor on telemetry #Hypertension Hold home losartan and HCTZ with current FLETCHER Monitor BPs Currently on metoprolol 100mg BID Discontinue spironolactone 25mg daily #Acute complicated UTI 2/2 e coli WBC elevated UA repeated and now with nitrites Continue Rocephin on 12/15, EOT tentatively 12/29 for 14 day regimen iso stents Urine Cx growing E coli- follow Cx to narrow abx -Continue IV abx until discussion with Urology regarding stents, urine muddy brown but improving -Holding on conversation as current cardiac status makes patient a tenuous candidate for sedation/removal, will reach out when heart status more stable Discussed with LYDIA Tucker with Urology: will keep hernandez and follow up OP #Gross Hematuria *improving #Acute on Chronic microcytic anemia *stable Pt with gross blood in urinary canister near bed previously Hgb in 9-10 range currently, was 11.4 on 11/08, appears her baseline is ~11 Iron level 44, ferritin 313 Urology consult- appreciate recs -per cardiology and urology, continue with anticoagulation at this time - 12/08- hernandez in, hand irrigate for clots retention, suprapubic pain Urine appears still muddy brown, but likely 2/2 resolving infection Discussed with LYDIA Tucker with Urology: will keep hernandez and follow up OP #COVID-19 *resolved #Acute hypoxic respiratory failure, resolved Pt with sore throat, cough, congestion that started 3-4 days prior to arrival In ER 89% on room air up to 95% on 3L nasal cannula COVID-19 positive on 12/04/22, enhanced precautions completed, completed dex course Chest xray with no acute changes Further supportive treatment as needed Stable, currently on RA #obstructive uropathy s/p stent placement 10/2023 Patient with reported right-sided abdominal pain that started morning of admission. 12/04/2023 (day before admission), CT abdomen pelvis noted LEFT-sided ureteral stent in place, bilateral intrarenal stones, proximal left ureteral stone, diverticulosis with no signs of diverticulitis. No acute appendicitis or bowel obstruction. No evidence of visceral or intra-abdominal injury. No acute fracture. Pain control Urology consult placed for hematuria (see above) but appreciate recs for this as well -pt now requesting to have stents removed but needs HR under control -Plan to discuss with urology once A Fib is controlled: plan for OP follow up, keep hernandez in place #Generalized weakness Ambulates with cane at baseline. Increased generalized weakness over the past several days. Likely secondary to underlying infection with COVID-19 12/04/2023: CT head: No acute intracranial abnormality Fall precautions PT/OT eval-recommending home with s/o support and HH services -Patient willing to consider HH services or rehab if covered, will discuss with CM #HLD (hyperlipidemia) Continue atorvastatin #Hypothyroidism Continue levothyroxine #Morbid obesity with BMI of 60.0-69.9, adult BMI: 68.3 Encourage weight loss Pt ordered bariatric bed for better comfort #Constipation Docusate sodium 100mg BID PRN Miralax ordered PRN milk of magnesia Diet: HH DVT Prophylaxis: On Eliquis CODE STATUS: Full code Dispo: PT/OT now with rehab recommendations, ongoing IV diuresis and volume management Admission and Anticipated Discharge Date Admission Date: December 05, 2023 Subjective NAEO Denies chest pain, palpitations or other acute concerns Reports feeling worried about Rehab and the next steps, reassured patient Physical Exam Constitutional: WD/WN, vitals as above Respiratory: difficult to appreciate 2/2 habitus Cardiovascular: difficult to appreciate 2/2 habitus Musculoskeletal: diffuse pitting lower extremity edema, though severe marginally improved today with decrease lymph weeping on exam Results & Data Results & Data Vital Signs (Past 12 Hours) Vital Signs Temp Pulse Pulse Resp BP Pulse Ox O2 Del Method 12/24/23 03:18 36.8 C 99 H 18 120/70 97 Room Air 12/23/23 23:32 90 12/23/23 22:47 36.6 C 107 H 18 116/74 97 Room Air 12/23/23 19:45 36.5 C 92 H 18 113/70 95 Room Air Laboratory Results [facility] 12/23/23 12/24/23 18:10 06:42 Sodium 135 L 135 L Potassium 4.5 4.8 Chloride 98 99 Carbon Dioxide 27 29 BUN 48 H 48 H Creatinine 1.80 H D 1.87 H Glucose 131 H 97 Calcium 9.0 9.0 Liver Function 12/24/23 Range/Units 06:42 Total Bilirubin 0.5 (0.2-1.0) mg/dl AST 15 (13-39) U/L ALT 18 (7-52) U/L Alkaline Phosphatase 59 (34-104) U/L Albumin 3.3 L (3.4-5.0) gm/dl Medications Administered Home Medications Medication Instructions Recorded Confirmed Last Taken apixaban 5 mg tablet (Eliquis) 5 mg PO BID #60 tabs 10/23/21 12/05/23 12/04/23 levothyroxine 100 mcg tablet 100 mcg PO QAM 10/23/21 12/05/23 12/04/23 (Euthyrox) alendronate 70 mg tablet 70 mg PO WK 05/15/22 12/05/23 12/02/23 hydrochlorothiazide 25 mg tablet 25 mg PO QAM 05/16/22 12/05/23 12/17/22 hydroxyzine HCl 25 mg tablet 25 - 50 mg (1 - 2 x 25 mg) PO Q6H 07/10/22 12/05/23 Unknown PRN itching #20 tabs sotalol 80 mg tablet 40 mg PO BID17 11/08/23 12/05/23 12/04/23 valacyclovir 1 gram tablet See Rx Instructions .Route 11/08/23 12/05/23 Unknown (Valtrex) .COMPLEX PRN Cold Sores diclofenac sodium 1 % topical gel 4 g EXT Q6H PRN knee pain #100 11/11/23 12/05/23 Unknown (Voltaren Arthritis Pain) grams gabapentin 300 mg capsule 300 mg PO HS #30 caps 11/11/23 12/05/23 Unknown miconazole nitrate 2 % topical 1 applic EXT BID PRN fungal 11/11/23 12/05/23 Unknown powder (Desenex) infection #85 grams ergocalciferol (vitamin D2) 1,250 50,000 unit PO .weekly 6 weeks #6 11/13/23 12/05/23 12/01/23 mcg (50,000 unit) capsule (Vitamin caps D2) atorvastatin 40 mg tablet 40 mg PO DAILY 12/05/23 12/05/23 12/04/23 benzonatate 100 mg capsule 100 mg PO TID PRN cough #20 caps 12/05/23 12/05/23 Unknown losartan 50 mg tablet 50 mg PO DAILY 12/05/23 12/05/23 12/04/23 nirmatrelvir 300 mg (150 mg See Rx Instructions PO .COMPLEX 12/05/23 12/05/23 Unknown x2)-ritonavir 100 mg tablet,dose #30 tabs pack (Paxlovid) Active Medications Generic Name Dose Route Start Last Admin Trade Name Freq PRN Reason Stop Dose Admin Acetaminophen 1,000 mg 12/09/23 11:59 12/23/23 22:11 Acetaminophen 500 Mg Tab PO 01/04/24 14:19 1,000 mg Q8H PRN Administration Pain or Fever Apixaban 5 mg 12/05/23 21:00 12/24/23 09:19 Apixaban 5 Mg Tablet PO 01/04/24 20:59 5 mg BID BALJEET Administration Atorvastatin Calcium 40 mg 12/06/23 09:00 12/24/23 09:19 Atorvastatin 40 Mg Tab PO 01/05/24 08:59 40 mg DAILY BALJEET Administration Diclofenac Sodium 4 gm 12/05/23 14:20 12/20/23 19:58 Diclofenac Sod 1% Gel 100 Gm Tube EXT 01/04/24 14:19 4 gm Q6H PRN Administration knee pain Protocol Digoxin 0.125 mg 12/19/23 16:00 12/24/23 15:59 Digoxin 0.125 Mg Tab PO 01/18/24 15:59 0.125 mg DAILY@1600 BALJEET Administration Docusate Sodium 100 mg 12/11/23 21:00 12/24/23 09:19 Docusate Sodium 100 Mg Cap PO 01/10/24 20:59 100 mg BID BALJEET Administration Ergocalciferol 50,000 units 12/08/23 09:00 12/22/23 08:57 Ergocalciferol 50,000 Units 1250 Mcg Cap PO 01/07/24 08:59 50,000 units We@0900 BALJEET Administration Gabapentin 300 mg 12/05/23 21:00 12/23/23 22:14 Gabapentin 300 Mg Cap PO 01/04/24 20:59 300 mg HS BALJEET Administration Hydroxyzine HCl 25 mg 12/16/23 16:01 12/24/23 09:19 Hydroxyzine Hcl 25 Mg Tab PO 01/15/24 16:00 25 mg Q6H PRN Administration Anxiety/Insomnia Ceftriaxone Sodium 2,000 mg/ 50 mls @ 100 mls/hr 12/16/23 09:00 12/24/23 09:22 Dextrose IV 12/29/23 08:59 100 mls/hr Q24H BALJEET Administration Protocol Bumetanide 4 mg/ Syringe 16 mls @ 4 mls/min 12/24/23 09:30 12/24/23 15:59 IV 01/23/24 09:29 4 mls/min Q8H BALJEET Administration Levothyroxine Sodium 100 mcg 12/06/23 06:30 12/24/23 06:13 Levothyroxine Sodium 100 Mcg Tablet PO 01/05/24 06:29 100 mcg DAILYBB BALJEET Administration Lidocaine 1 patch 12/09/23 09:15 12/24/23 09:23 Lidocaine 5% 1 Patch TD 01/08/24 09:14 1 patch QAM BALJEET Administration Metolazone 5 mg 12/23/23 13:30 12/24/23 14:11 Metolazone 5 Mg Tablet PO 01/22/24 13:29 5 mg BID@0730,1330 BALJEET Administration Metoprolol Succinate 100 mg 12/15/23 21:00 12/24/23 10:06 Metoprolol Succ 50mg Ext Rel Tab PO 01/14/24 20:59 100 mg BID BALJEET Administration Miconazole Nitrate 1 appln 12/06/23 00:30 12/24/23 11:14 Miconazole Nitrate Powder 85 Gm EXT 01/05/24 00:29 1 appln BID BALJEET Administration Miconazole Nitrate 1 appln 12/20/23 21:00 12/24/23 09:24 Miconazole Nitrate 2% Cr 30 Gm Tube EXT 01/19/24 20:59 1 appln BID BALJEET Administration Miscellaneous 1 each 12/09/23 21:00 12/23/23 22:16 Remove Lidoderm Patch N/A 01/08/24 20:59 1 each DAILY@2100 BALJEET Administration Oxycodone/Acetaminophen 1 tab 12/23/23 13:12 12/24/23 08:58 Oxycodone/Apap 7.5/325mg Tab PO 01/06/24 13:11 1 tab Q4H PRN Administration Pain Polyethylene Glycol 17 gm 12/05/23 14:20 12/16/23 08:58 Polyethylene (Miralax) 17 Gm Pack PO 01/04/24 14:19 17 gm DAILY PRN Administration Constipation
[2023-12-24 07:42] LABS: Albumin Globulin Ratio 1.2 (0.9-2); Albumin Level 3.3 gm/dl (3.4-5.0); BUN Creatinine Ratio 25.7 (10-20); Bilirubin,Total 0.5 mg/dl (0.2-1.0); Est GFR (African American) 32.8 ml/min; Est GFR (Non-African American) 28.3 ml/min; Globulin 2.7 gm/dl (2.5-4.0); Magnesium 2.1 mg/dl (1.7-2.4); Phosphorus 4.2 mg/dl (2.5-4.9); Potassium 4.8 mmol/L (3.5-5.1)
--- NOTE | 2023-12-24 07:47 | Cardiology Progress Note ---
Date of Service December 24, 2023 Assessment & Plan (1) Atrial fibrillation with rapid ventricular response: (2) Acute on chronic heart failure with preserved ejection fraction: (3) Gross hematuria: (4) Aortic stenosis: Plan IMPRESSION: Hospital day 19. 63-year-old female with body mass index of 68 kg/m, chronic lymphedema, and paroxysmal atrial fibrillation with borderline tachycardia-bradycardia syndrome. She had previously been maintained in sinus rhythm on sotalol 40 mg twice daily which was held on presentation due to acute kidney injury. She presented with upper respiratory complaint symptoms and findings of SARS-CoV-2 infection. PLAN: Persistent atrial fibrillation: She developed Atrial fibrillation with rapid ventricular response along with acute kidney injury prompting discontinuation of low-dose sotalol. Initially IV diltiazem utilized for rate control, then a trial of amiodarone had been initiated, but patient failed to convert to NSR Metoprolol titrated to 100 mg BID and digoxin added with IV bolus/load. Spoke with nursing-- okay to metoprolol, BP mildly low but patient is asymptomatic. HR's have improved and now remain around 90-100 bpm Continue Eliquis for stroke prophylaxis. Acute on chronic diastolic CHF: Patient remains markedly volume overloaded with significant lower extremity edema. Poor outputs overnight. Creatinine increased from 1.3 to 1.6 >>1.4 >>1.8>>1.87. Mild hyponatremia-- likely dilutional IV Lasix stopped in favor of IV Bumex q8 + metolazone 5 mg BID per nephrology-- appreciate recommendations 1500 mL fld restriction-- NO OUTSIDE SODA. 2g sodium restriction. daily standing weights. Strict I&O. Danielle catheter in place [facility] Recommend workup for hypoventilation syndrome. Gross hematuria: Improved. Recent left ureter stent 11/08/2023. Outpatient follow-up recommended by urology with plans for repeat cystoscopy in the future. Mild aortic stenosis: New per inpatient echo. Will follow-up as an outpatient. Case discussed with Dr. Crow Bal spent a total of 30 minutes on the date of service in preparation, delivery, and documentation of the care provided to this patient, excluding any time spent in the performance of separately billed services. FLYNN Ortega Department of Cardiology, [facility] This chart was completed in part utilizing Speech Voice Recognition Software. Grammatical errors, random word insertions, pronoun errors, and incomplete sentences are an occasional consequence of this system due to software limitations, ambient noise, and hardware issues. Any formal questions or concerns about the content, text, or information contained within the body of this dictation should be directly addressed to the provider for clarification. [place]. Admission and Anticipated Discharge Date Admission Date: December 05, 2023 Supervising Physician Co-Signing Physician Notes Assessment and plan as well outlined above. Appreciate nephrology aid in diuresis. Echocardiogram demonstrates normal to hyperdynamic LV systolic function, mild calcific aortic stenosis No left heart dysfunction Subjective Medically complex morbidly obese 63-year-old female. Currently being treated for acute on chronic diastolic CHF--volume status has proven difficult to manage. During her prolonged admission she developed atrial fibrillation with RVR and acute kidney injury prompting discontinuation of sotalol--amiodarone was initiated but failed to convert to sinus rhythm which prompted discontinuation. Metoprolol was titrated and digoxin was added. Over her hospital stay heart rates have been averaging in the 100s to 130s. 12/23/2023: Diuretics aggressively adjusted--Lasix was increased to 80 mg 3 times daily with metolazone 5 mg twice daily by nephrology. Echocardiogram showed a hyperdynamic LVEF of 65 to 70% with a severely dilated left atrium. There was no wall motion abnormalities. Moderate LVH. Mild aortic stenosis noted. 12/24/2023: Poor output over the last 24 hours I&O: -700mL over 24 hrs, total 10.2 L. Per nephrology-- IV Lasix stopped and transitioned to IV Bumex Q8hr + metolazone 5 bid. Aldactone stopped. No Weight loss Weight: 179.5 kg >> 175 kg Labs: Serum creatinine of 1.87, mild hyponatremia 135 stable. Potassium within normal limits 4.8. Tele: AFIB 90-100s Upon entrance into the room patient sitting up in the chair. Fiance and nurse at bedside. Chart and tele reviewed. Patient remains markedly volume over loaded. +++BLLE pitting edema. +Dyspnea. No chest pain. Danielle cath in place. Review of Systems Review of Systems: All systems reviewed & are unremarkable except as noted in HPI & below Physical Exam Constitutional: + ill appearing and + morbidly obese; no acute distress Neck: + thick neck Respiratory: no respiratory distress, no labored breathing and no retractions Auscultation: + diminished lung sounds; no crackles and no rales Cardiovascular: Rate/Rhythm: + irregularly irregular Heart Sounds: normal S2 and + murmur (systolic murmur ) Vessels: no JVD Extremities: + edema (Lymphedema pattern, 2-3+ edema b/l with erythema and seeping) Gastrointestinal (Abdomen): normal bowel sounds, soft, nontender, no hepatosplenomegaly Inspection/Auscultation: normal bowel sounds; abdomen not distended Percussion/Palpation: abdomen nontender, no guarding and abdomen not rigid Neurologic: PERRL, EOMI, accommodation nl, no face palsy, no dysarthria CN's II-XI intact bilaterally and moves all extremities; no focal motor deficits Psychiatric: Orientation: alert and oriented x 3 Results & Data Vital Signs (Past 12 Hours) Vital Signs Temp Pulse Pulse Resp BP Pulse Ox O2 Del Method 12/24/23 03:18 36.8 C 99 H 18 120/70 97 Room Air 12/23/23 23:32 90 12/23/23 22:47 36.6 C 107 H 18 116/74 97 Room Air 12/23/23 19:45 36.5 C 92 H 18 113/70 95 Room Air Laboratory Results Cardiac Enzymes 12/24/23 Range/Units 06:42 AST 15 (13-39) U/L Comprehensive Metabolic Panel 12/23/23 12/24/23 Range/Units 18:10 06:42 Sodium 135 L 135 L (136-145) mmol/L Potassium 4.5 4.8 (3.5-5.1) mmol/L Chloride 98 99 (98-107) mmol/L Carbon Dioxide 27 29 (21-32) mmol/L BUN 48 H 48 H (6-23) mg/dl Creatinine 1.80 H D 1.87 H (0.6-1.2) mg/dl Glucose 131 H 97 (70-99(Fasting)) mg/dl Calcium 9.0 9.0 (8.6-10.3) mg/dl AST 15 (13-39) U/L ALT 18 (7-52) U/L Alkaline Phosphatase 59 (34-104) U/L Total Protein 6.0 (6.0-8.3) gm/dl Albumin 3.3 L (3.4-5.0) gm/dl Intake and Output 12/23/23 12/24/23 12/24/23 22:59 06:59 14:59 Intake Total 200 / 1075 150 / 1075 Output Total 651 / 1201 250 / 1201 Balance -451 / -126 -100 / -126 Intake: Oral 200 / 1025 150 / 1025 Output: Urine Amount (Catheter) 650 / 1200 250 / 1200 Danielle/Indwelling 650 / 1200 250 / 1200 # Bowel Movements
--- NOTE | 2023-12-24 09:18 | Nephrology Progress Note ---
Date of Service December 24, 2023 Assessment & Plan Admission and Anticipated Discharge Date Admission Date: December 05, 2023 Subjective Subjective S--C/o massive edema and Discomfort. made 1200 ml urine with current diuretics dose. Despite higher dose of Iv lasix UO went down Exam: awake and alert. Chest b/l clear. CVS--Distant Sounds. Abd--obese+++ Ext--4+ edema with skin changes b/l. Labs--Creat 1.87. K is rising. A/P: Massive edema ( hard to assess fluid status with her wt). Some worsening of Creat--She likely has newer episode of FLETCHER from tubular Injury ( my hypothesis is she likely had period of transient severe Hypotension/Hypoxia few days back and had new ATN) . Creat rise is not from iv lasix as she has not had any diuresis . Sometime possible creat will go down once we achieve diuresis. Rec: 1 Stop iv lasix. Will see if she makes more urine with iv bumex 4 iv q8h + metolazone 5 bid. Stop Aldactone for now. made 1200 ml urine with current diuretics dose. Despite higher dose of Iv lasix UO went down 2 Creat may rise --hard to tell. In any case we still need to diurese. 3 Daily labs. Check for hernandez catheter leakage/Function. Discussed with RN Results & Data Vital Signs (Past 12 Hours) Vital Signs Temp Pulse Pulse Resp BP BP Pulse Ox 12/24/23 08:35 36.4 C L 98 H 18 100/62 97 12/24/23 03:18 36.8 C 99 H 18 120/70 97 12/23/23 23:32 90 12/23/23 22:47 36.6 C 107 H 18 116/74 97 O2 Del Method 12/24/23 08:35 Room Air 12/24/23 03:18 Room Air 12/23/23 23:32 12/23/23 22:47 Room Air
[2023-12-24] MEDS: BUMETANIDE 4 MG in SYRINGE 0 ML IV SCH (11:14)
[2023-12-24] MEDS: POTASSIUM CHLORIDE CRTAB 20 MEQ TABCR PO SCH (21:24)
--- NOTE | 2023-12-25 06:53 | Cardiology Progress Note ---
Date of Service December 25, 2023 Assessment & Plan (1) Atrial fibrillation with rapid ventricular response: (2) Acute on chronic heart failure with preserved ejection fraction: (3) Gross hematuria: (4) Aortic stenosis: Plan IMPRESSION: Hospital day 19. 63-year-old female with body mass index of 68 kg/m, chronic lymphedema, and paroxysmal atrial fibrillation with borderline tachycardia-bradycardia syndrome. She had previously been maintained in sinus rhythm on sotalol 40 mg twice daily which was held on presentation due to acute kidney injury. She presented with upper respiratory complaint symptoms and findings of SARS-CoV-2 infection. PLAN: Persistent atrial fibrillation: She developed Atrial fibrillation with rapid ventricular response along with acute kidney injury prompting discontinuation of low-dose sotalol. Initially IV diltiazem utilized for rate control, then a trial of amiodarone had been initiated, but patient failed to convert to NSR Metoprolol titrated to 100 mg BID and digoxin added with IV bolus/load. Digoxin reduced to 0.125 mg MWF due to renal dysfunction (12/25). HR's have improved and now remain around the low 100s bpm Continue Eliquis for stroke prophylaxis. Acute on chronic diastolic CHF: Patient remains markedly volume overloaded with significant lower extremity edema. Poor outputs overnight. Creatinine increased from 1.3 to 1.6 >>1.4 >>1.8>>1.87>>2.2. Nephrology anticipating a scr increase. IV Lasix stopped in favor of IV Bumex q8 + metolazone 5 mg BID per nephrology-- appreciate recommendations 1500 mL fld restriction-- NO OUTSIDE SODA. 2g sodium restriction. daily standing weights. Strict I&O. Danielle catheter in place CHF EDU Recommend workup for hypoventilation syndrome. Gross hematuria: Improved. Recent left ureter stent 11/08/2023. Outpatient follow-up recommended by urology with plans for repeat cystoscopy in the future. Mild aortic stenosis: New per inpatient echo. Will follow-up as an outpatient. Case discussed with Dr. Arreola I spent a total of 30 minutes on the date of service in preparation, delivery, and documentation of the care provided to this patient, excluding any time spent in the performance of separately billed services. FLYNN Ortega Department of Cardiology, [facility] This chart was completed in part utilizing Speech Voice Recognition Software. Grammatical errors, random word insertions, pronoun errors, and incomplete sentences are an occasional consequence of this system due to software limitations, ambient noise, and hardware issues. Any formal questions or concerns about the content, text, or information contained within the body of this dictation should be directly addressed to the provider for clarification. Ation. Admission and Anticipated Discharge Date Admission Date: December 05, 2023 Supervising Physician Co-Signing Physician Notes Attending attestation: I have reviewed the advanced practitioner's documentation, and agree with, and take responsibility for the plan of care. Subjective: Pt without complaint with exception of ongoing severe LE edema. Exam: Sever LE edema Danielle catheter remains in place, mild hematuria Data: Creatinine has trended up to 2.19. Impression/ Plan: Afib-continue metoprolol and digoxin for rate control Digoxin dose decreased given rising creatining Continue IV bumex 4 mg IV Q8 hrs and Metolazone 5 mg PO BID. Nephrology assistance appreciated. I spent a total of 20 minutes coordinating, documenting, and providing care for this patient excluding time spent in the performance of separately billed services or time spent by another provider. Asher Arreola, DO Subjective Medically complex morbidly obese 63-year-old female. Currently being treated for acute on chronic diastolic CHF--volume status has proven difficult to manage. During her prolonged admission she developed atrial fibrillation with RVR and acute kidney injury prompting discontinuation of sotalol--amiodarone was initiated but failed to convert to sinus rhythm which prompted discontinuation. Metoprolol was titrated and digoxin was added. Over her hospital stay heart rates have been averaging in the 100s to 130s. 12/23/2023: Diuretics aggressively adjusted--Lasix was increased to 80 mg 3 times daily with metolazone 5 mg twice daily by nephrology. Echocardiogram showed a hyperdynamic LVEF of 65 to 70% with a severely dilated left atrium. There was no wall motion abnormalities. Moderate LVH. Mild aortic stenosis noted. 12/24/2023: Poor output over the last 24 hours Per nephrology-- IV Lasix stopped and transitioned to IV Bumex Q8hr + metolazone 5 bid. Aldactone stopped. 12/25/2023: Upon entrance into the room patient sitting up in the chair eating breakfast. No acute concerns over night. Chart and tele reviewed. Patient remains markedly volume over loaded. +++BLLE pitting edema. +Dyspnea. No chest pain. No palpitations. Danielle cath in place. I&O: -11.2L (total) Weight: 174.6 kg Tele: AFIB 110-130s Labs: Ongoing renal dysfunction-- Scr 1.3>> 1.6>>1.8>>2.19. Potassium WNL Review of Systems Review of Systems: All systems reviewed & are unremarkable except as noted in HPI & below Physical Exam Constitutional: + ill appearing and + morbidly obese; no acute distress Neck: + thick neck Respiratory: no respiratory distress, no labored breathing and no retractions Auscultation: + diminished lung sounds; no crackles and no rales Cardiovascular: Rate/Rhythm: + irregularly irregular Heart Sounds: normal S2 and + murmur (systolic murmur ) Vessels: no JVD Extremities: + edema (Lymphedema pattern, 2-3+ edema b/l with erythema and seeping) Gastrointestinal (Abdomen): normal bowel sounds, soft, nontender, no hepatosplenomegaly Inspection/Auscultation: normal bowel sounds; abdomen not distended Percussion/Palpation: abdomen nontender, no guarding and abdomen not rigid Neurologic: PERRL, EOMI, accommodation nl, no face palsy, no dysarthria CN's II-XI intact bilaterally and moves all extremities; no focal motor deficits Psychiatric: Orientation: alert and oriented x 3 Results & Data Vital Signs (Past 12 Hours) Vital Signs Temp Pulse Resp BP BP Pulse Ox O2 Del Method 12/25/23 02:25 36.5 C 100 H 16 101/66 96 Room Air 12/24/23 22:58 36.5 C 101 H 20 104/68 98 Room Air 12/24/23 20:00 Room Air 12/24/23 19:00 36.8 C 104 H 20 98/64 L 98 Room Air
[2023-12-25 07:19] LABS: Hematocrit (blood only) 29.5 % (37.0-47.0); Mean Corpuscular Hemoglobin 27.6 pg (25.0-34.0); Mean Corpuscular Hgb Conc 30.5 g/dL (32.0-36.0); Mean Corpuscular Volume 90.5 fL (80.0-100.0); Mean Platelet Volume 9.6 fL (9.4-12.4); Platelet Count 237 K/uL (130-400); RDW Coefficient of Variation 17.2 % (11.5-14.5); RDW Standard Deviation 55.8 fL (36.4-46.3); Red Blood Count 3.26 M/uL (4.20-5.40); White Blood Count 6.82 K/ul (4.8-10.8)
[2023-12-25 07:37] LABS: BUN Creatinine Ratio 22.8 (10-20); Calcium 8.7 mg/dl (8.6-10.3); Creatinine Clr Calc Pharmacy 42.6 ml/min; Est GFR (African American) 27.1 ml/min; Est GFR (Non-African American) 23.4 ml/min; Magnesium 2.1 mg/dl (1.7-2.4); Potassium 4.2 mmol/L (3.5-5.1)
--- NOTE | 2023-12-25 13:53 | Hospitalist Progress Note ---
Date of Service December 25, 2023 Assessment & Plan (1) Atrial fibrillation with rapid ventricular response: (2) Elevated troponin: (3) COVID-19: (4) Hypoxia: (5) Abdominal pain: (6) Urolithiasis: (7) Generalized weakness: (8) Tachycardia-bradycardia syndrome: (9) Hypertension: (10) HLD (hyperlipidemia): (11) Hypothyroidism: (12) Morbid obesity with BMI of 60.0-69.9, adult: Plan Ms. Cox is a 63 year old woman with PMHx significant for paroxysmal atrial fibrillation anticoagulated on Eliquis, tachybradycardia syndrome refusing pacemaker, HTN, HLD, hypothyroidism, obesity, obstructive uropathy s/p L uretal stent placement on 11/08 admitted with R sided abdominal pain, FLETCHER and atrial fibrillation with RVR in the setting of a COVID infection and UTI. Patient's course complicated by ongoing atrial fibrillation. Patient is now on oral digoxin and still diuresing, though minimally net negative; however, renal function initially continued to downtrend. Course complicated by worsening edema upon cessation of IV lasix as well as difficult to control RVR. #Acute on chronic heart failure with preserved ejection fraction Examination reveals severe bilateral pitting edema. Echo 2021- EF 65-70% Nephrology on board; recommend Bumex 4 mg Q8 along with metolazone Increase in creatinine expected as per nephrology. Continue to monitor. Continue metoprolol 100mg XL BID FR to 1.5L #Atrial fibrillation with rapid ventricular response *improved Presented with R abd pain, found to be in a fib with RVR EKG on admission personally reviewed: A-fib RVR, rate 143 Prior to admission, she was on sotalol. Patient was then started on amiodarone without successful cardioversion; was stopped on December 12, 2023. Currently on metoprolol 100 mg twice daily and digoxin #FLETCHER (acute kidney injury) Likely 2/2 a fib RVR and infection Cr: 1.6 on admission, Initially received IV fluids with improvement in creatinine. Monitor fluid balance Avoid contrast/nephrotoxic meds Monitor renal function, continue to trend CMP Nephrology reconsulted 12/22 -Bumex 4mg q8h -Metolazone 5mg BID #Elevated troponin *resolved Demand ischemia Initial troponin 54. Downtrended to 41.3 EKG with noted atrial fibrillation with RVR Likely elevated secondary to demand ischemia from rapid A-fib, doubt ACS #Tachycardia-bradycardia syndrome *stable History of tachybrady syndrome. Follows with cardiology and EP. In past has refused pacemaker Monitor on telemetry #Hypertension Hold home losartan and HCTZ with current FLETCHER Monitor BPs Currently on metoprolol 100mg BID #Acute complicated UTI 2/2 e coli WBC elevated Urinalysis positive infection. Urine culture growing E. coli; sensitive to ceftriaxone Continue Rocephin on 12/15, EOT tentatively 12/29 for 14 day regimen iso stents Discussed with LYDIA Tucker with Urology: Recommended to l keep hernandez and follow up OP #Gross Hematuria *improving #Acute on Chronic microcytic anemia *stable Pt with gross blood in urinary canister near bed previously Hgb in 9-10 range currently, was 11.4 on 11/08, appears her baseline is ~11 Iron level 44, ferritin 313 Urology consult- appreciate recs -per cardiology and urology, continue with anticoagulation at this time - 12/08- hernandez in, hand irrigate for clots retention, suprapubic pain Urine appears still muddy brown, but likely 2/2 resolving infection Discussed with LYDIA Tucker with Urology: will keep hernandez and follow up OP #COVID-19 *resolved #Acute hypoxic respiratory failure, resolved Pt with sore throat, cough, congestion that started 3-4 days prior to arrival In ER 89% on room air up to 95% on 3L nasal cannula COVID-19 positive on 12/04/22, enhanced precautions completed, completed dex course Chest xray with no acute changes Further supportive treatment as needed Stable, currently on RA #obstructive uropathy s/p stent placement 10/2023 Patient with reported right-sided abdominal pain that started morning of admission. 12/04/2023 (day before admission), CT abdomen pelvis noted LEFT-sided ureteral stent in place, bilateral intrarenal stones, proximal left ureteral stone, diverticulosis with no signs of diverticulitis. No acute appendicitis or bowel obstruction. No evidence of visceral or intra-abdominal injury. No acute fracture. Pain control Urology consult placed for hematuria (see above) but appreciate recs for this as well -pt now requesting to have stents removed but needs HR under control -Plan to discuss with urology once A Fib is controlled: plan for OP follow up, keep hernandez in place #Generalized weakness Ambulates with cane at baseline. Increased generalized weakness over the past several days. Likely secondary to underlying infection with COVID-19 12/04/2023: CT head: No acute intracranial abnormality Fall precautions PT/OT eval-recommending home with s/o support and HH services -Patient willing to consider HH services or rehab if covered, will discuss with CM #HLD (hyperlipidemia) Continue atorvastatin #Hypothyroidism Continue levothyroxine #Morbid obesity with BMI of 60.0-69.9, adult BMI: 68.3 Encourage weight loss Pt ordered bariatric bed for better comfort #Constipation Docusate sodium 100mg BID PRN Miralax ordered PRN milk of magnesia Diet: HH DVT Prophylaxis: On Eliquis CODE STATUS: Full code Dispo: PT/OT now with rehab recommendations. Continues to be hospitalized with atrial fibrillation RVR, FLETCHER requiring close monitoring. Time spent evaluating patient, direct bedside care, chart review, placing orders, interpretation of diagnostic studies, discussion with consultants, patient, and family members, as well as other required patient management activities is 50 minutes Please note the above document was generated using voice recognition software. It may contain grammatical, syntax or spelling errors. Any formal questions or concerns about the content, text or information contained within the body of this dictation should be directly addressed to the provider for clarification Admission and Anticipated Discharge Date Admission Date: December 05, 2023 Subjective Patient seen and examined at bedside. She is sitting on a chair at the side of the bed; not in distress. She denies any pain or discomfort. Review of Systems Review of Systems: All systems reviewed & are unremarkable except as noted in Subjective Physical Exam Physical Exam: Constitutional: Alert oriented x 3; not in distress. Morbidly obese Respiratory: Difficult to appreciate breath sound due to body habitus. Cardiovascular: Irregular, no murmur, no edema Vessels: no JVD or carotid bruit Chest: normal inspection of chest Abdomen: normal bowel sounds, soft, nontender, no hepatosplenomegaly Musculoskeletal: no cyanosis or clubbing, extremities motor strength 5/5. Reduced rash present in abdominal folds Skin: no rashes, warm and dry normal turgor. Severe pitting edema Neurologic: Grossly intact Psychiatric: A+Ox3, euthymic affect Results & Data Results & Data Vital Signs (Past 12 Hours) Vital Signs Temp Pulse Pulse Resp BP Pulse Ox O2 Del Method 12/25/23 11:20 36.4 C L 68 14 134/84 95 Room Air 12/25/23 07:34 36.8 C 97 H 16 131/87 95 Room Air 12/25/23 07:15 133 H 12/25/23 07:15 Room Air 12/25/23 02:25 36.5 C 100 H 16 101/66 96 Room Air
[2023-12-26 08:21] LABS: Basophils # (auto) 0.02 K/uL (0.00-0.20); Basophils % (auto) 0.3 %; Eosinophils # (auto) 0.15 K/uL (0.00-0.50); Eosinophils % (auto) 2.3 %; Hemoglobin 8.4 g/dl (12.0-16.0); Immature Granulocytes # (auto) 0.03 K/uL (0.01-0.20); Immature Granulocytes % (auto) 0.5 %; Lymphocytes # (auto) 2.04 K/uL (1.20-3.40); Lymphocytes % (auto) 30.9 %; Mean Corpuscular Hemoglobin 26.8 pg (25.0-34.0); Mean Corpuscular Volume 89.2 fL (80.0-100.0); Mean Platelet Volume 9.6 fL (9.4-12.4); Monocytes # (auto) 0.56 K/uL (0.11-0.59); Monocytes % (auto) 8.5 %; Neutrophils # (auto) 3.81 K/uL (1.40-6.50); Neutrophils % (auto) 57.5 %; Platelet Count 210 K/uL (130-400); RDW Coefficient of Variation 17.1 % (11.5-14.5); RDW Standard Deviation 54.4 fL (36.4-46.3); Red Blood Count 3.14 M/uL (4.20-5.40); White Blood Count 6.61 K/ul (4.8-10.8)
[2023-12-26 08:41] LABS: Potassium 3.3 mmol/L (3.5-5.1)
[2023-12-26 08:42] LABS: Calcium 8.3 mg/dl (8.6-10.3); Creatinine Clr Calc Pharmacy 48.1 ml/min; Est GFR (Non-African American) 26.7 ml/min
[2023-12-26] MEDS: POTASSIUM CHLORIDE CRTAB 20 MEQ TABCR PO STA (10:51)
--- NOTE | 2023-12-26 10:56 | Cardiology Progress Note ---
Date of Service December 26, 2023 Assessment & Plan (1) Atrial fibrillation with rapid ventricular response: (2) Acute on chronic heart failure with preserved ejection fraction: (3) Gross hematuria: (4) Aortic stenosis: Plan IMPRESSION: Hospital day 19. 63-year-old female with body mass index of 68 kg/m, chronic lymphedema, and paroxysmal atrial fibrillation with borderline tachycardia-bradycardia syndrome. She had previously been maintained in sinus rhythm on sotalol 40 mg twice daily which was held on presentation due to acute kidney injury. She presented with upper respiratory complaint symptoms and findings of SARS-CoV-2 infection. PLAN: Persistent atrial fibrillation: She developed Atrial fibrillation with rapid ventricular response along with acute kidney injury prompting discontinuation of low-dose sotalol. Initially IV diltiazem utilized for rate control, then a trial of amiodarone had been initiated, but patient failed to convert to NSR Changed to rate control strategy. Metoprolol titrated to 100 mg BID and digoxin added with IV bolus/load. Digoxin reduced to 0.125 mg MWF due to renal dysfunction (12/25). HR's have improved and now remain around the low 100s bpm Continue Eliquis for stroke prophylaxis. Acute on chronic diastolic CHF: Patient remains markedly volume overloaded with significant lower extremity edema. Poor outputs overnight. Creatinine increased from 1.3 to 1.6 >>1.4 >>1.8>>1.87>>2.2.-->1.96 milligrams per deciliter Supplemental potassium already ordered for potassium of 3.3 Continue IV Bumex 4 mg IV every 8 hours, metolazone 5 mg p.o. twice daily Gross hematuria: Improved. Recent left ureter stent 11/08/2023. Outpatient follow-up recommended by urology with plans for repeat cystoscopy in the future. Mild aortic stenosis: New per inpatient echo. Will follow-up as an outpatient. This chart was completed in part utilizing Speech Voice Recognition Software. Grammatical errors, random word insertions, pronoun errors, and incomplete sentences are an occasional consequence of this system due to software limitations, ambient noise, and hardware issues. Any formal questions or concerns about the content, text, or information contained within the body of this dictation should be directly addressed to the provider for clarification. Admission and Anticipated Discharge Date Admission Date: December 05, 2023 Subjective Patient seen in cardiology follow-up. She is lying in the left lateral decubitus position in bed. States that she did not sleep well last night. Urine output has improved over the last 24 hours, 3 L of urine output noted. Physical Exam Constitutional: + ill appearing and + obese; no acute di stress Respiratory: no labored breathing Cardiovascular: Rate/Rhythm: + tachycardic and + irregularly irregular Heart Sounds: no murmur Extremities: + edema (Lymphedema pattern, 2+ lower extremity edema, mild erythema of the skin) Gastrointestinal (Abdomen): normal bowel sounds, soft, nontender, no hepatosplenomegaly Neurologic: PERRL, EOMI, accommodation nl, no face palsy, no dysarthria Results & Data Vital Signs (Past 12 Hours) Vital Signs Temp Pulse Resp BP Pulse Ox O2 Del Method 12/26/23 08:10 36.5 C 85 20 114/59 L 96 Room Air 12/26/23 03:56 36.7 C 71 16 101/64 97 Room Air
--- NOTE | 2023-12-26 14:09 | Hospitalist Progress Note ---
Date of Service December 26, 2023 Assessment & Plan (1) Atrial fibrillation with rapid ventricular response: (2) Elevated troponin: (3) COVID-19: (4) Hypoxia: (5) Abdominal pain: (6) Urolithiasis: (7) Generalized weakness: (8) Tachycardia-bradycardia syndrome: (9) Hypertension: (10) HLD (hyperlipidemia): (11) Hypothyroidism: (12) Morbid obesity with BMI of 60.0-69.9, adult: Plan Ms. Cox is a 63 year old woman with PMHx significant for paroxysmal atrial fibrillation anticoagulated on Eliquis, tachybradycardia syndrome refusing pacemaker, HTN, HLD, hypothyroidism, obesity, obstructive uropathy s/p L uretal stent placement on 11/08 admitted with R sided abdominal pain, FLETCHER and atrial fibrillation with RVR in the setting of a COVID infection and UTI. Patient's course complicated by ongoing atrial fibrillation. Patient is now on oral digoxin and still diuresing, though minimally net negative; however, renal function initially continued to downtrend. Course complicated by worsening edema upon cessation of IV lasix as well as difficult to control RVR. #Acute on chronic heart failure with preserved ejection fraction Examination reveals severe bilateral pitting edema. Echo 2021- EF 65-70% Nephrology on board; recommend Bumex 4 mg Q8 along with metolazone Increase in creatinine expected as per nephrology. Continue to monitor. Continue metoprolol 100mg XL BID FR to 1.5L #Atrial fibrillation with rapid ventricular response *improved Presented with R abd pain, found to be in a fib with RVR EKG on admission personally reviewed: A-fib RVR, rate 143 Prior to admission, she was on sotalol. Patient was then started on amiodarone without successful cardioversion; was stopped on December 12, 2023. Currently on metoprolol 100 mg twice daily and digoxin #FLETCHER (acute kidney injury) Likely 2/2 a fib RVR and infection Cr: 1.6 on admission, Initially received IV fluids with improvement in creatinine. Monitor fluid balance Avoid contrast/nephrotoxic meds Monitor renal function, continue to trend CMP Nephrology reconsulted 12/22 -Bumex 4mg q8h -Metolazone 5mg BID #Elevated troponin *resolved Demand ischemia Initial troponin 54. Downtrended to 41.3 EKG with noted atrial fibrillation with RVR Likely elevated secondary to demand ischemia from rapid A-fib, doubt ACS #Tachycardia-bradycardia syndrome *stable History of tachybrady syndrome. Follows with cardiology and EP. In past has refused pacemaker Monitor on telemetry #Hypertension Hold home losartan and HCTZ with current FLETCHER Monitor BPs Currently on metoprolol 100mg BID #Acute complicated UTI 2/2 e coli WBC elevated Urinalysis positive infection. Urine culture growing E. coli; sensitive to ceftriaxone Continue Rocephin on 12/15, EOT tentatively 12/29 for 14 day regimen iso stents Discussed with LYDIA Tucker with Urology: Recommended to l keep hernandez and follow up OP #COVID-19 *resolved #Acute hypoxic respiratory failure, resolved Pt with sore throat, cough, congestion that started 3-4 days prior to arrival COVID-19 positive on 12/04/22, enhanced precautions completed, completed dex course Chest xray with no acute changes #obstructive uropathy s/p stent placement 10/2023 Patient with reported right-sided abdominal pain that started morning of admission. 12/04/2023 (day before admission), CT abdomen pelvis noted LEFT-sided ureteral stent in place, bilateral intrarenal stones, proximal left ureteral stone, diverticulosis with no signs of diverticulitis. No acute appendicitis or bowel obstruction. No evidence of visceral or intra-abdominal injury. No acute fracture. Pain control Urology consult placed for hematuria (see above) but appreciate recs for this as well -pt now requesting to have stents removed but needs HR under control -Plan to discuss with urology once A Fib is controlled: plan for OP follow up, keep hernandez in place #Generalized weakness Ambulates with cane at baseline. Increased generalized weakness over the past several days. Likely secondary to underlying infection with COVID-19 12/04/2023: CT head: No acute intracranial abnormality Fall precautions PT/OT eval-recommending home with s/o support and HH services -Patient willing to consider HH services or rehab if covered, will discuss with CM #HLD (hyperlipidemia) Continue atorvastatin #Hypothyroidism Continue levothyroxine #Morbid obesity with BMI of 60.0-69.9, adult BMI: 68.3 Encourage weight loss Pt ordered bariatric bed for better comfort #Constipation Docusate sodium 100mg BID PRN Miralax ordered PRN milk of magnesia Diet: HH DVT Prophylaxis: On Eliquis CODE STATUS: Full code Dispo: PT/OT now with rehab recommendations. Continues to be hospitalized with atrial fibrillation RVR, FLETCHER requiring close monitoring. Discussed with at bedside. Answered questions/queries. Time spent evaluating patient, direct bedside care, chart review, placing orders, interpretation of diagnostic studies, discussion with consultants, patient, and family members, as well as other required patient management activities is 50 minutes Please note the above document was generated using voice recognition software. It may contain grammatical, syntax or spelling errors. Any formal questions or concerns about the content, text or information contained within the body of this dictation should be directly addressed to the provider for clarification Admission and Anticipated Discharge Date Admission Date: December 05, 2023 Subjective Patient seen and examined at bedside. She is comfortable lying on the bed; not in distress. Urine output of 3 L overnight. Review of Systems Review of Systems: All systems reviewed & are unremarkable except as noted in Subjective Physical Exam Physical Exam: Constitutional: Alert oriented x 3; not in distress. Morbidly obese Respiratory: Difficult to appreciate breath sound due to body habitus. Cardiovascular: Irregular, no murmur, no edema Vessels: no JVD or carotid bruit Chest: normal inspection of chest Abdomen: normal bowel sounds, soft, nontender, no hepatosplenomegaly Musculoskeletal: no cyanosis or clubbing, extremities motor strength 5/5. Reduced rash present in abdominal folds Skin: no rashes, warm and dry normal turgor. Severe pitting edema Neurologic: Grossly intact Psychiatric: A+Ox3, euthymic affect Results & Data Results & Data Vital Signs (Past 12 Hours) Vital Signs Temp Pulse Resp BP Pulse Ox O2 Del Method 12/26/23 11:50 36.7 C 82 18 100/67 96 Room Air 12/26/23 08:10 36.5 C 85 20 114/59 L 96 Room Air 12/26/23 03:56 36.7 C 71 16 101/64 97 Room Air
[2023-12-26] MEDS: PROMETHAZINE HCL 12.5 MG in SODIUM CHLORIDE 0.9% 50 ML IV PRN (23:55)
[2023-12-27 07:02] LABS: Basophils # (auto) 0.02 K/uL (0.00-0.20); Basophils % (auto) 0.3 %; Eosinophils # (auto) 0.12 K/uL (0.00-0.50); Eosinophils % (auto) 1.7 %; Hematocrit (blood only) 25.7 % (37.0-47.0); Hemoglobin 8.2 g/dl (12.0-16.0); Immature Granulocytes # (auto) 0.02 K/uL (0.01-0.20); Immature Granulocytes % (auto) 0.3 %; Lymphocytes # (auto) 2.36 K/uL (1.20-3.40); Mean Corpuscular Hemoglobin 27.8 pg (25.0-34.0); Mean Corpuscular Hgb Conc 31.9 g/dL (32.0-36.0); Mean Corpuscular Volume 87.1 fL (80.0-100.0); Mean Platelet Volume 9.5 fL (9.4-12.4); Monocytes # (auto) 0.58 K/uL (0.11-0.59); Monocytes % (auto) 8.3 %; Neutrophils # (auto) 3.85 K/uL (1.40-6.50); Neutrophils % (auto) 55.4 %; Platelet Count 205 K/uL (130-400); RDW Standard Deviation 53.1 fL (36.4-46.3); Red Blood Count 2.95 M/uL (4.20-5.40); White Blood Count 6.95 K/ul (4.8-10.8)
[2023-12-27 07:23] LABS: BUN Creatinine Ratio 26.4 (10-20); Calcium 8.2 mg/dl (8.6-10.3); Creatinine Clr Calc Pharmacy 51.8 ml/min; Est GFR (African American) 33.9 ml/min; Est GFR (Non-African American) 29.2 ml/min; Potassium 3.6 mmol/L (3.5-5.1)
[2023-12-27] MEDS: ONDANSETRON INJ 2 MG/ML 2 ML VIAL IV PRN (12:39)
--- NOTE | 2023-12-27 14:09 | Cardiology Progress Note ---
Date of Service December 27, 2023 Assessment & Plan (1) Atrial fibrillation with rapid ventricular response: (2) Acute on chronic heart failure with preserved ejection fraction: (3) Gross hematuria: (4) Aortic stenosis: Plan IMPRESSION: Hospital day 22 63-year-old female with body mass index of 68 kg/m, chronic lymphedema, and paroxysmal atrial fibrillation with borderline tachycardia-bradycardia syndrome. She had previously been maintained in sinus rhythm on sotalol 40 mg twice daily which was held on presentation due to acute kidney injury. She presented with upper respiratory complaint symptoms and findings of SARS-CoV-2 infection. PLAN: Persistent atrial fibrillation: She developed Atrial fibrillation with rapid ventricular response along with acute kidney injury prompting discontinuation of low-dose sotalol. Initially IV diltiazem utilized for rate control, then a trial of amiodarone had been initiated, but patient failed to convert to NSR Changed to rate control strategy. Metoprolol titrated to 100 mg BID and digoxin added with IV bolus/load. Digoxin reduced to 0.125 mg MWF due to renal dysfunction (12/25). HR's have improved and now remain around the low 100s bpm, but higher with minimal exertion Pt felt to be high risk for complication with cardioversion. Continue Eliquis for stroke prophylaxis. Acute on chronic diastolic CHF: Patient remains markedly volume overloaded with significant lower extremity edema. Poor outputs overnight. Creatinine increased from 1.3 to 1.6 >>1.4 >>1.8>>1.87>>2.2.-->1.96 -->1.82 milligrams per deciliter Supplemental potassium already ordered for potassium of 3.6 Continue IV Bumex 4 mg IV every 8 hours, metolazone 5 mg p.o. twice daily Gross hematuria: Improved. Recent left ureter stent 11/08/2023. Outpatient follow-up recom mended by urology with plans for repeat cystoscopy in the future. Mild aortic stenosis: New per inpatient echo. Will follow-up as an outpatient. This chart was completed in part utilizing Speech Voice Recognition Software. Grammatical errors, random word insertions, pronoun errors, and incomplete sentences are an occasional consequence of this system due to software limitations, ambient noise, and hardware issues. Any formal questions or concerns about the content, text, or information contained within the body of this dictation should be directly addressed to the provider for clarification. Admission and Anticipated Discharge Date Admission Date: December 05, 2023 Subjective Pt seen in followup. In bedside chair. Wrappings removed from her lower legs. Danielle catheter in place , draining dark colors urine , less hematuria. Telemetry reveals ongoing AF, 100 bpm at rest, 120s with minimal activity. Physical Exam Constitutional: + ill appearing and + obese; no acute di stress Respiratory: no labored breathing Cardiovascular: Rate/Rhythm: + tachycardic and + irregularly irregular Heart Sounds: no murmur Extremities: + edema (Lymphedema pattern, 2+ lower extremity edema, mild erythema of the skin) Gastrointestinal (Abdomen): normal bowel sounds, soft, nontender, no hepatosplenomegaly Neurologic: PERRL, EOMI, accommodation nl, no face palsy, no dysarthria Results & Data Vital Signs (Past 12 Hours) Vital Signs Temp Pulse Pulse Resp BP BP Pulse Ox 12/27/23 12:04 36.8 C 129 H 20 101/69 93 12/27/23 08:49 81/40 L 12/27/23 08:34 37 C 112 H 16 81/40 L 12/27/23 07:53 36.8 C 102 H 18 94/65 L 93 12/27/23 03:43 37.1 C 97 H 21 100/63 93 O2 Del Method 12/27/23 12:04 Room Air 12/27/23 08:49 12/27/23 08:34 Room Air 12/27/23 07:53 Room Air 12/27/23 03:43 Room Air Diagnostic Findings CBC 12/27/23 Range/Units 06:50 WBC 6.95 (4.8-10.8) K/ul RBC 2.95 L (4.20-5.40) M/uL Hgb 8.2 L (12.0-16.0) g/dl Hct 25.7 L (37.0-47.0) % Plt Count 205 (130-400) K/uL Neut # (Auto) 3.85 (1.40-6.50) K/uL Lymph # (Auto) 2.36 (1.20-3.40) K/uL [place] # (Auto) 0.58 (0.11-0.59) K/uL Eos # (Auto) 0.12 (0.00-0.50) K/uL Baso # (Auto) 0.02 (0.00-0.20) K/uL Comprehensive Metabolic Panel 12/27/23 Range/Units 06:50 Sodium 139 (136-145) mmol/L Potassium 3.6 (3.5-5.1) mmol/L Chloride 98 (98-107) mmol/L Carbon Dioxide 33 H (21-32) mmol/L BUN 48 H (6-23) mg/dl Creatinine 1.82 H (0.6-1.2) mg/dl Glucose 99 (70-99(Fasting)) mg/dl Calcium 8.2 L (8.6-10.3) mg/dl Intake and Output 12/26/23 12/27/23 12/27/23 22:59 06:59 14:59 Intake Total 360 / 460.5 50.5 / 460.5 50 / 50 Output Total 800 / 3150 1150 / 3150 Balance -440 / -2689.5 -1099.5 / -2689.5 50 / 50 Intake: IV 50.5 / 100.5 50 / 50 Promethazine HCl 12.5 mg In 50.5 / 50.5 Sodium Chloride 0.9% 50 ml @ 202 mls/hr IV Q6H PRN Rx#: [id number] cefTRIAXone SODIUM 2,000 mg In 50 / 50 Dextrose 5 % Mini-B 50 ml @ 100 mls/hr IV Q24H BALJEET Rx#: [id number] Oral 360 / 360 0 / 360 Output: Urine Amount (Catheter) 800 / 3150 1150 / 3150 Danielle/Indwelling 800 / 3150 1150 / 3150
--- NOTE | 2023-12-27 15:23 | Hospitalist Progress Note ---
Date of Service December 27, 2023 Assessment & Plan (1) Atrial fibrillation with rapid ventricular response: (2) Elevated troponin: (3) COVID-19: (4) Hypoxia: (5) Abdominal pain: (6) Urolithiasis: (7) Generalized weakness: (8) Tachycardia-bradycardia syndrome: (9) Hypertension: (10) HLD (hyperlipidemia): (11) Hypothyroidism: (12) Morbid obesity with BMI of 60.0-69.9, adult: Plan Ms. Cox is a 63 year old woman with PMHx significant for paroxysmal atrial fibrillation anticoagulated on Eliquis, tachybradycardia syndrome refusing pacemaker, HTN, HLD, hypothyroidism, obesity, obstructive uropathy s/p L uretal stent placement on 11/08 admitted with R sided abdominal pain, FLETCHER and atrial fibrillation with RVR in the setting of a COVID infection and UTI. Patient's course complicated by ongoing atrial fibrillation. Patient is now on oral digoxin and still diuresing, though minimally net negative; however, renal function initially continued to downtrend. Course complicated by worsening edema upon cessation of IV lasix as well as difficult to control RVR. Acute on chronic heart failure with preserved ejection fraction Examination reveals severe bilateral pitting edema. Echo 2021- EF 65-70% Nephrology on board; recommend Bumex 4 mg Q8 along with metolazone Appreciate cardiology input and recommendation Has been diuresed enough with decreasing swelling of the legs and no more weeping of fluid from the legs Will monitor PRP and electrolytes FR to 1.5L Atrial fibrillation with rapid ventricular response *improved Complicating acute on chronic heart failure as above Presented with R abd pain, found to be in a fib with RVR EKG on admission personally reviewed: A-fib RVR, rate 143 Prior to admission, she was on sotalol. Patient was then started on amiodarone without successful cardioversion; was stopped on December 12, 2023. Currently on metoprolol 100 mg twice daily and digoxin Rate remains elevated at 109 without any other cardiac symptoms FLETCHER (acute kidney injury) Likely 2/2 a fib RVR and infection Cr: 1.6 on admission, Initially received IV fluids with improvement in creatinine. Monitor fluid balance Avoid contrast/nephrotoxic meds Monitor renal function, continue to trend [facility] Nephrology reconsulted 12/22 -Bumex 4mg q8h -Metolazone 5mg BID Creatinine remains elevated at 1.82 but seems to be minimally improving with BUN at 48 Will continue current diuresis and monitor kidney function and electrolytes Elevated troponin *resolved Demand ischemia Initial troponin 54. Downtrended to 41.3 EKG with noted atrial fibrillation with RVR Likely elevated secondary to demand ischemia from rapid A-fib, doubt ACS Tachycardia-bradycardia syndrome *stable History of tachybrady syndrome. Follows with cardiology and EP. In past has refused pacemaker Monitor on telemetry Hypertension Hold home losartan and HCTZ with current FLETCHER Monitor BPs Currently on metoprolol 100mg BID Acute complicated UTI 2/2 e coli WBC elevated Urinalysis positive infection. Urine culture growing E. coli; sensitive to ceftriaxone Continue Rocephin on 12/15, EOT tentatively 12/29 for 14 day regimen iso stents Discussed with LYDIA Tucker with Urology: Recommended to l keep hernandez and follow up OP COVID-19 *resolved Acute hypoxic respiratory failure, resolved Pt with sore throat, cough, congestion that started 3-4 days prior to arrival COVID-19 positive on 12/04/22, enhanced precautions completed, completed dex course Chest xray with no acute changes Obstructive uropathy s/p stent placement 10/2023 Patient with reported right-sided abdominal pain that started morning of admission. 12/04/2023 (day before admission), CT abdomen pelvis noted LEFT-sided ureteral stent in place, bilateral intrarenal stones, proximal left ureteral stone, diverticulosis with no signs of diverticulitis. No acute appendicitis or bowel obstruction. No evidence of visceral or intra-abdominal injury. No acute fracture. Pain control Urology consult placed for hematuria (see above) but appreciate recs for this as well -pt now requesting to have stents removed but needs HR under control -Plan to discuss with urology once A Fib is controlled: plan for OP follow up, keep hernandez in place Generalized weakness Ambulates with cane at baseline. Increased generalized weakness over the past several days. Likely secondary to underlying infection with COVID-19 12/04/2023: CT head: No acute intracranial abnormality Fall precautions PT/OT eval-recommending home with s/o support and HH services -Patient willing to consider HH services or rehab if covered, will discuss with CM HLD (hyperlipidemia) Continue atorvastatin Hypothyroidism Continue levothyroxine Morbid obesity with BMI of 60.0-69.9, adult BMI: 68.3 Encourage weight loss Pt ordered bariatric bed for better comfort Constipation Docusate sodium 100mg BID PRN Miralax ordered PRN milk of magnesia Diet: HH DVT Prophylaxis: On Eliquis CODE STATUS: Full code Dispo: PT/OT now with rehab recommendations. Continues to be hospitalized with atrial fibrillation RVR, FLETCHER requiring close monitoring. Discussed with at bedside. Answered questions/queries. Time spent evaluating patient, direct bedside care, chart review, placing orders, interpretation of diagnostic studies, discussion with consultants, patient, and family members, as well as other required patient management activities is 50 minutes Please note the above document was generated using voice recognition software. It may contain grammatical, syntax or spelling errors. Any formal questions or concerns about the content, text or information contained within the body of this dictation should be directly addressed to the provider for clarification Admission and Anticipated Discharge Date Admission Date: December 05, 2023 Subjective 12/27/2023 The patient was seen and examined in telemetry unit in presence of the She has been complaining of back pain and has been out of bed on a chair and does not like to go back to the bed Denies any shortness of breath, chest pain or palpitation Has been telling that the swelling in the legs have improved without any more weeping of fluid Review of Systems Review of Systems: All systems reviewed and are unremarkable except as noted below Musculoskeletal: Back pain and right hip pain Physical Exam Physical Exam: Sitting on a chair with some distress due to ongoing pain at the back Constitutional: well developed, well nourished, + ill appearing and + morbidly obese Eyes: PERRL, conjunctivae normal, anicteric sclerae ENMT: external ear and nose normal, oropharynx normal Neck: trachea midline, no thyromegaly Respiratory: + respiratory distress Auscultation: + diminished lung sounds and + crackles (Minimal crackles at the bases) Cardiovascular: Rate/Rhythm: regular rate, regular rhythm and + tachycardic Heart Sounds: normal S1 and normal S2; no murmur Extremities: + edema (2+ edema bilaterally) Gastrointestinal (Abdomen): Inspection/Auscultation: + abdomen distended and normal bowel sounds Percussion/Palpation: abdomen soft; abdomen nontender Musculoskeletal: Pain in the right hip with movement of the right lower extremity Neurologic: Alert, awake and oriented x 3 with Lymphatic: no cervical or axillary lymphadenopathy Results & Data Results & Data Vital Signs (Past 12 Hours) Vital Signs Temp Pulse Pulse Resp BP BP Pulse Ox 12/27/23 15:06 36.7 C 109 H 20 110/70 94 12/27/23 12:04 36.8 C 129 H 20 101/69 93 12/27/23 08:49 81/40 L 12/27/23 08:34 37 C 112 H 16 81/40 L 12/27/23 07:53 36.8 C 102 H 18 94/65 L 93 12/27/23 03:43 37.1 C 97 H 21 100/63 93 O2 Del Method 12/27/23 15:06 Room Air 12/27/23 12:04 Room Air 12/27/23 08:49 12/27/23 08:34 Room Air 12/27/23 07:53 Room Air 12/27/23 03:43 Room Air Laboratory Results Short CBC 12/27/23 Range/Units 06:50 WBC 6.95 (4.8-10.8) K/ul Hgb 8.2 L (12.0-16.0) g/dl Hct 25.7 L (37.0-47.0) % Plt Count 205 (130-400) K/uL BMP 12/27/23 06:50 Sodium 139 Potassium 3.6 Chloride 98 Carbon Dioxide 33 H BUN 48 H Creatinine 1.82 H Glucose 99 Calcium 8.2 L Medications Administered Current Inpatient Medications Acetaminophen (Acetaminophen 500 Mg Tab) 1,000 mg PO Q8H PRN PRN Reason: Pain or Fever Stop: 01/04/24 14:19 Last Admin: 12/25/23 20:44 Dose: 1,000 mg Apixaban (Apixaban 5 Mg Tablet) 5 mg PO BID BALJEET Stop: 01/04/24 20:59 Last Admin: 12/27/23 09:00 Dose: 5 mg Atorvastatin Calcium (Atorvastatin 40 Mg Tab) 40 mg PO DAILY BALJEET Stop: 01/05/24 08:59 Last Admin: 12/27/23 09:00 Dose: 40 mg Diclofenac Sodium (Diclofenac Sod 1% Gel 100 Gm Tube) 4 gm EXT Q6H PRN; Protocol PRN Reason: knee pain Stop: 01/04/24 14:19 Last Admin: 12/20/23 19:58 Dose: 4 gm Digoxin (Digoxin 0.125 Mg Tab) 0.125 mg PO [id number]@1600 [facility] Stop: 01/26/24 15:59 Docusate Sodium (Docusate Sodium 100 Mg Cap) 100 mg PO BID [facility] Stop: 01/10/24 20:59 Last Admin: 12/27/23 10:29 Dose: 100 mg Ergocalciferol (Ergocalciferol 50,000 Units 1250 Mcg Cap) 50,000 units PO We@0900 [facility] Stop: 01/07/24 08:59 Last Admin: 12/22/23 08:57 Dose: 50,000 units Gabapentin (Gabapentin 300 Mg Cap) 300 mg PO HS [facility] Stop: 01/04/24 20:59 Last Admin: 12/26/23 20:03 Dose: 300 mg Guaifenesin/Codeine Phosphate (Guaifenesin/Codeine 100mg/10mg 5ml Udc) 5 ml PO Q6H PRN PRN Reason: Cough Stop: 01/21/24 16:18 Hydroxyzine HCl (Hydroxyzine Hcl 25 Mg Tab) 25 mg PO Q6H PRN PRN Reason: Anxiety/Insomnia Stop: 01/15/24 16:00 Last Admin: 12/24/23 09:19 Dose: 25 mg Ceftriaxone Sodium 2,000 mg/ (Dextrose) 50 mls @ 100 mls/hr IV Q24H [facility]; Protocol Stop: 12/29/23 08:59 Last Infusion: 12/27/23 12:24 Dose: Infused Bumetanide 4 mg/ Syringe 16 mls @ 4 mls/min IV Q8H [facility] Stop: 01/23/24 09:29 Last Admin: 12/27/23 09:00 Dose: 4 mls/min Promethazine HCl 12.5 mg/ (Sodium Chloride) 50.5 mls @ 202 mls/hr IV Q6H PRN PRN Reason: Nausea And Vomiting Stop: 01/25/24 21:27 Last Infusion: 12/27/23 00:39 Dose: Infused Levothyroxine Sodium (Levothyroxine Sodium 100 Mcg Tablet) 100 mcg PO DAILYBB [facility] Stop: 01/05/24 06:29 Last Admin: 12/27/23 06:03 Dose: 100 mcg Lidocaine (Lidocaine 5% 1 Patch) 1 patch TD QAM [facility] Stop: 01/08/24 09:14 Last Admin: 12/27/23 08:59 Dose: 1 patch Magnesium Hydroxide (Magnesium Hydroxide Susp 30 Ml Udc) 30 ml PO Q6H PRN PRN Reason: Constipation Stop: 01/10/24 18:24 Metolazone (Metolazone 5 Mg Tablet) 5 mg PO BID@0730,1330 [facility] Stop: 01/22/24 13:29 Last Admin: 12/27/23 12:31 Dose: 5 mg Metoprolol Succinate (Metoprolol Succ 50mg Ext Rel Tab) 100 mg PO BID [facility] Stop: 01/14/24 20:59 Last Admin: 12/27/23 08:59 Dose: Not Given Miconazole Nitrate (Miconazole Nitrate Powder 85 Gm) 1 appln EXT BID [facility] Stop: 01/05/24 00:29 Last Admin: 12/27/23 08:58 Dose: 1 appln Miconazole Nitrate (Miconazole Nitrate 2% Cr 30 Gm Tube) 1 appln EXT BID [facility] Stop: 01/19/24 20:59 Last Admin: 12/27/23 08:58 Dose: 1 appln Miscellaneous (Remove Lidoderm Patch) 1 each N/A DAILY@2100 [facility] Stop: 01/08/24 20:59 Last Admin: 12/26/23 19:59 Dose: 1 each Ondansetron HCl (Ondansetron Inj 2 Mg/Ml 2 Ml Vial) 4 mg IV Q6H PRN PRN Reason: Nausea And Vomiting Stop: 01/26/24 12:29 Last Admin: 12/27/23 12:39 Dose: 4 mg Oxycodone/Acetaminophen (Oxycodone/Apap 7.5/325mg Tab) 1 tab PO Q4H PRN PRN Reason: Pain Stop: 01/06/24 13:11 Last Admin: 12/27/23 00:49 Dose: 1 tab Polyethylene Glycol (Polyethylene (Miralax) 17 Gm Pack) 17 gm PO DAILY PRN PRN Reason: Constipation Stop: 01/04/24 14:19 Last Admin: 12/16/23 08:58 Dose: 17 gm Potassium Chloride (Potassium Chloride Crtab 20 Meq Tabcr) 20 meq PO BID [facility] Stop: 01/23/24 20:59 Last Admin: 12/27/23 09:00 Dose: 20 meq
[2023-12-27] MEDS: DIGOXIN 0.125 MG TAB PO SCH (16:11)
[2023-12-28 07:10] LABS: Basophils # (auto) 0.03 K/uL (0.00-0.20); Basophils % (auto) 0.5 %; Eosinophils # (auto) 0.18 K/uL (0.00-0.50); Eosinophils % (auto) 2.9 %; Hematocrit (blood only) 26.9 % (37.0-47.0); Hemoglobin 8.3 g/dl (12.0-16.0); Immature Granulocytes # (auto) 0.02 K/uL (0.01-0.20); Immature Granulocytes % (auto) 0.3 %; Lymphocytes % (auto) 33.9 %; Mean Corpuscular Hemoglobin 27.2 pg (25.0-34.0); Mean Corpuscular Hgb Conc 30.9 g/dL (32.0-36.0); Mean Corpuscular Volume 88.2 fL (80.0-100.0); Mean Platelet Volume 9.6 fL (9.4-12.4); Monocytes # (auto) 0.58 K/uL (0.11-0.59); Monocytes % (auto) 9.4 %; Neutrophils # (auto) 3.28 K/uL (1.40-6.50); Platelet Count 210 K/uL (130-400); RDW Coefficient of Variation 17.1 % (11.5-14.5); RDW Standard Deviation 54.3 fL (36.4-46.3); Red Blood Count 3.05 M/uL (4.20-5.40); White Blood Count 6.19 K/ul (4.8-10.8)
[2023-12-28 07:24] LABS: BUN Creatinine Ratio 23.6 (10-20); Calcium 8.1 mg/dl (8.6-10.3); Creatinine Clr Calc Pharmacy 46.5 ml/min; Est GFR (African American) 29.7 ml/min; Est GFR (Non-African American) 25.6 ml/min; Magnesium 1.6 mg/dl (1.7-2.4); Phosphorus 4.4 mg/dl (2.5-4.9); Potassium 3.3 mmol/L (3.5-5.1)
[2023-12-28] MEDS: MAGNESIUM OXIDE 400 MG TAB PO SCH (08:37)
[2023-12-28] MEDS: POTASSIUM CHLORIDE CRTAB 20 MEQ TABCR PO STA (08:37)
[2023-12-28] MEDS: DICLOFENAC SOD 1% GEL 100 GM TUBE EXT SCH (12:57)
--- NOTE | 2023-12-28 13:08 | Hospitalist Progress Note ---
Date of Service December 28, 2023 Assessment & Plan (1) Atrial fibrillation with rapid ventricular response: (2) Elevated troponin: (3) COVID-19: (4) Hypoxia: (5) Abdominal pain: (6) Urolithiasis: (7) Generalized weakness: (8) Tachycardia-bradycardia syndrome: (9) Hypertension: (10) HLD (hyperlipidemia): (11) Hypothyroidism: (12) Morbid obesity with BMI of 60.0-69.9, adult: Plan Ms. Cox is a 63 year old woman with PMHx significant for paroxysmal atrial fibrillation anticoagulated on Eliquis, tachybradycardia syndrome refusing pacemaker, HTN, HLD, hypothyroidism, obesity, obstructive uropathy s/p L uretal stent placement on 11/08 admitted with R sided abdominal pain, FLETCHER and atrial fibrillation with RVR in the setting of a COVID infection and UTI. Patient's course complicated by ongoing atrial fibrillation. Patient is now on oral digoxin and still diuresing, though minimally net negative; however, renal function initially continued to downtrend. Course complicated by worsening edema upon cessation of IV lasix as well as difficult to control RVR. Acute on chronic heart failure with preserved ejection fraction Examination reveals severe bilateral pitting edema. Echo 2021- EF 65-70% Nephrology on board; recommend Bumex 4 mg Q8 along with metolazone Appreciate cardiology input and recommendation Has been diuresed enough with decreasing swelling of the legs and no more weeping of fluid from the legs FR to 1.5L Has been having enough diuresis with cumulative negative balance of 17 L We will continue the current dose of diuretics and monitor electrolytes and kidney function Blood pressure remains on the lower side Atrial fibrillation with rapid ventricular response *improved Complicating acute on chronic heart failure as above Presented with R abd pain, found to be in a fib with RVR EKG on admission personally reviewed: A-fib RVR, rate 143 Prior to admission, she was on sotalol. Patient was then started on amiodarone without successful cardioversion; was stopped on December 12, 2023. Currently on metoprolol 100 mg twice daily and digoxin Rate remains elevated at 109 without any other cardiac symptoms Rate seems to be controlled today with seems to be within normal range at 88 today FLETCHER (acute kidney injury) Likely 2/2 a fib RVR and infection Cr: 1.6 on admission, Initially received IV fluids with improvement in creatinine. Monitor fluid balance Avoid contrast/nephrotoxic meds Monitor renal function, continue to trend CMP Nephrology reconsulted 12/22 -Bumex 4mg q8h -Metolazone 5mg BID Creatinine remains elevated at 1.82 but seems to be minimally improving with BUN at 48 Will continue current diuresis and monitor kidney function and electrolytes Creatinine remains stable with potassium and magnesium on the lower side Will continue the oral supplement Elevated troponin *resolved Demand ischemia Initial troponin 54. Downtrended to 41.3 EKG with noted atrial fibrillation with RVR Likely elevated secondary to demand ischemia from rapid A-fib, doubt ACS Tachycardia-bradycardia syndrome *stable History of tachybrady syndrome. Follows with cardiology and EP. In past has refused pacemaker Monitor on telemetry Hypertension Hold home losartan and HCTZ with current FLETCHER Monitor BPs Currently on metoprolol 100mg BID Acute complicated UTI 2/2 e coli WBC elevated Urinalysis positive infection. Urine culture growing E. coli; sensitive to ceftriaxone Continue Rocephin on 12/15, EOT tentatively 12/29 for 14 day regimen iso stents Discussed with LYDIA Tucker with Urology: Recommended to l keep hernandez and follow up OP COVID-19 *resolved Acute hypoxic respiratory failure, resolved Pt with sore throat, cough, congestion that started 3-4 days prior to arrival COVID-19 positive on 12/04/22, enhanced precautions completed, completed dex course Chest xray with no acute changes Obstructive uropathy s/p stent placement 10/2023 Patient with reported right-sided abdominal pain that started morning of admission. 12/04/2023 (day before admission), CT abdomen pelvis noted LEFT-sided ureteral stent in place, bilateral intrarenal stones, proximal left ureteral stone, diverticulosis with no signs of diverticulitis. No acute appendicitis or bowel obstruction. No evidence of visceral or intra-abdominal injury. No acute fracture. Pain control Urology consult placed for hematuria (see above) but appreciate recs for this as well -pt now requesting to have stents removed but needs HR under control -Plan to discuss with urology once A Fib is controlled: plan for OP follow up, keep hernandez in place Generalized weakness Ambulates with cane at baseline. Increased generalized weakness over the past several days. Likely secondary to underlying infection with COVID-19 12/04/2023: CT head: No acute intracranial abnormality Fall precautions PT/OT eval-recommending home with s/o support and HH services -Patient willing to consider HH services or rehab if covered, will discuss with CM HLD (hyperlipidemia) Continue atorvastatin Hypothyroidism Continue levothyroxine Morbid obesity with BMI of 60.0-69.9, adult BMI: 68.3 Encourage weight loss Pt ordered bariatric bed for better comfort Constipation Docusate sodium 100mg BID PRN Miralax ordered PRN milk of magnesia Diet: HH DVT Prophylaxis: On Eliquis CODE STATUS: Full code Dispo: PT/OT now with rehab recommendations. Continues to be hospitalized with atrial fibrillation RVR, FLETCHER requiring close monitoring. Discussed with at bedside. Answered questions/queries. Please note the above document was generated using voice recognition software. It may contain grammatical, syntax or spelling errors. Any formal questions or concerns about the content, text or information contained within the body of this dictation should be directly addressed to the provider for clarification Admission and Anticipated Discharge Date Admission Date: December 05, 2023 Subjective 12/27/2023 The patient was seen and examined in telemetry unit in presence of the She has been complaining of back pain and has been out of bed on a chair and does not like to go back to the bed Denies any shortness of breath, chest pain or palpitation Has been telling that the swelling in the legs have improved without any more weeping of fluid 12/28/2023 The patient was seen and examined in telemetry unit in the presence of the She complains to have more swelling of the left leg today with some redness and weeping from the lower leg Denies any chest pain and her palpitation Also complains some left knee pain Review of Systems Review of Systems: All systems reviewed and are unremarkable except as noted below Musculoskeletal: Back pain and right hip pain Physical Exam Physical Exam: Sitting on a chair with some distress due to ongoing pain at the back Constitutional: well developed, well nourished, + ill appearing and + morbidly obese Eyes: PERRL, conjunctivae normal, anicteric sclerae ENMT: external ear and nose normal, oropharynx normal Neck: trachea midline, no thyromegaly Respiratory: + respiratory distress Auscultation: + diminished lung sounds and + crackles (Minimal crackles at the bases) Cardiovascular: Rate/Rhythm: regular rate, regular rhythm and + tachycardic Heart Sounds: normal S1 and normal S2; no murmur Extremities: + edema (2+ edema bilaterally) Gastrointestinal (Abdomen): Inspection/Auscultation: + abdomen distended and normal bowel sounds Percussion/Palpation: abdomen soft; abdomen nontender Musculoskeletal: Left knee has local tenderness but movement seems to be not much painful Neurologic: normal touch/pain/proprioception and moves all extremities; no focal motor deficits Lymphatic: no cervical or axillary lymphadenopathy Results & Data Results & Data Vital Signs (Past 12 Hours) Vital Signs Temp Pulse Pulse Resp BP BP Pulse Ox 12/28/23 11:20 36.6 C 88 18 86/54 L 94 12/28/23 07:49 36.5 C 76 18 115/81 95 12/28/23 07:30 115 H 12/28/23 07:30 12/28/23 03:15 36.7 C 95 H 18 107/90 90 12/28/23 01:50 100/60 12/28/23 01:15 37.5 C 100 H 18 100/78 94 O2 Del Method 12/28/23 11:20 Room Air 12/28/23 07:49 Room Air 12/28/23 07:30 12/28/23 07:30 Nasal Cannula 12/28/23 03:15 Room Air 12/28/23 01:50 12/28/23 01:15 Room Air Laboratory Results Short CBC 12/28/23 Range/Units 06:38 WBC 6.19 (4.8-10.8) K/ul Hgb 8.3 L (12.0-16.0) g/dl Hct 26.9 L (37.0-47.0) % Plt Count 210 (130-400) K/uL BMP 12/28/23 06:38 Sodium 139 Potassium 3.3 L Chloride 96 L Carbon Dioxide 34 H BUN 48 H Creatinine 2.03 H Glucose 96 Calcium 8.1 L Medications Administered Current Inpatient Medications Acetaminophen (Acetaminophen 500 Mg Tab) 1,000 mg PO Q8H PRN PRN Reason: Pain or Fever Stop: 01/04/24 14:19 Last Admin: 12/25/23 20:44 Dose: 1,000 mg Apixaban (Apixaban 5 Mg Tablet) 5 mg PO BID BALJEET Stop: 01/04/24 20:59 Last Admin: 12/28/23 08:37 Dose: 5 mg Atorvastatin Calcium (Atorvastatin 40 Mg Tab) 40 mg PO DAILY [facility] Stop: 01/05/24 08:59 Last Admin: 12/28/23 08:37 Dose: 40 mg Diclofenac Sodium (Diclofenac Sod 1% Gel 100 Gm Tube) 4 gm EXT Q6H PRN; Protocol PRN Reason: knee pain Stop: 01/04/24 14:19 Last Admin: 12/20/23 19:58 Dose: 4 gm Diclofenac Sodium (Diclofenac Sod 1% Gel 100 Gm Tube) 4 gm EXT BID [facility]; Protocol Stop: 01/27/24 10:59 Last Admin: 12/28/23 12:57 Dose: 4 gm Digoxin (Digoxin 0.125 Mg Tab) 0.125 mg PO MoWeFr@1600 [facility] Stop: 01/26/24 15:59 Last Admin: 12/27/23 16:11 Dose: 0.125 mg Docusate Sodium (Docusate Sodium 100 Mg Cap) 100 mg PO BID [facility] Stop: 01/10/24 20:59 Last Admin: 12/28/23 08:37 Dose: 100 mg Ergocalciferol (Ergocalciferol 50,000 Units 1250 Mcg Cap) 50,000 units PO We@0900 [facility] Stop: 01/07/24 08:59 Last Admin: 12/22/23 08:57 Dose: 50,000 units Gabapentin (Gabapentin 300 Mg Cap) 300 mg PO HS [facility] Stop: 01/04/24 20:59 Last Admin: 12/27/23 20:51 Dose: 300 mg Guaifenesin/Codeine Phosphate (Guaifenesin/Codeine 100mg/10mg 5ml Udc) 5 ml PO Q6H PRN PRN Reason: Cough Stop: 01/21/24 16:18 Hydroxyzine HCl (Hydroxyzine Hcl 25 Mg Tab) 25 mg PO Q6H PRN PRN Reason: Anxiety/Insomnia Stop: 01/15/24 16:00 Last Admin: 12/24/23 09:19 Dose: 25 mg Ceftriaxone Sodium 2,000 mg/ (Dextrose) 50 mls @ 100 mls/hr IV Q24H [facility]; Protocol Stop: 12/29/23 08:59 Last Infusion: 12/28/23 09:22 Dose: Infused Bumetanide 4 mg/ Syringe 16 mls @ 4 mls/min IV Q8H [facility] Stop: 01/23/24 09:29 Last Admin: 12/28/23 08:38 Dose: 4 mls/min Promethazine HCl 12.5 mg/ (Sodium Chloride) 50.5 mls @ 202 mls/hr IV Q6H PRN PRN Reason: Nausea And Vomiting Stop: 01/25/24 21:27 Last Infusion: 12/27/23 00:39 Dose: Infused Levothyroxine Sodium (Levothyroxine Sodium 100 Mcg Tablet) 100 mcg PO DAILYBB [facility] Stop: 01/05/24 06:29 Last Admin: 12/28/23 06:04 Dose: 100 mcg Lidocaine (Lidocaine 5% 1 Patch) 1 patch TD QAM [facility] Stop: 01/08/24 09:14 Last Admin: 12/28/23 08:38 Dose: 1 patch Magnesium Hydroxide (Magnesium Hydroxide Susp 30 Ml Udc) 30 ml PO Q6H PRN PRN Reason: Constipation Stop: 01/10/24 18:24 Magnesium Oxide (Magnesium Oxide 400 Mg Tab) 400 mg PO BID [facility] Stop: 01/27/24 08:59 Last Admin: 12/28/23 08:37 Dose: 400 mg Metolazone (Metolazone 5 Mg Tablet) 5 mg PO BID@0730,1330 [facility] Stop: 01/22/24 13:29 Last Admin: 12/28/23 07:39 Dose: 5 mg Metoprolol Succinate (Metoprolol Succ 50mg Ext Rel Tab) 100 mg PO BID [facility] Stop: 01/14/24 20:59 Last Admin: 12/28/23 08:37 Dose: 100 mg Miconazole Nitrate (Miconazole Nitrate Powder 85 Gm) 1 appln EXT BID [facility] Stop: 01/05/24 00:29 Last Admin: 12/28/23 08:38 Dose: 1 appln Miconazole Nitrate (Miconazole Nitrate 2% Cr 30 Gm Tube) 1 appln EXT BID [facility] Stop: 01/19/24 20:59 Last Admin: 12/28/23 08:37 Dose: 1 appln Miscellaneous (Remove Lidoderm Patch) 1 each N/A DAILY@2100 [facility] Stop: 01/08/24 20:59 Last Admin: 12/27/23 21:00 Dose: 1 each Ondansetron HCl (Ondansetron Inj 2 Mg/Ml 2 Ml Vial) 4 mg IV Q6H PRN PRN Reason: Nausea And Vomiting Stop: 01/26/24 12:29 Last Admin: 12/27/23 12:39 Dose: 4 mg Oxycodone/Acetaminophen (Oxycodone/Apap 7.5/325mg Tab) 1 tab PO Q4H PRN PRN Reason: Pain Stop: 01/06/24 13:11 Last Admin: 12/28/23 09:07 Dose: 1 tab Polyethylene Glycol (Polyethylene (Miralax) 17 Gm Pack) 17 gm PO DAILY PRN PRN Reason: Constipation Stop: 01/04/24 14:19 Last Admin: 12/16/23 08:58 Dose: 17 gm Potassium Chloride (Potassium Chloride Crtab 20 Meq Tabcr) 20 meq PO BID BALJEET Stop: 01/23/24 20:59 Last Admin: 12/28/23 08:37 Dose: 20 meq
--- NOTE | 2023-12-28 17:06 | Cardiology Progress Note ---
Date of Service December 28, 2023 Assessment & Plan (1) Atrial fibrillation with rapid ventricular response: (2) Acute on chronic heart failure with preserved ejection fraction: (3) Gross hematuria: (4) Aortic stenosis: Plan IMPRESSION: Hospital day 23 63-year-old female with body mass index of 68 kg/m, chronic lymphedema, and paroxysmal atrial fibrillation with borderline tachycardia-bradycardia syndrome. She had previously been maintained in sinus rhythm on sotalol 40 mg twice daily which was held on presentation due to acute kidney injury. She presented with upper respiratory complaint symptoms and findings of SARS-CoV-2 infection. PLAN: Persistent atrial fibrillation: She developed Atrial fibrillation with rapid ventricular response along with acute kidney injury prompting discontinuation of low-dose sotalol. Initially IV diltiazem utilized for rate control, then a trial of amiodarone had been initiated, but patient failed to convert to NSR Changed to rate control strategy. Metoprolol titrated to 100 mg BID and digoxin added with IV bolus/load. Digoxin reduced to 0.125 mg MWF due to renal dysfunction (12/25). HR's have improved and now remain around the low 100s bpm, but higher with minimal exertion Pt felt to be high risk for complication with cardioversion. Continue Eliquis for stroke prophylaxis. Acute on chronic diastolic CHF: Patient remains markedly volume overloaded with significant lower extremity edema. Poor outputs overnight. Creatinine increased from 1.3 to 1.6 >>1.4 >>1.8>>1.87>>2.2.-->1.96 -->1.82-->2.03 milligrams per deciliter Given hypotension and nauseousness. I have discontinued metolazone. Hold Bumex for now. Gross hematuria: Improved. Recent left ureter stent 11/08/2023. Outpatient follow-up recommended by urology with plans for repeat cystoscopy in the future. Mild aortic stenosis: New per inpatient echo. Will follow-up as an outpatient. This chart was completed in part utilizing Speech Voice Recognition Software. Grammatical errors, random word insertions, pronoun errors, and incomplete sentences are an occasional consequence of this system due to software limitations, ambient noise, and hardware issues. Any formal questions or concerns about the content, text, or information contained within the body of this dictation should be directly addressed to the provider for clarification. Admission and Anticipated Discharge Date Admission Date: December 05, 2023 Subjective Patient notes nauseousness today. Lower extremities with Jacob wraps. Recent hypotension noted with several systolic blood pressure readings in the 80s. Telemetry reveals atrial fibrillation with ventricular rate in the 120s. Physical Exam Constitutional: + ill appearing and + obese; no acute di stress Respiratory: no labored breathing Cardiovascular: Rate/Rhythm: + tachycardic and + irregularly irregular Heart Sounds: no murmur Extremities: + edema (Lymphedema pattern, 2+ lower extremity edema, mild erythema of the skin) Gastrointestinal (Abdomen): normal bowel sounds, soft, nontender, no hepatosplenomegaly Neurologic: PERRL, EOMI, accommodation nl, no face palsy, no dysarthria Results & Data Vital Signs (Past 12 Hours) Vital Signs Temp Pulse Pulse Resp BP BP Pulse Ox 12/28/23 15:24 36.9 C 100 H 16 82/45 L 93 12/28/23 15:20 137 H 12/28/23 14:20 83/49 L 12/28/23 11:20 36.6 C 88 18 86/54 L 94 12/28/23 07:49 36.5 C 76 18 115/81 95 12/28/23 07:30 115 H 12/28/23 07:30 O2 Del Method 12/28/23 15:24 Room Air 12/28/23 15:20 12/28/23 14:20 12/28/23 11:20 Room Air 12/28/23 07:49 Room Air 12/28/23 07:30 12/28/23 07:30 Nasal Cannula Laboratory Results CBC 12/28/23 Range/Units 06:38 WBC 6.19 (4.8-10.8) K/ul RBC 3.05 L (4.20-5.40) M/uL Hgb 8.3 L (12.0-16.0) g/dl Hct 26.9 L (37.0-47.0) % Plt Count 210 (130-400) K/uL Neut # (Auto) 3.28 (1.40-6.50) K/uL Lymph # (Auto) 2.10 (1.20-3.40) K/uL Lee # (Auto) 0.58 (0.11-0.59) K/uL Eos # (Auto) 0.18 (0.00-0.50) K/uL Baso # (Auto) 0.03 (0.00-0.20) K/uL Comprehensive Metabolic Panel 12/28/23 Range/Units 06:38 Sodium 139 (136-145) mmol/L Potassium 3.3 L (3.5-5.1) mmol/L Chloride 96 L (98-107) mmol/L Carbon Dioxide 34 H (21-32) mmol/L BUN 48 H (6-23) mg/dl Creatinine 2.03 H (0.6-1.2) mg/dl Glucose 96 (70-99(Fasting)) mg/dl Calcium 8.1 L (8.6-10.3) mg/dl Intake and Output 12/28/23 12/28/23 12/28/23 06:59 14:59 22:59 Intake Total 200 / 550 50 / 50 Output Total 550 / 1900 700 / 700 Balance -350 / -1350 -650 / -650 Intake: IV 50 / 50 cefTRIAXone SODIUM 2,000 mg In 50 / 50 Dextrose 5 % Mini-B 50 ml @ 100 mls/hr IV Q24H [facility] Rx#: [id number] Oral 200 / 500 Output: Urine Amount (Catheter) 550 / 1900 700 / 700 Danielle/Indwelling 550 / 1900 700 / 700 Other: Weight 177.8 kg Weight Measurement Method Built in [facility]
[2023-12-29 07:32] LABS: BUN Creatinine Ratio 21.3 (10-20); Est GFR (African American) 25.5 ml/min; Magnesium 1.7 mg/dl (1.7-2.4); Potassium 3.5 mmol/L (3.5-5.1)
--- NOTE | 2023-12-29 14:09 | Hospitalist Progress Note ---
Date of Service December 29, 2023 Assessment & Plan (1) Atrial fibrillation with rapid ventricular response: (2) Elevated troponin: (3) COVID-19: (4) Hypoxia: (5) Abdominal pain: (6) Urolithiasis: (7) Generalized weakness: (8) Tachycardia-bradycardia syndrome: (9) Hypertension: (10) HLD (hyperlipidemia): (11) Hypothyroidism: (12) Morbid obesity with BMI of 60.0-69.9, adult: Plan Ms. Cox is a 63 year old woman with PMHx significant for paroxysmal atrial fibrillation anticoagulated on Eliquis, tachybradycardia syndrome refusing pacemaker, HTN, HLD, hypothyroidism, obesity, obstructive uropathy s/p L uretal stent placement on 11/08 admitted with R sided abdominal pain, FLETCHER and atrial fibrillation with RVR in the setting of a COVID infection and UTI. Patient's course complicated by ongoing atrial fibrillation. Patient is now on oral digoxin and still diuresing, though minimally net negative; however, renal function initially continued to downtrend. Course complicated by worsening edema upon cessation of IV lasix as well as difficult to control RVR. Acute on chronic heart failure with preserved ejection fraction Examination reveals severe bilateral pitting edema. Echo 2021- EF 65-70% Nephrology on board; recommend Bumex 4 mg Q8 along with metolazone Appreciate cardiology input and recommendation Has been diuresed enough with decreasing swelling of the legs and no more weeping of fluid from the legs FR to 1.5L Has been having enough diuresis with cumulative negative balance of 17 L We will continue the current dose of diuretics and monitor electrolytes and kidney function Blood pressure remains on the lower side Clinically a little better with a cumulative fluid loss of 17,680 mL Diuretics are on hold since yesterday- 12/28/2023 2-3+ edema bilaterally-complicated by heart failure and also morbid obesity and inability to ambulate With weeping from the lower leg especially on the right side and some redness Without any significant infection Has been getting high doses of diuretics with minimal improvement-diuretics on hold now [employer]plane [employer] on board to monitor kidney function and doses of diuretics Left knee pain and pain in the right hip over greater trochanteric area, No acute arthritis Pain improving with local diclofenac cream Atrial fibrillation with rapid ventricular response *improved Complicating acute on chronic heart failure as above Presented with R abd pain, found to be in a fib with RVR EKG on admission personally reviewed: A-fib RVR, rate 143 Prior to admission, she was on sotalol. Patient was then started on amiodarone without successful cardioversion; was stopped on December 12, 2023. Currently on metoprolol 100 mg twice daily and digoxin Rate remains elevated at 109 without any other cardiac symptoms Rate seems to be controlled today with seems to be within normal range at 88 today Rate is controlled FLETCHER (acute kidney injury) Likely 2/2 a fib RVR and infection Cr: 1.6 on admission, Initially received IV fluids with improvement in creatinine. Monitor fluid balance Avoid contrast/nephrotoxic meds Monitor renal function, continue to trend CMP Nephrology reconsulted 12/22 -Bumex 4mg q8h -Metolazone 5mg BID Creatinine remains elevated at 1.82 but seems to be minimally improving with BUN at 48 Will continue current diuresis and monitor kidney function and electrolytes Creatinine remains stable with potassium and magnesium on the lower side Will continue the oral supplement Creatinine remains elevated at 2.30 Elevated troponin *resolved Demand ischemia Initial troponin 54. Downtrended to 41.3 EKG with noted atrial fibrillation with RVR Likely elevated secondary to demand ischemia from rapid A-fib, doubt ACS Tachycardia-bradycardia syndrome *stable History of tachybrady syndrome. Follows with cardiology and EP. In past has refused pacemaker Monitor on telemetry Hypertension Hold home losartan and HCTZ with current FLETCHER Monitor BPs Currently on metoprolol 100mg BID Acute complicated UTI 2/2 e coli WBC elevated Urinalysis positive infection. Urine culture growing E. coli; sensitive to ceftriaxone Continue Rocephin on 12/15, EOT tentatively 12/29 for 14 day regimen iso stents Discussed with LYDIA Tucker with Urology: Recommended to l keep hernandez and follow up OP COVID-19 *resolved Acute hypoxic respiratory failure, resolved Pt with sore throat, cough, congestion that started 3-4 days prior to arrival COVID-19 positive on 12/04/22, enhanced precautions completed, completed dex course Chest xray with no acute changes Obstructive uropathy s/p stent placement 10/2023 Patient with reported right-sided abdominal pain that started morning of admission. 12/04/2023 (day before admission), CT abdomen pelvis noted LEFT-sided ureteral stent in place, bilateral intrarenal stones, proximal left ureteral stone, diverticulosis with no signs of diverticulitis. No acute appendicitis or bowel obstruction. No evidence of visceral or intra-abdominal injury. No acute fracture. Pain control Urology consult placed for hematuria (see above) but appreciate recs for this as well -pt now requesting to have stents removed but needs HR under control -Plan to discuss with urology once A Fib is controlled: plan for OP follow up, keep hernandez in place Generalized weakness Ambulates with cane at baseline. Increased generalized weakness over the past several days. Likely secondary to underlying infection with COVID-19 12/04/2023: CT head: No acute intracranial abnormality Fall precautions PT/OT eval-recommending home with s/o support and HH services -Patient willing to consider HH services or rehab if covered, will discuss with CM HLD (hyperlipidemia) Continue atorvastatin Hypothyroidism Continue levothyroxine Morbid obesity with BMI of 60.0-69.9, adult BMI: 68.3 Encourage weight loss Pt ordered bariatric bed for better comfort Constipation Docusate sodium 100mg BID PRN Miralax ordered PRN milk of magnesia Diet: HH DVT Prophylaxis: On Eliquis CODE STATUS: Full code Dispo: PT/OT now with rehab recommendations. Continues to be hospitalized with atrial fibrillation RVR, FLETCHER requiring close monitoring. Discussed with at bedside. Answered questions/queries. Please note the above document was generated using voice recognition software. It may contain grammatical, syntax or spelling errors. Any formal questions or concerns about the content, text or information contained within the body of this dictation should be directly addressed to the provider for clarification Admission and Anticipated Discharge Date Admission Date: December 05, 2023 Subjective 12/27/2023 The patient was seen and examined in telemetry unit in presence of the She has been complaining of back pain and has been out of bed on a chair and does not like to go back to the bed Denies any shortness of breath, chest pain or palpitation Has been telling that the swelling in the legs have improved without any more weeping of fluid 12/28/2023 The patient was seen and examined in telemetry unit in the presence of the She complains to have more swelling of the left leg today with some redness and weeping from the lower leg Denies any chest pain and her palpitation Also complains some left knee pain 12/29/2023 The patient was seen and examined in telemetry unit in presence of the She has been feeling a little better Complains of pain in the right hip and the left knee pain is better Swelling of the legs seems to be little better but has redness and minimal weeping specially on the left side Review of Systems Review of Systems: All systems reviewed and are unremarkable except as noted below Musculoskeletal: Back pain and right hip pain Physical Exam Physical Exam: Sitting on a chair with some distress due to ongoing pain at the back Constitutional: well developed, well nourished, + ill appearing and + morbidly obese Eyes: PERRL, conjunctivae normal, anicteric sclerae ENMT: external ear and nose normal, oropharynx normal Neck: trachea midline, no thyromegaly Respiratory: + respiratory distress Auscultation: + diminished lung sounds and + crackles (Minimal crackles at the bases) Cardiovascular: Rate/Rhythm: regular rate, regular rhythm and + tachycardic Heart Sounds: normal S1 and normal S2; no murmur Extremities: + edema (2+ edema bilaterally) Gastrointestinal (Abdomen): Inspection/Auscultation: + abdomen distended and normal bowel sounds Percussion/Palpation: abdomen soft; abdomen nontender Musculoskeletal: Localized tenderness over left hip. Any movement is very difficult to initiate due to obesity Neurologic: normal touch/pain/proprioception and moves all extremities; no focal motor deficits Lymphatic: no cervical or axillary lymphadenopathy Results & Data Results & Data Vital Signs (Past 12 Hours) Vital Signs Temp Pulse Resp BP BP Pulse Ox O2 Del Method 12/29/23 11:03 36.4 C L 86 19 96/63 L 96 Room Air 12/29/23 11:00 Room Air 12/29/23 07:35 36.6 C 74 19 95/59 L 95 Room Air 12/29/23 04:30 36.8 C 88 18 114/78 98 Room Air Laboratory Results [facility] 12/29/23 06:50 Sodium 138 Potassium 3.5 Chloride 95 L Carbon Dioxide 33 H BUN 49 H Creatinine 2.30 H Glucose 94 Calcium 8.0 L Medications Administered Current Inpatient Medications Acetaminophen (Acetaminophen 500 Mg Tab) 1,000 mg PO Q8H PRN PRN Reason: Pain or Fever Stop: 01/04/24 14:19 Last Admin: 12/25/23 20:44 Dose: 1,000 mg Apixaban (Apixaban 5 Mg Tablet) 5 mg PO BID [facility] Stop: 01/04/24 20:59 Last Admin: 12/29/23 08:54 Dose: 5 mg Atorvastatin Calcium (Atorvastatin 40 Mg Tab) 40 mg PO DAILY [facility] Stop: 01/05/24 08:59 Last Admin: 12/29/23 08:53 Dose: 40 mg Diclofenac Sodium (Diclofenac Sod 1% Gel 100 Gm Tube) 4 gm EXT Q6H PRN; Protocol PRN Reason: knee pain Stop: 01/04/24 14:19 Last Admin: 12/20/23 19:58 Dose: 4 gm Diclofenac Sodium (Diclofenac Sod 1% Gel 100 Gm Tube) 4 gm EXT BID [facility]; Protocol Stop: 01/27/24 10:59 Last Admin: 12/29/23 08:56 Dose: 4 gm Digoxin (Digoxin 0.125 Mg Tab) 0.125 mg PO MoWeFr@1600 [facility] Stop: 01/26/24 15:59 Last Admin: 12/27/23 16:11 Dose: 0.125 mg Docusate Sodium (Docusate Sodium 100 Mg Cap) 100 mg PO BID [facility] Stop: 01/10/24 20:59 Last Admin: 12/29/23 09:03 Dose: 100 mg Ergocalciferol (Ergocalciferol 50,000 Units 1250 Mcg Cap) 50,000 units PO We@0900 [facility] Stop: 01/07/24 08:59 Last Admin: 12/29/23 08:53 Dose: 50,000 units Gabapentin (Gabapentin 300 Mg Cap) 300 mg PO HS [facility] Stop: 01/04/24 20:59 Last Admin: 12/28/23 20:32 Dose: 300 mg Guaifenesin/Codeine Phosphate (Guaifenesin/Codeine 100mg/10mg 5ml Udc) 5 ml PO Q6H PRN PRN Reason: Cough Stop: 01/21/24 16:18 Hydroxyzine HCl (Hydroxyzine Hcl 25 Mg Tab) 25 mg PO Q6H PRN PRN Reason: Anxiety/Insomnia Stop: 01/15/24 16:00 Last Admin: 12/24/23 09:19 Dose: 25 mg Bumetanide 4 mg/ Syringe 16 mls @ 4 mls/min IV Q8H [facility] Stop: 01/23/24 09:29 Last Admin: 12/28/23 17:04 Dose: 4 mls/min Promethazine HCl 12.5 mg/ (Sodium Chloride) 50.5 mls @ 202 mls/hr IV Q6H PRN PRN Reason: Nausea And Vomiting Stop: 01/25/24 21:27 Last Infusion: 12/27/23 00:39 Dose: Infused Levothyroxine Sodium (Levothyroxine Sodium 100 Mcg Tablet) 100 mcg PO DAILYBB [facility] Stop: 01/05/24 06:29 Last Admin: 12/29/23 06:34 Dose: 100 mcg Lidocaine (Lidocaine 5% 1 Patch) 1 patch TD QAM [facility] Stop: 01/08/24 09:14 Last Admin: 12/29/23 10:28 Dose: 1 patch Magnesium Hydroxide (Magnesium Hydroxide Susp 30 Ml Udc) 30 ml PO Q6H PRN PRN Reason: Constipation Stop: 01/10/24 18:24 Magnesium Oxide (Magnesium Oxide 400 Mg Tab) 400 mg PO BID [facility] Stop: 01/27/24 08:59 Last Admin: 12/29/23 08:54 Dose: 400 mg Metoprolol Succinate (Metoprolol Succ 50mg Ext Rel Tab) 100 mg PO BID [facility] Stop: 01/14/24 20:59 Last Admin: 12/29/23 08:54 Dose: 100 mg Miconazole Nitrate (Miconazole Nitrate Powder 85 Gm) 1 appln EXT BID [facility] Stop: 01/05/24 00:29 Last Admin: 12/29/23 08:57 Dose: 1 appln Miconazole Nitrate (Miconazole Nitrate 2% Cr 30 Gm Tube) 1 appln EXT BID [facility] Stop: 01/19/24 20:59 Last Admin: 12/29/23 08:57 Dose: 1 appln Miscellaneous (Remove Lidoderm Patch) 1 each N/A DAILY@2100 [facility] Stop: 01/08/24 20:59 Last Admin: 12/28/23 20:34 Dose: 1 each Ondansetron HCl (Ondansetron Inj 2 Mg/Ml 2 Ml Vial) 4 mg IV Q6H PRN PRN Reason: Nausea And Vomiting Stop: 01/26/24 12:29 Last Admin: 12/28/23 17:04 Dose: 4 mg Oxycodone/Acetaminophen (Oxycodone/Apap 7.5/325mg Tab) 1 tab PO Q4H PRN PRN Reason: Pain Stop: 01/06/24 13:11 Last Admin: 12/29/23 09:03 Dose: 1 tab Polyethylene Glycol (Polyethylene (Miralax) 17 Gm Pack) 17 gm PO DAILY PRN PRN Reason: Constipation Stop: 01/04/24 14:19 Last Admin: 12/16/23 08:58 Dose: 17 gm Potassium Chloride (Potassium Chloride Crtab 20 Meq Tabcr) 20 meq PO BID [facility] Stop: 01/23/24 20:59 Last Admin: 12/29/23 09:03 Dose: 20 meq
--- NOTE | 2023-12-29 17:56 | Cardiology Progress Note ---
Date of Service December 29, 2023 Assessment & Plan (1) Atrial fibrillation with rapid ventricular response: (2) Acute on chronic heart failure with preserved ejection fraction: (3) Gross hematuria: (4) Aortic stenosis: Plan IMPRESSION: Hospital day 24 63-year-old female with body mass index of 68 kg/m, chronic lymphedema, and paroxysmal atrial fibrillation with borderline tachycardia-bradycardia syndrome. She had previously been maintained in sinus rhythm on sotalol 40 mg twice daily which was held on presentation due to acute kidney injury. She presented with upper respiratory complaint symptoms and findings of SARS-CoV-2 infection. PLAN: Persistent atrial fibrillation: She developed Atrial fibrillation with rapid ventricular response along with acute kidney injury prompting discontinuation of low-dose sotalol. Initially IV diltiazem utilized for rate control, then a trial of amiodarone had been initiated, but patient failed to convert to NSR Changed to rate control strategy. Metoprolol titrated to 100 mg BID and digoxin added with IV bolus/load. Digoxin reduced to 0.125 mg MWF due to renal dysfunction (12/25). HR's have improved and now remain around the low 100s bpm, but higher with minimal exertion Pt felt to be high risk for complication with cardioversion. Continue Eliquis for stroke prophylaxis. Acute on chronic diastolic CHF: Patient remains markedly volume overloaded with significant lower extremity edema. Poor outputs overnight. Creatinine increased from 1.3 to 1.6 >>1.4 >>1.8>>1.87>>2.2.-->1.96 -->1.82-->2.03 -->2.3 milligrams per deciliter Given hypotension and nauseousness. I have discontinued metolazone. Hold Bumex for now. Gross hematuria: Improved. Recent left ureter stent 11/08/2023. Outpatient follow-up recommended by urology with plans for repeat cystoscopy in the future. Mild aortic stenosis: New per inpatient echo. Will follow-up as an outpatient. This chart was completed in part utilizing Speech Voice Recognition Software. G rammatical errors, random word insertions, pronoun errors, and incomplete sentences are an occasional consequence of this system due to software limitations, ambient noise, and hardware issues. Any formal questions or concerns about the content, text, or information contained within the body of this dictation should be directly addressed to the provider for clarification. Admission and Anticipated Discharge Date Admission Date: December 05, 2023 Subjective Patient without acute complaint. Nauseousness noted yesterday improved. Atrial fibrillation in the 120s noted at rest. Physical Exam Constitutional: + ill appearing and + obese; no acute di stress Respiratory: no labored breathing Cardiovascular: Rate/Rhythm: + tachycardic and + irregularly irregular Heart Sounds: no murmur Extremities: + edema (Lymphedema pattern, 2+ lower extremity edema, mild erythema of the skin) Gastrointestinal (Abdomen): normal bowel sounds, soft, nontender, no hepatosplenomegaly Neurologic: PERRL, EOMI, accommodation nl, no face palsy, no dysarthria Results & Data Vital Signs (Past 12 Hours) Vital Signs Temp Pulse Resp BP Pulse Ox O2 Del Method 12/29/23 16:21 36.8 C 100 H 20 94/57 L 100 Room Air 12/29/23 11:03 36.4 C L 86 19 96/63 L 96 Room Air 12/29/23 11:00 Room Air 12/29/23 07:35 36.6 C 74 19 95/59 L 95 Room Air Laboratory Results Comprehensive Metabolic Panel 12/29/23 Range/Units 06:50 Sodium 138 (136-145) mmol/L Potassium 3.5 (3.5-5.1) mmol/L Chloride 95 L (98-107) mmol/L Carbon Dioxide 33 H (21-32) mmol/L BUN 49 H (6-23) mg/dl Creatinine 2.30 H (0.6-1.2) mg/dl Glucose 94 (70-99(Fasting)) mg/dl Calcium 8.0 L (8.6-10.3) mg/dl Intake and Output 12/29/23 12/29/23 12/29/23 06:59 14:59 22:59 Intake Total 150 / 350 390 / 390 Output Total 500 / 1400 300 / 300 Balance -350 / -1050 90 / 90 Intake: Oral 150 / 300 390 / 390 Output: Urine Amount (Catheter) 500 / 1400 300 / 300 Danielle/Indwelling 500 / 1400 300 / 300 Other: Weight 177.4 kg
[2023-12-30 09:31] LABS: Albumin Globulin Ratio 1.2 (0.9-2); Albumin Level 3.3 gm/dl (3.4-5.0); BUN Creatinine Ratio 20.2 (10-20); Bilirubin,Total 0.6 mg/dl (0.2-1.0); Calcium 8.6 mg/dl (8.6-10.3); Creatinine Clr Calc Pharmacy 38.6 ml/min; Est GFR (African American) 23.9 ml/min; Est GFR (Non-African American) 20.6 ml/min; Globulin 2.8 gm/dl (2.5-4.0); Potassium 4.6 mmol/L (3.5-5.1); Total Protein 6.1 gm/dl (6.0-8.3)
--- NOTE | 2023-12-30 14:50 | Hospitalist Progress Note ---
Date of Service December 30, 2023 Assessment & Plan (1) Atrial fibrillation with rapid ventricular response: (2) Elevated troponin: (3) COVID-19: (4) Hypoxia: (5) Abdominal pain: (6) Urolithiasis: (7) Generalized weakness: (8) Tachycardia-bradycardia syndrome: (9) Hypertension: (10) HLD (hyperlipidemia): (11) Hypothyroidism: (12) Morbid obesity with BMI of 60.0-69.9, adult: Plan Ms. Cox is a 63 year old woman with PMHx significant for paroxysmal atrial fibrillation anticoagulated on Eliquis, tachybradycardia syndrome refusing pacemaker, HTN, HLD, hypothyroidism, obesity, obstructive uropathy s/p L uretal stent placement on 11/08 admitted with R sided abdominal pain, FLETCHER and atrial fibrillation with RVR in the setting of a COVID infection and UTI. Patient's course complicated by ongoing atrial fibrillation. Patient is now on oral digoxin and still diuresing, though minimally net negative; however, renal function initially continued to downtrend. Course complicated by worsening edema upon cessation of IV lasix as well as difficult to control RVR. Acute on chronic heart failure with preserved ejection fraction Examination reveals severe bilateral pitting edema. Echo 2021- EF 65-70% Nephrology on board; recommend Bumex 4 mg Q8 along with metolazone Appreciate cardiology input and recommendation Has been diuresed enough with decreasing swelling of the legs and no more weeping of fluid from the legs FR to 1.5L Has been having enough diuresis with cumulative negative balance of 17 L We will continue the current dose of diuretics and monitor electrolytes and kidney function Blood pressure remains on the lower side Clinically a little better with a cumulative fluid loss of 17,680 mL Diuretics are on hold since yesterday- 12/28/2023 Making out reasonable amount of urine even without diuretics for the last 2 days 2-3+ edema bilaterally-complicated by heart failure and also morbid obesity and inability to ambulate With weeping from the lower leg especially on the right side and some redness Without any significant infection Has been getting high doses of diuretics with minimal improvement-diuretics on hold now Gel Coater on board to monitor kidney function and doses of diuretics Left knee pain and pain in the right hip over greater trochanteric area, No acute arthritis Pain improving with local diclofenac cream Complains more pain involving the right hip and the back and also left knee area Will increase oxycodone 10/325 every 4 hourly for better pain control Atrial fibrillation with rapid ventricular response *improved Complicating acute on chronic heart failure as above Presented with R abd pain, found to be in a fib with RVR EKG on admission personally reviewed: A-fib RVR, rate 143 Prior to admission, she was on sotalol. Patient was then started on amiodarone without successful cardioversion; was stopped on December 12, 2023. Currently on metoprolol 100 mg twice daily and digoxin Rate remains elevated at 109 without any other cardiac symptoms Rate seems to be controlled today with seems to be within normal range at 88 today Rate remains on the upper side at around 96 FLETCHER (acute kidney injury) Likely 2/2 a fib RVR and infection Cr: 1.6 on admission, Initially received IV fluids with improvement in creatinine. Monitor fluid balance Avoid contrast/nephrotoxic meds Monitor renal function, continue to trend CMP Nephrology reconsulted 12/22 -Bumex 4mg q8h -Metolazone 5mg BID Creatinine remains elevated at 1.82 but seems to be minimally improving with BUN at 48 Will continue current diuresis and monitor kidney function and electrolytes Creatinine remains stable with potassium and magnesium on the lower side Will continue the oral supplement Creatinine remains elevated at 2.30 Elevated troponin *resolved Demand ischemia Initial troponin 54. Downtrended to 41.3 EKG with noted atrial fibrillation with RVR Likely elevated secondary to demand ischemia from rapid A-fib, doubt ACS Tachycardia-bradycardia syndrome *stable History of tachybrady syndrome. Follows with cardiology and EP. In past has refused pacemaker Monitor on telemetry Hypertension Hold home losartan and HCTZ with current FLETCHER Monitor BPs Currently on metoprolol 100mg BID Acute complicated UTI 2/2 e coli WBC elevated Urinalysis positive infection. Urine culture growing E. coli; sensitive to ceftriaxone Continue Rocephin on 12/15, EOT tentatively 12/29 for 14 day regimen iso stents Discussed with LYDIA Tucker with Urology: Recommended to walter keep hernandez and follow up OP COVID-19 *resolved Acute hypoxic respiratory failure, resolved Pt with sore throat, cough, congestion that started 3-4 days prior to arrival COVID-19 positive on 12/04/22, enhanced precautions completed, completed dex course Chest xray with no acute changes Obstructive uropathy s/p stent placement 10/2023 Patient with reported right-sided abdominal pain that started morning of admission. 12/04/2023 (day before admission), CT abdomen pelvis noted LEFT-sided ureteral stent in place, bilateral intrarenal stones, proximal left ureteral stone, diverticulosis with no signs of diverticulitis. No acute appendicitis or bowel obstruction. No evidence of visceral or intra-abdominal injury. No acute fracture. Pain control Urology consult placed for hematuria (see above) but appreciate recs for this as well -pt now requesting to have stents removed but needs HR under control -Plan to discuss with urology once A Fib is controlled: plan for OP follow up, keep hernandez in place Generalized weakness Ambulates with cane at baseline. Increased generalized weakness over the past several days. Likely secondary to underlying infection with COVID-19 12/04/2023: CT head: No acute intracranial abnormality Fall precautions PT/OT eval-recommending home with s/o support and HH services -Patient willing to consider HH services or rehab if covered, will discuss with CM HLD (hyperlipidemia) Continue atorvastatin Hypothyroidism Continue levothyroxine Morbid obesity with BMI of 60.0-69.9, adult BMI: 68.3 Encourage weight loss Pt ordered bariatric bed for better comfort Constipation Docusate sodium 100mg BID PRN Miralax ordered PRN milk of magnesia Diet: HH DVT Prophylaxis: On Eliquis CODE STATUS: Full code Dispo: PT/OT now with rehab recommendations. Continues to be hospitalized with atrial fibrillation RVR, FLETCHER requiring close monitoring. Discussed with at bedside. Answered questions/queries. Please note the above document was generated using voice recognition software. It may contain grammatical, syntax or spelling errors. Any formal questions or concerns about the content, text or information contained within the body of this dictation should be directly addressed to the provider for clarification Admission and Anticipated Discharge Date Admission Date: December 05, 2023 Subjective 12/27/2023 The patient was seen and examined in telemetry unit in presence of the She has been complaining of back pain and has been out of bed on a chair and does not like to go back to the bed Denies any shortness of breath, chest pain or palpitation Has been telling that the swelling in the legs have improved without any more weeping of fluid 12/28/2023 The patient was seen and examined in telemetry unit in the presence of the She complains to have more swelling of the left leg today with some redness and weeping from the lower leg Denies any chest pain and her palpitation Also complains some left knee pain 12/29/2023 The patient was seen and examined in telemetry unit in presence of the She has been feeling a little better Complains of pain in the right hip and the left knee pain is better Swelling of the legs seems to be little better but has redness and minimal weeping specially on the left side 12/30/2023 The patient was seen and examined in telemetry unit She has been complaining of pain in the right hip area and also left knee Denies any shortness of breath Leg swelling remains the same Review of Systems Review of Systems: All systems reviewed and are unremarkable except as noted below Musculoskeletal: Back pain and right hip pain Physical Exam Physical Exam: Sitting on a chair with some distress due to ongoing pain at the back Constitutional: well developed, well nourished, + ill appearing and + morbidly obese Eyes: PERRL, conjunctivae normal, anicteric sclerae ENMT: external ear and nose normal, oropharynx normal Neck: trachea midline, no thyromegaly Respiratory: + respiratory distress Auscultation: + diminished lung sounds and + crackles (Minimal crackles at the bases) Cardiovascular: Rate/Rhythm: regular rate, regular rhythm and + tachycardic Heart Sounds: normal S1 and normal S2; no murmur Extremities: + edema (2+ edema bilaterally) Gastrointestinal (Abdomen): Inspection/Auscultation: + abdomen distended and normal bowel sounds Percussion/Palpation: abdomen soft; abdomen nontender Neurologic: normal touch/pain/proprioception and moves all extremities; no focal motor deficits Lymphatic: no cervical or axillary lymphadenopathy Results & Data Results & Data Vital Signs (Past 12 Hours) Vital Signs Temp Pulse Resp BP BP Pulse Ox O2 Del Method 12/30/23 11:32 36.6 C 96 H 18 117/79 99 Room Air 12/30/23 07:42 37 C 63 18 105/67 92 Room Air 12/30/23 04:00 36.8 C 87 18 116/78 97 Room Air Laboratory Results [facility] 12/30/23 08:52 Sodium 137 Potassium 4.6 D Chloride 93 L Carbon Dioxide 34 H BUN 49 H Creatinine 2.43 H Glucose 131 H Calcium 8.6 Liver Function 12/30/23 Range/Units 08:52 Total Bilirubin 0.6 (0.2-1.0) mg/dl AST 27 (13-39) U/L ALT 27 (7-52) U/L Alkaline Phosphatase 79 (34-104) U/L Albumin 3.3 L (3.4-5.0) gm/dl Medications Administered Current Inpatient Medications Acetaminophen (Acetaminophen 500 Mg Tab) 1,000 mg PO Q8H PRN PRN Reason: Pain or Fever Stop: 01/04/24 14:19 Last Admin: 12/25/23 20:44 Dose: 1,000 mg Apixaban (Apixaban 5 Mg Tablet) 5 mg PO BID [facility] Stop: 01/04/24 20:59 Last Admin: 12/30/23 08:48 Dose: 5 mg Atorvastatin Calcium (Atorvastatin 40 Mg Tab) 40 mg PO DAILY [facility] Stop: 01/05/24 08:59 Last Admin: 12/30/23 08:47 Dose: 40 mg Diclofenac Sodium (Diclofenac Sod 1% Gel 100 Gm Tube) 4 gm EXT Q6H PRN; Protocol PRN Reason: knee pain Stop: 01/04/24 14:19 Last Admin: 12/20/23 19:58 Dose: 4 gm Diclofenac Sodium (Diclofenac Sod 1% Gel 100 Gm Tube) 4 gm EXT BID [facility]; Protocol Stop: 01/27/24 10:59 Last Admin: 12/30/23 08:47 Dose: 4 gm Digoxin (Digoxin 0.125 Mg Tab) 0.125 mg PO MoWeFr@1600 [facility] Stop: 01/26/24 15:59 Last Admin: 12/29/23 17:28 Dose: 0.125 mg Docusate Sodium (Docusate Sodium 100 Mg Cap) 100 mg PO BID [facility] Stop: 01/10/24 20:59 Last Admin: 12/30/23 08:46 Dose: 100 mg Ergocalciferol (Ergocalciferol 1250 Mcg (50,000 Units) Cap) 1,250 mcg PO We@0900 [facility] Stop: 02/04/24 08:59 Gabapentin (Gabapentin 300 Mg Cap) 300 mg PO HS [facility] Stop: 01/04/24 20:59 Last Admin: 12/29/23 20:43 Dose: 300 mg Guaifenesin/Codeine Phosphate (Guaifenesin/Codeine 100mg/10mg 5ml Udc) 5 ml PO Q6H PRN PRN Reason: Cough Stop: 01/21/24 16:18 Hydroxyzine HCl (Hydroxyzine Hcl 25 Mg Tab) 25 mg PO Q6H PRN PRN Reason: Anxiety/Insomnia Stop: 01/15/24 16:00 Last Admin: 12/29/23 20:42 Dose: 25 mg Bumetanide 4 mg/ Syringe 16 mls @ 4 mls/min IV Q8H [facility] Stop: 01/23/24 09:29 Last Admin: 12/28/23 17:04 Dose: 4 mls/min Promethazine HCl 12.5 mg/ (Sodium Chloride) 50.5 mls @ 202 mls/hr IV Q6H PRN PRN Reason: Nausea And Vomiting Stop: 01/25/24 21:27 Last Infusion: 12/27/23 00:39 Dose: Infused Levothyroxine Sodium (Levothyroxine Sodium 100 Mcg Tablet) 100 mcg PO DAILYBB [facility] Stop: 01/05/24 06:29 Last Admin: 12/30/23 05:50 Dose: 100 mcg Lidocaine (Lidocaine 5% 1 Patch) 1 patch TD QAM [facility] Stop: 01/08/24 09:14 Last Admin: 12/30/23 08:49 Dose: 1 patch Magnesium Hydroxide (Magnesium Hydroxide Susp 30 Ml Udc) 30 ml PO Q6H PRN PRN Reason: Constipation Stop: 01/10/24 18:24 Magnesium Oxide (Magnesium Oxide 400 Mg Tab) 400 mg PO BID [facility] Stop: 01/27/24 08:59 Last Admin: 12/30/23 08:47 Dose: 400 mg Metoprolol Succinate (Metoprolol Succ 50mg Ext Rel Tab) 100 mg PO BID [facility] Stop: 01/14/24 20:59 Last Admin: 12/30/23 08:48 Dose: 100 mg Miconazole Nitrate (Miconazole Nitrate Powder 85 Gm) 1 appln EXT BID [facility] Stop: 01/05/24 00:29 Last Admin: 12/30/23 08:49 Dose: 1 appln Miconazole Nitrate (Miconazole Nitrate 2% Cr 30 Gm Tube) 1 appln EXT BID [facility] Stop: 01/19/24 20:59 Last Admin: 12/30/23 08:49 Dose: 1 appln Miscellaneous (Remove Lidoderm Patch) 1 each N/A DAILY@2100 [facility] Stop: 01/08/24 20:59 Last Admin: 12/29/23 20:44 Dose: 1 each Ondansetron HCl (Ondansetron Inj 2 Mg/Ml 2 Ml Vial) 4 mg IV Q6H PRN PRN Reason: Nausea And Vomiting Stop: 01/26/24 12:29 Last Admin: 12/28/23 17:04 Dose: 4 mg Oxycodone/Acetaminophen (Oxycodone/Acetaminophen 10-325 Tab) 1 tab PO Q4H PRN PRN Reason: Pain Stop: 01/13/24 10:09 Polyethylene Glycol (Polyethylene (Miralax) 17 Gm Pack) 17 gm PO DAILY PRN PRN Reason: Constipation Stop: 01/04/24 14:19 Last Admin: 12/16/23 08:58 Dose: 17 gm Potassium Chloride (Potassium Chloride Crtab 20 Meq Tabcr) 20 meq PO BID [facility] Stop: 01/23/24 20:59 Last Admin: 12/30/23 08:52 Dose: 20 meq
[2023-12-31 06:48] LABS: Basophils # (auto) 0.02 K/uL (0.00-0.20); Basophils % (auto) 0.3 %; Eosinophils # (auto) 0.25 K/uL (0.00-0.50); Eosinophils % (auto) 4.3 %; Hematocrit (blood only) 26.3 % (37.0-47.0); Hemoglobin 7.9 g/dl (12.0-16.0); Immature Granulocytes # (auto) 0.03 K/uL (0.01-0.20); Immature Granulocytes % (auto) 0.5 %; Lymphocytes # (auto) 2.01 K/uL (1.20-3.40); Lymphocytes % (auto) 34.3 %; Mean Corpuscular Hemoglobin 27.1 pg (25.0-34.0); Mean Corpuscular Volume 90.4 fL (80.0-100.0); Mean Platelet Volume 9.7 fL (9.4-12.4); Monocytes # (auto) 0.77 K/uL (0.11-0.59); Monocytes % (auto) 13.1 %; Neutrophils # (auto) 2.78 K/uL (1.40-6.50); Neutrophils % (auto) 47.5 %; Nucleated RBC # (auto) 0.02 K/uL (0.00-0.12); Nucleated RBC % (auto) 0.3 %; Platelet Count 245 K/uL (130-400); RDW Coefficient of Variation 17.2 % (11.5-14.5); Red Blood Count 2.91 M/uL (4.20-5.40); White Blood Count 5.86 K/ul (4.8-10.8)
[2023-12-31 07:17] LABS: BUN Creatinine Ratio 19.2 (10-20); Calcium 8.3 mg/dl (8.6-10.3); Creatinine Clr Calc Pharmacy 33.9 ml/min; Est GFR (African American) 20.9 ml/min; Est GFR (Non-African American) 18.1 ml/min; Potassium 4.3 mmol/L (3.5-5.1)
[2023-12-31 07:31] LABS: Polychromasia 1+
[2023-12-31] MEDS: oxyCODONE/ACETAMINOPHEN 10-325 TAB PO PRN (08:39)
--- NOTE | 2023-12-31 12:42 | Nephrology Progress Note ---
Date of Service December 31, 2023 Assessment & Plan (1) FLETCHER (acute kidney injury): Plan: Her baseline creatinine was 1.0 prior to hospital admission; however she's had FLETCHER since arrival w/ waxing and waning renal function. Was 1.7 on arrival creatinine on december 05 and now up to 2.7, highest value this admission. My partners had last seen her with creatinine 1.7 on 12/24; started her on aggressive bumex/metolazone that day, which was stopped late in the day on 12/28. despite holding diuretics, creatinine has continued to climb. She had FLETCHER in the setting of AF w/ RVR and significant cardiac pauses. remains in AF but rates have been better controlled now. Notable edema on exam but hard to assess fluid status meaningfully w/ her body habitus >>she has been having extended period of hypotension, including most of yesterday late afternoon overnight into today >> this will worsen renal function. has been on RA consistently for several days -ordered daily standing weight -continue 1.5 L FR and < 2 gm daily sodium diet -continue to hold diuretics -ordered CXR and repeat UACM, renal u/s -continue bid K supplements for now >maintain SBP >100 generally Care coordinated w/ Clifford Rasmussen and [place] (2) Hematuria: (3) Ureteral stent present: Plan: h/o recurrent Kidney stone and S/p Ureteral Stent placement about 2 weeks bag and currently has gross hematuria. Urology following. She does not want hernandez. No acute findings on the CT report as per urology Admission and Anticipated Discharge Date Admission Date: December 05, 2023 Subjective asked by primary service to reevaluate pt regarding diuretic dosing; my partners had stopped seeing her 12/24. seen w/ her in the room. c/o l knee giving out when she's up to bathroom but not any particularly worsening dyspnea or fatigue w/ this exertion, no palpitaitions. no cough or orthopnea. no dysuria. c/o lightheadedness/"fuzziness" w/ standing. she's not particularly aware of edema one way or another Review of Systems 2 Review of Systems: All systems reviewed & are unremarkable except as noted in Subjective Physical Exam 2 Constitutional: well developed, + morbidly obese, + physical limitations and cooperative; no acute distress Eyes: EOM intact bilaterally ENMT: Ears: no external ear abnormality Nose: no external nose abnormality Mouth: + dry oral mucous membranes Neck: no nuchal rigidity Respiratory: normal respiratory effort (sitting up in chair on RA) A uscultation: lungs clear to auscultation bilaterally and + diminished lung sounds Cardiovascular: Rate/Rhythm: + irregularly irregular (HS distant) E xtremities: + edema (1-2+ distal BLE edema) Gastrointestinal (Abdomen): Inspection/Auscultation: normal bowel sounds P ercussion/Palpation: abdomen soft; abdomen nontender Musculoskeletal: Extremities: strength 5/5 throughout Skin: no rashes, warm and dry Neurologic: yao, fluent speech, no tremor Psychiatric: Orientation: alert and oriented x 3 Results & Data Vital Signs (Past 12 Hours) Vital Signs Temp Pulse Resp BP BP Pulse Ox O2 Del Method 12/31/23 11:50 36.9 C 77 18 111/66 97 Room Air 12/31/23 10:00 Room Air 12/31/23 08:32 36.5 C 102 H 18 81/49 L 95 Room Air 12/31/23 02:39 36.8 C 84 16 95/60 L 98 Room Air Laboratory Results 12/31/23 06:01 12/31/23 06:01 Diagnostic Findings TTE 12/23/23 mild [facility] EF 65% mod RA dilatatoin and severe LA dilatation CT a/p 12/04 BL stones, stent on L ; no hydro (had seen L hydro on 10/2023 u/s)
--- NOTE | 2023-12-31 13:56 | Hospitalist Progress Note ---
Date of Service December 31, 2023 Assessment & Plan (1) Atrial fibrillation with rapid ventricular response: (2) Elevated troponin: (3) COVID-19: (4) Hypoxia: (5) Abdominal pain: (6) Urolithiasis: (7) Generalized weakness: (8) Tachycardia-bradycardia syndrome: (9) Hypertension: (10) HLD (hyperlipidemia): (11) Hypothyroidism: (12) Morbid obesity with BMI of 60.0-69.9, adult: Plan Ms. Cox is a 63 year old woman with PMHx significant for paroxysmal atrial fibrillation anticoagulated on Eliquis, tachybradycardia syndrome refusing pacemaker, HTN, HLD, hypothyroidism, obesity, obstructive uropathy s/p L uretal stent placement on 11/08 admitted with R sided abdominal pain, FLETCHER and atrial fibrillation with RVR in the setting of a COVID infection and UTI. Patient's course complicated by ongoing atrial fibrillation. Patient is now on oral digoxin and still diuresing, though minimally net negative; however, renal function initially continued to downtrend. Course complicated by worsening edema upon cessation of IV lasix as well as difficult to control RVR. Acute on chronic heart failure with preserved ejection fraction Examination reveals severe bilateral pitting edema. Echo 2021- EF 65-70% Nephrology on board; recommend Bumex 4 mg Q8 along with metolazone Appreciate cardiology input and recommendation Has been diuresed enough with decreasing swelling of the legs and no more weeping of fluid from the legs FR to 1.5L Has been having enough diuresis with cumulative negative balance of 17 L We will continue the current dose of diuretics and monitor electrolytes and kidney function Blood pressure remains on the lower side Clinically a little better with a cumulative fluid loss of 17,680 mL Diuretics are on hold since yesterday- 12/28/2023 Making out reasonable amount of urine even without diuretics for the last 2 days Appreciate nephrology reevaluation and continuation to hold diuretics for now Awaiting chest x-ray and renal ultrasound and urine examination for further evaluation 2-3+ edema bilaterally-complicated by heart failure and also morbid obesity and inability to ambulate With weeping from the lower leg especially on the right side and some redness Without any significant infection Has been getting high doses of diuretics with minimal improvement-diuretics on hold now Clinic Office Assistant on board to monitor kidney function and doses of diuretics As above Left knee pain and pain in the right hip over greater trochanteric area, No acute arthritis Pain improving with local diclofenac cream Complains more pain involving the right hip and the back and also left knee area Will increase oxycodone 10/325 every 4 hourly for better pain control Left knee pain is better controlled Atrial fibrillation with rapid ventricular response *improved Complicating acute on chronic heart failure as above Presented with R abd pain, found to be in a fib with RVR EKG on admission personally reviewed: A-fib RVR, rate 143 Prior to admission, she was on sotalol. Patient was then started on amiodarone without successful cardioversion; was stopped on December 12, 2023. Currently on metoprolol 100 mg twice daily and digoxin Rate remains elevated at 109 without any other cardiac symptoms Rate seems to be controlled today with seems to be within normal range at 88 today Rate remains on the upper side at around 96 Heart rate is controlled at 77 FLETCHER (acute kidney injury) Likely 2/2 a fib RVR and infection Cr: 1.6 on admission, Initially received IV fluids with improvement in creatinine. Monitor fluid balance Avoid contrast/nephrotoxic meds Monitor renal function, continue to trend CMP Nephrology reconsulted 12/22 -Bumex 4mg q8h -Metolazone 5mg BID Creatinine remains elevated at 1.82 but seems to be minimally improving with BUN at 48 Will continue current diuresis and monitor kidney function and electrolytes Creatinine remains stable with potassium and magnesium on the lower side Will continue the oral supplement Creatinine remains elevated at 2.71 Elevated troponin *resolved Demand ischemia Initial troponin 54. Downtrended to 41.3 EKG with noted atrial fibrillation with RVR Likely elevated secondary to demand ischemia from rapid A-fib, doubt ACS Tachycardia-bradycardia syndrome *stable History of tachybrady syndrome. Follows with cardiology and EP. In past has refused pacemaker Monitor on telemetry Hypertension Hold home losartan and HCTZ with current FLETCHER Monitor BPs Currently on metoprolol 100mg BID Acute complicated UTI 2/2 e coli WBC elevated Urinalysis positive infection. Urine culture growing E. coli; sensitive to ceftriaxone Continue Rocephin on 12/15, EOT tentatively 12/29 for 14 day regimen iso stents Discussed with LYDIA Tucker with Urology: Recommended to l keep hernandez and follow up OP COVID-19 *resolved Acute hypoxic respiratory failure, resolved Pt with sore throat, cough, congestion that started 3-4 days prior to arrival COVID-19 positive on 12/04/22, enhanced precautions completed, completed dex course Chest xray with no acute changes Obstructive uropathy s/p stent placement 10/2023 Patient with reported right-sided abdominal pain that started morning of admission. 12/04/2023 (day before admission), CT abdomen pelvis noted LEFT-sided ureteral stent in place, bilateral intrarenal stones, proximal left ureteral stone, diverticulosis with no signs of diverticulitis. No acute appendicitis or bowel obstruction. No evidence of visceral or intra-abdominal injury. No acute fracture. Pain control Urology consult placed for hematuria (see above) but appreciate recs for this as well -pt now requesting to have stents removed but needs HR under control -Plan to discuss with urology once A Fib is controlled: plan for OP follow up, keep hernandez in place Generalized weakness Ambulates with cane at baseline. Increased generalized weakness over the past several days. Likely secondary to underlying infection with COVID-19 12/04/2023: CT head: No acute intracranial abnormality Fall precautions PT/OT eval-recommending home with s/o support and HH services -Patient willing to consider HH services or rehab if covered, will discuss with CM Has been getting physical therapy and recommended rehab HLD (hyperlipidemia) Continue atorvastatin Hypothyroidism Continue levothyroxine Morbid obesity with BMI of 60.0-69.9, adult BMI: 68.3 Encourage weight loss Pt ordered bariatric bed for better comfort Constipation Docusate sodium 100mg BID PRN Miralax ordered PRN milk of magnesia Diet: HH DVT Prophylaxis: On Eliquis CODE STATUS: Full code Dispo: PT/OT now with rehab recommendations. Continues to be hospitalized with atrial fibrillation RVR, FLETCHER requiring close monitoring. Discussed with at bedside. Answered questions/queries. Not yet ready to be discharged Please note the above document was generated using voice recognition software. It may contain grammatical, syntax or spelling errors. Any formal questions or concerns about the content, text or information contained within the body of this dictation should be directly addressed to the provider for clarification Admission and Anticipated Discharge Date Admission Date: December 05, 2023 Subjective 12/27/2023 The patient was seen and examined in telemetry unit in presence of the She has been complaining of back pain and has been out of bed on a chair and does not like to go back to the bed Denies any shortness of breath, chest pain or palpitation Has been telling that the swelling in the legs have improved without any more weeping of fluid 12/28/2023 The patient was seen and examined in telemetry unit in the presence of the hus band She complains to have more swelling of the left leg today with some redness and weeping from the lower leg Denies any chest pain and her palpitation Also complains some left knee pain 12/29/2023 The patient was seen and examined in telemetry unit in presence of the She has been feeling a little better Complains of pain in the right hip and the left knee pain is better Swelling of the legs seems to be little better but has redness and minimal weeping specially on the left side 12/30/2023 The patient was seen and examined in telemetry unit She has been complaining of pain in the right hip area and also left knee Denies any shortness of breath Leg swelling remains the same 12/31/2023 The patient was seen and examined in telemetry unit in presence of the She has been feeling a little better today and looks brighter Denies any shortness of breath Still has pain in the right side of the hip and left knee pain is better Review of Systems Review of Systems: All systems reviewed and are unremarkable except as noted below Musculoskeletal: Back pain and right hip pain Physical Exam Physical Exam: Sitting on a chair with some distress due to ongoing pain at the back Constitutional: well developed, well nourished, + ill appearing and + morbidly obese Eyes: PERRL, conjunctivae normal, anicteric sclerae ENMT: external ear and nose normal, oropharynx normal Neck: trachea midline, no thyromegaly Respiratory: + respiratory distress Auscultation: + diminished lung sounds and + crackles (Minimal crackles at the bases) Cardiovascular: Rate/Rhythm: regular rate, regular rhythm and + tachycardic Heart Sounds: normal S1 and normal S2; no murmur Extremities: + edema (2+ edema bilaterally) Gastrointestinal (Abdomen): Inspection/Auscultation: + abdomen distended and n ormal bowel sounds Percussion/Palpation: abdomen soft; abdomen nontender Musculoskeletal: No acute arthritis involving any of the joint. Neurologic: normal touch/pain/proprioception and moves all extremities; no focal motor deficits Lymphatic: no cervical or axillary lymphadenopathy Results & Data Results & Data Vital Signs (Past 12 Hours) Vital Signs Temp Pulse Resp BP BP Pulse Ox O2 Del Method 12/31/23 11:50 36.9 C 77 18 111/66 97 Room Air 12/31/23 10:00 Room Air 12/31/23 08:32 36.5 C 102 H 18 81/49 L 95 Room Air 12/31/23 02:39 36.8 C 84 16 95/60 L 98 Room Air Laboratory Results Short CBC 12/31/23 Range/Units 06:01 WBC 5.86 (4.8-10.8) K/ul Hgb 7.9 L (12.0-16.0) g/dl Hct 26.3 L (37.0-47.0) % Plt Count 245 (130-400) K/uL BMP 12/31/23 06:01 Sodium 135 L Potassium 4.3 Chloride 95 L Carbon Dioxide 32 BUN 52 H Creatinine 2.71 H Glucose 95 Calcium 8.3 L Medications Administered Current Inpatient Medications Acetaminophen (Acetaminophen 500 Mg Tab) 1,000 mg PO Q8H PRN PRN Reason: Pain or Fever Stop: 01/04/24 14:19 Last Admin: 12/25/23 20:44 Dose: 1,000 mg Apixaban (Apixaban 5 Mg Tablet) 5 mg PO BID [facility] Stop: 01/04/24 20:59 Last Admin: 12/31/23 08:42 Dose: 5 mg Atorvastatin Calcium (Atorvastatin 40 Mg Tab) 40 mg PO DAILY [facility] Stop: 01/05/24 08:59 Last Admin: 12/31/23 08:41 Dose: 40 mg Diclofenac Sodium (Diclofenac Sod 1% Gel 100 Gm Tube) 4 gm EXT Q6H PRN; Protocol PRN Reason: knee pain Stop: 01/04/24 14:19 Last Admin: 12/20/23 19:58 Dose: 4 gm Diclofenac Sodium (Diclofenac Sod 1% Gel 100 Gm Tube) 4 gm EXT BID [facility]JE[facility]; Protocol Stop: 01/27/24 10:59 Last Admin: 12/31/23 08:41 Dose: 4 gm Digoxin (Digoxin 0.125 Mg Tab) 0.125 mg PO MoWeFr@1600 [facility] Stop: 01/26/24 15:59 Last Admin: 12/29/23 17:28 Dose: 0.125 mg Docusate Sodium (Docusate Sodium 100 Mg Cap) 100 mg PO BID [facility] Stop: 01/10/24 20:59 Last Admin: 12/31/23 08:39 Dose: 100 mg Ergocalciferol (Ergocalciferol 1250 Mcg (50,000 Units) Cap) 1,250 mcg PO We@0900 [facility] Stop: 02/04/24 08:59 Gabapentin (Gabapentin 300 Mg Cap) 300 mg PO HS [facility] Stop: 01/04/24 20:59 Last Admin: 12/30/23 20:13 Dose: 300 mg Guaifenesin/Codeine Phosphate (Guaifenesin/Codeine 100mg/10mg 5ml Udc) 5 ml PO Q6H PRN PRN Reason: Cough Stop: 01/21/24 16:18 Hydroxyzine HCl (Hydroxyzine Hcl 25 Mg Tab) 25 mg PO Q6H PRN PRN Reason: Anxiety/Insomnia Stop: 01/15/24 16:00 Last Admin: 12/30/23 20:13 Dose: 25 mg Bumetanide 4 mg/ Syringe 16 mls @ 4 mls/min IV Q8H [facility] Stop: 01/23/24 09:29 Last Admin: 12/28/23 17:04 Dose: 4 mls/min Promethazine HCl 12.5 mg/ (Sodium Chloride) 50.5 mls @ 202 mls/hr IV Q6H PRN PRN Reason: Nausea And Vomiting Stop: 01/25/24 21:27 Last Infusion: 12/27/23 00:39 Dose: Infused Levothyroxine Sodium (Levothyroxine Sodium 100 Mcg Tablet) 100 mcg PO DAILYBB [facility] Stop: 01/05/24 06:29 Last Admin: 12/31/23 06:18 Dose: 100 mcg Lidocaine (Lidocaine 5% 1 Patch) 1 patch TD QAM [facility] Stop: 01/08/24 09:14 Last Admin: 12/31/23 08:42 Dose: 1 patch Magnesium Hydroxide (Magnesium Hydroxide Susp 30 Ml Udc) 30 ml PO Q6H PRN PRN Reason: Constipation Stop: 01/10/24 18:24 Magnesium Oxide (Magnesium Oxide 400 Mg Tab) 400 mg PO BID [facility] Stop: 01/27/24 08:59 Last Admin: 12/31/23 08:41 Dose: 400 mg Metoprolol Succinate (Metoprolol Succ 50mg Ext Rel Tab) 100 mg PO BID [facility] Stop: 01/14/24 20:59 Last Admin: 12/31/23 11:27 Dose: Not Given Miconazole Nitrate (Miconazole Nitrate Powder 85 Gm) 1 appln EXT BID [facility] Stop: 01/05/24 00:29 Last Admin: 12/31/23 08:40 Dose: 1 appln Miconazole Nitrate (Miconazole Nitrate 2% Cr 30 Gm Tube) 1 appln EXT BID [facility] Stop: 01/19/24 20:59 Last Admin: 12/31/23 08:42 Dose: 1 appln Miscellaneous (Remove Lidoderm Patch) 1 each N/A DAILY@2100 [facility] Stop: 01/08/24 20:59 Last Admin: 12/30/23 20:15 Dose: 1 each Ondansetron HCl (Ondansetron Inj 2 Mg/Ml 2 Ml Vial) 4 mg IV Q6H PRN PRN Reason: Nausea And Vomiting Stop: 01/26/24 12:29 Last Admin: 12/28/23 17:04 Dose: 4 mg Oxycodone/Acetaminophen (Oxycodone/Acetaminophen 10-325 Tab) 1 tab PO Q4H PRN PRN Reason: Pain Stop: 01/13/24 10:09 Last Admin: 12/31/23 08:39 Dose: 1 tab Polyethylene Glycol (Polyethylene (Miralax) 17 Gm Pack) 17 gm PO DAILY PRN PRN Reason: Constipation Stop: 01/04/24 14:19 Last Admin: 12/16/23 08:58 Dose: 17 gm Potassium Chloride (Potassium Chloride Crtab 20 Meq Tabcr) 20 meq PO BID [facility] Stop: 01/23/24 20:59 Last Admin: 12/31/23 08:39 Dose: 20 meq
--- NOTE | 2023-12-31 14:35 | XRay Report ---
SINGLE VIEW CHEST CLINICAL HISTORY: Dyspnea. FINDINGS: An AP, portable, upright chest radiograph is compared to study dated 12/05/2023. The heart is enlarged noting atherosclerotic calcification of the thoracic aorta. Pulmonary vascular congestion h as improved as compared to 12/05/2023. Chronic interstitial thickening similar to previous. There is mi nimal bibasilar atelectasis. The lungs and pleural spaces are otherwise clear. No pneumothorax is see n. The skeletal structures are osteopenic. The bony thorax is grossly intact. IMPRESSION: 1. Cardiomegaly without radiographic evidence of congestive failure. 2. No airspace consolidation or pleural effusion is identified. ACT 112: Negative or not required by law. Electronically signed by: Leland Tate M.D. 12/31/2023 2:33 PM
--- NOTE | 2023-12-31 16:29 | Cardiology Progress Note ---
Date of Service December 31, 2023 Assessment & Plan (1) Atrial fibrillation with rapid ventricular response: (2) Acute on chronic heart failure with preserved ejection fraction: (3) Gross hematuria: (4) Aortic stenosis: Plan IMPRESSION: Hospital day 24 63-year-old female with body mass index of 68 kg/m, chronic lymphedema, and paroxysmal atrial fibrillation with borderline tachycardia-bradycardia syndrome. She had previously been maintained in sinus rhythm on sotalol 40 mg twice daily which was held on presentation due to acute kidney injury. She presented with upper respiratory complaint symptoms and findings of SARS-CoV-2 infection. PLAN: Persistent atrial fibrillation: She developed Atrial fibrillation with rapid ventricular response along with acute kidney injury prompting discontinuation of low-dose sotalol. Initially IV diltiazem utilized for rate control, then a trial of amiodarone had been initiated, but patient failed to convert to NSR Changed to rate control strategy. Metoprolol titrated to 100 mg BID and digoxin added with IV bolus/load. Digoxin reduced to 0.125 mg MWF due to renal dysfunction (12/25). HR's have improved and now remain around the low 100s bpm, but higher with minimal exertion Pt felt to be high risk for complication with cardioversion. Continue Eliquis for stroke prophylaxis. Acute on chronic diastolic CHF: Patient remains markedly volume overloaded with significant lower extremity edema. Poor outputs overnight. Creatinine increased from 1.3 to 1.6 >>1.4 >>1.8>>1.87>>2.2.-->1.96 -->1.82-->2.03 -->2.3-->2.7 milligrams per deciliter Diuretics including IV Bumex and metolazone therefore has been held. Nephrology input noted and appreciated. Continue to observe off of diuretic therapy. Elevate legs, compression wraps to lower extremities as tolerated. Gross hematuria: Improved. Recent left ureter stent 11/08/2023. Outpatient follow-up recommended by urology with plans for repeat cystoscopy in the future. Mild aortic stenosis: New per inpatient echo. Will follow-up as an outpatient. This chart was completed in part utilizing Speech Voice Recognition Software. Grammatical errors, random word insertions, pronoun errors, and incomplete sentences are an occasional consequence of this system due to software limitations, ambient noise, and hardware issues. Any formal questions or concerns about the content, text, or information contained within the body of this dictation should be directly addressed to the provider for clarification. Admission and Anticipated Discharge Date Admission Date: December 05, 2023 Subjective Patient seen in cardiology follow-up. Looks like she has more energy today. Atrial fibrillation at 114 bpm noted telemetry at the time my assessment. Danielle catheter remains in place without gross hematuria. Chronic lymphedema pattern to the legs, but her gross swelling which was present a week ago is improved. Physical Exam Constitutional: + ill appearing and + obese; no acute di stress Respiratory: no labored breathing Cardiovascular: Rate/Rhythm: + tachycardic and + irregularly irregular Heart Sounds: no murmur Extremities: + edema (Lymphedema pattern, 1+ bilateral lower extremity edema) Gastrointestinal (Abdomen): normal bowel sounds, soft, nontender, no hepatosplenomegaly Neurologic: PERRL, EOMI, accommodation nl, no face palsy, no dysarthria Results & Data Vital Signs (Past 12 Hours) Vital Signs Temp Pulse Resp BP Pulse Ox O2 Del Method 12/31/23 15:33 36.4 C L 92 H 18 133/70 96 Room Air 12/31/23 11:50 36.9 C 77 18 111/66 97 Room Air 12/31/23 10:00 Room Air 12/31/23 08:32 36.5 C 102 H 18 81/49 L 95 Room Air
[2024-01-01 03:32] LABS: Appearance Urine Turbid (Clear); Bacteria Urine Automated Negative (Negative); Blood Urine 3+ (Negative); Cast Urine Automated 0 /lpf (0-5); Color Urine Orange; Epithelial Cell Urine Auto >30 /lpf (0-5); Glucose Urine UA Negative (Negative); Ketones Urine Negative (Negative); Leukocyte Esterase Urine 3+ (Negative); Nitrite Urine Negative (Negative); Protein Urine 2+ (Negative); Specific Gravity Urine 1.016 (1.000-1.030); Urobilinogen Urine Negative (Negative); WBC Urine Automated >30 /hpf (0-5); pH Urine 5.5 (4.5-7.5)
[2024-01-01 03:42] LABS: Bilirubin Urine 1+ (Negative)
[2024-01-01 03:53] LABS: RBC Urine Automated >30 /hpf (0-4)
--- NOTE | 2024-01-01 07:20 | Ultrasound Report ---
RENAL ULTRASOUND HISTORY: Acute renal failure worsening renla functoin; hx L>R stones COMPARISON: Ultrasound 11/12/2023 FINDINGS: Right kidney: 10.7 cm. Nonobstructing calculi of the right kidney are redemonstrated measuring up to approximately 9 mm. No hydronephrosis. Normal corticomedullary differentiation and cortical thickness . Left kidney: 10.9 cm. Nonobstructing calculi and left ureteral stent is noted. Left kidney are redemo nstrated measuring up to approximately 8 mm. No hydronephrosis. Normal corticomedullary differentiati on and cortical thickness. Bladder: Partially decompressed bladder with mild wall thickening. Ureteral jets not visualized. The study is overall limited secondary to patient body habitus and movement. IMPRESSION: 1. Nonobstructing bilateral nephrolithiasis without hydronephrosis. 2. Left ureteral stent in place. ACT 112: Negative or not required by law. Electronically signed by: Harsh Olivarez M.D. 01/01/2024 7:19 AM
--- NOTE | 2024-01-01 09:20 | Nephrology Progress Note ---
Date of Service January 01, 2024 Assessment & Plan (1) FLETCHER (acute kidney injury): Plan: Her baseline creatinine was 1.0 prior to hospital admission; however she's had FLETCHER since arrival w/ waxing and waning renal function. Was 1.7 on arrival creatinine on december 05 and peaked at 2.7 on 12/31, highest value this admission. improving today to 2.1 w/ holding diuretics/ supportive care. My partners had last seen her with creatinine 1.7 on 12/24; started her on aggressive bumex/metolazone that day, which was stopped late in the day on 12/28. creatinien continued to climb for a few days after diuretics stopped. renal u/s, UA, CXR all reassuring She has FLETCHER in the setting of AF w/ RVR and significant cardiac pauses. remains in AF but rate control a bit more challenging past 24 hrs than previously. Notable edema on exam but hard to assess fluid status meaningfully w/ her body habitus. weight approximately stable on standing scale checks; has been on RA consistently for several days. >>she has been having extended period of hypotension, including most of yesterday late afternoon overnight into today >> this will worsen renal function. has been on RA consistently for several days -continue daily standing weight -continue 1.5 L FR and < 2 gm daily sodium diet -continue to hold diuretics > but likely to resume lower dose in AM -put K supplements on hold >maintain SBP >100 generally (2) Ureteral stent present: Plan: h/o recurrent Kidney stone and S/p Ureteral Stent placement about 2 weeks bag and currently has gross hematuria. Urology following. She does not want hernandez. No acute findings on the CT report as per urology Admission and Anticipated Discharge Date Admission Date: December 05, 2023 Subjective seen on rounds at about 1400. in room. pt c/o pain from "butt sores" and of back, hip pain. no sob, no n/v. no comment on edema Review of Systems 2 Review of Systems: All systems reviewed & are unremarkable except as noted in Subjective Physical Exam 2 Constitutional: well developed (sitting up in chair on RA), + morbidly obese, + physical limitations and cooperative; no acute distress Eyes: EOM intact bilaterally ENMT: Ears: no external ear abnormality Nose: no external nose abnormality Mouth: + dry oral mucous membranes Neck: no nuchal rigidity Respiratory: normal respiratory effort (sitting up in chair on RA) A uscultation: lungs clear to auscultation bilaterally and + diminished lung sounds Cardiovascular: Rate/Rhythm: + irregularly irregular (HS distant) E xtremities: + edema (2-3+ distal BLE edema) Gastrointestinal (Abdomen): Inspection/Auscultation: normal bowel sounds P ercussion/Palpation: abdomen soft; abdomen nontender Musculoskeletal: Extremities: strength 5/5 throughout Skin: no rashes, warm and dry Psychiatric: Orientation: alert and oriented x 3 Results & Data Vital Signs (Past 12 Hours) Vital Signs Temp Pulse Pulse Resp BP BP Pulse Ox 01/01/24 07:42 36.6 C 90 20 178/84 H 92 01/01/24 04:10 36.8 C 128 H 20 115/70 12/31/23 23:00 94 H 12/31/23 22:50 36.7 C 115 H 16 122/60 96 O2 Del Method 01/01/24 07:42 Room Air 01/01/24 04:10 Room Air 12/31/23 23:00 12/31/23 22:50 Room Air Laboratory Results 12/31/23 06:01 01/01/24 09:17 Diagnostic Findings renal u/s > BL stones; stent OK; no hydro CXR no vascular/pulmonary congestion or effusion
[2024-01-01 09:50] LABS: BUN Creatinine Ratio 24.5 (10-20); Calcium 8.6 mg/dl (8.6-10.3); Creatinine Clr Calc Pharmacy 44.6 ml/min; Est GFR (African American) 28.8 ml/min; Est GFR (Non-African American) 24.9 ml/min; Potassium 5.1 mmol/L (3.5-5.1)
--- NOTE | 2024-01-01 13:13 | Hospitalist Progress Note ---
Date of Service January 01, 2024 Assessment & Plan (1) Atrial fibrillation with rapid ventricular response: (2) Elevated troponin: (3) COVID-19: (4) Hypoxia: (5) Abdominal pain: (6) Urolithiasis: (7) Generalized weakness: (8) Tachycardia-bradycardia syndrome: (9) Hypertension: (10) HLD (hyperlipidemia): (11) Hypothyroidism: (12) Morbid obesity with BMI of 60.0-69.9, adult: Plan Ms. Cox is a 63 year old woman with PMHx significant for paroxysmal atrial fibrillation anticoagulated on Eliquis, tachybradycardia syndrome refusing pacemaker, HTN, HLD, hypothyroidism, obesity, obstructive uropathy s/p L uretal stent placement on 11/08 admitted with R sided abdominal pain, FLETCHER and atrial fibrillation with RVR in the setting of a COVID infection and UTI. Patient's course complicated by ongoing atrial fibrillation. Patient is now on oral digoxin and still diuresing, though minimally net negative; however, renal function initially continued to downtrend. Course complicated by worsening edema upon cessation of IV lasix as well as difficult to control RVR. Acute on chronic heart failure with preserved ejection fraction Examination reveals severe bilateral pitting edema. Echo 2021- EF 65-70% Nephrology on board; recommend Bumex 4 mg Q8 along with metolazone Appreciate cardiology input and recommendation Has been diuresed enough with decreasing swelling of the legs and no more weeping of fluid from the legs FR to 1.5L Has been having enough diuresis with cumulative negative balance of 17 L We will continue the current dose of diuretics and monitor electrolytes and kidney function Blood pressure remains on the lower side Clinically a little better with a cumulative fluid loss of 17,680 mL Diuretics are on hold since yesterday- 12/28/2023 Making out reasonable amount of urine even without diuretics for the last 2 days Chest x-ray did not show any evidence of CHF Diuretics remain on hold as per child care giver Will monitor PRP 2-3+ edema bilaterally-complicated by heart failure and also morbid obesity and inability to ambulate With weeping from the lower leg especially on the right side and some redness Without any significant infection Has been getting high doses of diuretics with minimal improvement-diuretics on hold now Senior Research Engineer on board to monitor kidney function and doses of diuretics Bilateral leg swelling is persistent Left knee pain and pain in the right hip over greater trochanteric area, No acute arthritis Pain improving with local diclofenac cream Complains more pain involving the right hip and the back and also left knee area Will increase oxycodone 10/325 every 4 hourly for better pain control Left knee pain is better controlled Atrial fibrillation with rapid ventricular response *improved Complicating acute on chronic heart failure as above Presented with R abd pain, found to be in a fib with RVR EKG on admission personally reviewed: A-fib RVR, rate 143 Prior to admission, she was on sotalol. Patient was then started on amiodarone without successful cardioversion; was stopped on December 12, 2023. Currently on metoprolol 100 mg twice daily and digoxin Rate remains elevated at 109 without any other cardiac symptoms Rate seems to be controlled today with seems to be within normal range at 88 today Rate remains on the upper side at around 96 Heart rate is elevated at 96/min FLETCHER (acute kidney injury) Likely 2/2 a fib RVR and infection Cr: 1.6 on admission, Initially received IV fluids with improvement in creatinine. Monitor fluid balance Avoid contrast/nephrotoxic meds Monitor renal function, continue to trend CMP Nephrology reconsulted 12/22 -Bumex 4mg q8h -Metolazone 5mg BID Creatinine remains elevated at 1.82 but seems to be minimally improving with BUN at 48 Will continue current diuresis and monitor kidney function and electrolytes Creatinine remains stable with potassium and magnesium on the lower side Will continue the oral supplement Creatinine has been improving on holding of diuretics Elevated troponin *resolved Demand ischemia Initial troponin 54. Downtrended to 41.3 EKG with noted atrial fibrillation with RVR Likely elevated secondary to demand ischemia from rapid A-fib, doubt ACS Tachycardia-bradycardia syndrome *stable History of tachybrady syndrome. Follows with cardiology and EP. In past has refused pacemaker Monitor on telemetry Hypertension Hold home losartan and HCTZ with current FLETCHER Monitor BPs Currently on metoprolol 100mg BID Acute complicated UTI 2/2 e coli WBC elevated Urinalysis positive infection. Urine culture growing E. coli; sensitive to ceftriaxone Continue Rocephin on 12/15, EOT tentatively 12/29 for 14 day regimen iso stents Discussed with LYDIA Tucker with Urology: Recommended to l keep hernandez and follow up OP COVID-19 *resolved Acute hypoxic respiratory failure, resolved Pt with sore throat, cough, congestion that started 3-4 days prior to arrival COVID-19 positive on 12/04/22, enhanced precautions completed, completed dex course Chest xray with no acute changes Obstructive uropathy s/p stent placement 10/2023 Patient with reported right-sided abdominal pain that started morning of admission. 12/04/2023 (day before admission), CT abdomen pelvis noted LEFT-sided ureteral stent in place, bilateral intrarenal stones, proximal left ureteral stone, diverticulosis with no signs of diverticulitis. No acute appendicitis or bowel obstruction. No evidence of visceral or intra-abdominal injury. No acute fracture. Pain control Urology consult placed for hematuria (see above) but appreciate recs for this as well -pt now requesting to have stents removed but needs HR under control -Plan to discuss with urology once A Fib is controlled: plan for OP follow up, keep hernandez in place Generalized weakness Ambulates with cane at baseline. Increased generalized weakness over the past several days. Likely secondary to underlying infection with COVID-19 12/04/2023: CT head: No acute intracranial abnormality Fall precautions PT/OT eval-recommending home with s/o support and HH services -Patient willing to consider HH services or rehab if covered, will discuss with CM Has been getting physical therapy and recommended rehab Will need to continue physical therapy HLD (hyperlipidemia) Continue atorvastatin Hypothyroidism Continue levothyroxine Morbid obesity with BMI of 60.0-69.9, adult BMI: 68.3 Encourage weight loss Pt ordered bariatric bed for better comfort Constipation Docusate sodium 100mg BID PRN Miralax ordered PRN milk of magnesia Diet: HH DVT Prophylaxis: On Eliquis CODE STATUS: Full code Dispo: PT/OT now with rehab recommendations. Continues to be hospitalized with atrial fibrillation RVR, FLETCHER requiring close monitoring. Discussed with at bedside. Answered questions/queries. Not yet ready to be discharged Please note the above document was generated using voice recognition software. It may contain grammatical, syntax or spelling errors. Any formal questions or concerns about the content, text or information contained within the body of this dictation should be directly addressed to the provider for clarification Admission and Anticipated Discharge Date Admission Date: December 05, 2023 Subjective 12/27/2023 The patient was seen and examined in telemetry unit in presence of the She has been complaining of back pain and has been out of bed on a chair and does not like to go back to the bed Denies any shortness of breath, chest pain or palpitation Has been telling that the swelling in the legs have improved without any more weeping of fluid 12/28/2023 The patient was seen and examined in telemetry unit in the presence of the She complains to have more swelling of the left leg today with some redness and weeping from the lower leg Denies any chest pain and her palpitation Also complains some left knee pain 12/29/2023 The patient was seen and examined in telemetry unit in presence of the She has been feeling a little better Complains of pain in the right hip and the left knee pain is better Swelling of the legs seems to be little better but has redness and minimal weeping specially on the left side 12/30/2023 The patient was seen and examined in telemetry unit She has been complaining of pain in the right hip area and also left knee Denies any shortness of breath Leg swelling remains the same 12/31/2023 The patient was seen and examined in telemetry unit in presence of the She has been feeling a little better today and looks brighter Denies any shortness of breath Still has pain in the right side of the hip and left knee pain is better 01/01/2024 The patient was seen and examined in telemetry unit She has been feeling better but still complains of pain in the right more than left hip area Denies any chest pain, palpitation or shortness of breath Leg swelling seems to be stable Review of Systems Review of Systems: All systems reviewed and are unremarkable except as noted below Musculoskeletal: Back pain and right hip pain Physical Exam Physical Exam: Sitting on a chair with some distress due to ongoing pain at the back Constitutional: well developed, well nourished, + ill appearing and + morbidly obese Eyes: PERRL, conjunctivae normal, anicteric sclerae ENMT: external ear and nose normal, oropharynx normal Neck: trachea midline, no thyromegaly Respiratory: + respiratory distress Auscultation: + diminished lung sounds and + crackles (Minimal crackles at the bases) Cardiovascular: Rate/Rhythm: regular rate, regular rhythm and + tachycardic Heart Sounds: normal S1 and normal S2; no murmur Extremities: + edema (2+ edema bilaterally) Gastrointestinal (Abdomen): Inspection/Auscultation: + abdomen distended and normal bowel sounds Percussion/Palpation: abdomen soft; abdomen nontender Musculoskeletal: Difficult to examine for any acute arthritis but clinically no acute arthritis Neurologic: normal touch/pain/proprioception and moves all extremities; no focal motor deficits Lymphatic: no cervical or axillary lymphadenopathy Results & Data Results & Data Vital Signs (Past 12 Hours) Vital Signs Temp Pulse Pulse Resp BP BP Pulse Ox 01/01/24 11:53 36.5 C 96 H 18 106/58 L 90 01/01/24 09:39 103 H 01/01/24 08:00 01/01/24 07:42 36.6 C 90 20 178/84 H 92 01/01/24 04:10 36.8 C 128 H 20 115/70 O2 Del Method 01/01/24 11:53 Room Air 01/01/24 09:39 01/01/24 08:00 Room Air 01/01/24 07:42 Room Air 01/01/24 04:10 Room Air Laboratory Results BMP 01/01/24 09:17 Sodium 134 L Potassium 5.1 Chloride 94 L Carbon Dioxide 28 BUN 51 H Creatinine 2.08 H D Glucose 142 H Calcium 8.6 Urine 01/01/24 Range/Units 03:10 Urine Color [place] Urine Appearance Turbid A (Clear) Urine pH 5.5 (4.5-7.5) Ur Specific [place] 1.016 (1.000-1.030) Urine Protein 2+ H (Negative) Urine Glucose (UA) Negative (Negative) Medications Administered Current Inpatient Medications Acetaminophen (Acetaminophen 500 Mg Tab) 1,000 mg PO Q8H PRN PRN Reason: Pain or Fever Stop: 01/04/24 14:19 Last Admin: 12/25/23 20:44 Dose: 1,000 mg Apixaban (Apixaban 5 Mg Tablet) 5 mg PO BID [place] Stop: 01/04/24 20:59 Last Admin: 01/01/24 08:19 Dose: 5 mg Atorvastatin Calcium (Atorvastatin 40 Mg Tab) 40 mg PO DAILY [place]JEET Stop: 01/05/24 08:59 Last Admin: 01/01/24 08:19 Dose: 40 mg Diclofenac Sodium (Diclofenac Sod 1% Gel 100 Gm Tube) 4 gm EXT Q6H PRN; Protocol PRN Reason: knee pain Stop: 01/04/24 14:19 Last Admin: 12/20/23 19:58 Dose: 4 gm Diclofenac Sodium (Diclofenac Sod 1% Gel 100 Gm Tube) 4 gm EXT BID [facility]; Protocol Stop: 01/27/24 10:59 Last Admin: 01/01/24 08:21 Dose: 4 gm Digoxin (Digoxin 0.125 Mg Tab) 0.125 mg PO MoWeFr@1600 [facility] Stop: 01/26/24 15:59 Last Admin: 12/31/23 17:25 Dose: 0.125 mg Docusate Sodium (Docusate Sodium 100 Mg Cap) 100 mg PO BID [facility] Stop: 01/10/24 20:59 Last Admin: 01/01/24 08:19 Dose: 100 mg Ergocalciferol (Ergocalciferol 1250 Mcg (50,000 Units) Cap) 1,250 mcg PO We@0900 [facility] Stop: 02/04/24 08:59 Gabapentin (Gabapentin 300 Mg Cap) 300 mg PO HS [facility] Stop: 01/04/24 20:59 Last Admin: 12/31/23 20:49 Dose: 300 mg Guaifenesin/Codeine Phosphate (Guaifenesin/Codeine 100mg/10mg 5ml Udc) 5 ml PO Q6H PRN PRN Reason: Cough Stop: 01/21/24 16:18 Hydroxyzine HCl (Hydroxyzine Hcl 25 Mg Tab) 25 mg PO Q6H PRN PRN Reason: Anxiety/Insomnia Stop: 01/15/24 16:00 Last Admin: 12/31/23 20:48 Dose: 25 mg Bumetanide 4 mg/ Syringe 16 mls @ 4 mls/min IV Q8H [facility] Stop: 01/23/24 09:29 Last Admin: 12/28/23 17:04 Dose: 4 mls/min Promethazine HCl 12.5 mg/ (Sodium Chloride) 50.5 mls @ 202 mls/hr IV Q6H PRN PRN Reason: Nausea And Vomiting Stop: 01/25/24 21:27 Last Infusion: 12/27/23 00:39 Dose: Infused Levothyroxine Sodium (Levothyroxine Sodium 100 Mcg Tablet) 100 mcg PO DAILYBB [facility] Stop: 01/05/24 06:29 Last Admin: 01/01/24 05:28 Dose: 100 mcg Lidocaine (Lidocaine 5% 1 Patch) 1 patch TD QAM [facility] Stop: 01/08/24 09:14 Last Admin: 01/01/24 08:20 Dose: 1 patch Magnesium Hydroxide (Magnesium Hydroxide Susp 30 Ml Udc) 30 ml PO Q6H PRN PRN Reason: Constipation Stop: 01/10/24 18:24 Magnesium Oxide (Magnesium Oxide 400 Mg Tab) 400 mg PO BID [facility] Stop: 01/27/24 08:59 Last Admin: 01/01/24 08:19 Dose: 400 mg Metoprolol Succinate (Metoprolol Succ 50mg Ext Rel Tab) 100 mg PO BID [facility] Stop: 01/14/24 20:59 Last Admin: 01/01/24 08:20 Dose: 100 mg Miconazole Nitrate (Miconazole Nitrate Powder 85 Gm) 1 appln EXT BID [facility] Stop: 01/05/24 00:29 Last Admin: 01/01/24 08:21 Dose: 1 appln Miconazole Nitrate (Miconazole Nitrate 2% Cr 30 Gm Tube) 1 appln EXT BID [facility] Stop: 01/19/24 20:59 Last Admin: 01/01/24 08:20 Dose: 1 appln Miscellaneous (Remove Lidoderm Patch) 1 each N/A DAILY@2100 [facility] Stop: 01/08/24 20:59 Last Admin: 12/31/23 20:48 Dose: 1 each Ondansetron HCl (Ondansetron Inj 2 Mg/Ml 2 Ml Vial) 4 mg IV Q6H PRN PRN Reason: Nausea And Vomiting Stop: 01/26/24 12:29 Last Admin: 12/28/23 17:04 Dose: 4 mg Oxycodone/Acetaminophen (Oxycodone/Acetaminophen 10-325 Tab) 1 tab PO Q4H PRN PRN Reason: Pain Stop: 01/13/24 10:09 Last Admin: 01/01/24 08:26 Dose: 1 tab Polyethylene Glycol (Polyethylene (Miralax) 17 Gm Pack) 17 gm PO DAILY PRN PRN Reason: Constipation Stop: 01/04/24 14:19 Last Admin: 12/16/23 08:58 Dose: 17 gm Potassium Chloride (Potassium Chloride Crtab 20 Meq Tabcr) 20 meq PO BID [facility] Stop: 01/23/24 20:59 Last Admin: 01/01/24 08:20 Dose: 20 meq
[2024-01-02 08:20] LABS: Basophils # (auto) 0.02 K/uL (0.00-0.20); Basophils % (auto) 0.4 %; Eosinophils # (auto) 0.22 K/uL (0.00-0.50); Hematocrit (blood only) 26.6 % (37.0-47.0); Hemoglobin 8.2 g/dl (12.0-16.0); Immature Granulocytes # (auto) 0.04 K/uL (0.01-0.20); Immature Granulocytes % (auto) 0.7 %; Lymphocytes # (auto) 1.93 K/uL (1.20-3.40); Lymphocytes % (auto) 34.8 %; Mean Corpuscular Hemoglobin 27.3 pg (25.0-34.0); Mean Corpuscular Hgb Conc 30.8 g/dL (32.0-36.0); Mean Corpuscular Volume 88.7 fL (80.0-100.0); Mean Platelet Volume 9.5 fL (9.4-12.4); Monocytes # (auto) 0.85 K/uL (0.11-0.59); Monocytes % (auto) 15.3 %; Neutrophils # (auto) 2.49 K/uL (1.40-6.50); Neutrophils % (auto) 44.8 %; Nucleated RBC # (auto) 0.03 K/uL (0.00-0.12); Nucleated RBC % (auto) 0.5 %; Platelet Count 302 K/uL (130-400); RDW Coefficient of Variation 17.9 % (11.5-14.5); RDW Standard Deviation 56.6 fL (36.4-46.3); White Blood Count 5.55 K/ul (4.8-10.8)
[2024-01-02 08:35] LABS: BUN Creatinine Ratio 29.9 (10-20); Calcium 8.2 mg/dl (8.6-10.3); Creatinine Clr Calc Pharmacy 56.6 ml/min; Est GFR (African American) 38.4 ml/min; Est GFR (Non-African American) 33.2 ml/min; Potassium 5.1 mmol/L (3.5-5.1)
--- NOTE | 2024-01-02 12:26 | Hospitalist Progress Note ---
Date of Service January 02, 2024 Assessment & Plan (1) Atrial fibrillation with rapid ventricular response: (2) Elevated troponin: (3) COVID-19: (4) Hypoxia: (5) Abdominal pain: (6) Urolithiasis: (7) Generalized weakness: (8) Tachycardia-bradycardia syndrome: (9) Hypertension: (10) HLD (hyperlipidemia): (11) Hypothyroidism: (12) Morbid obesity with BMI of 60.0-69.9, adult: Plan Ms. Cox is a 63 year old woman with PMHx significant for paroxysmal atrial fibrillation anticoagulated on Eliquis, tachybradycardia syndrome refusing pacemaker, HTN, HLD, hypothyroidism, obesity, obstructive uropathy s/p L uretal stent placement on 11/08 admitted with R sided abdominal pain, FLETCHER and atrial fibrillation with RVR in the setting of a COVID infection and UTI. Patient's course complicated by ongoing atrial fibrillation. Patient is now on oral digoxin and still diuresing, though minimally net negative; however, renal function initially continued to downtrend. Course complicated by worsening edema upon cessation of IV lasix as well as difficult to control RVR. Acute on chronic heart failure with preserved ejection fraction Examination reveals severe bilateral pitting edema. Echo 2021- EF 65-70% Nephrology on board; recommend Bumex 4 mg Q8 along with metolazone Appreciate cardiology input and recommendation Has been diuresed enough with decreasing swelling of the legs and no more weeping of fluid from the legs FR to 1.5L Has been having enough diuresis with cumulative negative balance of 17 L We will continue the current dose of diuretics and monitor electrolytes and kidney function Blood pressure remains on the lower side Clinically a little better with a cumulative fluid loss of 17,680 mL Diuretics are on hold since yesterday- 12/28/2023 Making out reasonable amount of urine even without diuretics for the last 2 days Chest x-ray did not show any evidence of CHF Diuretics remain on hold as per academic advisement director Kidney function has been improving of diuretics 2-3+ edema bilaterally-complicated by heart failure and also morbid obesity and inability to ambulate With weeping from the lower leg especially on the right side and some redness Without any significant infection Has been getting high doses of diuretics with minimal improvement-diuretics on hold now 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 to monitor kidney function and doses of diuretics Bilateral leg swelling is persistent No shortness of breath at rest Left knee pain and pain in the right hip No acute arthritis Pain improving with local diclofenac cream Complains more pain involving the right hip and the back and also left knee area Will increase oxycodone 10/325 every 4 hourly for better pain control Left knee pain is better controlled Has had injection in the left knee joint in the past and wants to know if that can be given while she is in the hospital Pain over the skin abrasion over back of thighs due to prolonged sitting and pressure over that area Atrial fibrillation with rapid ventricular response *improved Complicating acute on chronic heart failure as above Presented with R abd pain, found to be in a fib with RVR EKG on admission personally reviewed: A-fib RVR, rate 143 Prior to admission, she was on sotalol. Patient was then started on amiodarone without successful cardioversion; was stopped on December 12, 2023. Currently on metoprolol 100 mg twice daily and digoxin Rate remains elevated at 109 without any other cardiac symptoms Rate seems to be controlled today with seems to be within normal range at 88 today Rate remains on the upper side at around 96 Heart rate is elevated at 96/min FLETCHER (acute kidney injury) Likely 2/2 a fib RVR and infection Cr: 1.6 on admission, Initially received IV fluids with improvement in creatinine. Monitor fluid balance Avoid contrast/nephrotoxic meds Monitor renal function, continue to trend CMP Nephrology reconsulted 12/22 -Bumex 4mg q8h -Metolazone 5mg BID Creatinine remains elevated at 1.82 but seems to be minimally improving with BUN at 48 Will continue current diuresis and monitor kidney function and electrolytes Creatinine remains stable with potassium and magnesium on the lower side Will continue the oral supplement Creatinine has been improving on holding of diuretics Creatinine has been improving Elevated troponin *resolved Demand ischemia Initial troponin 54. Downtrended to 41.3 EKG with noted atrial fibrillation with RVR Likely elevated secondary to demand ischemia from rapid A-fib, doubt ACS Tachycardia-bradycardia syndrome *stable History of tachybrady syndrome. Follows with cardiology and EP. In past has refused pacemaker Monitor on telemetry Hypertension Hold home losartan and HCTZ with current FLETCHER Monitor BPs Currently on metoprolol 100mg BID Acute complicated UTI 2/2 e coli WBC elevated Urinalysis positive infection. Urine culture growing E. coli; sensitive to ceftriaxone Continue Rocephin on 12/15, EOT tentatively 12/29 for 14 day regimen iso stents Discussed with LYDIA Tucker with Urology: Recommended to l keep hernandez and follow up OP COVID-19 *resolved Acute hypoxic respiratory failure, resolved Pt with sore throat, cough, congestion that started 3-4 days prior to arrival COVID-19 positive on 12/04/22, enhanced precautions completed, completed dex course Chest xray with no acute changes Obstructive uropathy s/p stent placement 10/2023 Patient with reported right-sided abdominal pain that started morning of admission. 12/04/2023 (day before admission), CT abdomen pelvis noted LEFT-sided ureteral stent in place, bilateral intrarenal stones, proximal left ureteral stone, diverticulosis with no signs of diverticulitis. No acute appendicitis or bowel obstruction. No evidence of visceral or intra-abdominal injury. No acute fracture. Pain control Urology consult placed for hematuria (see above) but appreciate recs for this as well -pt now requesting to have stents removed but needs HR under control -Plan to discuss with urology once A Fib is controlled: plan for OP follow up, keep hernandez in place Generalized weakness Ambulates with cane at baseline. Increased generalized weakness over the past several days. Likely secondary to underlying infection with COVID-19 12/04/2023: CT head: No acute intracranial abnormality Fall precautions PT/OT eval-recommending home with s/o support and HH services -Patient willing to consider HH services or rehab if covered, will discuss with CM Has been getting physical therapy and recommended rehab Will need to continue physical therapy HLD (hyperlipidemia) Continue atorvastatin Hypothyroidism Continue levothyroxine Morbid obesity with BMI of 60.0-69.9, adult BMI: 68.3 Encourage weight loss Pt ordered bariatric bed for better comfort Constipation Docusate sodium 100mg BID PRN Miralax ordered PRN milk of magnesia Diet: HH DVT Prophylaxis: On Eliquis CODE STATUS: Full code Dispo: PT/OT now with rehab recommendations. Continues to be hospitalized with atrial fibrillation RVR, FLETCHER requiring close monitoring. Discussed with at bedside. Answered questions/queries. Not yet ready to be discharged Please note the above document was generated using voice recognition software. It may contain grammatical, syntax or spelling errors. Any formal questions or concerns about the content, text or information contained within the body of this dictation should be directly addressed to the provider for clarification Admission and Anticipated Discharge Date Admission Date: December 05, 2023 Subjective 12/27/2023 The patient was seen and examined in telemetry unit in presence of the She has been complaining of back pain and has been out of bed on a chair and does not like to go back to the bed Denies any shortness of breath, chest pain or palpitation Has been telling that the swelling in the legs have improved without any more weeping of fluid 12/28/2023 The patient was seen and examined in telemetry unit in the presence of the She complains to have more swelling of the left leg today with some redness and weeping from the lower leg Denies any chest pain and her palpitation Also complains some left knee pain 12/29/2023 The patient was seen and examined in telemetry unit in presence of the She has been feeling a little better Complains of pain in the right hip and the left knee pain is better Swelling of the legs seems to be little better but has redness and minimal weeping specially on the left side 12/30/2023 The patient was seen and examined in telemetry unit She has been complaining of pain in the right hip area and also left knee Denies any shortness of breath Leg swelling remains the same 12/31/2023 The patient was seen and examined in telemetry unit in presence of the She has been feeling a little better today and looks brighter Denies any shortness of breath Still has pain in the right side of the hip and left knee pain is better 01/01/2024 The patient was seen and examined in telemetry unit She has been feeling better but still complains of pain in the right more than l eft hip area Denies any chest pain, palpitation or shortness of breath Leg swelling seems to be stable 01/02/2024 The patient was seen and examined in telemetry unit in presence of the She has been complaining of more pain at the back of the thighs and bottom She has been on her back for hours and does not want to be in bed and does not want to stay in the positions Denies any chest pain, palpitation or shortness of breath Her legs remains edematous Physical Exam Physical Exam: Sitting on a chair with some distress due to ongoing pain at the back Constitutional: well developed, well nourished, + ill appearing and + morbidly obese Eyes: PERRL, conjunctivae normal, anicteric sclerae ENMT: external ear and nose normal, oropharynx normal Neck: trachea midline, no thyromegaly Respiratory: + respiratory distress Auscultation: + diminished lung sounds and + crackles (Minimal crackles at the bases) Cardiovascular: Rate/Rhythm: regular rate, regular rhythm and + tachycardic Heart Sounds: normal S1 and normal S2; no murmur Extremities: + edema (2+ edema bilaterally) Gastrointestinal (Abdomen): Inspection/Auscultation: + abdomen distended and normal bowel sounds Percussion/Palpation: abdomen soft; abdomen nontender Musculoskeletal: Right knee pain with movement. Seems to be chronic Neurologic: normal touch/pain/proprioception and moves all extremities; no focal motor deficits Lymphatic: no cervical or axillary lymphadenopathy Results & Data Results & Data Vital Signs (Past 12 Hours) Vital Signs Temp Pulse Pulse Resp BP BP Pulse Ox 01/02/24 12:14 36.7 C 95 H 16 115/71 96 01/02/24 09:20 101 H 138/83 01/02/24 08:00 36.6 C 115 H 24 98/57 L 95 01/02/24 07:34 86 01/02/24 03:30 36.7 C 66 16 119/76 93 O2 Del Method 01/02/24 12:14 Room Air 01/02/24 09:20 01/02/24 08:00 Room Air 01/02/24 07:34 01/02/24 03:30 Room Air Laboratory Results Short CBC 01/02/24 Range/Units 07:39 WBC 5.55 (4.8-10.8) K/ul Hgb 8.2 L (12.0-16.0) g/dl Hct 26.6 L (37.0-47.0) % Plt Count 302 (130-400) K/uL BMP 01/02/24 07:39 Sodium 136 Potassium 5.1 Chloride 97 L Carbon Dioxide 33 H BUN 49 H Creatinine 1.64 H D Glucose 95 Calcium 8.2 L Medications Administered Current Inpatient Medications Acetaminophen (Acetaminophen 500 Mg Tab) 1,000 mg PO Q8H PRN PRN Reason: Pain or Fever Stop: 01/04/24 14:19 Last Admin: 12/25/23 20:44 Dose: 1,000 mg Apixaban (Apixaban 5 Mg Tablet) 5 mg PO BID [facility] Stop: 01/04/24 20:59 Last Admin: 01/02/24 09:10 Dose: Not Given Atorvastatin Calcium (Atorvastatin 40 Mg Tab) 40 mg PO DAILY [facility] Stop: 01/05/24 08:59 Last Admin: 01/02/24 09:09 Dose: 40 mg Diclofenac Sodium (Diclofenac Sod 1% Gel 100 Gm Tube) 4 gm EXT Q6H PRN; Protocol PRN Reason: knee pain Stop: 01/04/24 14:19 Last Admin: 12/20/23 19:58 Dose: 4 gm Diclofenac Sodium (Diclofenac Sod 1% Gel 100 Gm Tube) 4 gm EXT BID [facility]; Protocol Stop: 01/27/24 10:59 Last Admin: 01/02/24 09:10 Dose: 4 gm Digoxin (Digoxin 0.125 Mg Tab) 0.125 mg PO MoWeFr@1600 [facility] Stop: 01/26/24 15:59 Last Admin: 12/31/23 17:25 Dose: 0.125 mg Docusate Sodium (Docusate Sodium 100 Mg Cap) 100 mg PO BID [facility] Stop: 01/10/24 20:59 Last Admin: 01/02/24 09:09 Dose: 100 mg Ergocalciferol (Ergocalciferol 1250 Mcg (50,000 Units) Cap) 1,250 mcg PO We@0900 [facility] Stop: 02/04/24 08:59 Gabapentin (Gabapentin 300 Mg Cap) 300 mg PO HS [facility] Stop: 01/04/24 20:59 Last Admin: 01/01/24 20:24 Dose: 300 mg Guaifenesin/Codeine Phosphate (Guaifenesin/Codeine 100mg/10mg 5ml Udc) 5 ml PO Q6H PRN PRN Reason: Cough Stop: 01/21/24 16:18 Hydroxyzine HCl (Hydroxyzine Hcl 25 Mg Tab) 25 mg PO Q6H PRN PRN Reason: Anxiety/Insomnia Stop: 01/15/24 16:00 Last Admin: 12/31/23 20:48 Dose: 25 mg Bumetanide 4 mg/ Syringe 16 mls @ 4 mls/min IV Q8H [facility] Stop: 01/23/24 09:29 Last Admin: 12/28/23 17:04 Dose: 4 mls/min Promethazine HCl 12.5 mg/ (Sodium Chloride) 50.5 mls @ 202 mls/hr IV Q6H PRN PRN Reason: Nausea And Vomiting Stop: 01/25/24 21:27 Last Infusion: 12/27/23 00:39 Dose: Infused Levothyroxine Sodium (Levothyroxine Sodium 100 Mcg Tablet) 100 mcg PO DAILYBB [facility] Stop: 01/05/24 06:29 Last Admin: 01/02/24 06:05 Dose: 100 mcg Lidocaine (Lidocaine 5% 1 Patch) 1 patch TD QAM [facility] Stop: 01/08/24 09:14 Last Admin: 01/02/24 09:10 Dose: 1 patch Magnesium Hydroxide (Magnesium Hydroxide Susp 30 Ml Udc) 30 ml PO Q6H PRN PRN Reason: Constipation Stop: 01/10/24 18:24 Magnesium Oxide (Magnesium Oxide 400 Mg Tab) 400 mg PO BID [facility] Stop: 01/27/24 08:59 Last Admin: 01/02/24 09:11 Dose: 400 mg Metoprolol Succinate (Metoprolol Succ 50mg Ext Rel Tab) 100 mg PO BID [facility] Stop: 01/14/24 20:59 Last Admin: 01/02/24 09:18 Dose: 100 mg Miconazole Nitrate (Miconazole Nitrate Powder 85 Gm) 1 appln EXT BID [facility] Stop: 01/05/24 00:29 Last Admin: 01/02/24 09:14 Dose: 1 appln Miconazole Nitrate (Miconazole Nitrate 2% Cr 30 Gm Tube) 1 appln EXT BID [facility] Stop: 01/19/24 20:59 Last Admin: 01/02/24 09:14 Dose: 1 appln Miscellaneous (Remove Lidoderm Patch) 1 each N/A DAILY@2100 [facility] Stop: 01/08/24 20:59 Last Admin: 01/01/24 20:27 Dose: 1 each Ondansetron HCl (Ondansetron Inj 2 Mg/Ml 2 Ml Vial) 4 mg IV Q6H PRN PRN Reason: Nausea And Vomiting Stop: 01/26/24 12:29 Last Admin: 12/28/23 17:04 Dose: 4 mg Oxycodone/Acetaminophen (Oxycodone/Acetaminophen 10-325 Tab) 1 tab PO Q4H PRN PRN Reason: Pain Stop: 01/13/24 10:09 Last Admin: 01/02/24 09:20 Dose: 1 tab Polyethylene Glycol (Polyethylene (Miralax) 17 Gm Pack) 17 gm PO DAILY PRN PRN Reason: Constipation Stop: 01/04/24 14:19 Last Admin: 12/16/23 08:58 Dose: 17 gm Potassium Chloride (Potassium Chloride Crtab 20 Meq Tabcr) 20 meq PO BID [facility] Stop: 01/23/24 20:59 Last Admin: 01/01/24 20:26 Dose: 20 meq
--- NOTE | 2024-01-02 13:21 | Nephrology Progress Note ---
Date of Service January 02, 2024 Assessment & Plan (1) FLETCHER (acute kidney injury): Plan: Her baseline creatinine was 1.0 prior to hospital admission; however she's had FLETCHER since arrival w/ waxing and waning renal function. Was 1.7 on arrival creatinine on december 05 and peaked at 2.7 on 12/31, highest value this admission. improving today to 1.6 w/ holding diuretics/ supportive care. My partners had last seen her with creatinine 1.7 on 12/24; started her on aggressive bumex/metolazone that day, which was stopped late in the day on 12/28. creatinine continued to climb for a few days after diuretics stopped. renal u/s, UA, CXR all reassuring. She has FLETCHER in the setting of AF w/ RVR and significant cardiac pauses. remains in AF but rate control a bit more challenging past 24 hrs than previously. Notable edema on exam but hard to assess fluid status meaningfully w/ her body habitus. weight approximately stable on standing scale checks, hovering at about 173 kg; has been on RA consistently for several days. >>she has been having extended periods of hypotension, including most of evening/late afternoon overnight into the day>> this will worsen renal function. has been on RA consistently for several days -continue daily standing weight -continue 1.5 L FR and < 2 gm daily sodium diet -continue to hold diuretics > but likely to resume lower standing dose sometime soon -put K supplements on hold -daily bmp >maintain SBP >100 generally > may need to increase digoxin dose now that she has improved renal function >> will address w/ hospitalist (2) Ureteral stent present: Plan: h/o recurrent Kidney stone and S/p Ureteral Stent placement about 2 weeks bag and currently has gross hematuria. Urology following. She does not want hernandez. No acute findings on the CT report as per urology Admission and Anticipated Discharge Date Admission Date: December 05, 2023 Subjective No acute interval events clinically; c/o buttock pain; getting up to commode, to toilet. walked 65 feet as well w/ walker. no sob, no n/v. ongoing concern about edema Review of Systems 2 Review of Systems: All systems reviewed & are unremarkable except as noted in Subjective Physical Exam 2 Constitutional: well developed (sitting up in chair on RA), + morbidly obese, + physical limitations and cooperative; no acute distress Eyes: EOM intact bilaterally ENMT: Ears: no external ear abnormality Nose: no external nose abnormality Mouth: + dry oral mucous membranes Neck: no nuchal rigidity Respiratory: normal respiratory effort (sitting up in chair on RA) A uscultation: lungs clear to auscultation bilaterally and + diminished lung sounds Cardiovascular: Rate/Rhythm: + irregularly irregular (HS distant) E xtremities: + edema (2-3+ distal BLE edema) Gastrointestinal (Abdomen): Inspection/Auscultation: normal bowel sounds P ercussion/Palpation: abdomen soft; abdomen nontender Musculoskeletal: Extremities: strength 5/5 throughout Skin: no rashes, warm and dry Psychiatric: Orientation: alert and oriented x 3 Results & Data Vital Signs (Past 12 Hours) Vital Signs Temp Pulse Pulse Resp BP BP Pulse Ox 01/02/24 12:14 36.7 C 95 H 16 115/71 96 01/02/24 09:20 101 H 138/83 01/02/24 08:00 36.6 C 115 H 24 98/57 L 95 01/02/24 07:34 86 01/02/24 03:30 36.7 C 66 16 119/76 93 O2 Del Method 01/02/24 12:14 Room Air 01/02/24 09:20 01/02/24 08:00 Room Air 01/02/24 07:34 01/02/24 03:30 Room Air Laboratory Results 01/02/24 07:39 01/02/24 07:39
[2024-01-03 07:50] LABS: BUN Creatinine Ratio 24.1 (10-20); Calcium 8.5 mg/dl (8.6-10.3); Est GFR (African American) 29.7 ml/min; Est GFR (Non-African American) 25.6 ml/min; Potassium 5.7 mmol/L (3.5-5.1)
--- NOTE | 2024-01-03 10:40 | Nephrology Progress Note ---
Date of Service January 03, 2024 Assessment & Plan Admission and Anticipated Discharge Date Admission Date: December 05, 2023 Subjective Assessment & Plan (1) FLETCHER (acute kidney injury): Plan: Her baseline creatinine was 1.0 prior to hospital admission; however she's had FLETCHER since arrival waxing and waning renal function. Was 1.7 on arrival creatinine on december 05 and peaked at 2.7 on 12/31, highest value this admission. Extremely difficult to know where her true Hydration status is and also very fluctuating Renal function. even with holding Diuretics creat went up to 2 from 1.6 yesterday. as long as Creat is not rising on a daily basis we are fine. She claims her wt is up a lot ?? No Diuretics today. I may start from tomorrow Stop KCl. (2) Ureteral stent present: Plan: h/o recurrent Kidney stone and S/p Ureteral Stent placement about 2 weeks bag and currently has gross hematuria. Urology following. She does not want hernandez. No acute findings on the CT report as per urology Subjective No new issues. making very little urine -?? In and out. Feels fine otherwise. k is high today. even with holding Diuretics creat went up to 2. Review of Systems Review of Systems: All systems reviewed & are unremarkable except as noted in Subjective Physical Exam Constitutional: well developed (sitting up in chair on RA), + morbidly obese, + physical limitations and cooperative; no acute distress Respiratory: normal respiratory effort (sitting up in chair on RA) Auscult ation: lungs clear to auscultation bilaterally and + diminished lung sounds Cardiovascular: Rate/Rhythm: + irregularly irregular (HS distant) Extremities: + edema (2-3+ distal BLE edema) Gastrointestinal (Abdomen): Inspection/Auscultation: normal bowel sounds Percussion/Palpation: abdomen soft; abdomen nontender Musculoskeletal: Extremities: strength 5/5 throughout Skin: no rashes, warm and dry Psychiatric: Orientation: alert and oriented x 3 Results & Data Vital Signs (Past 12 Hours) Vital Signs Temp Pulse Pulse Resp BP BP Pulse Ox 01/03/24 07:09 36.8 C 95 H 18 152/79 H 95 01/03/24 03:30 36.8 C 90 18 101/69 92 01/02/24 23:00 122 H 01/02/24 22:45 36.7 C 91 H 18 92/60 L 92 O2 Del Method 01/03/24 07:09 Room Air 01/03/24 03:30 Room Air 01/02/24 23:00 01/02/24 22:45 Room Air
--- NOTE | 2024-01-03 16:47 | Hospitalist Progress Note ---
Date of Service January 03, 2024 Assessment & Plan (1) Atrial fibrillation with rapid ventricular response: (2) Elevated troponin: (3) COVID-19: (4) Hypoxia: (5) Abdominal pain: (6) Urolithiasis: (7) Generalized weakness: (8) Tachycardia-bradycardia syndrome: (9) Hypertension: (10) HLD (hyperlipidemia): (11) Hypothyroidism: (12) Morbid obesity with BMI of 60.0-69.9, adult: Plan Ms. Cox is a 63 year old woman with PMHx significant for paroxysmal atrial fibrillation anticoagulated on Eliquis, tachybradycardia syndrome refusing pacemaker, HTN, HLD, hypothyroidism, obesity, obstructive uropathy s/p L uretal stent placement on 11/08 admitted with R sided abdominal pain, FLETCHER and atrial fibrillation with RVR in the setting of a COVID infection and UTI. Patient's course complicated by ongoing atrial fibrillation. Patient is now on oral digoxin and still diuresing, though minimally net negative; however, renal function initially continued to downtrend. Course complicated by worsening edema upon cessation of IV lasix as well as difficult to control RVR. Acute on chronic heart failure with preserved ejection fraction Examination reveals severe bilateral pitting edema. Echo 2021- EF 65-70% Nephrology on board; recommend Bumex 4 mg Q8 along with metolazone Appreciate cardiology input and recommendation Has been diuresed enough with decreasing swelling of the legs and no more weeping of fluid from the legs FR to 1.5L Has been having enough diuresis with cumulative negative balance of 17 L We will continue the current dose of diuretics and monitor electrolytes and kidney function Blood pressure remains on the lower side Clinically a little better with a cumulative fluid loss of 17,680 mL Diuretics are on hold since yesterday- 12/28/2023 Making out reasonable amount of urine even without diuretics for the last 2 days Chest x-ray did not show any evidence of CHF Diuretics remain on hold as per transfer engineer Creatinine remains elevated with potassium at 5.7 Bumex has been restarted orally from today Will repeat PRP at around 6 PM today 2-3+ edema bilaterally-complicated by heart failure and also morbid obesity and inability to ambulate With weeping from the lower leg especially on the right side and some redness Without any significant infection Has been getting high doses of diuretics with minimal improvement-diuretics on hold now [employer]line Operations 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 on board to monitor kidney function and doses of diuretics Bilateral leg swelling is persistent No shortness of breath at rest Left knee pain and pain in the right hip No acute arthritis Pain improving with local diclofenac cream Complains more pain involving the right hip and the back and also left knee area Will increase oxycodone 10/325 every 4 hourly for better pain control Left knee pain is better controlled Has had injection in the left knee joint in the past and wants to know if that can be given while she is in the hospital Pain over the skin abrasion over back of thighs due to prolonged sitting and pressure over that area Left knee pain is better at rest and the knee examination does not show any acute arthritis Pain is worse when putting pressure on the left knee Atrial fibrillation with rapid ventricular response *improved Complicating acute on chronic heart failure as above Presented with R abd pain, found to be in a fib with RVR EKG on admission personally reviewed: A-fib RVR, rate 143 Prior to admission, she was on sotalol. Patient was then started on amiodarone without successful cardioversion; was stopped on December 12, 2023. Currently on metoprolol 100 mg twice daily and digoxin Rate remains elevated at 109 without any other cardiac symptoms Rate seems to be controlled today with seems to be within normal range at 88 today Rate remains on the upper side at around 96 Heart rate is elevated at 96/min Rate is controlled now and symptoms are bradycardic at 53 FLETCHER (acute kidney injury) Likely 2/2 a fib RVR and infection Cr: 1.6 on admission, Initially received IV fluids with improvement in creatinine. Monitor fluid balance Avoid contrast/nephrotoxic meds Monitor renal function, continue to trend [facility] Nephrology reconsulted 12/22 -Bumex 4mg q8h -Metolazone 5mg BID Creatinine remains elevated at 1.82 but seems to be minimally improving with BUN at 48 Will continue current diuresis and monitor kidney function and electrolytes Creatinine remains stable with potassium and magnesium on the lower side Will continue the oral supplement Creatinine has been improving on holding of diuretics Creatinine is worse at 2.03 and potassium is high as well Elevated troponin *resolved Demand ischemia Initial troponin 54. Downtrended to 41.3 EKG with noted atrial fibrillation with RVR Likely elevated secondary to demand ischemia from rapid A-fib, doubt ACS Tachycardia-bradycardia syndrome *stable History of tachybrady syndrome. Follows with cardiology and EP. In past has refused pacemaker Monitor on telemetry Hypertension Hold home losartan and HCTZ with current FLETCHER Monitor BPs Currently on metoprolol 100mg BID Acute complicated UTI 2/2 e coli WBC elevated Urinalysis positive infection. Urine culture growing E. coli; sensitive to ceftriaxone Continue Rocephin on 12/15, EOT tentatively 12/29 for 14 day regimen iso stents Discussed with LYDIA Tucker with Urology: Recommended to l keep hernandez and follow up OP COVID-19 *resolved Acute hypoxic respiratory failure, resolved Pt with sore throat, cough, congestion that started 3-4 days prior to arrival COVID-19 positive on 12/04/22, enhanced precautions completed, completed dex course Chest xray with no acute changes Obstructive uropathy s/p stent placement 10/2023 Patient with reported right-sided abdominal pain that started morning of admission. 12/04/2023 (day before admission), CT abdomen pelvis noted LEFT-sided ureteral stent in place, bilateral intrarenal stones, proximal left ureteral stone, diverticulosis with no signs of diverticulitis. No acute appendicitis or bowel obstruction. No evidence of visceral or intra-abdominal injury. No acute fracture. Pain control Urology consult placed for hematuria (see above) but appreciate recs for this as well -pt now requesting to have stents removed but needs HR under control -Plan to discuss with urology once A Fib is controlled: plan for OP follow up, keep hernandez in place Generalized weakness Ambulates with cane at baseline. Increased generalized weakness over the past several days. Likely secondary to underlying infection with COVID-19 12/04/2023: CT head: No acute intracranial abnormality Fall precautions PT/OT eval-recommending home with s/o support and HH services -Patient willing to consider HH services or rehab if covered, will discuss with CM Has been getting physical therapy and recommended rehab Will need to continue physical therapy HLD (hyperlipidemia) Continue atorvastatin Hypothyroidism Continue levothyroxine Morbid obesity with BMI of 60.0-69.9, adult BMI: 68.3 Encourage weight loss Pt ordered bariatric bed for better comfort Constipation Docusate sodium 100mg BID PRN Miralax ordered PRN milk of magnesia Diet: HH DVT Prophylaxis: On Eliquis CODE STATUS: Full code Dispo: PT/OT now with rehab recommendations. Continues to be hospitalized with atrial fibrillation RVR, FLETCHER requiring close monitoring. Discussed with at bedside. Answered questions/queries. Not yet ready to be discharged Please note the above document was generated using voice recognition software. It may contain grammatical, syntax or spelling errors. Any formal questions or concerns about the content, text or information contained within the body of this dictation should be directly addressed to the provider for clarification Admission and Anticipated Discharge Date Admission Date: December 05, 2023 Subjective 12/27/2023 The patient was seen and examined in telemetry unit in presence of the She has been complaining of back pain and has been out of bed on a chair and does not like to go back to the bed Denies any shortness of breath, chest pain or palpitation Has been telling that the swelling in the legs have improved without any more weeping of fluid 12/28/2023 The patient was seen and examined in telemetry unit in the presence of the She complains to have more swelling of the left leg today with some redness and weeping from the lower leg Denies any chest pain and her palpitation Also complains some left knee pain 12/29/2023 The patient was seen and examined in telemetry unit in presence of the She has been feeling a little better Complains of pain in the right hip and the left knee pain is better Swelling of the legs seems to be little better but has redness and minimal weeping specially on the left side 12/30/2023 The patient was seen and examined in telemetry unit She has been complaining of pain in the right hip area and also left knee Denies any shortness of breath Leg swelling remains the same 12/31/2023 The patient was seen and examined in telemetry unit in presence of the She has been feeling a little better today and looks brighter Denies any shortness of breath Still has pain in the right side of the hip and left knee pain is better 01/01/2024 The patient was seen and examined in telemetry unit She has been feeling better but still complains of pain in the right more than left hip area Denies any chest pain, palpitation or shortness of breath Leg swelling seems to be stable 01/02/2024 The patient was seen and examined in telemetry unit in presence of the She has been complaining of more pain at the back of the thighs and bottom She has been on her back for hours and does not want to be in bed and does not want to stay in the positions Denies any chest pain, palpitation or shortness of breath Her legs remains edematous 01/03/2024 The patient was seen and examined in telemetry unit She has been stable and pain seems to be controlled Today she complained of left knee pain which is worse with movement Denies any shortness of breath at rest Review of Systems Review of Systems: All systems reviewed and are unremarkable except as noted below Musculoskeletal: Back pain and right hip pain Physical Exam Physical Exam: Sitting on a chair with some distress due to ongoing pain at the back Constitutional: well developed, well nourished, + ill appearing and + morbidly obese Eyes: PERRL, conjunctivae normal, anicteric sclerae ENMT: external ear and nose normal, oropharynx normal Neck: trachea midline, no thyromegaly Respiratory: + respiratory distress Auscultation: + diminished lung sounds and + crackles (Minimal crackles at the bases) Cardiovascular: Rate/Rhythm: regular rate, regular rhythm and + tachycardic Heart Sounds: normal S1 and normal S2; no murmur Extremities: + edema (2+ edema bilaterally) Gastrointestinal (Abdomen): Inspection/Auscultation: + abdomen distended and normal bowel sounds Percussion/Palpation: abdomen soft; abdomen nontender Neurologic: normal touch/pain/proprioception and moves all extremities; no focal motor deficits Lymphatic: no cervical or axillary lymphadenopathy Results & Data Results & Data Vital Signs (Past 12 Hours) Vital Signs Temp Pulse Pulse Resp BP BP Pulse Ox 01/03/24 15:49 36.3 C L 53 L 22 116/74 97 01/03/24 15:20 50 L 104/65 01/03/24 11:02 36.4 C L 90 16 120/66 94 01/03/24 07:09 36.8 C 95 H 18 152/79 H 95 O2 Del Method 01/03/24 15:49 Room Air 01/03/24 15:20 Room Air 01/03/24 11:02 Room Air 01/03/24 07:09 Room Air Laboratory Results BMP 01/03/24 06:53 Sodium 133 L Potassium 5.7 H Chloride 95 L Carbon Dioxide 29 BUN 49 H Creatinine 2.03 H D Glucose 102 H Calcium 8.5 L Medications Administered Current Inpatient Medications Acetaminophen (Acetaminophen 500 Mg Tab) 1,000 mg PO Q8H PRN PRN Reason: Pain or Fever Stop: 01/04/24 14:19 Last Admin: 12/25/23 20:44 Dose: 1,000 mg Apixaban (Apixaban 5 Mg Tablet) 5 mg PO BID [facility] Stop: 01/04/24 20:59 Last Admin: 01/03/24 09:16 Dose: 5 mg Ascorbic Acid (Ascorbic Acid 500 Mg Tab) 500 mg PO QAM [facility]JE[facility] Stop: 02/02/24 16:14 Atorvastatin Calcium (Atorvastatin 40 Mg Tab) 40 mg PO DAILY [facility] Stop: 01/05/24 08:59 Last Admin: 01/03/24 09:16 Dose: 40 mg Diclofenac Sodium (Diclofenac Sod 1% Gel 100 Gm Tube) 4 gm EXT Q6H PRN; Protocol PRN Reason: knee pain Stop: 01/04/24 14:19 Last Admin: 12/20/23 19:58 Dose: 4 gm Diclofenac Sodium (Diclofenac Sod 1% Gel 100 Gm Tube) 4 gm EXT BID [facility]; Protocol Stop: 01/27/24 10:59 Last Admin: 01/03/24 09:18 Dose: 4 gm Digoxin (Digoxin 0.125 Mg Tab) 0.125 mg PO MoWeFr@1600 [facility] Stop: 01/26/24 15:59 Last Admin: 12/31/23 17:25 Dose: 0.125 mg Docusate Sodium (Docusate Sodium 100 Mg Cap) 100 mg PO BID [facility] Stop: 01/10/24 20:59 Last Admin: 01/03/24 09:15 Dose: 100 mg Ergocalciferol (Ergocalciferol 1250 Mcg (50,000 Units) Cap) 1,250 mcg PO We@0900 [facility] Stop: 02/04/24 08:59 Gabapentin (Gabapentin 300 Mg Cap) 300 mg PO HS [facility] Stop: 01/04/24 20:59 Last Admin: 01/02/24 20:41 Dose: 300 mg Guaifenesin/Codeine Phosphate (Guaifenesin/Codeine 100mg/10mg 5ml Udc) 5 ml PO Q6H PRN PRN Reason: Cough Stop: 01/21/24 16:18 Hydroxyzine HCl (Hydroxyzine Hcl 25 Mg Tab) 25 mg PO Q6H PRN PRN Reason: Anxiety/Insomnia Stop: 01/15/24 16:00 Last Admin: 12/31/23 20:48 Dose: 25 mg Promethazine HCl 12.5 mg/ (Sodium Chloride) 50.5 mls @ 202 mls/hr IV Q6H PRN PRN Reason: Nausea And Vomiting Stop: 01/25/24 21:27 Last Infusion: 12/27/23 00:39 Dose: Infused Levothyroxine Sodium (Levothyroxine Sodium 100 Mcg Tablet) 100 mcg PO DAILYBB [facility] Stop: 01/05/24 06:29 Last Admin: 01/03/24 06:25 Dose: 100 mcg Lidocaine (Lidocaine 5% 1 Patch) 1 patch TD QAM [facility] Stop: 01/08/24 09:14 Last Admin: 01/03/24 09:17 Dose: 1 patch Magnesium Hydroxide (Magnesium Hydroxide Susp 30 Ml Udc) 30 ml PO Q6H PRN PRN Reason: Constipation Stop: 01/10/24 18:24 Magnesium Oxide (Magnesium Oxide 400 Mg Tab) 400 mg PO BID [facility] Stop: 01/27/24 08:59 Last Admin: 01/03/24 09:16 Dose: 400 mg Metoprolol Succinate (Metoprolol Succ 50mg Ext Rel Tab) 100 mg PO BID [facility] Stop: 01/14/24 20:59 Last Admin: 01/03/24 09:16 Dose: 100 mg Miconazole Nitrate (Miconazole Nitrate Powder 85 Gm) 1 appln EXT BID [facility] Stop: 01/05/24 00:29 Last Admin: 01/03/24 09:15 Dose: 1 appln Miconazole Nitrate (Miconazole Nitrate 2% Cr 30 Gm Tube) 1 appln EXT BID [facility] Stop: 01/19/24 20:59 Last Admin: 01/03/24 09:20 Dose: 1 appln Miscellaneous (Remove Lidoderm Patch) 1 each N/A DAILY@2100 [facility] Stop: 01/08/24 20:59 Last Admin: 01/02/24 20:44 Dose: 1 each Ondansetron HCl (Ondansetron Inj 2 Mg/Ml 2 Ml Vial) 4 mg IV Q6H PRN PRN Reason: Nausea And Vomiting Stop: 01/26/24 12:29 Last Admin: 12/28/23 17:04 Dose: 4 mg Oxycodone/Acetaminophen (Oxycodone/Acetaminophen 10-325 Tab) 1 tab PO Q4H PRN PRN Reason: Pain Stop: 01/13/24 10:09 Last Admin: 01/03/24 09:15 Dose: 1 tab Polyethylene Glycol (Polyethylene (Miralax) 17 Gm Pack) 17 gm PO DAILY PRN PRN Reason: Constipation Stop: 01/04/24 14:19 Last Admin: 12/16/23 08:58 Dose: 17 gm
--- NOTE | 2024-01-03 16:58 | Electrocardiogram Report ---
Test Reason : Blood Pressure : / mmHG Vent. Rate : 055 BPM Atrial Rate : 055 BPM P-R Int : 166 ms QRS Dur : 084 ms QT Int : 380 ms P-R-T Axes : 011 014 177 degrees QTc Int : 363 ms Poor data quality, interpretation may be adversely affected Sinus bradycardia with Premature supraventricular complexes Diffuse Nonspecific ST and T wave abnormality Abnormal ECG When compared with ECG of 12-DEC-2023 08:45, Sinus rhythm has replaced Atrial fibrillation Vent. rate has decreased BY 37 BPM Confirmed by Liam Melendez ([id number]) on 01/03/2024 4:57:51 PM Referred By: REFERRED SELF Confirmed By:Liam Melendez
[2024-01-03] MEDS: ASCORBIC ACID 500 MG TAB PO SCH (17:30)
[2024-01-03 19:05] LABS: BUN Creatinine Ratio 20.8 (10-20); Calcium 8.3 mg/dl (8.6-10.3); Creatinine Clr Calc Pharmacy 39.6 ml/min; Est GFR (African American) 24.8 ml/min; Est GFR (Non-African American) 21.4 ml/min; Potassium 5.7 mmol/L (3.5-5.1)
[2024-01-03] MEDS: SODIUM ZIRCONIUM CYCLOSILICATE 10 GM PACKET PO SCH (22:08)
[2024-01-04 07:43] LABS: BUN Creatinine Ratio 21.4 (10-20); Calcium 8.3 mg/dl (8.6-10.3); Creatinine Clr Calc Pharmacy 39.8 ml/min; Est GFR (Non-African American) 21.6 ml/min; Magnesium 2.7 mg/dl (1.7-2.4); Potassium 5.3 mmol/L (3.5-5.1)
--- NOTE | 2024-01-04 10:03 | Nephrology Progress Note ---
Date of Service January 04, 2024 Assessment & Plan Admission and Anticipated Discharge Date Admission Date: December 05, 2023 Subjective Assessment & Plan (1) FLETCHER (acute kidney injury): Plan: Her baseline creatinine was 1.0 prior to hospital admission; however she's had FLETCHER since arrival waxing and waning renal function. Was 1.7 on arrival creatinine on december 05 and peaked at 2.7 on 12/31, highest value this admission. Extremely difficult to know where her true Hydration status is and also very fluctuating Renal function. Even with holding Diuretics creat went up to 2.34 from 2 yesterday. as long as Creat is not rising on a daily basis we are fine. She claims her wt is up a lot ?? urine output ??--refuses hernandez mag is high so will stop Supplement Creat 2.34 this AM from 2.0 yesterday AM. Hold diuretics one more day to see that its trending down. (2) Ureteral stent present: Plan: h/o recurrent Kidney stone and S/p Ureteral Stent placement about 2 weeks bag and currently has gross hematuria. Urology following. She does not want hernandez. No acute findings on the CT report as per urology Subjective No new issues. making very little urine -?? In and out. Feels fine otherwise.on Room air. No SOB at rest k is high today. Creat Review of Systems Review of Systems: All systems reviewed & are unremarkable except as noted in Subjective Physical Exam Constitutional: well developed (sitting up in chair on RA), + morbidly obese, + physical limitations and cooperative; no acute distress Respiratory: normal respiratory effort (sitting up in chair on RA) Auscultation: lungs clear to auscultation bilaterally and + diminished lung sounds Cardiovascular: Rate/Rhythm: + irregularly irregular (HS distant) Extremities: + edema (2-3+ distal BLE edema) Gastrointestinal (Abdomen): Inspection/Auscultation: normal bowel sounds Percussion/Palpation: abdomen soft; abdomen nontender Musculoskeletal: Extremities: strength 5/5 throughout Skin: no rashes, warm and dry Psychiatric: Orientation: alert and oriented x 3 Results & Data Vital Signs (Past 12 Hours) Vital Signs Temp Pulse Pulse Resp BP BP Pulse Ox 01/04/24 07:56 36.7 C 53 L 20 108/71 94 01/04/24 03:20 36.7 C 60 20 100/66 95 02/05/24 23:00 52 L 01/03/24 22:50 37.2 C 78 22 110/76 94 O2 Del Method 01/04/24 07:56 Room Air 01/04/24 03:20 Room Air 01/03/24 23:00 01/03/24 22:50 Room Air
--- NOTE | 2024-01-04 12:20 | Hospitalist Progress Note ---
Date of Service January 04, 2024 Assessment & Plan (1) Atrial fibrillation with rapid ventricular response: (2) Elevated troponin: (3) COVID-19: (4) Hypoxia: (5) Abdominal pain: (6) Urolithiasis: (7) Generalized weakness: (8) Tachycardia-bradycardia syndrome: (9) Hypertension: (10) HLD (hyperlipidemia): (11) Hypothyroidism: (12) Morbid obesity with BMI of 60.0-69.9, adult: Plan Ms. Cox is a 63 year old woman with PMHx significant for paroxysmal atrial fibrillation anticoagulated on Eliquis, tachybradycardia syndrome refusing pacemaker, HTN, HLD, hypothyroidism, obesity, obstructive uropathy s/p L uretal stent placement on 11/08 admitted with R sided abdominal pain, FLETCHER and atrial fibrillation with RVR in the setting of a COVID infection and UTI. Patient's course complicated by ongoing atrial fibrillation. Patient is now on oral digoxin and still diuresing, though minimally net negative; however, renal function initially continued to downtrend. Course complicated by worsening edema upon cessation of IV lasix as well as difficult to control RVR. Acute on chronic heart failure with preserved ejection fraction Examination reveals severe bilateral pitting edema. Echo 2021- EF 65-70% Nephrology on board; recommend Bumex 4 mg Q8 along with metolazone Appreciate cardiology input and recommendation Has been diuresed enough with decreasing swelling of the legs and no more weeping of fluid from the legs FR to 1.5L Has been having enough diuresis with cumulative negative balance of 17 L We will continue the current dose of diuretics and monitor electrolytes and kidney function Blood pressure remains on the lower side Clinically a little better with a cumulative fluid loss of 17,680 mL Diuretics are on hold since yesterday- 12/28/2023 Making out reasonable amount of urine even without diuretics for the last 2 days Chest x-ray did not show any evidence of CHF Diuretics remain on hold as per uniform attendant Creatinine remains elevated with potassium at 5.7 Bumex has been restarted orally from today on 01/03/2024 Her kidney function is slightly worse with minimally increased potassium We are holding Bumex for now01/04/2024 and will monitor PRP to see if there is any improvement 2-3+ edema bilaterally-complicated by heart failure and also morbid obesity and inability to ambulate With weeping from the lower leg especially on the right side and some redness Without any significant infection Has been getting high doses of diuretics with minimal improvement-diuretics on hold now Admissions Assistant on board to monitor kidney function and doses of diuretics Bilateral leg swelling is persistent No shortness of breath at rest Her leg edema remains unchanged Left knee pain and pain in the right hip No acute arthritis Pain improving with local diclofenac cream Complains more pain involving the right hip and the back and also left knee area Will increase oxycodone 10/325 every 4 hourly for better pain control Left knee pain is better controlled Has had injection in the left knee joint in the past and wants to know if that can be given while she is in the hospital Pain over the skin abrasion over back of thighs due to prolonged sitting and pressure over that area Left knee pain is better at rest and the knee examination does not show any acute arthritis Pain is worse when putting pressure on the left knee Once somebody to fix her knee so that she can start walking-has had injection in the knee joint before from outpatient Orthopedic consult has been put Morbid obesity with BMI of 60.0-69.9, adult BMI: 68.3 Encourage weight loss Pt ordered bariatric bed for better comfort Has been very difficult to move around with this much weight She has a high risk of falling if she wants to do things by herself She needs 2-3 people to make her ambulate This was extensively discussed with the patient and the We will continue with the physical therapy She does not want to go to a fpc [facility] acceptance was denied Atrial fibrillation with rapid ventricular response *improved Complicating acute on chronic heart failure as above Presented with R abd pain, found to be in a fib with RVR EKG on admission personally reviewed: A-fib RVR, rate 143 Prior to admission, she was on sotalol. Patient was then started on amiodarone without successful cardioversion; was stopped on December 12, 2023. Currently on metoprolol 100 mg twice daily and digoxin Rate remains elevated at 109 without any other cardiac symptoms Rate seems to be controlled today with seems to be within normal range at 88 today Rate remains on the upper side at around 96 Heart rate is elevated at 96/min Rate is controlled now and symptoms are bradycardic at 53-rate is controlled without any cardiac symptoms FLETCHER (acute kidney injury) Likely 2/2 a fib RVR and infection Cr: 1.6 on admission, Initially received IV fluids with improvement in creatinine. Monitor fluid balance Avoid contrast/nephrotoxic meds Monitor renal function, continue to trend [facility] Nephrology reconsulted 12/22 -Bumex 4mg q8h -Metolazone 5mg BID Creatinine remains elevated at 1.82 but seems to be minimally improving with BUN at 48 Will continue current diuresis and monitor kidney function and electrolytes Creatinine remains stable with potassium and magnesium on the lower side Will continue the oral supplement Creatinine has been improving on holding of diuretics Creatinine is worse at 2.03 and potassium is high as well Creatinine has been creeping up-diuretics is on hold now. Monitor PRP and further recommendation from uniform attendant Elevated troponin *resolved Demand ischemia Initial troponin 54. Downtrended to 41.3 EKG with noted atrial fibrillation with RVR Likely elevated secondary to demand ischemia from rapid A-fib, doubt ACS Tachycardia-bradycardia syndrome *stable History of tachybrady syndrome. Follows with cardiology and EP. In past has refused pacemaker Monitor on telemetry Hypertension Hold home losartan and HCTZ with current FLETCHER Monitor BPs Currently on metoprolol 100mg BID Acute complicated UTI 2/2 e coli WBC elevated Urinalysis positive infection. Urine culture growing E. coli; sensitive to ceftriaxone Continue Rocephin on 12/15, EOT tentatively 12/29 for 14 day regimen iso stents Discussed with LYDIA Tucker with Urology: Recommended to l keep hernandez and follow up OP COVID-19 *resolved Acute hypoxic respiratory failure, resolved Pt with sore throat, cough, congestion that started 3-4 days prior to arrival COVID-19 positive on 12/04/22, enhanced precautions completed, completed dex course Chest xray with no acute changes Obstructive uropathy s/p stent placement 10/2023 Patient with reported right-sided abdominal pain that started morning of admission. 12/04/2023 (day before admission), CT abdomen pelvis noted LEFT-sided ureteral stent in place, bilateral intrarenal stones, proximal left ureteral stone, diverticulosis with no signs of diverticulitis. No acute appendicitis or bowel obstruction. No evidence of visceral or intra-abdominal injury. No acute fracture. Pain control Urology consult placed for hematuria (see above) but appreciate recs for this as well -pt now requesting to have stents removed but needs HR under control -Plan to discuss with urology once A Fib is controlled: plan for OP follow up, keep hernandez in place Hernandez has been taken out and she does not want to the Hernandez to be placed again Very difficult to maintain intake output without the Hernandez Generalized weakness Ambulates with cane at baseline. Increased generalized weakness over the past several days. Likely secondary to underlying infection with COVID-19 12/04/2023: CT head: No acute intracranial abnormality Fall precautions PT/OT eval-recommending home with s/o support and HH services -Patient willing to consider HH services or rehab if covered, will discuss with CM Has been getting physical therapy and recommended rehab Will need to continue physical therapy Has been getting physical therapy but requires about 2-3 people to move around Very high risk of falling if she wants to do things by herself HLD (hyperlipidemia) Continue atorvastatin Hypothyroidism Continue levothyroxine Constipation Docusate sodium 100mg BID PRN Miralax ordered PRN milk of magnesia Diet: HH DVT Prophylaxis: On Eliquis CODE STATUS: Full code Dispo: PT/OT now with rehab recommendations. Continues to be hospitalized with atrial fibrillation RVR, FLETCHER requiring close monitoring. Discussed with at bedside. Answered questions/queries. Not yet ready to be discharged Please note the above document was generated using voice recognition software. It may contain grammatical, syntax or spelling errors. Any formal questions or concerns about the content, text or information contained within the body of this dictation should be directly addressed to the provider for clarification Admission and Anticipated Discharge Date Admission Date: December 05, 2023 Subjective 12/27/2023 The patient was seen and examined in telemetry unit in presence of the She has been complaining of back pain and has been out of bed on a chair and does not like to go back to the bed Denies any shortness of breath, chest pain or palpitation Has been telling that the swelling in the legs have improved without any more weeping of fluid 12/28/2023 The patient was seen and examined in telemetry unit in the presence of the She complains to have more swelling of the left leg today with some redness and weeping from the lower leg Denies any chest pain and her palpitation Also complains some left knee pain 12/29/2023 The patient was seen and examined in telemetry unit in presence of the She has been feeling a little better Complains of pain in the right hip and the left knee pain is better Swelling of the legs seems to be little better but has redness and minimal weeping specially on the left side 12/30/2023 The patient was seen and examined in telemetry unit She has been complaining of pain in the right hip area and also left knee Denies any shortness of breath Leg swelling remains the same 12/31/2023 The patient was seen and examined in telemetry unit in presence of the She has been feeling a little better today and looks brighter Denies any shortness of breath Still has pain in the right side of the hip and left knee pain is better 01/01/2024 The patient was seen and examined in telemetry unit She has been feeling better but still complains of pain in the right more than left hip area Denies any chest pain, palpitation or shortness of breath Leg swelling seems to be stable 01/02/2024 The patient was seen and examined in telemetry unit in presence of the She has been complaining of more pain at the back of the thighs and bottom She has been on her back for hours and does not want to be in bed and does not want to stay in the positions Denies any chest pain, palpitation or shortness of breath Her legs remains edematous 01/03/2024 The patient was seen and examined in telemetry unit She has been stable and pain seems to be controlled Today she complained of left knee pain which is worse with movement Denies any shortness of breath at rest 01/04/2024 The patient was seen and examined in telemetry unit in presence of the She has been complaining of more pain in the left knee and believes that controlling the pain will make her ambulate more She also complains to have dizziness while ambulating and standing She has had an assisted fall yesterday without any significant injury Denies any chest pain, palpitation or shortness of breath at rest She does not want to have a Hernandez catheter Review of Systems Review of Systems: All systems reviewed and are unremarkable except as noted below Musculoskeletal: Has pain involving the back of the thighs and bottom due to prolonged sitting. Left knee pain as well Physical Exam Physical Exam: Sitting on a chair with some distress due to ongoing pain at the back Constitutional: well developed, well nourished, + ill appearing and + morbidly obese Eyes: PERRL, conjunctivae normal, anicteric sclerae ENMT: external ear and nose normal, oropharynx normal Neck: trachea midline, no thyromegaly Respiratory: + respiratory distress Auscultation: + diminished lung sounds and + crackles (Minimal crackles at the bases) Cardiovascular: Rate/Rhythm: regular rate, regular rhythm and + tachycardic Heart Sounds: normal S1 and normal S2; no murmur Extremities: + edema (2+ edema bilaterally) Gastrointestinal (Abdomen): Inspection/Auscultation: + abdomen distended and normal bowel sounds Percussion/Palpation: abdomen soft; abdomen nontender Musculoskeletal: Left knee pain with movement Neurologic: normal touch/pain/proprioception and moves all extremities; no focal motor deficits Lymphatic: no cervical or axillary lymphadenopathy Results & Data Results & Data Vital Signs (Past 12 Hours) Vital Signs Temp Pulse Resp BP BP Pulse Ox O2 Del Method 01/04/24 11:10 36.6 C 53 L 22 143/67 H 98 Room Air 01/04/24 07:56 36.7 C 53 L 20 108/71 94 Room Air 01/04/24 03:20 36.7 C 60 20 100/66 95 Room Air Laboratory Results [facility] 01/03/24 01/04/24 18:31 07:05 Sodium 133 L 133 L Potassium 5.7 H 5.3 H Chloride 94 L 95 L Carbon Dioxide 32 30 BUN 49 H 50 H Creatinine 2.36 H D 2.34 H Glucose 122 H 100 H Calcium 8.3 L 8.3 L Medications Administered Current Inpatient Medications Acetaminophen (Acetaminophen 500 Mg Tab) 1,000 mg PO Q8H PRN PRN Reason: Pain or Fever Stop: 01/04/24 14:19 Last Admin: 12/25/23 20:44 Dose: 1,000 mg Apixaban (Apixaban 5 Mg Tablet) 5 mg PO BID [facility] Stop: 01/04/24 20:59 Last Admin: 01/04/24 09:01 Dose: 5 mg Ascorbic Acid (Ascorbic Acid 500 Mg Tab) 500 mg PO QAM [facility] Stop: 02/02/24 16:14 Last Admin: 01/04/24 09:02 Dose: 500 mg Atorvastatin Calcium (Atorvastatin 40 Mg Tab) 40 mg PO DAILY [facility] Stop: 01/05/24 08:59 Last Admin: 01/04/24 09:01 Dose: 40 mg Diclofenac Sodium (Diclofenac Sod 1% Gel 100 Gm Tube) 4 gm EXT Q6H PRN; Protocol PRN Reason: knee pain Stop: 01/04/24 14:19 Last Admin: 12/20/23 19:58 Dose: 4 gm Diclofenac Sodium (Diclofenac Sod 1% Gel 100 Gm Tube) 4 gm EXT BID [facility]; Protocol Stop: 01/27/24 10:59 Last Admin: 01/04/24 08:59 Dose: 4 gm Digoxin (Digoxin 0.125 Mg Tab) 0.125 mg PO MoWeFr@1600 [facility] Stop: 01/26/24 15:59 Last Admin: 01/03/24 17:13 Dose: Not Given Docusate Sodium (Docusate Sodium 100 Mg Cap) 100 mg PO BID [facility] Stop: 01/10/24 20:59 Last Admin: 01/04/24 08:58 Dose: 100 mg Ergocalciferol (Ergocalciferol 1250 Mcg (50,000 Units) Cap) 1,250 mcg PO We@0900 [facility] Stop: 02/04/24 08:59 Gabapentin (Gabapentin 300 Mg Cap) 300 mg PO HS [facility] Stop: 01/04/24 20:59 Last Admin: 01/03/24 20:28 Dose: 300 mg Guaifenesin/Codeine Phosphate (Guaifenesin/Codeine 100mg/10mg 5ml Udc) 5 ml PO Q6H PRN PRN Reason: Cough Stop: 01/21/24 16:18 Hydroxyzine HCl (Hydroxyzine Hcl 25 Mg Tab) 25 mg PO Q6H PRN PRN Reason: Anxiety/Insomnia Stop: 01/15/24 16:00 Last Admin: 01/03/24 20:28 Dose: 25 mg Promethazine HCl 12.5 mg/ (Sodium Chloride) 50.5 mls @ 202 mls/hr IV Q6H PRN PRN Reason: Nausea And Vomiting Stop: 01/25/24 21:27 Last Infusion: 12/27/23 00:39 Dose: Infused Levothyroxine Sodium (Levothyroxine Sodium 100 Mcg Tablet) 100 mcg PO DAILYBB [facility] Stop: 01/05/24 06:29 Last Admin: 01/04/24 06:15 Dose: 100 mcg Lidocaine (Lidocaine 5% 1 Patch) 1 patch TD QAM [facility] Stop: 01/08/24 09:14 Last Admin: 01/04/24 08:59 Dose: 1 patch Metoprolol Succinate (Metoprolol Succ 50mg Ext Rel Tab) 100 mg PO BID [facility] Stop: 01/14/24 20:59 Last Admin: 01/04/24 09:04 Dose: Not Given Miconazole Nitrate (Miconazole Nitrate Powder 85 Gm) 1 appln EXT BID [facility] Stop: 01/05/24 00:29 Last Admin: 01/04/24 08:59 Dose: 1 appln Miconazole Nitrate (Miconazole Nitrate 2% Cr 30 Gm Tube) 1 appln EXT BID [facility] Stop: 01/19/24 20:59 Last Admin: 01/04/24 08:59 Dose: 1 appln Miscellaneous (Remove Lidoderm Patch) 1 each N/A DAILY@2100 [facility] Stop: 01/08/24 20:59 Last Admin: 01/03/24 20:28 Dose: 1 each Ondansetron HCl (Ondansetron Inj 2 Mg/Ml 2 Ml Vial) 4 mg IV Q6H PRN PRN Reason: Nausea And Vomiting Stop: 01/26/24 12:29 Last Admin: 12/28/23 17:04 Dose: 4 mg Oxycodone/Acetaminophen (Oxycodone/Acetaminophen 10-325 Tab) 1 tab PO Q4H PRN PRN Reason: Pain Stop: 01/13/24 10:09 Last Admin: 01/04/24 06:57 Dose: 1 tab Polyethylene Glycol (Polyethylene (Miralax) 17 Gm Pack) 17 gm PO DAILY PRN PRN Reason: Constipation Stop: 01/04/24 14:19 Last Admin: 12/16/23 08:58 Dose: 17 gm Sodium Zirconium Cyclosilicate (Sodium Zirconium Cyclosilicate 10 Gm Packet) 10 gm PO TID [facility] Stop: 01/05/24 14:01 Last Admin: 01/04/24 09:02 Dose: 10 gm
--- NOTE | 2024-01-04 15:14 | Orthopedic Consultation ---
Date of Service January 04, 2024 Assessment & Plan (1) Osteoarthritis of knees, bilateral: She was seen and examined by Dr. Ratliff. She has bilateral knee DJD and right hip bursitis. She uses some topical voltaren gel which is reasonable to continue. She can get steroid injections intermittently but it is too soon at this time to do knee injections. She can follow up as an outpatient for injections in about 6 weeks. (2) Trochanteric bursitis, right hip: History of Present Illness Reason for Consultation: .left knee pain, right hip pain Requesting Physician: . Attending Physician: Ant Rasmussen MD .Dipesh is a 63 year old patient that we were asked to see due to knee pain and right hip pain. She has a history of bilateral knee DJD and received steroid injections about 6 weeks ago. She did have a fall apparently. The left knee has been bothering her again. She is about 9 years s/p cannulated screw fixation of bilateral femoral neck fractures. Describes lateral right hip pain. Allergies Allergy/AdvReac Type Severity Reaction Status Date / Time lisinopril Allergy Intermediate Cough Verified 12/05/23 12:35 mineral oil Allergy rash to Verified 12/13/23 15:13 "Baby Oil" (mineral oil/fragrance/vit E) nickel Allergy itching Verified 12/24/22 08:43 simvastatin AdvReac Unknown Muscle Pain Verified 12/05/23 12:35 Home Medications Medication Instructions Recorded Confirmed Type apixaban 5 mg tablet (Eliquis) 5 mg PO BID #60 tabs 10/23/21 12/05/23 Rx levothyroxine 100 mcg tablet 100 mcg PO QAM 10/23/21 12/05/23 History (Euthyrox) alendronate 70 mg tablet 70 mg PO WK 05/15/22 12/05/23 History hydrochlorothiazide 25 mg tablet 25 mg PO QAM 05/16/22 12/05/23 History hydroxyzine HCl 25 mg tablet 25 - 50 mg (1 - 2 x 25 mg) PO Q6H 07/10/22 12/05/23 Rx PRN itching #20 tabs sotalol 80 mg tablet 40 mg PO BID17 11/08/23 12/05/23 History valacyclovir 1 gram tablet See Rx Instructions .Route 11/08/23 12/05/23 History (Valtrex) .COMPLEX PRN Cold Sores diclofenac sodium 1 % topical gel 4 g EXT Q6H PRN knee pain #100 11/11/23 12/05/23 Rx (Voltaren Arthritis Pain) grams gabapentin 300 mg capsule 300 mg PO HS #30 caps 11/11/23 12/05/23 Rx miconazole nitrate 2 % topical 1 applic EXT BID PRN fungal 11/11/23 12/05/23 Rx powder (Desenex) infection #85 grams ergocalciferol (vitamin D2) 1,250 50,000 unit PO .weekly 6 weeks #6 11/13/23 12/05/23 Rx mcg (50,000 unit) capsule (Vitamin caps D2) atorvastatin 40 mg tablet 40 mg PO DAILY 12/05/23 12/05/23 History benzonatate 100 mg capsule 100 mg PO TID PRN cough #20 caps 12/05/23 12/05/23 Rx losartan 50 mg tablet 50 mg PO DAILY 12/05/23 12/05/23 History nirmatrelvir 300 mg (150 mg See Rx Instructions PO .COMPLEX 12/05/23 12/05/23 Rx x2)-ritonavir 100 mg tablet,dose #30 tabs pack (Paxlovid) Past Med/Surg History Medical History Urolithiasis Morbid obesity with BMI of 60.0-69.9, adult Frequent urination at night Pre-diabetes Neuropathy Atrial fibrillation on Eliquis Cardiac murmur Follows with Dr. Olga Lidia BARRAZA (hyperlipidemia) Osteoporosis Hypothyroidism Tachycardia-bradycardia syndrome Hypertension Surgical History History of wisdom tooth extraction History of hip surgery BL Family History Other No family history of adverse response to anesthesia Social History Smoking Status: Former smoker Second Hand Exposure: No; Do You Dip or Chew Tobacco: No; Tobacco Cessation Education Requested by Patient: No Hx Alcohol Use: Yes Alcohol type: other Hx Substance Use: No Preferred Language: Belgian Communication Ability: Effective Damper Worker Required: No Beliefs That Will Affect Care: None Current Living Situation: Significant Other Current Living Situation Comment: Home with Ne[facility]idae How many Children do You have: 0 Other Information That Helps Us Care for You: No Feels Safe at Home: Yes Safety Concerns: Feels Safe At This Time Assistive Devices: Cane and Walker Review of Systems All systems reviewed & are unremarkable except as noted in HPI & below. Physical Exam . she is alert and oriented. NAD, sitting in bedside chair. She has erythema, edema of her left lower leg. She can actively extend her left knee. Extensor mechanism is intact. She has pain with knee range of motion. Tender to palpation around the right lateral hip area. Results & Data Results & Data Laboratory Results . Diagnostic Findings .No new xrays obtained. Xray from 11/10/23 shows moderate knee DJD PG Care Time/CCT Total # of Minutes Spent Total Time Spent with Patient: Total time spent is greater than 50% in coordination of care (as documented) at patient's floor/unit and/or counseling patient: Coding Level of Care Code 75666 IN/OBS CONSULT LVL 3,45M Diagnoses Primary osteoarthritis of both knees M17.0 Osteoarthritis type: primary Trochanteric bursitis, right hip M70.61 (1) Osteoarthritis of knees, bilateral Osteoarthritis type: primary Qualified Code(s): M17.0 - Bilateral primary osteoarthritis of knee
[2024-01-05] MEDS: LEVOTHYROXINE SODIUM 100 MCG TABLET PO SCH (06:15)
[2024-01-05] MEDS: ERGOCALCIFEROL 1250 MCG (50,000 UNITS) CAP PO SCH (08:33)
[2024-01-05] MEDS: ATORVASTATIN 40 MG TAB PO SCH (08:33)
[2024-01-05] MEDS: APIXABAN 5 MG TABLET PO SCH (08:33)
--- NOTE | 2024-01-05 09:52 | Nephrology Progress Note ---
Date of Service January 05, 2024 Assessment & Plan Admission and Anticipated Discharge Date Admission Date: December 05, 2023 Subjective Assessment & Plan (1) FLETCHER (acute kidney injury): Plan: Her baseline creatinine was 1.0 prior to hospital admission; however she's had FLETCHER since arrival waxing and waning renal function. Was 1.7 on arrival creatinine on december 05 and peaked at 2.7 on 12/31, highest value this admission. Extremely difficult to know where her true Hydration status is and also very fluctuating Renal function. Even with holding Diuretics creat went up to 2.34 from 2 yesterday. as long as Creat is not rising on a daily basis we are fine. She claims her wt is up a lot ?? urine output ??--refuses hernandez mag was high did stop Supplement . Check again in AM tomorrow Creat 2.34 yesterday but no labs today so will do one now. Decide about Diuretics after labs today. C/o nausea from Lokelma so will d/c that. not critical (2) Ureteral stent present: Plan: h/o recurrent Kidney stone and S/p Ureteral Stent placement about 2 weeks bag and currently has gross hematuria. Urology following. She does not want hernandez. No acute findings on the CT report as per urology Subjective No new issues. making very little urine -?? In and out. c/o Nausea from Lokelma .on Room air. No SOB at rest Review of Systems Review of Systems: All systems reviewed & are unremarkable except as noted in Subjective Physical Exam Constitutional: well developed (sitting up in chair on RA), + morbidly obese, + physical limitations and cooperative; no acute distress Respiratory: normal respiratory effort (sitting up in chair on RA) Auscultation: lungs clear to auscultation bilaterally and + diminished lung sounds Cardiovascular: Rate/Rhythm: + irregularly irregular (HS distant) Extremities: + edema (2-3+ distal BLE edema) Gastrointestinal (Abdomen): Inspection/Auscultation: normal bowel sounds Percussion/Palpation: abdomen soft; abdomen nontender Musculoskeletal: Extremities: strength 5/5 throughout Skin: no rashes, warm and dry Psychiatric: Orientation: alert and oriented x 3 Results & Data Vital Signs (Past 12 Hours) Vital Signs Temp Pulse Pulse Resp BP BP Pulse Ox 01/05/24 07:46 70 01/05/24 07:40 36.7 C 67 19 105/62 93 01/05/24 03:35 36.7 C 65 20 102/74 95 01/04/24 23:03 36.6 C 64 20 100/68 94 01/04/24 23:00 66 O2 Del Method 01/05/24 07:46 01/05/24 07:40 Room Air 01/05/24 03:35 Room Air 01/04/24 23:03 Room Air 01/04/24 23:00
[2024-01-05 10:50] LABS: BUN Creatinine Ratio 22.3 (10-20); Calcium 8.1 mg/dl (8.6-10.3); Creatinine Clr Calc Pharmacy 45.6 ml/min; Est GFR (African American) 29.9 ml/min; Est GFR (Non-African American) 25.8 ml/min; Phosphorus 4.1 mg/dl (2.5-4.9)
--- NOTE | 2024-01-05 18:47 | Hospitalist Progress Note ---
Date of Service January 05, 2024 Assessment & Plan (1) Acute on chronic heart failure with preserved ejection fraction: Plan: per Dr. Rasmussen's notes with addendum: (1) Atrial fibrillation with rapid ventricular response: (2) Elevated troponin: (3) COVID-19: (4) Hypoxia: (5) Abdominal pain: (6) Urolithiasis: (7) Generalized weakness: (8) Tachycardia-bradycardia syndrome: (9) Hypertension: (10) HLD (hyperlipidemia): (11) Hypothyroidism: (12) Morbid obesity with BMI of 60.0-69.9, adult: Plan Ms. Cox is a 63 year old woman with PMHx significant for paroxysmal atrial fibrillation anticoagulated on Eliquis, tachybradycardia syndrome refusing pacemaker, HTN, HLD, hypothyroidism, obesity, obstructive uropathy s/p L uretal stent placement on 11/08 admitted with R sided abdominal pain, FLETCHER and atrial fibrillation with RVR in the setting of a COVID infection and UTI. Patient's course complicated by ongoing atrial fibrillation. Patient is now on oral digoxin and still diuresing, though minimally net negative; however, renal function initially continued to downtrend. Course complicated by worsening edema upon cessation of IV lasix as well as difficult to control RVR. Acute on chronic heart failure with preserved ejection fraction Examination reveals severe bilateral pitting edema. Echo 2021- EF 65-70% Nephrology on board; recommend Bumex 4 mg Q8 along with metolazone Appreciate cardiology input and recommendation Has been diuresed enough with decreasing swelling of the legs and no more weeping of fluid from the legs FR to 1.5L Has been having enough diuresis with cumulative negative balance of 17 L We will continue the current dose of diuretics and monitor electrolytes and kidney function Blood pressure remains on the lower side Clinically a little better with a cumulative fluid loss of 17,680 mL Diuretics are on hold since yesterday- 12/28/2023 Making out reasonable amount of urine even without diuretics for the last 2 days Chest x-ray did not show any evidence of CHF Diuretics remain on hold as per potash flaker Creatinine remains elevated with potassium at 5.7 Bumex has been restarted orally from today on 01/03/2024 Her kidney function is slightly worse with minimally increased potassium We are holding Bumex for now01/04/2024 and will monitor PRP to see if there is any improvement 2-3+ edema bilaterally-complicated by heart failure and also morbid obesity and inability to ambulate With weeping from the lower leg especially on the right side and some redness Without any significant infection Has been getting high doses of diuretics with minimal improvement-diuretics on hold now [employer] on board to monitor kidney function and doses of diuretics Bilateral leg swelling is persistent No shortness of breath at rest Her leg edema remains unchanged 01/05 crea 2.0 Nephro on board diuretic currently on hold Left knee pain and pain in the right hip No acute arthritis Pain improving with local diclofenac cream Complains more pain involving the right hip and the back and also left knee area Will increase oxycodone 10/325 every 4 hourly for better pain control Left knee pain is better controlled Has had injection in the left knee joint in the past and wants to know if that can be given while she is in the hospital Pain over the skin abrasion over back of thighs due to prolonged sitting and pressure over that area Left knee pain is better at rest and the knee examination does not show any acute arthritis Pain is worse when putting pressure on the left knee Once somebody to fix her knee so that she can start walking-has had injection in the knee joint before from outpatient Orthopedic consult has been put 01/05 Ortho consulted too soon to receive another Solumedrol Injection continue pain control Morbid obesity with BMI of 60.0-69.9, adult BMI: 68.3 Encourage weight loss Pt ordered bariatric bed for better comfort Has been very difficult to move around with this much weight She has a high risk of falling if she wants to do things by herself She needs 2-3 people to make her ambulate This was extensively discussed with the patient and the We will continue with the physical therapy She does not want to go to a half-way [facility] acceptance was denied Atrial fibrillation with rapid ventricular response *improved Complicating acute on chronic heart failure as above Presented with R abd pain, found to be in a fib with RVR EKG on admission personally reviewed: A-fib RVR, rate 143 Prior to admission, she was on sotalol. Patient was then started on amiodarone without successful cardioversion; was stopped on December 12, 2023. Currently on metoprolol 100 mg twice daily and digoxin Rate remains elevated at 109 without any other cardiac symptoms Rate seems to be controlled today with seems to be within normal range at 88 today Rate remains on the upper side at around 96 Heart rate is elevated at 96/min Rate is controlled now and symptoms are bradycardic at 53-rate is controlled without any cardiac symptoms 2/ HR constroled FLETCHER (acute kidney injury) Likely 2/2 a fib RVR and infection Cr: 1.6 on admission, Initially received IV fluids with improvement in creatinine. Monitor fluid balance Avoid contrast/nephrotoxic meds Monitor renal function, continue to trend [facility] Nephrology reconsulted 12/22 -Bumex 4mg q8h -Metolazone 5mg BID Creatinine remains elevated at 1.82 but seems to be minimally improving with BUN at 48 Will continue current diuresis and monitor kidney function and electrolytes Creatinine remains stable with potassium and magnesium on the lower side Will continue the oral supplement Creatinine has been improving on holding of diuretics Creatinine is worse at 2.03 and potassium is high as well Creatinine has been creeping up-diuretics is on hold now. Monitor PRP and further recommendation from potash flaker 01/05 as per above Elevated troponin *resolved Demand ischemia Initial troponin 54. Downtrended to 41.3 EKG with noted atrial fibrillation with RVR Likely elevated secondary to demand ischemia from rapid A-fib, doubt ACS Tachycardia-bradycardia syndrome *stable History of tachybrady syndrome. Follows with cardiology and EP. In past has refused pacemaker Monitor on telemetry Hypertension Hold home losartan and HCTZ with current FLETCHER Monitor BPs Currently on metoprolol 100mg BID Acute complicated UTI 2/2 e coli WBC elevated Urinalysis positive infection. Urine culture growing E. coli; sensitive to ceftriaxone Continue Rocephin on 12/15, EOT tentatively 12/29 for 14 day regimen iso stents Discussed with LYDIA Tucker with Urology: Recommended to l keep hernandez and follow up OP COVID-19 *resolved Acute hypoxic respiratory failure, resolved Pt with sore throat, cough, congestion that started 3-4 days prior to arrival COVID-19 positive on 12/04/22, enhanced precautions completed, completed dex course Chest xray with no acute changes Obstructive uropathy s/p stent placement 10/2023 Patient with reported right-sided abdominal pain that started morning of admission. 12/04/2023 (day before admission), CT abdomen pelvis noted LEFT-sided ureteral stent in place, bilateral intrarenal stones, proximal left ureteral stone, diverticulosis with no signs of diverticulitis. No acute appendicitis or bowel obstruction. No evidence of visceral or intra-abdominal injury. No acute fracture. Pain control Urology consult placed for hematuria (see above) but appreciate recs for this as well -pt now requesting to have stents removed but needs HR under control -Plan to discuss with urology once A Fib is controlled: plan for OP follow up, keep hernandez in place Hernandez has been taken out and she does not want to the Hernandez to be placed again Very difficult to maintain intake output without the Hernandez Generalized weakness Ambulates with cane at baseline. Increased generalized weakness over the past several days. Likely secondary to underlying infection with COVID-19 12/04/2023: CT head: No acute intracranial abnormality Fall precautions PT/OT eval-recommending home with s/o support and HH services -Patient willing to consider HH services or rehab if covered, will discuss with CM Has been getting physical therapy and recommended rehab Will need to continue physical therapy Has been getting physical therapy but requires about 2-3 people to move around Very high risk of falling if she wants to do things by herself HLD (hyperlipidemia) Continue atorvastatin Hypothyroidism Continue levothyroxine Constipation Docusate sodium 100mg BID PRN Miralax ordered PRN milk of magnesia Diet: HH DVT Prophylaxis: On Eliquis CODE STATUS: Full code Dispo: anticipate d/c to SNF when medically stable Admission and Anticipated Discharge Date Admission Date: December 05, 2023 Subjective ff up for CHF, etc seen resting in chair, comfortable states she feels ok overall upset, frustrated re: placement- "im tired of getting the runaround" relayed to patient message from CM that insurance has denied acute rehab, but can do a peer to peer eval, patient agreeable has some low back pain no chest pain, dyspnea, palpitations, dizziness no other symptoms Review of Systems Review of Systems: all noted and negative except for above Physical Exam Physical Exam: General- oriented x 3, not in distress, speaks in sentences with no effort or accessory muscle use Eyes- anicteric Neck- no JVD Lungs- clear breath sounds bilaterally, no rales/wheezes Heart- normal rate, regular rhythm; no murmurs Abdomen- normal bowel sounds, nondistended, soft, nontender Extremities- Gr 2 lower leg edema, no calf tenderness Neuro- alert, oriented x 3; no gross focal neurologic deficits Skin- warm & dry Results & Data Results & Data Vital Signs (Past 12 Hours) Vital Signs Temp Pulse Pulse Resp BP BP Pulse Ox 01/05/24 15:32 65 01/05/24 15:30 36.6 C 68 17 138/70 95 01/05/24 14:54 72 01/05/24 11:53 36.6 C 64 18 136/53 L 95 01/05/24 07:46 70 01/05/24 07:40 36.7 C 67 19 105/62 93 O2 Del Method 01/05/24 15:32 01/05/24 15:30 Room Air 01/05/24 14:54 01/05/24 11:53 Room Air 01/05/24 07:46 01/05/24 07:40 Room Air all noted and reviewed including below
[2024-01-05] MEDS: GABAPENTIN 300 MG CAP PO SCH (20:21)
--- NOTE | 2024-01-06 10:19 | Nephrology Progress Note ---
Date of Service January 06, 2024 Assessment & Plan Admission and Anticipated Discharge Date Admission Date: December 05, 2023 Subjective Assessment & Plan (1) FLETCHER (acute kidney injury): Plan: Her baseline creatinine was 1.0 prior to hospital admission; however she's had FLETCHER since arrival waxing and waning renal function. Was 1.7 on arrival creatinine on december 05 and peaked at 2.7 on 12/31, highest value this admission. Extremely difficult to know where her true Hydration status is and also very fluctuating Renal function. Even with holding Diuretics creat went up to 2.34 from 2 yesterday. as long as Creat is not rising on a daily basis we are fine. She claims her wt is up a lot ?? urine output ??--refuses hernandez mag was high did stop Supplement Creat 2 yesterday. Supposed to be discharged today to SNF. Will do torsemide 20 bid. kcl 20 daily. She was not on Any diuretics prior to admission. Edema seems more Like Obesity related but then did have lot of cardiac enlargement. Also cant assess her fluid status by edema. have to do daily wt. torsemide dose can be raised at the SNF if wt going up. Difficult to transport so Can do telemed visit with nephrology if possible (2) Ureteral stent present: Plan: h/o recurrent Kidney stone and S/p Ureteral Stent placement about 2 weeks bag and currently has gross hematuria. Urology following. She does not want hernandez. No acute findings on the CT report as per urology Subjective No new issues. making very little urine -?? In and out. On Room air. No SOB at rest Review of Systems Review of Systems: All systems reviewed & are unremarkable except as noted in Subjective Physical Exam Constitutional: well developed (sitting up in chair on RA), + morbidly obese, + physical limitations and cooperative; no acute distress Respiratory: normal respiratory effort (sitting up in chair on RA) Auscultation: lungs clear to auscultation bilaterally and + diminished lung sounds Cardiovascular: Rate/Rhythm: + irregularly irregular (HS distant) Extremities: + edema (2-3+ distal BLE edema) Gastrointestinal (Abdomen): Inspection/Auscultation: normal bowel sounds Percussion/Palpation: abdomen soft; abdomen nontender Musculoskeletal: Extremities: strength 5/5 throughout Skin: no rashes, warm and dry Psychiatric: Orientation: alert and oriented x 3 Results & Data Vital Signs (Past 12 Hours) Vital Signs Temp Pulse Resp BP BP Pulse Ox O2 Del Method 01/06/24 07:46 36.9 C 63 18 116/46 L 90 Room Air 01/06/24 03:08 37.0 C 59 L 20 112/60 93 Room Air 01/05/24 23:07 36.8 C 60 18 100/78 95 Room Air
--- NOTE | 2024-01-06 11:41 | Hospitalist Progress Note ---
Date of Service January 06, 2024 Assessment & Plan (1) Acute on chronic heart failure with preserved ejection fraction: Plan: per Dr. Rasmussen's notes with addendum: Ms. Cox is a 63 year old woman with PMHx significant for paroxysmal atrial fibrillation anticoagulated on Eliquis, tachybradycardia syndrome refusing pacemaker, HTN, HLD, hypothyroidism, obesity, obstructive uropathy s/p L uretal stent placement on 11/08 admitted with R sided abdominal pain, FLETCHER and atrial fibrillation with RVR in the setting of a COVID infection and UTI. Patient's course complicated by ongoing atrial fibrillation. Patient is now on oral digoxin and still diuresing, though minimally net negative; however, renal function initially continued to downtrend. Course complicated by worsening edema upon cessation of IV lasix as well as difficult to control RVR. Acute on chronic heart failure with preserved ejection fraction Examination reveals severe bilateral pitting edema. Echo 2021- EF 65-70% Nephrology on board; recommend Bumex 4 mg Q8 along with metolazone Appreciate cardiology input and recommendation Has been diuresed enough with decreasing swelling of the legs and no more weeping of fluid from the legs FR to 1.5L Has been having enough diuresis with cumulative negative balance of 17 L We will continue the current dose of diuretics and monitor electrolytes and kidney function Blood pressure remains on the lower side Clinically a little better with a cumulative fluid loss of 17,680 mL Chest x-ray did not show any evidence of CHF 2-3+ edema bilaterally-complicated by heart failure and also morbid obesity and inability to ambulate With weeping from the lower leg especially on the right side and some redness Without any significant infection 01/06 Followed by nephrology service for diuretic management in light of CKD Creatinine has been stable for the past few days around 2.0-2.[address] Marie from nephrology service: Torsemide 20 mg p.o. twice daily together with potassium chloride 20 mill equivalents daily Patient needs to be weighed daily, torsemide dose can be replaced at the alf facility if weight is going up Left knee pain and pain in the right hip No acute arthritis Pain improving with local diclofenac cream Complains more pain involving the right hip and the back and also left knee area Will increase oxycodone 10/325 every 4 hourly for better pain control Left knee pain is better controlled Has had injection in the left knee joint in the past and wants to know if that can be given while she is in the hospital Pain over the skin abrasion over back of thighs due to prolonged sitting and pressure over that area Left knee pain is better at rest and the knee examination does not show any acute arthritis Pain is worse when putting pressure on the left knee Once somebody to fix her knee so that she can start walking-has had injection in the knee joint before from outpatient Orthopedic consult has been put 2/7 Ortho consulted too soon to receive another Solumedrol Injection continue pain control ff up with Ortho as outpatient Morbid obesity with BMI of 60.0-69.9, adult BMI: 68.3 Encourage weight loss Pt ordered bariatric bed for better comfort Has been very difficult to move around with this much weight She has a high risk of falling if she wants to do things by herself She needs 2-3 people to make her ambulate This was extensively discussed with the patient and the continue with the physical therapy Atrial fibrillation with rapid ventricular response *improved Complicating acute on chronic heart failure as above Presented with R abd pain, found to be in a fib with RVR EKG on admission personally reviewed: A-fib RVR, rate 143 Prior to admission, she was on sotalol. Patient was then started on amiodarone without successful cardioversion; was stopped on December 12, 2023. Currently on metoprolol 100 mg twice daily and digoxin Rate is controlled now and symptoms are bradycardic at 53-rate is controlled without any cardiac symptoms FLETCHER (acute kidney injury) Likely 2/2 a fib RVR and infection Cr: 1.6 on admission, Initially received IV fluids with improvement in creatinine. was given: -Bumex 4mg q8h -Metolazone 5mg BID creatinine increased at one point, diuretics had to be held crea has been stable at 2.0-2.3 for the past few days Diuretics resumed Will need repeat BMP in 3-5 days, then monitor Elevated troponin *resolved Demand ischemia Initial troponin 54. Downtrended to 41.3 EKG with noted atrial fibrillation with RVR Likely elevated secondary to demand ischemia from rapid A-fib, doubt ACS Tachycardia-bradycardia syndrome *stable History of tachybrady syndrome. Follows with cardiology and EP. In past has refused pacemaker Monitor on telemetry Hypertension Hold home losartan and HCTZ with current FLETCHER Monitor BPs Currently on metoprolol 100mg BID Acute complicated UTI 2/2 e coli WBC elevated Urinalysis positive infection. Urine culture growing E. coli; sensitive to ceftriaxone Continue Rocephin on 12/15, EOT tentatively 12/29 for 14 day regimen iso stents Discussed with LYDIA Tucker with Urology Will need to follow-up with urology service in 1 week to discuss regarding stent removal COVID-19 *resolved Acute hypoxic respiratory failure, resolved Pt with sore throat, cough, congestion that started 3-4 days prior to arrival COVID-19 positive on 12/04/22, enhanced precautions completed, completed dex course Chest xray with no acute changes Obstructive uropathy s/p stent placement 10/2023 Patient with reported right-sided abdominal pain that started morning of admission. 12/04/2023 (day before admission), CT abdomen pelvis noted LEFT-sided ureteral stent in place, bilateral intrarenal stones, proximal left ureteral stone, diverticulosis with no signs of diverticulitis. No acute appendicitis or bowel obstruction. No evidence of visceral or intra-abdominal injury. No acute fracture. Pain control Urology consult placed for hematuria (see above) but appreciate recs for this as well -pt now requesting to have stents removed but needs HR under control -Plan to discuss with urology once A Fib is controlled: plan for OP follow up, keep hernandez in place Generalized weakness Ambulates with cane at baseline. Increased generalized weakness over the past several days. Likely secondary to underlying infection with COVID-19 12/04/2023: CT head: No acute intracranial abnormality Fall precautions PT/OT eval-recommending home with s/o support and HH services -Patient willing to consider HH services or rehab if covered, will discuss with CM Has been getting physical therapy and recommended rehab Will need to continue physical therapy Has been getting physical therapy but requires about 2-3 people to move around Very high risk of falling if she wants to do things by herself HLD (hyperlipidemia) Continue atorvastatin Hypothyroidism Continue levothyroxine Constipation Docusate sodium 100mg BID PRN Miralax ordered PRN milk of magnesia Diet: HH DVT Prophylaxis: On Eliquis CODE STATUS: Full code Dispo: anticipate d/c to SNF when medically stable Admission and Anticipated Discharge Date Admission Date: December 05, 2023 Subjective ff up for acute on chronic heart failure, etc. Seen resting in bedside chair, comfortable, not in distress States she feels fine overall Pain is well-controlled no chest pain, dyspnea, palpitations, dizziness No other new symptoms States she is ready for discharge today Review of Systems Review of Systems: all noted and negative except for above Physical Exam Physical Exam: General- oriented x 3, not in distress, speaks in sentences with no effort or accessory muscle use Eyes- anicteric Neck- no JVD Lungs- clear breath sounds bilaterally, no rales/wheezes Heart- normal rate, regular rhythm; no murmurs Abdomen- normal bowel sounds, nondistended, soft, nontender Extremities-grade 1 lower leg edema, no erythema/warmth/tenderness Neuro- alert, oriented x 3; no gross focal neurologic deficits Skin- warm & dry Results & Data Results & Data Vital Signs (Past 12 Hours) Vital Signs Temp Pulse Resp BP BP Pulse Ox O2 Del Method 01/06/24 07:46 36.9 C 63 18 116/46 L 90 Room Air 01/06/24 03:08 37.0 C 59 L 20 112/60 93 Room Air all noted and reviewed including below
--- NOTE | 2024-01-06 12:09 | Discharge Summary ---
Discharge Summary Date of Service January 06, 2024 Notes For Next Care Provider Please repeat basic metabolic profile in 3 to 5 days and monitor BMP closely. Titrate torsemide accordingly. Medication Changes From Visit Please refer to assessment and plan below. Admission HPI Per Admitting Provider Patient is 63-year-old female with PMH paroxysmal atrial fibrillation anticoagulated on Eliquis, tachybradycardia syndrome, HTN, HLD, hypothyroidism, obesity, kidney stones presented to ER with complaint of right-sided abdominal pain started this morning. History obtained from patient, patient's significant other, inpatient and outpatient chart review. Patient with recent admission [facility] 11/08/2023-11/13/2023 for left ureteral calculus s/p left ureteral stent placement 11/08/2023, F[facility]CH[facility]. Patient states has had sore throat, cough productive clear sputum, generalized weakness, dizziness with standing x 4 days. Patient seen in [facility] ER last night 12/04/23 for cough, sore throat, syncope, weakness. Was in sinus rhythm at that time. Workup included + COVID-19, unremarkable CT head, CT abdomen pelvis showed left ureteral stent in place and bilateral renal stones without other acute etiology. She was ultimately discharged home with prescription for Paxlovid, Tessalon Perles. Patient reports limited ambulation at baseline. Usually uses cane to assist with ambulation. Reports past several days has been having increased weakness and states last night was dizzy with standing and thinks she passed out causing her to fall. Denies any known injury from the event. Patient reports continued weakness and was having trouble ambulating today. Also reports dizziness with standing. This morning started with right-sided abdominal pain. Patient states this feels like her prior kidney stones and thought it was a kidney stone. She does report intermittent right-sided abdominal pain over the past several weeks. Patient denies left abdominal or flank pain. She reports has continued hematuria since stent placement in October. Reports chronic urinary incontinence and frequency. Patient states some shortness of breath with exertion, she is unsure if this is increased from her baseline. Denies chest pain or palpitations. Denies fever/chills, diaphoresis, N/V/D/C, FIELDS, vision changes, neck pain, hemoptysis, paresthesias, increased extremity edema, rashes. Admission Exam Per Admitting Provider General: no distress, +obese Head: normocephalic, atraumatic Eyes: PERRL, EOM's intact, conjunctiva non-injected, anicteric ENT: normal inspection external ears, nose, mucous membranes moist Neck: supple, trachea midline Lungs: clear, no respiratory distress, currently on room air with sat 93%, no wheezing/rhonchi/rales appreciated CV: Irregularly irregular, rate 120, no pretibial edema appreciated Abd: Protuberant, normal BS, soft, non-tender to palpation at this time, no CVA tenderness to percussion Ext: no cyanosis, no calf tenderness Neuro: A&O x 3, no focal deficits noted, normal affect Skin: warm, dry Principal Dx & Hospital Course #1 = Principal Diagnosis (1) Acute on chronic heart failure with preserved ejection fraction: per Dr. Rasmussen's notes with addendum: Ms. Cox is a 63 year old woman with PMHx significant for paroxysmal atrial fibrillation anticoagulated on Eliquis, tachybradycardia syndrome refusing pacemaker, HTN, HLD, hypothyroidism, obesity, obstructive uropathy s/p L uretal stent placement on 11/08 admitted with R sided abdominal pain, FLETCHER and atrial fibrillation with RVR in the setting of a COVID infection and UTI. Patient's course complicated by ongoing atrial fibrillation. Patient is now on oral digoxin and still diuresing, though minimally net negative; however, renal function initially continued to downtrend. Course complicated by worsening edema upon cessation of IV lasix as well as difficult to control RVR. Acute on chronic heart failure with preserved ejection fraction Examination reveals severe bilateral pitting edema. Echo 2021- EF 65-70% Nephrology on board; recommend Bumex 4 mg Q8 along with metolazone Appreciate cardiology input and recommendation Has been diuresed enough with decreasing swelling of the legs and no more weeping of fluid from the legs FR to 1.5L Has been having enough diuresis with cumulative negative balance of 17 L We will continue the current dose of diuretics and monitor electrolytes and kidney function Blood pressure remains on the lower side Clinically a little better with a cumulative fluid loss of 17,680 mL Chest x-ray did not show any evidence of CHF 2-3+ edema bilaterally-complicated by heart failure and also morbid obesity and inability to ambulate With weeping from the lower leg especially on the right side and some redness Without any significant infection 01/06 Followed by nephrology service for diuretic management in light of CKD Creatinine has been stable for the past few days around 2.0-2.[address] Marie from nephrology service: Torsemide 20 mg p.o. twice daily together with potassium chloride 20 mill equivalents daily Patient needs to be weighed daily, torsemide dose can be replaced at the nursing home facility if weight is going up Left knee pain and pain in the right hip No acute arthritis Pain improving with local diclofenac cream Complains more pain involving the right hip and the back and also left knee area Will increase oxycodone 10/325 every 4 hourly for better pain control Left knee pain is better controlled Has had injection in the left knee joint in the past and wants to know if that can be given while she is in the hospital Pain over the skin abrasion over back of thighs due to prolonged sitting and pressure over that area Left knee pain is better at rest and the knee examination does not show any acute arthritis Pain is worse when putting pressure on the left knee Once somebody to fix her knee so that she can start walking-has had injection in the knee joint before from outpatient Orthopedic consult has been put 01/05 Ortho consulted too soon to receive another Solumedrol Injection continue pain control ff up with Ortho as outpatient Morbid obesity with BMI of 60.0-69.9, adult BMI: 68.3 Encourage weight loss Pt ordered bariatric bed for better comfort Has been very difficult to move around with this much weight She has a high risk of falling if she wants to do things by herself She needs 2-3 people to make her ambulate This was extensively discussed with the patient and the continue with the physical therapy Atrial fibrillation with rapid ventricular response *improved Complicating acute on chronic heart failure as above Presented with R abd pain, found to be in a fib with RVR EKG on admission personally reviewed: A-fib RVR, rate 143 Prior to admission, she was on sotalol. Patient was then started on amiodarone without successful cardioversion; was stopped on December 12, 2023. Currently on metoprolol 100 mg twice daily and digoxin Rate is controlled now and symptoms are bradycardic at 53-rate is controlled without any cardiac symptoms FLETCHER (acute kidney injury) Likely 2/2 a fib RVR and infection Cr: 1.6 on admission, Initially received IV fluids with improvement in creatinine. was given: -Bumex 4mg q8h -Metolazone 5mg BID creatinine increased at one point, diuretics had to be held crea has been stable at 2.0-2.3 for the past few days Diuretics resumed Will need repeat BMP in 3-5 days, then monitor Elevated troponin *resolved Demand ischemia Initial troponin 54. Downtrended to 41.3 EKG with noted atrial fibrillation with RVR Likely elevated secondary to demand ischemia from rapid A-fib, doubt ACS Tachycardia-bradycardia syndrome *stable History of tachybrady syndrome. Follows with cardiology and EP. In past has refused pacemaker Monitor on telemetry Hypertension Hold home losartan and HCTZ with current FLETCHER Monitor BPs Currently on metoprolol 100mg BID Acute complicated UTI 2/2 e coli WBC elevated Urinalysis positive infection. Urine culture growing E. coli; sensitive to ceftriaxone Continue Rocephin on 12/15, EOT tentatively 12/29 for 14 day regimen iso stents Discussed with LYDIA Tucker with Urology Will need to follow-up with urology service in 1 week to discuss regarding stent removal COVID-19 *resolved Acute hypoxic respiratory failure, resolved Pt with sore throat, cough, congestion that started 3-4 days prior to arrival COVID-19 positive on 12/04/22, enhanced precautions completed, completed dex course Chest xray with no acute changes Obstructive uropathy s/p stent placement 10/2023 Patient with reported right-sided abdominal pain that started morning of adm ission. 12/04/2023 (day before admission), CT abdomen pelvis noted LEFT-sided ureteral stent in place, bilateral intrarenal stones, proximal left ureteral stone, diverticulosis with no signs of diverticulitis. No acute appendicitis or bowel obstruction. No evidence of visceral or intra-abdominal injury. No acute fracture. Pain control Urology consult placed for hematuria (see above) but appreciate recs for this as well -pt now requesting to have stents removed but needs HR under control -Plan to discuss with urology once A Fib is controlled: plan for OP follow up, keep hernandez in place Generalized weakness Ambulates with cane at baseline. Increased generalized weakness over the past several days. Likely secondary to underlying infection with COVID-19 12/04/2023: CT head: No acute intracranial abnormality Fall precautions PT/OT eval-recommending home with s/o support and HH services -Patient willing to consider HH services or rehab if covered, will discuss with CM Has been getting physical therapy and recommended rehab Will need to continue physical therapy Has been getting physical therapy but requires about 2-3 people to move around Very high risk of falling if she wants to do things by herself HLD (hyperlipidemia) Continue atorvastatin Hypothyroidism Continue levothyroxine Constipation Docusate sodium 100mg BID PRN Miralax ordered PRN milk of magnesia Diet: HH DVT Prophylaxis: On Eliquis CODE STATUS: Full code Dispo: anticipate d/c to SNF when medically stable Discharge Exam General- oriented x 3, not in distress, speaks in sentences with no effort or accessory muscle use Eyes- anicteric Neck- no JVD Lungs- clear breath sounds bilaterally, no rales/wheezes Heart- normal rate, regular rhythm; no murmurs Abdomen- normal bowel sounds, nondistended, soft, nontender Extremities-grade 1 lower leg edema, no erythema/warmth/tenderness Neuro- alert, oriented x 3; no gross focal neurologic deficits Skin- warm & dry Updated Medication List Medication Instructions Recorded Confirmed Type apixaban 5 mg tablet (Eliquis) 5 mg PO BID #60 tabs 10/23/21 12/05/23 Rx levothyroxine 100 mcg tablet 100 mcg PO QAM 10/23/21 12/05/23 History (Euthyrox) alendronate 70 mg tablet 70 mg PO WK 05/15/22 12/05/23 History hydrochlorothiazide 25 mg tablet 25 mg PO QAM 05/16/22 12/05/23 History hydroxyzine HCl 25 mg tablet 25 - 50 mg (1 - 2 x 25 mg) PO Q6H 07/10/22 12/05/23 Rx PRN itching #20 tabs sotalol 80 mg tablet 40 mg PO BID17 11/08/23 12/05/23 History valacyclovir 1 gram tablet See Rx Instructions .Route 11/08/23 12/05/23 History (Valtrex) .COMPLEX PRN Cold Sores diclofenac sodium 1 % topical gel 4 g EXT Q6H PRN knee pain #100 11/11/23 12/05/23 Rx (Voltaren Arthritis Pain) grams gabapentin 300 mg capsule 300 mg PO HS #30 caps 11/11/23 12/05/23 Rx miconazole nitrate 2 % topical 1 applic EXT BID PRN fungal 11/11/23 12/05/23 Rx powder (Desenex) infection #85 grams ergocalciferol (vitamin D2) 1,250 50,000 unit PO .weekly 6 weeks #6 11/13/23 12/05/23 Rx mcg (50,000 unit) capsule (Vitamin caps D2) atorvastatin 40 mg tablet 40 mg PO DAILY 12/05/23 12/05/23 History benzonatate 100 mg capsule 100 mg PO TID PRN cough #20 caps 12/05/23 12/05/23 Rx losartan 50 mg tablet 50 mg PO DAILY 12/05/23 12/05/23 History nirmatrelvir 300 mg (150 mg See Rx Instructions PO .COMPLEX 12/05/23 12/05/23 Rx x2)-ritonavir 100 mg tablet,dose #30 tabs pack (Paxlovid) ascorbic acid (vitamin C) 500 mg 500 mg PO QAM 30 days #30 tabs 01/06/24 Rx tablet (Vitamin C) digoxin 125 mcg (0.125 mg) tablet 0.125 mg PO MoWeFr@1600 30 days 01/06/24 Rx (Digitek) #13 tabs docusate sodium 100 mg capsule 100 mg PO BID 30 days #60 caps 01/06/24 Rx lidocaine 5 % topical patch 1 patch transdermal QAM 7 days #15 01/06/24 Rx ea metoprolol succinate 50 mg 100 mg (2 x 50 mg) PO BID 30 days 01/06/24 Rx tablet,extended release 24 hr #120 tabs miconazole nitrate 2 % topical 1 applic EXT BID 7 days #42.5 grams 01/06/24 Rx cream oxycodone-acetaminophen 10 mg-325 1 tab PO Q4H PRN severe pain #12 01/06/24 Rx mg tablet tabs potassium chloride 20 mEq 20 meq PO DAILY 30 days #30 tabs 01/06/24 Rx tablet,extended release torsemide 20 mg tablet 20 mg PO BID 30 days #60 tabs 01/06/24 Rx Hospital Stay Data Consultations 12/05/23 12:02 ED Decision to Admit Stat 12/05/23 13:46 Consult Cardiology Routine 12/06/23 12:21 Consult Urology Routine 12/07/23 09:47 Consult Nephrology Routine 12/22/23 12:34 Consult Nephrology Routine 01/04/24 16:07 Consult Orthopedic Surgery Routine Diagnostic Imagining Performed Laboratory Results WBC 5.55 K/ul (4.8-10.8) 01/02/24 07:39 RBC 3.00 M/uL (4.20-5.40) L 01/02/24 07:39 Hgb 8.2 g/dl (12.0-16.0) L 01/02/24 07:39 Hct 26.6 % (37.0-47.0) L 01/02/24 07:39 MCV 88.7 fL (80.0-100.0) 01/02/24 07:39 MCH 27.3 pg (25.0-34.0) 01/02/24 07:39 MCHC 30.8 g/dL (32.0-36.0) L 01/02/24 07:39 RDW Std Deviation 56.6 fL (36.4-46.3) H 01/02/24 07:39 RDW Coeff of Johnny 17.9 % (11.5-14.5) H 01/02/24 07:39 Plt Count 302 K/uL (130-400) 01/02/24 07:39 MPV 9.5 fL (9.4-12.4) 01/02/24 07:39 Immature Gran % (Auto) 0.7 % 01/02/24 07:39 Neut % (Auto) 44.8 % 01/02/24 07:39 Lymph % (Auto) 34.8 % 01/02/24 07:39 [place] % (Auto) 15.3 % 01/02/24 07:39 Eos % (Auto) 4.0 % 01/02/24 07:39 Baso % (Auto) 0.4 % 01/02/24 07:39 Neut # (Auto) 2.49 K/uL (1.40-6.50) 01/02/24 07:39 Lymph # (Auto) 1.93 K/uL (1.20-3.40) 01/02/24 07:39 [place] # (Auto) 0.85 K/uL (0.11-0.59) H 01/02/24 07:39 Eos # (Auto) 0.22 K/uL (0.00-0.50) 01/02/24 07:39 Baso # (Auto) 0.02 K/uL (0.00-0.20) 01/02/24 07:39 Immature Gran # (Auto) 0.04 K/uL (0.01-0.20) 01/02/24 07:39 Absolute Nucleated RBC 0.03 K/uL (0.00-0.12) 01/02/24 07:39 Nucleated RBC % (auto) 0.5 % 01/02/24 07:39 Polychromasia 1+ 12/31/23 06:01 Hypochromasia Present 12/10/23 06:10 PT 11.9 Seconds (9.0-12.0) 12/08/23 06:52 INR 1.1 (0.9-1.1) 12/08/23 06:52 Sodium 134 mmol/L (136-145) L 01/05/24 10:12 Potassium 4.0 mmol/L (3.5-5.1) D 01/05/24 10:12 Chloride 95 mmol/L (98-107) L 01/05/24 10:12 Carbon Dioxide 30 mmol/L (21-32) 01/05/24 10:12 Anion Gap 9 (3-11) 01/05/24 10:12 BUN 45 mg/dl (6-23) H 01/05/24 10:12 Creatinine 2.02 mg/dl (0.6-1.2) H D 01/05/24 10:12 Est Cr Clr Drug Dosing 45.6 ml/min 01/05/24 10:12 Est GFR ( Amer) 29.9 ml/min 01/05/24 10:12 Est GFR (Non-Af Amer) 25.8 ml/min 01/05/24 10:12 BUN/Creatinine Ratio 22.3 (10-20) H 01/05/24 10:12 Glucose 107 mg/dl (70-99(Fasting)) H 01/05/24 10:12 POC Glucose 122 mg/dl (70-99) H 12/15/23 20:05 Calcium 8.1 mg/dl (8.6-10.3) L 01/05/24 10:12 Phosphorus 4.1 mg/dl (2.5-4.9) 01/05/24 10:12 Magnesium 2.7 mg/dl (1.7-2.4) H 01/04/24 07:05 Iron 44 mcg/dl (35-150) 12/07/23 06:41 TIBC 263 mcg/dl (250-450) 12/07/23 06:41 Unsaturated IBC 219 mcg/dl (155-355) 12/07/23 06:41 Transferrin % Sat 17 % (15-50) 12/07/23 06:41 Ferritin 313.8 ng/ml (8-388) 12/07/23 06:41 Total Bilirubin 0.6 mg/dl (0.2-1.0) 12/30/23 08:52 AST 27 U/L (13-39) 12/30/23 08:52 ALT 27 U/L (7-52) 12/30/23 08:52 Alkaline Phosphatase 79 U/L (34-104) 12/30/23 08:52 Troponin I High Sens 41.3 pg/ml (0-14) H 12/06/23 00:25 Total Protein 6.1 gm/dl (6.0-8.3) 12/30/23 08:52 Albumin 3.0 gm/dl (3.4-5.0) L 01/05/24 10:12 Globulin 2.8 gm/dl (2.5-4.0) 12/30/23 08:52 Albumin/Globulin Ratio 1.2 (0.9-2) 12/30/23 08:52 Lipase 9 U/L (11-82) L 12/05/23 10:34 TSH 5.953 uIu/ml (0.300-4.500) H 12/05/23 10:34 Free T4 0.98 ng/dl (0.61-1.60) 12/05/23 10:34 Urine Color [place] 01/01/24 03:10 Urine Appearance Turbid (Clear) A 01/01/24 03:10 Urine pH 5.5 (4.5-7.5) 01/01/24 03:10 Ur Specific [place] 1.016 (1.000-1.030) 01/01/24 03:10 Urine Protein 2+ (Negative) H 01/01/24 03:10 Urine Glucose (UA) Negative (Negative) 01/01/24 03:10 Urine Ketones Negative (Negative) 01/01/24 03:10 Urine Blood 3+ (Negative) H 01/01/24 03:10 Urine Nitrite Negative (Negative) 01/01/24 03:10 Urine Bilirubin 1+ (Negative) H 01/01/24 03:10 Urine Urobilinogen Negative (Negative) 01/01/24 03:10 Ur Leukocyte Esterase 3+ (Negative) H 01/01/24 03:10 Urine WBC (Auto) >30 /hpf (0-5) H 01/01/24 03:10 Urine RBC (Auto) >30 /hpf (0-4) H 01/01/24 03:10 U Hyaline Cast (Auto) 0 /lpf (0-5) 01/01/24 03:10 U Epithel Cells (Auto) >30 /lpf (0-5) H 01/01/24 03:10 Urine Bacteria (Auto) Negative (Negative) 01/01/24 03:10 Urine RBC >30 /hpf (0-4) H 12/07/23 Unknown Urine WBC 5-10 /hpf (0-5) H 12/07/23 Unknown Ur Epithelial Cells 5-10 /lpf (0-5) H 12/07/23 Unknown Other Crystals Talc (None Prsent) 01/01/24 03:10 Urine Bacteria 1+ (Negative) H 12/07/23 Unknown Hyaline Casts 0-5 /lpf (0-5) 12/07/23 Unknown Urine Yeast Budding (None Prsent) A 01/01/24 03:10 Impressions Chest X-Ray 12/31/23 12:56 SINGLE VIEW CHEST CLINICAL HISTORY: Dyspnea. FINDINGS: An AP, portable, upright chest radiograph is compared to study dated 12/05/2023. The heart is enlarged noting atherosclerotic calcification of the thoracic aorta. Pulmonary vascular congestion has improved as compared to 12/05/2023. Chronic interstitial thickening similar to previous. There is minimal bibasilar atelectasis. The lungs and pleural spaces are otherwise clear. No pneumothorax is seen. The skeletal structures are osteopenic. The bony thorax is grossly intact. IMPRESSION: 1. Cardiomegaly without radiographic evidence of congestive failure. 2. No airspace consolidation or pleural effusion is identified. ACT 112: Negative or not required by law. Electronically signed by: Leland Tate M.D. 12/31/2023 2:33 PM Renal Ultrasound 01/01/24 12:56 RENAL ULTRASOUND HISTORY: Acute renal failure worsening renla functoin; hx L>R stones COMPARISON: Ultrasound 11/12/2023 FINDINGS: Right kidney: 10.7 cm. Nonobstructing calculi of the right kidney are redemonstrated measuring up to approximately 9 mm. No hydronephrosis. Normal corticomedullary differentiation and cortical thickness. Left kidney: 10.9 cm. Nonobstructing calculi and left ureteral stent is noted. Left kidney are redemonstrated measuring up to approximately 8 mm. No hydronephrosis. Normal corticomedullary differentiation and cortical thickness. Bladder: Partially decompressed bladder with mild wall thickening. Ureteral jets not visualized. The study is overall limited secondary to patient body habitus and movement. IMPRESSION: 1. Nonobstructing bilateral nephrolithiasis without hydronephrosis. 2. Left ureteral stent in place. ACT 112: Negative or not required by law. Electronically signed by: Harsh Olivarez M.D. 01/01/2024 7:19 AM 01/01/24 12:56 US renal/blad retro comp Routine Pending Results Patient Have Any Pending Studies at Discharge: Yes Discharge Instructions Given to Patient (Per Discharging Provider) Please refer to accompanying hospital discharge summary for further details. Total Time Total Time Spent Total Time Spent (In Minutes): >30 minutes
== END 2024-01-06 16:52 | DRG 308 ==
LOC: ED 10:08 → EDINP 13:23 → SUATTDRO 13:23 → 2S 17:38

== ENCOUNTER 2024-01-29 20:22 | Inpatient (IN) ==
--- OUTSIDE RECORDS SUMMARY | 2024-01-29 21:01 | External Medical Summary | Summary of Care ---
Author Name Unknown Organization [facility] Address [address] [facility] [place] [address] Phone [phone] Care Team Providers Care Director Of Officiating Name Role Phone MunirRik irizarry Shamika CH Primary Care Provider [phone] Reason for Visit * Reason Onset Date Comments [facility]: Maintenance 01/29/2024 Encounter Details Date Type Department Care Team (Late st Contact Info) Description 01/29/2024 4:00 PM EST Scheduled Telephone [facility], [facility] [address] [place] [address] [facility], Nurse [facility] [address] [place] [address] Allergies Active Allergy Reactions Criticality Noted Date Comments Baby Oil High 05/15/2022 Other reaction(s): Rash Lisinopril Cough 09/10/2010 Other Allergy (See Comments) Itching 014 BABY OIL Simvastatin 01/24/2008 myalgias documented as of this encounter (statuses as of 01/29/2024) Medications Medication Sig Dispensed Refills Start Date [...] maintenance. 20 mL 1 05/26/2023 Active Nystatin 904728 UNIT/GM External Powder 3 times a day. 0 05/06/2023 Active valACYclovir HCl 1 GM Oral Tablet (Valtrex)Indications :Cold sore Take 2 Tablets by mouth in the morning and 2 Tablets before bedtime. For 1 day for cold sores. 4 Tablet 11 07/29/2023 Active Gabapentin 600 MG Oral Tablet (Neurontin)Indicatio ns:Idiopathic polyneuropathy Take 1 Tablet by mouth at bedtime. 90 Tablet 1 09/03/2023 Active Additional Information Patient taking differently: 300 mgOral HS, Reported on 11/15/2023 oxyBUTYnin Chloride ER 5 MG Oral Tablet [...] TABLET BEFORE BEDTIME. 180 Tablet 0 11/04/2023 Active Cefdinir 300 MG Oral Capsule (Omnicef) take 1 capsule by mouth twice a day for 3 days 6 Capsule 0 11/11/2023 Active Diclofenac Sodium 1 % External Gel (Voltaren) apply 4 grams Externally every 6 hours As Needed for knee pain 100 g 0 11/11/2023 Active Gabapentin 300 MG Oral Capsule (Neurontin) take 1 capsule by mouth at bedtime 30 Capsule 0 11/11/2023 Active Miconazole Nitrate 2 % External Powder (Remedy) Apply topically to affected area. 85 g 0 11/11/2023 Active Probiotic 250 MG Oral Capsule take 1 capsule by mouth daily for 1 week with a meal 7 Capsule 0 11/11/2023 Active Vitamin D (Ergocalciferol) 1.25 MG (13824 UT) Oral Capsule (Drisdol) take 1 capsule by mouth once weekly starting 11/17/2023. 6 Capsule 0 11/13/2023 Active valACYclovir HCl 1 GM Oral Tablet (Valtrex)Indications :Cold sore Take 2 Tablets by mouth in the morning and 2 Tablets before bedtime. For 1 day for cold sores. 4 Tablet 11 11/15/2023 Active documented as of this encounter (statuses as of 01/29/2024) Active Problems Problem Noted Date Diagnosed Date Food insecurity 11/08/2023 Overview: Per [facility] Protocol FLETCHER (acute kidney injury) 05/10/2023 Idiopathic polyneuropathy [...] as of this encounter (statuses as of 01/29/2024) Resolved Problems Problem Noted Date Diagnosed Date [...] as of this encounter (statuses as of 01/29/2024) Immunizations Name Administration Dates Next Due COVID-19 mRNA, LNP-s, PF, 18 + or 6-11Yrs (Moderna) 10/31/2021 COVID-19, LNP-s, No Preserve , Alexx-sucrose, Ages 12+ (Pfizer) 06/02/2022 Covid-19 Ad26, Single Dose (Aaron/J&J) 03/09/2021 Pneumococcal Conjugate Vacci ne, 20-valent ([id number]) 02/24/2023 Seasonal Influenza, PF, 6 M & [...] encounter Miscellaneous Notes * Telephone Encounter - Della Colin RN - 01/29/2024 3:21 PM EST Images from the original note were not included. [facility] Telephonic Nurse Follow-Up Call [facility] Subprogram: No data was found Follow Up Call Type: Weekend Call Acute issue requiring follow-up call: Other: PRETTY call EOD SNF dc 01/28, review 01/29 appt Objective: 11/15/2023 1:59 PM 10/12/2023 1:41 PM 09/03/2023 8:54 AM 08/27/2023 11:40 AM 07/29/2023 11:46 AM VITALS ACROSS ENCOUNTERS BP 118/76 112/70 110/62 128/64 136/72 Pulse 62 81 48 51 43 Weight 177.4 kg 176.9 kg 174.4 kg 174.4 kg BMI 69.3 BMI 69.31 kg/m2 69.1 kg/m2 68.11 kg/m2 68.11 kg/m2 Subjective: Condition Status: [facility] Current Concerns: Phone call to patient to all phone numbers listed, no answer, was able to leave a detailed message on one of the answering machine to call [facility], toll free number provided in message Call to [facility], patient was discharge to home today Disposition: Routed to [facility] and/or [facility] Care Team for further advice and RNCM visit scheduled Future Visits Scheduled: Future Appointments-next 60 days Date/Time Provider Specialty Dept Phone 01/29/2024 4:00 PM [facility], Nurse [facility] [phone] 01/30/2024 11:30 AM [facility] Nurse [facility] [phone] 02/03/2024 1:00 PM (Arrive by 12:45 PM) Kassandra Farfan PA-C Family Medicine [phone] 02/09/2024 9:30 AM 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 [facility] Cardiac Studies [phone] 02/28/2024 10:00 AM Glendy Skinner PA-C [facility] [phone] 03/07/2024 10:00 AM (Arrive by 9:45 AM) Soila Esparza CRNP Cardiology [phone] 03/07/2024 1:40 PM (Arrive by 1:25 PM) Rik Alan DO Family Medicine [phone] 03/28/2024 9:20 AM (Arrive by 9:05 AM) Yaima Green MD Nephrology [phone] Della Colin, RN documented in this encounter Plan of Treatment Upcoming Encounters Date Type Department Care Team (Late st Contact Info) Description 01/30/2024 11:30 AM EST Home Visit [facility], [facility] [address] [place] [address] [facility], Nurse [facility] [address] [place] [address] 02/03/2024 1:00 PM EST Office Visit [facility] [address] [facility] [place] [address] Kassandra Farfan PA-C [address] [facility] [place] [address] 02/09/2024 9:30 AM EDT Cardiac Studies Cardiac Studies, [facility] [address] [facility] [address] 02/28/2024 10:00 AM EDT Home Visit [facility], [facility] [address] [facility] [place] [address] Glendy Skinner PA-C [address] [facility] [address] 03/07/2024 10:00 AM EDT Office Visit Cardiology, [facility] 132 [facility] [place] [address] Soila Esparza CRNP [address] [facility] [place] [address] 03/07/2024 1:40 PM EDT Office Visit [facility] [address] [place] [address] Rik Alan, [address] [facility] [place] [address] 03/28/2024 9:20 AM EDT Office Visit Nephrology, [facility] [address] [facility] [place], [place] [address] Yaima Green MD [address] [facility] [place], [place] [address] Scheduled Procedures Name Priority Associated Diagnoses Date/Ti me COLONOSCOPY FLEXIBLE PROXIMAL DIAGNOSTIC Recall History of colon polyps Health Maintenance Due Date Last Done Comments HPV/Co-Test 1991 Cervical Cancer Screening 12/25/2011 Pap Smear 12/25/2011 12/25/2008, 11/30, 01/13/2005, Additional history exists Depression Screening 07/14/2023 07/14/2022 COVID-19 Vaccine ( season) 2023 06/02/2022, 10/31/2021, 03/09/2021 Mammogram 04/16/2024 04/16/2023, 03/29, 04/15/2022, Additional history exists TSH 10/26/2024 10/26/2023, 07/30, 02/24/2023, Additional history exists GFR 11/15/2024 11/15/2023, 09/30, 02/24/2023, Additional history exists DXA Scan 02/09/2025 02/09/2023, 10/29, 10/29/2015, Additional history exists Albumin/Creatinine Ratio 10/26/2026 10/26/2023 Diabetes Screening 11/15/2026 11/15/2023, 0 02/24/2023, 02/24/2023, Additional history exists COLONOSCOPY-EVERY 5 YRS AGES 18-100 12/24/2027 12/24/2022, 12/24/2022 Lipid Panel 10/26/2028 10/26/2023, 01/28, 01/13/2023, Additional history exists DTaP,Tdap,and Td Vaccines (3 - Td or Tdap) 02/14/2029 02/14/2019, 05/08/2008 Fecal Occult Blood Test Discontinued 11/09/2013 VITAMIN D LEVEL ONCE IN A LIFETIME-USE SMARTSET# [id number] Completed 02/20/2020, 11/09/2017, 04/14/2016, Additional history exists Zoster Vaccines Completed 08/25/2022, 09/09/2021 Colonoscopy Discontinued 12/24/2022, 12/24/2022 Colorectal Cancer Screening Discontinued Pneumococcal Vaccine: [...] as of this encounter Care Teams Director Of Officiating Relationship Specialty Start Date End Date Rik Alan DO [address] [place] [address] PCP - General Family Medicine 04/17/16 documented as of this encounter
--- OUTSIDE RECORDS SUMMARY | 2024-01-29 21:02 | External Medical Summary | Summary of Care ---
Author Name Unknown Organization [facility] Address [address] [facility] [place] [address] Phone [phone] Care Team Providers Care Physical Education Specialist Name Role Phone Dayanna Rik Shamika CH Primary Care Provider [phone] Reason for Visit * Reason Onset Date Comments [facility]: Screening 01/27/2024 Encounter Details Date Type Department Care Team (Late st Contact Info) Description 01/27/2024 Telephone [facility], [facility] [address] [facility] [place] [id number] [facility], Nurse [facility] [address] [facility] [place] [address] [facility]: Screening Allergies Active Allergy Reactions Criticality Noted Date Comments Baby Oil High 05/15/2022 Other reaction(s): Rash Lisinopril Cough 09/10/2010 Other Allergy (See Comments) Itching 014 BABY OIL Simvastatin 01/24/2008 myalgias documented as of this encounter (statuses as of 01/27/2024) Medications Medication Sig Dispensed Refills Start Date [...] maintenance. 20 mL 1 05/26/2023 Active Nystatin 262594 UNIT/GM External Powder 3 times a day. [...] 11/11/2023 Active Vitamin D (Ergocalciferol) 1.25 MG (40938 UT) Oral Capsule (Drisdol) take 1 capsule by mouth once weekly starting 11/17/2023. 6 Capsule 0 11/13/2023 Active valACYclovir HCl 1 GM Oral Tablet (Valtrex)Indications :Cold sore Take 2 Tablets by mouth in the morning and 2 Tablets before bedtime. For 1 day for cold sores. 4 Tablet 11 11/15/2023 Active documented as of this encounter (statuses as of 01/27/2024) Active Problems Problem Noted Date Diagnosed Date [...] as of this encounter (statuses as of 01/27/2024) Resolved Problems Problem Noted Date Diagnosed Date [...] HTN, goal below 140/90 02/03/200506/16 Mixed dyslipidemia 02/14/2003200 9 Overview: Per Lipid Taxonomy OBESITY, UNSPECIFIED 007 documented as of this encounter (statuses as of 01/27/2024) Immunizations Name Administration Dates Next Due COVID-19 mRNA, LNP-s, PF, 18 + or 6-11Yrs (Moderna) 10/31/2021 COVID-19, LNP-s, No Preserve , Alexx-sucrose, Ages 12+ (Pfizer) 06/02/2022 Covid-19 Ad26, Single Dose (Aaron/J&J) 03/09/2021 Pneumococcal Conjugate Vacci ne, 20-valent ([id number]) 02/24/2023 Seasonal Influenza, PF, 6 M & [...] encounter Miscellaneous Notes * Telephone Encounter - Kristan Bryan LPN - 01/27/2024 11:26 AM EST Dipesh Cox was referred as a potential candidate for enrollment for [facility]. A review of this chart was completed and: Dipesh meets criteria for [facility]. Jump to Initiation Referring care team was notified via : Epic communication Referred by CONSTRUCTION AREA MANAGER at [facility] . Pt for dc to home 01/28 documented in this encounter Plan of Treatment Upcoming Encounters Date Type Department Care Team (Late st Contact Info) Description 01/29/2024 4:00 PM EST Scheduled Telephone [facility], [facility] [address] [place] [address] [facility], Nurse [facility] [address] [place] [address] 01/30/2024 11:30 AM EST Home Visit [facility], [facility] [address] [place] [address] [facility] Nurse [facility] [address] [facility] [address] 02/03/2024 1:00 PM EST Office Visit Family Practice [facility] 200 [facility] [place] [address] Kassandra Farfan PAIdalia 200 [facility], [place] [address] 02/09/2024 9:30 AM EDT Cardiac Studies Cardiac Studies, [facility] 132 [facility] [place] [address] 02/28/2024 10:00 AM EDT Home Visit [facility], [facility] [address] [place] [address] Glendy Skinner PA-C [address] [facility] [address] 03/07/2024 10:00 AM EDT Office Visit Cardiology, [address] [place] [address] Soila Esparza CRNP [address] [place] [address] 03/07/2024 1:40 PM EDT Office Visit Family Practice [facility] 200 [facility] [place] [address] Rik Alan DO [address] [facility] [place] [address] 03/28/2024 9:20 AM EDT Office Visit Nephrology, [facility] 200 [facility] [place] [address] Yaima Green MD [address] [facility] [place] [address] Scheduled Procedures Name Priority Associated Diagnoses Date/Ti [...] D LEVEL ONCE IN A LIFETIME-USE SMARTSET# [id number] Completed 02/20/2020, 11/09/2017, 04/14/2016, Additional history exists [...] filedocumented as of this encounter Care Teams Physical Education Specialist Relationship Specialty Start Date End Date Rik Alan DO [address] [place] [address] PCP - General Family Medicine 04/17/16 documented as of this encounter
--- OUTSIDE RECORDS SUMMARY | 2024-01-29 21:02 | External Medical Summary | Summary of Care ---
Author Name Unknown Organization [facility] Address [address] [facility] [place] [address] Phone [phone] Care Team Providers Care Flooring Installer Name Role Phone Dayanna Rik Shamika CH Primary Care Provider [phone] Reason for Visit * Reason Onset Date Comments [facility]: Engagement 01/27/2024 Encounter Details Date Type Department Care Team (Late st Contact Info) Description 01/27/2024 Telephone [facility], [facility] [address] [facility] [place] [address] [facility], Nurse [facility] [address] [place] [address] [facility]: Engagement Allergies Active Allergy Reactions Criticality Noted Date [...] maintenance. 20 mL 1 05/26/2023 Active Nystatin 949523 UNIT/GM External Powder 3 times a day. [...] 11/11/2023 Active Vitamin D (Ergocalciferol) 1.25 MG (05122 UT) Oral Capsule (Drisdol) take 1 capsule [...] (Aaron/J&J) 03/09/2021 Pneumococcal Conjugate Vacci ne, 20-valent ([id number]) 02/24/2023 Seasonal Influenza, PF, 6 M & [...] Encounter - Kristan Bryan LPN - 01/27/2024 2:12 PM EST [facility] Enrollment Form Screening: Referral Source: PCP/Specialty Primary Reason for Referral (Select most relevant): No data was found Engagement: Engagement Attempt 1: Contacted - Agreed to home-based services Scheduled appointment information: 3/3 w M Graham- and 02/27 w M Brody Home Information: No data was found Advance Care Planning (ACP): No data was found Has Living Will or Advance Directive: No data was found Anticipated Sub-Program: Focused Care Management (3-9 months) Confirmation of Sub-Program Type (by care produce production team member): No data was found Handoff Information: Current care team notified via: No data was found Current telemonitoring equipment: No data was found documented in this encounter Plan of Treatment Upcoming Encounters Date Type Department Care Team (Late st Contact Info) Description 01/29/2024 4:00 PM EST Scheduled Telephone [facility], [facility] [address] [place] [address] [facility], Nurse [facility] [address] [place] [address] [address] 01/30/2024 11:30 AM EST Home Visit [facility], [facility] [address] [place] [address] [facility], Nurse [facility] [address] [place] [address] [address] 02/03/2024 1:00 PM EST Office Visit Family [facility] [place] [address] Kassandra Farfan PA-C [address] [facility] [place] [address] 02/09/2024 9:30 AM EDT Cardiac Studies Cardiac Studies, [facility] 132 [facility] [place] [address] 02/28/2024 10:00 AM EDT Home Visit [facility], [facility] [address] [place] [address] Glendy Skinner PA-C [address] [address] 03/07/2024 10:00 AM EDT Office Visit Cardiology, [facility] [address] [place] [address] Soila Esparza CRNP [address] [place] [address] 03/07/2024 1:40 PM EDT Office Visit Family Practice [facility] [address] [facility] [place] [address] Rik Alan, [address] [facility] [place] [address] 03/28/2024 9:20 AM EDT Office Visit Nephrology, [facility] [address] [facility] [place] [address] Yaima Green MD [address] [facility] [place] [address] Scheduled Procedures Name Priority Associated Diagnoses Date/Ti [...] D LEVEL ONCE IN A LIFETIME-USE SMARTSET# [id number] Completed 02/20/2020, 11/09/2017, 04/14/2016, Additional history exists [...] filedocumented as of this encounter Care Teams Flooring Installer Relationship Specialty Start Date End Date Rik Alan DO [address] [place] [address] PCP - General Family Medicine 04/17/16 documented as of this encounter
--- NOTE | 2024-01-29 22:06 | Emergency Department Note ---
Impression & Plan Cellulitis, Panniculitis, Acute kidney injury superimposed on CKD, Ambulatory dysfunction, COVID-19, Closed compression fracture of lumbar vertebra ED Provider Note Provider: Scott Paulson MD DATE OF SERVICE: 01/29/2024 CHIEF COMPLAINT: Cannot care for at home, nausea, skin wound HISTORY OF PRESENT ILLNESS: Patient is a 63-year-old female history of morbid obesity, heart failure, CKD, hypothyroidism, and hypertension presenting here today via ambulance from her home. Was hospitalized here last month and spent the [facility] Discharged home today. Very shaky and walker to her bed at home today. I will get up and care for self at home. Boyfriend who she lives with his concerns he cannot care for and has large wounds. Has a lot of irritation on the buttocks and left hip region as well as under her abdominal pannus and in her leg pannus this. She experienced a bit of nausea and when she was certainly he is little bit of pain in her chest. States she has had this evaluated before and told was not her heart. Denies any falls today. No fevers reported but some shakiness the last week or 2. She and boyfriend do not feel that she can be cared for at home and is concerned for infection of her wounds. PAST MEDICAL HISTORY: As noted above MEDICATIONS: Reviewed home medications. Appears to currently be on Keflex as well as Eliquis. SOCIAL HISTORY: Normally has been living at home with boyfriend but recently at [facility] and discharged there today. PHYSICAL EXAM: GENERAL: alert and oriented in no acute distress on stretcher Head: normocephalic and atraumatic EYES: No injection, discharge or icterus. NECK: Trachea midline. ENT: Mucous membranes pink and moist. LUNGS: Airway patent. No retractions. Breath sounds clear but somewhat distant bilaterally HEART: Regular rate and rhythm. No chest wall tenderness ABDOMEN: Soft, obese, nontender. Under the abdominal pannus areas of irritation with erythema but no crepitus SKIN: Acyanotic, warm, dry, without rashes EXTREMITIES: Fairly obese lower extremities without obvious weeping but multiple small wounds in the intravenous areas/folds that appear mildly erythematous. There is a several centimeter wound on the left hip. NEUROLOGICAL: No focal deficits. No aphasia. No facial droop or slurred speech. EK beats minute sinus rhythm with PAC. No PVC. No acute ST segment elevation or depression with a QTc of 417 and some baseline artifact present. CONTINUOUS CARDIAC MONITORING: was ordered and showed a heart rate of bpm in 1 view chest x-ray per interpretation: No evidence of pneumonia or pneumothorax. Patient's laboratory studies and imaging reviewed. Differential includes Infection, dehydration, metabolic abnormality, hypo/hyperglycemia, electrolyte disturbance, anemia, hypoxia, cardiac sources, intracerebral event, toxicologic, neurologic, as well as other pathologies. IMPRESSION/MEDICAL DECISION MAKING: Patient unfortunately fairly obese and appears to have areas of irritation and infection in several of the pannicular folds of her lower extremities and abdomen. There is an area of wound and erythema as well as some slight granulation to the left hip region as well. Not severely deep but concerning for infection. Multiple medical comorbidities on long-term anticoagulation. Benign abdomen. EKG and troponin sent but doubt this represents ACS. Has been on Keflex. Will expand to daptomycin given her renal dysfunction as well as Zosyn for broad antimicrobial coverage. Miconazole powder was also ordered as some the areas do appear little bit more candidal/fungal in nature. Blood work here significant for leukocytosis of 18. Slightly improved anemia hemoglobin 8.8. No severe electrolyte abnormality but worsened creatinine today of 2.38. No lactate elevation. No transaminitis. CK not elevated. Troponin not significantly elevated 19 and doubt this represents ACS. Procalcitonin 0.29. Digoxin therapeutic. With a bit of FLETCHER on top of her CKD, will complete a CT abdomen pelvis to exclude other acute intra-abdominal complaint or signs of obstruction without contrast. Stent to the left kidney appears intact. CT reports indicate a acute subacute L1 compression fracture as well likely complaining of some pain. No retropulsion noted on imaging by report. Gently given 500 cc of normal saline for hydration but will be careful avoid overhydration given her history of heart failure. Covered broadly again with Zosyn and daptomycin for antimicrobial coverage. Will obtain Danielle catheter placement for wound care and healing. Secondarily there are obviously significant care issues and barriers to care at home given her size and given the inability for appropriate care of both the patient as well as the boyfriend she lives with her requesting that she be placed. Will bring into the hospital for further care of what appears to be some cellulitis. Patient also incidentally positive for COVID-19. Likely from recent senior living for stay. Boyfriend updated. Hospitalist contacted for further care here. DIAGNOSIS: Panniculitis, cellulitis, FLETCHER, ambulatory dysfunction, COVID-19, lumbar compression fracture DISPOSITION: Hospitalist will evaluate Patient was agreeable with this plan. Past Med/Surg History Medical History Urolithiasis Morbid obesity with BMI of 60.0-69.9, adult Frequent urination at night Pre-diabetes Neuropathy Atrial fibrillation on Eliquis Cardiac murmur Follows with Dr. 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 Beliefs That Will Affect Care: None Current Living Situation: Significant Other Current Living Situation Comment: Home with Fiancee How many Children do You have: 0 Feels Safe at Home: Yes Assistive Devices: Cane and Walker Allergies Allergies Allergy/AdvReac Type Severity Reaction Status Date / Time lisinopril Allergy Intermediate Cough Verified 12/05/23 12:35 mineral oil Allergy rash to Verified 12/13/23 15:13 "Baby Oil" (mineral oil/fragrance/vit E) nickel Allergy itching Verified 12/24/22 08:43 simvastatin AdvReac Unknown Muscle Pain Verified 12/05/23 12:35 Home Meds Home Medications Medication Instructions Recorded Confirmed cephalexin 500 mg capsule 500 mg PO TID 01/29/24 01/29/24 torsemide 20 mg tablet 20 mg PO QAM 01/29/24 01/29/24 Previous Rx's Medication Instructions Recorded ascorbic acid (vitamin C) 500 mg 500 mg PO QAM 30 days #30 tabs 01/06/24 tablet (Vitamin C) digoxin 125 mcg (0.125 mg) tablet 0.125 mg PO MoWeFr@1600 30 days 01/06/24 (Digitek) #13 tabs docusate sodium 100 mg capsule 100 mg PO BID 30 days #60 caps 01/06/24 metoprolol succinate 50 mg 100 mg (2 x 50 mg) PO BID 30 days 01/06/24 tablet,extended release 24 hr #120 tabs oxycodone-acetaminophen 10 mg-325 1 tab PO Q4H PRN severe pain #12 01/06/24 mg tablet tabs potassium chloride 20 mEq 20 meq PO DAILY 30 days #30 tabs 01/06/24 tablet,extended release alendronate 70 mg tablet 70 mg PO WK 30 days #30 tabs 01/07/24 apixaban 5 mg tablet (Eliquis) 5 mg PO BID 30 days #60 tabs 01/07/24 atorvastatin 40 mg tablet 40 mg PO DAILY 30 days #30 tabs 01/07/24 benzonatate 100 mg capsule 100 mg PO TID PRN cough #20 caps 01/07/24 diclofenac sodium 1 % topical gel 4 g EXT Q6H PRN knee pain 30 days 01/07/24 (Voltaren Arthritis Pain) #100 grams gabapentin 300 mg capsule 300 mg PO HS 30 days #30 caps 01/07/24 hydroxyzine HCl 25 mg tablet 25 - 50 mg (1 - 2 x 25 mg) PO Q6H 01/07/24 PRN itching #20 tabs levothyroxine 100 mcg tablet 100 mcg PO QAM 30 days #0 tabs 01/07/24 (Euthyrox) miconazole nitrate 2 % topical 1 applic EXT BID PRN fungal 01/07/24 powder (Desenex) infection 30 days #85 grams Results & Data (ED) Vital Signs Vital Signs - 24 hr 01/29/24 20:24 01/29/24 20:37 01/29/24 22:24 Temperature 36.4 C L Temperature Source Oral Pulse Rate 70 Pulse Rate [Apical] 69 Pulse Rate from SpO2 Sensor Pulse Rhythm [Apical] Regular Respiratory Rate 16 18 Respiratory Effort / Characteristics Non-Labored Spontaneous Non-Labored Spontaneous Respiratory Depth Normal Normal Blood Pressure Blood Pressure [Right Arm] 127/61 Blood Pressure Mean Blood Pressure Mean [Right Arm] 83 Pulse Oximetry 99 Oxygen Delivery Method Room Air Room Air Nasal Cannula Sepsis Recent Fever Within 48 Hours No Sepsis New/Unexplained Change in Mental Status N/A Sepsis Action Taken by Nursing No Action Required 01/29/24 22:34 01/29/24 23:00 01/30/24 00:33 Temperature Temperature Source Pulse Rate 71 66 70 Pulse Rate [Apical] Pulse Rate from SpO2 Sensor 67 Pulse Rhythm [Apical] Respiratory Rate 18 25 H Respiratory Effort / Characteristics Respiratory Depth Blood Pressure 139/66 Blood Pressure [Right Arm] Blood Pressure Mean 90 Blood Pressure Mean [Right Arm] Pulse Oximetry 96 95 Oxygen Delivery Method Room Air Sepsis Recent Fever Within 48 Hours Sepsis New/Unexplained Change in Mental Status Sepsis Action Taken by Nursing 01/30/24 01:05 Temperature Temperature Source Pulse Rate 69 Pulse Rate [Apical] Pulse Rate from SpO2 Sensor 70 Pulse Rhythm [Apical] Respiratory Rate 23 Respiratory Effort / Characteristics Respiratory Depth Blood Pressure 117/39 L Blood Pressure [Right Arm] Blood Pressure Mean 65 Blood Pressure Mean [Right Arm] Pulse Oximetry 100 Oxygen Delivery Method Room Air Sepsis Recent Fever Within 48 Hours Sepsis New/Unexplained Change in Mental Status Sepsis Action Taken by Nursing Laboratory Data 01/29/24 21:47 01/29/24 21:47 Lab Results 01/29/24 01/29/24 01/30/24 Range/Units 21:47 22:17 00:00 WBC 18.83 H (4.8-10.8) K/ul RBC 3.32 L (4.20-5.40) M/uL Hgb 8.8 L (12.0-16.0) g/dl Hct 29.7 L (37.0-47.0) % MCV 89.5 (80.0-100.0) fL MCH 26.5 (25.0-34.0) pg MCHC 29.6 L (32.0-36.0) g/dL RDW Std Deviation 60.6 H (36.4-46.3) fL RDW Coeff of Johnny 18.5 H (11.5-14.5) % Plt Count 370 (130-400) K/uL MPV 9.5 (9.4-12.4) fL Immature Gran % (Auto) 0.7 % Neut % (Auto) 74.2 % Lymph % (Auto) 13.4 % [place] % (Auto) 11.1 % Eos % (Auto) 0.3 % Baso % (Auto) 0.3 % Neut # (Auto) 13.97 H (1.40-6.50) K/uL Lymph # (Auto) 2.52 (1.20-3.40) K/uL [place] # (Auto) 2.09 H (0.11-0.59) K/uL Eos # (Auto) 0.05 (0.00-0.50) K/uL Baso # (Auto) 0.06 (0.00-0.20) K/uL Immature Gran # (Auto) 0.14 (0.01-0.20) K/uL PT 14.7 H (9.0-12.0) Seconds INR 1.4 H (0.9-1.1) Sodium 139 (136-145) mmol/L Potassium 4.3 (3.5-5.1) mmol/L Chloride 101 (98-107) mmol/L Carbon Dioxide 29 (21-32) mmol/L Anion Gap 9 (3-11) BUN 37 H (6-23) mg/dl Creatinine 2.38 H (0.6-1.2) mg/dl Est Cr Clr Drug Dosing 39.1 ml/min Est GFR ( Amer) 24.5 ml/min Est GFR (Non-Af Amer) 21.1 ml/min BUN/Creatinine Ratio 15.5 (10-20) Glucose 121 H (70-99(Fasting)) mg/dl Lactate 1.8 (0.4-2.0) mmol/L Calcium 7.9 L (8.6-10.3) mg/dl Magnesium 1.8 (1.7-2.4) mg/dl Total Bilirubin 0.8 (0.2-1.0) mg/dl AST 30 (13-39) U/L ALT 20 (7-52) U/L Alkaline Phosphatase 98 (34-104) U/L Total Creatine Kinase 100 (26-192) U/L Troponin I High Sens 19.0 H (0-14) pg/ml Total Protein 6.1 (6.0-8.3) gm/dl Albumin 2.7 L (3.4-5.0) gm/dl Globulin 3.4 (2.5-4.0) gm/dl Albumin/Globulin Ratio 0.8 L (0.9-2) Procalcitonin 0.29 (0-0.5) ng/ml TSH 2.163 (0.300-4.500) uIu/ml Urine Color Red Urine Appearance Turbid A (Clear) Urine pH 5.0 (4.5-7.5) Ur Specific [place] 1.015 (1.000-1.030) Urine Protein 3+ H (Negative) Urine Glucose (UA) Trace H (Negative) Urine Ketones 1+ H (Negative) Urine Blood 3+ H (Negative) Urine Nitrite Negative (Negative) Urine Bilirubin 2+ H (Negative) Urine Urobilinogen Negative (Negative) Ur Leukocyte Esterase 3+ H (Negative) Urine RBC >30 H (0-4) /hpf Urine WBC >30 H (0-5) /hpf Ur Epithelial Cells 10-20 H (0-5) /lpf Urine Bacteria 2+ H (Negative) Urine Yeast Budding w/ Hyphae A (None Prsent) Digoxin 0.9 (0.8-2.0) ng/ml SARS-CoV-2 (PCR) POSITIVE (Negative) Influenza Type A (PCR) Negative (Neg) Influenza Type B (PCR) Negative (Neg) RSV (RT-PCR) Negative (Neg) Administered Medications Daptomycin 400 mg/ Syringe 8 mls @ 4 mls/min IV Q24H [facility]; Protocol Stop: 01/31/24 21:59 Last Admin: 01/29/24 22:22 Dose: 4 mls/min Documented By: [facility] Miconazole Nitrate (Miconazole Nitrate 2% Cr 30 Gm Tube) 1 appln EXT BID BALJEET Stop: 02/28/24 21:59 Last Admin: 01/29/24 22:24 Dose: 1 appln Documented By: [facility] Discontinued Medications Piperacillin Sod/Tazobactam Sod (Zosyn) 4.5 gm in 100 mls @ 200 mls/hr IV NOW ONE Stop: 01/29/24 22:26 Last Infusion: 01/29/24 23:02 Dose: Infused Documented By: [facility] Admin: 01/29/24 22:12 Dose: 200 mls/hr Documented By: [facility] Sodium Chloride (Nss) 500 mls @ 999 mls/hr IV .Q31M ONE Stop: 01/29/24 23:33 Last Infusion: 01/30/24 00:46 Dose: Infused Documented By: [facility] Admin: 01/30/24 00:14 Dose: 999 mls/hr Documented By: [facility] Ondansetron HCl (Ondansetron Inj 2 Mg/Ml 2 Ml Vial) 4 mg IV NOW STA Stop: 01/29/24 21:58 Last Admin: 01/29/24 22:21 Dose: 4 mg Documented By: [facility] Imaging Data Radiologist's Impression: Abdomen/Pelvis CT 01/29/24 23:02 Exam(s): CT ABDOMEN + PELVIS Without Contrast EXAM: CT Abdomen and Pelvis Without Intravenous Contrast CLINICAL HISTORY: Reason for exam: fletcher, elev wbc, nausea, back pain. TECHNIQUE: Axial computed tomography images of the abdomen and pelvis without intravenous contrast. CTDI is 38.2 mGy and DLP is 1980.77 mGy-cm. Automated exposure control was utilized for the study. A dose lowering technique was utilized adhering to the principles of ALARA. COMPARISON: CT abdomen and pelvis 12/04/23 FINDINGS: Heart size is normal. There are coronary artery calcifications and aortic valvular calcifications. Lung bases are clear. Liver is unremarkable. Gallbladder appears normal, without calcified stone or inflammatory change. There is no biliary dilatation. Spleen, pancreas, and adrenal glands are unremarkable. There are 2 nonobstructing right kidney stones measuring 8 mm at the mid pole and 8 mm of the lower pole. There is no right-sided hydroureteronephrosis. There are 2 stones within a dilated left renal pelvis measuring 8 mm and 13 mm. There is mild hydronephrosis of the left kidney, new from prior. A left ureteral stent is in place, appropriately positioned. Urinary bladder is unremarkable. Uterus appears normal. Aorta is calcified but normal in caliber. There is no adenopathy, free fluid, or free air. Appendix is normal. There is diverticulosis without diverticulitis. There is no bowel obstruction or inflammatory change. There is bilateral femoral neck screw fixation. There is an acute/subacute 70% L1 compression fracture which is new from prior exam without significant retropulsion. Osseous structures appear otherwise intact. IMPRESSION: 1. Acute/subacute 70% L1 compression fracture, new from prior. 2. Left ureteral stent in place. Mild left-sided hydroureteronephrosis, worsened from prior. There are 2 stones within the dilated renal pelvis, the larger stone measuring 13 mm. 3. Nonobstructing right kidney stones. No right-sided hydronephrosis. Electronically signed by: Ty Rock M.D. 01/29/24 23:45 PM Discharge Plan Visit Data Chief Complaint: Weakness Stated Complaint: WEAKNESS UNABLE TO AMBULATE; EMISIS; ED Provider: Scott Paulson Discharge Problem: Cellulitis, Panniculitis, Acute kidney injury superimposed on CKD, Ambulatory dysfunction, COVID-19, Closed compression fracture of lumbar vertebra Patient Disposition: Being Evaluated by Hospitalist Discharge Instructions Interventions: ED Discharge Assessment Last Done: 01/30/24 02:07
[2024-01-29] MEDS: PIPERACILLIN/TAZOBACTAM 4.5 GM/100 ML BAG IV ONE (22:12)
[2024-01-29] MEDS: ONDANSETRON INJ 2 MG/ML 2 ML VIAL IV STA (22:21)
[2024-01-29] MEDS: DAPTOmycin 400 MG in SYRINGE 0 ML IV SCH (22:22)
[2024-01-29] MEDS: MICONAZOLE NITRATE 2% CR 30 GM TUBE EXT SCH (22:24)
[2024-01-29 22:27] LABS: Albumin Globulin Ratio 0.8 (0.9-2); Albumin Level 2.7 gm/dl (3.4-5.0); BUN Creatinine Ratio 15.5 (10-20); Bilirubin,Total 0.8 mg/dl (0.2-1.0); Calcium 7.9 mg/dl (8.6-10.3); Creatinine Clr Calc Pharmacy 39.1 ml/min; Est GFR (African American) 24.5 ml/min; Est GFR (Non-African American) 21.1 ml/min; Globulin 3.4 gm/dl (2.5-4.0); Magnesium 1.8 mg/dl (1.7-2.4); Potassium 4.3 mmol/L (3.5-5.1); Total Protein 6.1 gm/dl (6.0-8.3)
[2024-01-29 22:32] LABS: Basophils # (auto) 0.06 K/uL (0.00-0.20); Basophils % (auto) 0.3 %; Eosinophils # (auto) 0.05 K/uL (0.00-0.50); Eosinophils % (auto) 0.3 %; Hematocrit (blood only) 29.7 % (37.0-47.0); Hemoglobin 8.8 g/dl (12.0-16.0); Immature Granulocytes # (auto) 0.14 K/uL (0.01-0.20); Immature Granulocytes % (auto) 0.7 %; Lymphocytes # (auto) 2.52 K/uL (1.20-3.40); Lymphocytes % (auto) 13.4 %; Mean Corpuscular Hemoglobin 26.5 pg (25.0-34.0); Mean Corpuscular Hgb Conc 29.6 g/dL (32.0-36.0); Mean Corpuscular Volume 89.5 fL (80.0-100.0); Mean Platelet Volume 9.5 fL (9.4-12.4); Monocytes # (auto) 2.09 K/uL (0.11-0.59); Monocytes % (auto) 11.1 %; Neutrophils # (auto) 13.97 K/uL (1.40-6.50); Neutrophils % (auto) 74.2 %; Platelet Count 370 K/uL (130-400); RDW Coefficient of Variation 18.5 % (11.5-14.5); RDW Standard Deviation 60.6 fL (36.4-46.3); Red Blood Count 3.32 M/uL (4.20-5.40); White Blood Count 18.83 K/ul (4.8-10.8)
[2024-01-29 22:40] LABS: INR 1.4 (0.9-1.1); Prothrombin Time 14.7 Seconds (9.0-12.0)
[2024-01-29 22:43] LABS: Thyroid Stimulating Hormone 2.163 uIu/ml (0.300-4.500)
[2024-01-29 23:15] LABS: Influenza A virus by PCR Negative (Neg); Influenza B virus by PCR Negative (Neg); RSV by PCR Negative (Neg); SARS CoV2 RNA(COVID-19) Ceph POSITIVE (Negative)
--- NOTE | 2024-01-29 23:46 | CT Scan Report ---
Exam(s): CT ABDOMEN + PELVIS Without Contrast EXAM: CT Abdomen and Pelvis Without Intravenous Contrast CLINICAL HISTORY: Reason for exam: marlin, elev wbc, nausea, back pain. TECHNIQUE: Axial computed tomography images of the abdomen and pelvis without intravenous contrast. CTDI is 38.2 mGy and DLP is 1980.77 mGy-cm. Automated exposure control was utilized for the study. A dose lowering technique was utilized adhering to the principles of ALARA. COMPARISON: CT abdomen and pelvis 12/04/23 FINDINGS: Heart size is normal. There are coronary artery calcifications and aortic valvular calcifications. Lung bases are clear. Liver is unremarkable. Gallbladder appears normal, without calcified stone or inflammatory change. There is no biliary dilatation. Spleen, pancreas, and adrenal glands are unremarkable. There are 2 nonobstructing right kidney stones measuring 8 mm at the mid pole and 8 mm of the lower pole. There is no right-sided hydroureteronephrosis. There are 2 stones within a dilated left renal pelvis measuring 8 mm and 13 mm. There is mild hydronephrosis of the left kidney, new from prior. A left ureteral stent is in place, appropriately positioned. Urinary bladder is unremarkable. Uterus appears normal. Aorta is calcified but normal in caliber. There is no adenopathy, free fluid, or free air. Appendix is normal. There is diverticulosis without diverticulitis. There is no bowel obstruction or inflammatory change. There is bilateral femoral neck screw fixation. There is an acute/subacute 70% L1 compression fracture which is new from prior exam without significant retropulsion. Osseous structures appear otherwise intact. IMPRESSION: 1. Acute/subacute 70% L1 compression fracture, new from prior. 2. Left ureteral stent in place. Mild left-sided hydroureteronephrosis, worsened from prior. There are 2 stones within the dilated renal pelvis, the larger stone measuring 13 mm. 3. Nonobstructing right kidney stones. No right-sided hydronephrosis. Electronically signed by: Ty Rock M.D. 01/29/24 23:45 PM
[2024-01-30] MEDS: SODIUM CHLORIDE 0.9% 500 ML IV ONE (00:14)
[2024-01-30 00:20] LABS: Appearance Urine Turbid (Clear); Bilirubin Urine 2+ (Negative); Blood Urine 3+ (Negative); Color Urine Red; Glucose Urine UA Trace (Negative); Ketones Urine 1+ (Negative); Leukocyte Esterase Urine 3+ (Negative); Nitrite Urine Negative (Negative); Protein Urine 3+ (Negative); Specific Gravity Urine 1.015 (1.000-1.030); Urobilinogen Urine Negative (Negative)
[2024-01-30 00:24] LABS: RBC Urine >30 /hpf (0-4); WBC Urine >30 /hpf (0-5)
[2024-01-30 00:25] LABS: Bacteria Urine 2+ (Negative)
--- NOTE | 2024-01-30 01:28 | History & Physical Report ---
Date of Service January 30, 2024 Assessment & Plan (1) Cellulitis: Plan: 63-year-old female with past medical significant for paroxysmal atrial fibrillation anticoagulated on Eliquis, tachybradycardia syndrome, HTN, HLD, hypothyroidism, obesity, kidney stones, neuropathy ,history of depression ,morbid obesity who was recently in the hospital for acute on chronic heart failure with preserved ejection fraction was aggressively diuresed, also had episode of rapid A-fib and FLETCHER and treated for UTI and discharged to rehab and patient was discharged home today comes back with weakness and ambulatory dysfunction. Patient says after going home today she could not able to walk and she was brought to the hospital. Feeling weak in the legs. Has some headache. Earlier had some nausea that resolved. Has some abdominal spasms. Danielle is draining dark urine. Normal bowel movements. Denies chest pain or shortness of breath. Currently no headache. Vision is blurry. No earache or runny nose currently. No sore throat. Appetite is down as per patient. Patient also had obstructive uropathy and s/p stent placement in October 2023. Supposed to follow with urology. She also had first diagnosed with COVID on May 04, 2023. Currently COVID still positive. Cellulitis Of lower extremities and panniculitis ER started Dapto and Zosyn which be continued Will follow response Possible fungal infection In the skin folds and groin region on miconazole cream Can consider Diflucan Chronic heart failure with preserved ejection fraction Continue home diuretics Monitor for volume overload A-fib On metoprolol and digoxin and Eliquis History of tachybradycardia syndrome seems refused pacemaker Will monitor. Questionable FLETCHER on CKD stage III Presented creatinine of 2.3 possibly close to baseline Will monitor labs Hypertension On metoprolol and torsemide will monitor Hyperlipidemia Holding statin while on Dapto Morbid obesity Bariatric bed Needs counseling Compression fracture of spine Subacute Pain control PT OT Consider Ortho consult COVID-19 Initially diagnosed in December 04 Possible old infection versus new Currently seems asymptomatic COVID precautions History of obstructive uropathy status post stent placement October 2023 Urinalysis shows UTI today On antibiotics as above Consider urology consult Hypothyroidism On Synthyroid Anemia Hemoglobin 8.8 Seems same as prior Will closely monitor DVT prophylaxis On Eliquis Disposition Med/tele Full code History of Present Illness Chief Complaint: Weakness, ambulatory dysfunction Primary Care Provider: Rik Alan DO 63-year-old female with past medical history significant for paroxysmal atrial fibrillation anticoagulated on Eliquis, tachybradycardia syndrome, HTN, HLD, hypothyroidism, obesity, kidney stones, neuropathy, history of depression ,morbid obesity who was recently in the hospital for acute on chronic heart failure with preserved ejection fraction was aggressively diuresed, also had episode of rapid A-fib and FLETCHER and treated for UTI and discharged to rehab and patient was discharged home today comes back with weakness and ambulatory dysfunction. Patient says after going home today she could not able to walk and she was brought to the hospital. Feeling weak in the legs. Has some headache. Earlier had some nausea that resolved. Has some abdominal spasms. Danielle is draining dark urine. Normal bowel movements. Denies chest pain or shortness of breath. Currently no headache. Vision is blurry. No earache or runny nose currently. No sore throat. Appetite is down as per patient. Patient also had obstructive uropathy and s/p stent placement in October 2023. Supposed to fo llow with urology. She also had first diagnosed with COVID on May 04, 2023. Currently COVID still positive. Past medical history. As mentioned above Past surgical history. Colonoscopy. Cystoscopy. Bilateral repair of hip fractures. Social history. No smoking. Alcohol rare. No drug use. Family history. Mother had cervical cancer. Stroke. Father had diabetes. Hypertension. Sister has arthritis. Allergies Allergy/AdvReac Type Severity Reaction Status Date / Time lisinopril Allergy Intermediate Cough Verified 12/05/23 12:35 mineral oil Allergy rash to Verified 12/13/23 15:13 "Baby Oil" (mineral oil/fragrance/vit E) nickel Allergy itching Verified 12/24/22 08:43 simvastatin AdvReac Unknown Muscle Pain Verified 12/05/23 12:35 Home Medications Medication Instructions Recorded Confirmed Type ascorbic acid (vitamin C) 500 mg 500 mg PO QAM 30 days #30 tabs 01/06/24 01/29/24 Rx tablet (Vitamin C) digoxin 125 mcg (0.125 mg) tablet 0.125 mg PO MoWeFr@1600 30 days 01/06/24 01/29/24 Rx (Digitek) #13 tabs docusate sodium 100 mg capsule 100 mg PO BID 30 days #60 caps 01/06/24 01/29/24 Rx metoprolol succinate 50 mg 100 mg (2 x 50 mg) PO BID 30 days 01/06/24 01/29/24 Rx tablet,extended release 24 hr #120 tabs oxycodone-acetaminophen 10 mg-325 1 tab PO Q4H PRN severe pain #12 01/06/24 01/29/24 Rx mg tablet tabs potassium chloride 20 mEq 20 meq PO DAILY 30 days #30 tabs 01/06/24 01/29/24 Rx tablet,extended release alendronate 70 mg tablet 70 mg PO WK 30 days #30 tabs 01/07/24 01/29/24 Rx apixaban 5 mg tablet (Eliquis) 5 mg PO BID 30 days #60 tabs 01/07/24 01/29/24 Rx atorvastatin 40 mg tablet 40 mg PO DAILY 30 days #30 tabs 01/07/24 01/29/24 Rx benzonatate 100 mg capsule 100 mg PO TID PRN cough #20 caps 01/07/24 01/29/24 Rx diclofenac sodium 1 % topical gel 4 g EXT Q6H PRN knee pain 30 days 01/07/24 01/29/24 Rx (Voltaren Arthritis Pain) #100 grams gabapentin 300 mg capsule 300 mg PO HS 30 days #30 caps 01/07/24 01/29/24 Rx hydroxyzine HCl 25 mg tablet 25 - 50 mg (1 - 2 x 25 mg) PO Q6H 01/07/24 01/29/24 Rx PRN itching #20 tabs levothyroxine 100 mcg tablet 100 mcg PO QAM 30 days #0 tabs 01/07/24 01/29/24 Rx (Euthyrox) miconazole nitrate 2 % topical 1 applic EXT BID PRN fungal 01/07/24 01/29/24 Rx powder (Desenex) infection 30 days #85 grams cephalexin 500 mg capsule 500 mg PO TID 01/29/24 01/29/24 History torsemide 20 mg tablet 20 mg PO QAM 01/29/24 01/29/24 History Past Med/Surg History Medical History Urolithiasis Morbid obesity with BMI of 60.0-69.9, adult Frequent urination at night Pre-diabetes Neuropathy Atrial fibrillation on Eliquis Cardiac murmur Follows with Dr. Olga Lidia BARRAZA (hyperlipidemia) Osteoporosis Hypothyroidism Tachycardia-bradycardia syndrome Hypertension Surgical History History of wisdom tooth extraction History of hip surgery BL Family History Other No family history of adverse response to anesthesia Social History Smoking Status: Former smoker Second Hand Exposure: No; Do You Dip or Chew Tobacco: No; Hx Alcohol Use: Yes Alcohol type: other Hx Substance Use: No Preferred Language: Macedonian Communication Ability: Effective Neonatologist Required: No Beliefs That Will Affect Care: None Current Living Situation: Significant Other Current Living Situation Comment: Home with Fiancee How many Children do You have: 0 Other Information That Helps Us Care for You: No Feels Safe at Home: Yes Safety Concerns: Feels Safe At This Time Assistive Devices: Denture - Upper, Denture - Lower and Walker Review of Systems Review of Systems: All systems reviewed & are unremarkable except as noted in HPI & below Physical Exam Physical Exam: General- Not in distress. Head- atraumatic Eyes- PERRL. ENT- oropharynx clear Neck- supple, no JVD. Lungs- clear to auscultation no wheezing or crackles Heart- regular rhythm; no murmur, no gallop. Abdomen- normal bowel sounds, soft, nontender, no distension. Extremities- b/l lower extremity edema seen. Mild erythema seen. Neuro- alert, oriented PERRL, no facial palsy; no dysarthria; obeys simple commands Skin- erythema in abdominal folds and groin region and skin folds in legs Results & Data Results & Data Vital Signs (Past 12 Hours) Vital Signs Temp Pulse Pulse Resp BP BP Pulse Ox 01/29/24 23:00 66 25 H 139/66 95 01/29/24 22:34 71 18 96 01/29/24 22:24 69 18 127/61 99 01/29/24 20:37 70 01/29/24 20:24 36.4 C L 16 O2 Del Method 01/29/24 23:00 01/29/24 22:34 Room Air 01/29/24 22:24 Room Air, Nasal Cannula 01/29/24 20:37 01/29/24 20:24 Room Air Diagnostic Findings Laboratory Results WBC 18.83 K/ul (4.8-10.8) H 01/29/24 21:47 RBC 3.32 M/uL (4.20-5.40) L 01/29/24 21:47 Hgb 8.8 g/dl (12.0-16.0) L 01/29/24 21:47 Hct 29.7 % (37.0-47.0) L 01/29/24 21:47 MCV 89.5 fL (80.0-100.0) 01/29/24 21:47 MCH 26.5 pg (25.0-34.0) 01/29/24 21:47 MCHC 29.6 g/dL (32.0-36.0) L 01/29/24 21:47 RDW Std Deviation 60.6 fL (36.4-46.3) H 01/29/24 21:47 RDW Coeff of Johnny 18.5 % (11.5-14.5) H 01/29/24 21:47 Plt Count 370 K/uL (130-400) 01/29/24 21:47 MPV 9.5 fL (9.4-12.4) 01/29/24 21:47 Immature Gran % (Auto) 0.7 % 01/29/24 21:47 Neut % (Auto) 74.2 % 01/29/24 21:47 Lymph % (Auto) 13.4 % 01/29/24 21:47 Dale % (Auto) 11.1 % 01/29/24 21:47 Eos % (Auto) 0.3 % 01/29/24 21:47 Baso % (Auto) 0.3 % 01/29/24 21:47 Neut # (Auto) 13.97 K/uL (1.40-6.50) H 01/29/24 21:47 Lymph # (Auto) 2.52 K/uL (1.20-3.40) 01/29/24 21:47 Dale # (Auto) 2.09 K/uL (0.11-0.59) H 01/29/24 21:47 Eos # (Auto) 0.05 K/uL (0.00-0.50) 01/29/24 21:47 Baso # (Auto) 0.06 K/uL (0.00-0.20) 01/29/24 21:47 Immature Gran # (Auto) 0.14 K/uL (0.01-0.20) 01/29/24 21:47 PT 14.7 Seconds (9.0-12.0) H 01/29/24 21:47 INR 1.4 (0.9-1.1) H 01/29/24 21:47 Sodium 139 mmol/L (136-145) 01/29/24 21:47 Potassium 4.3 mmol/L (3.5-5.1) 01/29/24 21:47 Chloride 101 mmol/L (98-107) 01/29/24 21:47 Carbon Dioxide 29 mmol/L (21-32) 01/29/24 21:47 Anion Gap 9 (3-11) 01/29/24 21:47 BUN 37 mg/dl (6-23) H 01/29/24 21:47 Creatinine 2.38 mg/dl (0.6-1.2) H 01/29/24 21:47 Est Cr Clr Drug Dosing 39.1 ml/min 01/29/24 21:47 Est GFR ( Amer) 24.5 ml/min 01/29/24 21:47 Est GFR (Non-Af Amer) 21.1 ml/min 01/29/24 21:47 BUN/Creatinine Ratio 15.5 (10-20) 01/29/24 21:47 Glucose 121 mg/dl (70-99(Fasting)) H 01/29/24 21:47 Lactate 1.8 mmol/L (0.4-2.0) 01/29/24 21:47 Calcium 7.9 mg/dl (8.6-10.3) L 01/29/24 21:47 Magnesium 1.8 mg/dl (1.7-2.4) 01/29/24 21:47 Total Bilirubin 0.8 mg/dl (0.2-1.0) 01/29/24 21:47 AST 30 U/L (13-39) 01/29/24 21:47 ALT 20 U/L (7-52) 01/29/24 21:47 Alkaline Phosphatase 98 U/L (34-104) 01/29/24 21:47 Total Creatine Kinase 100 U/L (26-192) 01/29/24 21:47 Troponin I High Sens 19.0 pg/ml (0-14) H 01/29/24 21:47 Total Protein 6.1 gm/dl (6.0-8.3) 01/29/24 21:47 Albumin 2.7 gm/dl (3.4-5.0) L 01/29/24 21:47 Globulin 3.4 gm/dl (2.5-4.0) 01/29/24 21:47 Albumin/Globulin Ratio 0.8 (0.9-2) L 01/29/24 21:47 Procalcitonin 0.29 ng/ml (0-0.5) 01/29/24 21:47 TSH 2.163 uIu/ml (0.300-4.500) 01/29/24 21:47 Urine Color Red 01/30/24 00:00 Urine Appearance Turbid (Clear) A 01/30/24 00:00 Urine pH 5.0 (4.5-7.5) 01/30/24 00:00 Ur Specific [place] 1.015 (1.000-1.030) 01/30/24 00:00 Urine Protein 3+ (Negative) H 01/30/24 00:00 Urine Glucose (UA) Trace (Negative) H 01/30/24 00:00 Urine Ketones 1+ (Negative) H 01/30/24 00:00 Urine Blood 3+ (Negative) H 01/30/24 00:00 Urine Nitrite Negative (Negative) 01/30/24 00:00 Urine Bilirubin 2+ (Negative) H 01/30/24 00:00 Urine Urobilinogen Negative (Negative) 01/30/24 00:00 Ur Leukocyte Esterase 3+ (Negative) H 01/30/24 00:00 Urine RBC >30 /hpf (0-4) H 01/30/24 00:00 Urine WBC >30 /hpf (0-5) H 01/30/24 00:00 Ur Epithelial Cells 10-20 /lpf (0-5) H 01/30/24 00:00 Urine Bacteria 2+ (Negative) H 01/30/24 00:00 Urine Yeast Budding w/ Hyphae (None Prsent) A 01/30/24 00:00 Digoxin 0.9 ng/ml (0.8-2.0) 01/29/24 21:47 SARS-CoV-2 (PCR) POSITIVE (Negative) 01/29/24 22:17 Influenza Type A (PCR) Negative (Neg) 01/29/24 22:17 Influenza Type B (PCR) Negative (Neg) 01/29/24 22:17 RSV (RT-PCR) Negative (Neg) 01/29/24 22:17 Impressions Abdomen/Pelvis CT 01/29/24 23:02 Exam(s): CT ABDOMEN + PELVIS Without Contrast EXAM: CT Abdomen and Pelvis Without Intravenous Contrast CLINICAL HISTORY: Reason for exam: fletcher, elev wbc, nausea, back pain. TECHNIQUE: Axial computed tomography images of the abdomen and pelvis without intravenous contrast. CTDI is 38.2 mGy and DLP is 1980.77 mGy-cm. Automated exposure control was utilized for the study. A dose lowering technique was utilized adhering to the principles of ALARA. COMPARISON: CT abdomen and pelvis 12/04/23 FINDINGS: Heart size is normal. There are coronary artery calcifications and aortic valvular calcifications. Lung bases are clear. Liver is unremarkable. Gallbladder appears normal, without calcified stone or inflammatory change. There is no biliary dilatation. Spleen, pancreas, and adrenal glands are unremarkable. There are 2 nonobstructing right kidney stones measuring 8 mm at the mid pole and 8 mm of the lower pole. There is no right-sided hydroureteronephrosis. There are 2 stones within a dilated left renal pelvis measuring 8 mm and 13 mm. There is mild hydronephrosis of the left kidney, new from prior. A left ureteral stent is in place, appropriately positioned. Urinary bladder is unremarkable. Uterus appears normal. Aorta is calcified but normal in caliber. There is no adenopathy, free fluid, or free air. Appendix is normal. There is diverticulosis without diverticulitis. There is no bowel obstruction or inflammatory change. There is bilateral femoral neck screw fixation. There is an acute/subacute 70% L1 compression fracture which is new from prior exam without significant retropulsion. Osseous structures appear otherwise intact. IMPRESSION: 1. Acute/subacute 70% L1 compression fracture, new from prior. 2. Left ureteral stent in place. Mild left-sided hydroureteronephrosis, worsened from prior. There are 2 stones within the dilated renal pelvis, the larger stone measuring 13 mm. 3. Nonobstructing right kidney stones. No right-sided hydronephrosis. Electronically signed by: Ty Rock M.D. 01/29/24 23:45 PM ECG Additional Comments: ECG. Sinus rhythm with PACs with aberration conduction rate of 74. Nonspecific ST wave abnormalities. Code Status & VTE Plan VTE Prophylaxis Plan VTE Prophylaxis will be ordered: Yes
[2024-01-30] MEDS ORDERED: DICLOFENAC SOD 1% GEL 100 GM TUBE EXT PRN (02:07)
[2024-01-30] MEDS ORDERED: BENZONATATE 100 MG CAPSULE PO PRN (02:07)
[2024-01-30] MEDS ORDERED: NITROGLYCERIN SL 0.4 MG/TAB TAB SL PRN (02:07)
[2024-01-30] MEDS: PIPERACILLIN/TAZOBACTAM 4.5 GM in DEXTROSE 5% MINI-B 100 ML IV SCH (03:47)
[2024-01-30] MEDS: LEVOTHYROXINE SODIUM 100 MCG TABLET PO SCH (07:00)
--- NOTE | 2024-01-30 07:35 | XRay Report ---
XR chest 1V portable HISTORY: 63 years-old Female weakness acute weakness COMPARISON: December 31, 2003 TECHNIQUE: AP view the chest FINDINGS: Cardiac silhouette is enlarged. Atherosclerosis of the aorta. No pneumothorax, pleural effusion, airs pace consolidation or pulmonary edema. Patient obesity limits the study. Bones appear grossly intact. IMPRESSION: Cardiomegaly without acute process. ACT 112: Negative or not required by law. The above report was generated using voice recognition software. It may contain grammatical, syntax o r spelling errors. Electronically signed by: Harsh Olivarez M.D. 01/30/2024 7:33 AM
[2024-01-30 07:46] LABS: Basophils # (auto) 0.05 K/uL (0.00-0.20); Basophils % (auto) 0.3 %; Eosinophils # (auto) 0.11 K/uL (0.00-0.50); Eosinophils % (auto) 0.6 %; Hemoglobin 7.9 g/dl (12.0-16.0); Immature Granulocytes # (auto) 0.11 K/uL (0.01-0.20); Immature Granulocytes % (auto) 0.6 %; Lymphocytes # (auto) 2.67 K/uL (1.20-3.40); Lymphocytes % (auto) 15.5 %; Mean Corpuscular Hemoglobin 27.1 pg (25.0-34.0); Mean Corpuscular Hgb Conc 30.4 g/dL (32.0-36.0); Mean Platelet Volume 9.3 fL (9.4-12.4); Monocytes # (auto) 1.68 K/uL (0.11-0.59); Monocytes % (auto) 9.8 %; Neutrophils % (auto) 73.2 %; Platelet Count 316 K/uL (130-400); RDW Coefficient of Variation 18.6 % (11.5-14.5); Red Blood Count 2.92 M/uL (4.20-5.40); White Blood Count 17.22 K/ul (4.8-10.8)
[2024-01-30 08:00] LABS: BUN Creatinine Ratio 16.8 (10-20); Calcium 7.5 mg/dl (8.6-10.3); Creatinine Clr Calc Pharmacy 38.6 ml/min; Est GFR (African American) 25.3 ml/min; Est GFR (Non-African American) 21.8 ml/min; Magnesium 1.9 mg/dl (1.7-2.4); Potassium 4.2 mmol/L (3.5-5.1)
[2024-01-30] MEDS: METOPROLOL SUCC 50MG EXT REL TAB PO SCH (08:13)
[2024-01-30] MEDS: DOCUSATE SODIUM 100 MG CAP PO SCH (08:13)
[2024-01-30 08:14] LABS: Polychromasia 1+
[2024-01-30] MEDS: ASCORBIC ACID 500 MG TAB PO SCH (08:14)
[2024-01-30] MEDS: APIXABAN 5 MG TABLET PO SCH (08:14)
[2024-01-30] MEDS: POTASSIUM CHLORIDE CRTAB 20 MEQ TABCR PO SCH (08:14)
[2024-01-30] MEDS: TORSEMIDE 20 MG TAB PO SCH (08:14)
--- NOTE | 2024-01-30 08:43 | Electrocardiogram Report ---
Test Reason : Blood Pressure : / mmHG Vent. Rate : 074 BPM Atrial Rate : 074 BPM P-R Int : 148 ms QRS Dur : 078 ms QT Int : 376 ms P-R-T Axes : 048 005 019 degrees QTc Int : 417 ms Poor data quality, interpretation may be adversely affected Sinus rhythm with Premature atrial complexes with Aberrant conduction Abnormal ECG When compared with ECG of 03-JAN-2024 15:57, Nonspecific ST and T wave abnormality no longer present Confirmed by Liam Melendez ([id number]) on 01/30/2024 8:42:54 AM Referred By: REFERRED SELF Confirmed By:Liam Melendez
--- NOTE | 2024-01-30 17:19 | Communication Note ---
Date of Service: January 30, 2024 Morbidly obese patient with multiple comorbid conditions was admitted with weak legs and inability to get up from commode and inability to ambulate to ambulate. She has been stable without any acute distress when I saw her in the emergency room. Her labs and medications were reviewed. A full progress note will be done tomorrow. Dr Mitch Rasmussen
[2024-01-30] MEDS: PIPERACILLIN/TAZOBACTAM 4.5 GM/100ML D5W IV ONE (19:15)
[2024-01-30] MEDS: GABAPENTIN 300 MG CAP PO SCH (20:41)
[2024-01-31 04:01] LABS: Basophils # (auto) 0.05 K/uL (0.00-0.20); Basophils % (auto) 0.3 %; Eosinophils # (auto) 0.27 K/uL (0.00-0.50); Eosinophils % (auto) 1.7 %; Hematocrit (blood only) 27.1 % (37.0-47.0); Hemoglobin 8.3 g/dl (12.0-16.0); Immature Granulocytes % (auto) 0.6 %; Lymphocytes # (auto) 2.24 K/uL (1.20-3.40); Lymphocytes % (auto) 14.2 %; Mean Corpuscular Hemoglobin 26.7 pg (25.0-34.0); Mean Corpuscular Hgb Conc 30.6 g/dL (32.0-36.0); Mean Corpuscular Volume 87.1 fL (80.0-100.0); Mean Platelet Volume 9.3 fL (9.4-12.4); Monocytes % (auto) 9.5 %; Neutrophils # (auto) 11.61 K/uL (1.40-6.50); Neutrophils % (auto) 73.7 %; Platelet Count 316 K/uL (130-400); RDW Coefficient of Variation 18.5 % (11.5-14.5); RDW Standard Deviation 58.9 fL (36.4-46.3); Red Blood Count 3.11 M/uL (4.20-5.40); White Blood Count 15.77 K/ul (4.8-10.8)
[2024-01-31 04:18] LABS: BUN Creatinine Ratio 17.5 (10-20); Calcium 7.4 mg/dl (8.6-10.3); Creatinine Clr Calc Pharmacy 42.3 ml/min; Est GFR (African American) 28.2 ml/min; Est GFR (Non-African American) 24.3 ml/min; Magnesium 1.8 mg/dl (1.7-2.4); Phosphorus 4.2 mg/dl (2.5-4.9); Potassium 3.9 mmol/L (3.5-5.1)
--- NOTE | 2024-01-31 17:06 | Hospitalist Progress Note ---
Date of Service January 31, 2024 Assessment & Plan (1) Cellulitis: Plan: 63-year-old female with past medical significant for paroxysmal atrial fibrillation anticoagulated on Eliquis, tachybradycardia syndrome, HTN, HLD, hypothyroidism, obesity, kidney stones, neuropathy ,history of depression ,morbid obesity who was recently in the hospital for acute on chronic heart failure with preserved ejection fraction was aggressively diuresed, also had episode of rapid A-fib and FLETCHER and treated for UTI and discharged to rehab and patient was discharged home today comes back with weakness and ambulatory dysfunction. Patient says after going home today she could not able to walk and she was brought to the hospital. Feeling weak in the legs. Has some headache. Earlier had some nausea that resolved. Has some abdominal spasms. Danielle is draining dark urine. Normal bowel movements. Denies chest pain or shortness of breath. Currently no headache. Vision is blurry. No earache or runny nose currently. No sore throat. Appetite is down as per patient. Patient also had obstructive uropathy and s/p stent placement in October 2023. Supposed to follow with urology. She also had first diagnosed with COVID on May 04, 2023. Currently COVID still positive. Cellulitis Lower extremities and panniculitis and also left lateral thigh and hip ER started Dapto and Zosyn which be continued Blood cultures are pending Afebrile but white count is elevated to 15.77 We will continue current antibiotic Fungal infection In the skin folds and groin region on miconazole cream Can consider Diflucan Urine is growing Katheryn albicans-doubt has any infection Chronic heart failure with preserved ejection fraction Continue home diuretics Monitor for volume overload No respiratory symptoms A-fib On metoprolol and digoxin and Eliquis History of tachybradycardia syndrome seems refused pacemaker Will monitor. Questionable FLETCHER on CKD stage III Presented creatinine of 2.3 possibly close to baseline Will monitor labs Hypertension On metoprolol and torsemide will monitor Hyperlipidemia Holding statin while on Dapto Morbid obesity Bariatric bed Needs counseling Compression fracture of spine Subacute Pain control PT OT Consider Ortho consult COVID-19 Initially diagnosed in December 04 Possible old infection versus new Currently seems asymptomatic COVID precautions-does not need to be on COVID precaution and the patient remains totally asymptomatic from COVID infection since December 04 History of obstructive uropathy status post stent placement October 2023 Urinalysis shows UTI today On antibiotics as above Consider urology consult Hypothyroidism On Synthyroid Anemia Hemoglobin 8.8 Seems same as prior Will closely monitor DVT prophylaxis On Eliquis Disposition Med/tele Full code Admission and Anticipated Discharge Date Admission Date: January 30, 2024 Subjective 01/31/2024 The patient was seen and examined in medical telemetry unit She has been complaining of pain all over but mostly lateral aspect of left hip and adjoining area of thigh and left knee and adjoining area Denies any shortness of breath or palpitation No fever and or chills Review of Systems Review of Systems: All systems reviewed and are unremarkable except as noted below Physical Exam Physical Exam: Lying in bed with some distress due to pain Constitutional: well developed, well nourished, + ill appearing and + morbidly obese Eyes: PERRL, conjunctivae normal, anicteric sclerae ENMT: external ear and nose normal, oropharynx normal Neck: trachea midline, no thyromegaly Respiratory: no respiratory distress Auscultation: + diminished lung sounds Cardiovascular: Rate/Rhythm: regular rate and regular rhythm; not tachycardic Heart Sounds: normal S1 and normal S2; no murmur Extremities: + edema (Bilateral leg edema 1-2+ with erythema involving the left lower leg and thi) Gastrointestinal (Abdomen): Inspection/Auscultation: normal bowel sounds; abdomen not distended Percussion/Palpation: abdomen soft; abdomen nontender Musculoskeletal: No acute arthritis involving any of the joint Neurologic: normal touch/pain/proprioception and moves all extremities (Afraid to move the left lower extremity due to pain) Lymphatic: no cervical or axillary lymphadenopathy Results & Data Results & Data Vital Signs (Past 12 Hours) Vital Signs Temp Pulse Pulse Resp BP Pulse Ox O2 Del Method 01/31/24 16:51 71 01/31/24 15:19 37 C 73 24 134/39 L 100 Room Air 01/31/24 09:03 75 18 145/61 H 98 Room Air 01/31/24 08:24 76 17 102/35 L 97 Room Air 01/31/24 07:40 74 01/31/24 06:25 75 16 119/47 L 98 Room Air Laboratory Results Short CBC 01/31/24 Range/Units 03:37 WBC 15.77 H (4.8-10.8) K/ul Hgb 8.3 L (12.0-16.0) g/dl Hct 27.1 L (37.0-47.0) % Plt Count 316 (130-400) K/uL BMP 01/31/24 03:37 Sodium 140 Potassium 3.9 Chloride 103 Carbon Dioxide 31 BUN 37 H Creatinine 2.12 H Glucose 95 Calcium 7.4 L Medications Administered Current Inpatient Medications Acetaminophen (Acetaminophen 325 Mg Tab) 650 mg PO Q4H PRN PRN Reason: Pain or Fever Stop: 02/29/24 02:06 Apixaban (Apixaban 5 Mg Tablet) 5 mg PO BID [facility] Stop: 02/29/24 08:59 Last Admin: 01/31/24 08:19 Dose: 5 mg Ascorbic Acid (Ascorbic Acid 500 Mg Tab) 500 mg PO QAM [facility] Stop: 02/29/24 08:59 Last Admin: 01/31/24 08:19 Dose: 500 mg Benzonatate (Benzonatate 100 Mg Capsule) 100 mg PO TID PRN PRN Reason: cough Stop: 02/29/24 02:06 Diclofenac Sodium (Diclofenac Sod 1% Gel 100 Gm Tube) 4 gm EXT Q6H PRN; Protocol PRN Reason: knee pain Stop: 02/29/24 02:06 Digoxin (Digoxin 0.125 Mg Tab) 0.125 mg PO MoWeFr@1600 [facility] Stop: 03/01/24 15:59 Docusate Sodium (Docusate Sodium 100 Mg Cap) 100 mg PO BID [facility] Stop: 02/29/24 08:59 Last Admin: 01/31/24 08:19 Dose: 100 mg Gabapentin (Gabapentin 300 Mg Cap) 300 mg PO BID [facility] Stop: 03/01/24 20:59 Hydroxyzine HCl (Hydroxyzine Hcl 25 Mg Tab) 25 - 50 mg PO Q6H PRN PRN Reason: itching Stop: 02/29/24 02:06 Daptomycin 400 mg/ Syringe 8 mls @ 4 mls/min IV Q24H [facility]; Protocol Stop: 01/31/24 21:59 Last Admin: 01/30/24 21:19 Dose: 4 mls/min Piperacillin Sod/Tazobactam (Sod 4.5 gm/ Dextrose) 100 mls @ 25 mls/hr IV Q8H [facility]; Protocol Stop: 02/06/24 03:59 Last Infusion: 01/31/24 16:32 Dose: Infused Levothyroxine Sodium (Levothyroxine Sodium 100 Mcg Tablet) 100 mcg PO DAILYBB [facility] Stop: 02/29/24 06:29 Last Admin: 01/31/24 06:26 Dose: 100 mcg Metoprolol Succinate (Metoprolol Succ 50mg Ext Rel Tab) 100 mg PO BID [facility] Stop: 02/29/24 08:59 Last Admin: 01/31/24 08:19 Dose: 100 mg Miconazole Nitrate (Miconazole Nitrate 2% Cr 30 Gm Tube) 1 appln EXT BID [facility] Stop: 02/28/24 21:59 Last Admin: 01/31/24 08:19 Dose: 1 appln Miconazole Nitrate (Miconazole Nitrate Powder 85 Gm) 1 appln EXT BID PRN PRN Reason: fungal infection Stop: 02/29/24 02:06 Nitroglycerin (Nitroglycerin Sl 0.4 Mg/Tab Tab) 0.4 mg SL Q5M PRN PRN Reason: Chest Pain Stop: 02/29/24 02:06 Ondansetron HCl (Ondansetron Inj 2 Mg/Ml 2 Ml Vial) 4 mg IV Q6H PRN PRN Reason: Nausea And Vomiting Stop: 03/01/24 09:25 Oxycodone/Acetaminophen (Oxycodone/Acetaminophen 10-325 Tab) 1 tab PO Q4H PRN PRN Reason: severe pain Stop: 02/13/24 02:06 Potassium Chloride (Potassium Chloride Crtab 20 Meq Tabcr) 20 meq PO DAILY [facility] Stop: 02/29/24 08:59 Last Admin: 01/31/24 08:19 Dose: 20 meq Torsemide (Torsemide 20 Mg Tab) 20 mg PO QAM [facility] Stop: 02/29/24 08:59 Last Admin: 01/31/24 08:20 Dose: 20 mg
[2024-01-31] MEDS: DIGOXIN 0.125 MG TAB PO SCH (19:55)
[2024-01-31] MEDS: GABAPENTIN 300 MG CAP PO SCH (19:58)
[2024-01-31] MEDS: MICONAZOLE NITRATE POWDER 85 GM EXT PRN (20:04)
[2024-02-01] MEDS: oxyCODONE/ACETAMINOPHEN 10-325 TAB PO PRN (04:20)
[2024-02-01 06:31] LABS: Basophils # (auto) 0.05 K/uL (0.00-0.20); Basophils % (auto) 0.5 %; Eosinophils # (auto) 0.26 K/uL (0.00-0.50); Eosinophils % (auto) 2.4 %; Hemoglobin 7.2 g/dl (12.0-16.0); Immature Granulocytes # (auto) 0.08 K/uL (0.01-0.20); Immature Granulocytes % (auto) 0.7 %; Lymphocytes # (auto) 2.42 K/uL (1.20-3.40); Lymphocytes % (auto) 22.3 %; Mean Corpuscular Hemoglobin 26.6 pg (25.0-34.0); Mean Corpuscular Volume 88.6 fL (80.0-100.0); Mean Platelet Volume 9.3 fL (9.4-12.4); Monocytes # (auto) 1.26 K/uL (0.11-0.59); Monocytes % (auto) 11.6 %; Neutrophils # (auto) 6.77 K/uL (1.40-6.50); Neutrophils % (auto) 62.5 %; Platelet Count 281 K/uL (130-400); RDW Coefficient of Variation 18.4 % (11.5-14.5); RDW Standard Deviation 59.5 fL (36.4-46.3); Red Blood Count 2.71 M/uL (4.20-5.40); White Blood Count 10.84 K/ul (4.8-10.8)
[2024-02-01 06:42] LABS: BUN Creatinine Ratio 18.7 (10-20); Calcium 6.9 mg/dl (8.6-10.3); Creatinine Clr Calc Pharmacy 48.4 ml/min; Est GFR (African American) 32.8 ml/min; Est GFR (Non-African American) 28.3 ml/min
[2024-02-01 06:55] LABS: Polychromasia 1+
[2024-02-01] MEDS: POTASSIUM CHLORIDE CRTAB 20 MEQ TABCR PO STA (10:01)
[2024-02-01] MEDS: LOPERAMIDE HCL 2 MG CAP PO PRN (13:43)
--- NOTE | 2024-02-01 14:25 | Hospitalist Progress Note ---
Date of Service February 01, 2024 Assessment & Plan (1) Cellulitis: Plan: 63-year-old female with past medical significant for paroxysmal atrial fibrillation anticoagulated on Eliquis, tachybradycardia syndrome, HTN, HLD, hypothyroidism, obesity, kidney stones, neuropathy ,history of depression ,morbid obesity who was recently in the hospital for acute on chronic heart failure with preserved ejection fraction was aggressively diuresed, also had episode of rapid A-fib and FLETCHER and treated for UTI and discharged to rehab and patient was discharged home today comes back with weakness and ambulatory dysfunction. Patient says after going home today she could not able to walk and she was brought to the hospital. Feeling weak in the legs. Has some headache. Earlier had some nausea that resolved. Has some abdominal spasms. Danielle is draining dark urine. Normal bowel movements. Denies chest pain or shortness of breath. Currently no headache. Vision is blurry. No earache or runny nose currently. No sore throat. Appetite is down as per patient. Patient also had obstructive uropathy and s/p stent placement in October 2023. Supposed to follow with urology. She also had first diagnosed with COVID on May 04, 2023. Currently COVID still positive. Cellulitis Lower extremities and panniculitis and also left lateral thigh and hip ER started Dapto and Zosyn which be continued Blood cultures are pending Afebrile but white count is elevated to 15.77 We will continue current antibiotic Cellulitis in the left leg is showing improvement, wound over left lateral upper thigh shows improvement to Will check MRSA swab Fungal infection In the skin folds and groin region on miconazole cream Can consider Diflucan Urine is growing Katheryn albicans-doubt has any infection and the patient is not immunocompromised Will not provide any oral Diflucan Chronic heart failure with preserved ejection fraction Continue home diuretics Monitor for volume overload No respiratory symptoms A-fib On metoprolol and digoxin and Eliquis History of tachybradycardia syndrome seems refused pacemaker Heart rate is controlled at 67/min Questionable FLETCHER on CKD stage III Presented creatinine of 2.3 possibly close to baseline Creatinine has been improving and it is 1.87 as of 02/01/2024 Hypertension On metoprolol and torsemide will monitor Hyperlipidemia Holding statin while on Dapto Morbid obesity Bariatric bed Needs counseling Compression fracture of spine Subacute Pain control PT OT Consider Ortho consult COVID-19 Initially diagnosed in December 04 Possible old infection versus new Currently seems asymptomatic COVID precautions-does not need to be on COVID precaution and the patient remains totally asymptomatic from COVID infection since December 04 History of obstructive uropathy status post stent placement October 2023 Urinalysis shows UTI today On antibiotics as above Consider urology consult Hypothyroidism On Synthyroid Anemia Hemoglobin 8.8 Seems same as prior Will closely monitor DVT prophylaxis On Eliquis Disposition Med/tele Full code Will get PT and OT evaluation and discharge accordingly Discussed with the in detail Admission and Anticipated Discharge Date Admission Date: January 30, 2024 Subjective 01/31/2024 The patient was seen and examined in medical telemetry unit She has been complaining of pain all over but mostly lateral aspect of left hip and adjoining area of thigh and left knee and adjoining area Denies any shortness of breath or palpitation No fever and or chills 02/01/2024 The patient was seen and examined in medical telemetry unit in presence of the She has been weak and lethargic Complains of pain all over but mainly left lateral thigh area and knee Denies any fever and or chills No abdominal pain, nausea or vomiting but has been having diarrhea Review of Systems Review of Systems: All systems reviewed and are unremarkable except as noted below Physical Exam Physical Exam: Lying in bed with some distress due to pain Constitutional: well developed, well nourished, + ill appearing and + morbidly obese Eyes: PERRL, conjunctivae normal, anicteric sclerae ENMT: external ear and nose normal, oropharynx normal Neck: trachea midline, no thyromegaly Respiratory: no respiratory distress Auscultation: + diminished lung sounds Cardiovascular: Rate/Rhythm: regular rate and regular rhythm; not tachycardic Heart Sounds: normal S1 and normal S2; no murmur Extremities: + edema (Bilateral leg edema 1-2+ with erythema involving the left lower leg and thi) Gastrointestinal (Abdomen): Inspection/Auscultation: normal bowel sounds; abdomen not distended Percussion/Palpation: abdomen soft; abdomen nontender Neurologic: normal touch/pain/proprioception and moves all extremities (Afraid to move the left lower extremity due to pain) Lymphatic: no cervical or axillary lymphadenopathy Results & Data Results & Data Vital Signs (Past 12 Hours) Vital Signs Temp Pulse Pulse Resp BP BP Pulse Ox 02/01/24 11:39 36.6 C 67 18 109/57 L 96 02/01/24 08:00 02/01/24 08:00 68 02/01/24 07:26 36.6 C 62 18 107/58 L 94 02/01/24 04:51 02/01/24 02:42 37.3 C 77 16 121/61 94 O2 Del Method 02/01/24 11:39 Room Air 02/01/24 08:00 Room Air 02/01/24 08:00 02/01/24 07:26 Room Air 02/01/24 04:51 Room Air 02/01/24 02:42 Room Air Laboratory Results Short CBC 02/01/24 Range/Units 05:59 WBC 10.84 H (4.8-10.8) K/ul Hgb 7.2 L (12.0-16.0) g/dl Hct 24.0 L (37.0-47.0) % Plt Count 281 (130-400) K/uL BMP 02/01/24 05:59 Sodium 141 Potassium 3.0 L D Chloride 102 Carbon Dioxide 29 BUN 35 H Creatinine 1.87 H Glucose 103 H Calcium 6.9 L Medications Administered Current Inpatient Medications Acetaminophen (Acetaminophen 325 Mg Tab) 650 mg PO Q4H PRN PRN Reason: Pain or Fever Stop: 02/29/24 02:06 Apixaban (Apixaban 5 Mg Tablet) 5 mg PO BID [facility] Stop: 02/29/24 08:59 Last Admin: 02/01/24 10:03 Dose: 5 mg Ascorbic Acid (Ascorbic Acid 500 Mg Tab) 500 mg PO QAM [facility] Stop: 02/29/24 08:59 Last Admin: 02/01/24 10:03 Dose: 500 mg Benzonatate (Benzonatate 100 Mg Capsule) 100 mg PO TID PRN PRN Reason: cough Stop: 02/29/24 02:06 Diclofenac Sodium (Diclofenac Sod 1% Gel 100 Gm Tube) 4 gm EXT Q6H PRN; Protocol PRN Reason: knee pain Stop: 02/29/24 02:06 Digoxin (Digoxin 0.125 Mg Tab) 0.125 mg PO MoWeFr@1600 [facility] Stop: 03/01/24 15:59 Last Admin: 01/31/24 19:55 Dose: 0.125 mg Docusate Sodium (Docusate Sodium 100 Mg Cap) 100 mg PO BID [facility] Stop: 02/29/24 08:59 Last Admin: 02/01/24 10:03 Dose: Not Given Gabapentin (Gabapentin 300 Mg Cap) 300 mg PO BID [facility] Stop: 03/01/24 20:59 Last Admin: 02/01/24 10:03 Dose: 300 mg Hydroxyzine HCl (Hydroxyzine Hcl 25 Mg Tab) 25 - 50 mg PO Q6H PRN PRN Reason: itching Stop: 02/29/24 02:06 Piperacillin Sod/Tazobactam (Sod 4.5 gm/ Dextrose) 100 mls @ 25 mls/hr IV Q8H [facility]; Protocol Stop: 02/06/24 03:59 Last Admin: 02/01/24 12:06 Dose: 25 mls/hr Levothyroxine Sodium (Levothyroxine Sodium 100 Mcg Tablet) [facility]: 02/29/24 06:29 Last Admin: 02/01/24 06:19 Dose: 100 mcg Loperamide HCl (Loperamide Hcl 2 Mg Cap) 2 mg PO Q3H PRN PRN Reason: Diarrhea Stop: 03/02/24 13:36 Last Admin: 02/01/24 13:43 Dose: 2 mg Metoprolol Succinate (Metoprolol Succ 50mg Ext Rel Tab) 100 mg PO BID [facility] Stop: 02/29/24 08:59 Last Admin: 02/01/24 10:03 Dose: 100 mg Miconazole Nitrate (Miconazole Nitrate 2% Cr 30 Gm Tube) 1 appln EXT BID [facility] Stop: 02/28/24 21:59 Last Admin: 02/01/24 10:07 Dose: Not Given Miconazole Nitrate (Miconazole Nitrate Powder 85 Gm) 1 appln EXT BID PRN PRN Reason: fungal infection Stop: 02/29/24 02:06 Last Admin: 02/01/24 10:04 Dose: 1 appln Nitroglycerin (Nitroglycerin Sl 0.4 Mg/Tab Tab) 0.4 mg SL Q5M PRN PRN Reason: Chest Pain Stop: 02/29/24 02:06 Ondansetron HCl (Ondansetron Inj 2 Mg/Ml 2 Ml Vial) 4 mg IV Q6H PRN PRN Reason: Nausea And Vomiting Stop: 03/01/24 09:25 Oxycodone/Acetaminophen (Oxycodone/Acetaminophen 10-325 Tab) 1 tab PO Q4H PRN PRN Reason: severe pain Stop: 02/13/24 02:06 Last Admin: 02/01/24 10:03 Dose: 1 tab Potassium Chloride (Potassium Chloride Crtab 20 Meq Tabcr) 20 meq PO DAILY [facility] Stop: 02/29/24 08:59 Last Admin: 02/01/24 10:04 Dose: 20 meq Torsemide (Torsemide 20 Mg Tab) 20 mg PO QAM [facility] Stop: 02/29/24 08:59 Last Admin: 02/01/24 10:04 Dose: 20 mg
[2024-02-02] MEDS: ONDANSETRON INJ 2 MG/ML 2 ML VIAL IV PRN (08:36)
[2024-02-02 09:56] LABS: Hematocrit (blood only) 25.6 % (37.0-47.0); Hemoglobin 7.7 g/dl (12.0-16.0)
[2024-02-02 10:06] LABS: BUN Creatinine Ratio 20.1 (10-20); Calcium 7.1 mg/dl (8.6-10.3); Creatinine Clr Calc Pharmacy 56.8 ml/min; Est GFR (African American) 39.9 ml/min; Est GFR (Non-African American) 34.4 ml/min; Potassium 3.6 mmol/L (3.5-5.1)
--- NOTE | 2024-02-02 10:17 | CT Scan Report ---
CT SCAN OF THE LUMBAR SPINE WITHOUT IV CONTRAST CLINICAL HISTORY: Low back pain. Fracture. COMPARISON STUDY: Abdominal CT scans dated 01/29/2024 and 12/04/2023. Lumbar spine radiographs dated 04/21. TECHNIQUE: CT scan of the lumbar spine is performed from the lower thoracic spine to the sacrum. Imag es are reviewed in the axial, sagittal, and coronal planes. IV contrast was not administered for this examination. A dose lowering technique was utilized adhering to the principles of ALARA. The examina tion is degraded by large body habitus, and by streak artifact from the body wall abutting the CT chito try. CT DOSE: 1610.96 mGy.cm FINDINGS: The skeletal structures are osteopenic. Again seen is an acute to subacute burst-type compr ession fracture of L1 with [id number] loss of height. Fracture involves the anterior, superio r, anterior, and posterior cortex. Fragments are retropulsed up to 4 mm. This does not contribute to significant central canal stenosis. There is no clear evidence of posterior element involvement. Para vertebral edema/hemorrhage is noted at this level. No additional acute or subacute fracture is seen i nvolving the lumbar spine. Vertebral body height is otherwise maintained throughout the lumbar spine. There is minimal anterolisthesis at L4-L5. Alignment is otherwise preserved. The transverse and spin ous processes appear intact. There is no spondylolysis. No lytic or blastic lesion is seen. There is mild multilevel degenerative disc space narrowing, greatest at L5-S1. Posterior disc bulges are seen at several levels. There is at least mild central canal stenosis at L4-L5. Lateral disc bulge is seen bilaterally at L4-L5 and L5-S1. There is likely severe left-sided neural foraminal stenosis at L4-L5 . A large right lateral disc bulge at L5-S1 may impinge the exiting right L5 nerve root. The visualiz ed sacrum and bony pelvis appear intact. There is fatty atrophy of the paraspinous musculature. There is advanced atherosclerotic calcification of the abdominal aorta, which is normal in caliber. Nonobs tructing right renal calculi measure up to 11 mm. A left ureteral stent is partially visualized. Ther e are chronic/healed right posterior rib fractures. IMPRESSION: 1. Again seen is an acute to subacute burst-type compression fracture of L1. This is similar to the examination. 2. There are minimally retropulsed fragments, which do not contribute to significant central canal st enosis. There is no clear evidence of posterior element involvement. 3. No additional acute fracture is seen. 4. Osteopenia and spondylitic change as above. 5. Right-sided nephrolithiasis. 6. Additional findings as above. ACT 112: Negative or not required by law. Dictated: 02/02/2024 9:29 AM Transcribed: 02/02/2024 10:06 AM Dave [id number] [facility] Electronically signed by: Leland Tate M.D. 02/02/2024 10:15 AM
[2024-02-02] MEDS: hydrOXYzine HCl 25 MG TAB PO PRN (12:07)
--- NOTE | 2024-02-02 13:30 | Orthopedic Consultation ---
Date of Consultation February 02, 2024 Assessment & Plan (1) Closed compression fracture of lumbar vertebra: L1 compression fracture. Plan at this time I would recommend bed to chair transfers as tolerated. She is not breakable secondary to her body habitus. She is not a surgical candidate secondary to body habitus. Would have her initiate ambulation with a walker as tolerated. She would be a candidate for rehab or nursing facility. History of Present Illness Reason for Consultation: L1 compression fracture Attending Physician: Stef Lugo MD History of Present Illness This is a 63-year-old female that presents with multiple medical issues. She states she has had a few falls in the past few weeks. 1 was at home when he was at her skilled nursing. She denies any pain numbness or tingling to lower extremities. She has been bedbound for several weeks and has global deconditioning as well as morbid obesity contributing to her lack of functioning. Allergies Allergy/AdvReac Type Severity Reaction Status Date / Time lisinopril Allergy Intermediate Cough Verified 12/05/23 12:35 mineral oil Allergy rash to Verified 12/13/23 15:13 "Baby Oil" (mineral oil/fragrance/vit E) nickel Allergy itching Verified 12/24/22 08:43 simvastatin AdvReac Unknown Muscle Pain Verified 12/05/23 12:35 Home Medications Medication Instructions Recorded Confirmed Type ascorbic acid (vitamin C) 500 mg 500 mg PO QAM 30 days #30 tabs 01/06/24 01/29/24 Rx tablet (Vitamin C) digoxin 125 mcg (0.125 mg) tablet 0.125 mg PO MoWeFr@1600 30 days 01/06/24 01/29/24 Rx (Digitek) #13 tabs docusate sodium 100 mg capsule 100 mg PO BID 30 days #60 caps 01/06/24 01/29/24 Rx metoprolol succinate 50 mg 100 mg (2 x 50 mg) PO BID 30 days 01/06/24 01/29/24 Rx tablet,extended release 24 hr #120 tabs oxycodone-acetaminophen 10 mg-325 1 tab PO Q4H PRN severe pain #12 01/06/24 01/29/24 Rx mg tablet tabs potassium chloride 20 mEq 20 meq PO DAILY 30 days #30 tabs 01/06/24 01/29/24 Rx tablet,extended release alendronate 70 mg tablet 70 mg PO WK 30 days #30 tabs 01/07/24 01/29/24 Rx apixaban 5 mg tablet (Eliquis) 5 mg PO BID 30 days #60 tabs 01/07/24 01/29/24 Rx atorvastatin 40 mg tablet 40 mg PO DAILY 30 days #30 tabs 01/07/24 01/29/24 Rx benzonatate 100 mg capsule 100 mg PO TID PRN cough #20 caps 01/07/24 01/29/24 Rx diclofenac sodium 1 % topical gel 4 g EXT Q6H PRN knee pain 30 days 01/07/24 01/29/24 Rx (Voltaren Arthritis Pain) #100 grams gabapentin 300 mg capsule 300 mg PO HS 30 days #30 caps 01/07/24 01/29/24 Rx hydroxyzine HCl 25 mg tablet 25 - 50 mg (1 - 2 x 25 mg) PO Q6H 01/07/24 01/29/24 Rx PRN itching #20 tabs levothyroxine 100 mcg tablet 100 mcg PO QAM 30 days #0 tabs 01/07/24 01/29/24 Rx (Euthyrox) miconazole nitrate 2 % topical 1 applic EXT BID PRN fungal 01/07/24 01/29/24 Rx powder (Desenex) infection 30 days #85 grams cephalexin 500 mg capsule 500 mg PO TID 01/29/24 01/29/24 History torsemide 20 mg tablet 20 mg PO QAM 01/29/24 01/29/24 History Patient History Medical History Urolithiasis Morbid obesity with BMI of 60.0-69.9, adult Frequent urination at night Pre-diabetes Neuropathy Atrial fibrillation on Eliquis Cardiac murmur Follows with Dr. Olga Lidia BARRAZA (hyperlipidemia) Osteoporosis Hypothyroidism Tachycardia-bradycardia syndrome Hypertension Surgical History History of wisdom tooth extraction History of hip surgery BL Family History Other No family history of adverse response to anesthesia Social History Smoking Status: Former smoker Second Hand Exposure: No; Do You Dip or Chew Tobacco: No; Hx Alcohol Use: Yes Alcohol type: other Hx Substance Use: No Preferred Language: [place] Islander Communication Ability: Effective Finance Teacher Required: No Beliefs That Will Affect Care: None Current Living Situation: Significant Other Current Living Situation Comment: Home with Fiyandele How many Children do You have: 0 Other Information That Helps Us Care for You: No Feels Safe at Home: Yes Safety Concerns: Feels Safe At This Time Assistive Devices: Cane, Denture - Upper, Denture - Lower and Walker Physical Exam Physical Exam: On exam she is alert and oriented. Her fianc is at the bedside. She has sensation to lower extremities and reasonable strength testing. Results & Data Vital Signs (Past 12 Hours) Vital Signs Temp Pulse Pulse Resp BP Pulse Ox O2 Del Method 02/02/24 11:56 36.8 C 64 18 140/62 94 Room Air 02/02/24 08:40 Room Air 02/02/24 07:48 36.9 C 69 18 106/62 94 Room Air 02/02/24 07:00 67 02/02/24 03:34 36.9 C 71 18 146/78 H 93 Room Air
--- NOTE | 2024-02-02 14:50 | Hospitalist Progress Note ---
Date of Service February 02, 2024 Assessment & Plan (1) Cellulitis: Plan: 63-year-old female with past medical significant for paroxysmal atrial fibrillation anticoagulated on Eliquis, tachybradycardia syndrome, HTN, HLD, hypothyroidism, obesity, kidney stones, neuropathy ,history of depression ,morbid obesity who was recently in the hospital for acute on chronic heart failure with preserved ejection fraction was aggressively diuresed, also had episode of rapid A-fib and FLETCHER and treated for UTI and discharged to rehab and patient was discharged home today comes back with weakness and ambulatory dysfunction. Patient says after going home today she could not able to walk and she was brought to the hospital. Feeling weak in the legs. Has some headache. Earlier had some nausea that resolved. Has some abdominal spasms. Danielle is draining dark urine. Normal bowel movements. Denies chest pain or shortness of breath. Currently no headache. Vision is blurry. No earache or runny nose currently. No sore throat. Appetite is down as per patient. Patient also had obstructive uropathy and s/p stent placement in October 2023. Supposed to follow with urology. She also had first diagnosed with COVID on May 04, 2023. Currently COVID still positive. Cellulitis Lower extremities and panniculitis and also left lateral thigh and hip Blood cultures: Negative to date Nasal MRSA:Negative Leukocytosis trending down Continue IV Zosyn Fungal infection In skin folds and groin region on miconazole cream L1 compression fracture--POA Bed to chair transfers as tolerated Not a candidate for surgery per Ortho Initiate ambulation with walker as tolerated Appreciate orthopedics input Patient currently not interested in rehab placement Hematuria in setting of Anticoagulation (Eliquis) use H/O obstructive uropathy S/P left ureteral stent placement H/O nephrolithiasis Suspected UTI Urine culture grew Katheryn Monitor CBC closely Urology consulted Will start on Diflucan May need to hold Eliquis if patient would have significant hemoglobin drop or develop significant hematuria Chronic heart failure with preserved ejection fraction Continue home diuretics Monitor for volume overload A-fib H/O Tachybradycardia syndrome refused pacemaker in the past Continue metoprolol and digoxin On Eliquis for anticoagulation FLETCHER on CKD stage III/IV--POA Presented creatinine of 2.3 Cr levels improved Monitor renal function Avoid nephrotoxic agents as able Hypertension Continue metoprolol and torsemide Monitor BP Hyperlipidemia Resume statin as able Morbid obesity Bariatric bed Needs counseling BMI 65 COVID-19 Initially diagnosed in December 04 Possible old infection versus new Currently asymptomatic Hypothyroidism Continue levothyroxine Anemia of Chronic disease Monitor CBC DVT Px: On Eliquis CODE STATUS Full code Admission and Anticipated Discharge Date Admission Date: January 30, 2024 Subjective Patient is seen and examined at bedside States feeling tired today Also reports heartburn Noted mild hematuria Denies any chest pain, dyspnea, abdominal pain Discussed with patient's at bedside Patient requesting urology consult Review of Systems Review of Systems: All systems reviewed & are unremarkable except as noted in Subjective Physical Exam Physical Exam: Physical Exam: Vitals signs as noted above General Appearance:Morbidly Obese, no apparent distress Head: normocephalic, Atraumatic Eyes: normal inspection, EOMI Neck: supple, Trachea midline Respiratory/Chest: Decreased breath sounds, CTA, No accessory muscle use Cardiovascular: S1, S2, No murmur Abdomen/GI:Soft, Non tender, Bowel sounds present Extremities/Musculoskeletal:normal inspection, 1-2+ B/L LE edema Neurologic/Psych:AAOX3, grossly no focal neurological deficits Skin: normal color, warm Results & Data Results & Data Vital Signs (Past 12 Hours) Vital Signs Temp Pulse Pulse Resp BP Pulse Ox O2 Del Method 02/02/24 11:56 36.8 C 64 18 140/62 94 Room Air 02/02/24 08:40 Room Air 02/02/24 07:48 36.9 C 69 18 106/62 94 Room Air 02/02/24 07:00 67 02/02/24 03:34 36.9 C 71 18 146/78 H 93 Room Air Laboratory Results Short CBC 02/02/24 Range/Units 09:20 Hgb 7.7 L (12.0-16.0) g/dl Hct 25.6 L (37.0-47.0) % BMP 02/02/24 09:20 Sodium 140 Potassium 3.6 Chloride 102 Carbon Dioxide 30 BUN 32 H Creatinine 1.59 H Glucose 104 H Calcium 7.1 L
--- NOTE | 2024-02-02 15:19 | Urology Consultation ---
Date of Consultation February 02, 2024 Assessment & Plan (1) Gross hematuria: (2) Ureteral stent present: (3) Nephrolithiasis: Plan 63yo/F with multiple medical issues and a hx of left ureteral calculus s/p left ureteral stent placement 11/08/2023 admitted to medicine service with LE cellulitis and compression fracture. Urology consulted for gross hematuria. - Afebrile, vitals stable. - Labs reviewedhemoglobin 7.7, creatinine 1.59. Continue to trend. - Urine culture 01/30/2024 with Katheryn albicans/dubliniensis. - Blood cultures prelim no growth x 48hours. - On Zosyn and Fluconazole. - CT A/P reviewed -left ureteral stent in place, mild left-sided hydronephrosis worsened from prior with 2 stones within the dilated renal pelvis with a larger stone measuring 13 mm, no right-sided hydronephrosis, nonobstructing right renal stones - No plan for urological intervention at this time. - Hematuria in the setting of anticoagulation, stent, and UTI. - Danielle intact and draining light red urine. Continue to monitor. OK to hand irrigate as needed for clots, retention, suprapubic pain. - Anticoagulation per primary team. Urology can manage hematuria as needed. - Continue supportive care, antibiotics, and antifungals. - She will need outpatient follow-up with our service to arrange definitive stone treatment after acute issues have resolved. - Urology will follow. Plan of care reviewed with Dr. Nassar. History of Present Illness Attending Physician: Stef Lugo MD History of Present Illness 63-year-old female with multiple medical issues who was recently hospitalized in November for acute on chronic heart failure, Covid, A-fib, FLETCHER, and UTI. She was discharged to rehab and then to home recently. She returned to the ED 01/29/24 d ue to weakness and ambulatory dysfunction. She is admitted to the medicine service with lower extremity cellulitis, fungal skin infection, L1 compression fracture, hematuria, FLETCHER on CKD. Urology was consulted for hematuria. Of note patient was admitted to [facility] 11/08/2023-11/13/2023 for left ureteral calculus s/p left ureteral stent placement 11/08/2023. She was scheduled for stone treatment on 12/15/2023 however this was cancelled as she was hospitalized and was COVID-positive. CT abdomen pelvis 1. Acute/subacute 70% L1 compression fracture, new from prior. 2. Left ureteral stent in place. Mild left-sided hydroureteronephrosis, worsened from prior. There are 2 stones within the dilated renal pelvis, the larger stone measuring 13 mm. 3. Nonobstructing right kidney stones. No right-sided hydronephrosis. Patient examined at bedside this afternoon. Awake, resting in bed on arrival. No acute distress. Danielle catheter intact and draining with hematuria. Allergies Allergy/AdvReac Type Severity Reaction Status Date / Time lisinopril Allergy Intermediate Cough Verified 12/05/23 12:35 mineral oil Allergy rash to Verified 12/13/23 15:13 "Baby Oil" (mineral oil/fragrance/vit E) nickel Allergy itching Verified 12/24/22 08:43 simvastatin AdvReac Unknown Muscle Pain Verified 12/05/23 12:35 Home Medications Medication Instructions Recorded Confirmed Type ascorbic acid (vitamin C) 500 mg 500 mg PO QAM 30 days #30 tabs 01/06/24 01/29/24 Rx tablet (Vitamin C) digoxin 125 mcg (0.125 mg) tablet 0.125 mg PO MoWeFr@1600 30 days 01/06/24 01/29/24 Rx (Digitek) #13 tabs docusate sodium 100 mg capsule 100 mg PO BID 30 days #60 caps 01/06/24 01/29/24 Rx metoprolol succinate 50 mg 100 mg (2 x 50 mg) PO BID 30 days 01/06/24 01/29/24 Rx tablet,extended release 24 hr #120 tabs oxycodone-acetaminophen 10 mg-325 1 tab PO Q4H PRN severe pain #12 01/06/24 01/29/24 Rx mg tablet tabs potassium chloride 20 mEq 20 meq PO DAILY 30 days #30 tabs 01/06/24 01/29/24 Rx tablet,extended release alendronate 70 mg tablet 70 mg PO WK 30 days #30 tabs 01/07/24 01/29/24 Rx apixaban 5 mg tablet (Eliquis) 5 mg PO BID 30 days #60 tabs 01/07/24 01/29/24 Rx atorvastatin 40 mg tablet 40 mg PO DAILY 30 days #30 tabs 01/07/24 01/29/24 Rx benzonatate 100 mg capsule 100 mg PO TID PRN cough #20 caps 01/07/24 01/29/24 Rx diclofenac sodium 1 % topical gel 4 g EXT Q6H PRN knee pain 30 days 01/07/24 01/29/24 Rx (Voltaren Arthritis Pain) #100 grams gabapentin 300 mg capsule 300 mg PO HS 30 days #30 caps 01/07/24 01/29/24 Rx hydroxyzine HCl 25 mg tablet 25 - 50 mg (1 - 2 x 25 mg) PO Q6H 01/07/24 01/29/24 Rx PRN itching #20 tabs levothyroxine 100 mcg tablet 100 mcg PO QAM 30 days #0 tabs 01/07/24 01/29/24 Rx (Euthyrox) miconazole nitrate 2 % topical 1 applic EXT BID PRN fungal 01/07/24 01/29/24 Rx powder (Desenex) infection 30 days #85 grams cephalexin 500 mg capsule 500 mg PO TID 01/29/24 01/29/24 History torsemide 20 mg tablet 20 mg PO QAM 01/29/24 01/29/24 History Patient History Medical History Urolithiasis Morbid obesity with BMI of 60.0-69.9, adult Frequent urination at night Pre-diabetes Neuropathy Atrial fibrillation on Eliquis Cardiac murmur Follows with Dr. Olga Lidia BARRAZA (hyperlipidemia) Osteoporosis Hypothyroidism Tachycardia-bradycardia syndrome Hypertension Surgical History History of wisdom tooth extraction History of hip surgery BL Family History Other No family history of adverse response to anesthesia Social History Smoking Status: Former smoker Second Hand Exposure: No; Do You Dip or Chew Tobacco: No; Hx Alcohol Use: Yes Alcohol type: other Hx Substance Use: No Preferred Language: Amharic Communication Ability: Effective Dental Sales Representative Required: No Beliefs That Will Affect Care: None Current Living Situation: Significant Other Current Living Situation Comment: Home with Fiancee How many Children do You have: 0 Other Information That Helps Us Care for You: No Feels Safe at Home: Yes Safety Concerns: Feels Safe At This Time Assistive Devices: Cane, Denture - Upper, Denture - Lower and Walker Review of Systems Review of Systems: All systems reviewed & are unremarkable except as noted in HPI & below Physical Exam Constitutional: + obese; no acute distress Neck: normal visual inspection Respiratory: no respiratory distress and no labored breathing Musculoskeletal: Head/Neck/Chest: normocephalic Neurologic: awake Psychiatric: Orientation: alert and oriented x 3 Genitourinary: Danielle intact, draining light red urine Results & Data Vital Signs (Past 12 Hours) Vital Signs Temp Pulse Pulse Resp BP Pulse Ox O2 Del Method 02/02/24 11:56 36.8 C 64 18 140/62 94 Room Air 02/02/24 08:40 Room Air 02/02/24 07:48 36.9 C 69 18 106/62 94 Room Air 02/02/24 07:00 67 02/02/24 03:34 36.9 C 71 18 146/78 H 93 Room Air PG Care Time/CCT Total # of Minutes Spent Total Time Spent with Patient: Total time spent is greater than 50% in coordination of care (as documented) at patient's floor/unit and/or counseling patient: Coding Level of Care Code 52002 IN/OBS CONSULT LVL 4,60M Diagnoses Gross hematuria R31.0 Ureteral stent present Z96.0 Nephrolithiasis N20.0
[2024-02-02] MEDS: FAMOTIDINE 20 MG TAB PO SCH (16:02)
[2024-02-02] MEDS: FLUCONAZOLE 100 MG TAB PO SCH (16:02)
[2024-02-03 06:38] LABS: Hematocrit (blood only) 26.5 % (37.0-47.0); Hemoglobin 7.8 g/dl (12.0-16.0); Mean Corpuscular Hemoglobin 26.1 pg (25.0-34.0); Mean Corpuscular Hgb Conc 29.4 g/dL (32.0-36.0); Mean Corpuscular Volume 88.6 fL (80.0-100.0); Mean Platelet Volume 9.3 fL (9.4-12.4); Platelet Count 310 K/uL (130-400); RDW Coefficient of Variation 18.4 % (11.5-14.5); RDW Standard Deviation 59.6 fL (36.4-46.3); Red Blood Count 2.99 M/uL (4.20-5.40); White Blood Count 7.92 K/ul (4.8-10.8)
[2024-02-03 06:55] LABS: Calcium 7.2 mg/dl (8.6-10.3); Creatinine Clr Calc Pharmacy 64.8 ml/min; Est GFR (African American) 46.6 ml/min; Est GFR (Non-African American) 40.2 ml/min; Potassium 3.5 mmol/L (3.5-5.1)
[2024-02-03] MEDS: ACETAMINOPHEN 325 MG TAB PO PRN (08:24)
[2024-02-03] MEDS ORDERED: STAT IV/IM STA (09:03)
[2024-02-03] MEDS: CALCIUM GLUCONATE 10% 1,000 MG in SODIUM CHLOR 0.9% MINI-B 50 ML IV ONE (11:03)
--- NOTE | 2024-02-03 13:41 | Urology Progress Note ---
Date of Service February 03, 2024 Assessment & Plan (1) Gross hematuria: (2) Ureteral stent present: (3) UTI (urinary tract infection): (4) Nephrolithiasis: Plan 63yo/F with multiple medical issues and a hx of left ureteral calculus s/p left ureteral stent placement 11/08/2023 admitted to medicine service with LE cellulitis and compression fracture. Urology consulted for gross hematuria. - Afebrile, vitals stable. - Labs reviewed wbc 7.92, hemoglobin 7.8, creatinine 1.59- 1.40 today. Continue to trend. - Urine culture 01/30/2024 with Katheryn albicans/dubliniensis. - Blood cultures prelim no growth x 48hours. - On Ceftriaxone and Fluconazole. - CT A/P reviewed -left ureteral stent in place, mild left-sided hydronephrosis worsened from prior with 2 stones within the dilated renal pelvis with a larger stone measuring 13 mm, no right-sided hydronephrosis, nonobstructing right renal stones - No plan for urological intervention at this time. - Hematuria in the setting of anticoagulation, stent, and UTI. - Danielle intact and draining light red urine. Continue to monitor. OK to hand irrigate as needed for clots, retention, suprapubic pain. - Anticoagulation per primary team. Urology can manage hematuria as needed. - Continue supportive care, antibiotics, and antifungals. - She will need outpatient follow-up with our service to arrange definitive stone treatment after acute issues have resolved. - Urology will follow peripherally. Please call with any further questions or concerns. Admission and Anticipated Discharge Date Admission Date: January 30, 2024 Subjective Patient examined at bedside this AM. Awake, resting in bed on arrival. No acute distress. Danielle intact draining with light red urine. Review of Systems Constitutional: as per Subjective / HPI Genitourinary: as per Subjective / HPI Physical Exam Constitutional: + obese; no acute distress Respiratory: no respiratory distress and no labored breathing Neurologic: awake Psychiatric: Orientation: alert and oriented x 3 Genitourinary: Danielle intact, draining light red urine Results & Data Vital Signs (Past 12 Hours) Vital Signs Temp Pulse Pulse Resp BP Pulse Ox O2 Del Method 02/03/24 11:37 36.6 C 77 16 146/68 H 94 Room Air 02/03/24 08:20 Room Air 02/03/24 08:13 37.3 C 67 16 128/60 94 Room Air 02/03/24 07:00 64 02/03/24 04:00 37.0 C 74 20 136/75 93 Room Air PG Care Time/CCT Total # of Minutes Spent Total Time Spent with Patient: Total time spent is greater than 50% in coordination of care (as documented) at patient's floor/unit and/or counseling patient: Coding Level of Care Code 36913 SUB INP/OBS CARE 2/35MIN Diagnoses Gross hematuria R31.0 Ureteral stent present Z96.0 UTI (urinary tract infection) N39.0 Nephrolithiasis N20.0
--- NOTE | 2024-02-03 15:34 | Hospitalist Progress Note ---
Date of Service February 03, 2024 Assessment & Plan (1) Cellulitis: Plan: 63-year-old female with past medical significant for paroxysmal atrial fibrillation anticoagulated on Eliquis, tachybradycardia syndrome, HTN, HLD, hypothyroidism, obesity, kidney stones, neuropathy ,history of depression ,morbid obesity who was recently in the hospital for acute on chronic heart failure with preserved ejection fraction was aggressively diuresed, also had episode of rapid A-fib and FLETCHER and treated for UTI and discharged to rehab and patient was discharged home today comes back with weakness and ambulatory dysfunction. Patient says after going home today she could not able to walk and she was brought to the hospital. Feeling weak in the legs. Has some headache. Earlier had some nausea that resolved. Has some abdominal spasms. Danielle is draining dark urine. Normal bowel movements. Denies chest pain or shortness of breath. Currently no headache. Vision is blurry. No earache or runny nose currently. No sore throat. Appetite is down as per patient. Patient also had obstructive uropathy and s/p stent placement in October 2023. Supposed to follow with urology. She also had first diagnosed with COVID on May 04, 2023. Currently COVID still positive. Cellulitis Lower extremities and panniculitis and also left lateral thigh and hip Blood cultures: Negative to date Nasal MRSA:Negative Leukocytosis resolved Continue IV Zosyn>> transition to Rocephin Fungal infection In skin folds and groin region on miconazole cream L1 compression fracture--POA Bed to chair transfers as tolerated Not a candidate for surgery per Ortho Initiate ambulation with walker as tolerated Appreciate orthopedics input Patient currently not interested in rehab placement Hematuria in setting of Anticoagulation (Eliquis) use H/O obstructive uropathy S/P left ureteral stent placement H/O nephrolithiasis UTI--POA Urine culture grew Katheryn Monitor CBC closely Appreciate Urology Input No plan for intervention by urology currently Continue Diflucan May need to hold Eliquis if patient would have significant hemoglobin drop or develop significant hematuria Hb stable, patient agrees to continue Eliquis given high risk for clotting Needs follow-up with urology on discharge Chronic heart failure with preserved ejection fraction Continue home diuretics Monitor for volume overload A-fib H/O Tachybradycardia syndrome refused pacemaker in the past Continue metoprolol and digoxin On Eliquis for anticoagulation FLETCHER on CKD stage III/IV--POA Presented creatinine of 2.3 Cr levels improved Monitor renal function Avoid nephrotoxic agents as able Hypertension Continue metoprolol and torsemide Monitor BP Hyperlipidemia Resume statin as able Morbid obesity Bariatric bed Needs counseling BMI 65 COVID-19 Initially diagnosed in December 04 Possible old infection versus new Currently asymptomatic Hypothyroidism Continue levothyroxine Anemia of Chronic disease Monitor CBC DVT Px: On Eliquis CODE STATUS Full code Disposition Will benefit from Rehab placement Case management to help with discharge planning Admission and Anticipated Discharge Date Admission Date: January 30, 2024 Subjective Patient is seen and examined at bedside Back pain is better today Still has minimal hematuria Denies any chest pain, dyspnea, abdominal pain Hb stable Review of Systems Review of Systems: All systems reviewed & are unremarkable except as noted in Subjective Physical Exam Physical Exam: Physical Exam: Vitals signs as noted above General Appearance:Morbidly Obese, no apparent distress Head: normocephalic, Atraumatic Eyes: normal inspection, EOMI Neck: supple, Trachea midline Respiratory/Chest: Decreased breath sounds, CTA, No accessory muscle use Cardiovascular: S1, S2, No murmur Abdomen/GI:Soft, Non tender, Bowel sounds present Extremities/Musculoskeletal:normal inspection, 1-2+ B/L LE edema Neurologic/Psych:AAOX3, grossly no focal neurological deficits Skin: normal color, warm Results & Data Results & Data Vital Signs (Past 12 Hours) Vital Signs Temp Pulse Pulse Resp BP Pulse Ox O2 Del Method 02/03/24 11:37 36.6 C 77 16 146/68 H 94 Room Air 02/03/24 08:20 Room Air 02/03/24 08:13 37.3 C 67 16 128/60 94 Room Air 02/03/24 07:00 64 02/03/24 04:00 37.0 C 74 20 136/75 93 Room Air Laboratory Results Short CBC 02/03/24 Range/Units 06:01 WBC 7.92 (4.8-10.8) K/ul Hgb 7.8 L (12.0-16.0) g/dl Hct 26.5 L (37.0-47.0) % Plt Count 310 (130-400) K/uL BMP 02/03/24 06:01 Sodium 141 Potassium 3.5 Chloride 102 Carbon Dioxide 31 BUN 28 H Creatinine 1.40 H Glucose 86 Calcium 7.2 L
[2024-02-04 06:38] LABS: Hematocrit (blood only) 25.8 % (37.0-47.0); Hemoglobin 7.8 g/dl (12.0-16.0); Mean Corpuscular Hemoglobin 26.6 pg (25.0-34.0); Mean Corpuscular Hgb Conc 30.2 g/dL (32.0-36.0); Mean Corpuscular Volume 88.1 fL (80.0-100.0); Mean Platelet Volume 9.2 fL (9.4-12.4); Platelet Count 325 K/uL (130-400); RDW Coefficient of Variation 18.3 % (11.5-14.5); RDW Standard Deviation 58.8 fL (36.4-46.3); Red Blood Count 2.93 M/uL (4.20-5.40); White Blood Count 8.42 K/ul (4.8-10.8)
[2024-02-04 07:19] LABS: BUN Creatinine Ratio 19.2 (10-20); Calcium 7.5 mg/dl (8.6-10.3); Creatinine Clr Calc Pharmacy 75.9 ml/min; Est GFR (African American) 56.1 ml/min; Est GFR (Non-African American) 48.4 ml/min; Magnesium 1.5 mg/dl (1.7-2.4); Potassium 3.5 mmol/L (3.5-5.1)
[2024-02-04] MEDS: cefTRIAXone SODIUM 2,000 MG in DEXTROSE 5 % MINI-B 50 ML IV SCH (08:36)
[2024-02-04] MEDS: MAGNESIUM CHLORIDE W/CALCIUM 64MG DELAYED REL TAB PO SCH (19:55)
--- NOTE | 2024-02-04 21:08 | Hospitalist Progress Note ---
Date of Service February 04, 2024 Assessment & Plan (1) Cellulitis: Plan: 63-year-old female with past medical significant for paroxysmal atrial fibrillation anticoagulated on Eliquis, tachybradycardia syndrome, HTN, HLD, hypothyroidism, obesity, kidney stones, neuropathy ,history of depression ,morbid obesity who was recently in the hospital for acute on chronic heart failure with preserved ejection fraction was aggressively diuresed, also had episode of rapid A-fib and FLETCHER and treated for UTI and discharged to rehab and patient was discharged home today comes back with weakness and ambulatory dysfunction. Patient says after going home today she could not able to walk and she was brought to the hospital. Feeling weak in the legs. Has some headache. Earlier had some nausea that resolved. Has some abdominal spasms. Danielle is draining dark urine. Normal bowel movements. Denies chest pain or shortness of breath. Currently no headache. Vision is blurry. No earache or runny nose currently. No sore throat. Appetite is down as per patient. Patient also had obstructive uropathy and s/p stent placement in October 2023. Supposed to follow with urology. She also had first diagnosed with COVID on May 04, 2023. Currently COVID still positive. Cellulitis Lower extremities and panniculitis and also left lateral thigh and hip Blood cultures: Negative to date Nasal MRSA:Negative Leukocytosis resolved Continue IV Zosyn>> transition to Rocephin Clinically improved Encouraged to increase physical activity Continue PT OT Fungal infection In skin folds and groin region on miconazole cream L1 compression fracture--POA Bed to chair transfers as tolerated Not a candidate for surgery per Ortho Initiate ambulation with walker as tolerated Appreciate orthopedics input Patient currently not interested in rehab placement Hematuria in setting of Anticoagulation (Eliquis) use H/O obstructive uropathy S/P left ureteral stent placement H/O nephrolithiasis UTI--POA Urine culture grew Katheryn Monitor CBC closely Appreciate Urology Input No plan for intervention by urology currently Continue Diflucan May need to hold Eliquis if patient would have significant hemoglobin drop or develop significant hematuria Hb stable, patient agrees to continue Eliquis given high risk for clotting Needs follow-up with urology on discharge Hematuria resolved Will need follow-up with urology on discharge Chronic heart failure with preserved ejection fraction Continue home diuretics Monitor for volume overload A-fib H/O Tachybradycardia syndrome refused pacemaker in the past Continue metoprolol and digoxin On Eliquis for anticoagulation FLETCHER on CKD stage III/IV--POA Presented creatinine of 2.3 Cr levels improved Monitor renal function Avoid nephrotoxic agents as able Hypertension Continue metoprolol and torsemide Monitor BP Hyperlipidemia Resume statin as able Morbid obesity Bariatric bed Needs counseling BMI 65 COVID-19 Initially diagnosed in December 04 Possible old infection versus new Currently asymptomatic Hypothyroidism Continue levothyroxine Anemia of Chronic disease Monitor CBC DVT Px: On Eliquis CODE STATUS Full code Disposition Will benefit from Rehab placement Case management to help with discharge planning Admission and Anticipated Discharge Date Admission Date: January 30, 2024 Subjective Patient is seen and examined at bedside Hematuria resolved Patient still has back pain Also reports dizziness with positional change intermittently Discussed with patient's family at bedside Denies any chest pain, dyspnea, abdominal pain Review of Systems Review of Systems: All systems reviewed & are unremarkable except as noted in Subjective Physical Exam Physical Exam: Physical Exam: Vitals signs as noted above General Appearance:Morbidly Obese, no apparent distress Head: normocephalic, Atraumatic Eyes: normal inspection, EOMI Neck: supple, Trachea midline Respiratory/Chest: Decreased breath sounds, CTA, No accessory muscle use Cardiovascular: S1, S2, No murmur Abdomen/GI:Soft, Non tender, Bowel sounds present Extremities/Musculoskeletal:normal inspection, 1-2+ B/L LE edema Neurologic/Psych:AAOX3, grossly no focal neurological deficits Skin: normal color, warm Results & Data Results & Data Vital Signs (Past 12 Hours) Vital Signs Pulse Pulse Resp BP Pulse Ox O2 Del Method 02/04/24 19:11 66 18 135/74 95 Room Air 02/04/24 18:04 71 02/04/24 17:20 66 02/04/24 10:17 62 Laboratory Results Short CBC 02/04/24 Range/Units 06:09 WBC 8.42 (4.8-10.8) K/ul Hgb 7.8 L (12.0-16.0) g/dl Hct 25.8 L (37.0-47.0) % Plt Count 325 (130-400) K/uL BMP 02/04/24 06:09 Sodium 141 Potassium 3.5 Chloride 101 Carbon Dioxide 34 H BUN 23 Creatinine 1.20 Glucose 92 Calcium 7.5 L
[2024-02-05 06:55] LABS: Hematocrit (blood only) 27.2 % (37.0-47.0)
[2024-02-05 07:13] LABS: BUN Creatinine Ratio 18.5 (10-20); Calcium 7.5 mg/dl (8.6-10.3); Creatinine Clr Calc Pharmacy 76.5 ml/min; Est GFR (African American) 56.7 ml/min; Est GFR (Non-African American) 48.9 ml/min; Magnesium 1.5 mg/dl (1.7-2.4); Potassium 3.2 mmol/L (3.5-5.1)
[2024-02-05] MEDS: POTASSIUM CHLORIDE CRTAB 20 MEQ TABCR PO ONE (09:28)
[2024-02-05] MEDS: MAGNESIUM SULFATE / D5W 1 GM/100 ML BAG IV ONE (09:28)
[2024-02-05] MEDS: MoRPHine SULFATE 2 MG/ML CARP IV PRN (11:13)
--- NOTE | 2024-02-05 12:36 | Urology Progress Note ---
Date of Service February 05, 2024 Assessment & Plan (1) Nephrolithiasis: (2) Gross hematuria: (3) Ureteral stent present: Plan 63yo/F with multiple medical issues and a hx of left ureteral calculus s/p left ureteral stent placement 11/08/2023 admitted to medicine service with ZANDER c ellulitis and compression fracture. Had a long conversation with patient and . Explained that this pain is from stent discomfort. CT scan shows stent is in appropriate position. Discussed that it is not safe for her to have an elective procedure given her other health issues currently. She needs to become stable and we can see her as an outpatient to set up stone treatment. Discussed that she has very high risk given her obesity and recommended that she attempt to lose weight to help all of her health issues. Stent discomfort and hematuria is expected in the setting of a stent. Do not recommend any further CT scans Maximal medical therapy for his stent should be narcotic, Tylenol, ibuprofen, Flomax daily, ditropan 5 mg every 8 as needed There will not be urologic intervention while she is an inpatient as this is an elective procedure and is more appropriate as an outpatient -Urology to sign off She has outpatient follow-up scheduled with urology Admission and Anticipated Discharge Date Admission Date: January 30, 2024 Subjective Patient had left groin pain. Medicine ordered another CT scan. Medicine asked that urology evaluate patient. Review of Systems Review of Systems: 14 point review of systems negative outs siria of what is listed above in HPI Physical Exam Physical Exam: General: Alert and oriented, no acute distress HEENT: Normocephalic, mucous membranes moist Pulmonary: Nonlabored respirations Abdomen: Nondistended, obese : Danielle catheter draining maroon urine. Extremities: Moves all 4 spontaneously Neuro: No gross deficits Skin: Warm, dry, no rashes noted Results & Data Vital Signs (Past 12 Hours) Vital Signs Temp Pulse Pulse Resp BP BP Pulse Ox 02/05/24 12:28 63 18 138/73 96 02/05/24 10:52 72 02/05/24 07:46 02/05/24 03:38 36.6 C 62 18 145/55 H 97 02/05/24 03:00 Pulse Ox O2 Del Method O2 Del Method 02/05/24 12:28 Room Air 02/05/24 10:52 02/05/24 07:46 Room Air 02/05/24 03:38 Room Air 02/05/24 03:00 97 Room Air PG Care Time/CCT Total # of Minutes Spent Total Time Spent with Patient: Total time spent is greater than 50% in coordination of care (as documented) at patient's floor/unit and/or counseling patient: Coding Level of Care Code 27502 SUB INP/OBS CARE 2/35MIN Diagnoses Nephrolithiasis N20.0 Gross hematuria R31.0 Ureteral stent present Z96.0
--- NOTE | 2024-02-05 12:50 | CT Scan Report ---
CT abd pelvis wo con CLINICAL HISTORY: Left LQ abdominal pain TECHNIQUE: Helical axial images of the abdomen and pelvis were obtained. Automated dose lowering tech niques and/or adjustment according to patient size were utilized for this exam. This exam was perfor med without intravenous contrast. CT DOSE: 1647.99 mGy.cm COMPARISON: Comparison is made to CT abdomen pelvis 01/29/2024 FINDINGS: Lower chest: Atherosclerotic disease is seen in the coronary arteries. Liver: Unremarkable. No focal lesions are seen. Gallbladder and biliary tree: No calcified gallstones. Normal caliber wall. No intra- or extrahepatic biliary ductal dilation. Pancreas: Unremarkable, no focal lesions. Spleen: Unremarkable. Adrenals: Unremarkable. Kidneys and ureters: Left double-J stent is seen with mild hydronephrosis. Stones are seen in the rig ht kidney and left renal pelvis. Bladder: Danielle catheter is seen. Reproductive organs: Unremarkable. Bowel: Diverticulosis is seen without diverticulitis. The appendix is normal. Lymph nodes Retroperitoneal: Unremarkable. Pelvic: Unremarkable. Mesenteric: Unremarkable. Peritoneum: There is thickening of the left iliopsoas muscle. Mild fat stranding is seen. Vessels: Atherosclerotic calcifications are seen. Abdominal wall: Unremarkable. Bones: Degenerative changes in the visualized spine. Bilateral femoral neck screws are seen. [place] tration of compression fracture of L1. IMPRESSION: 1. There is thickening of the left psoas muscle. Findings may represent infectious process given pat ient's history of cellulitis, however evaluation for drainable abscess is limited by noncontrast tech nique. 2. Bilateral renal stones. 3. Redemonstration of L1 compression fracture. 4. Additional findings as above. ACT 112: Negative or not required by law. Electronically signed by: Anshul Castle M.D. 02/05/2024 12:48 PM
[2024-02-05] MEDS ORDERED: oxyBUTYnin chloride 5 MG TAB PO PRN (15:47)
--- NOTE | 2024-02-05 15:52 | Hospitalist Progress Note ---
Date of Service February 05, 2024 Assessment & Plan (1) Cellulitis: Plan: 63-year-old female with past medical significant for paroxysmal atrial fibrillation anticoagulated on Eliquis, tachybradycardia syndrome, HTN, HLD, hypothyroidism, obesity, kidney stones, neuropathy ,history of depression ,morbid obesity who was recently in the hospital for acute on chronic heart failure with preserved ejection fraction was aggressively diuresed, also had episode of rapid A-fib and FLETCHER and treated for UTI and discharged to rehab and patient was discharged home today comes back with weakness and ambulatory dysfunction. Patient says after going home today she could not able to walk and she was brought to the hospital. Feeling weak in the legs. Has some headache. Earlier had some nausea that resolved. Has some abdominal spasms. Danielle is draining dark urine. Normal bowel movements. Denies chest pain or shortness of breath. Currently no headache. Vision is blurry. No earache or runny nose currently. No sore throat. Appetite is down as per patient. Patient also had obstructive uropathy and s/p stent placement in October 2023. Supposed to follow with urology. She also had first diagnosed with COVID on May 04, 2023. Currently COVID still positive. Cellulitis Lower extremities and panniculitis and also left lateral thigh and hip Blood cultures: Negative to date Nasal MRSA:Negative Leukocytosis resolved Continue IV Zosyn>> transition to Rocephin Clinically improved Encouraged to increase physical activity Continue PT OT Hypokalemia Hypomagnesemia Replete electrolytes as needed Monitor Fungal infection In skin folds and groin region on miconazole cream L1 compression fracture--POA Bed to chair transfers as tolerated Not a candidate for surgery per Ortho Initiate ambulation with walker as tolerated Appreciate orthopedics input Patient currently not interested in rehab placement Hematuria in setting of Anticoagulation (Eliquis) use H/O obstructive uropathy S/P left ureteral stent placement H/O nephrolithiasis UTI--POA Urine culture grew Katheryn Ureteral stent pain Monitor CBC closely Appreciate Urology Input No plan for intervention by urology currently Continue Diflucan May need to hold Eliquis if patient would have significant hemoglobin drop or develop significant hematuria Hb stable, patient agrees to continue Eliquis given high risk for clotting Needs follow-up with urology on discharge Added Flomax, Ditropan as needed CT abdomen today showed stent in appropriate position Currently no intervention needed per urology Chronic heart failure with preserved ejection fraction Continue home diuretics Monitor for volume overload A-fib H/O Tachybradycardia syndrome refused pacemaker in the past Continue metoprolol and digoxin On Eliquis for anticoagulation FLETCHER on CKD stage III/IV--POA Presented creatinine of 2.3 Cr levels back to baseline Monitor renal function Avoid nephrotoxic agents as able Hypertension Continue metoprolol and torsemide Monitor BP Hyperlipidemia Resume statin as able Morbid obesity Bariatric bed Needs counseling BMI 65 COVID-19 Initially diagnosed in December 04 Possible old infection versus new Currently asymptomatic Hypothyroidism Continue levothyroxine Anemia of Chronic disease Monitor CBC DVT Px: On Eliquis CODE STATUS Full code Disposition Will benefit from Rehab placement Case management to help with discharge planning Admission and Anticipated Discharge Date Admission Date: January 30, 2024 Subjective Patient is seen and examined at bedside States having significant left groin pain Also reports intermittent hematuria Requested urology to reevaluate today Discussed with patient's at bedside Also had an episode of nausea and vomiting this morning Denies any chest pain, dyspnea Back pain is controlled No other complaints Review of Systems Review of Systems: All systems reviewed & are unremarkable except as noted in Subjective Physical Exam Physical Exam: Physical Exam: Vitals signs as noted above General Appearance:Morbidly Obese, no apparent distress Head: normocephalic, Atraumatic Eyes: normal inspection, EOMI Neck: supple, Trachea midline Respiratory/Chest: Decreased breath sounds, CTA, No accessory muscle use Cardiovascular: S1, S2, No murmur Abdomen/GI:Soft, Non tender, Bowel sounds present Extremities/Musculoskeletal:normal inspection, 1-2+ B/L LE edema Neurologic/Psych:AAOX3, grossly no focal neurological deficits Skin: normal color, warm Results & Data Results & Data Vital Signs (Past 12 Hours) Vital Signs Pulse Pulse Resp BP Pulse Ox O2 Del Method 02/05/24 12:28 63 18 138/73 96 Room Air 02/05/24 10:52 72 02/05/24 07:46 Room Air Laboratory Results Short CBC 02/05/24 Range/Units 06:04 Hgb 8.0 L (12.0-16.0) g/dl Hct 27.2 L (37.0-47.0) % BMP 02/05/24 06:04 Sodium 138 Potassium 3.2 L Chloride 98 Carbon Dioxide 34 H BUN 22 Creatinine 1.19 Glucose 90 Calcium 7.5 L
[2024-02-05] MEDS: TAMSULOSIN HCL 0.4 MG CAP PO SCH (20:06)
[2024-02-06 06:29] LABS: Hematocrit (blood only) 24.6 % (37.0-47.0); Hemoglobin 7.3 g/dl (12.0-16.0)
[2024-02-06 06:40] LABS: BUN Creatinine Ratio 15.8 (10-20); Calcium 7.6 mg/dl (8.6-10.3); Creatinine Clr Calc Pharmacy 57.7 ml/min; Est GFR (African American) 40.2 ml/min; Est GFR (Non-African American) 34.7 ml/min; Magnesium 1.8 mg/dl (1.7-2.4); Potassium 3.8 mmol/L (3.5-5.1)
[2024-02-06] MEDS ORDERED: SODIUM CHLORIDE 0.9% 250 ML IV PRN (09:57)
--- NOTE | 2024-02-06 11:41 | Surgery Consultation ---
Date of Consultation February 06, 2024 Assessment & Plan (1) Left lower quadrant abdominal pain: Very difficult to speak with Ms. Cox during her examination today. She kept repeating in a very loud manner that she is "in pain" from "her stone." She states that the pain she is having today is the same as it was for the last couple of days. She denies that she is nauseous. She is tolerating a regular, heart healthy diet. She has been moving her bowels, had episode of bowel incontinence early this AM. Most recent CT scan of abdomen and pelvis (02/04) shows thickening of the left psoas muscle. Findings may represent infectious process given patient's history of cellulitis, however evaluation for drainable abscess is limited by noncontrast technique; Bilateral renal stones; and Redemonstration of L1 compression fracture. WBC within normal limits when checked most recently on 02/03. At this time, may consider IR consult regarding psoas abscess and/or repeating CT scan with contrast. There are no indications for surgical intervention by General Surgery at this time. Large percentage of her pain is most likely due to left ureteral stent Patient's history, exam, assessment and plan reviewed with Dr. Fountain. Dr. Lugo made aware of assessment. General Surgery will sign off at this time. History of Present Illness Reason for Consultation: left lower quadrant abdominal pain Attending Physician: Stef Lugo MD History of Present Illness Dipesh is a 63 year-old- female who presented to [facility] ED due to boyfriend being unable to care for her at home. Per ED admission note, Dipesh was discharged to home from [facility] on the day that she presented to ED. She has multiple health issues including hypertension, atrial fibrillation, compression fracture of lumbar vertebra, left ureteral calculus s/p left ureteral stent placement 11/08/2023. Over the past couple of days, patient has been consistently complaining of left groin pain. Patient was evaluated by Urology and CT scan confirmed correct/appropriate stent location. Dr. Lugo placed consult because Dipesh started to complain of left lower quadrant abdominal pain. Dipesh denies nausea or vomiting. She is tolerating a heart healthy diet. Allergies Allergy/AdvReac Type Severity Reaction Status Date / Time lisinopril Allergy Intermediate Cough Verified 12/05/23 12:35 mineral oil Allergy rash to Verified 12/13/23 15:13 "Baby Oil" (mineral oil/fragrance/vit E) nickel Allergy itching Verified 12/24/22 08:43 simvastatin AdvReac Unknown Muscle Pain Verified 12/05/23 12:35 Home Medications Medication Instructions Recorded Confirmed Type ascorbic acid (vitamin C) 500 mg 500 mg PO QAM 30 days #30 tabs 01/06/24 01/29/24 Rx tablet (Vitamin C) digoxin 125 mcg (0.125 mg) tablet 0.125 mg PO MoWeFr@1600 30 days 01/06/24 01/29/24 Rx (Digitek) #13 tabs docusate sodium 100 mg capsule 100 mg PO BID 30 days #60 caps 01/06/24 01/29/24 Rx metoprolol succinate 50 mg 100 mg (2 x 50 mg) PO BID 30 days 01/06/24 01/29/24 Rx tablet,extended release 24 hr #120 tabs oxycodone-acetaminophen 10 mg-325 1 tab PO Q4H PRN severe pain #12 01/06/24 01/29/24 Rx mg tablet tabs potassium chloride 20 mEq 20 meq PO DAILY 30 days #30 tabs 01/06/24 01/29/24 Rx tablet,extended release alendronate 70 mg tablet 70 mg PO WK 30 days #30 tabs 01/07/24 01/29/24 Rx apixaban 5 mg tablet (Eliquis) 5 mg PO BID 30 days #60 tabs 01/07/24 01/29/24 Rx atorvastatin 40 mg tablet 40 mg PO DAILY 30 days #30 tabs 01/07/24 01/29/24 Rx benzonatate 100 mg capsule 100 mg PO TID PRN cough #20 caps 01/07/24 01/29/24 Rx diclofenac sodium 1 % topical gel 4 g EXT Q6H PRN knee pain 30 days 01/07/24 01/29/24 Rx (Voltaren Arthritis Pain) #100 grams gabapentin 300 mg capsule 300 mg PO HS 30 days #30 caps 01/07/24 01/29/24 Rx hydroxyzine HCl 25 mg tablet 25 - 50 mg (1 - 2 x 25 mg) PO Q6H 01/07/24 01/29/24 Rx PRN itching #20 tabs levothyroxine 100 mcg tablet 100 mcg PO QAM 30 days #0 tabs 01/07/24 01/29/24 Rx (Euthyrox) miconazole nitrate 2 % topical 1 applic EXT BID PRN fungal 01/07/24 01/29/24 Rx powder (Desenex) infection 30 days #85 grams cephalexin 500 mg capsule 500 mg PO TID 01/29/24 01/29/24 History torsemide 20 mg tablet 20 mg PO QAM 01/29/24 01/29/24 History Patient History Medical History Urolithiasis Morbid obesity with BMI of 60.0-69.9, adult Frequent urination at night Pre-diabetes Neuropathy Atrial fibrillation on Eliquis Cardiac murmur Follows with Dr. Olga Lidia BARRAZA (hyperlipidemia) Osteoporosis Hypothyroidism Tachycardia-bradycardia syndrome Hypertension Surgical History History of wisdom tooth extraction History of hip surgery BL Family History Other No family history of adverse response to anesthesia Social History Smoking Status: Former smoker Second Hand Exposure: No; Do You Dip or Chew Tobacco: No; Hx Alcohol Use: Yes Alcohol type: other Hx Substance Use: No Preferred Language: Syriac Communication Ability: Effective Relief Pharmacist Required: No Beliefs That Will Affect Care: None Current Living Situation: Significant Other Current Living Situation Comment: Home with lindsay How many Children do You have: 0 Other Information That Helps Us Care for You: No Feels Safe at Home: Yes Safety Concerns: Feels Safe At This Time Assistive Devices: Cane, Denture - Upper, Denture - Lower and Walker Review of Systems Constitutional: as per Subjective / HPI; no fever and no chills Respiratory: no cough and no dyspnea Cardiovascular: no chest pain Gastrointestinal: + abdominal pain (generalized, all over abdomen and suprapubic region); no bloating, no nausea and no vomiting Physical Exam Constitutional: WD/WN, vitals as above Respiratory: normal respiratory effort; no respiratory distress and no labored breathing Gastrointestinal (Abdomen): Inspection/Auscultation: normal bowel sounds Percussion/Palpation: + abdomen tender (generalized) and abdomen soft; no guarding and abdomen not rigid Psychiatric: Orientation: alert Eye Contact: + poor eye contact Speech: + loud speech Affect: + angry affect Results & Data Vital Signs (Past 12 Hours) Vital Signs Temp Pulse Pulse Resp BP BP Pulse Ox 02/06/24 10:52 71 02/06/24 08:09 36.6 C 73 16 109/56 L 95 02/06/24 03:22 36.6 C 79 20 145/80 H 97 02/06/24 03:00 Pulse Ox O2 Del Method O2 Del Method 02/06/24 10:52 02/06/24 08:09 Room Air 02/06/24 03:22 Room Air 02/06/24 03:00 98 Room Air PG Care Time/CCT Total # of Minutes Spent Total Time Spent with Patient: Total time spent is greater than 50% in coordination of care (as documented) at patient's floor/unit and/or counseling patient: Coding Level of Care Code 56004 INT INP/OBS CARE 2/55MIN Diagnoses Left lower quadrant abdominal pain R10.32
--- NOTE | 2024-02-06 12:05 | CT Scan Report ---
CT head/brain wo con CLINICAL HISTORY: change in mental status Technique: Contiguous axial CT images of the head were acquired from the base of the skull to the ramirez jennifer without intravenous contrast administration. Images were viewed in brain, subdural and bone [facility]. Automated dose lowering techniques and/or adjustment according to patient size were utilized for this exam. Comparison: Comparison is made to Findings: The ventricles, basal cisterns, and cerebral sulci are normal. There is no acute intracranial hemorrh age or evidence of acute territorial infarction. Neither mass effect, shift of the midline structures , nor abnormal extra-axial fluid collections are shown. Imaged portions of the paranasal sinuses and mastoid air cells are clear. The orbits appear normal. There are no acute fractures of the calvaria or scalp swelling. Impression: No acute intracranial hemorrhage, no evidence of acute territorial infarction or other acute intracra nial disease process. ACT 112: Negative or not required by law. Electronically signed by: Anshul Castle M.D. 02/06/2024 12:04 PM
[2024-02-06 14:44] LABS: Hematocrit (blood only) 24.1 % (37.0-47.0); Hemoglobin 7.2 g/dl (12.0-16.0)
--- NOTE | 2024-02-06 16:30 | Hospitalist Progress Note ---
Date of Service February 06, 2024 Assessment & Plan (1) Cellulitis: Plan: 63-year-old female with past medical significant for paroxysmal atrial fibrillation anticoagulated on Eliquis, tachybradycardia syndrome, HTN, HLD, hypothyroidism, obesity, kidney stones, neuropathy ,history of depression ,morbid obesity who was recently in the hospital for acute on chronic heart failure with preserved ejection fraction was aggressively diuresed, also had episode of rapid A-fib and FLETCHER and treated for UTI and discharged to rehab and patient was discharged home today comes back with weakness and ambulatory dysfunction. Patient says after going home today she could not able to walk and she was brought to the hospital. Feeling weak in the legs. Has some headache. Earlier had some nausea that resolved. Has some abdominal spasms. Danielle is draining dark urine. Normal bowel movements. Denies chest pain or shortness of breath. Currently no headache. Vision is blurry. No earache or runny nose currently. No sore throat. Appetite is down as per patient. Patient also had obstructive uropathy and s/p stent placement in October 2023. Supposed to follow with urology. She also had first diagnosed with COVID on May 04, 2023. Currently COVID still positive. Cellulitis Lower extremities and panniculitis and also left lateral thigh and hip Blood cultures: Negative to date Nasal MRSA:Negative Leukocytosis resolved Continue IV Zosyn>> transition to Rocephin Clinically improved Encouraged to increase physical activity Continue PT OT Will benefit from rehab placement Abdominal pain Unclear etiology ? Ureteral stent contributing Possible left psoas muscle abscess --CT ABD: There is thickening of the left psoas muscle. Findings may represent infectious process given patient's history of cellulitis, however evaluation for drainable abscess is limited by noncontrast technique. Bilateral renal stones. Appreciate surgery, urology input Could not obtain CT abdomen with contrast given renal function Will consider IR evaluation Cautious use of IV pain medications given lethargy Acute on chronic anemia Ongoing hematuria Hold Eliquis for now Explained in detail about patient's condition to patient and her Monitor H&H and transfuse as needed Hypokalemia Hypomagnesemia Replete electrolytes as needed Monitor Fungal infection In skin folds and groin region on miconazole cream L1 compression fracture--POA Bed to chair transfers as tolerated Not a candidate for surgery per Ortho Initiate ambulation with walker as tolerated Appreciate orthopedics input Patient currently not interested in rehab placement Hematuria in setting of Anticoagulation (Eliquis) use H/O obstructive uropathy S/P left ureteral stent placement H/O nephrolithiasis UTI--POA Urine culture grew Katheryn Ureteral stent pain Monitor CBC closely Appreciate Urology Input No plan for intervention by urology currently Continue Diflucan May need to hold Eliquis if patient would have significant hemoglobin drop or develop significant hematuria Needs follow-up with urology on discharge Added Flomax, Ditropan and Pyridium as needed CT abdomen today showed stent in appropriate position Currently no intervention needed per urology Chronic heart failure with preserved ejection fraction Continue home diuretics Monitor for volume overload A-fib H/O Tachybradycardia syndrome refused pacemaker in the past Continue metoprolol and digoxin On Eliquis for anticoagulation--held due to drop in hemoglobin, hematuria FLETCHER on CKD stage III/IV--POA Presented creatinine of 2.3 Cr levels back to baseline Monitor renal function Avoid nephrotoxic agents as able Hypertension Continue metoprolol and torsemide Monitor BP Hyperlipidemia Resume statin as able Morbid obesity Bariatric bed Needs counseling BMI 65 COVID-19 Initially diagnosed in December 04 Possible old infection versus new Currently asymptomatic Hypothyroidism Continue levothyroxine Anemia of Chronic disease Monitor CBC DVT Px: On Eliquis--Held CODE STATUS Full code Disposition Will benefit from Rehab placement Case management to help with discharge planning Admission and Anticipated Discharge Date Admission Date: January 30, 2024 Subjective Patient is seen and examined at bedside Seem to be little lethargic this morning Discussed with patient's at bedside States having generalized pain Still has hematuria Discussed with surgery today Denies any chest pain, dyspnea Review of Systems Review of Systems: All systems reviewed & are unremarkable except as noted in Subjective Physical Exam Physical Exam: Physical Exam: Vitals signs as noted above General Appearance:Morbidly Obese, no apparent distress Head: normocephalic, Atraumatic Eyes: normal inspection, EOMI Neck: supple, Trachea midline Respiratory/Chest: Decreased breath sounds, CTA, No accessory muscle use Cardiovascular: S1, S2, No murmur Abdomen/GI:Soft, + tender, Bowel sounds present Extremities/Musculoskeletal:normal inspection, 1-2+ B/L LE edema Neurologic/Psych:AAO, grossly no focal neurological deficits Skin: normal color, warm Results & Data Results & Data Vital Signs (Past 12 Hours) Vital Signs Temp Pulse Pulse Resp BP Pulse Ox O2 Del Method 02/06/24 14:37 Room Air 02/06/24 10:52 71 02/06/24 08:09 36.6 C 73 16 109/56 L 95 Room Air Laboratory Results Short CBC 02/06/24 02/06/24 Range/Units 05:43 13:59 Hgb 7.3 L 7.2 L (12.0-16.0) g/dl Hct 24.6 L 24.1 L (37.0-47.0) % BMP 02/06/24 05:43 Sodium 138 Potassium 3.8 Chloride 98 Carbon Dioxide 31 BUN 25 H Creatinine 1.58 H D Glucose 128 H Calcium 7.6 L
[2024-02-07 08:13] LABS: Albumin Level 2.2 gm/dl (3.4-5.0); BUN Creatinine Ratio 11.8 (10-20); Bilirubin Direct 0.1 mg/dl (0-0.2); Bilirubin,Total 0.3 mg/dl (0.2-1.0); Calcium 7.4 mg/dl (8.6-10.3); Creatinine Clr Calc Pharmacy 32.4 ml/min; Est GFR (African American) 20.1 ml/min; Est GFR (Non-African American) 17.4 ml/min; Potassium 3.7 mmol/L (3.5-5.1); Total Protein 5.2 gm/dl (6.0-8.3)
[2024-02-07 08:16] LABS: Hematocrit (blood only) 18.7 % (37.0-47.0); Hemoglobin 5.6 g/dl (12.0-16.0); Mean Corpuscular Hemoglobin 26.3 pg (25.0-34.0); Mean Corpuscular Hgb Conc 29.9 g/dL (32.0-36.0); Mean Corpuscular Volume 87.8 fL (80.0-100.0); Mean Platelet Volume 9.5 fL (9.4-12.4); Nucleated RBC # (auto) 0.09 K/uL (0.00-0.12); Nucleated RBC % (auto) 0.6 %; Platelet Count 340 K/uL (130-400); RDW Coefficient of Variation 18.5 % (11.5-14.5); RDW Standard Deviation 58.3 fL (36.4-46.3); Red Blood Count 2.13 M/uL (4.20-5.40); White Blood Count 14.33 K/ul (4.8-10.8)
[2024-02-07] MEDS ORDERED: SODIUM CHLORIDE 0.9% 250 ML IV PRN (08:17)
--- NOTE | 2024-02-07 08:39 | Hospitalist Progress Note ---
Date of Service February 07, 2024 Assessment & Plan (1) Cellulitis: Plan: 63-year-old female with past medical significant for paroxysmal atrial fibrillation anticoagulated on Eliquis, tachybradycardia syndrome, HTN, HLD, hypothyroidism, obesity, kidney stones, neuropathy ,history of depression ,morbid obesity who was recently in the hospital for acute on chronic heart failure with preserved ejection fraction was aggressively diuresed, also had episode of rapid A-fib and FLETCHER and treated for UTI and discharged to rehab and patient was discharged home today comes back with weakness and ambulatory dysfunction. Patient says after going home today she could not able to walk and she was brought to the hospital. Feeling weak in the legs. Has some headache. Earlier had some nausea that resolved. Has some abdominal spasms. Danielle is draining dark urine. Normal bowel movements. Denies chest pain or shortness of breath. Currently no headache. Vision is blurry. No earache or runny nose currently. No sore throat. Appetite is down as per patient. Patient also had obstructive uropathy and s/p stent placement in October 2023. Supposed to follow with urology. She also had first diagnosed with COVID on May 04, 2023. Currently COVID still positive. Cellulitis Lower extremities and panniculitis and also left lateral thigh and hip Blood cultures: Negative to date Nasal MRSA:Negative Leukocytosis resolved Continue IV Zosyn Clinically improved Encouraged to increase physical activity Continue PT OT Will benefit from rehab placement Abdominal pain Unclear etiology Likely due to Ureteral stent Possible left psoas muscle abscess --CT ABD: There is thickening of the left psoas muscle. Findings may represent infectious process given patient's history of cellulitis, however evaluation for drainable abscess is limited by noncontrast technique. Bilateral renal stones. Appreciate surgery, urology input Could not obtain CT abdomen with contrast given renal function Will consider IR evaluation Cautious use of IV pain medications given lethargy Denies any significant abdominal pain today Acute on blood loss anemia Ongoing hematuria Hold Eliquis for now Explained in detail about patient's condition to patient and her Monitor H&H and transfuse as needed Plan to transfuse 2 units PRBCs today Urology following Check FOBT FLETCHER on CKD stage III/IV--POA Likely ATN Cr:2.9 today Monitor renal function Avoid nephrotoxic agents as able Continue IV fluids Nephrology consulted Hematuria in setting of Anticoagulation (Eliquis) use H/O obstructive uropathy S/P left ureteral stent placement H/O nephrolithiasis UTI--POA Urine culture grew Katheryn CT abdomen today showed stent in appropriate position Ureteral stent pain Monitor CBC closely Appreciate Urology Input No plan for intervention by urology currently Continue Diflucan Held Eliquis due to hematuria/Anemia Needs follow-up with urology on discharge Added Flomax, Ditropan and Pyridium as needed Hypokalemia Hypomagnesemia Replete electrolytes as needed Monitor Fungal infection In skin folds and groin region on miconazole cream L1 compression fracture--POA Bed to chair transfers as tolerated Not a candidate for surgery per Ortho Initiate ambulation with walker as tolerated Appreciate orthopedics input Patient currently not interested in rehab placement Chronic heart failure with preserved ejection fraction Hold home diuretics due to FLETCHER Monitor for volume overload A-fib H/O Tachybradycardia syndrome refused pacemaker in the past Continue metoprolol and digoxin On Eliquis for anticoagulation--held due to drop in hemoglobin, hematuria Hypertension Continue metoprolol and torsemide Monitor BP Hyperlipidemia Resume statin as able Morbid obesity Bariatric bed Needs counseling BMI 65 COVID-19 Initially diagnosed in December 04 Possible old infection versus new Currently asymptomatic Hypothyroidism Continue levothyroxine Anemia of Chronic disease Monitor CBC DVT Px: On Eliquis--Held CODE STATUS Full code Disposition Will benefit from Rehab placement Case management to help with discharge planning Admission and Anticipated Discharge Date Admission Date: January 30, 2024 Subjective Patient is seen and examined at bedside States feeling tired this morning Also reports dry mouth Noted hematuria Reports nausea, vomiting but no significant abdominal pain today Discussed with urology and nephrology today Renal function worsened today Updated patient's Sister Roseanne over the phone No other obvious source of bleeding noted Denies any chest pain, dyspnea Review of Systems Review of Systems: All systems reviewed & are unremarkable except as noted in Subjective Physical Exam Physical Exam: Physical Exam: Vitals signs as noted above General Appearance:Morbidly Obese, no apparent distress Head: normocephalic, Atraumatic Eyes: normal inspection, EOMI Neck: supple, Trachea midline Respiratory/Chest: Decreased breath sounds, CTA, No accessory muscle use Cardiovascular: S1, S2, No murmur Abdomen/GI:Soft, +mild tender, Bowel sounds present Extremities/Musculoskeletal:normal inspection, 1-2+ B/L LE edema Neurologic/Psych:AAO, grossly no focal neurological deficits Skin: normal color, warm Results & Data Results & Data Vital Signs (Past 12 Hours) Vital Signs Temp Pulse Pulse Resp BP BP Pulse Ox 02/07/24 07:32 02/07/24 07:21 100/67 92 02/07/24 07:04 36.7 C 73 15 94/39 L 88 L 02/07/24 04:00 36.7 C 76 18 119/68 93 02/07/24 03:00 02/07/24 00:00 36.8 C 82 18 133/72 91 02/06/24 22:30 79 Pulse Ox O2 Del Method O2 Del Method 02/07/24 07:32 Room Air 02/07/24 07:21 Room Air 02/07/24 07:04 Nasal Cannula 02/07/24 04:00 Room Air 02/07/24 03:00 93 Room Air 02/07/24 00:00 Room Air 02/06/24 22:30 Laboratory Results Short CBC 02/06/24 02/07/24 Range/Units 13:59 07:24 WBC 14.33 H (4.8-10.8) K/ul Hgb 7.2 L 5.6 L* (12.0-16.0) g/dl Hct 24.1 L 18.7 L* (37.0-47.0) % Plt Count 340 (130-400) K/uL BMP 02/07/24 07:24 Sodium 138 Potassium 3.7 Chloride 99 Carbon Dioxide 31 BUN 33 H Creatinine 2.80 H D Glucose 107 H Calcium 7.4 L Liver Function 02/07/24 Range/Units 07:24 Total Bilirubin 0.3 (0.2-1.0) mg/dl Direct Bilirubin 0.1 (0-0.2) mg/dl AST 25 (13-39) U/L ALT 14 (7-52) U/L Alkaline Phosphatase 71 (34-104) U/L Albumin 2.2 L (3.4-5.0) gm/dl
[2024-02-07] MEDS: SODIUM CHLORIDE 0.9% 1,000 ML IV SCH (08:42)
--- NOTE | 2024-02-07 10:02 | Nephrology Consultation ---
Date of Consultation February 07, 2024 Assessment & Plan (1) Acute kidney injury superimposed on CKD: Waxing and waning Creat in the recent past. But Clear rise in last 2 days from 1.2 to now 2.8 coinciding with dropping hgb, BP and rising WBC. Clearly things are getting worse and FLETCHER is from ATN. Check lactic Acid in AM lab. No diuretics. No Contrast No NSAIDS. gentle hydration for now--RL at 80 ml per hr. very hard to asses Fluid status. maintain good BP. Daily labs and I and O charting. Dropping urine last few days. Diagnose cause of dropping hgb and treat any acute bleeding cause. (2) Closed compression fracture of lumbar vertebra: reviewed (3) Gross hematuria: (4) Ureteral stent present: reiewed urology note. No intervention planned for now (5) Nephrolithiasis: (6) Cellulitis: on Abx. make sure to Give least nephrotoxic abx and check levels when needed. rising WBC History of Present Illness Reason for Consultation: FLETCHER Attending Physician: Stef Lugo MD History of Present Illness 63/F with Complicated medical hisotry/re admission here since 01/30/2024. h/o left ureteral calculus s/p left ureteral stent placement 11/08/2023 admitted to medicine service with LE cellulitis and compression fracture.Creat was near normal 2 days ago at 1.2 and then her condition deteriorated--low BP, hgb dropping and now 5+, WBC rising and creat rising rapidly to 2.8. She had FLETCHER last admission also and needed high dose diuretics, Abx etc. Also has ureteric stent causing some pain and gross hematuria--but no acute obstruction--Urology already saw her this admission. During previous admission creat was at 2.7 at the peak but was going up and down a lot--impossible to truly assess her fluid status. was discharged on low dose torsemide. Now c/o Pain and weakness and no appetite. getting PRBC now. at bedside. reviewed medical records in detail. ROS---12 Systems reviewed and negative unless stated otherwise. Physical Exam Physical Exam: Physical Exam: Vitals signs as noted above General Appearance:Morbidly Obese, no apparent distress Head: normocephalic, Atraumatic Eyes: normal inspection, EOMI Neck: supple, Trachea midline Respiratory/Chest: Decreased breath sounds, CTA, No accessory muscle use Cardiovascular: S1, S2, No murmur Abdomen/GI:Soft, + tender, Bowel sounds present Extremities/Musculoskeletal:normal inspection, 1-2+ B/L LE edema Neurologic/Psych:AAO, grossly no focal neurological deficits Skin: normal color, warm Allergies Allergy/AdvReac Type Severity Reaction Status Date / Time lisinopril Allergy Intermediate Cough Verified 12/05/23 12:35 mineral oil Allergy rash to Verified 12/13/23 15:13 "Baby Oil" (mineral oil/fragrance/vit E) nickel Allergy itching Verified 12/24/22 08:43 simvastatin AdvReac Unknown Muscle Pain Verified 12/05/23 12:35 Home Medications Medication Instructions Recorded Confirmed Type ascorbic acid (vitamin C) 500 mg 500 mg PO QAM 30 days #30 tabs 01/06/24 01/29/24 Rx tablet (Vitamin C) digoxin 125 mcg (0.125 mg) tablet 0.125 mg PO MoWeFr@1600 30 days 01/06/24 01/29/24 Rx (Digitek) #13 tabs docusate sodium 100 mg capsule 100 mg PO BID 30 days #60 caps 01/06/24 01/29/24 Rx metoprolol succinate 50 mg 100 mg (2 x 50 mg) PO BID 30 days 01/06/24 01/29/24 Rx tablet,extended release 24 hr #120 tabs oxycodone-acetaminophen 10 mg-325 1 tab PO Q4H PRN severe pain #12 01/06/24 01/29/24 Rx mg tablet tabs potassium chloride 20 mEq 20 meq PO DAILY 30 days #30 tabs 01/06/24 01/29/24 Rx tablet,extended release alendronate 70 mg tablet 70 mg PO WK 30 days #30 tabs 01/07/24 01/29/24 Rx apixaban 5 mg tablet (Eliquis) 5 mg PO BID 30 days #60 tabs 01/07/24 01/29/24 Rx atorvastatin 40 mg tablet 40 mg PO DAILY 30 days #30 tabs 01/07/24 01/29/24 Rx benzonatate 100 mg capsule 100 mg PO TID PRN cough #20 caps 01/07/24 01/29/24 Rx diclofenac sodium 1 % topical gel 4 g EXT Q6H PRN knee pain 30 days 01/07/24 01/29/24 Rx (Voltaren Arthritis Pain) #100 grams gabapentin 300 mg capsule 300 mg PO HS 30 days #30 caps 01/07/24 01/29/24 Rx hydroxyzine HCl 25 mg tablet 25 - 50 mg (1 - 2 x 25 mg) PO Q6H 01/07/24 01/29/24 Rx PRN itching #20 tabs levothyroxine 100 mcg tablet 100 mcg PO QAM 30 days #0 tabs 01/07/24 01/29/24 Rx (Euthyrox) miconazole nitrate 2 % topical 1 applic EXT BID PRN fungal 01/07/24 01/29/24 Rx powder (Desenex) infection 30 days #85 grams cephalexin 500 mg capsule 500 mg PO TID 01/29/24 01/29/24 History torsemide 20 mg tablet 20 mg PO QAM 01/29/24 01/29/24 History Patient History Medical History Urolithiasis Morbid obesity with BMI of 60.0-69.9, adult Frequent urination at night Pre-diabetes Neuropathy Atrial fibrillation on Eliquis Cardiac murmur Follows with Dr. Olga Lidia BARRAZA (hyperlipidemia) Osteoporosis Hypothyroidism Tachycardia-bradycardia syndrome Hypertension Surgical History History of wisdom tooth extraction History of hip surgery BL Family History Other No family history of adverse response to anesthesia Social History Smoking Status: Former smoker Second Hand Exposure: No; Do You Dip or Chew Tobacco: No; Hx Alcohol Use: Yes Alcohol type: other Hx Substance Use: No Preferred Language: Amharic Communication Ability: Effective Studio Manager Required: No Beliefs That Will Affect Care: None Current Living Situation: Significant Other Current Living Situation Comment: Home with Fiancee How many Children do You have: 0 Other Information That Helps Us Care for You: No Feels Safe at Home: Yes Safety Concerns: Feels Safe At This Time Assistive Devices: Cane, Denture - Upper, Denture - Lower and Walker Results & Data Vital Signs (Past 12 Hours) Vital Signs Temp Pulse Pulse Resp BP BP BP 02/07/24 09:26 36.7 C 68 18 116/63 02/07/24 09:11 36.8 C 67 18 125/67 02/07/24 08:55 36.5 C 117/70 02/07/24 08:51 36.5 C 72 18 117/70 02/07/24 07:32 02/07/24 07:21 100/67 02/07/24 07:04 36.7 C 73 15 94/39 L 02/07/24 04:00 36.7 C 76 18 119/68 02/07/24 03:00 02/07/24 00:00 36.8 C 82 18 133/72 02/06/24 22:30 79 Pulse Ox Pulse Ox O2 Del Method O2 Del Method 02/07/24 09:26 94 02/07/24 09:11 92 02/07/24 08:55 96 Room Air 02/07/24 08:51 96 02/07/24 07:32 Room Air 02/07/24 07:21 92 Room Air 02/07/24 07:04 88 L Nasal Cannula 02/07/24 04:00 93 Room Air 02/07/24 03:00 93 Room Air 02/07/24 00:00 91 Room Air 02/06/24 22:30 Laboratory Results reviewed Diagnostic Findings reviewed CT abdomen
[2024-02-07] MEDS: PIPERACILLIN/TAZOBACTAM 4.5 GM in DEXTROSE 5% MINI-B 100 ML IV SCH ×2 (10:15→20:41)
--- NOTE | 2024-02-07 10:58 | Urology Progress Note ---
Date of Service February 07, 2024 Assessment & Plan (1) Urolithiasis: (2) Gross hematuria: (3) Ureteral stent present: Plan: 63yo/F with multiple medical issues and a hx of left ureteral calculus s/p left ureteral stent placement 11/08/2023 admitted to medicine service with LE cellulitis and compression fracture. Urology asked by hospitalist service to revisit patient due to hematuria Patient is afebrile and hemodynamically stable Labs todaycreatinine 2.8, WBC 14.33, hemoglobin 5.6she is ordered for 2 units of PRBCs Continue to trend labs and transfuse as felt necessary per primary team Urine culture 01/30/2024 with Katheryn albicans/dubliniensis Blood cultures on admission showed no growth Repeat blood cultures collected today and pending She was transitioned back to Zosyn from Ceftriaxone, remains on Fluconazole Danielle patent and draining milky brown urine- continue with Danielle for maximum drainage Continue with antibiotics/antifungal Stent discomfort and hematuria is expected in the setting of a stent Recommend continue with supportive care and max medical therapy for stent No acute intervention at this time Recommend her acute issues stabilize prior to stone treatment Will arrange outpatient f/u with our service will sign off, please contact our service with any issues or concerns Admission and Anticipated Discharge Date Admission Date: January 30, 2024 Subjective Urology asked by hospital team to revisit patient today due to hematuria Patient seen and examined at bedside She is awake and resting in bed, currently receiving PRBCs, no apparent distress at bedside She reports intermittent left sided discomfort, improved at present Danielle patent and draining brown milky appearing urine Reports intermittent nausea Denies fever or chills Review of Systems Constitutional: as per Subjective / HPI Gastrointestinal: as per Subjective / HPI Genitourinary: as per Subjective / HPI Physical Exam Constitutional: + morbidly obese; no acute distress Respiratory: no respiratory distress and no labored breathing Neurologic: awake Psychiatric: Orientation: alert and oriented x 3 Genitourinary: Danielle intact, draining light brown, milky appearing urine Results & Data Vital Signs (Past 12 Hours) Vital Signs Temp Pulse Pulse Resp BP BP BP 02/07/24 10:02 75 02/07/24 09:56 36.6 C 69 18 111/48 L 02/07/24 09:26 36.7 C 68 18 116/63 02/07/24 09:11 36.8 C 67 18 125/67 02/07/24 08:55 36.5 C 117/70 02/07/24 08:51 36.5 C 72 18 117/70 02/07/24 07:32 02/07/24 07:21 100/67 02/07/24 07:04 36.7 C 73 15 94/39 L 02/07/24 04:00 36.7 C 76 18 119/68 02/07/24 03:00 02/07/24 00:00 36.8 C 82 18 133/72 Pulse Ox Pulse Ox O2 Del Method O2 Del Method 02/07/24 10:02 02/07/24 09:56 02/07/24 09:26 94 02/07/24 09:11 92 02/07/24 08:55 96 Room Air 02/07/24 08:51 96 02/07/24 07:32 Room Air 02/07/24 07:21 92 Room Air 02/07/24 07:04 88 L Nasal Cannula 02/07/24 04:00 93 Room Air 02/07/24 03:00 93 Room Air 02/07/24 00:00 91 Room Air PG Care Time/CCT Total # of Minutes Spent Total Time Spent with Patient: Total time spent is greater than 50% in coordination of care (as documented) at patient's floor/unit and/or counseling patient: Coding Level of Care Code 39524 SUB INP/OBS CARE 350MIN Diagnoses Urolithiasis N20.9 Gross hematuria R31.0 Ureteral stent present Z96.0
[2024-02-07 11:23] LABS: INR 1.4 (0.9-1.1); Prothrombin Time 15.3 Seconds (9.0-12.0)
[2024-02-07] MEDS: PIPER/TAZO 4.5g in D5W MINI-B 100 ML IV ONE (14:55)
[2024-02-07 15:39] LABS: Hematocrit (blood only) 20.4 % (37.0-47.0); Hemoglobin 6.2 g/dl (12.0-16.0)
[2024-02-07 15:46] LABS: BUN Creatinine Ratio 12.2 (10-20); Calcium 7.5 mg/dl (8.6-10.3); Creatinine Clr Calc Pharmacy 30.7 ml/min; Est GFR (African American) 18.8 ml/min; Est GFR (Non-African American) 16.2 ml/min; Potassium 3.8 mmol/L (3.5-5.1)
[2024-02-07 20:54] LABS: Hematocrit (blood only) 23.3 % (37.0-47.0); Hemoglobin 7.3 g/dl (12.0-16.0)
[2024-02-08] MEDS: PHENAZOPYRIDINE HCL 200 MG TAB PO PRN (08:36)
[2024-02-08 09:16] LABS: BUN Creatinine Ratio 13.2 (10-20); Calcium 7.2 mg/dl (8.6-10.3); Est GFR (African American) 18.9 ml/min; Est GFR (Non-African American) 16.3 ml/min; Magnesium 2.1 mg/dl (1.7-2.4); Potassium 3.9 mmol/L (3.5-5.1)
[2024-02-08 09:29] LABS: Hematocrit (blood only) 20.4 % (37.0-47.0); Hemoglobin 6.5 g/dl (12.0-16.0)
[2024-02-08 09:30] LABS: Mean Corpuscular Hemoglobin 27.2 pg (25.0-34.0); Mean Corpuscular Hgb Conc 31.9 g/dL (32.0-36.0); Mean Corpuscular Volume 85.4 fL (80.0-100.0); Mean Platelet Volume 9.3 fL (9.4-12.4); Nucleated RBC # (auto) 0.15 K/uL (0.00-0.12); Nucleated RBC % (auto) 1.2 %; Platelet Count 305 K/uL (130-400); RDW Coefficient of Variation 18.7 % (11.5-14.5); RDW Standard Deviation 57.2 fL (36.4-46.3); Red Blood Count 2.39 M/uL (4.20-5.40); White Blood Count 12.56 K/ul (4.8-10.8)
[2024-02-08] MEDS ORDERED: SODIUM CHLORIDE 0.9% 250 ML IV PRN ×2 (09:36→09:38)
[2024-02-08 10:05] LABS: Basophils # (auto) 0.05 K/uL (0.00-0.20); Basophils % (auto) 0.4 %; Eosinophils # (auto) 0.45 K/uL (0.00-0.50); Eosinophils % (auto) 3.6 %; Immature Granulocytes # (auto) 0.67 K/uL (0.01-0.20); Immature Granulocytes % (auto) 5.3 %; Lymphocytes # (auto) 3.62 K/uL (1.20-3.40); Lymphocytes % (auto) 28.8 %; Monocytes # (auto) 1.13 K/uL (0.11-0.59); Neutrophils # (auto) 6.64 K/uL (1.40-6.50); Neutrophils % (auto) 52.9 %
--- NOTE | 2024-02-08 10:19 | Nephrology Progress Note ---
Date of Service February 08, 2024 Assessment & Plan Admission and Anticipated Discharge Date Admission Date: January 30, 2024 Subjective Assessment & Plan (1) Acute kidney injury superimposed on CKD: Waxing and waning Creat in the recent past. But Clear rise in last 3 days from 1.2 to now 2.95 coinciding with dropping hgb, BP and rising WBC. Clearly things are getting worse and FLETCHER is from [facility]. She is now oliguric FLETCHER--urine only 250 ml and dropping. gentle hydration for now--NSS at 80 ml per hr. very hard to asses Fluid status. lasix 80 iv x 1 as trial given very low Urine output maintain good BP. Daily labs and I and O charting. (2) Closed compression fracture of lumbar vertebra: reviewed (3) Gross hematuria: (4) Ureteral stent present: reviewed urology note. No intervention planned for now (5) Nephrolithiasis: (6) Cellulitis: on Abx. make sure to Give least nephrotoxic abx and check levels when needed. rising WBC S--hgb still low. C/o Lot of pain. She had PRBC. BP is fine. Urine only 250 ml yesterday and has been dropping last few days. Physical Exam Physical Exam: Physical Exam: Vitals signs as noted above General Appearance:Morbidly Obese, no apparent distress Head: normocephalic, Atraumatic Eyes: normal inspection, EOMI Neck: supple, Trachea midline Respiratory/Chest: Decreased breath sounds, CTA, No accessory muscle use Cardiovascular: S1, S2, No murmur Abdomen/GI:Soft, + tender, Bowel sounds present Extremities/Musculoskeletal:normal inspection, 1-2+ B/L LE edema Neurologic/Psych:AAO, grossly no focal neurological deficits Skin: normal color, warm Results & Data Vital Signs (Past 12 Hours) Vital Signs Temp Pulse Pulse Resp BP BP Pulse Ox 02/08/24 10:02 36.5 C 62 18 113/65 96 02/08/24 08:00 02/08/24 07:40 36.6 C 59 L 18 123/72 92 02/08/24 03:50 36.7 C 64 18 131/70 91 02/08/24 00:10 36.8 C 63 18 124/66 92 02/07/24 23:59 O2 Del Method 02/08/24 10:02 02/08/24 08:00 Room Air 02/08/24 07:40 Room Air 02/08/24 03:50 Room Air 02/08/24 00:10 Room Air 02/07/24 23:59 Room Air
[2024-02-08] MEDS: SODIUM CHLORIDE 0.9% 1,000 ML IV SCH (12:36)
[2024-02-08] MEDS: FUROSEMIDE 40 MG/4 ML VIAL IV ONE (12:38)
[2024-02-08 14:49] LABS: Hematocrit (blood only) 23.2 % (37.0-47.0); Hemoglobin 7.4 g/dl (12.0-16.0)
--- NOTE | 2024-02-08 15:30 | CT Scan Report ---
CT OF THE ABDOMEN AND PELVIS WITHOUT CONTRAST CLINICAL HISTORY: Anemia. Evaluate for bleed. COMPARISON STUDY: CT of the abdomen and pelvis February 05, 2024. TECHNIQUE: Axial images of the abdomen and pelvis were obtained without IV contrast. Images were revi ewed in the axial, sagittal, and coronal planes. Automated exposure control was utilized for the carly dy. A dose lowering technique was utilized adhering to the principles of ALARA. FINDINGS: Please note that the chest CT will be reported separately. Trace left pleural effusion. No pneumatosis, free air or portal venous gas is present. A left ureteral stent is in place. Mild left h ydronephrosis is similar to CT of February 05, 2024. Multiple left renal calculi measure up to 9 mm. Sens itivity for detection of ureteral calculi/fragments is diminished given artifact on this exam but non e are identified. A Danielle balloon within the bladder is present. Right renal calculi measure up to 8 mm. There is no right hydronephrosis. Note is made of a 13.6 x 11.9 x 6.9 cm hyperdense left retroper itoneal/infrarenal fluid collection consistent with a hematoma. Adjacent retroperitoneal hemorrhage i s present. There is also moderate acute hemorrhage within the left psoas muscle extending into left i liopsoas muscle. Presacral stranding/fluid is present. There is no evidence for a bowel obstruction. Evaluation of the abdomen and pelvis is suboptimal on this unenhanced exam. Unenhanced images of the liver, spleen, adrenal glands and pancreas are unremarkable. L1 vertebral fracture with 70% loss of v ertebral body height is unchanged in appearance. No additional fractures are present. There are posto perative findings within the bilateral femurs, unchanged. Sigmoid diverticulosis without evidence for acute diverticulitis. IMPRESSION: 1. Large left retroperitoneal/infrarenal hematoma, measuring 13.6 x 11.9 x 6.9 cm. Moderate associate d acute intramuscular hemorrhage within the left psoas and iliopsoas muscles. Small amount of extrape ritoneal hemorrhage extending into the pelvis. Findings discussed with Dr. Lugo, dictation. 2. Left ureteral stent in place. No change in mild left hydronephrosis. No ureteral calculi or fragme nts identified. Bilateral nephrolithiasis. No right hydronephrosis. ACT 112: Negative or not required by law. Electronically signed by: Giorgio Rincon M.D. 02/08/2024 3:29 PM
[2024-02-08] MEDS: ADVANCED PROBIOTIC 625 MG CAPSULE PO SCH (15:35)
--- NOTE | 2024-02-08 15:39 | CT Scan Report ---
CT chest diagnostic wo con CT DOSE: 2518.17 mGy.cm CLINICAL HISTORY: 63 years-old Female with Anemia. Acute anemia TECHNIQUE: Multiaxial CT images of the chest were performed without contrast. A dose lowering techni que was utilized adhering to the principles of ALARA. COMPARISON: CT abdomen and pelvis of same day FINDINGS: Unremarkable thyroid. 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 Moder ate cardiomegaly with decreased attenuation of the cardiac blood pool compatible with anemia. No mando cardial effusion. Extensive coronary artery calcifications. Atherosclerosis of the aorta without aneu rysm. No lymphadenopathy. Trace left pleural effusion. No pneumothorax or overt pulmonary edema. No airspace consolidation typi wesley for pneumonia. There are no suspicious pulmonary nodules or masses identified. Minimal subsegment al left basilar atelectasis. Patent airways. 1.4 cm left renal calculus. Partially imaged left retrop eritoneal hemorrhage. No acute fracture identified. Subcutaneous edema of the lateral left chest wall . Degenerative changes of the shoulders and spine. Healing subacute nondisplaced fracture of the ante rior lateral left fifth rib. Healed chronic rib fractures also noted. Partially imaged L1 fracture. IMPRESSION: 1. Small left pleural effusion with mild left basilar atelectasis. 2. Healing subacute nondisplaced anterolateral left fifth rib fracture. No pneumothorax. 3. Partially imaged left retroperitoneal hemorrhage. 4. Left nephrolithiasis. 5. Additional findings as above. ACT 112: Negative or not required by law. Electronically signed by: Harsh Olivarez M.D. 02/08/2024 3:38 PM
--- NOTE | 2024-02-08 15:58 | Surgery Progress Note ---
Date of Service February 08, 2024 Assessment & Plan (1) Retroperitoneal bleed: Plan: We have been asked to evaluate patient She had a Hbg drop yesterday into today to 5.6-6.[address] a/p was repeated today that showed "Large left retroperitoneal/infrarenal hematoma, measuring 13.6 x 11.9 x 6.9 cm. Moderate associated acute intramuscular hemorrhage within the left psoas and iliopsoas muscles. Small amount of extraperitoneal hemorrhage extending into the pelvis" Patient's marianne signs are stable. She has received 2 units yesterday and 1 unit today. Last Hbg was 7.4 On exam abdomen is soft and she is not tender Would keep on clears for tonight while closely monitoring hbg If any concerns for active bleeding would recommend transfer to tertiary center w/ IR capabilities for embolization Admission and Anticipated Discharge Date Admission Date: January 30, 2024 Supervising Physician Co-Signing Physician Notes I personally saw and evaluated the patient with Federica Martínez PA-C and agree with the assessment and plan 63 yo female with retroperitoneal bleed Her CT images and results were personally viewed and interpreted by myself She has blood in her retroperitoneum, but unable to determine if actively bleeding on a non-contrast CT She has received some blood yesterday but clinically feels improved Would repeat her Hgb later to ensure stability, hold her Eliquis and only give her clear liquids There is nothing surgery can offer as far as procedures to help with the bleeding If there is concern for further bleeding, a contrast CT would be the next step If there is active bleeding, then transfer to tertiary care center for IR and embolization Will see her tomorrow Subjective Patient feeling okay. Abdominal pain improving. Only some mild left lower abdominal discomfort Physical Exam Physical Exam: awake/alert, no distress Gastrointestinal (Abdomen): Inspection/Auscultation: abdomen not distended Percussion/Palpation: abdomen soft; abdomen nontender Results & Data Vital Signs (Past 12 Hours) Vital Signs Temp Pulse Pulse Resp BP BP Pulse Ox 02/08/24 12:27 97.7 F 63 14 117/53 L 96 02/08/24 11:35 97.7 F 63 16 110/70 94 02/08/24 11:07 97.7 F 60 16 101/65 94 02/08/24 11:05 97.7 F 60 16 101/65 94 02/08/24 10:35 97.7 F 62 18 98/54 L 92 02/08/24 10:20 97.7 F 63 20 110/68 94 02/08/24 10:02 97.7 F 62 18 113/65 96 02/08/24 08:00 02/08/24 07:40 97.9 F 59 L 18 123/72 92 O2 Del Method 02/08/24 12:27 02/08/24 11:35 02/08/24 11:07 Room Air 02/08/24 11:05 02/08/24 10:35 02/08/24 10:20 02/08/24 10:02 02/08/24 08:00 Room Air 02/08/24 07:40 Room Air PG Care Time/CCT Total # of Minutes Spent Total Time Spent with Patient: Total time spent is greater than 50% in coordination of care (as documented) at patient's floor/unit and/or counseling patient: Coding Level of Care Code 18352 SUB INP/OBS CARE 12/23MIN Diagnoses Retroperitoneal bleed R58
--- NOTE | 2024-02-08 16:15 | Hospitalist Progress Note ---
Date of Service February 08, 2024 Assessment & Plan (1) Cellulitis: Plan: 63-year-old female with past medical significant for paroxysmal atrial fibrillation anticoagulated on Eliquis, tachybradycardia syndrome, HTN, HLD, hypothyroidism, obesity, kidney stones, neuropathy ,history of depression ,morbid obesity who was recently in the hospital for acute on chronic heart failure with preserved ejection fraction was aggressively diuresed, also had episode of rapid A-fib and FLETCHER and treated for UTI and discharged to rehab and patient was discharged home today comes back with weakness and ambulatory dysfunction. Patient says after going home today she could not able to walk and she was brought to the hospital. Feeling weak in the legs. Has some headache. Earlier had some nausea that resolved. Has some abdominal spasms. Danielle is draining dark urine. Normal bowel movements. Denies chest pain or shortness of breath. Currently no headache. Vision is blurry. No earache or runny nose currently. No sore throat. Appetite is down as per patient. Patient also had obstructive uropathy and s/p stent placement in October 2023. Supposed to follow with urology. She also had first diagnosed with COVID on May 04, 2023. Currently COVID still positive. Cellulitis Lower extremities and panniculitis and also left lateral thigh and hip Blood cultures: Negative to date Nasal MRSA:Negative Leukocytosis resolved Continue IV Zosyn Clinically improved Encouraged to increase physical activity Continue PT OT Will benefit from rehab placement Retroperitoneal hematoma Acute intramuscular hemorrhage of left psoas and iliopsoas muscles Small extraperitoneal hemorrhage extending into pelvis Acute on chronic blood loss anemia Hematuria In setting of anticoagulation with Eliquis Eliquis held --last dose on 02/06/24 at 8:36AM Abdominal, groin pain secondary to hemorrhage History of fall prior to admission per patient Initial images were negative for hemorrhage --CT ABD on 02/08/24:Large left retroperitoneal/infrarenal hematoma, measuring 13.6 x 11.9 x 6.9 cm. Moderate associated acute intramuscular hemorrhage within the left psoas and iliopsoas muscles. Small amount of extraperitoneal hemorrhage extending into the pelvis. -- Avoid any anticoagulation Monitor H&H and transfuse as needed --S/P 3 units PRBCs Hematuria currently resolved Appreciate surgery, urology input Monitor H&H, hemodynamics closely FOBT pending Transfer to PCU requested on 02/07/2024 for closer monitoring Patient and patient's partner updated on multiple occasions. Also updated patient's sister over the phone on 02/07/[address] Ly: on 02/07/2024 and 02/08/2024. Given last dose of Eliquis on 02/05, no indication for Kcentra currently If any signs of active bleed, plan to transfer to tertiary care facility for possible IR intervention Clear liquid diet for now Diarrhea Likely due to antibiotics Stool for C. 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--POA Likely ATN Cr:2.95 today Monitor renal function Avoid nephrotoxic agents as able Continue IV fluids Appreciate Nephrology Input Hematuria in setting of Anticoagulation (Eliquis) use H/O obstructive uropathy S/P left ureteral stent placement H/O nephrolithiasis UTI--POA Urine culture grew Katheryn CT abdomen today showed stent in appropriate position Monitor CBC closely Appreciate Urology Input No plan for intervention by urology currently Continue Diflucan Held Eliquis due to hematuria/Anemia Needs follow-up with urology on discharge Added Flomax, Ditropan and Pyridium as needed Hypokalemia Hypomagnesemia Replete electrolytes as needed Monitor Fungal infection In skin folds and groin region on miconazole cream L1 compression fracture--POA Bed to chair transfers as tolerated Not a candidate for surgery per Ortho Initiate ambulation with walker as tolerated Appreciate orthopedics input Patient currently not interested in rehab placement Chronic heart failure with preserved ejection fraction Hold home diuretics due to FLETCHER Monitor for volume overload A-fib H/O Tachybradycardia syndrome refused pacemaker in the past Continue metoprolol and digoxin On Eliquis for anticoagulation--held due hematuria/Retroperitoneal bleed Hypertension Continue metoprolol Torsemide--held due to FLETCHER Monitor BP Hyperlipidemia Resume statin as able Morbid obesity Bariatric bed Needs counseling BMI 65 COVID-19 Initially diagnosed in December 04 Possible old infection versus new Currently asymptomatic Hypothyroidism Continue levothyroxine DVT Px: On Eliquis--Held SCDs for now CODE STATUS Full code Disposition Case management to help with discharge planning Admission and Anticipated Discharge Date Admission Date: January 30, 2024 Subjective Patient is seen and examined at bedside Hematuria resolved Denies any abdominal pain today Reports having some diarrhea Discussed with patient's partner at bedside Admits to have mild cough but otherwise no complaints Discussed with surgery today Denies any chest pain, dyspnea, nausea, vomiting today Review of Systems Review of Systems: All systems reviewed & are unremarkable except as noted in Subjective Physical Exam Physical Exam: Physical Exam: Vitals signs as noted above General Appearance:Morbidly Obese, no apparent distress Head: normocephalic, Atraumatic Eyes: normal inspection, EOMI Neck: supple, Trachea midline Respiratory/Chest: Decreased breath sounds, CTA, No accessory muscle use Cardiovascular: S1, S2, No murmur Abdomen/GI:Soft, +mild tender, Bowel sounds present Extremities/Musculoskeletal:normal inspection, 1-2+ B/L LE edema Neurologic/Psych:AAO, grossly no focal neurological deficits Skin: normal color, warm Results & Data Results & Data Vital Signs (Past 12 Hours) Vital Signs Temp Pulse Pulse Resp BP BP Pulse Ox 02/08/24 12:27 36.5 C 63 14 117/53 L 96 02/08/24 11:35 36.5 C 63 16 110/70 94 02/08/24 11:07 36.5 C 60 16 101/65 94 02/08/24 11:05 36.5 C 60 16 101/65 94 02/08/24 10:35 36.5 C 62 18 98/54 L 92 02/08/24 10:20 36.5 C 63 20 110/68 94 02/08/24 10:02 36.5 C 62 18 113/65 96 02/08/24 08:00 02/08/24 07:40 36.6 C 59 L 18 123/72 92 O2 Del Method 02/08/24 12:27 02/08/24 11:35 02/08/24 11:07 Room Air 02/08/24 11:05 02/08/24 10:35 02/08/24 10:20 02/08/24 10:02 02/08/24 08:00 Room Air 02/08/24 07:40 Room Air Laboratory Results Short CBC 02/07/24 02/08/24 02/08/24 Range/Units 20:34 08:35 14:26 WBC 12.56 H (4.8-10.8) K/ul Hgb 7.3 L 6.5 L* 7.4 L (12.0-16.0) g/dl Hct 23.3 L 20.4 L* 23.2 L (37.0-47.0) % Plt Count 305 (130-400) K/uL BMP 02/08/24 08:35 Sodium 135 L Potassium 3.9 Chloride 97 L Carbon Dioxide 30 BUN 39 H Creatinine 2.95 H Glucose 92 Calcium 7.2 L
[2024-02-08 21:43] LABS: Hemoglobin 7.4 g/dl (12.0-16.0)
[2024-02-09 06:23] LABS: Hematocrit (blood only) 22.1 % (37.0-47.0); Mean Corpuscular Hemoglobin 27.3 pg (25.0-34.0); Mean Corpuscular Hgb Conc 31.7 g/dL (32.0-36.0); Mean Corpuscular Volume 86.3 fL (80.0-100.0); Mean Platelet Volume 9.6 fL (9.4-12.4); Nucleated RBC # (auto) 0.11 K/uL (0.00-0.12); Nucleated RBC % (auto) 1.2 %; Platelet Count 311 K/uL (130-400); RDW Coefficient of Variation 18.1 % (11.5-14.5); Red Blood Count 2.56 M/uL (4.20-5.40); White Blood Count 9.51 K/ul (4.8-10.8)
[2024-02-09 06:40] LABS: BUN Creatinine Ratio 15.2 (10-20); Calcium 7.1 mg/dl (8.6-10.3); Creatinine Clr Calc Pharmacy 34.4 ml/min; Est GFR (African American) 21.7 ml/min; Est GFR (Non-African American) 18.7 ml/min; Potassium 3.6 mmol/L (3.5-5.1)
[2024-02-09 07:25] LABS: Basophils # (auto) 0.06 K/uL (0.00-0.20); Basophils % (auto) 0.6 %; Eosinophils # (auto) 0.41 K/uL (0.00-0.50); Eosinophils % (auto) 4.3 %; Immature Granulocytes % (auto) 5.3 %; Lymphocytes # (auto) 3.02 K/uL (1.20-3.40); Lymphocytes % (auto) 31.8 %; Monocytes # (auto) 0.83 K/uL (0.11-0.59); Monocytes % (auto) 8.7 %; Neutrophils # (auto) 4.69 K/uL (1.40-6.50); Neutrophils % (auto) 49.3 %; Polychromasia 1+
[2024-02-09] MEDS ORDERED: SODIUM CHLORIDE 0.9% 250 ML IV PRN (07:38)
--- NOTE | 2024-02-09 08:52 | Surgery Progress Note ---
Date of Service February 09, 2024 Assessment & Plan (1) Retroperitoneal bleed: Plan: CT yesterday 02/08/24 showed "Large left retroperitoneal/infrarenal hematoma, measuring 13.6 x 11.9 x 6.9 cm. Moderate associated acute intramuscular hemorrhage within the left psoas and iliopsoas muscles. Small amount of extraperitoneal hemorrhage extending into the pelvis" No imaging completed today PT Denies Abd pain this AM tolerating clear liquid h/h 7 (7.4), 22 (23) reports feeling tired, denies light headiness , dizziness VSS If there is concern for further bleeding, a contrast CT would be the next step If there is active bleeding, then transfer to tertiary care center for IR and embolization Admission and Anticipated Discharge Date Admission Date: January 30, 2024 Supervising Physician Co-Signing Physician Notes I personally saw and evaluated the patient with Desi PRUETT and agree with the assessment and plan 63 yo female with retroperitoneal bleed She is stable hemodynamically If she becomes unstable, transfer for IR Surgery will sign off Subjective Denies Abd pain this AM tolerating clear liquid reports feeling tired Review of Systems Constitutional: + fatigue; no fever and no chills Respiratory: + cough; no dyspnea Cardiovascular: no chest pain Gastrointestinal: no abdominal pain, no nausea and no vomiting Physical Exam Physical Exam: alert oriented Constitutional: + obese; no acute distress Respiratory: normal respiratory effort and able to speak in complete sentences; no respiratory distress Cardiovascular: Rate/Rhythm: regular rate (62) Gastrointestinal (Abdomen): Inspection/Auscultation: + significant pannus; abdomen not distended Percussion/Palpation: abdomen soft; abdomen nontender and no guarding Skin: + ecchymosis (Right forearm) Neurologic: awake Psychiatric: A+Ox3, euthymic affect Results & Data Vital Signs (Past 12 Hours) Vital Signs Temp Pulse Pulse Resp BP Pulse Ox O2 Del Method 02/09/24 07:28 62 02/09/24 07:19 98.1 F 62 17 122/69 91 Room Air 02/09/24 03:16 98.1 F 62 16 121/61 95 Room Air 02/08/24 22:38 97.9 F 60 18 98/66 L 98 Room Air 02/08/24 22:00 58 L PG Care Time/CCT Total # of Minutes Spent Total Time Spent with Patient: Total time spent is greater than 50% in coordination of care (as documented) at patient's floor/unit and/or counseling patient: Coding Level of Care Code 94292 SUB INP/OBS CARE Diagnoses Retroperitoneal bleed R58
--- NOTE | 2024-02-09 10:20 | Nephrology Progress Note ---
Date of Service February 09, 2024 Assessment & Plan Admission and Anticipated Discharge Date Admission Date: January 30, 2024 Subjective Assessment & Plan (1) Acute kidney injury superimposed on CKD: Waxing and waning Creat in the recent past. But Clear rise in last 3 days from 1.2 to now 2.95 coinciding with dropping hgb, BP and rising WBC. Clearly things are getting worse and FLETCHER is from ATN in the setting of large retroperitoneal Bleed needing many PRBC. Big increase in UO--250 to 900 now. Creat came down so hopefully worse is over. gentle hydration for now--NSS at 80 ml per hr. very hard to asses Fluid status. lasix 80 iv x 1 again today. maintain good BP. Daily labs and I and O charting. (2) Closed compression fracture of lumbar vertebra: reviewed (3) Gross hematuria: (4) Ureteral stent present: reviewed urology note. No intervention planned for now (5) Nephrolithiasis: (6) Cellulitis: on Abx. make sure to Give least nephrotoxic abx and check levels when needed. rising WBC S--hgb still low. found to have Large retroperitoneal hematoma. Getting PRBC. NOw no pain. BP is fine. Urine went up from 250 to 900. Exam Physical Exam: Physical Exam: Vitals signs as noted above General Appearance:Morbidly Obese, no apparent distress Head: normocephalic, Atraumatic Eyes: normal inspection, EOMI Neck: supple, Trachea midline Respiratory/Chest: Decreased breath sounds, CTA, No accessory muscle use Cardiovascular: S1, S2, No murmur Abdomen/GI:Soft, + tender, Bowel sounds present Extremities/Musculoskeletal:normal inspection, 1-2+ B/L LE edema Neurologic/Psych:AAO, grossly no focal neurological deficits Skin: normal color, warm Results & Data Vital Signs (Past 12 Hours) Vital Signs Temp Pulse Pulse Resp BP BP Pulse Ox 02/09/24 09:45 36.7 C 62 18 114/52 L 02/09/24 09:09 36.6 C 64 16 111/57 L 93 02/09/24 08:47 36.5 C 62 14 114/49 L 92 02/09/24 07:28 62 02/09/24 07:19 36.7 C 62 17 122/69 91 02/09/24 03:16 36.7 C 62 16 121/61 95 02/08/24 22:38 36.6 C 60 18 98/66 L 98 O2 Del Method 02/09/24 09:45 02/09/24 09:09 02/09/24 08:47 02/09/24 07:28 02/09/24 07:19 Room Air 02/09/24 03:16 Room Air 02/08/24 22:38 Room Air
[2024-02-09] MEDS: FUROSEMIDE 40 MG/4 ML VIAL IV ONE (11:20)
--- NOTE | 2024-02-09 15:11 | Hospitalist Progress Note ---
Date of Service February 09, 2024 Assessment & Plan (1) Cellulitis: Plan: 63-year-old female with past medical significant for paroxysmal atrial fibrillation anticoagulated on Eliquis, tachybradycardia syndrome, HTN, HLD, hypothyroidism, obesity, kidney stones, neuropathy ,history of depression ,morbid obesity who was recently in the hospital for acute on chronic heart failure with preserved ejection fraction was aggressively diuresed, also had episode of rapid A-fib and FLETCHER and treated for UTI and discharged to rehab and patient was discharged home today comes back with weakness and ambulatory dysfunction. Patient says after going home today she could not able to walk and she was brought to the hospital. Feeling weak in the legs. Has some headache. Earlier had some nausea that resolved. Has some abdominal spasms. Danielle is draining dark urine. Normal bowel movements. Denies chest pain or shortness of breath. Currently no headache. Vision is blurry. No earache or runny nose currently. No sore throat. Appetite is down as per patient. Patient also had obstructive uropathy and s/p stent placement in October 2023. Supposed to follow with urology. She also had first diagnosed with COVID on May 04, 2023. Currently COVID still positive. Cellulitis Lower extremities and panniculitis and also left lateral thigh and hip Blood cultures: Negative to date Nasal MRSA:Negative Leukocytosis resolved Continue IV Zosyn Clinically improved Encouraged to increase physical activity Continue PT OT Will benefit from rehab placement Retroperitoneal hematoma Acute intramuscular hemorrhage of left psoas and iliopsoas muscles Small extraperitoneal hemorrhage extending into pelvis Acute on chronic blood loss anemia Hematuria In setting of anticoagulation with Eliquis Eliquis held --last dose on 02/06/24 at 8:36AM Abdominal, groin pain secondary to hemorrhage History of fall prior to admission per patient Initial images were negative for hemorrhage --CT ABD on 02/08/24:Large left retroperitoneal/infrarenal hematoma, measuring 13.6 x 11.9 x 6.9 cm. Moderate associated acute intramuscular hemorrhage within the left psoas and iliopsoas muscles. Small amount of extraperitoneal hemorrhage extending into the pelvis. -- Avoid any anticoagulation Monitor H&H and transfuse as needed --S/P 3 units PRBCs Hematuria currently resolved Appreciate surgery, urology input Monitor H&H, hemodynamics closely FOBT pending Transfer to PCU requested on 02/07/2024 for closer monitoring Patient and patient's partner updated on multiple occasions. Also updated patient's sister over the phone on 02/07/[address] Ly: on 02/07/2024 and 02/08/2024. Given last dose of Eliquis on 02/05, no indication for Kcentra currently If any signs of active bleed, plan to transfer to tertiary care facility for possible IR intervention Clear liquid diet for now Will transfuse 1 unit PRBC today Monitor H&H and transfuse as needed Consider repeat CT imaging if needed Diarrhea Likely due to antibiotics Stool for C. 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--POA Likely ATN, prerenal due to blood loss Cr:2.6 today Monitor renal function Avoid nephrotoxic agents as able Continue IV fluids Appreciate Nephrology Input Renal function slowly improved Hematuria in setting of Anticoagulation (Eliquis) use H/O obstructive uropathy S/P left ureteral stent placement H/O nephrolithiasis UTI--POA Urine culture grew Katheryn CT abdomen today showed stent in appropriate position Monitor CBC closely Appreciate Urology Input No plan for intervention by urology currently Completed Diflucan course Held Eliquis due to hematuria/Anemia Needs follow-up with urology on discharge Added Flomax, Ditropan and Pyridium as needed Hypokalemia Hypomagnesemia Replete electrolytes as needed Monitor Fungal infection In skin folds and groin region on miconazole cream L1 compression fracture--POA Bed to chair transfers as tolerated Not a candidate for surgery per Ortho Initiate ambulation with walker as tolerated Appreciate orthopedics input Patient currently not interested in rehab placement Chronic heart failure with preserved ejection fraction Hold home diuretics due to FLETCHER Monitor for volume overload A-fib H/O Tachybradycardia syndrome refused pacemaker in the past Continue metoprolol and digoxin On Eliquis for anticoagulation--held due hematuria/Retroperitoneal bleed Hypertension Continue metoprolol Torsemide--held due to FLETCHER Monitor BP Hyperlipidemia Resume statin as able Morbid obesity Bariatric bed Needs counseling BMI 65 COVID-19 Initially diagnosed in December 04 Possible old infection versus new Currently asymptomatic Hypothyroidism Continue levothyroxine DVT Px: On Eliquis--Held SCDs for now CODE STATUS Full code Disposition Case management to help with discharge planning Admission and Anticipated Discharge Date Admission Date: January 30, 2024 Subjective Patient is seen and examined at bedside Offers no new complaints today Urine output improving Discussed with nephrology today Denies any abdominal pain, nausea, vomiting Hematuria resolved Generalized weakness slowly improving Denies any chest pain, dyspnea Patient's partner at bedside Review of Systems Review of Systems: All systems reviewed & are unremarkable except as noted in Subjective Physical Exam Physical Exam: Physical Exam: Vitals signs as noted above General Appearance:Morbidly Obese, no apparent distress Head: normocephalic, Atraumatic Eyes: normal inspection, EOMI Neck: supple, Trachea midline Respiratory/Chest: Decreased breath sounds, CTA, No accessory muscle use Cardiovascular: S1, S2, No murmur Abdomen/GI:Soft, +mild tender, Bowel sounds present Extremities/Musculoskeletal:normal inspection, 1-2+ B/L LE edema Neurologic/Psych:AAO, grossly no focal neurological deficits Skin: normal color, warm Results & Data Results & Data Vital Signs (Past 12 Hours) Vital Signs Temp Pulse Pulse Resp BP BP Pulse Ox 02/09/24 14:50 36.6 C 60 19 118/48 L 94 02/09/24 14:44 66 02/09/24 11:15 36.5 C 57 L 16 120/70 02/09/24 11:15 36.5 C 57 L 18 120/70 94 02/09/24 10:23 36.7 C 59 L 20 127/72 95 02/09/24 09:45 36.7 C 62 18 114/52 L 02/09/24 09:09 36.6 C 64 16 111/57 L 93 02/09/24 08:47 36.5 C 62 14 114/49 L 92 02/09/24 08:00 02/09/24 07:28 62 02/09/24 07:19 36.7 C 62 17 122/69 91 02/09/24 03:16 36.7 C 62 16 121/61 95 O2 Del Method 02/09/24 14:50 Room Air 02/09/24 14:44 02/09/24 11:15 02/09/24 11:15 02/09/24 10:23 Room Air 02/09/24 09:45 02/09/24 09:09 02/09/24 08:47 02/09/24 08:00 Room Air 02/09/24 07:28 02/09/24 07:19 Room Air 02/09/24 03:16 Room Air Laboratory Results Short CBC 02/08/24 02/09/24 Range/Units 21:07 05:57 WBC 9.51 (4.8-10.8) K/ul Hgb 7.4 L 7.0 L (12.0-16.0) g/dl Hct 23.0 L 22.1 L (37.0-47.0) % Plt Count 311 (130-400) K/uL BMP 02/09/24 05:57 Sodium 136 Potassium 3.6 Chloride 98 Carbon Dioxide 29 BUN 40 H Creatinine 2.63 H D Glucose 86 Calcium 7.1 L
[2024-02-09 16:29] LABS: Hematocrit (blood only) 25.6 % (37.0-47.0); Hemoglobin 7.9 g/dl (12.0-16.0)
[2024-02-09] MEDS: LOPERAMIDE HCL 2 MG CAP PO PRN (18:42)
[2024-02-09 20:37] LABS: Hematocrit (blood only) 25.2 % (37.0-47.0)
[2024-02-10] MEDS ORDERED: Nursing to Pharmacy Communication SCH (01:15)
[2024-02-10 07:08] LABS: Basophils # (auto) 0.06 K/uL (0.00-0.20); Basophils % (auto) 0.6 %; Eosinophils # (auto) 0.34 K/uL (0.00-0.50); Eosinophils % (auto) 3.6 %; Hematocrit (blood only) 25.2 % (37.0-47.0); Hemoglobin 7.7 g/dl (12.0-16.0); Immature Granulocytes # (auto) 0.37 K/uL (0.01-0.20); Immature Granulocytes % (auto) 3.9 %; Lymphocytes # (auto) 3.33 K/uL (1.20-3.40); Lymphocytes % (auto) 35.3 %; Mean Corpuscular Hemoglobin 26.9 pg (25.0-34.0); Mean Corpuscular Hgb Conc 30.6 g/dL (32.0-36.0); Mean Corpuscular Volume 88.1 fL (80.0-100.0); Mean Platelet Volume 9.4 fL (9.4-12.4); Monocytes # (auto) 1.02 K/uL (0.11-0.59); Monocytes % (auto) 10.8 %; Neutrophils # (auto) 4.31 K/uL (1.40-6.50); Neutrophils % (auto) 45.8 %; Nucleated RBC # (auto) 0.06 K/uL (0.00-0.12); Nucleated RBC % (auto) 0.6 %; Platelet Count 302 K/uL (130-400); RDW Coefficient of Variation 18.6 % (11.5-14.5); Red Blood Count 2.86 M/uL (4.20-5.40); White Blood Count 9.43 K/ul (4.8-10.8)
[2024-02-10 07:23] LABS: BUN Creatinine Ratio 17.1 (10-20); Calcium 7.2 mg/dl (8.6-10.3); Creatinine Clr Calc Pharmacy 42.8 ml/min; Est GFR (African American) 28.4 ml/min; Est GFR (Non-African American) 24.5 ml/min; Potassium 3.5 mmol/L (3.5-5.1)
[2024-02-10 07:32] LABS: Polychromasia 1+
--- NOTE | 2024-02-10 09:03 | Gastrointestinal Consultation ---
Date of Consultation February 10, 2024 Assessment & Plan (1) Anemia: 63 year old medically complex female with history of paroxysmal atrial fibrillation anticoagulated on Eliquis, tachybradycardia syndrome, HTN, HLD, hypothyroidism, obesity, kidney stones, neuropathy ,history of depression ,morbid obesity, CHF, cellulitis, retroperitoneal hematoma, hematuria, GI asked to evaluate for heme + stools and anemia. Her anemia is likely multifactorial given the large retroperitoneal hemorrhage. There is not report nor documentation of an active GI bleed and she is hemodynamically stable. No plan for inpatient endoscopic evaluation. Once she recovers, if her anemia persists, she can arrange an OP EGD/Colonoscopy. Recall GI as needed. Thank you for allowing us to participate in the care of this patient. Please call with any acute changes, questions or concerns. Please see addendum below with additional recommendation from my supervising physician. Supervising Physician Co-Signing Physician Notes Agree with pe and plan as documented. Obese fm in nad, bed bound appearing, very obese abdomen but without ttp in her abdomen. Anemia appears to be related to her rp hemorrhoage. There are no signs of an active gi bleed- she denies hematochezia, hematemesis. History of Present Illness Reason for Consultation: anemia, heme + stools Requesting Physician: Brittney Attending Physician: Stef Lugo MD History of Present Illness 63 year oald female with history of paroxysmal atrial fibrillation anticoagulated on Eliquis, tachybradycardia syndrome, HTN, HLD, hypothyroidism, obesity, kidney stones, neuropathy ,history of depression ,morbid obesity who was recently in the hospital for acute on chronic heart failure with preserved ejection fraction was aggressively diuresed, also had episode of rapid A-fib and FLETCHER and treated for UTI and discharged to rehab and patient was discharged home comes back with weakness and ambulatory dysfunction admitted with cellulitis, Retroperitoneal hematoma, hematuria, GI asked to evaluate for heme + stools and anemia. Pt was seen and evaluated, chart reviewed. She notes that she has not had any black or blood stools/emesis. No fever, chills, CP, SOB. CTAP 2023: . Large left retroperitoneal/infrarenal hematoma, measuring 13.6 x 11.9 x 6.9 cm. Moderate associated acute intramuscular hemorrhage within the left psoas and iliopsoas muscles. Small amount of extraperitoneal hemorrhage extending into the pelvis. Findings discussed with Dr. Lugo, dictation. Colonoscopy 2022: - Diverticulosis in the left colon. - One 3 mm polyp in the transverse colon, removed with a cold biopsy forceps. Resected and retrieved. - The entire examined colon is normal on direct and retroflexion views. Allergies Allergy/AdvReac Type Severity Reaction Status Date / Time lisinopril Allergy Intermediate Cough Verified 12/05/23 12:35 mineral oil Allergy rash to Verified 12/13/23 15:13 "Baby Oil" (mineral oil/fragrance/vit E) nickel Allergy itching Verified 12/24/22 08:43 simvastatin AdvReac Unknown Muscle Pain Verified 12/05/23 12:35 Home Medications Medication Instructions Recorded Confirmed Type ascorbic acid (vitamin C) 500 mg 500 mg PO QAM 30 days #30 tabs 01/06/24 01/29/24 Rx tablet (Vitamin C) digoxin 125 mcg (0.125 mg) tablet 0.125 mg PO MoWeFr@1600 30 days 01/06/24 01/29/24 Rx (Digitek) #13 tabs docusate sodium 100 mg capsule 100 mg PO BID 30 days #60 caps 01/06/24 01/29/24 Rx metoprolol succinate 50 mg 100 mg (2 x 50 mg) PO BID 30 days 01/06/24 01/29/24 Rx tablet,extended release 24 hr #120 tabs oxycodone-acetaminophen 10 mg-325 1 tab PO Q4H PRN severe pain #12 01/06/24 01/29/24 Rx mg tablet tabs potassium chloride 20 mEq 20 meq PO DAILY 30 days #30 tabs 01/06/24 01/29/24 Rx tablet,extended release alendronate 70 mg tablet 70 mg PO WK 30 days #30 tabs 01/07/24 01/29/24 Rx apixaban 5 mg tablet (Eliquis) 5 mg PO BID 30 days #60 tabs 01/07/24 01/29/24 Rx atorvastatin 40 mg tablet 40 mg PO DAILY 30 days #30 tabs 01/07/24 01/29/24 Rx benzonatate 100 mg capsule 100 mg PO TID PRN cough #20 caps 01/07/24 01/29/24 Rx diclofenac sodium 1 % topical gel 4 g EXT Q6H PRN knee pain 30 days 01/07/24 01/29/24 Rx (Voltaren Arthritis Pain) #100 grams gabapentin 300 mg capsule 300 mg PO HS 30 days #30 caps 01/07/24 01/29/24 Rx hydroxyzine HCl 25 mg tablet 25 - 50 mg (1 - 2 x 25 mg) PO Q6H 01/07/24 01/29/24 Rx PRN itching #20 tabs levothyroxine 100 mcg tablet 100 mcg PO QAM 30 days #0 tabs 01/07/24 01/29/24 Rx (Euthyrox) miconazole nitrate 2 % topical 1 applic EXT BID PRN fungal 01/07/24 01/29/24 Rx powder (Desenex) infection 30 days #85 grams cephalexin 500 mg capsule 500 mg PO TID 01/29/24 01/29/24 History torsemide 20 mg tablet 20 mg PO QAM 01/29/24 01/29/24 History Patient History Medical History Urolithiasis Morbid obesity with BMI of 60.0-69.9, adult Frequent urination at night Pre-diabetes Neuropathy Atrial fibrillation on Eliquis Cardiac murmur Follows with Dr. Olga Lidia BARRAZA (hyperlipidemia) Osteoporosis Hypothyroidism Tachycardia-bradycardia syndrome Hypertension Surgical History History of wisdom tooth extraction History of hip surgery BL Family History Other No family history of adverse response to anesthesia Social History Smoking Status: Former smoker Second Hand Exposure: No; Do You Dip or Chew Tobacco: No; Hx Alcohol Use: Yes Alcohol type: other Hx Substance Use: No Preferred Language: Romansh Communication Ability: Effective Principal Web Developer Required: No Beliefs That Will Affect Care: None Current Living Situation: Significant Other Current Living Situation Comment: Home with Fiancee How many Children do You have: 0 Feels Safe at Home: Yes Assistive Devices: Cane, Denture - Upper, Denture - Lower and Walker Review of Systems Review of Systems: All systems reviewed & are unremarkable except as noted in HPI & below Physical Exam Constitutional: Chronicall ill appearing female laying in bed, in no acute distress Respiratory: normal respiratory effort, lungs clear to auscultation Cardiovascular: Rate/Rhythm: regular rate and regular rhythm Gastrointestinal (Abdomen): Percussion/Palpation: + abdomen tender and abdomen soft; no guarding and abdomen not rigid Skin: no rashes, warm and dry Results & Data Vital Signs (Past 12 Hours) Vital Signs Temp Pulse Pulse Resp BP Pulse Ox O2 Del Method 02/10/24 07:52 36.9 C 61 20 149/62 H 91 Room Air 02/10/24 02:32 37.4 C 64 18 122/69 92 Room Air 02/09/24 22:50 36.5 C 95 H 20 136/77 95 Room Air 02/09/24 22:42 59 L Laboratory Results 02/10/24 02/10/24 02/09/24 Range/Units Unknown 05:53 Unknown WBC 9.43 (4.8-10.8) K/ul RBC 2.86 L (4.20-5.40) M/uL Hgb 7.7 L (12.0-16.0) g/dl Hct 25.2 L (37.0-47.0) % MCV 88.1 (80.0-100.0) fL MCH 26.9 (25.0-34.0) pg MCHC 30.6 L (32.0-36.0) g/dL RDW Std Deviation 57.0 H (36.4-46.3) fL RDW Coeff of Johnny 18.6 H (11.5-14.5) % Plt Count 302 (130-400) K/uL MPV 9.4 (9.4-12.4) fL Immature Gran % (Auto) 3.9 % Neut % (Auto) 45.8 % Lymph % (Auto) 35.3 % [place] % (Auto) 10.8 % Eos % (Auto) 3.6 % Baso % (Auto) 0.6 % Neut # (Auto) 4.31 (1.40-6.50) K/uL Lymph # (Auto) 3.33 (1.20-3.40) K/uL [place] # (Auto) 1.02 H (0.11-0.59) K/uL Eos # (Auto) 0.34 (0.00-0.50) K/uL Baso # (Auto) 0.06 (0.00-0.20) K/uL Immature Gran # (Auto) 0.37 H (0.01-0.20) K/uL Absolute Nucleated RBC 0.06 (0.00-0.12) K/uL Nucleated RBC % (auto) 0.6 % Polychromasia 1+ Sodium 135 L (136-145) mmol/L Potassium 3.5 (3.5-5.1) mmol/L Chloride 100 (98-107) mmol/L Carbon Dioxide 27 (21-32) mmol/L Anion Gap 8 (3-11) BUN 36 H (6-23) mg/dl Creatinine 2.11 H D (0.6-1.2) mg/dl Est Cr Clr Drug Dosing 42.8 ml/min Est GFR ( Amer) 28.4 ml/min Est GFR (Non-Af Amer) 24.5 ml/min BUN/Creatinine Ratio 17.1 (10-20) Glucose 84 (70-99(Fasting)) mg/dl Calcium 7.2 L (8.6-10.3) mg/dl Stool Occult Bld Scrn Positive A (Negative) Stl C. diff Tox B Gene Negative Cdiff Gene (Neg) Crossmatch 02/09/24 02/09/24 02/06/24 Range/Units 20:29 14:46 10:30 WBC (4.8-10.8) K/ul RBC (4.20-5.40) M/uL Hgb 8.0 L 7.9 L (12.0-16.0) g/dl Hct 25.2 L 25.6 L (37.0-47.0) % MCV (80.0-100.0) fL MCH (25.0-34.0) pg MCHC (32.0-36.0) g/dL RDW Std Deviation (36.4-46.3) fL RDW Coeff of Johnny (11.5-14.5) % Plt Count (130-400) K/uL MPV (9.4-12.4) fL Immature Gran % (Auto) % Neut % (Auto) % Lymph % (Auto) % [place] % (Auto) % Eos % (Auto) % Baso % (Auto) % Neut # (Auto) (1.40-6.50) K/uL Lymph # (Auto) (1.20-3.40) K/uL [place] # (Auto) (0.11-0.59) K/uL Eos # (Auto) (0.00-0.50) K/uL Baso # (Auto) (0.00-0.20) K/uL Immature Gran # (Auto) (0.01-0.20) K/uL Absolute Nucleated RBC (0.00-0.12) K/uL Nucleated RBC % (auto) % Polychromasia Sodium (136-145) mmol/L Potassium (3.5-5.1) mmol/L Chloride (98-107) mmol/L Carbon Dioxide (21-32) mmol/L Anion Gap (3-11) BUN (6-23) mg/dl Creatinine (0.6-1.2) mg/dl Est Cr Clr Drug Dosing ml/min Est GFR ( Amer) ml/min Est GFR (Non-Af Amer) ml/min BUN/Creatinine Ratio (10-20) Glucose (70-99(Fasting)) mg/dl Calcium (8.6-10.3) mg/dl Stool Occult Bld Scrn (Negative) Stl C. diff Tox B Gene (Neg) Crossmatch See Detail
--- NOTE | 2024-02-10 14:20 | Nephrology Progress Note ---
Date of Service February 10, 2024 Assessment & Plan Admission and Anticipated Discharge Date Admission Date: January 30, 2024 Subjective Assessment & Plan (1) Acute kidney injury superimposed on CKD: Waxing and waning Creat in the recent past. But Clear rise in last 3 days from 1.2 to now 2.95 coinciding with dropping hgb, BP and rising WBC. Clearly things are getting worse and FLETCHER is from [facility] in the setting of large retroperitoneal Bleed needing many PRBC. Big increase in UO--250 to 900 to 1700 now. Creat came down further so hopefully worse is over. D/c Iv fluid. NO lasix today maintain good BP. Daily labs and I and O charting. (2) Closed compression fracture of lumbar vertebra: reviewed (3) Gross hematuria: (4) Ureteral stent present: reviewed urology note. No intervention planned for now (5) Nephrolithiasis: (6) Cellulitis: on Abx. make sure to Give least nephrotoxic abx and check levels when needed. rising WBC S--hgb still low. Conitnued rise in Urine--was 1700 ml yesterday and dropping creat. had heme+ve stool. Seen by GI. BP at times getting high now. Exam Physical Exam: Physical Exam: Vitals signs as noted above General Appearance:Morbidly Obese, no apparent distress Head: normocephalic, Atraumatic Eyes: normal inspection, EOMI Neck: supple, Trachea midline Respiratory/Chest: Decreased breath sounds, CTA, No accessory muscle use Cardiovascular: S1, S2, No murmur Abdomen/GI:Soft, + tender, Bowel sounds present Extremities/Musculoskeletal:normal inspection, 1-2+ B/L LE edema Neurologic/Psych:AAO, grossly no focal neurological deficits Skin: normal color, warm Results & Data Vital Signs (Past 12 Hours) Vital Signs Temp Pulse Resp BP Pulse Ox O2 Del Method 02/10/24 10:56 36.6 C 20 130/70 93 Room Air 02/10/24 07:52 36.9 C 61 20 149/62 H 91 Room Air 02/10/24 02:32 37.4 C 64 18 122/69 92 Room Air
--- NOTE | 2024-02-10 17:09 | Hospitalist Progress Note ---
Date of Service February 10, 2024 Assessment & Plan (1) Cellulitis: Plan: 63-year-old female with past medical significant for paroxysmal atrial fibrillation anticoagulated on Eliquis, tachybradycardia syndrome, HTN, HLD, hypothyroidism, obesity, kidney stones, neuropathy ,history of depression ,morbid obesity who was recently in the hospital for acute on chronic heart failure with preserved ejection fraction was aggressively diuresed, also had episode of rapid A-fib and FLETCHER and treated for UTI and discharged to rehab and patient was discharged home today comes back with weakness and ambulatory dysfunction. Patient says after going home today she could not able to walk and she was brought to the hospital. Feeling weak in the legs. Has some headache. Earlier had some nausea that resolved. Has some abdominal spasms. Danielle is draining dark urine. Normal bowel movements. Denies chest pain or shortness of breath. Currently no headache. Vision is blurry. No earache or runny nose currently. No sore throat. Appetite is down as per patient. Patient also had obstructive uropathy and s/p stent placement in October 2023. Supposed to follow with urology. She also had first diagnosed with COVID on May 04, 2023. Currently COVID still positive. Cellulitis Lower extremities and panniculitis and also left lateral thigh and hip Blood cultures: Negative to date Nasal MRSA:Negative Leukocytosis resolved Continue IV Zosyn Clinically improved Encouraged to increase physical activity Continue PT OT Will benefit from rehab placement Case management to help with discharge planning Retroperitoneal hematoma Acute intramuscular hemorrhage of left psoas and iliopsoas muscles Small extraperitoneal hemorrhage extending into pelvis Acute on chronic blood loss anemia Hematuria In setting of anticoagulation with Eliquis Eliquis held --last dose on 02/06/24 at 8:36AM Abdominal, groin pain secondary to hemorrhage History of fall prior to admission per patient Initial images were negative for hemorrhage --CT ABD on 02/08/24:Large left retroperitoneal/infrarenal hematoma, measuring 13.6 x 11.9 x 6.9 cm. Moderate associated acute intramuscular hemorrhage within the left psoas and iliopsoas muscles. Small amount of extraperitoneal hemorrhage extending into the pelvis. -- Avoid any anticoagulation Monitor H&H and transfuse as needed --S/P 4 units PRBCs Hematuria currently resolved Appreciate surgery, urology input Monitor H&H, hemodynamics closely FOBT + Transfer to PCU requested on 02/07/2024 for closer monitoring Patient and patient's partner updated on multiple occasions. Also updated patient's sister over the phone on 02/07/[address] Ly: on 02/07/2024 and 02/08/2024. Given last dose of Eliquis on 02/05, no indication for Kcentra currently If any signs of active bleed, plan to transfer to tertiary care facility for possible IR intervention -- Appreciate GI input Monitor H&H and transfuse as needed Consider repeat CT imaging if needed Hemoglobin fairly stable Diarrhea Likely due to antibiotics Stool for C. 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--POA Likely ATN, prerenal due to blood loss Cr:2.1 today Monitor renal function Avoid nephrotoxic agents as able Appreciate Nephrology Input Discontinue IV fluids per nephrology Hematuria in setting of Anticoagulation (Eliquis) use H/O obstructive uropathy S/P left ureteral stent placement H/O nephrolithiasis UTI--POA Urine culture grew Katheryn CT abdomen today showed stent in appropriate position Monitor CBC closely Appreciate Urology Input No plan for intervention by urology currently Completed Diflucan course Held Eliquis due to hematuria/Anemia Needs follow-up with urology on discharge Added Flomax, Ditropan and Pyridium as needed Hypokalemia Hypomagnesemia Replete electrolytes as needed Monitor Fungal infection In skin folds and groin region on miconazole cream L1 compression fracture--POA Bed to chair transfers as tolerated Not a candidate for surgery per Ortho Initiate ambulation with walker as tolerated Appreciate orthopedics input Patient currently not interested in rehab placement Chronic heart failure with preserved ejection fraction Hold home diuretics due to FLETCHER Monitor for volume overload A-fib H/O Tachybradycardia syndrome refused pacemaker in the past Continue metoprolol and digoxin On Eliquis for anticoagulation--held due hematuria/Retroperitoneal bleed Hypertension Continue metoprolol Torsemide--held due to FLETCHER Monitor BP Hyperlipidemia Resume statin as able Morbid obesity Bariatric bed Needs counseling BMI 65 COVID-19 Initially diagnosed in December 04 Possible old infection versus new Currently asymptomatic Hypothyroidism Continue levothyroxine DVT Px: On Eliquis--Held SCDs for now CODE STATUS Full code Disposition Case management to help with discharge planning Admission and Anticipated Discharge Date Admission Date: January 30, 2024 Subjective Patient is seen and examined at bedside No recurrence of obvious bleeding issues today States feeling tired Tolerating diet Had 1 loose BM today Renal function slowly improving Denies any chest pain, dyspnea, abdominal pain, nausea, vomiting No recurrence of hematuria Review of Systems Review of Systems: All systems reviewed & are unremarkable except as noted in Subjective Physical Exam Physical Exam: Physical Exam: Vitals signs as noted above General Appearance:Morbidly Obese, no apparent distress Head: normocephalic, Atraumatic Eyes: normal inspection, EOMI Neck: supple, Trachea midline Respiratory/Chest: Decreased breath sounds, CTA, No accessory muscle use Cardiovascular: S1, S2, No murmur Abdomen/GI:Soft, +mild tender, Bowel sounds present Extremities/Musculoskeletal:normal inspection, 1-2+ B/L LE edema Neurologic/Psych:AAO, grossly no focal neurological deficits Skin: normal color, warm Results & Data Results & Data Vital Signs (Past 12 Hours) Vital Signs Temp Pulse Resp BP Pulse Ox O2 Del Method 02/10/24 15:24 36.6 C 66 20 125/65 92 Room Air 02/10/24 10:56 36.6 C 20 130/70 93 Room Air 02/10/24 07:52 36.9 C 61 20 149/62 H 91 Room Air Laboratory Results Short CBC 02/09/24 02/10/24 Range/Units 20:29 05:53 WBC 9.43 (4.8-10.8) K/ul Hgb 8.0 L 7.7 L (12.0-16.0) g/dl Hct 25.2 L 25.2 L (37.0-47.0) % Plt Count 302 (130-400) K/uL [facility] 02/10/24 05:53 Sodium 135 L Potassium 3.5 Chloride 100 Carbon Dioxide 27 BUN 36 H Creatinine 2.11 H D Glucose 84 Calcium 7.2 L
[2024-02-11 07:08] LABS: Hematocrit (blood only) 25.2 % (37.0-47.0); Hemoglobin 7.7 g/dl (12.0-16.0); Mean Corpuscular Hemoglobin 26.9 pg (25.0-34.0); Mean Corpuscular Hgb Conc 30.6 g/dL (32.0-36.0); Mean Corpuscular Volume 88.1 fL (80.0-100.0); Mean Platelet Volume 9.3 fL (9.4-12.4); Nucleated RBC # (auto) 0.02 K/uL (0.00-0.12); Nucleated RBC % (auto) 0.2 %; Platelet Count 304 K/uL (130-400); RDW Coefficient of Variation 18.9 % (11.5-14.5); RDW Standard Deviation 57.6 fL (36.4-46.3); Red Blood Count 2.86 M/uL (4.20-5.40); White Blood Count 8.09 K/ul (4.8-10.8)
[2024-02-11 07:51] LABS: BUN Creatinine Ratio 22.2 (10-20); Calcium 7.3 mg/dl (8.6-10.3); Creatinine Clr Calc Pharmacy 62.3 ml/min; Est GFR (Non-African American) 38.8 ml/min; Magnesium 1.9 mg/dl (1.7-2.4); Potassium 3.3 mmol/L (3.5-5.1)
--- NOTE | 2024-02-11 09:51 | Nephrology Progress Note ---
Date of Service February 11, 2024 Assessment & Plan Admission and Anticipated Discharge Date Admission Date: January 30, 2024 Subjective Assessment & Plan (1) Acute kidney injury superimposed on CKD: Waxing and waning Creat in the recent past. But Clear rise from 1.2 to now 2.95 coinciding with dropping hgb, BP and rising WBC. Clearly things were getting worse and FLETCHER is from [facility] in the setting of large retroperitoneal Bleed needing many PRBC. But now has had clear renal recovery with creat down to 1.4. Big increase in UO--250 to 1700 now. Creat came down further so hopefully worse is over. lasix 80 mg po daily. Raise kcl to 20 meq twice daily. Give extra 40 kcl now. maintain good BP. Daily labs and I and O charting. (2) Closed compression fracture of lumbar vertebra: reviewed (3) Gross hematuria: (4) Ureteral stent present: reviewed urology note. No intervention planned for now (5) Nephrolithiasis: (6) Cellulitis: on Abx. make sure to Give least nephrotoxic abx and check levels when needed. rising WBC S--hgb still low. Urine--was 1500 ml yesterday and dropping creat. Exam Physical Exam: Physical Exam: Vitals signs as noted above General Appearance:Morbidly Obese, no apparent distress Head: normocephalic, Atraumatic Eyes: normal inspection, EOMI Neck: supple, Trachea midline Respiratory/Chest: Decreased breath sounds, CTA, No accessory muscle use Cardiovascular: S1, S2, No murmur Abdomen/GI:Soft, + tender, Bowel sounds present Extremities/Musculoskeletal:normal inspection, 1-2+ B/L LE edema Neurologic/Psych:AAO, grossly no focal neurological deficits Skin: normal color, warm Results & Data Vital Signs (Past 12 Hours) Vital Signs Temp Pulse Pulse Resp BP BP Pulse Ox 02/11/24 07:47 36.7 C 64 18 144/72 H 92 02/11/24 03:13 36.6 C 65 22 111/68 93 02/10/24 23:45 36.6 C 61 20 101/64 94 02/10/24 23:00 66 O2 Del Method 02/11/24 07:47 Room Air 02/11/24 03:13 Room Air 02/10/24 23:45 Room Air 02/10/24 23:00
[2024-02-11] MEDS: POTASSIUM CHLORIDE CRTAB 20 MEQ TABCR PO STA (10:30)
[2024-02-11] MEDS: FUROSEMIDE 80 MG TAB PO SCH (10:30)
--- NOTE | 2024-02-11 10:48 | Hospitalist Progress Note ---
Date of Service February 11, 2024 Assessment & Plan (1) Cellulitis: Plan: 63-year-old female with past medical significant for paroxysmal atrial fibrillation anticoagulated on Eliquis, tachybradycardia syndrome, HTN, HLD, hypothyroidism, obesity, kidney stones, neuropathy ,history of depression ,morbid obesity who was recently in the hospital for acute on chronic heart failure with preserved ejection fraction was aggressively diuresed, also had episode of rapid A-fib and FLETCHER and treated for UTI and discharged to rehab and patient was discharged home but comes back with weakness and ambulatory dysfunction. Patient says after going home, she could not able to walk and she was brought to the hospital. Patient also had obstructive uropathy and s/p stent placement in October 2023. Supposed to follow with urology. She also had first diagnosed with COVID on May 04, 2023. COVID still positive on admission. Cellulitis Involving lower extremities and panniculitis and also left lateral thigh and hip Blood cultures: Negative to date Nasal MRSA:Negative Leukocytosis resolved Cellulitis improved Has been on antibiotics since admission. Stop today Retroperitoneal hematoma Acute intramuscular hemorrhage of left psoas and iliopsoas muscles Small extraperitoneal hemorrhage extending into pelvis Acute on chronic blood loss anemia Hematuria In setting of anticoagulation with Eliquis Eliquis held --last dose on 02/06/24 at 8:36AM Abdominal, groin pain secondary to hemorrhage History of fall prior to admission per patient Initial imaging studies (CTs) were negative for hemorrhage --CT ABD on 02/08/24:Large left retroperitoneal/infrarenal hematoma, measuring 13.6 x 11.9 x 6.9 cm. Moderate associated acute intramuscular hemorrhage within the left psoas and iliopsoas muscles. Small amount of extraperitoneal hemorrhage extending into the pelvis. -- Avoid any anticoagulation for now --S/P 4 units PRBCs Hematuria currently resolved Surgery, urology recommendations noted Previous Provider had discussed with Dr. Ly: on 02/07/2024 and 02/08/2024. Given last dose of Eliquis on 02/05, no indication for Kcentra currently If any signs of active bleed, plan to transfer to tertiary care facility for possible IR intervention FOBT + GI eval noted Hb remains stable today Diarrhea Stool for C. difficile negative Started on probiotics Antibiotics discontinued today FLETCHER on CKD stage III/IV--POA Likely ATN, prerenal due to blood loss Cr:1.44 today Monitor renal function Avoid nephrotoxic agents as able IVF stopped Nephro recs appreciated Hematuria in setting of Anticoagulation (Eliquis) use H/O obstructive uropathy S/P left ureteral stent placement H/O nephrolithiasis UTI--POA Urine culture grew Katheryn CT abdomen today showed stent in appropriate position Appreciate Urology Input No plan for intervention by urology currently Completed Diflucan course Held Eliquis due to hematuria/Anemia Needs follow-up with urology on discharge Added Flomax, Ditropan and Pyridium as needed Hypokalemia Hypomagnesemia Replete electrolytes as needed Monitor Fungal infection In skin folds and groin region on miconazole cream L1 compression fracture--POA Bed to chair transfers as tolerated Not a candidate for surgery per Ortho Initiate ambulation with walker as tolerated Appreciate orthopedics input Continue PT/OT CM working on placement Chronic heart failure with preserved ejection fraction Hold home diuretics due to FLETCHER Monitor for volume overload A-fib H/O Tachybradycardia syndrome refused pacemaker in the past Continue metoprolol and digoxin On Eliquis for anticoagulation--held due hematuria/Retroperitoneal bleed Hypertension Continue metoprolol Torsemide--held due to FLETCHER Monitor BP Hyperlipidemia Resume statin as able Morbid obesity Bariatric bed Needs counseling BMI 64.5 COVID-19 Initially diagnosed in December 04 Possible old infection versus new Currently asymptomatic Hypothyroidism Continue levothyroxine DVT Px: On Eliquis--Held SCDs for now CODE STATUS Full code Disposition Case management to help with discharge planning I spent a total of 50 minutes coordinating, documenting and providing care for this patient excluding time spent in performance of separately billed services Admission and Anticipated Discharge Date Admission Date: January 30, 2024 Subjective Patient seen and examined. Reports generalized weakness. Reports loose stool this morning. No hematochezia or melena per RN. Denies any pain anywhere today. Denied cough, chest pain or shortness of breath Physical Exam Constitutional: + well hydrated and + morbidly obese; no acute distress Eyes: PERRL, conjunctivae normal, anicteric sclerae ENMT: external ear and nose normal, oropharynx normal Respiratory: normal respiratory effort; no respiratory distress Decreased breath sounds likely due to body habitus Cardiovascular: Rate/Rhythm: regular rate and regular rhythm S1 S2 Gastrointestinal (Abdomen): normal bowel sounds, soft, nontender, no hepatosplenomegaly Musculoskeletal: Pedal edema Neurologic: PERRL, EOMI, accommodation nl, no face palsy, no dysarthria Psychiatric: A+Ox3, euthymic affect Results & Data Results & Data Vital Signs (Past 12 Hours) Vital Signs Temp Pulse Pulse Resp BP BP Pulse Ox 02/11/24 10:35 02/11/24 07:47 36.7 C 64 18 144/72 H 92 02/11/24 03:13 36.6 C 65 22 111/68 93 02/10/24 23:45 36.6 C 61 20 101/64 94 02/10/24 23:00 66 O2 Del Method O2 Flow Rate 02/11/24 10:35 Nasal Cannula 2 02/11/24 07:47 Room Air 02/11/24 03:13 Room Air 02/10/24 23:45 Room Air 02/10/24 23:00 Laboratory Results Abnormal lab results 02/11/24 Range/Units 06:34 RBC 2.86 L (4.20-5.40) M/uL Hgb 7.7 L (12.0-16.0) g/dl Hct 25.2 L (37.0-47.0) % MCHC 30.6 L (32.0-36.0) g/dL RDW Std Deviation 57.6 H (36.4-46.3) fL RDW Coeff of Johnny 18.9 H (11.5-14.5) % MPV 9.3 L (9.4-12.4) fL Potassium 3.3 L (3.5-5.1) mmol/L BUN 32 H (6-23) mg/dl Creatinine 1.44 H D (0.6-1.2) mg/dl BUN/Creatinine Ratio 22.2 H (10-20) Calcium 7.3 L (8.6-10.3) mg/dl Ionized Calcium 1.06 L (1.12-1.32) mmol/L
[2024-02-11] MEDS: POTASSIUM CHLORIDE CRTAB 20 MEQ TABCR PO SCH (20:19)
[2024-02-12 08:08] LABS: Hematocrit (blood only) 25.5 % (37.0-47.0); Hemoglobin 7.8 g/dl (12.0-16.0); Mean Corpuscular Hemoglobin 27.3 pg (25.0-34.0); Mean Corpuscular Hgb Conc 30.6 g/dL (32.0-36.0); Mean Corpuscular Volume 89.2 fL (80.0-100.0); Mean Platelet Volume 9.1 fL (9.4-12.4); Platelet Count 298 K/uL (130-400); RDW Coefficient of Variation 19.2 % (11.5-14.5); RDW Standard Deviation 60.1 fL (36.4-46.3); Red Blood Count 2.86 M/uL (4.20-5.40); White Blood Count 8.34 K/ul (4.8-10.8)
[2024-02-12 08:22] LABS: BUN Creatinine Ratio 21.3 (10-20); Calcium 7.5 mg/dl (8.6-10.3); Creatinine Clr Calc Pharmacy 63.7 ml/min; Est GFR (African American) 46.2 ml/min; Est GFR (Non-African American) 39.8 ml/min; Potassium 3.4 mmol/L (3.5-5.1)
--- NOTE | 2024-02-12 11:34 | Nephrology Progress Note ---
Date of Service February 12, 2024 Assessment & Plan (1) Acute kidney injury superimposed on CKD: Plan: Waxing and waning Creat in the recent past. Creatinine today 1.4 which is stable. FLETCHER is from [facility]N in setting of acute blood loss anemia. Daily labs and I and O charting. Dropping urine last few days. Monitor hemoglobin and transfuse as needed. (2) Ureteral stent present: Plan: reiewed urology note. No intervention planned for now (3) Nephrolithiasis: (4) Cellulitis: Plan: on Abx. make sure to Give least nephrotoxic abx and check levels when needed. Admission and Anticipated Discharge Date Admission Date: January 30, 2024 Subjective Seen for acute kidney injury. No shortness of breath or leg pain. Patient is concerned about inability to move her left leg which she is attributing to the kidney stones. Review of Systems 2 Review of Systems: All other systems were reviewed and negative except as noted in HPI Physical Exam 2 Physical Exam: General exam: Appears comfortable, no acute distress HEENT: Pupils are equal and reactive to light Neck: No JVD, neck is supple trachea is midline Respiratory system: Clear breath sounds bilaterally. Gastrointestinal: Abdomen is soft, non distended, non tender, bowel sounds are present CVS: Regular rate and rhythm. No murmurs, rubs or gallops Musculoskeletal: No joint or muscle tenderness Extremities: Non tender, no edema, peripheral pulses are present Neuro: Oriented, no tremors, no focal neurological deficits Skin: No rashes Results & Data Vital Signs (Past 12 Hours) Vital Signs Temp Pulse Pulse Resp BP BP Pulse Ox 02/12/24 07:33 36.7 C 64 18 131/65 92 02/12/24 02:33 36.5 C 63 18 138/74 91 02/11/24 23:39 63 O2 Del Method 02/12/24 07:33 Room Air 02/12/24 02:33 Room Air 02/11/24 23:39 Laboratory Results 02/12/24 07:52 02/12/24 07:52 WBC 8.34 RBC 2.86 L MCV 89.2 MCH 27.3 MCHC 30.6 L RDW Std Deviation 60.1 H RDW Coeff of Johnny 19.2 H Plt Count 298 MPV 9.1 L
--- NOTE | 2024-02-12 15:39 | Hospitalist Progress Note ---
Date of Service February 12, 2024 Assessment & Plan (1) Cellulitis: Plan: 63-year-old female with past medical significant for paroxysmal atrial fibrillation anticoagulated on Eliquis, tachybradycardia syndrome, HTN, HLD, hypothyroidism, obesity, kidney stones, neuropathy ,history of depression ,morbid obesity who was recently in the hospital for acute on chronic heart failure with preserved ejection fraction was aggressively diuresed, also had episode of rapid A-fib and FLETCHER and treated for UTI and discharged to rehab and patient was discharged home but comes back with weakness and ambulatory dysfunction. Patient says after going home, she could not able to walk and she was brought to the hospital. Patient also had obstructive uropathy and s/p stent placement in October 2023. Supposed to follow with urology. She also had first diagnosed with COVID on May 04, 2023. COVID still positive on admission. Cellulitis Involving lower extremities and panniculitis and also left lateral thigh and hip Blood cultures: Negative to date Nasal MRSA:Negative Leukocytosis resolved Cellulitis improved Completed antibiotics Retroperitoneal hematoma Acute intramuscular hemorrhage of left psoas and iliopsoas muscles Small extraperitoneal hemorrhage extending into pelvis Acute on chronic blood loss anemia Hematuria In setting of anticoagulation with Eliquis Eliquis held --last dose on 02/06/24 at 8:36AM Abdominal, groin pain secondary to hemorrhage History of fall prior to admission per patient Initial imaging studies (CTs) were negative for hemorrhage --CT ABD on 02/08/24:Large left retroperitoneal/infrarenal hematoma, measuring 13.6 x 11.9 x 6.9 cm. Moderate associated acute intramuscular hemorrhage within the left psoas and iliopsoas muscles. Small amount of extraperitoneal hemorrhage extending into the pelvis. -- Avoid any anticoagulation for now --S/P 4 units PRBCs Hematuria resolved Surgery, urology recommendations noted Previous Provider had discussed with Dr. Ly: on 02/07/2024 and 02/08/2024. Given last dose of Eliquis on 02/05, no indication for Kcentra currently If any signs of active bleed, plan to transfer to tertiary care facility for possible IR intervention FOBT + GI eval noted Hb remains stable Diarrhea Stool for C. 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--POA Likely ATN, prerenal due to blood loss Cr peaked at 2.96 Cr:1.41 today Monitor renal function Avoid nephrotoxic agents as able Off IVF Nephro has resumed po lasix daily Hematuria in setting of Anticoagulation (Eliquis) use H/O obstructive uropathy S/P left ureteral stent placement H/O nephrolithiasis UTI--POA Urine culture grew Katheryn CT abdomen today showed stent in appropriate position Appreciate Urology Input No plan for intervention by urology currently Completed Diflucan course Held Eliquis due to hematuria/hemorrhage Needs follow-up with urology on discharge Added Flomax, Ditropan and Pyridium as needed Fungal infection In skin folds and groin region on miconazole cream L1 compression fracture--POA Bed to chair transfers as tolerated Not a candidate for surgery per Ortho Initiate ambulation with walker as tolerated Appreciate orthopedics input Continue PT/OT Continue to encourage activity CM working on placement Chronic heart failure with preserved ejection fraction Diuretics was initially held due to FLETCHER Has been resumed by Nephrology. On lasix po Monitor for volume overload A-fib H/O Tachybradycardia syndrome refused pacemaker in the past Continue metoprolol and digoxin On Eliquis for anticoagulation--held due hematuria/Retroperitoneal bleed Hypertension Continue metoprolol Torsemide--held due to FLETCHER Monitor BP Hyperlipidemia Resume statin as able Morbid obesity Bariatric bed Needs counseling BMI 64.6 COVID-19 Initially diagnosed in December 04 Possible old infection versus new Currently asymptomatic Hypothyroidism Continue levothyroxine DVT Px: On Eliquis--Held SCDs for now CODE STATUS Full code Disposition Case management to help with discharge planning I spent a total of 45 minutes coordinating, documenting and providing care for this patient excluding time spent in performance of separately billed services Admission and Anticipated Discharge Date Admission Date: January 30, 2024 Subjective Patient seen and examined. Reports generalized weakness. She is worried about her functional status/activity level Physical Exam Constitutional: + well hydrated and + morbidly obese; no acute distress Eyes: PERRL, conjunctivae normal, anicteric sclerae ENMT: external ear and nose normal, oropharynx normal Respiratory: normal respiratory effort; no respiratory distress Decreased breath sounds likely due to body habitus Cardiovascular: Rate/Rhythm: regular rate and regular rhythm S1 S2 Gastrointestinal (Abdomen): normal bowel sounds, soft, nontender, no hepatosplenomegaly Neurologic: PERRL, EOMI, accommodation nl, no face palsy, no dysarthria Psychiatric: A+Ox3, euthymic affect Results & Data Results & Data Vital Signs (Past 12 Hours) Vital Signs Temp Pulse Resp BP Pulse Ox O2 Del Method O2 Flow Rate 02/12/24 14:35 Nasal Cannula 2 02/12/24 11:30 36.6 C 62 19 136/64 95 Room Air 02/12/24 07:33 36.7 C 64 18 131/65 92 Room Air Laboratory Results Abnormal lab results 02/12/24 Range/Units 07:52 RBC 2.86 L (4.20-5.40) M/uL Hgb 7.8 L (12.0-16.0) g/dl Hct 25.5 L (37.0-47.0) % MCHC 30.6 L (32.0-36.0) g/dL RDW Std Deviation 60.1 H (36.4-46.3) fL RDW Coeff of Johnny 19.2 H (11.5-14.5) % MPV 9.1 L (9.4-12.4) fL Potassium 3.4 L (3.5-5.1) mmol/L BUN 30 H (6-23) mg/dl Creatinine 1.41 H (0.6-1.2) mg/dl BUN/Creatinine Ratio 21.3 H (10-20) Calcium 7.5 L (8.6-10.3) mg/dl
[2024-02-12] MEDS ORDERED: MICONAZOLE NITRATE POWDER 85 GM EXT PRN (16:37)
[2024-02-13] MEDS: MICONAZOLE NITRATE POWDER 85 GM EXT SCH (02:35)
[2024-02-13 06:38] LABS: Hematocrit (blood only) 24.7 % (37.0-47.0); Hemoglobin 7.8 g/dl (12.0-16.0); Mean Corpuscular Hemoglobin 27.5 pg (25.0-34.0); Mean Corpuscular Hgb Conc 31.6 g/dL (32.0-36.0); Mean Platelet Volume 9.2 fL (9.4-12.4); Platelet Count 292 K/uL (130-400); RDW Coefficient of Variation 19.1 % (11.5-14.5); RDW Standard Deviation 58.7 fL (36.4-46.3); Red Blood Count 2.84 M/uL (4.20-5.40); White Blood Count 8.62 K/ul (4.8-10.8)
[2024-02-13 07:03] LABS: Calcium 7.4 mg/dl (8.6-10.3); Creatinine Clr Calc Pharmacy 59.9 ml/min; Est GFR (African American) 42.8 ml/min; Magnesium 1.8 mg/dl (1.7-2.4); Phosphorus 2.8 mg/dl (2.5-4.9); Potassium 3.6 mmol/L (3.5-5.1)
--- NOTE | 2024-02-13 10:57 | Hospitalist Progress Note ---
Date of Service February 13, 2024 Assessment & Plan (1) Cellulitis: Plan: 63-year-old female with past medical significant for paroxysmal atrial fibrillation anticoagulated on Eliquis, tachybradycardia syndrome, HTN, HLD, hypothyroidism, obesity, kidney stones, neuropathy ,history of depression ,morbid obesity who was recently in the hospital for acute on chronic heart failure with preserved ejection fraction was aggressively diuresed, also had episode of rapid A-fib and FLETCHER and treated for UTI and discharged to rehab and patient was discharged home but comes back with weakness and ambulatory dysfunction. Patient says after going home, she could not able to walk and she was brought to the hospital. Patient also had obstructive uropathy and s/p stent placement in October 2023. Supposed to follow with urology. She also had first diagnosed with COVID on May 04, 2023. COVID still positive on admission. Cellulitis Involving lower extremities and panniculitis and also left lateral thigh and hip Blood cultures: Negative to date Nasal MRSA:Negative Leukocytosis resolved Cellulitis improved Completed antibiotics Retroperitoneal hematoma Acute intramuscular hemorrhage of left psoas and iliopsoas muscles Small extraperitoneal hemorrhage extending into pelvis Acute on chronic blood loss anemia Hematuria In setting of anticoagulation with Eliquis Eliquis held --last dose on 02/06/24 at 8:36AM Abdominal, groin pain secondary to hemorrhage History of fall prior to admission per patient Initial imaging studies (CTs) were negative for hemorrhage --CT ABD on 02/08/24:Large left retroperitoneal/infrarenal hematoma, measuring 13.6 x 11.9 x 6.9 cm. Moderate associated acute intramuscular hemorrhage within the left psoas and iliopsoas muscles. Small amount of extraperitoneal hemorrhage extending into the pelvis. -- Avoid any anticoagulation for now --S/P 4 units PRBCs Hematuria resolved Surgery, urology recommendations noted Previous Provider had discussed with Dr. Ly: on 02/07/2024 and 02/08/2024. Given last dose of Eliquis on 02/05, no indication for Kcentra currently If any signs of active bleed, plan to transfer to tertiary care facility for possible IR intervention FOBT + GI eval noted Hb remains stable in 7s Diarrhea Stool for C. 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--POA Likely ATN, prerenal due to blood loss Cr peaked at 2.96 Cr:1.5 today Monitor renal function Avoid nephrotoxic agents as able Off IVF Nephro has resumed po lasix daily Hematuria in setting of Anticoagulation (Eliquis) use H/O obstructive uropathy S/P left ureteral stent placement H/O nephrolithiasis UTI--POA Urine culture grew Katheryn CT abdomen today showed stent in appropriate position Appreciate Urology Input No plan for intervention by urology currently Completed Diflucan course Held Eliquis due to hematuria/hemorrhage Needs follow-up with urology on discharge Added Flomax, Ditropan and Pyridium as needed Fungal infection In skin folds and groin region on miconazole cream L1 compression fracture--POA Bed to chair transfers as tolerated Not a candidate for surgery per Ortho Initiate ambulation with walker as tolerated Appreciate orthopedics input Continue PT/OT Continue to encourage activity CM working on placement Chronic heart failure with preserved ejection fraction Diuretics was initially held due to FLETCHER Has been resumed by Nephrology. On lasix po Monitor for volume overload A-fib H/O Tachybradycardia syndrome refused pacemaker in the past Continue metoprolol and digoxin On Eliquis for anticoagulation--held due hematuria/Retroperitoneal bleed Hypertension Continue metoprolol Monitor BP Hyperlipidemia Resume statin as able Morbid obesity Bariatric bed Needs counseling BMI 64.6 COVID-19 Initially diagnosed in December 04 Possible old infection versus new Currently asymptomatic Hypothyroidism Continue levothyroxine Wound care consult DVT Px: On Eliquis--Held SCDs for now CODE STATUS Full code Disposition Case management to help with discharge planning I spent a total of 40 minutes coordinating, documenting and providing care for this patient excluding time spent in performance of separately billed services Admission and Anticipated Discharge Date Admission Date: January 30, 2024 Subjective Patient seen and examined Reports weakness. Physical Exam Constitutional: + well hydrated and + morbidly obese; no acute distress Eyes: PERRL, conjunctivae normal, anicteric sclerae ENMT: external ear and nose normal, oropharynx normal Respiratory: normal respiratory effort; no respiratory distress Diminished breath sounds Cardiovascular: Rate/Rhythm: regular rate and regular rhythm S1 S2 Gastrointestinal (Abdomen): normal bowel sounds, soft, nontender, no hepatosplenomegaly Musculoskeletal: + pedal edema Skin: Ulcers on left buttock Neurologic: PERRL, EOMI, accommodation nl, no face palsy, no dysarthria Psychiatric: A+Ox3, euthymic affect Results & Data Results & Data Vital Signs (Past 12 Hours) Vital Signs Temp Pulse Resp BP BP Pulse Ox O2 Del Method 02/13/24 07:47 36.8 C 64 19 146/66 H 93 Room Air 02/13/24 03:19 36.9 C 70 18 97/61 L 91 Room Air 02/12/24 23:00 37.1 C 69 18 121/55 L 95 Room Air Laboratory Results Abnormal lab results 02/13/24 Range/Units 05:54 RBC 2.84 L (4.20-5.40) M/uL Hgb 7.8 L (12.0-16.0) g/dl Hct 24.7 L (37.0-47.0) % MCHC 31.6 L (32.0-36.0) g/dL RDW Std Deviation 58.7 H (36.4-46.3) fL RDW Coeff of Johnny 19.1 H (11.5-14.5) % MPV 9.2 L (9.4-12.4) fL BUN 30 H (6-23) mg/dl Creatinine 1.50 H (0.6-1.2) mg/dl Calcium 7.4 L (8.6-10.3) mg/dl
[2024-02-14 07:02] LABS: Hematocrit (blood only) 24.6 % (37.0-47.0); Hemoglobin 7.6 g/dl (12.0-16.0); Mean Corpuscular Hemoglobin 27.3 pg (25.0-34.0); Mean Corpuscular Hgb Conc 30.9 g/dL (32.0-36.0); Mean Corpuscular Volume 88.5 fL (80.0-100.0); Mean Platelet Volume 9.6 fL (9.4-12.4); Platelet Count 288 K/uL (130-400); RDW Coefficient of Variation 19.1 % (11.5-14.5); RDW Standard Deviation 61.5 fL (36.4-46.3); Red Blood Count 2.78 M/uL (4.20-5.40); White Blood Count 8.09 K/ul (4.8-10.8)
[2024-02-14 07:30] LABS: BUN Creatinine Ratio 19.1 (10-20); Calcium 7.3 mg/dl (8.6-10.3); Creatinine Clr Calc Pharmacy 59.3 ml/min; Est GFR (African American) 42.1 ml/min; Est GFR (Non-African American) 36.4 ml/min; Potassium 3.8 mmol/L (3.5-5.1)
--- NOTE | 2024-02-14 10:13 | Nephrology Progress Note ---
Date of Service February 14, 2024 Assessment & Plan Admission and Anticipated Discharge Date Admission Date: January 30, 2024 Subjective Assessment & Plan (1) Acute kidney injury superimposed on CKD: Plan: Waxing and waning Creat in the recent past. Creatinine today 1.5 which is within baseline stable. FLETCHER was from [facility] in setting of acute blood loss anemia. Daily labs and I and O charting. Dropping urine last few days. only 650 ml yesterday. raise lasix to 80 bid and raise kcl to 30 tid. hard to assess true fluid status. Monitor hemoglobin and transfuse as needed. (2) Ureteral stent present: Plan: reviewed urology note. No intervention planned for now (3) Nephrolithiasis: (4) Cellulitis: Plan: on Abx. make sure to Give least nephrotoxic abx and check levels when needed. Subjective Seen for acute kidney injury. No shortness of breath or leg pain. c/o Pain. urine only 650 ml. Review of Systems Review of Systems: All other systems were reviewed and negative except as noted in HPI Physical Exam Physical Exam: General exam: Appears comfortable, no acute distress HEENT: Pupils are equal and reactive to light Neck: No JVD, neck is supple trachea is midline Respiratory system: Clear breath sounds bilaterally. Gastrointestinal: Abdomen is soft, non distended, non tender, bowel sounds are present CVS: Regular rate and rhythm. No murmurs, rubs or gallops Musculoskeletal: No joint or muscle tenderness Extremities: Non tender, no edema, peripheral pulses are present Neuro: Oriented, no tremors, no focal neurological deficits Skin: No rashes Results & Data Vital Signs (Past 12 Hours) Vital Signs Temp Pulse Resp BP BP Pulse Ox O2 Del Method 02/14/24 08:20 Nasal Cannula 02/14/24 07:38 36.8 C 64 19 134/63 94 Room Air 02/14/24 03:34 36.7 C 63 18 121/69 94 Room Air 02/13/24 22:40 36.6 C 60 18 116/71 94 Room Air O2 Flow Rate 02/14/24 08:20 2 02/14/24 07:38 02/14/24 03:34 02/13/24 22:40
--- NOTE | 2024-02-14 12:54 | Hospitalist Progress Note ---
Date of Service February 14, 2024 Assessment & Plan (1) Cellulitis: Plan: 63-year-old female with past medical significant for paroxysmal atrial fibrillation anticoagulated on Eliquis, tachybradycardia syndrome, HTN, HLD, hypothyroidism, obesity, kidney stones, neuropathy ,history of depression ,morbid obesity who was recently in the hospital for acute on chronic heart failure with preserved ejection fraction was aggressively diuresed, also had episode of rapid A-fib and FLETCHER and treated for UTI and discharged to rehab and patient was discharged home but comes back with weakness and ambulatory dysfunction. Patient says after going home, she could not able to walk and she was brought to the hospital. Patient also had obstructive uropathy and s/p stent placement in October 2023. Supposed to follow with urology. She also had first diagnosed with COVID on May 04, 2023. COVID still positive on admission. Cellulitis Involving lower extremities and panniculitis and also left lateral thigh and hip Blood cultures: Negative to date Nasal MRSA:Negative Leukocytosis resolved Cellulitis improved Completed antibiotics Retroperitoneal hematoma Acute intramuscular hemorrhage of left psoas and iliopsoas muscles Small extraperitoneal hemorrhage extending into pelvis Acute on chronic blood loss anemia Hematuria In setting of anticoagulation with Eliquis Eliquis held --last dose on 02/06/24 at 8:36AM Abdominal, groin pain secondary to hemorrhage History of fall prior to admission per patient Initial imaging studies (CTs) were negative for hemorrhage --CT ABD on 02/08/24:Large left retroperitoneal/infrarenal hematoma, measuring 13.6 x 11.9 x 6.9 cm. Moderate associated acute intramuscular hemorrhage within the left psoas and iliopsoas muscles. Small amount of extraperitoneal hemorrhage extending into the pelvis. -- Avoid any anticoagulation for now --S/P 4 units PRBCs Hematuria resolved Surgery, urology recommendations noted Previous Provider had discussed with Dr. Ly: on 02/07/2024 and 02/08/2024. Given last dose of Eliquis on 02/05, no indication for Kcentra currently If any signs of active bleed, plan to transfer to tertiary care facility for possible IR intervention FOBT + GI eval noted Hb remains stable in 7s Diarrhea Stool for C. 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--POA Likely ATN, prerenal due to blood loss Cr peaked at 2.96 Cr:1.52 today Monitor renal function Avoid nephrotoxic agents as able Nephro increased lasix po to 80mg BID and potassium to 30mEq TID Monitor UO Hematuria in setting of Anticoagulation (Eliquis) use H/O obstructive uropathy S/P left ureteral stent placement H/O nephrolithiasis UTI--POA Urine culture grew Katheryn CT abdomen today showed stent in appropriate position Appreciate Urology Input No plan for intervention by urology currently Completed Diflucan course Held Eliquis due to hematuria/hemorrhage Needs follow-up with urology on discharge Added Flomax, Ditropan and Pyridium as needed Fungal infection In skin folds and groin region on miconazole topical L1 compression fracture--POA Bed to chair transfers as tolerated Not a candidate for surgery per Ortho Initiate ambulation with walker as tolerated Appreciate orthopedics input Continue PT/OT Continue to encourage activity CM working on placement Chronic heart failure with preserved ejection fraction Diuretics was initially held due to FLETCHER Has been resumed by Nephrology. On lasix po Monitor for volume overload A-fib H/O Tachybradycardia syndrome refused pacemaker in the past Continue metoprolol and digoxin On Eliquis for anticoagulation--held due hematuria/Retroperitoneal bleed Hypertension Continue metoprolol Monitor BP Hyperlipidemia Resume statin as able Morbid obesity Bariatric bed Needs counseling BMI 64 COVID-19 Initially diagnosed in December 04 Possible old infection versus new Currently asymptomatic Hypothyroidism Continue levothyroxine Wound care consult DVT Px: On Eliquis--Held SCDs for now CODE STATUS Full code Disposition Case management working on dispo Patient counseled on need to increase activity I spent a total of 40 minutes coordinating, documenting and providing care for this patient excluding time spent in performance of separately billed services Admission and Anticipated Discharge Date Admission Date: January 30, 2024 Subjective Patient seen and examined. Reports generalized weakness. Reports some discomfort in the lower legs, not pain No other new complaints. Physical Exam Constitutional: + well hydrated and + morbidly obese; no acute distress Eyes: PERRL, conjunctivae normal, anicteric sclerae ENMT: external ear and nose normal, oropharynx normal Respiratory: normal respiratory effort; no respiratory distress Diminished breath sounds (likely due to body habitus) Cardiovascular: Rate/Rhythm: regular rate and regular rhythm S1 S2 Gastrointestinal (Abdomen): normal bowel sounds, soft, nontender, no hepatosplenomegaly Musculoskeletal: +Lower extremity edema Neurologic: PERRL, EOMI, accommodation nl, no face palsy, no dysarthria Psychiatric: A+Ox3, euthymic affect Results & Data Results & Data Vital Signs (Past 12 Hours) Vital Signs Temp Pulse Resp BP BP Pulse Ox O2 Del Method 02/14/24 10:54 36.8 C 61 18 120/63 94 Room Air 02/14/24 08:20 Nasal Cannula 02/14/24 07:38 36.8 C 64 19 134/63 94 Room Air 02/14/24 03:34 36.7 C 63 18 121/69 94 Room Air O2 Flow Rate 02/14/24 10:54 02/14/24 08:20 2 02/14/24 07:38 02/14/24 03:34 Laboratory Results Abnormal lab results 02/14/24 Range/Units 05:51 RBC 2.78 L (4.20-5.40) M/uL Hgb 7.6 L (12.0-16.0) g/dl Hct 24.6 L (37.0-47.0) % MCHC 30.9 L (32.0-36.0) g/dL RDW Std Deviation 61.5 H (36.4-46.3) fL RDW Coeff of Johnny 19.1 H (11.5-14.5) % BUN 29 H (6-23) mg/dl Creatinine 1.52 H (0.6-1.2) mg/dl Calcium 7.3 L (8.6-10.3) mg/dl
[2024-02-14] MEDS: POTASSIUM CHLORIDE 10 MEQ TABCR PO SCH (13:14)
[2024-02-14] MEDS: FUROSEMIDE 80 MG TAB PO SCH (20:39)
[2024-02-15 09:15] LABS: Hemoglobin 8.2 g/dl (12.0-16.0); Mean Corpuscular Hemoglobin 27.3 pg (25.0-34.0); Mean Corpuscular Hgb Conc 30.4 g/dL (32.0-36.0); Mean Platelet Volume 9.3 fL (9.4-12.4); Platelet Count 265 K/uL (130-400); RDW Coefficient of Variation 19.7 % (11.5-14.5)
[2024-02-15 09:31] LABS: BUN Creatinine Ratio 23.1 (10-20); Calcium 7.4 mg/dl (8.6-10.3); Creatinine Clr Calc Pharmacy 69.6 ml/min; Est GFR (African American) 50.9 ml/min; Est GFR (Non-African American) 43.9 ml/min; Potassium 3.8 mmol/L (3.5-5.1)
--- NOTE | 2024-02-15 17:17 | Discharge Summary ---
Date of Service February 15, 2024 Admission HPI Per Admitting Provider 63-year-old female with past medical history significant for paroxysmal atrial fibrillation anticoagulated on Eliquis, tachybradycardia syndrome, HTN, HLD, hypothyroidism, obesity, kidney stones, neuropathy, history of depression ,morbid obesity who was recently in the hospital for acute on chronic heart failure with preserved ejection fraction was aggressively diuresed, also had episode of rapid A-fib and FLETCHER and treated for UTI and discharged to rehab and patient was discharged home today comes back with weakness and ambulatory dysfunction. Patient says after going home today she could not able to walk and she was brought to the hospital. Feeling weak in the legs. Has some headache. Earlier had some nausea that resolved. Has some abdominal spasms. Danielle is draining dark urine. Normal bowel movements. Denies chest pain or shortness of breath. Currently no headache. Vision is blurry. No earache or runny nose currently. No sore throat. Appetite is down as per patient. Patient also had obstructive uropathy and s/p stent placement in October 2023. Supposed to follow with urology. She also had first diagnosed with COVID on May 04, 2023. Currently COVID still positive. Past medical history. As mentioned above Past surgical history. Colonoscopy. Cystoscopy. Bilateral repair of hip fractures. Social history. No smoking. Alcohol rare. No drug use. Family history. Mother had cervical cancer. Stroke. Father had diabetes. Hypertension. Sister has arthritis. Admission Exam Per Admitting Provider General- Not in distress. Head- atraumatic Eyes- PERRL. ENT- oropharynx clear Neck- supple, no JVD. Lungs- clear to auscultation no wheezing or crackles Heart- regular rhythm; no murmur, no gallop. Abdomen- normal bowel sounds, soft, nontender, no distension. Extremities- b/l lower extremity edema seen. Mild erythema seen. Neuro- alert, oriented PERRL, no facial palsy; no dysarthria; obeys simple commands Skin- erythema in abdominal folds and groin region and skin folds in legs Principal Diagnosis Acute on chronic anemia Retroperitoneal bleed Cellulitis Acute on chronic kidney disease L1 Compression fracture Discharge Exam Constitutional + well hydrated and + morbidly obese; no acute distress Eyes PERRL, conjunctivae normal, anicteric sclerae ENMT external ear and nose normal, oropharynx normal Respiratory normal respiratory effort; no respiratory distress Diminished breath sounds (likely due to body habitus), on room air Cardiovascular Rate/Rhythm: regular rate and regular rhythm S1 S2 Gastrointestinal (Abdomen) normal bowel sounds, soft, nontender, no hepatosplenomegaly Musculoskeletal +LE edema Neurologic PERRL, EOMI, accommodation nl, no face palsy, no dysarthria Psychiatric A+Ox3, euthymic affect Discharge Data Allergies Allergy/AdvReac Type Severity Reaction Status Date / Time lisinopril Allergy Intermediate Cough Verified 12/05/23 12:35 mineral oil Allergy rash to Verified 12/13/23 15:13 "Baby Oil" (mineral oil/fragrance/vit E) nickel Allergy itching Verified 12/24/22 08:43 simvastatin AdvReac Unknown Muscle Pain Verified 12/05/23 12:35 Consultations 01/29/24 23:39 ED Decision to Admit Stat 02/01/24 17:58 Consult Orthopedic Spine Surgery Routine 02/02/24 14:29 Consult Urology Routine 02/06/24 11:00 Consult General Surgery Routine 02/07/24 08:28 Consult Nephrology Routine 02/10/24 07:00 Consult Gastroenterology Routine Ordered Studies 01/29/24 23:02 CT abd pelvis wo con Stat 02/02/24 06:09 CT lumbar spine wo con Routine 02/05/24 10:57 CT Abd and Pelvis [CT abd pelvis wo con] Urgent 02/06/24 11:00 CT head/brain wo con Urgent 02/08/24 09:38 CT Abd and Pelvis [CT abd pelvis wo con] Urgent CT chest diagnostic wo con Urgent Hospital Course (1) Cellulitis: 63-year-old female with past medical significant for paroxysmal atrial fibri llation anticoagulated on Eliquis, tachybradycardia syndrome, HTN, HLD, hypothyroidism, obesity, kidney stones, neuropathy ,history of depression ,morbid obesity who was recently in the hospital for acute on chronic heart failure with preserved ejection fraction was aggressively diuresed, also had episode of rapid A-fib and FLETCHER and treated for UTI and discharged to rehab and patient was discharged home but comes back with weakness and ambulatory dysfunction. Patient reported after going home, she could not able to walk and she was brought to the hospital. Patient also had obstructive uropathy and s/p stent placement in October 2023. Supposed to follow with urology. She also had first diagnosed with COVID on May 04, 2023. COVID still positive on admission. Cellulitis Involving lower extremities and panniculitis and also left lateral thigh and hip Blood cultures: Negative to date Nasal MRSA:Negative Leukocytosis resolved Cellulitis improved Completed antibiotics Retroperitoneal hematoma Acute intramuscular hemorrhage of left psoas and iliopsoas muscles Small extraperitoneal hemorrhage extending into pelvis Acute on chronic blood loss anemia Hematuria In setting of anticoagulation with Eliquis Eliquis held --last dose on 02/06/24 at 8:36AM Abdominal, groin pain secondary to hemorrhage History of fall prior to admission per patient Initial imaging studies (CTs) were negative for hemorrhage --CT ABD on 02/08/24:Large left retroperitoneal/infrarenal hematoma, measuring 13.6 x 11.9 x 6.9 cm. Moderate associated acute intramuscular hemorrhage within the left psoas and iliopsoas muscles. Small amount of extraperitoneal hemorrhage extending into the pelvis. -- Avoid any anticoagulation for now --S/P 4 units PRBCs Hematuria resolved Was evaluated by Surgery inpatient Was managed conservatively. Hb remains stable over the past 6 days. Hb is 8.2 today Diarrhea Stool for C. 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 Patient needs to follow up with Urology outpatient for stent/stone management Completed Diflucan course Held Eliquis due to hematuria/hemorrhage Fungal infection In skin folds and groin region on miconazole topical L1 compression fracture--POA Bed to chair transfers as tolerated Not a candidate for surgery per Ortho spine Initiate ambulation with walker as tolerated Continue [facility]OT at [facility] Continue alendronate Discharged on Vit D Chronic heart failure with preserved ejection fraction Diuretics adjusted by Yeast Maker as above A-fib H/O Tachybradycardia syndrome Refused pacemaker in the past Continue metoprolol and digoxin Eliquis stopped for now inview of above. Patient can follow up with Cardiology outpatient about when its safe to resume Hypertension Continue metoprolol Monitor BP Hyperlipidemia On statin Morbid obesity Counseled extensively regarding need for weight loss BMI 65 COVID-19 Initially diagnosed in December 04 Possible old infection versus new Currently asymptomatic Hypothyroidism Continue levothyroxine Total Time Total Time Spent Total Time Spent (In Minutes): 40 Total Time Includes: Examination of the Patient, Discharge Planning and Medication Reconciliation Discharge Plan Discharge Items Patient Disposition: Transfer Inpatient Rehab Fac Reason For Visit: WEAKNESS, CELLULITIS Discharge Diagnosis: Acute on chronic anemia Retroperitoneal bleed Cellulitis Acute on chronic kidney disease L1 Compression fracture Activity: Resume your previous activity Non-emergency contact: Primary Care Provider and Vehicle Return Associate Call non-emergency contact if: you have any medication questions and your symptoms worsen Follow-up/Referrals: Rik Alan, [Primary Care Provider] - Diet: Heart Healthy Addtl Attending Provider Instructions: Ms Cox You came to the hospital complaining of weakness and difficulty ambulating. You were evaluated and managed for the above listed diagnoses Your blood thinner was stopped due to retroperitoneal bleed You required 4 units of blood. Your blood count has stabilized since. Please follow up with your Vehicle Return Associate about when to safely resume your blood thinner. Your torsemide was changed to Furosemide 80mg twice a day and your potassium increased to 30mEq three times a day. Please refer to medication list for other medication changes. Please ensure follow up with Nephrology and your Family Doctor. Please ensure follow up outpatient with Urology for continued management of your ureteral stent and kidney stones You are being [facility] Pending Studies at Discharge: Yes Stand-Alone Forms: My [facility] Skilled Items Patient informed of condition?: Yes DNR: No Discharge Level of Care: Skilled Communicable Disease: No Discharge Prognosis: Stable Lines: None Urinary Catheter: No Medications and DC Order Prescriptions: New tamsulosin 0.4 mg Capsule 0.4 mg PO HS Qty: 30 0RF acetaminophen 325 mg Tablet 650 mg PO Q4H PRN (Reason: fever or pain) Qty: 60 0RF famotidine 20 mg Tablet 20 mg PO BID Qty: 60 0RF furosemide 80 mg Tablet 80 mg PO BID Qty: 60 0RF cholecalciferol (vitamin D3) [Vitamin D3] 25 mcg (1,000 unit) capsule 25 mcg PO DAILY Qty: 30 0RF Continued atorvastatin 40 mg tablet 40 mg PO DAILY 30 Days Qty: 30 0RF metoprolol succinate 50 mg Tablet Extended Release 24 Hr 100 mg PO BID 30 Days Qty: 120 0RF alendronate 70 mg tablet 70 mg PO WK 30 Days Qty: 4 0RF miconazole nitrate [Desenex] 2 % Powder 1 applic EXT BID PRN (Reason: fungal infection) 30 Days Qty: 85 0RF levothyroxine [Euthyrox] 100 mcg tablet 100 mcg PO QAM 30 Days Qty: 30 0RF ascorbic acid (vitamin C) [Vitamin C] 500 mg Tablet 500 mg PO QAM 30 Days Qty: 30 0RF benzonatate 100 mg capsule 100 mg PO TID PRN (Reason: cough) Qty: 20 0RF gabapentin 300 mg Capsule 300 mg PO HS 30 Days Qty: 30 0RF digoxin [Digitek] 125 mcg (0.125 mg) Tablet 0.125 mg PO MoWeFr@1600 30 Days Qty: 15 0RF diclofenac sodium [Voltaren Arthritis Pain] 1 % Gel 4 g EXT Q6H PRN (Reason: knee pain) 30 Days Qty: 100 0RF Changed docusate sodium 100 mg Capsule 100 mg PO BID PRN (Reason: Constipation) 30 Days Qty: 60 0RF potassium chloride 20 mEq tablet extended release 30 meq PO TID 30 Days Qty: 120 0RF Discontinued oxycodone-acetaminophen 10-325 mg Tablet 1 tab PO Q4H PRN (Reason: severe pain) Qty: 12 0RF hydroxyzine HCl 25 mg tablet 25 - 50 mg PO Q6H PRN (Reason: itching) Qty: 20 0RF Eliquis 5 mg Tablet 5 mg PO BID 30 Days Qty: 60 0RF torsemide 20 mg tablet 20 mg PO QAM cephalexin 500 mg capsule 500 mg PO TID Discharge Orders: Discharge Order (Routine); Ordered 02/15/24 Ordered By: Dagmar Soriano Admission Data Admit Date/Time: 01/30/24 01:26 Attending Provider: Dagmar Soriano I. Admit Provider: Jeronimo Sullivan Primary Care Provider: Rik Alan Other Providers: [facility],Home Healthcare; [facility],Referral Center; [facility]; Jeronimo Sullivan.; Rakesh Ferrer; Endy Delgadillo; Stephen Manjarrez; Frankie Salas; Jennifer Tucker; Arben Chowdhury; Payal Mahajan; Heidy Tate; Ruddy Contreras; Mirian Gutierrez; Daron Streeter; Hema Stevens; Abhijit Nassar; Arben Sanford; Adrian Daly; Joslyn Shook; Isaac Macias; Pasha Potter; Olga Ribeiro; Corin Perez; Kush Bernal Jr; Brendan Otero; Yung Leal; Cici Medina; Yaima Green; Miller Marie; Aimee Larios; Danilo Meng.; Ambar Marvin; aHiley Solano; Kit Neri; Juanjose Luo; Noemi Tobar.; Corin Shrestha; Shirley Watson; Malgorzata Lerner; Amrit Godoy; Loc Masterson; Tiny Shook; Dion Stoddard.; Edward,Kulwinder S; Gloria Mendez; Lisseth Conn.; Tyesha Guillaume.; Cici Reinoso; Tatiana Hayden; Sebastian Laura; Florentin Ulloa.; Angela Riggs; Amelie Betancourt Jr; Stef Lugo; [facility] Health[facility] beverly; Percy Lawson [facility]
--- NOTE | 2024-02-22 09:50 | Coding Query ---
CODING QUERY To promote full compliance with coding requirements relating to patient care, provider participation is requested in all cases of umbrella finisher uncertainty. Please assist us with the question(s) below: Coding Question(s): "In the setting of" indicates that the two conditions exist together, it does not indicate a [id number] relationship. Could you please clarify the meaning of the following documentation: "Hematuria in the setting of anticoagulation with Eliquis" "Retroperitonial hematoma, acute intramuscular hemorrhage of left psoas and iliopsoas muscles, small hextraperitonieal hemorrhage extending into pelvis: in the setting of anticoagulation with Eliquis" Physician's Response(s): Hematuria: ( ) Hematuria and anticoagulation treatment coexist (without [id number] relationship) ( ) Hematuria due to anticoagulation (with mvflp-pjw-[id number] relationship) (x ) Other, please specify: Hematuria likely due to anticoagulation Retroperitoneal hematoma and intramuscular hemorrhage: ( ) Hematoma/hemorrhage and anticoagulation treatment coexist (without tnhyd-[id number]-[id number] relationship) ( ) Hematoma/hemorrhage due to anticoagulation (with lrrrc-foo-[id number] relationship) (x ) Other, please specify: Retroperitoneal hematoma and intramuscular hemorrhage likely due to anticoagulation Thank you Cinthya Higuera Principal Diagnosis: "that condition established after study, to be chiefly responsible for occasioning the admission of the patient to the hospital for care." Co-Existing Principal Diagnosis: "when two or more diagnoses equally meet the criteria for principal diagnosis as determined by the circumstances of admission, diagnostic work up, and/or therapy provided, and the Alphabetic Index, Tabular List, or another coding guideline does not provide sequencing direction, any one of the diagnoses may be sequenced first." "When the physician has documented what appears to be a current diagnosis in the body of the record, but has not included the diagnosis in the final diagnostic statement, the physician should be asked whether the diagnosis should be added." (Source Coding [facility] 2 QTR90. p3-4) YONI
== END 2024-02-15 14:14 | DRG 602 ==
LOC: ED 20:22 → EDINP 01-30 01:26 → SUATTDRO 01-30 01:26 → 2N 01-31 02:07 → 2S 02-08 18:30

== ENCOUNTER 2024-02-29 13:29 | Inpatient (IN) ==
[2024-02-29] MEDS: ONDANSETRON INJ 2 MG/ML 2 ML VIAL IV STA (14:17)
[2024-02-29 14:28] LABS: Basophils # (auto) 0.04 K/uL (0.00-0.20); Basophils % (auto) 0.4 %; Eosinophils # (auto) 0.08 K/uL (0.00-0.50); Eosinophils % (auto) 0.8 %; Hematocrit (blood only) 30.7 % (37.0-47.0); Hemoglobin 9.6 g/dl (12.0-16.0); Immature Granulocytes # (auto) 0.11 K/uL (0.01-0.20); Immature Granulocytes % (auto) 1.1 %; Lymphocytes # (auto) 3.41 K/uL (1.20-3.40); Lymphocytes % (auto) 35.4 %; Mean Corpuscular Hemoglobin 27.9 pg (25.0-34.0); Mean Corpuscular Hgb Conc 31.3 g/dL (32.0-36.0); Mean Corpuscular Volume 89.2 fL (80.0-100.0); Mean Platelet Volume 9.3 fL (9.4-12.4); Monocytes # (auto) 0.98 K/uL (0.11-0.59); Monocytes % (auto) 10.2 %; Neutrophils # (auto) 5.02 K/uL (1.40-6.50); Neutrophils % (auto) 52.1 %; Platelet Count 249 K/uL (130-400); RDW Coefficient of Variation 19.8 % (11.5-14.5); RDW Standard Deviation 64.7 fL (36.4-46.3); Red Blood Count 3.44 M/uL (4.20-5.40); White Blood Count 9.64 K/ul (4.8-10.8)
[2024-02-29 14:38] LABS: INR 1.3 (0.9-1.1); Prothrombin Time 13.9 Seconds (9.0-12.0)
--- NOTE | 2024-02-29 14:52 | Emergency Department Note ---
Impression & Plan Generalized weakness, Obesity, Hypoxia, Elevated troponin, Abdominal pain, Retroperitoneal bleed, Nausea and vomiting, Acute UTI ED Provider Note Provider: Scott Paulson MD DATE OF SERVICE: 02/29/2024 CHIEF COMPLAINT: Difficulty breathing, vomiting HISTORY OF PRESENT ILLNESS: Patient is a 63-year-old female past medical history of atrial fibrillation previous on Eliquis but during recent hospitalization developed retroperitoneal bleeding and no longer on anticoagulation, hypertension, hypothyroidism, kidney stones, obesity, neuropathy presenting here from [facility] where she has been recuperating and rehabbing over the past 2 weeks after hospitalization here. No falls reported. Patient states worsening wound of her buttock as well as significant nausea or vomiting. Not able to really eat or drink anything after last several days. Patient and her boyfriend at bedside are quite concerned about worsening weakness and fatigue and request that she come to the hospital here today. They reports that they do not feel that she can be cared for at [facility]. Patient not normally on oxygen. No fevers clearly reported. Does report she also has some sores on her left lower leg. Has had diarrhea. PAST MEDICAL HISTORY: As noted above MEDICATIONS: Reviewed medication list from the facility SOCIAL HISTORY: Here with boyfriend, has been residing at [facility] PHYSICAL EXAM: GENERAL: alert and oriented in no acute distress on stretcher but fatigued in appearance holding emesis bag, boyfriend at bedside Head: normocephalic and atraumatic EYES: No injection, discharge or icterus. EOMI. NECK: Trachea midline. Supple. ENT: Mucous membranes pink and moist. Pharynx without erythema or exudate. LUNGS: Airway patent. No retractions. Breath sounds clear with good air entry bilaterally. HEART: Regular rate and rhythm. No chest wall tenderness ABDOMEN: Soft minimal diffuse tenderness. Obese. SKIN: Acyanotic, warm, dry. Grade 1-2 areas of skin breakdown on the bilateral mid buttock. EXTREMITIES: 2+ edema of the lower extremities. Approximately 3 x 8 cm area of contusion to the posterior left lower leg in the area of the Achilles without bleeding but tenderness. There is approximately 2 cm area of skin breakdown grade 2 to the left lateral heel. No crepitus. NEUROLOGICAL: No focal deficits. No aphasia. No facial droop or slurred speech. Normal strength and tone in the extremities. EK bpm. Normal sinus rhythm. No PVC or PAC. No acute ST segment elevation with some nonspecific T wave flattening. QTc 447. CONTINUOUS CARDIAC MONITORING: was ordered and showed a heart rate of 70s to 80s bpm in normal sinus rhythm Patient's laboratory studies and imaging reviewed. Differential includes Infection, gastrointestinal, pneumonia, dehydration, metabolic abnormality, hypo/hyperglycemia, electrolyte disturbance, anemia, hypoxia, cardiac sources, intracerebral event, toxicologic, neurologic, as well as other pathologies. IMPRESSION/MEDICAL DECISION MAKING: Given the extensive medical history and recent hospitalization course broad differential entertained. Mild oxygen requirement desatting into the high 80s on room air. Improved after increased to approximately 2 L of nasal cannula oxygen. Nausea and vomiting and given some Zofran. Reports of abdominal pain. History recently retroperitoneal hematoma. Will obtain CT scan here. Afebrile here. Blood work without significant leukocytosis. Stable to slightly improved anemia. Want to be cautious with fluid status given the edema that she has in her extremities. Lactate not elevated likely. Blood work here with improved anemia hemoglobin today of 9.6. No leukocytosis. No severe electrolyte abnormality or signs of renal dysfunction. Minimal hypomagnesemia of 1.5. CK not elevated. Digoxin nontoxic. Chest x-ray per radiology without acute process of the lungs noted. VBG without acidosis or hypercarbia. Troponin significantly elevated today at 673 compared to previous. Stool sample pending. Sacral ulcers and leg wound does not appear superinfected to me at this point. Patient unhappy with our side and given the troponin elevation which believe is more related to probably some chronic hypoxia she has been experiencing will bring into the hospital further evaluation. Lower suspicion again this represents PE and do not feel she be good anticoagulation candidate in any event given her recent RP hematoma requiring transfusion. Patient was ordered aspirin. Will defer heparin drip at this time given her recent retroperitoneal hematoma. Discussed with the hospitalist team. Believe her habitus is causing some of her respiratory issues and was possibly bit of fluid overload. Danielle catheter be placed. Will defer further management and possible diuresis to the inpatient team. Danielle catheter was placed to help with wound care regarding her decubitus ulcerations. From this while being admitted by the hospitalist urinalysis returned concerning for infection and the hospitalist team has ordered antibiotics. DIAGNOSIS: Elevated troponin, hypoxia, ambulatory dysfunction/weakness, nausea and vomiting, diarrhea, decubitus ulcers, UTI DISPOSITION: Hospitalist will evaluate Patient was agreeable with this plan. Critical Care I have personally spent 33 minutes of critical care time in the direct management of this patient. This includes bedside care, interpretation of diagnostic studies, and testing, discussion with consultants, patient, and family members, and other required patient management activities. These 33 minutes is in excess of all separately billable procedures. Past Med/Surg History Medical History Urolithiasis Morbid obesity with BMI of 60.0-69.9, adult Frequent urination at night Pre-diabetes Neuropathy Atrial fibrillation on Eliquis Cardiac murmur Follows with Dr. Olga Lidia BARRAZA (hyperlipidemia) Osteoporosis Hypothyroidism Tachycardia-bradycardia syndrome Hypertension Surgical History History of wisdom tooth extraction History of hip surgery BL Family History Other No family history of adverse response to anesthesia Social History Smoking Status: Never smoker Second Hand Exposure: No; Do You Dip or Chew Tobacco: No; Hx Alcohol Use: Yes Alcohol type: other Hx Substance Use: No Preferred Language: Cymro Communication Ability: Effective Visual Presentation Manager Required: No Beliefs That Will Affect Care: None Current Living Situation: Significant Other Current Living Situation Comment: Home with Fiancee How many Children do You have: 0 Feels Safe at Home: Yes Assistive Devices: Cane, Denture - Upper, Denture - Lower and Walker Allergies Allergies Allergy/AdvReac Type Severity Reaction Status Date / Time mineral oil Allergy Intermediate rash to Verified 02/29/24 15:46 "Baby Oil" (mineral oil/fragrance/vit E) nickel Allergy Intermediate itching Verified 02/29/24 15:46 lisinopril AdvReac Intermediate Cough Verified 02/29/24 15:46 simvastatin AdvReac Intermediate Muscle Pain Verified 02/29/24 15:46 Home Meds Home Medications Medication Instructions Recorded Confirmed acetaminophen 325 mg tablet 650 mg PO Q6H PRN fever or pain 02/29/24 02/29/24 ascorbic acid (vitamin C) 500 mg 500 mg PO DAILY 02/29/24 02/29/24 tablet (Vitamin C) citalopram 10 mg tablet (Celexa) 10 mg PO DAILY 02/29/24 02/29/24 diclofenac sodium 1 % topical gel 4 g EXT Q6H knee pain 02/29/24 02/29/24 (Voltaren Arthritis Pain) digoxin 125 mcg (0.125 mg) tablet 0.125 mg PO MOWEFR@0900 02/29/24 02/29/24 (Digitek) omeprazole 20 mg tablet,delayed 20 mg PO DAILY 02/29/24 02/29/24 release potassium chloride 10 mEq 10 meq PO TID 02/29/24 02/29/24 capsule,extended release potassium chloride 20 mEq 20 meq PO TID 02/29/24 02/29/24 tablet,extended release saliva substitute combo no.9 1 ea PO QID PRN Dry Mouth 02/29/24 02/29/24 (Biotene PBF mouthwash) Previous Rx's Medication Instructions Recorded alendronate 70 mg tablet 70 mg PO WK 30 days #4 tabs 02/15/24 atorvastatin 40 mg tablet 40 mg PO DAILY 30 days #30 tabs 02/15/24 cholecalciferol (vitamin D3) 25 25 mcg PO DAILY #30 caps 02/15/24 mcg (1,000 unit) capsule (Vitamin D3) famotidine 20 mg tablet 20 mg PO BID #60 tabs 02/15/24 furosemide 80 mg tablet 80 mg PO BID #60 tabs 02/15/24 gabapentin 300 mg capsule 300 mg PO HS 30 days #30 caps 02/15/24 levothyroxine 100 mcg tablet 100 mcg PO QAM 30 days #30 tabs 02/15/24 (Euthyrox) metoprolol succinate 50 mg 100 mg (2 x 50 mg) PO BID 30 days 02/15/24 tablet,extended release 24 hr #120 tabs tamsulosin 0.4 mg capsule 0.4 mg PO HS #30 caps 02/15/24 Results & Data (ED) Vital Signs Vital Signs - 24 hr 02/29/24 13:35 02/29/24 13:48 02/29/24 14:30 Temperature 36.5 C Temperature Source Oral Pulse Rate 83 82 79 Pulse Rate from SpO2 Sensor Respiratory Rate 18 22 Respiratory Effort / Characteristics Non-Labored Spontaneous Respiratory Depth Normal Respiratory Pattern Regular Blood Pressure 125/54 L 155/65 H Blood Pressure Mean 77 95 Blood Pressure Position Lying Pulse Oximetry 91 92 Oxygen Delivery Method Nasal Cannula Nasal Cannula Oxygen Flow Rate 2 2 Sepsis Recent Fever Within 48 Hours No Sepsis New/Unexplained Change in Mental Status N/A Sepsis Action Taken by Nursing No Action Required 02/29/24 15:30 02/29/24 16:01 02/29/24 16:01 Temperature Temperature Source Pulse Rate 76 77 Pulse Rate from SpO2 Sensor 76 77 Respiratory Rate 16 21 Respiratory Effort / Characteristics Respiratory Depth Respiratory Pattern Blood Pressure 120/68 115/35 L Blood Pressure Mean 85 52 Blood Pressure Position Pulse Oximetry 99 96 Oxygen Delivery Method Oxygen Flow Rate Sepsis Recent Fever Within 48 Hours Sepsis New/Unexplained Change in Mental Status Sepsis Action Taken by Nursing 02/29/24 16:30 02/29/24 16:31 02/29/24 16:31 Temperature Temperature Source Pulse Rate 77 78 Pulse Rate from SpO2 Sensor 79 78 Respiratory Rate 22 26 H Respiratory Effort / Characteristics Respiratory Depth Respiratory Pattern Blood Pressure 104/51 L Blood Pressure Mean 82 Blood Pressure Position Pulse Oximetry 96 96 Oxygen Delivery Method Oxygen Flow Rate Sepsis Recent Fever Within 48 Hours Sepsis New/Unexplained Change in Mental Status Sepsis Action Taken by Nursing Laboratory Data 02/29/24 13:49 02/29/24 13:49 Lab Results 02/29/24 02/29/24 02/29/24 Range/Units 13:49 14:18 14:27 WBC 9.64 (4.8-10.8) K/ul RBC 3.44 L (4.20-5.40) M/uL Hgb 9.6 L (12.0-16.0) g/dl Hct 30.7 L (37.0-47.0) % MCV 89.2 (80.0-100.0) fL MCH 27.9 (25.0-34.0) pg MCHC 31.3 L (32.0-36.0) g/dL RDW Std Deviation 64.7 H (36.4-46.3) fL RDW Coeff of Johnny 19.8 H (11.5-14.5) % Plt Count 249 (130-400) K/uL MPV 9.3 L (9.4-12.4) fL Immature Gran % (Auto) 1.1 % Neut % (Auto) 52.1 % Lymph % (Auto) 35.4 % Harding % (Auto) 10.2 % Eos % (Auto) 0.8 % Baso % (Auto) 0.4 % Neut # (Auto) 5.02 (1.40-6.50) K/uL Lymph # (Auto) 3.41 H (1.20-3.40) K/uL Harding # (Auto) 0.98 H (0.11-0.59) K/uL Eos # (Auto) 0.08 (0.00-0.50) K/uL Baso # (Auto) 0.04 (0.00-0.20) K/uL Immature Gran # (Auto) 0.11 (0.01-0.20) K/uL PT 13.9 H (9.0-12.0) Seconds INR 1.3 H (0.9-1.1) VBG pH (7.36-7.41) VBG pCO2 (38-50) mmHg VBG pO2 mmHg VBG HCO3 mmol/L VBG O2 Saturation % VBG Base Excess mEq/L Sodium 139 (136-145) mmol/L Potassium 4.1 (3.5-5.1) mmol/L Chloride 102 (98-107) mmol/L Carbon Dioxide 27 (21-32) mmol/L Anion Gap 10 (3-11) BUN 22 (6-23) mg/dl Creatinine 1.13 (0.6-1.2) mg/dl Est Cr Clr Drug Dosing 79.1 ml/min Est GFR ( Amer) 60.3 ml/min Est GFR (Non-Af Amer) 52.0 ml/min BUN/Creatinine Ratio 19.5 (10-20) Glucose 104 H (70-99(Fasting)) mg/dl Lactate 2.0 (0.4-2.0) mmol/L Calcium 6.8 L (8.6-10.3) mg/dl Magnesium 1.5 L (1.7-2.4) mg/dl Total Bilirubin 1.4 H (0.2-1.0) mg/dl AST 30 (13-39) U/L ALT 13 (7-52) U/L Alkaline Phosphatase 77 (34-104) U/L Total Creatine Kinase 154 (26-192) U/L Troponin I High Sens 672.3 H* (0-14) pg/ml B-Natriuretic Peptide 734 H (0-100) pg/ml Total Protein 5.8 L (6.0-8.3) gm/dl Albumin 2.7 L (3.4-5.0) gm/dl Globulin 3.1 (2.5-4.0) gm/dl Albumin/Globulin Ratio 0.9 (0.9-2) Lipase 48 (11-82) U/L Procalcitonin 0.04 (0-0.5) ng/ml TSH 4.819 H (0.300-4.500) uIu/ml Free T4 1.64 H (0.61-1.60) ng/dl Digoxin 0.7 L (0.8-2.0) ng/ml Adenovirus (PCR) Not Detected (NotDetected) B. pertussis DNA (PCR) Not Detected (NotDetected) B.parapertussis DNA PCR Not Detected (NotDetected) C. pneumoniae DNA (PCR) Not Detected (NotDetected) Coronavirus OC43 (PCR) Not Detected (NotDetected) Coronavirus HKU1 (PCR) Not Detected (NotDetected) Coronavirus 229E (PCR) Not Detected (NotDetected) SARS-CoV-2 (PCR) Not Detected (NotDetected) Coronavirus NL63 (PCR) Not Detected (NotDetected) Human Metapneumovir PCR Not Detected (NotDetected) Influenza Type A (PCR) Not Detected (NotDetected) Influenza Type B (PCR) Not Detected (NotDetected) M. pneumoniae (PCR) Not Detected (NotDetected) Parainfluenza 1 (PCR) Not Detected (NotDetected) Parainfluenza 2 (PCR) Not Detected (NotDetected) Parainfluenza 3 (PCR) Not Detected (NotDetected) Parainfluenza 4 (PCR) Not Detected (NotDetected) RSV (PCR) Not Detected (NotDetected) Entero/Rhino (PCR) Not Detected (NotDetected) Blood Type Antibody Screen 02/29/24 02/29/24 Range/Units 14:52 16:00 WBC (4.8-10.8) K/ul RBC (4.20-5.40) M/uL Hgb (12.0-16.0) g/dl Hct (37.0-47.0) % MCV (80.0-100.0) fL MCH (25.0-34.0) pg MCHC (32.0-36.0) g/dL RDW Std Deviation (36.4-46.3) fL RDW Coeff of Johnny (11.5-14.5) % Plt Count (130-400) K/uL MPV (9.4-12.4) fL Immature Gran % (Auto) % Neut % (Auto) % Lymph % (Auto) % Harding % (Auto) % Eos % (Auto) % Baso % (Auto) % Neut # (Auto) (1.40-6.50) K/uL Lymph # (Auto) (1.20-3.40) K/uL Harding # (Auto) (0.11-0.59) K/uL Eos # (Auto) (0.00-0.50) K/uL Baso # (Auto) (0.00-0.20) K/uL Immature Gran # (Auto) (0.01-0.20) K/uL PT (9.0-12.0) Seconds INR (0.9-1.1) VBG pH 7.41 (7.36-7.41) VBG pCO2 49 (38-50) mmHg VBG pO2 36 mmHg VBG HCO3 31 mmol/L VBG O2 Saturation < 60.0 % VBG Base Excess 5.3 mEq/L Sodium (136-145) mmol/L Potassium (3.5-5.1) mmol/L Chloride (98-107) mmol/L Carbon Dioxide (21-32) mmol/L Anion Gap (3-11) BUN (6-23) mg/dl Creatinine (0.6-1.2) mg/dl Est Cr Clr Drug Dosing ml/min Est GFR ( Amer) ml/min Est GFR (Non-Af Amer) ml/min BUN/Creatinine Ratio (10-20) Glucose (70-99(Fasting)) mg/dl Lactate (0.4-2.0) mmol/L Calcium (8.6-10.3) mg/dl Magnesium (1.7-2.4) mg/dl Total Bilirubin (0.2-1.0) mg/dl AST (13-39) U/L ALT (7-52) U/L Alkaline Phosphatase (34-104) U/L Total Creatine Kinase (26-192) U/L Troponin I High Sens 694.6 H* (0-14) pg/ml B-Natriuretic Peptide (0-100) pg/ml Total Protein (6.0-8.3) gm/dl Albumin (3.4-5.0) gm/dl Globulin (2.5-4.0) gm/dl Albumin/Globulin Ratio (0.9-2) Lipase (11-82) U/L Procalcitonin (0-0.5) ng/ml TSH (0.300-4.500) uIu/ml Free T4 (0.61-1.60) ng/dl Digoxin (0.8-2.0) ng/ml Adenovirus (PCR) (NotDetected) B. pertussis DNA (PCR) (NotDetected) B.parapertussis DNA PCR (NotDetected) C. pneumoniae DNA (PCR) (NotDetected) Coronavirus OC43 (PCR) (NotDetected) Coronavirus HKU1 (PCR) (NotDetected) Coronavirus 229E (PCR) (NotDetected) SARS-CoV-2 (PCR) (NotDetected) Coronavirus NL63 (PCR) (NotDetected) Human Metapneumovir PCR (NotDetected) Influenza Type A (PCR) (NotDetected) Influenza Type B (PCR) (NotDetected) M. pneumoniae (PCR) (NotDetected) Parainfluenza 1 (PCR) (NotDetected) Parainfluenza 2 (PCR) (NotDetected) Parainfluenza 3 (PCR) (NotDetected) Parainfluenza 4 (PCR) (NotDetected) RSV (PCR) (NotDetected) Entero/Rhino (PCR) (NotDetected) Blood Type A Positive Antibody Screen NEGATIVE Administered Medications Discontinued Medications Ondansetron HCl (Ondansetron Inj 2 Mg/Ml 2 Ml Vial) 4 mg IV NOW STA Stop: 02/29/24 14:07 Last Admin: 02/29/24 14:17 Dose: 4 mg Documented By: Imaging Data Radiologist's Impression: Abdomen/Pelvis CT 02/29/24 14:06 CT OF THE ABDOMEN AND PELVIS WITHOUT CONTRAST CLINICAL HISTORY: Abdominal pain, vomiting, sacral wounds. COMPARISON STUDY: CT of the abdomen and pelvis February 08, 2024. TECHNIQUE: Axial images of the abdomen and pelvis were obtained without IV contrast. Images were reviewed in the axial, sagittal, and coronal planes. Automated exposure control was utilized for the study. A dose lowering technique was utilized adhering to the principles of ALARA. FINDINGS: Lung bases are unremarkable. No pneumatosis, free air or portal venous gas is present. Unenhanced images of liver, spleen, adrenal glands and pancreas are unremarkable. There is no biliary or pancreatic ductal dilatation. There is no evidence for a bowel obstruction. The appendix is normal. There is sigmoid diverticulosis without evidence for acute diverticulitis. Postoperative findings within the bilateral femurs are again noted. An L1 compression fracture is unchanged in appearance. Bilateral renal calculi measure up to 1.6 cm. Left ureteral stent remains in place. There are no ureteral calculi. Mild left hydronephrosis has slightly decreased since prior exam. Images of the pelvis are degraded by artifact. A left retroperitoneal hematoma has slightly decreased in size since prior CT. It now measures 11.1 x 6.6 cm, previously 11.9 x 6.9 cm. Adjacent intramuscular hemorrhage has decreased. No sites of hemorrhage are identified. IMPRESSION: 1. Mild interval decrease in size of the large left retroperitoneal/infrarenal hematoma since CT of February 08, 2024. Interval decrease in associated intramuscular hemorrhage. No new sites of bleeding. 2. Left ureteral stent in place. Slight decrease in left hydronephrosis. No ureteral calculi identified. 3. Bilateral nephrolithiasis. 4. No bowel obstruction. ACT 112: Negative or not required by law. Electronically signed by: Giorgio Rincon M.D. 02/29/2024 3:33 PM Chest X-Ray 02/29/24 14:06 XR chest 1V portable HISTORY: 63 years-old Female weakness, hypoxia acute weakness with hypoxia COMPARISON: Chest CT 02/08/2024 TECHNIQUE: AP view of the chest FINDINGS: Cardiomediastinal and hilar silhouettes are unchanged. Atherosclerosis of the aorta. No pneumothorax, pleural effusion or airspace consolidation. Spondylotic spurring of the spine. IMPRESSION: No acute process. ACT 112: Negative or not required by law. The above report was generated using voice recognition software. It may contain grammatical, syntax or spelling errors. Electronically signed by: Harsh Olivarez M.D. 02/29/2024 2:59 PM Discharge Plan Visit Data Chief Complaint: Vomiting Stated Complaint: illness ED Provider: Scott Paulson Discharge Problem: Generalized weakness, Obesity, Hypoxia, Elevated troponin, Abdominal pain, Retroperitoneal bleed, Nausea and vomiting, Acute UTI Patient Disposition: Being Evaluated by Hospitalist
--- NOTE | 2024-02-29 15:00 | XRay Report ---
XR chest 1V portable HISTORY: 63 years-old Female weakness, hypoxia acute weakness with hypoxia COMPARISON: Chest CT 02/08/2024 TECHNIQUE: AP view of the chest FINDINGS: Cardiomediastinal and hilar silhouettes are unchanged. Atherosclerosis of the aorta. No pneumothorax, pleural effusion or airspace consolidation. Spondylotic spurring of the spine. IMPRESSION: No acute process. ACT 112: Negative or not required by law. The above report was generated using voice recognition software. It may contain grammatical, syntax o r spelling errors. Electronically signed by: Harsh Olivarez M.D. 02/29/2024 2:59 PM
[2024-02-29 15:03] LABS: Albumin Globulin Ratio 0.9 (0.9-2); Albumin Level 2.7 gm/dl (3.4-5.0); BUN Creatinine Ratio 19.5 (10-20); Bilirubin,Total 1.4 mg/dl (0.2-1.0); Calcium 6.8 mg/dl (8.6-10.3); Creatinine Clr Calc Pharmacy 79.1 ml/min; Est GFR (African American) 60.3 ml/min; Globulin 3.1 gm/dl (2.5-4.0); Magnesium 1.5 mg/dl (1.7-2.4); Potassium 4.1 mmol/L (3.5-5.1); Total Protein 5.8 gm/dl (6.0-8.3)
[2024-02-29 15:12] LABS: Base Excess VBG 5.3 mEq/L; HCO3 VBG 31 mmol/L; Oxygen Saturation VBG < 60.0 %; PCO2 VBG 49 mmHg (38-50); PO2 VBG 36 mmHg; pH VBG 7.41 (7.36-7.41)
[2024-02-29 15:12] LABS: Troponin I High Sensitivity 672.3 pg/ml (0-14)
[2024-02-29 15:16] LABS: Thyroid Stimulating Hormone 4.819 uIu/ml (0.300-4.500)
[2024-02-29 15:22] LABS: Adenovirus PCR Not Detected (NotDetected); Bordetella parapertussis PCR Not Detected (NotDetected); Bordetella pertussis PCR Not Detected (NotDetected); Chlamydia pneumoniae PCR Not Detected (NotDetected); Coronavirus 229E PCR Not Detected (NotDetected); Coronavirus CoV-2 (COVID19)PCR Not Detected (NotDetected); Coronavirus HKU1 PCR Not Detected (NotDetected); Coronavirus NL63 PCR Not Detected (NotDetected); Coronavirus OC43PCR Not Detected (NotDetected); Human Metapneumovirus PCR Not Detected (NotDetected); Influenza A PCR Not Detected (NotDetected); Influenza B PCR Not Detected (NotDetected); Mycoplasma pneumoniae PCR Not Detected (NotDetected); Parainfluenza Virus 1 PCR Not Detected (NotDetected); Parainfluenza Virus 2 PCR Not Detected (NotDetected); Parainfluenza Virus 3 PCR Not Detected (NotDetected); Parainfluenza Virus 4 PCR Not Detected (NotDetected); Respiratory Syncytial VirusPCR Not Detected (NotDetected); Rhinovirus/Enterovirus PCR Not Detected (NotDetected)
--- NOTE | 2024-02-29 15:35 | CT Scan Report ---
CT OF THE ABDOMEN AND PELVIS WITHOUT CONTRAST CLINICAL HISTORY: Abdominal pain, vomiting, sacral wounds. COMPARISON STUDY: CT of the abdomen and pelvis February 08, 2024. TECHNIQUE: Axial images of the abdomen and pelvis were obtained without IV contrast. Images were revi ewed in the axial, sagittal, and coronal planes. Automated exposure control was utilized for the carly dy. A dose lowering technique was utilized adhering to the principles of ALARA. FINDINGS: Lung bases are unremarkable. No pneumatosis, free air or portal venous gas is present. Unen hanced images of liver, spleen, adrenal glands and pancreas are unremarkable. There is no biliary or pancreatic ductal dilatation. There is no evidence for a bowel obstruction. The appendix is normal. T here is sigmoid diverticulosis without evidence for acute diverticulitis. Postoperative findings with in the bilateral femurs are again noted. An L1 compression fracture is unchanged in appearance. Bilat eral renal calculi measure up to 1.6 cm. Left ureteral stent remains in place. There are no ureteral calculi. Mild left hydronephrosis has slightly decreased since prior exam. Images of the pelvis are d egraded by artifact. A left retroperitoneal hematoma has slightly decreased in size since prior CT. I t now measures 11.1 x 6.6 cm, previously 11.9 x 6.9 cm. Adjacent intramuscular hemorrhage has decreas ed. No sites of hemorrhage are identified. IMPRESSION: 1. Mild interval decrease in size of the large left retroperitoneal/infrarenal hematoma since CT of M 2023. Interval decrease in associated intramuscular hemorrhage. No new sites of bleeding. 2. Left ureteral stent in place. Slight decrease in left hydronephrosis. No ureteral calculi identifi ed. 3. Bilateral nephrolithiasis. 4. No bowel obstruction. ACT 112: Negative or not required by law. Electronically signed by: Giorgio Rincon M.D. 02/29/2024 3:33 PM
[2024-02-29 16:00] LABS: T4 Free Thyroxine 1.64 ng/dl (0.61-1.60)
--- NOTE | 2024-02-29 16:12 | History & Physical Report ---
Date of Service February 29, 2024 Assessment & Plan (1) Nausea and vomiting: (2) Elevated troponin: (3) Hypoxia: (4) Anemia: (5) Retroperitoneal bleed: (6) Panniculitis: (7) Generalized weakness: (8) Morbid obesity with BMI of 60.0-69.9, adult: (9) Hypertension: (10) Tachycardia-bradycardia syndrome: (11) Hypothyroidism: (12) Atrial fibrillation: (13) HLD (hyperlipidemia): (14) Aortic stenosis: Plan This is a 63-year-old female with past medical significant for paroxysmal atrial fibrillation anticoagulated on Eliquis, tachybradycardia syndrome, HFpEF HTN, HLD, hypothyroidism, obesity, kidney stones, neuropathy ,history of depression, morbid obesity, recent retroperitoneal hematoma and other medical problems listed below who presents from [facility] with nausea and vomiting, hypoxia and troponin elevation. Has been admitted twice previously during 2023, most recently from 01/29- for acute on chronic anemia secondary to retroperitoneal bleed, panniculitis, FLETCHER on CKD and L1 compression fracture. Eliquis was discontinued at this time due to bleed. Returning from [facility] with worsening sacral wounds, other wounds on posterior legs, N/V and elevated troponin. Nausea/vomiting Resp biofire negative Stool culture pending CT abd/pelvis with: 1. Mild interval decrease in size of the large left retroperitoneal/infrarenal hematoma since CT of February 08, 2024. Interval decrease in associated intramuscular hemorrhage. No new sites of bleeding. 2. Left ureteral stent in place. Slight decrease in left hydronephrosis. No ureteral calculi identified In setting of UTI, possible gastroenteritis, multiple wounds and elevated trop as discussed below Antiemetics, caution fluid resuscitation given volume overloaded status, lactate WNL Elevated troponin Question atypical ACS with N/V, reports R sided chest pain the past week but not in past few days, no ST elevation on EKG, some nonspecific T wave changes HS troponin 672 -> 694.6 Trop elevated in the past but 40 or less Not a good candidate for IV heparin given recent retroperitoneal bleed in LLE, recently had Eliquis discontinued 2D echo, trend troponin, repeat EKG in AM Discussed with Dr. Arreola who agrees with holding off on IV heparin given history. Medically manage, routine cardiology consult placed Complicated UTI UA abnormal with 3+ bacteria, 3+ leuk esterase Recent ureteral stent placement Start empiric Rocephin, follow urine culture BLE wounds, sacral wounds, possible cellulitis Involving lower extremities and panniculitis and also left lateral thigh and hip Significantly worsened since discharge from hospital, per patient Admittedly not moving out of bed except to use bedside commode Afebrile, no leukocytosis Wound care at bedside in ED, placing a hernandez catheter and rectal tube to keep perineal area dry Dapto, rocephin as above for empiric abx coverage MRSA swab pending Nystatin for skin folds Diarrhea Having continuous diarrhea downstairs, stool cx and c diff cx pending Retroperitoneal hematoma H/o intramuscular hemorrhage of left psoas and iliopsoas muscles during last admission in January, small extraperitoneal hemorrhage extending into pelvis In setting of anticoagulation with Eliquis, which has been held since then Required 4 units prbcs during stay CT abd/pelvis with mild interval decrease in size of the large left retroperitoneal/infrarenal hematoma since CT of February 08, 2024. Interval decrease in associated intramuscular hemorrhage. No new sites of bleeding. Hgb stable at 9.6 (previously 8.4) CKD stage III/IV Cr: 1.13, significantly improved from previous Continue to monitor Acute hypoxia Saturating in high 80s on admission, afebrile VBG unremarkable Now 95% on 2 L NC Resp panel negative CT chest pending Cont supplemental O2 for now Acute decompensated HFpEF Was managed by Rn Camp previously BNP 734 Home diuretic changed to Furosemide 80mg BID and KCL increased to 30mEq TID, managed by nephrology on previous admission Appears volume overloaded on admission, giving 40mg IV Lasix this evening, reassess volume in AM Daily weights, I&Os, low sodium diet Hypomagnesemia Mg 1.5. Repleted in ED Repeat in AM Atrial fibrillation H/O Tachybradycardia syndrome Refused pacemaker in the past Continue metoprolol and digoxin Eliquis has been held since January hospitalization 2/2 retroperitoneal hematoma Hypertension Continue metoprolol Monitor BP Hyperlipidemia On statin, holding while on dapto Morbid obesity Counseled extensively regarding need for weight loss BMI 64 Hypothyroidism Continue levothyroxine TSH free T4 abnormalities noted, has been acutely sick for weeks Will need to follow TFTs when more medically stable DVT Ppx: SCDs, unable to use chemical VTE given recent retroperitoneal bleed Code status: FULL PCP: [facility] Dispo: admit to PCU Patient seen in collaboration with Dr. Mason. Please see addendum. I spent a total of 80 minutes coordinating, documenting, and providing care for this patient excluding time spent in the performance of separately billed services. History of Present Illness Chief Complaint: nausea, vomiting Primary Care Provider: Rik Alan DO This is a 63yo F with a PMH of paroxysmal A fib anticoagulated no longer on Eliquis, tachybradycardia syndrome, HTN, HLD, hypothyroidism, obesity, kidney stones, neuropathy, history of depression, morbid obesity, recent panniculitis who presents with nausea and vomiting and hypoxia from [facility]. Has been admitted twice previously during 2023, most recently from for acute on chronic anemia secondary to retroperitoneal bleed, panniculitis, FLETCHER on CKD and L1 compression fracture. Eliquis was discontinued at this time due to bleed. Was discharged on 319 to [facility] for rehab. Patient states she started to feel ill a few days ago endorsing chills, lightheadedness, decreased appetite, dry heaves x 4 days with actual vomiting x 2 days. Abdomen is sore from vomiting the past few days. Has pain in sacral wounds and left hip. No palpitation, SOB, dysuria, Endorses ongoing watery diarrhea. States she did have some right chest wall pain during last hospitalization that she sometimes still has intermittently at [facility] with coughing or moving her arms. No chest pain at this time. Has been transferring to bedside commode and wheelchair and starting to ambulate with a walker. Allergies Allergy/AdvReac Type Severity Reaction Status Date / Time mineral oil Allergy Intermediate rash to Verified 02/29/24 15:46 "Baby Oil" (mineral oil/fragrance/vit E) nickel Allergy Intermediate itching Verified 02/29/24 15:46 lisinopril AdvReac Intermediate Cough Verified 02/29/24 15:46 simvastatin AdvReac Intermediate Muscle Pain Verified 02/29/24 15:46 Home Medications Medication Instructions Recorded Confirmed Type alendronate 70 mg tablet 70 mg PO WK 30 days #4 tabs 02/15/24 02/29/24 Rx atorvastatin 40 mg tablet 40 mg PO DAILY 30 days #30 tabs 02/15/24 02/29/24 Rx cholecalciferol (vitamin D3) 25 25 mcg PO DAILY #30 caps 24 02/29/24 Rx mcg (1,000 unit) capsule (Vitamin D3) famotidine 20 mg tablet 20 mg PO BID #60 tabs 02/15/24 02/29/24 Rx furosemide 80 mg tablet 80 mg PO BID #60 tabs 24 02/29/24 Rx gabapentin 300 mg capsule 300 mg PO HS 30 days #30 caps 24 02/29/24 Rx levothyroxine 100 mcg tablet 100 mcg PO QAM 30 days #30 tabs 02/15/24 02/29/24 Rx (Euthyrox) metoprolol succinate 50 mg 100 mg (2 x 50 mg) PO BID 30 days 02/15/24 02/29/24 Rx tablet,extended release 24 hr #120 tabs tamsulosin 0.4 mg capsule 0.4 mg PO HS #30 caps 02/15/24 02/29/24 Rx acetaminophen 325 mg tablet 650 mg PO Q6H PRN fever or pain 02/29/24 02/29/24 History ascorbic acid (vitamin C) 500 mg 500 mg PO DAILY 02/29/24 02/29/24 History tablet (Vitamin C) citalopram 10 mg tablet (Celexa) 10 mg PO DAILY 02/29/24 02/29/24 History diclofenac sodium 1 % topical gel 4 g EXT Q6H knee pain 02/29/24 02/29/24 History (Voltaren Arthritis Pain) digoxin 125 mcg (0.125 mg) tablet 0.125 mg PO MOWEFR@0900 02/29/24 02/29/24 History (Digitek) omeprazole 20 mg tablet,delayed 20 mg PO DAILY 02/29/24 02/29/24 History release potassium chloride 10 mEq 10 meq PO TID 02/29/24 02/29/24 History capsule,extended release potassium chloride 20 mEq 20 meq PO TID 02/29/24 02/29/24 History tablet,extended release saliva substitute combo no.9 1 ea PO QID PRN Dry Mouth 02/29/24 02/29/24 History (Biotene PBF mouthwash) Past Med/Surg History Medical History Urolithiasis Morbid obesity with BMI of 60.0-69.9, adult Frequent urination at night Pre-diabetes Neuropathy Atrial fibrillation on Eliquis Cardiac murmur Follows with Dr. Olga Lidia BARRAZA (hyperlipidemia) Osteoporosis Hypothyroidism Tachycardia-bradycardia syndrome Hypertension Surgical History History of wisdom tooth extraction History of hip surgery BL Family History Other No family history of adverse response to anesthesia Social History Smoking Status: Never smoker Second Hand Exposure: No; Do You Dip or Chew Tobacco: No; Hx Alcohol Use: Yes Alcohol type: other Hx Substance Use: No Preferred Language: Chadian Communication Ability: Effective Branch Operations Specialist Required: No Beliefs That Will Affect Care: None Current Living Situation: Significant Other Current Living Situation Comment: Home with Fiancee How many Children do You have: 0 Feels Safe at Home: Yes Assistive Devices: Cane, Denture - Upper, Denture - Lower and Walker Review of Systems Review of Systems: At least ten systems reviewed and negative except as noted in the HPI. Physical Exam Physical Exam: General Appearance: WD/WN, vitals as above, laying in bed on side while RNs clean wounds, morbidly obese Head: normocephalic, atraumatic Eyes: normal inspection, PERRL, conjunctivae normal, anicteric sclerae ENT: external ear and nose normal, oropharynx normal Neck: normal visual inspection, trachea midline, no thyromegaly Respiratory: normal respiratory effort, coarse breath sounds bilaterally with scattered wheezes No accessory muscle use Cardiovascular: regular rate, rhythm, 2+ BLE edema. Vessels: unable to assess JVD Chest: normal inspection of chest Abdomen/GI: normal bowel sounds, soft, nontender, no hepatosplenomegaly, + erythema in skin folds Extremities/Musculoskeletal: no cyanosis or clubbing, extremities motor strength 5/5. + Posterior LLL 3x8 cm area contusion without bleeding, TTP Neurologic: PERRL, EOMI, accommodation nl, no face palsy, no dysarthria, CN's II-XI intact bilaterally and moves all extremities Psychiatric: A+Ox3, euthymic affect Skin: warm/dry, extensive sacral pressure ulcer with scattered round wounds up to stage 3 noted on back side, posterior legs, pannicular fold, L heel Results & Data Results & Data Vital Signs (Past 12 Hours) Vital Signs Temp Pulse Resp BP Pulse Ox O2 Del Method O2 Flow Rate 02/29/24 15:30 76 16 120/68 99 02/29/24 14:30 79 22 155/65 H 92 Nasal Cannula 2 02/29/24 13:48 82 02/29/24 13:35 36.5 C 83 18 125/54 L 91 Nasal Cannula 2 Laboratory Results Short CBC 02/29/24 Range/Units 13:49 WBC 9.64 (4.8-10.8) K/ul Hgb 9.6 L (12.0-16.0) g/dl Hct 30.7 L (37.0-47.0) % Plt Count 249 (130-400) K/uL BMP 02/29/24 13:49 Sodium 139 Potassium 4.1 Chloride 102 Carbon Dioxide 27 BUN 22 Creatinine 1.13 Glucose 104 H Calcium 6.8 L Cardiac Enzymes 02/29/24 Range/Units 13:49 Total Creatine Kinase 154 (26-192) U/L Liver Function 02/29/24 Range/Units 13:49 Total Bilirubin 1.4 H (0.2-1.0) mg/dl AST 30 (13-39) U/L ALT 13 (7-52) U/L Alkaline Phosphatase 77 (34-104) U/L Albumin 2.7 L (3.4-5.0) gm/dl Diagnostic Findings Abdomen/Pelvis CT 02/29/24 14:06 CT OF THE ABDOMEN AND PELVIS WITHOUT CONTRAST CLINICAL HISTORY: Abdominal pain, vomiting, sacral wounds. COMPARISON STUDY: CT of the abdomen and pelvis February 08, 2024. TECHNIQUE: Axial images of the abdomen and pelvis were obtained without IV contrast. Images were reviewed in the axial, sagittal, and coronal planes. Automated exposure control was utilized for the study. A dose lowering technique was utilized adhering to the principles of ALARA. FINDINGS: Lung bases are unremarkable. No pneumatosis, free air or portal venous gas is present. Unenhanced images of liver, spleen, adrenal glands and pancreas are unremarkable. There is no biliary or pancreatic ductal dilatation. There is no evidence for a bowel obstruction. The appendix is normal. There is sigmoid diverticulosis without evidence for acute diverticulitis. Postoperative findings within the bilateral femurs are again noted. An L1 compression fracture is unchanged in appearance. Bilateral renal calculi measure up to 1.6 cm. Left ureteral stent remains in place. There are no ureteral calculi. Mild left hydronephrosis has slightly decreased since prior exam. Images of the pelvis are degraded by artifact. A left retroperitoneal hematoma has slightly decreased in size since prior CT. It now measures 11.1 x 6.6 cm, previously 11.9 x 6.9 cm. Adjacent intramuscular hemorrhage has decreased. No sites of hemorrhage are identified. IMPRESSION: 1. Mild interval decrease in size of the large left retroperitoneal/infrarenal hematoma since CT of February 08, 2024. Interval decrease in associated intramuscular hemorrhage. No new sites of bleeding. 2. Left ureteral stent in place. Slight decrease in left hydronephrosis. No ureteral calculi identified. 3. Bilateral nephrolithiasis. 4. No bowel obstruction. ACT 112: Negative or not required by law. Electronically signed by: Giorgio Rincon M.D. 02/29/2024 3:33 PM Chest X-Ray 02/29/24 14:06 XR chest 1V portable HISTORY: 63 years-old Female weakness, hypoxia acute weakness with hypoxia COMPARISON: Chest CT 02/08/2024 TECHNIQUE: AP view of the chest FINDINGS: Cardiomediastinal and hilar silhouettes are unchanged. Atherosclerosis of the aorta. No pneumothorax, pleural effusion or airspace consolidation. Spondylotic spurring of the spine. IMPRESSION: No acute process. ACT 112: Negative or not required by law. The above report was generated using voice recognition software. It may contain grammatical, syntax or spelling errors. Electronically signed by: Harsh Olivarez M.D. 02/29/2024 2:59 PM Supervising Physician Co-Signing Physician Notes Pt was seen and examined by myself, Nancy Mason MD on the day of service. Care was coordinated with Jaylene Ratliff PA-C. 63yoF with frequent admissions presenting from rehab with open wounds and N/V/D. Pt states that she was nauseous at the time of exam, dry heaving. Did not want this examiner to see her wounds as she had recently been placed in a comfortable position by nursing and was covered in blankets. Possible acute gastroenteritis-pt presenting with N/V/D, stool Cx and c diff pending. Rectal tube as pt has flowing BMs per nursing, unable/unwilling to move. Antiemetics, supportive care Wounds- in gluteal area, barrier cream, empiric abx with Rocephin/Dapto . Wound care consult, appreciated. UTI- UA suggestive of infection, urine Cx pending. On Rocephin as above Elevated Trop/NSTEMI- trop significantly elevated with this acute insult, EKG NSR, repeat echo pending. NSTEMI Type II likely, however given significant rise in trop will consult cardiology for further recs. In setting of recent retroperitoneal bleed, will avoid anticoagulation at this time. CHF- BNP elevated, pt with known need for IV diuresis. Continue home Lasix 80mg po BID with KCl. Daily weights, strict I&Os, monitor volume status. cardiology on board as above. Atrial Fibrillation- known Hx, on metoprolol and digoxin, digoxin level currently low. Will defer to cardiology on board for further recs. Hypomagnesemia- replete as needed Hyperglycemia- slightly elevated, AM hgba1c, r/o prediabetes/DM Retroperitoneal Bleed- noted at last recent admission, improving on CT abd/pelvis. Hgb stable even higher at 9 Anemia- hgb 9, actually better. Likely in setting of previous retroperitoneal bleed as above, AM anemia workup as well to optimize with supplementation as nee ded Coagulopathy- PT/INR elevated, not on anticoagulation currently in setting of retroperitoneal bleed, continue to monitor Chronic hydronephrosis- stent in place, improving on imaging Otherwise as above. I spent a total [id number] coordinating, documenting, and providing care for this patient excluding time spent in the performance of separately billed services
[2024-02-29] MEDS ORDERED: POLYETHYLENE (MIRALAX) 17 GM PACK PO PRN (17:40)
[2024-02-29] MEDS ORDERED: ACETAMINOPHEN 325 MG TAB PO PRN (17:40)
[2024-02-29 18:16] LABS: Appearance Urine Turbid (Clear); Bilirubin Urine Negative (Negative); Blood Urine 3+ (Negative); Color Urine Brown; Glucose Urine UA Negative (Negative); Ketones Urine Negative (Negative); Leukocyte Esterase Urine 3+ (Negative); Nitrite Urine Negative (Negative); Protein Urine 2+ (Negative); Urobilinogen Urine Negative (Negative); pH Urine 5.5 (4.5-7.5)
[2024-02-29 18:25] LABS: Epithelial Cell Urine 0-5 /lpf (0-5); RBC Urine >30 /hpf (0-4); WBC Urine >30 /hpf (0-5)
[2024-02-29 18:26] LABS: Bacteria Urine 3+ (Negative)
--- NOTE | 2024-02-29 18:53 | CT Scan Report ---
CT chest diagnostic wo con CT DOSE: 1228.14 mGy.cm CLINICAL HISTORY: 63 years-old Female with volume overload, N/V. Acute shortness of breath with naus ea and vomiting. Fluid overload. TECHNIQUE: Multiaxial CT images of the chest were performed without contrast. A dose lowering techni que was utilized adhering to the principles of ALARA. COMPARISON: CT abdomen and pelvis of same day, chest CT 02/08/2024 FINDINGS: Unremarkable thyroid. 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 Moderate cardio megaly with decreased attenuation of the cardiac blood pool compatible with anemia. Trace pericardial effusion. Extensive coronary artery calcifications. Atherosclerosis of the aorta without aneurysm. N o lymphadenopathy. No pneumothorax, pleural effusion or overt pulmonary edema. No airspace consolidation typical for pne umonia. Minimal left apical atelectasis versus scarring with left upper lobe air trapping. There are no suspicious pulmonary nodules or masses identified. Minimal subsegmental left basilar atelectasis. Bronchial wall thickening with areas of mucous plugging. Partially imaged left renal calculus. No acu te fracture identified. Degenerative changes of the shoulders and spine. Healing subacute nondisplace d bilateral rib fractures again noted. Chronic L1 fracture deformity. IMPRESSION: 1. No evidence of pulmonary edema or pneumonia. 2. Mild bronchial wall thickening may represent bronchitis with areas of mucous plugging. 3. Left nephrolithiasis. 4. Healing subacute nondisplaced bilateral rib fractures. ACT 112: Negative or not required by law. Electronically signed by: Harsh Olivarez M.D. 02/29/2024 6:51 PM
[2024-02-29] MEDS: FUROSEMIDE 40 MG/4 ML VIAL IV ONE (19:31)
[2024-02-29] MEDS: DAPTOmycin 400 MG in SYRINGE 0 ML IV SCH (19:35)
[2024-02-29] MEDS: ONDANSETRON INJ 2 MG/ML 2 ML VIAL IV PRN (19:40)
[2024-02-29] MEDS: cefTRIAXone SODIUM 2,000 MG in DEXTROSE 5 % MINI-B 50 ML IV SCH (19:42)
[2024-02-29] MEDS: MAGNESIUM SULFATE / D5W 1 GM/100 ML BAG IV SCH (20:38)
[2024-02-29] MEDS: DICLOFENAC SOD 1% GEL 100 GM TUBE EXT SCH (20:41)
[2024-02-29] MEDS: POTASSIUM CHLORIDE 10 MEQ TABCR PO SCH (20:46)
[2024-02-29] MEDS: POTASSIUM CHLORIDE CRTAB 20 MEQ TABCR PO SCH (20:46)
[2024-02-29] MEDS: GABAPENTIN 300 MG CAP PO SCH (20:46)
[2024-02-29] MEDS: TAMSULOSIN HCL 0.4 MG CAP PO SCH (20:46)
[2024-02-29] MEDS: FAMOTIDINE 20 MG TAB PO SCH (20:46)
[2024-02-29] MEDS: METOPROLOL SUCC 50MG EXT REL TAB PO SCH (20:46)
[2024-02-29] MEDS ORDERED: FUROSEMIDE 80 MG TAB PO SCH (21:00)
[2024-02-29] MEDS: PROMETHAZINE HCL 12.5 MG in SODIUM CHLORIDE 0.9% 50 ML IV STA (22:34)
[2024-02-29] MEDS: MICONAZOLE NITRATE POWDER 85 GM EXT SCH (23:12)
--- OUTSIDE RECORDS SUMMARY | 2024-03-01 01:02 | External Medical Summary | Summary of Care ---
Author Name Unknown Organization [facility] Address [address] [facility] [place] [address] Phone [phone] Care Team Providers Care Trailer Sections Assembler Name Role Phone [place] Shamika CH Primary Care Provider [phone] Reason for Visit * Reason Onset Date Comments [facility]: Maintenance 02/23/2024 Encounter Details Date Type Department Care Team (Late st Contact Info) Description 02/23/2024 1:00 PM EDT Scheduled Telephone [facility], [facility] [address] [facility] [place] [id number] Mirian Queen, [address] [facility] [place] [address] Allergies Active Allergy Reactions Criticality Noted Date Comments Baby Oil High 05/15/2022 Other reaction(s): Rash Lisinopril Cough 09/10/2010 Other Allergy (See Comments) Itching 014 BABY OIL Simvastatin 01/24/2008 myalgias documented as of this encounter (statuses as of 02/23/2024) Medications Medication Sig Dispensed Refills Start Date [...] maintenance. 20 mL 1 05/26/2023 Active Nystatin 043701 UNIT/GM External Powder 3 times a day. [...] 11/11/2023 Active Vitamin D (Ergocalciferol) 1.25 MG (37158 UT) Oral Capsule (Drisdol) take 1 capsule by mouth once weekly starting 11/17/2023. 6 Capsule 0 11/13/2023 Active valACYclovir HCl 1 GM Oral Tablet (Valtrex)Indications :Cold sore Take 2 Tablets by mouth in the morning and 2 Tablets before bedtime. For 1 day for cold sores. 4 Tablet 11 11/15/2023 Active documented as of this encounter (statuses as of 02/23/2024) Active Problems Problem Noted Date Diagnosed Date Food insecurity 11/08/2023 Overview: Per [facility] Protocol Idiopathic polyneuropathy 05/10/2023 Osteoporosis 05/10/2023 Other hereditary and idiopathic neuropathies Tachy-brennan syndrome 08/31/2022 Medical home patient encounter 08/18/2022 Neuropathy 02/18/2022 Body mass index (BMI) of 60.0 to 69.9 in adult 0 02/09/2022 Overview: Per Obesity protocol - Per Obesity protocol PAF (paroxysmal atrial fibrillation) 10/28/2021 Senile osteoporosis 11/10/2016 HTN, goal below 130/80 06/16/2016 Hypothyroidism due to acquired atrophy of thyroi d 07/31/2015 Dyslipidemia, goal LDL below 160 02/17/2011 DEPRESS PSYCHOSIS-UNSPEC documented as of this encounter (statuses as of 02/23/2024) Resolved Problems Problem Noted Date Diagnosed Date Resolved Date FLETCHER (acute kidney injury) 05/10/2023 Overview: Acute condition- 2022 Urinary incontinence 02/24/2023 024 Body mass index (BMI) of 50. 0 [...] dyslipidemia 02/14/200310/23/200 9 Overview: Per Lipid Taxonomy Female infertility 4 OBESITY, UNSPECIFIED 007 documented as of this encounter (statuses as of 02/23/2024) Immunizations Name Administration Dates Next Due COVID-19 mRNA, LNP-s, PF, 18 + or 6-11Yrs (Moderna) 10/31/2021 COVID-19, LNP-s, No Preserve , Alexx-sucrose, Ages 12+ (Pfizer) 06/02/2022 Covid-19 Ad26, Single Dose (Aaron/J&J) 03/09/2021 Pneumococcal Conjugate Vacci ne, 20-valent ([id number]) 02/24/2023 Seasonal Influenza, PF, 6 M & [...] encounter Miscellaneous Notes * Telephone Encounter - Mirian Queen CM - 02/23/2024 10:56 AM EDT Call placed to [facility].Confirmed that patient is still at facility. Transferred to ASSISTANT TERMINAL MANAGER. Unable to leave message. Will call back Mirian Queen Clinical Education Academic Coordinator [facility] [email or web address] documented in this encounter Plan of Treatment Upcoming Encounters Date Type Department Care Team (Late st Contact Info) Description 02/28/2024 10:00 AM EDT Home Visit [facility] [place] [address] [place] [address] Glendy Skinner PA-C [address] [facility] [facility] [place] [address] 03/07/2024 10:00 AM EDT Office Visit Cardiology, [facility] [address] [facility] [place] [address] Soila Esparza CRNP [address] [facility] [place] [address] 03/07/2024 1:40 PM EDT Office Visit Family Practice [facility] [address] [facility] [place] [address] Rik Alan, [address] [facility] [place] [address] 03/28/2024 9:20 AM EDT Office Visit Nephrology, [facility] [address] [facility] [place] [address] Yaima Green MD [address] [place] [address] Scheduled Procedures Name Priority Associated Diagnoses Date/Ti [...] D LEVEL ONCE IN A LIFETIME-USE SMARTSET# [id number] Completed 02/20/2020, 11/09/2017, 04/14/2016, Additional history exists [...] filedocumented as of this encounter Care Teams Trailer Sections Assembler Relationship Specialty Start Date End Date Rik Alan DO [address] [place] [address] PCP - General Family Medicine 04/17/16 documented as of this encounter
--- OUTSIDE RECORDS SUMMARY | 2024-03-01 01:02 | External Medical Summary | Summary of Care ---
Author Name Unknown Organization [facility] Address [address] [place] [address] Phone [phone] Care Team Providers Care Canary Raiser Name Role Phone KimberlyRik [place] Shamika CH Primary Care Provider [phone] Reason for Visit * Reason Onset Date Comments [facility]: Maintenance 02/23/2024 Encounter Details Date Type Department Care Team (Late st Contact Info) Description 02/23/2024 1:00 PM EDT Scheduled Telephone [facility], [facility] [address] [place] [phone] Mirian Queen, [address] [place] [address] Allergies Active Allergy Reactions Criticality Noted Date Comments Baby Oil High 05/15/2022 Other reaction(s): Rash Lisinopril Cough 09/10/2010 Other Allergy (See Comments) Itching 014 BABY OIL Simvastatin 01/24/2008 myalgias documented as of this encounter (statuses as of 02/25/2024) Medications Medication Sig Dispensed Refills Start Date [...] maintenance. 20 mL 1 05/26/2023 Active Nystatin 574818 UNIT/GM External Powder 3 times a day. [...] 11/11/2023 Active Vitamin D (Ergocalciferol) 1.25 MG (86686 UT) Oral Capsule (Drisdol) take 1 capsule by mouth once weekly starting 11/17/2023. 6 Capsule 0 11/13/2023 Active valACYclovir HCl 1 GM Oral Tablet (Valtrex)Indications :Cold sore Take 2 Tablets by mouth in the morning and 2 Tablets before bedtime. For 1 day for cold sores. 4 Tablet 11 11/15/2023 Active documented as of this encounter (statuses as of 02/25/2024) Active Problems Problem Noted Date Diagnosed Date [...] as of this encounter (statuses as of 02/25/2024) Resolved Problems Problem Noted Date Diagnosed Date [...] as of this encounter (statuses as of 02/25/2024) Immunizations Name Administration Dates Next Due COVID-19 mRNA, LNP-s, PF, 18 + or 6-11Yrs (Moderna) 10/31/2021 COVID-19, LNP-s, No Preserve , Alexx-sucrose, Ages 12+ (Pfizer) 06/02/2022 Covid-19 Ad26, Single Dose (Aaron/J&J) 03/09/2021 Pneumococcal Conjugate Vacci ne, 20-valent ([id number]) 02/24/2023 Seasonal Influenza, PF, 6 M & [...] EDT Call placed to [facility].Confirmed that patient is still at facility. Transferred to [employer]. Unable to leave message. Will call back 02/23 insurance update. Goal is home. No dc plans at this time.. Cw will f/u in one week for dc planning Mirian Queen Research Subject [email or web address] documented in this encounter Plan of Treatment Upcoming Encounters Date Type Department Care Team (Late st Contact Info) Description 03/02/2024 1:15 PM EDT Scheduled Telephone [facility], [facility] [address] [place] [id number] Mirian Queen CM [address] [place] [address] 03/07/2024 10:00 AM EDT Office Visit Cardiology, [facility] [address] [place] [address] Soila Esparza CRNP [address] [place] [address] 03/07/2024 1:40 PM EDT Office Visit Family Practice [facility] [address] [place] [address] Rik Alan, DO [address] [place] [address] 03/28/2024 9:20 AM EDT Office Visit Nephrology, [facility] [address] [place] [address] Yaima Green MD [address] [place] [address] Scheduled Procedures Name Priority Associated Diagnoses Date/Ti [...] D LEVEL ONCE IN A LIFETIME-USE SMARTSET# [id number] Completed 02/20/2020, 11/09/2017, 04/14/2016, Additional history exists [...] filedocumented as of this encounter Care Teams Canary Raiser Relationship Specialty Start Date End Date Rik Alan DO [address] [place] [address] PCP - General Family Medicine 04/17/16 documented as of this encounter
[2024-03-01] MEDS: METOCLOPRAMIDE HCL INJ 5 MG/ML 2 ML VIAL IV PRN (01:23)
[2024-03-01 04:41] LABS: Hematocrit (blood only) 30.2 % (37.0-47.0); Hemoglobin 9.4 g/dl (12.0-16.0); Mean Corpuscular Hemoglobin 27.6 pg (25.0-34.0); Mean Corpuscular Hgb Conc 31.1 g/dL (32.0-36.0); Mean Corpuscular Volume 88.8 fL (80.0-100.0); Mean Platelet Volume 9.5 fL (9.4-12.4); Platelet Count 225 K/uL (130-400); RDW Coefficient of Variation 19.7 % (11.5-14.5); RDW Standard Deviation 63.6 fL (36.4-46.3); White Blood Count 8.44 K/ul (4.8-10.8)
[2024-03-01 04:53] LABS: Albumin Globulin Ratio 0.8 (0.9-2); Albumin Level 2.6 gm/dl (3.4-5.0); BUN Creatinine Ratio 18.6 (10-20); Bilirubin,Total 1.1 mg/dl (0.2-1.0); Calcium 6.7 mg/dl (8.6-10.3); Creatinine Clr Calc Pharmacy 79.3 ml/min; Est GFR (African American) 60.3 ml/min; Globulin 3.1 gm/dl (2.5-4.0); Potassium 3.7 mmol/L (3.5-5.1); Total Protein 5.7 gm/dl (6.0-8.3)
[2024-03-01 05:16] LABS: Folate (Folic Acid),Ser orPlas 13.7 ng/ml (>5.38)
[2024-03-01 05:20] LABS: Ferritin 224.6 ng/ml (8-388)
[2024-03-01] MEDS: LEVOTHYROXINE SODIUM 100 MCG TABLET PO SCH (06:11)
[2024-03-01 07:24] LABS: Estimated Average Glucose 103 mg/dl; Hemoglobin A1C 5.2 % (4.5-5.6)
[2024-03-01] MEDS: DIGOXIN 0.125 MG TAB PO SCH (09:27)
[2024-03-01] MEDS: PANTOprazole 40 MG TAB PO SCH (09:27)
[2024-03-01] MEDS: ATORVASTATIN 40 MG TAB PO SCH (09:27)
[2024-03-01] MEDS: CITALOPRAM 20 MG TAB PO SCH (09:28)
[2024-03-01] MEDS: ASCORBIC ACID 500 MG TAB PO SCH (09:29)
[2024-03-01] MEDS: CHOLECALCIFEROL 25 MCG (1000 UNITS) TAB PO SCH (09:29)
--- NOTE | 2024-03-01 09:55 | Hospitalist Progress Note ---
Date of Service March 01, 2024 Assessment & Plan (1) Nausea and vomiting: (2) Elevated troponin: (3) Hypoxia: (4) Anemia: (5) Retroperitoneal bleed: (6) Panniculitis: (7) Generalized weakness: (8) Morbid obesity with BMI of 60.0-69.9, adult: (9) Hypertension: (10) Tachycardia-bradycardia syndrome: (11) Hypothyroidism: (12) Atrial fibrillation: (13) HLD (hyperlipidemia): (14) Aortic stenosis: Plan This is a 63-year-old female with past medical significant for paroxysmal atrial fibrillation anticoagulated on Eliquis, tachybradycardia syndrome, HFpEF HTN, HLD, hypothyroidism, obesity, kidney stones, neuropathy ,history of depression, morbid obesity, recent retroperitoneal hematoma and other medical problems listed below who presents from [facility] with nausea and vomiting, hypoxia and troponin elevation. Has been admitted twice previously during 2023, most recently from 01/29- for acute on chronic anemia secondary to retroperitoneal bleed, panniculitis, FLETCHER on CKD and L1 compression fracture. Eliquis was discontinued at this time due to bleed. Returning from [facility] with worsening sacral wounds, other wounds on posterior legs, N/V and elevated troponin. Nausea/vomiting/diarrhea Acute gastroenteritis Resp biofire negative Stool culture negative C diff negative Antiemetics, supportive treatments- caution fluid resuscitation given volume overloaded status, lactate WNL Continue to monitor Demand ischemia NSTEMI Type II Elevated troponin Elevated troponin with N/V, reports R sided chest pain the past week but not in past few days, no ST elevation on EKG, some nonspecific T wave changes HS troponin 672 -> 694.6 -->392 Trop elevated in the past but 40 or less Not a good candidate for IV heparin given recent retroperitoneal bleed in LLE, recently had Eliquis discontinued Echo noting EF> 70%, aortic stenosis, Grade I diastolic dysfunction with no noted wall abnormalities Likely elevation in setting of demand with sig N/V/D, NSTEMI Type II Discuss[address] with Dr. Arreola who agrees with holding off on IV heparin given history. Medically manage, consult cardiology should pt develop symptoms or develop decompensated HF (see below) Complicated UTI UA suggestive of infection Urine cx currently growing gram positive cocci Blood Cx x 2 sets with NGTD Recent ureteral stent placement, CT abd pelvis noting improved hydronephrosis Continue Rocephin and empiric Dapto, narrow based on Cx results BLE wounds, sacral wounds, possible cellulitis Involving lower extremities and panniculitis and also left lateral thigh and hip Significantly worsened since discharge from hospital, per patient Admittedly not moving out of bed except to use bedside commode Afebrile, no leukocytosis Wound care at bedside in ED, placing a hernandez catheter and rectal tube to keep perineal area dry Dapto, rocephin as above for empiric abx coverage Nystatin for skin folds Wound Care nurse consulted Retroperitoneal hematoma H/o intramuscular hemorrhage of left psoas and iliopsoas muscles during last admission in January, small extraperitoneal hemorrhage extending into pelvis In setting of anticoagulation with Eliquis, which has been held since then Required 4 units prbcs during stay CT abd/pelvis with mild interval decrease in size of the large left retroperitoneal/infrarenal hematoma since CT of February 08, 2024. Interval decrease in associated intramuscular hemorrhage. No new sites of bleeding. Hgb stable at ~9.6 (previously 8.4) Continue to monitor H/H CKD stage III/IV Cr: 1.13, significantly improved from previous Continue to monitor Stable Acute hypoxia Saturating in high 80s on admission, afebrile VBG unremarkable Now 95% on 2 L NC Resp panel negative CT chest noting a bronchitis with mucous plugging On rocephin as above, consider addition of doxycycline Percussive vest therapy Cont supplemental O2 Wean oxygen as tolerated Iron Deficiency Anemia hgb 9, actually better Iron level low, transferrin sat <20%, ferritin wnl but likely elevated as an acute phase reactant given pt's multiple comorbidities and acute illness s/p 1 dose of IV Venofer on 03/01 Continue to monitor, transfuse as needed Coagulopathy PT/INR elevated not on anticoagulation currently in setting of retroperitoneal bleed continue to monitor Chronic HFpEF Was managed by Java User Interface Developer previously BNP 734 Echo noting EF> 70%, aortic stenosis, Grade I diastolic dysfunction with no noted wall abnormalities Home diuretic changed to Furosemide 80mg BID and KCL increased to 30mEq TID, managed by nephrology on previous admission Received 40mg IV Lasix ton admission, transitioned back to home lasix po dosing. Daily weights, I&Os, low sodium diet Continue to monitor Hypomagnesemia Mg 1.5 Replete as needed Atrial fibrillation H/O Tachybradycardia syndrome Refused pacemaker in the past Continue metoprolol and digoxin Eliquis has been held since January hospitalization 2/ retroperitoneal hematoma Hypertension Continue metoprolol Monitor BP Hyperlipidemia On statin, holding while on dapto Morbid obesity Counseled extensively regarding need for weight loss BMI 64 Hypothyroidism Continue levothyroxine TSH free T4 abnormalities noted, has been acutely sick for weeks Will need to follow TFTs when more medically stable Hyperglycemia Glucose level elevated Hgba1c reassuring, in normal range Anemia- hgb 9, actually better. Likely in setting of previous retroperitoneal bleed as above, AM anemia workup as well to optimize with supplementation as needed Coagulopathy- PT/INR elevated, not on anticoagulation currently in setting of retroperitoneal bleed, continue to monitor Chronic hydronephrosis- stent in place, improving on imaging DVT Ppx: SCDs, unable to use chemical VTE given recent retroperitoneal bleed Code status: FULL Diet: HH/low sodium/fluid restric 2L Dispo: PT/OT ordered Admission and Anticipated Discharge Date Admission Date: February 29, 2024 Subjective States still having n/v though improved. Boyfriend at bedside. Feeling slightly better Review of Systems Review of Systems: All systems reviewed & are unremarkable except as noted in Subjective Physical Exam Physical Exam: General: Alert, oriented. Skin: skin wounds Psych: Appropriate mood and affect Neuro: difficulty with movements HEENT: NC/AT CV: RRR, decreased heart sounds due to body habitus Resp: Breath sounds decreased bilaterally due to body habitus Abdomen: Soft Extremities: edema in lower extremities bilaterally. Results & Data Results & Data Vital Signs (Past 12 Hours) Vital Signs Pulse Pulse Resp BP BP Pulse Ox O2 Del Method 03/01/24 09:27 81 03/01/24 08:00 76 20 128/103 H 95 03/01/24 07:24 83 03/01/24 06:00 78 16 131/71 93 Nasal Cannula 03/01/24 06:00 78 16 93 03/01/24 05:30 78 22 96 03/01/24 05:00 75 19 128/68 97 03/01/24 05:00 75 19 97 03/01/24 04:30 77 17 97 03/01/24 04:00 76 16 98 03/01/24 04:00 76 16 148/78 H 98 03/01/24 03:30 74 16 03/01/24 03:01 71 18 03/01/24 03:01 71 18 112/62 98 03/01/24 03:00 71 18 03/01/24 02:30 75 18 90 03/01/24 02:01 82 23 96 03/01/24 02:01 82 23 108/71 96 03/01/24 02:00 85 14 108/71 93 03/01/24 01:30 82 19 99 03/01/24 01:00 78 18 95 03/01/24 01:00 78 18 141/80 H 95 03/01/24 00:30 79 17 96 03/01/24 00:00 77 21 128/79 99 03/01/24 00:00 77 21 99 02/29/24 23:53 78 02/29/24 23:30 77 28 H 97 02/29/24 23:13 75 23 136/82 99 Nasal Cannula 02/29/24 23:02 74 22 136/82 99 02/29/24 23:02 74 22 99 02/29/24 23:00 72 20 99 02/29/24 22:54 72 19 111/80 99 02/29/24 22:54 72 19 99 02/29/24 22:30 74 19 98 02/29/24 22:02 74 15 98 02/29/24 22:00 73 19 97 O2 Flow Rate 03/01/24 09:27 03/01/24 08:00 03/01/24 07:24 03/01/24 06:00 2 03/01/24 06:00 03/01/24 05:30 03/01/24 05:00 03/01/24 05:00 03/01/24 04:30 03/01/24 04:00 03/01/24 04:00 03/01/24 03:30 03/01/24 03:01 03/01/24 03:01 03/01/24 03:00 03/01/24 02:30 03/01/24 02:01 03/01/24 02:01 03/01/24 02:00 03/01/24 01:30 03/01/24 01:00 03/01/24 01:00 03/01/24 00:30 03/01/24 00:00 03/01/24 00:00 02/29/24 23:53 02/29/24 23:30 02/29/24 23:13 2 02/29/24 23:02 02/29/24 23:02 02/29/24 23:00 02/29/24 22:54 02/29/24 22:54 02/29/24 22:30 02/29/24 22:02 02/29/24 22:00
[2024-03-01] MEDS: IRON SUCROSE 200 MG in 0.9 % SODIUM CHLORIDE 100 ML IV ONE (11:10)
[2024-03-01 16:51] LABS: Adenovirus F 40/41 PCR Not Detected (NotDetected); Astrovirus PCR Not Detected (NotDetected); Campylobacter PCR Not Detected (NotDetected); Cryptosporidium PCR Not Detected (NotDetected); Cyclospora cayetanensis PCR Not Detected (NotDetected); Entamoeba histolytica PCR Not Detected (NotDetected); Enteroaggregative E.coli(EAEC) Not Detected (NotDetected); Enteropathogenic E.coli (EPEC) Not Detected (NotDetected); Enterotoxigenic E.coli (ETEC) Not Detected (NotDetected); Giardia lamblia PCR Not Detected (NotDetected); Norovirus GI/GII PCR Not Detected (NotDetected); Plesiomonas shigelloides PCR Not Detected (NotDetected); Rotavirus A PCR Not Detected (NotDetected); Salmonella PCR Not Detected (NotDetected); Sapovirus PCR Not Detected (NotDetected); Shiga-like Toxin E.coli (STEC) Not Detected (NotDetected); Shigella/Enteroinvasive E.coli Not Detected (NotDetected); Vibrio cholerae PCR Not Detected (NotDetected); Vibrio species PCR Not Detected (NotDetected); Yersinia enterocolitica PCR Not Detected (NotDetected)
[2024-03-02] MEDS ORDERED: LOPERAMIDE HCL 2 MG CAP PO PRN (03:03)
--- NOTE | 2024-03-02 06:14 | Communication Note ---
Date of Service: March 02, 2024 CODE NATA called around 6:10 AM. Patient noted to be in agonal respiration as per RN. Possible aspiration as per RN. CPR initiated as pulse could not be found initially. CPR halted after patient raised her arms up as per report. Subsequent intubation done at bedside by ED provider. Continued desaturation despite intubation. Patient bradycardic later losing pulse. CPR efforts resumed for more than 30 minutes. Patient given multiple rounds of epinephrine, bicarb. Patient fianc/sound person, Mr. Naeem Atkins, updated of developments over the phone who requested continued CPR efforts. Patient transferred to ICU. CPR efforts terminated with no ROSC after more than 30 minutes of CPR. Bedside POCUS done by ICU provider did not show cardiac activity. Patient pronounced at 7:01 AM. Attempted to contact Mr. Atkins over the phone to give update on patient device. No answer, left message for call back.
[2024-03-02] MEDS ORDERED: RAPID SEQUENCE INDUCTION BAG ONE (06:21)
[2024-03-02 06:25] LABS: Basophils # (auto) 0.04 K/uL (0.00-0.20); Basophils % (auto) 0.5 %; Eosinophils # (auto) 0.19 K/uL (0.00-0.50); Eosinophils % (auto) 2.6 %; Hematocrit (blood only) 29.4 % (37.0-47.0); Hemoglobin 8.8 g/dl (12.0-16.0); Immature Granulocytes % (auto) 1.4 %; Lymphocytes # (auto) 2.74 K/uL (1.20-3.40); Lymphocytes % (auto) 37.5 %; Mean Corpuscular Hemoglobin 27.3 pg (25.0-34.0); Mean Corpuscular Hgb Conc 29.9 g/dL (32.0-36.0); Mean Corpuscular Volume 91.3 fL (80.0-100.0); Mean Platelet Volume 9.3 fL (9.4-12.4); Monocytes # (auto) 0.84 K/uL (0.11-0.59); Monocytes % (auto) 11.5 %; Neutrophils % (auto) 46.5 %; Platelet Count 206 K/uL (130-400); RDW Coefficient of Variation 19.9 % (11.5-14.5); RDW Standard Deviation 65.9 fL (36.4-46.3); Red Blood Count 3.22 M/uL (4.20-5.40); White Blood Count 7.31 K/ul (4.8-10.8)
[2024-03-02] MEDS ORDERED: SODIUM BICARB 8.4% INJ 50 MEQ/50 ML SYR IV ONE (06:39)
[2024-03-02 06:45] LABS: Albumin Globulin Ratio 0.8 (0.9-2); Albumin Level 2.5 gm/dl (3.4-5.0); BUN Creatinine Ratio 18.8 (10-20); Bilirubin,Total 0.9 mg/dl (0.2-1.0); Calcium 6.7 mg/dl (8.6-10.3); Est GFR (African American) 69.1 ml/min; Est GFR (Non-African American) 59.6 ml/min; Globulin 3.1 gm/dl (2.5-4.0); Phosphorus 3.1 mg/dl (2.5-4.9); Potassium 3.8 mmol/L (3.5-5.1); Total Protein 5.6 gm/dl (6.0-8.3)
--- NOTE | 2024-03-02 07:01 | Emergency Department Note ---
ED Visit Note CODE NATA was called in the hospital and so I presented to the patient's room for airway assistance. RSI intubation per procedure note below. Further management per ICU and admitting team. Procedure: Endotracheal Intubation Indication: Respiratory failure with hypoxia/Airway protection. The patient was on 100% oxygen via NRB prior to the procedure with hypoxia in the 70s. Suction, airway equipment, RSI drugs, respiratory equipment, and appropriate personnel were prepared prior to the initiation of the procedure. Induction was performed with etomidate and paralysis with rocuronium. After observing the clinical benefit of the medications, the airway was visualized utilizing a Mac3 glidescope. A 7.5 size ETT tube was placed atraumatically to 22 cm at the lip using standard technique. The cuff inflated without signs of malfunction. There were bilateral breath sounds, positive colormetric change, no gastric sounds, a good capnography waveform. Post procedure pulse oximetry did not improve initially as patient developed bradycardic arrest but O2 saturation improving to 90s with CPR.
--- NOTE | 2024-03-02 07:06 | Death Pronouncement Note ---
Date of Service March 02, 2024 Pronouncement Note Admission Date February 29, 2024 Date and Time of Date of : 03/02/24 Time of : 07:01 Summary Discharge summary and certificate to be completed by Dr. Mason. Additional Data Confirmation of : no pulse, no respirations, no heart sounds and pupils fixed and dilated Attending physician: Nancy Mason MD Was code activated?: Yes
--- NOTE | 2024-03-02 07:32 | Communication Note ---
Date of Service: March 02, 2024 Presented to room for cardiac arrest. Patient was found unresponsive without pulse for full details see separate code sheet. - Patient was without pulse she was being assisted with BVM with poor ability to get SPo2 waveform, She was given Epinephrine IV and HCO3 and CPR was initiated - Initially she came to and pushed her arms up to the person performing CPR, we then transitioned attention to airway with 2 person BVM, she would groan and moan but would not follow commands and remained staring off without tracking around the room - Decision was made to intubate as she was unable to protect her airway as well remained low blood pressures- She was intubated by Dr. Rao from [facility] x1 attempt - Following intubation patient continued to have low SPO2 with double verification of ETT placement was confirmed, she would again go bradycardic without pulse, she required multiple rounds of epinephrine as well as CPR, which did bring back a rhythm of afib, prior to 1st attempt to transport, she lost her pulse again and CPR was again initiated and she received further epinephrines, bicarb, calcium and eventually regained pulse. Request was made for epinephrine infusion - Dr. Chairez did speak with family, who wished to continue with CPR and full care - She was able to be transferred down to the ICU where as soon as she was into the room, she lost pulses again, bedside POCUS did show no cardiac activity, bedside CO2 monitoring did have adequate waveform in the 20s - CRP was undertaken epinephrine infusion was obtained and initiated, she had another short course of ROSC that again was followed by pulseless arrest. Central Access was attempted, but difficulty with body habitus and CPR in maintaining flow to thread wire. - As this had been multiple arrests and she has remained hypoxic throughout resuscitation efforts were terminated. Bedside POCUS again was employed without any cardiac activity noted. See Note - Family unable to be reached by primary service- assuming they are en route. CC Time 55 minutes direct resuscitation care Cuco PRUETT (ACNP-)
--- NOTE | 2024-03-02 07:46 | Discharge Summary ---
Discharge Summary Date of Service March 02, 2024 Notes For Next Care Provider Pt on 03/02/24 Medication Changes From Visit Pt on 03/02/24 Admission HPI Per Admitting Provider This is a 63yo F with a PMH of paroxysmal A fib anticoagulated no longer on Eliquis, tachybradycardia syndrome, HTN, HLD, hypothyroidism, obesity, kidney stones, neuropathy, history of depression, morbid obesity, recent panniculitis who presents with nausea and vomiting and hypoxia from [facility]. Has been admitted twice previously during 2023, most recently from for acute on chronic anemia secondary to retroperitoneal bleed, panniculitis, FLETCHER on CKD and L1 compression fracture. Eliquis was discontinued at this time due to bleed. Was discharged on 319 to [facility] for rehab. Patient states she started to feel ill a few days ago endorsing chills, lightheadedness, decreased appetite, dry heaves x 4 days with actual vomiting x 2 days. Abdomen is sore from vomiting the past few days. Has pain in sacral wounds and left hip. No palpitation, SOB, dysuria, Endorses ongoing watery diarrhea. States she did have some right chest wall pain during last hospitalization that she sometimes still has intermittently at [facility] with coughing or moving her arms. No chest pain at this time. Has been transferring to bedside commode and wheelchair and starting to ambulate with a walker. Admission Exam Per Admitting Provider General Appearance: WD/WN, vitals as above, laying in bed on side while RNs clean wounds, morbidly obese Head: normocephalic, atraumatic Eyes: normal inspection, PERRL, conjunctivae normal, anicteric sclerae ENT: external ear and nose normal, oropharynx normal Neck: normal visual inspection, trachea midline, no thyromegaly Respiratory: normal respiratory effort, coarse breath sounds bilaterally with scattered wheezes No accessory muscle use Cardiovascular: regular rate, rhythm, 2+ BLE edema. Vessels: unable to assess JVD Chest: normal inspection of chest Abdomen/GI: normal bowel sounds, soft, nontender, no hepatosplenomegaly, + erythema in skin folds Extremities/Musculoskeletal: no cyanosis or clubbing, extremities motor strength 5/5. + Posterior LLL 3x8 cm area contusion without bleeding, TTP Neurologic: PERRL, EOMI, accommodation nl, no face palsy, no dysarthria, CN's II-XI intact bilaterally and moves all extremities Psychiatric: A+Ox3, euthymic affect Skin: warm/dry, extensive sacral pressure ulcer with scattered round wounds up to stage 3 noted on back side, posterior legs, pannicular fold, L heel Principal Dx & Hospital Course #1 = Principal Diagnosis (1) Cardiac arrest: (2) Acute hypoxic respiratory failure: (3) On mechanically assisted ventilation: (4) Aspiration into airway: (5) Tachycardia-bradycardia syndrome: (6) Retroperitoneal bleed: (7) Nausea and vomiting: (8) Elevated troponin: (9) Hypoxia: (10) Anemia: (11) Panniculitis: (12) Generalized weakness: (13) Morbid obesity with BMI of 60.0-69.9, adult: (14) Hypertension: (15) Hypothyroidism: (16) Atrial fibrillation: (17) HLD (hyperlipidemia): (18) Aortic stenosis: Plan This is a 63-year-old female with past medical significant for paroxysmal atrial fibrillation anticoagulated on Eliquis, tachybradycardia syndrome, HFpEF HTN, HLD, hypothyroidism, obesity, kidney stones, neuropathy ,history of depression, morbid obesity, recent retroperitoneal hematoma and other medical problems listed below who presented from [facility] with nausea and vomiting, hypoxia and troponin elevation. Has been admitted twice previously during 2023, most recently from 01/29- for acute on chronic anemia secondary to retroperitoneal bleed, panniculitis, FLETCHER on CKD and L1 compression fracture. Eliquis was discontinued at this time due to bleed. Returning from [facility] with worsening sacral wounds, other wounds on posterior legs, N/V and elevated troponin. On 03/02/24, pt after a possible aspiration event overnight. Documentation per the hydrological technical officer: "CODE BLUE called around 6:10 AM. Patient noted to be in agonal respiration as per RN. Possible aspiration as per RN. CPR initiated as pulse could not be found initially. CPR halted after patient raised her arms up as per report. Subsequent intubation done at bedside by ED provider. Continued desaturation despite intubation. Patient bradycardic later losing pulse. CPR efforts resumed for more than 30 minutes. Patient given multiple rounds of epinephrine, bicarb. Patient fianc/personal shopper, Mr. Naeem Atkins, updated of developments over the phone who requested continued CPR efforts. Patient transferred to ICU. CPR efforts terminated with no ROSC after more than 30 minutes of CPR. Bedside POCUS done by ICU provider did not show cardiac activity. Patient pronounced at 7:01 AM." She was previously being treated for the following during this hospitalization: Acute hypoxia Saturating in high 80s on admission, afebrile VBG unremarkable Now 95% on 2 L NC Resp panel negative CT chest noting a bronchitis with mucous plugging On rocephin for UTI (see below), possible addition of doxycycline/azithromycin Percussive vest therapy Cont supplemental O2 Nausea/vomiting/diarrhea Acute gastroenteritis Resp biofire negative Stool culture negative C diff negative Antiemetics, supportive treatments- caution fluid resuscitation given volume overloaded status, lactate WNL Demand ischemia NSTEMI Type II Elevated troponin Elevated troponin with N/V, reports R sided chest pain the past week but not in past few days, no ST elevation on EKG, some nonspecific T wave changes HS troponin 672 -> 694.6 -->392 Trop elevated in the past but 40 or less Not a good candidate for IV heparin given recent retroperitoneal bleed in LLE, recently had Eliquis discontinued Echo noting EF> 70%, aortic stenosis, Grade I diastolic dysfunction with no noted wall abnormalities Likely elevation in setting of demand with sig N/V/D, NSTEMI Type II Discussed with Cardiology who agrees with holding off on IV heparin given history. Medically manage, consult cardiology should pt develop symptoms or develop decompensated HF (see below) Complicated UTI UA suggestive of infection Urine cx currently growing gram positive cocci Blood Cx x 2 sets with NGTD Recent ureteral stent placement, CT abd pelvis noting improved hydronephrosis Continue Rocephin and empiric Dapto, narrow based on Cx results BLE wounds, sacral wounds, possible cellulitis Involving lower extremities and panniculitis and also left lateral thigh and hip Significantly worsened since discharge from hospital, per patient Admittedly not moving out of bed except to use bedside commode Afebrile, no leukocytosis Wound care at bedside in ED, placing a hernandez catheter and rectal tube to keep perineal area dry Dapto, rocephin as above for empiric abx coverage Nystatin for skin folds Wound Care nurse consulted Retroperitoneal hematoma H/o intramuscular hemorrhage of left psoas and iliopsoas muscles during last admission in January, small extraperitoneal hemorrhage extending into pelvis In setting of anticoagulation with Eliquis, which has been held since then Required 4 units prbcs during stay CT abd/pelvis with mild interval decrease in size of the large left retroperitoneal/infrarenal hematoma since CT of February 08, 2024. Interval decrease in associated intramuscular hemorrhage. No new sites of bleeding. Hgb stable at ~9.6 (previously 8.4) CKD stage III/IV Cr: 1.13, significantly improved from previous Continue to monitor Stable Iron Deficiency Anemia hgb 9, actually better Iron level low, transferrin sat <20%, ferritin wnl but likely elevated as an acute phase reactant given pt's multiple comorbidities and acute illness s/p 1 dose of IV Venofer on 03/01 transfuse as needed Coagulopathy PT/INR elevated not on anticoagulation currently in setting of retroperitoneal bleed Chronic HFpEF Was managed by [employer] previously BNP 734 Echo noting EF> 70%, aortic stenosis, Grade I diastolic dysfunction with no noted wall abnormalities Home diuretic changed to Furosemide 80mg BID and KCL increased to 30mEq TID, managed by nephrology on previous admission Received 40mg IV Lasix ton admission, transitioned back to home lasix po dosing. Daily weights, I&Os, low sodium diet Hypomagnesemia Mg 1.5 Repleted as needed Atrial fibrillation H/O Tachybradycardia syndrome Refused pacemaker in the past Continue metoprolol and digoxin Eliquis has been held since January hospitalization 2/2 retroperitoneal hematoma Hypertension Continue metoprolol Monitor BP Hyperlipidemia On statin, holding while on dapto Morbid obesity Counseled extensively regarding need for weight loss BMI 77 Hypothyroidism Continue levothyroxine TSH free T4 abnormalities noted, has been acutely sick for weeks Hyperglycemia Glucose level elevated Hgba1c reassuring, in normal range Discharge Exam General: laying in bed, unresponsive. partner at bedside Resp: no respirations noted Abdomen: Soft Extremities: edema in lower extremities bilaterally. Updated Medication List Medication Instructions Recorded Confirmed Type alendronate 70 mg tablet 70 mg PO WK 30 days #4 tabs 02/15/24 02/29/24 Rx atorvastatin 40 mg tablet 40 mg PO DAILY 30 days #30 tabs 02/15/24 02/29/24 Rx cholecalciferol (vitamin D3) 25 25 mcg PO DAILY #30 caps 02/15/24 02/29/24 Rx mcg (1,000 unit) capsule (Vitamin D3) famotidine 20 mg tablet 20 mg PO BID #60 tabs 02/15/24 02/29/24 Rx furosemide 80 mg tablet 80 mg PO BID #60 tabs 02/15/24 02/29/24 Rx gabapentin 300 mg capsule 300 mg PO HS 30 days #30 caps 02/15/24 02/29/24 Rx levothyroxine 100 mcg tablet 100 mcg PO QAM 30 days #30 tabs 02/15/24 02/29/24 Rx (Euthyrox) metoprolol succinate 50 mg 100 mg (2 x 50 mg) PO BID 30 days 02/15/24 02/29/24 Rx tablet,extended release 24 hr #120 tabs tamsulosin 0.4 mg capsule 0.4 mg PO HS #30 caps 02/15/24 02/29/24 Rx acetaminophen 325 mg tablet 650 mg PO Q6H PRN fever or pain 02/29/24 02/29/24 History ascorbic acid (vitamin C) 500 mg 500 mg PO DAILY 02/29/24 02/29/24 History tablet (Vitamin C) citalopram 10 mg tablet (Celexa) 10 mg PO DAILY 02/29/24 02/29/24 History diclofenac sodium 1 % topical gel 4 g EXT Q6H knee pain 02/29/24 02/29/24 History (Voltaren Arthritis Pain) digoxin 125 mcg (0.125 mg) tablet 0.125 mg PO MOWEFR@0900 02/29/24 02/29/24 History (Digitek) omeprazole 20 mg tablet,delayed 20 mg PO DAILY 02/29/24 02/29/24 History release potassium chloride 10 mEq 10 meq PO TID 02/29/24 02/29/24 History capsule,extended release potassium chloride 20 mEq 20 meq PO TID 02/29/24 02/29/24 History tablet,extended release saliva substitute combo no.9 1 ea PO QID PRN Dry Mouth 02/29/24 02/29/24 History (Biotene PBF mouthwash) Hospital Stay Data Consultations 02/29/24 16:07 ED Decision to Admit Stat 03/02/24 07:43 Consult [facility] Routine Diagnostic Imagining Performed 02/29/24 14:06 CT abd pelvis wo con Stat 02/29/24 17:41 CT chest diagnostic wo con Routine Abdomen/Pelvis CT 02/29/24 14:06 CT OF THE ABDOMEN AND PELVIS WITHOUT CONTRAST CLINICAL HISTORY: Abdominal pain, vomiting, sacral wounds. COMPARISON STUDY: CT of the abdomen and pelvis February 08, 2024. TECHNIQUE: Axial images of the abdomen and pelvis were obtained without IV contrast. Images were reviewed in the axial, sagittal, and coronal planes. Automated exposure control was utilized for the study. A dose lowering technique was utilized adhering to the principles of ALARA. FINDINGS: Lung bases are unremarkable. No pneumatosis, free air or portal venous gas is present. Unenhanced images of liver, spleen, adrenal glands and pancreas are unremarkable. There is no biliary or pancreatic ductal dilatation. There is no evidence for a bowel obstruction. The appendix is normal. There is sigmoid diverticulosis without evidence for acute diverticulitis. Postoperative findings within the bilateral femurs are again noted. An L1 compression fracture is unchanged in appearance. Bilateral renal calculi measure up to 1.6 cm. Left ureteral stent remains in place. There are no ureteral calculi. Mild left hydronephrosis has slightly decreased since prior exam. Images of the pelvis are degraded by artifact. A left retroperitoneal hematoma has slightly decreased in size since prior CT. It now measures 11.1 x 6.6 cm, previously 11.9 x 6.9 cm. Adjacent intramuscular hemorrhage has decreased. No sites of hemorrhage are identified. IMPRESSION: 1. Mild interval decrease in size of the large left retroperitoneal/infrarenal hematoma since CT of February 08, 2024. Interval decrease in associated intramuscular hemorrhage. No new sites of bleeding. 2. Left ureteral stent in place. Slight decrease in left hydronephrosis. No ureteral calculi identified. 3. Bilateral nephrolithiasis. 4. No bowel obstruction. ACT 112: Negative or not required by law. Electronically signed by: Giorgio Rincon M.D. 02/29/2024 3:33 PM Chest X-Ray 02/29/24 14:06 XR chest 1V portable HISTORY: 63 years-old Female weakness, hypoxia acute weakness with hypoxia COMPARISON: Chest CT 02/08/2024 TECHNIQUE: AP view of the chest FINDINGS: Cardiomediastinal and hilar silhouettes are unchanged. Atherosclerosis of the aorta. No pneumothorax, pleural effusion or airspace consolidation. Spondylotic spurring of the spine. IMPRESSION: No acute process. ACT 112: Negative or not required by law. The above report was generated using voice recognition software. It may contain grammatical, syntax or spelling errors. Electronically signed by: Harsh Olivarez M.D. 02/29/2024 2:[address] 02/29/24 17:41 CT chest diagnostic wo con CT DOSE: 1228.14 mGy.cm CLINICAL HISTORY: 63 years-old Female with volume overload, N/V. Acute shortness of breath with nausea and vomiting. Fluid overload. TECHNIQUE: Multiaxial CT images of the chest were performed without contrast. A dose lowering technique was utilized adhering to the principles of ALARA. COMPARISON: CT abdomen and pelvis of same day, chest CT 02/08/2024 FINDINGS: Unremarkable thyroid. 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 Moderate cardiomegaly with decreased attenuation of the cardiac blood pool compatible with anemia. Trace pericardial effusion. Extensive coronary artery calcifications. Atherosclerosis of the aorta without aneurysm. No lymphadenopathy. No pneumothorax, pleural effusion or overt pulmonary edema. No airspace consolidation typical for pneumonia. Minimal left apical atelectasis versus scarring with left upper lobe air trapping. There are no suspicious pulmonary nodules or masses identified. Minimal subsegmental left basilar atelectasis. Bronchial wall thickening with areas of mucous plugging. Partially imaged left renal calculus. No acute fracture identified. Degenerative changes of the shoulders and spine. Healing subacute nondisplaced bilateral rib fractures again noted. Chronic L1 fracture deformity. IMPRESSION: 1. No evidence of pulmonary edema or pneumonia. 2. Mild bronchial wall thickening may represent bronchitis with areas of mucous plugging. 3. Left nephrolithiasis. 4. Healing subacute nondisplaced bilateral rib fractures. ACT 112: Negative or not required by law. Electronically signed by: Harsh Olivarez M.D. 02/29/2024 6:51 PM Discharge Instructions Given to Patient (Per Discharging Provider) Pt . Total Time Total Time Spent Total Time Spent (In Minutes): > 30 minutes
[2024-03-02] MEDS ORDERED: ROCURONIUM BROMIDE 10 MG/ML 5 ML VIAL IV ONE (14:29)
[2024-03-02] MEDS ORDERED: SODIUM CHLORIDE 0.9% 1000 ML BAG IV ONE (14:29)
[2024-03-02] MEDS ORDERED: ATROPINE SULFATE 0.1 MG/ML 10ML SYR IV ONE (14:29)
[2024-03-02] MEDS ORDERED: ETOMIDATE 2 MG/ML 20 ML VIAL IV ONE (14:29)
[2024-03-02] MEDS ORDERED: SODIUM CHLORIDE 0.9% 10ML FLUSH IV ONE (14:29)
--- NOTE | 2024-03-03 19:03 | Electrocardiogram Report ---
Test Reason : Blood Pressure : / mmHG Vent. Rate : 079 BPM Atrial Rate : 079 BPM P-R Int : 154 ms QRS Dur : 062 ms QT Int : 390 ms P-R-T Axes : 054 008 -04 degrees QTc Int : 447 ms Normal sinus rhythm Low voltage QRS Cannot rule out Anterior infarct , age undetermined Abnormal ECG When compared with ECG of 29-JAN-2024 20:38, Nonspecific T wave abnormality now evident in Anterior leads Confirmed by Endy Miner ([id number]) on 03/03/2024 7:02:41 PM Referred By: Confirmed By:Endy Miner
--- NOTE | 2024-03-04 00:43 | Electrocardiogram Report ---
Test Reason : Blood Pressure : / mmHG Vent. Rate : 083 BPM Atrial Rate : 083 BPM P-R Int : 158 ms QRS Dur : 074 ms QT Int : 398 ms P-R-T Axes : 058 000 -70 degrees QTc Int : 467 ms Normal sinus rhythm Low voltage QRS Cannot rule out Anterior infarct (cited on or before 29-FEB-2024) Abnormal ECG When compared with ECG of 29-FEB-2024 14:16, (unconfirmed) Questionable change in initial forces of Anterior leads Confirmed by Endy Miner ([id number]) on 03/04/2024 12:43:18 AM Referred By: [facility] Confirmed By:Endy Miner
[2024-03-06] MEDS ORDERED: ALENDRONATE SODIUM 70 MG TAB PO SCH (07:00)
== END 2024-03-02 14:30 | disposition expired | DRG 391 ==
LOC: ED 13:29 → EDINP 16:32 → 2E 03-01 16:22 → 1E 03-02 06:55